=== PATIENT | male | born 1935 | race Caucasian/White ===

== ENCOUNTER 2017-05-01 11:37 | Inpatient (IN) | payer MEDICARE, BC ==
[~2017-05-01] VITALS: Ht 172.7 cm; Wt 91.5 kg
[~2017-05-01 11:37] MED LIST: ACET-2047 PO; ADV25050 INH; ASPI-664 PO; BISA-57 PO; CARV3.1260 PO; CLOB15OI15 TOP; DIAZ5TAB4 PO; FER325 PO; MAGN400T27 PO; MONT10TA24 PO; Nicotine (14 Mg/24 Hr) TRANSDERM; OMEG-135 PO; PARO40TA48 PO; RAMI2.5C36 PO; TIOT18CA INH; TIZA4TAB PO; VIT1TABL46 PO
[2017-05-01] MEDS ORDERED: METHYLPREDNISOLONE 125 MG INJ IV STA (12:05)
[2017-05-01] MEDS ORDERED: ALBUTEROL 0.083% (NEB) 2.5 MG/3 ML AMP INH STA (12:05)
[2017-05-01] MEDS ORDERED: LEVOFLOXACIN 750MG/D5W (PMX) 150 ML IVPB STA (12:05)
[2017-05-01] MEDS ORDERED: IPRATROPIUM (NEB) 0.5 MG/2.5 ML AMP INH STA (12:05)
[2017-05-01] MEDS ORDERED: ATOR20TA38 PO (12:30)
[2017-05-01] MEDS ORDERED: LUBI24CA7 PO (12:31)
[2017-05-01] MEDS ORDERED: ALBU18HF INHALATION (12:31)
[2017-05-01] MEDS ORDERED: TIOT18CA INHALATION (12:33)
[2017-05-01 12:49] LABS: ADD SCAN DIFF NO
[2017-05-01 12:53] LABS: BASOPHIL # 0.1 10^3/ul (0.0-0.1); BASOPHILS % 0.6 % (0.0-2.0); EOSINOPHILS # 0.6 10^3/ul (0.0-0.5); HEMATOCRIT 37.2 % (42.0-52.0); HEMOGLOBIN 12.2 g/dl (14.0-18.0); LYMPHOCYTES # 1.3 10^3/ul (0.8-2.9); MEAN CORPUSCULAR HEMOGLOBIN 30.1 pg (29.0-33.0); MEAN CORPUSCULAR HGB CONC 32.8 g/dl (32.0-37.0); MEAN CORPUSCULAR VOLUME 91.9 fl (82.0-101.0); MONOCYTE # 0.7 10^3/ul (0.3-0.9); MONOCYTES % 7.4 % (0.0-11.0); NEUTROPHIL # 6.9 10^3/ul (1.6-7.5); NEUTROPHILS % 71.8 % (39.0-77.0); PLATELET COUNT 143 10^3/UL (140-415); RED BLOOD COUNT 4.05 10^6/ul (4.70-6.10); RED CELL DISTRIBUTION WIDTH 15.5 % (11.5-14.5); WHITE BLOOD COUNT 9.6 10^3/ul (4.8-10.8)
[2017-05-01 12:54] LABS: MEAN PLATELET VOLUME 11.7 fl (7.4-10.4)
[2017-05-01 13:07] LABS: INR 0.86; PROTIME 11.7 Sec (12.2-14.2); PT RATIO 0.9
[2017-05-01 13:08] LABS: PARTIAL THROMBOPLASTIN TIME 27.8 Sec (25.0-35.0)
[2017-05-01 13:15] LABS: ANION GAP 9 (8-16); BLOOD UREA NITROGEN 20 mg/dl (7-20); CALCIUM 9.2 mg/dl (8.4-10.2); CARBON DIOXIDE 31 mmol/L (21-31); CHLORIDE 101 mmol/L (97-110); CREATININE 1.02 mg/dl (0.61-1.24); GLUCOSE 110 mg/dl (70-220); POTASSIUM 5.2 mmol/L (3.5-5.1); SODIUM 136 mmol/L (135-144)
[2017-05-01 13:32] LABS: TROPONIN-I < 0.012 ng/ml (0.00-0.12)
--- NOTE | 2017-05-01 13:57 | RADRPT ---
PROCEDURE: XR, Chest. CLINICAL INDICATION: Shortness of breath. TECHNIQUE: AP chest COMPARISON: Chest, 07/25/2016. FINDINGS: There is no acute infiltrate in the lungs. The lungs are overinflated. No pleural effusion. There is mild calcified atherosclerosis of the aortic arch. The heart is somewhat enlarged. IMPRESSION: 1. Overinflated lungs. 2. Mild cardiomegaly. Mild calcified atherosclerosis of the aortic arch. RPTAT: GG .Rubin Dunn MD, MD Date Time Electronically viewed and signed by .Rubin Dunn MD, MD on 05/01/2017 13:56 .Y/
[2017-05-01] MEDS ORDERED: ALBUTEROL 0.083% (NEB) 2.5 MG/3 ML AMP NEB STA (14:33)
[2017-05-01] MEDS ORDERED: ACETAMINOPHEN 325 MG TAB PO PRN ×2 (15:00→19:00)
[2017-05-01] MEDS ORDERED: ONDANSETRON 4 MG INJ IV PRN (15:00)
--- NOTE | 2017-05-01 15:06 | ERA ---
ER Documentation Chief Complaint Date/Time DATE: 05/01/17 TIME: 14:56 Chief Complaint SOB X1 DAY, NEEDED O2 ALL NIGHT HPI 81-year-old male with a history of COPD, CAD with 4 stents, and hypertension presenting to the ER with shortness of breath since yesterday. He has home oxygen available but is not on it all the time. He started using his home oxygen with improvement of his breathing. He endorses chronic cough with increased phlegm in the past 2 days. Phlegm is whitish milky. He denies any fevers, chills, chest pain, abdominal pain, or leg swelling. He continues to smoke daily. ROS All systems reviewed and are negative except as per history of present illness. Medications Home Meds Reported Medications Tiotropium [place]* (Spiriva*) 18 Mcg Cap.w.dev, 1 CAP INHALATION DAILY, #30 CAP 05/01/17 Albuterol Sulfate* (Ventolin HFA*) 18 Gm Hfa.aer.ad, 2 PUFF INHALATION Q6H Y for SHORTNESS OF BREATH, #1 INHALER 05/01/17 Lubiprostone* (Amitiza*) 24 Mcg Capsule, 24 MCG PO BID, #60 CAP 05/01/17 Atorvastatin Calcium* (Atorvastatin Calcium*) 20 Mg Tablet, 20 MG PO QHS, #30 TAB 05/01/17 Diazepam* (Diazepam*) 5 Mg Tablet, 5 MG PO BID, TAB 07/19/16 Carvedilol* (Carvedilol*) 3.125 Mg Tablet, 3.125 MG PO DAILY, #60 TAB 07/19/16 Magnesium Oxide* (Mag-Oxide*) 400 Mg Tablet, 400 MG PO BID, TAB 07/19/16 Montelukast Sodium* (Montelukast Sodium*) 10 Mg Tablet, 10 MG PO QHS, #30 TAB 07/19/16 Paroxetine Hcl* (Paxil*) 40 Mg Tablet, 40 MG PO DAILY, TAB 07/19/16 Ramipril (Ramipril) 2.5 Mg Capsule, 2.5 MG PO DAILY, CAP 07/19/16 Aspirin (Low Dose Aspirin) 81 Mg Tablet.dr, 81 MG PO DAILY, #30 TAB 07/19/16 Salmeterol Xinaf/Fluticasone* (Advair*) 250-50 Diskus Inhaler, 1 INH INH BID, INH 09/27/14 Ferrous Sulfate* (Ferrous Sulfate*) 325 Mg Tabec, 325 MG PO BID, TAB 09/27/14 Discontinued Reported Medications Clobetasol Propionate* (Clobetasol Propionate*) 15 Gm Oint, 1 APPLIC TOP BID, # 1 TUB 07/19/16 Acetaminophen* (Acetaminophen*) 650 Mg Tablet, 650 MG PO Q6H Y for PAIN AND OR ELEVATED TEMP, #30 TAB 07/19/16 [place]-3 Fatty Acids/Fish Oil (Fish Oil 1,000 mg Capsule) 1 Each Capsule, 1 EACH PO DAILY, CAP 07/19/16 Bisacodyl* (Dulcolax*) 5 Mg Tablet.dr, 5 MG PO DAILY, TAB 07/19/16 Vitamin B Complex* (Vitamin B Complex*) 1 Each Tablet, 1 TAB PO DAILY, TAB 07/19/16 Tizanidine Hcl* (Tizanidine Hcl*) 4 Mg Tablet, 4 MG PO BID Y for SPASTICITY, TAB 07/19/16 Tiotropium [place]* (Spiriva*) 18 Mcg Cap.w.dev, 18 MCG INH DAILY 12/15/11 Discontinued Scripts [Nicotine (14 Mg/24 Hr)] 1 PATCH PATCH No Conflict Check, 1 PATCH TRANSDERM DAILY Prov:BREEZY FRIAS MD 07/26/16 Allergies Allergies: Coded Allergies: No Known Allergy (Verified , 05/01/17) PMhx/Soc History of Surgery: Yes (see PT notes) Anesthesia Reaction: No Hx Neurological Disorder: No Hx Respiratory Disorders: Yes (COPD) Hx Cardiac Disorders: Yes (TX stents x 4, cardiac arrest ) Hx Psychiatric Problems: Yes (depression anxiety) Hx Miscellaneous Medical Probl: Yes (see PT notes, HTN) Hx Alcohol Use: No Hx Substance Use: No Hx Tobacco Use: Yes Smoking Status: Current every day smoker FmHx Family History: No diabetes Physical Exam Vitals Vital Signs Date Time Temp Pulse Resp B/P Pulse Ox O2 Delivery O2 Flow Rate FiO2 05/01/17 13:18 72 22 134/49 100 Mask 10.0 05/01/17 12:55 Nasal Cannula 3 05/01/17 12:45 79 20 96 21 05/01/17 12:45 2.0 05/01/17 12:01 94 Nasal Cannula 2.0 05/01/17 11:57 77 20 144/57 85 05/01/17 11:42 97.7 77 22 127/58 91 Physical Exam Const: Mild respiratory distress, nontoxic Head: Atraumatic Eyes: Normal Conjunctiva ENT: Normal External Ears, Nose and Mouth. Neck: Full range of motion..~ No meningismus. No JVD Resp: Diminished breath sounds bilaterally with significant expiratory wheezing throughout Cardio: Regular rate and rhythm, no murmurs Abd: Soft, non tender, non distended. Normal bowel sounds Skin: No petechiae or rashes Back: No midline or flank tenderness Ext: No cyanosis, or edema. No calf tenderness Neur: Awake and alert and oriented 3, cranial nerves grossly intact, strength and sensations intact. Psych: Normal Mood and Affect Result Diagram: 05/01/17 1225 05/01/17 1225 Results 24 hrs Laboratory Tests Test 05/01/17 12:25 White Blood Count 9.610^3/ul Red Blood Count 4.0510^6/ul Hemoglobin 12.2g/dl Hematocrit 37.2% Mean Corpuscular Volume 91.9fl Mean Corpuscular Hemoglobin 30.1pg Mean Corpuscular Hemoglobin Concent 32.8g/dl Red Cell Distribution Width 15.5% Platelet Count 54569^3/UL Mean Platelet Volume 11.7fl Neutrophils % 71.8% Lymphocytes % 14.0% Monocytes % 7.4% Eosinophils % 6.0% Basophils % 0.6% Nucleated Red Blood Cells % 0.0/100WBC Neutrophils # 6.910^3/ul Lymphocytes # 1.310^3/ul Monocytes # 0.710^3/ul Eosinophils # 0.610^3/ul Basophils # 0.110^3/ul Nucleated Red Blood Cells # 0.010^3/ul Prothrombin Time 11.7Sec Prothrombin Time Ratio 0.9 INR International Normalized Ratio 0.86 Activated Partial Thromboplast Time 27.8Sec Sodium Level 136mmol/L Potassium Level 5.2mmol/L Chloride Level 101mmol/L Carbon Dioxide Level 31mmol/L Anion Gap 9 Blood Urea Nitrogen 20mg/dl Creatinine 1.02mg/dl Glucose Level 110mg/dl Lactic Acid Level 1.2mmol/L Calcium Level 9.2mg/dl Troponin I < 0.012ng/ml Current Medications Medications (Trade) Dose Ordered Sig/Rolando Route PRN Reason Start Time Stop Time Status Last Admin Dose Admin Albuterol (Proventil 0.083% (Neb)) 7.5 mg ONCE STAT INH 05/01/17 12:05 05/01/17 12:08 DC 05/01/17 12:42 Ipratropium [place] (Atrovent 0.02% (Neb)) 0.5 mg ONCE STAT INH 05/01/17 12:05 05/01/17 12:08 DC 05/01/17 12:42 Methylprednisolone Sodium Succinate 125 mg 125 mg ONCE STAT IV 05/01/17 12:05 05/01/17 12:08 DC 05/01/17 12:50 Levofloxacin/ Dextrose (Levaquin 750 Mg/ D5W 150 ml (Pmx)) 150 ml @ 100 mls/hr ONCE STAT IVPB 05/01/17 12:05 05/01/17 13:34 DC 05/01/17 12:50 Albuterol (Proventil 0.083% (Neb)) 7.5 mg ONCE STAT NEB 05/01/17 14:33 05/01/17 14:35 DC Procedures/MDM EKG: Rate/Rhythm: Normal Sinus Rhythm QRS, ST, T-waves: No changes consistent w/ acute ischemia Impression: No evidence of ischemia or arrhythmia Chest x-ray shows no acute abnormality Labs show mild hyperkalemia, otherwise normal MDM Shortness of breath most consistent with COPD exacerbation. Vitals were notable for tachypnea and hypoxia on room air to 85%. Sepsis workup was initiated. Hypoxia improved with supplemental oxygen. Nebulizers, steroids and antibiotics administered without significant improvement or stabilization of symptoms. Considered URI, pneumonia, allergic reaction, PE, pericardial effusion, but less likely based on history and physical. EKG and CXR unremarkable. Patient will be admitted for respiratory monitoring and treatments. Further workup will be deferred to the inpatient team. Critical Care Time: 40 minutes Treatments/Evaluations: Close monitoring and treatment of unstable vital signs, cardiorespiratory, and neurologic status, while maintaining tight balance of fluid, respiratory, and cardiac interventions. This time includes discussing the case with the patient and the patients family. This time does not include all procedures stated elsewhere in this record. This time also includes reviewing old records, labs and radiological studies. This time includes examining and re-examining the patient. Additionally, this time also includes arranging care with admitting and consulting physicians. Accepting Care Team: Current data and ongoing care discussed. Time: Time of admission Primary Provider: Tabitha Consulting: none Outstanding Data: none Departure Diagnosis: Primary Impression: Acute respiratory failure with hypoxia and hypercapnia Additional Impression: COPD with exacerbation Condition: Serious KIMMY KIMBLE MD May 01, 2017 15:06
[2017-05-01 16:49] VITALS: Ht 172.7 cm; Wt 91.5 kg
[2017-05-01 17:14] VITALS: BP 102/58; PULSE 78; RESP 20
[2017-05-01 19:29] VITALS: BP 104/67; RESP 18
[2017-05-01] MEDS ORDERED: ALBUTEROL 18 GM INHALER INH PRN (20:30)
[2017-05-01] MEDS: MAGNESIUM OXIDE 400 MG TAB PO SCH (20:57)
[2017-05-01] MEDS: ATORVASTATIN 20 MG TAB PO SCH (20:57)
[2017-05-01] MEDS: FERROUS SULFATE (EC) 325 MG TAB PO SCH (20:57)
[2017-05-01] MEDS: MONTELUKAST 10 MG TAB PO SCH (20:58)
[2017-05-01] MEDS: LUBIPROSTONE 24 MCG CAP PO SCH (20:58)
[2017-05-01] MEDS: DIAZEPAM 5 MG TAB PO SCH (20:58)
[2017-05-01] MEDS: SALMETEROL/FLUTICASONE 250/50 INHA INH SCH (20:59)
[2017-05-01] MEDS ORDERED: METHYLPREDNISOLONE 40 MG INJ IV ONE (21:00)
[2017-05-02 06:07] LABS: ADD SCAN DIFF NO
[2017-05-02 06:13] LABS: BASOPHILS % 0.1 % (0.0-2.0); HEMATOCRIT 35.2 % (42.0-52.0); HEMOGLOBIN 11.4 g/dl (14.0-18.0); LYMPHOCYTES # 0.8 10^3/ul (0.8-2.9); LYMPHOCYTES % 7.2 % (15.0-51.0); MEAN CORPUSCULAR HEMOGLOBIN 29.5 pg (29.0-33.0); MEAN CORPUSCULAR HGB CONC 32.4 g/dl (32.0-37.0); MEAN PLATELET VOLUME 10.1 fl (7.4-10.4); MONOCYTE # 0.1 10^3/ul (0.3-0.9); MONOCYTES % 1.2 % (0.0-11.0); NEUTROPHIL # 10.4 10^3/ul (1.6-7.5); PLATELET COUNT 220 10^3/UL (140-415); RED BLOOD COUNT 3.87 10^6/ul (4.70-6.10); RED CELL DISTRIBUTION WIDTH 15.5 % (11.5-14.5); WHITE BLOOD COUNT 11.4 10^3/ul (4.8-10.8)
[2017-05-02 06:16] LABS: NEUTROPHILS % 91.1 % (39.0-77.0)
[2017-05-02 06:58] LABS: ALBUMIN/GLOBULIN RATIO 1.29; CALCIUM 9.3 mg/dl (8.4-10.2); CREATININE 1.07 mg/dl (0.61-1.24); MAGNESIUM 1.9 mg/dl (1.7-2.5); POTASSIUM 4.8 mmol/L (3.5-5.1); TOTAL PROTEIN 7.1 g/dl (6.1-8.1)
[2017-05-02 07:43] VITALS: BP 109/53; RESP 18
--- NOTE | 2017-05-02 08:19 | RADRPT ---
PROCEDURE: XR Chest 1 View. CLINICAL INDICATION: Shortness of breath TECHNIQUE: AP view of the chest was obtained. COMPARISON: Yesterday FINDINGS: The cardiomediastinal silhouette is within normal limits. Blunting left costophrenic angle is unchan ged. Atelectasis is noted at the lung bases. No consolidations are identified. No pneumothorax is seen. Mild interstitial prominence in both lungs is unchanged. The osseous structures are unchanged. IMPRESSION: Stable blunting of the left costophrenic angle that may reflect scarring or small pleural effusion. Atelectasis at the lung bases. Stable mild interstitial prominence in both lungs. Interstitial prominence could be chronic. RPTAT: AA .Kush Parra MD, Date Time Electronically viewed and signed by .Kush Parra MD, on 05/02/2017 08:19 .P/
[2017-05-02] MEDS: MAGNESIUM OXIDE 400 MG TAB PO SCH ×2 (08:26→20:42)
[2017-05-02] MEDS: LUBIPROSTONE 24 MCG CAP PO SCH ×2 (08:26→20:42)
[2017-05-02] MEDS: PAROXETINE 20 MG TAB PO SCH (08:27)
[2017-05-02] MEDS: FERROUS SULFATE (EC) 325 MG TAB PO SCH ×2 (08:28→20:42)
[2017-05-02] MEDS: ASPIRIN (EC) 81 MG TAB PO SCH (08:28)
[2017-05-02] MEDS: BENAZEPRIL 10 MG TAB PO SCH (08:32)
[2017-05-02] MEDS: TIOTROPIUM 18 MCG CAPSULE INHA DEV INH SCH (08:34)
[2017-05-02] MEDS: SALMETEROL/FLUTICASONE 250/50 INHA INH SCH ×2 (08:35→20:42)
[2017-05-02] MEDS: DIAZEPAM 5 MG TAB PO SCH ×2 (08:57→20:42)
[2017-05-02] MEDS: LEVOFLOXACIN 750MG/D5W (PMX) 150 ML IVPB SCH (13:33)
[2017-05-02 13:51] LABS: MODE NASAL CANNULA; MetHgb Venous 0.4 %; Sample Type Blood venous; Venous COHb 0.2 %; Venous Fraction OxyHgb 34.1 %; Venous Total Hemglobin 13.1 g/dl
--- NOTE | 2017-05-02 15:32 | PN ---
Date/Time of Note Date/Time of Note DATE: 05/02/17 TIME: 15:30 Assessment/Plan VTE Prophylaxis VTE Prophylaxis Intervention: other (asa) Lines/Catheters [facility]from [facility] Saline Lock Central line still needed: No Urinary Cath still in place: No Assessment/Plan Assessment/Plan 1. copd exacerbation/ pneumonitis 2. cad/ htn 3. djd ---cont atbx ---cont ivf ---cont RT ---cont all supportive cares Subjective 24 Hr Interval Summary Free Text/Dictation less sob Exam/Review of Systems Vital Signs Vitals Vital Signs Date Time Temp Pulse Resp B/P Pulse Ox O2 Delivery O2 Flow Rate FiO2 05/02/17 12:01 Nasal Cannula 2.0 05/02/17 07:43 98.0 80 18 109/53 92 05/01/17 12:45 21 Intake and Output 05/01/17 05/01/17 05/02/17 15:00 23:00 07:00 Intake Total 240 ml 800 ml Output Total 500 ml Balance 240 ml 300 ml Exam bronch wheez+ rr no edema Results Result Diagram: 05/02/17 0549 05/02/17 0549 Results 24 hrs Laboratory Tests Test 05/01/17 16:20 05/01/17 18:30 05/02/17 05:49 Lactic Acid Level 1.9 3.3 H White Blood Count 11.4 H Red Blood Count 3.87 L Hemoglobin 11.4 L Hematocrit 35.2 L Mean Corpuscular Volume 91.0 Mean Corpuscular Hemoglobin 29.5 Mean Corpuscular Hemoglobin Concent 32.4 Red Cell Distribution Width 15.5 H Platelet Count 220 # Mean Platelet Volume 10.1 Neutrophils % 91.1 H Lymphocytes % 7.2 L Monocytes % 1.2 Eosinophils % 0.0 Basophils % 0.1 Nucleated Red Blood Cells % 0.0 Neutrophils # 10.4 H Lymphocytes # 0.8 Monocytes # 0.1 L Eosinophils # 0.0 Basophils # 0.0 Nucleated Red Blood Cells # 0.0 Differential Comment AUTO w/SCAN Sodium Level 142 Potassium Level 4.8 Chloride Level 97 Carbon Dioxide Level 29 Anion Gap 21 #H Blood Urea Nitrogen 28 H Creatinine 1.07 Glucose Level 156 Calcium Level 9.3 Magnesium Level 1.9 Total Bilirubin 0.0 L Direct Bilirubin 0.00 Indirect Bilirubin 0.0 Aspartate Amino Transf (AST/SGOT) 18 Alanine Aminotransferase (ALT/SGPT) 24 Alkaline Phosphatase 80 Total Protein 7.1 Albumin 4.0 Globulin 3.10 Albumin/Globulin Ratio 1.29 Medications Medications Current Medications Albuterol (Ventolin Hfa) 2 puff Q6H PRN INH SHORTNESS OF BREATH; Start 05/01/17 at 20:30 Aspirin (Halfprin) 81 mg DAILY PO Last administered on 05/02/17 08:28; Admin Dose 81 MG; Start 05/02/17 at 09:00 Atorvastatin Calcium (Lipitor) 20 mg QHS PO Last administered on 05/01/17 20:57 ; Admin Dose 20 MG; Start 05/01/17 at 21:00 Carvedilol (Coreg) 3.125 mg DAILY PO Last administered on 05/02/17 08:32; Admin Dose 3.125 MG; Start 05/02/17 at 09:00 Diazepam (Valium) 5 mg BID PO Last administered on 05/02/17 08:57; Admin Dose 5 MG; Start 05/01/17 at 21:00 Ferrous Sulfate (Ferrous Sulfate (Ec)) 325 mg BID PO Last administered on 08:28; Admin Dose 325 MG; Start 05/01/17 at 21:00 Lubiprostone (Amitiza) 24 mcg BID PO Last administered on 05/02/17 08:26; Admin Dose 24 MCG; Start 05/01/17 at 21:00 Magnesium Oxide (Mag-Ox 400) 400 mg BID PO Last administered on 05/02/17 08:26 ; Admin Dose 400 MG; Start 05/01/17 at 21:00 Montelukast Sodium (Singulair) 10 mg QHS PO Last administered on 05/01/17 20:58 ; Admin Dose 10 MG; Start 05/01/17 at 21:00 Paroxetine HCl (Paxil) 40 mg DAILY PO Last administered on 05/02/17 08:27; Admin Dose 40 MG; Start 05/02/17 at 09:00 Salmeterol Xinafoate/ Fluticasone (Advair 250/50 Diskus) 1 inh BID INH Last administered on 05/02/17 08:35; Admin Dose 1 INH; Start 05/01/17 at 21:00 Benazepril HCl (Lotensin) 10 mg DAILY PO Last administered on 05/02/17 08:32; Admin Dose 10 MG; Start 05/02/17 at 09:00 Tiotropium [place] 1 inh 1 inh DAILY INH Last administered on 05/02/17 08:34; Admin Dose 1 INH; Start 05/02/17 at 09:00 Levofloxacin/ Dextrose (Levaquin 750 Mg/ D5W 150 ml (Pmx)) 150 ml @ 100 mls/hr Q24H IVPB Last administered on 05/02/17 13:33; Admin Dose 100 MLS/HR; Start 05/02/17 at 13:00 Acetaminophen (Tylenol Tab) 650 mg Q6H PRN PO PAIN AND OR ELEVATED TEMP; Start 05/01/17 at 19:00 ARNOLD TAM MD May 02, 2017 15:31
[2017-05-02 19:30] VITALS: BP 145/65; RESP 20
[2017-05-02] MEDS: ALBUTEROL/IPRATROPIUM (NEB) 3 ML AMP HHN PRN (20:22)
[2017-05-02] MEDS: ATORVASTATIN 20 MG TAB PO SCH (20:42)
[2017-05-02] MEDS: MONTELUKAST 10 MG TAB PO SCH (20:42)
[2017-05-03 06:09] LABS: ADD SCAN DIFF NO
[2017-05-03 06:17] LABS: BASOPHILS % 0.1 % (0.0-2.0); EOSINOPHILS # 0.1 10^3/ul (0.0-0.5); EOSINOPHILS % 0.3 % (0.0-7.0); HEMATOCRIT 36.2 % (42.0-52.0); HEMOGLOBIN 11.4 g/dl (14.0-18.0); LYMPHOCYTES % 13.9 % (15.0-51.0); MEAN CORPUSCULAR HEMOGLOBIN 28.9 pg (29.0-33.0); MEAN CORPUSCULAR HGB CONC 31.5 g/dl (32.0-37.0); MEAN CORPUSCULAR VOLUME 91.9 fl (82.0-101.0); MONOCYTE # 1.3 10^3/ul (0.3-0.9); MONOCYTES % 8.8 % (0.0-11.0); NEUTROPHILS % 76.6 % (39.0-77.0); PLATELET COUNT 217 10^3/UL (140-415); RED BLOOD COUNT 3.94 10^6/ul (4.70-6.10); RED CELL DISTRIBUTION WIDTH 15.9 % (11.5-14.5); WHITE BLOOD COUNT 14.4 10^3/ul (4.8-10.8)
[2017-05-03 06:52] LABS: CALCIUM 9.5 mg/dl (8.4-10.2); CREATININE 1.11 mg/dl (0.61-1.24); MAGNESIUM 1.9 mg/dl (1.7-2.5); POTASSIUM 4.9 mmol/L (3.5-5.1)
[2017-05-03 07:56] VITALS: BP 124/58; RESP 18
[2017-05-03] MEDS: LUBIPROSTONE 24 MCG CAP PO SCH ×2 (08:24→20:37)
[2017-05-03] MEDS: ASPIRIN (EC) 81 MG TAB PO SCH (08:24)
[2017-05-03] MEDS: PAROXETINE 20 MG TAB PO SCH (08:25)
[2017-05-03] MEDS: BENAZEPRIL 10 MG TAB PO SCH (08:26)
[2017-05-03] MEDS: FERROUS SULFATE (EC) 325 MG TAB PO SCH ×2 (08:26→20:37)
[2017-05-03] MEDS: MAGNESIUM OXIDE 400 MG TAB PO SCH ×2 (08:26→20:37)
[2017-05-03] MEDS: TIOTROPIUM 18 MCG CAPSULE INHA DEV INH SCH (08:27)
[2017-05-03] MEDS: SALMETEROL/FLUTICASONE 250/50 INHA INH SCH ×2 (08:27→20:37)
[2017-05-03] MEDS: DIAZEPAM 5 MG TAB PO SCH ×2 (08:29→20:37)
[2017-05-03] MEDS: LEVOFLOXACIN 750MG/D5W (PMX) 150 ML IVPB SCH (13:22)
[2017-05-03] MEDS ORDERED: SOD CHLORIDE 0.9% 500 ML IV ONE (15:00)
--- NOTE | 2017-05-03 15:04 | PN ---
Date/Time of Note Date/Time of Note DATE: 05/03/17 TIME: 15:01 Assessment/Plan VTE Prophylaxis VTE Prophylaxis Intervention: other (asa) Lines/Catheters [facility] Type [facility] Saline Lock Central line still needed: No Urinary Cath still in place: No Assessment/Plan Assessment/Plan 1. copd/ pneumonitis 2. htn/ 3. depression/ dementia 4. kae/ anemia ---full admit into hosp ---cont atbx ---cont all supportive care ---casework specialist to speak w/ re: snf transfer Subjective 24 Hr Interval Summary Free Text/Dictation less coughs Exam/Review of Systems Vital Signs Vitals Vital Signs Date Time Temp Pulse Resp B/P Pulse Ox O2 Delivery O2 Flow Rate FiO2 05/03/17 11:25 Nasal Cannula 2.0 05/03/17 07:56 98.2 63 18 124/58 93 05/01/17 12:45 21 Intake and Output 05/02/17 05/02/17 05/03/17 15:00 23:00 07:00 Intake Total 950 ml 800 ml Output Total 200 ml 600 ml Balance 750 ml 200 ml Exam rr dec bs, bronch wheez+ no edema Results Result Diagram: 05/03/17 0510 05/03/17 0518 Results 24 hrs Laboratory Tests Test 05/03/17 05:10 05/03/17 05:18 White Blood Count 14.4 #H Red Blood Count 3.94 L Hemoglobin 11.4 L Hematocrit 36.2 L Mean Corpuscular Volume 91.9 Mean Corpuscular Hemoglobin 28.9 L Mean Corpuscular Hemoglobin Concent 31.5 L Red Cell Distribution Width 15.9 H Platelet Count 217 Mean Platelet Volume 10.0 Neutrophils % 76.6 Lymphocytes % 13.9 L Monocytes % 8.8 Eosinophils % 0.3 Basophils % 0.1 Nucleated Red Blood Cells % 0.0 Neutrophils # 11.0 H Lymphocytes # 2.0 Monocytes # 1.3 H Eosinophils # 0.1 Basophils # 0.0 Nucleated Red Blood Cells # 0.0 Sodium Level 141 Potassium Level 4.9 Chloride Level 95 L Carbon Dioxide Level 36 H Anion Gap 15 Blood Urea Nitrogen 44 #H Creatinine 1.11 Glucose Level 96 # Calcium Level 9.5 Magnesium Level 1.9 Medications Medications Current Medications Albuterol (Ventolin Hfa) 2 puff Q6H PRN INH SHORTNESS OF BREATH; Start 05/01/17 at 20:30 Aspirin (Halfprin) 81 mg DAILY PO Last administered on 05/03/17 08:24; Admin Dose 81 MG; Start 05/02/17 at 09:00 Atorvastatin Calcium (Lipitor) 20 mg QHS PO Last administered on 05/02/17 20:42 ; Admin Dose 20 MG; Start 05/01/17 at 21:00 Carvedilol (Coreg) 3.125 mg DAILY PO Last administered on 05/03/17 08:27; Admin Dose 3.125 MG; Start 05/02/17 at 09:00 Diazepam (Valium) 5 mg BID PO Last administered on 05/03/17 08:29; Admin Dose 5 MG; Start 05/01/17 at 21:00 Ferrous Sulfate (Ferrous Sulfate (Ec)) 325 mg BID PO Last administered on 08:26; Admin Dose 325 MG; Start 05/01/17 at 21:00 Lubiprostone (Amitiza) 24 mcg BID PO Last administered on 05/03/17 08:24; Admin Dose 24 MCG; Start 05/01/17 at 21:00 Magnesium Oxide (Mag-Ox 400) 400 mg BID PO Last administered on 05/03/17 08:26 ; Admin Dose 400 MG; Start 05/01/17 at 21:00 Montelukast Sodium (Singulair) 10 mg QHS PO Last administered on 05/02/17 20:42 ; Admin Dose 10 MG; Start 05/01/17 at 21:00 Paroxetine HCl (Paxil) 40 mg DAILY PO Last administered on 05/03/17 08:25; Admin Dose 40 MG; Start 05/02/17 at 09:00 Salmeterol Xinafoate/ Fluticasone (Advair 250/50 Diskus) 1 inh BID INH Last administered on 05/03/17 08:27; Admin Dose 1 INH; Start 05/01/17 at 21:00 Benazepril HCl (Lotensin) 10 mg DAILY PO Last administered on 05/03/17 08:26; Admin Dose 10 MG; Start 05/02/17 at 09:00 Tiotropium [place] 1 inh 1 inh DAILY INH Last administered on 05/03/17 08:27; Admin Dose 1 INH; Start 05/02/17 at 09:00 Levofloxacin/ Dextrose (Levaquin 750 Mg/ D5W 150 ml (Pmx)) 150 ml @ 100 mls/hr Q24H IVPB Last administered on 05/03/17t 13:22; Admin Dose 100 MLS/HR; Start 05/02/17 at 13:00 Acetaminophen (Tylenol Tab) 650 mg Q6H PRN PO PAIN AND OR ELEVATED TEMP; Start 05/01/17 at 19:00 ARNOLD TAM MD May 03, 2017 15:04
[2017-05-03] MEDS: SOD CHLORIDE 0.9% 1,000 ML IV SCH (16:51)
[2017-05-03] MEDS: NICOTINE (21 MG/24 HR) PATCH TRANSDERM SCH (17:50)
[2017-05-03 19:54] VITALS: BP 115/55; RESP 18
[2017-05-03] MEDS: ATORVASTATIN 20 MG TAB PO SCH (20:37)
[2017-05-03] MEDS: MONTELUKAST 10 MG TAB PO SCH (20:37)
[2017-05-04 02:00] VITALS: BP 124/92; RESP 18
[2017-05-04] MEDS: SOD CHLORIDE 0.9% 1,000 ML IV SCH ×3 (04:20→17:40)
[2017-05-04 05:37] LABS: ADD SCAN DIFF NO
[2017-05-04 05:45] LABS: BASOPHILS % 0.3 % (0.0-2.0); EOSINOPHILS # 0.2 10^3/ul (0.0-0.5); EOSINOPHILS % 1.4 % (0.0-7.0); HEMATOCRIT 36.5 % (42.0-52.0); HEMOGLOBIN 11.6 g/dl (14.0-18.0); LYMPHOCYTES # 2.2 10^3/ul (0.8-2.9); LYMPHOCYTES % 20.5 % (15.0-51.0); MEAN CORPUSCULAR HEMOGLOBIN 29.1 pg (29.0-33.0); MEAN CORPUSCULAR HGB CONC 31.8 g/dl (32.0-37.0); MEAN CORPUSCULAR VOLUME 91.5 fl (82.0-101.0); MEAN PLATELET VOLUME 10.1 fl (7.4-10.4); MONOCYTE # 1.2 10^3/ul (0.3-0.9); MONOCYTES % 10.7 % (0.0-11.0); NEUTROPHIL # 7.2 10^3/ul (1.6-7.5); NEUTROPHILS % 66.8 % (39.0-77.0); PLATELET COUNT 205 10^3/UL (140-415); RED BLOOD COUNT 3.99 10^6/ul (4.70-6.10); RED CELL DISTRIBUTION WIDTH 15.9 % (11.5-14.5); WHITE BLOOD COUNT 10.7 10^3/ul (4.8-10.8)
[2017-05-04 06:14] LABS: CALCIUM 9.2 mg/dl (8.4-10.2); CREATININE 1.09 mg/dl (0.61-1.24); POTASSIUM 4.8 mmol/L (3.5-5.1)
[2017-05-04 08:20] VITALS: BP 131/60; RESP 20
[2017-05-04] MEDS: PAROXETINE 20 MG TAB PO SCH (08:52)
[2017-05-04] MEDS: LUBIPROSTONE 24 MCG CAP PO SCH ×2 (08:52→20:40)
[2017-05-04] MEDS: MAGNESIUM OXIDE 400 MG TAB PO SCH ×2 (08:52→20:40)
[2017-05-04] MEDS: FERROUS SULFATE (EC) 325 MG TAB PO SCH ×2 (08:52→20:40)
[2017-05-04] MEDS: DIAZEPAM 5 MG TAB PO SCH ×2 (08:52→20:40)
[2017-05-04] MEDS: ASPIRIN (EC) 81 MG TAB PO SCH (08:52)
[2017-05-04] MEDS: TIOTROPIUM 18 MCG CAPSULE INHA DEV INH SCH (08:53)
[2017-05-04] MEDS: NICOTINE (21 MG/24 HR) PATCH TRANSDERM SCH (08:53)
[2017-05-04] MEDS: SALMETEROL/FLUTICASONE 250/50 INHA INH SCH ×2 (08:54→20:40)
[2017-05-04 08:55] VITALS: BP 108/54; PULSE 70
[2017-05-04 10:15] VITALS: BP 121/57; PULSE 65
[2017-05-04] MEDS: BENAZEPRIL 10 MG TAB PO SCH (10:15)
[2017-05-04] MEDS: LEVOFLOXACIN 750MG/D5W (PMX) 150 ML IVPB SCH (12:15)
[2017-05-04 19:28] VITALS: BP 97/52; RESP 20
[2017-05-04] MEDS: ALBUTEROL/IPRATROPIUM (NEB) 3 ML AMP HHN PRN (20:04)
[2017-05-04] MEDS: ATORVASTATIN 20 MG TAB PO SCH (20:40)
[2017-05-04] MEDS: MONTELUKAST 10 MG TAB PO SCH (20:40)
[2017-05-05] MEDS: SOD CHLORIDE 0.9% 1,000 ML IV SCH ×3 (01:43→19:48)
[2017-05-05 01:48] VITALS: BP 125/60; RESP 20
[2017-05-05 08:06] VITALS: BP 113/58; RESP 22
[2017-05-05] MEDS: TIOTROPIUM 18 MCG CAPSULE INHA DEV INH SCH (09:18)
[2017-05-05] MEDS: SALMETEROL/FLUTICASONE 250/50 INHA INH SCH ×2 (09:18→21:42)
[2017-05-05] MEDS: ASPIRIN (EC) 81 MG TAB PO SCH (09:18)
[2017-05-05] MEDS: MAGNESIUM OXIDE 400 MG TAB PO SCH ×2 (09:19→21:42)
[2017-05-05] MEDS: BENAZEPRIL 10 MG TAB PO SCH (09:19)
[2017-05-05] MEDS: NICOTINE (21 MG/24 HR) PATCH TRANSDERM SCH (09:19)
[2017-05-05] MEDS: PAROXETINE 20 MG TAB PO SCH (09:20)
[2017-05-05] MEDS: LUBIPROSTONE 24 MCG CAP PO SCH ×2 (09:20→21:41)
[2017-05-05] MEDS: FERROUS SULFATE (EC) 325 MG TAB PO SCH ×2 (09:20→21:42)
[2017-05-05] MEDS: DIAZEPAM 5 MG TAB PO SCH ×2 (09:26→21:42)
[2017-05-05] MEDS: LEVOFLOXACIN 750MG/D5W (PMX) 150 ML IVPB SCH (12:13)
[2017-05-05 19:22] VITALS: BP 105/50; RESP 18
[2017-05-05] MEDS: ATORVASTATIN 20 MG TAB PO SCH (21:42)
[2017-05-05] MEDS: MONTELUKAST 10 MG TAB PO SCH (21:42)
[2017-05-06 02:00] VITALS: BP 121/60; RESP 18
[2017-05-06 06:23] LABS: ADD SCAN DIFF NO
[2017-05-06 06:30] LABS: BASOPHILS % 0.4 % (0.0-2.0); EOSINOPHILS # 0.2 10^3/ul (0.0-0.5); HEMATOCRIT 34.5 % (42.0-52.0); HEMOGLOBIN 11.3 g/dl (14.0-18.0); LYMPHOCYTES # 1.4 10^3/ul (0.8-2.9); LYMPHOCYTES % 16.9 % (15.0-51.0); MEAN CORPUSCULAR HEMOGLOBIN 29.7 pg (29.0-33.0); MEAN CORPUSCULAR HGB CONC 32.8 g/dl (32.0-37.0); MEAN CORPUSCULAR VOLUME 90.8 fl (82.0-101.0); MEAN PLATELET VOLUME 10.3 fl (7.4-10.4); MONOCYTES % 12.7 % (0.0-11.0); NEUTROPHIL # 5.4 10^3/ul (1.6-7.5); NEUTROPHILS % 66.8 % (39.0-77.0); PLATELET COUNT 180 10^3/UL (140-415); RED CELL DISTRIBUTION WIDTH 15.8 % (11.5-14.5); WHITE BLOOD COUNT 8.1 10^3/ul (4.8-10.8)
[2017-05-06 06:56] LABS: CALCIUM 8.4 mg/dl (8.4-10.2); CREATININE 1.01 mg/dl (0.61-1.24); POTASSIUM 4.2 mmol/L (3.5-5.1)
[2017-05-06 08:14] VITALS: BP 140/64; RESP 18
[2017-05-06] MEDS: SALMETEROL/FLUTICASONE 250/50 INHA INH SCH ×2 (10:39→20:48)
[2017-05-06] MEDS: MAGNESIUM OXIDE 400 MG TAB PO SCH ×2 (10:40→20:47)
[2017-05-06] MEDS: TIOTROPIUM 18 MCG CAPSULE INHA DEV INH SCH (10:40)
[2017-05-06] MEDS: LUBIPROSTONE 24 MCG CAP PO SCH ×2 (10:40→20:48)
[2017-05-06] MEDS: PAROXETINE 20 MG TAB PO SCH (10:40)
[2017-05-06] MEDS: DIAZEPAM 5 MG TAB PO SCH ×2 (10:41→20:51)
[2017-05-06] MEDS: SOD CHLORIDE 0.9% 1,000 ML IV SCH ×2 (10:41→23:00)
[2017-05-06] MEDS: FERROUS SULFATE (EC) 325 MG TAB PO SCH ×2 (10:41→20:47)
[2017-05-06] MEDS: BENAZEPRIL 10 MG TAB PO SCH (10:41)
[2017-05-06] MEDS: NICOTINE (21 MG/24 HR) PATCH TRANSDERM SCH (10:41)
[2017-05-06] MEDS: ASPIRIN (EC) 81 MG TAB PO SCH (10:41)
[2017-05-06 10:47] VITALS: BP 134/60; PULSE 76
[2017-05-06] MEDS: ALBUTEROL/IPRATROPIUM (NEB) 3 ML AMP HHN PRN (12:00)
[2017-05-06] MEDS: LEVOFLOXACIN 750MG/D5W (PMX) 150 ML IVPB SCH (13:53)
[2017-05-06 20:00] VITALS: BP 136/58; RESP 18
[2017-05-06] MEDS: MONTELUKAST 10 MG TAB PO SCH (20:47)
[2017-05-06] MEDS: ATORVASTATIN 20 MG TAB PO SCH (20:47)
[2017-05-07] MEDS: SOD CHLORIDE 0.9% 1,000 ML IV SCH ×2 (01:10→22:30)
[2017-05-07 02:00] VITALS: BP 132/62; RESP 20
[2017-05-07 06:05] LABS: ADD SCAN DIFF NO
[2017-05-07 06:45] LABS: BASOPHILS % 0.4 % (0.0-2.0); EOSINOPHILS # 0.2 10^3/ul (0.0-0.5); EOSINOPHILS % 2.2 % (0.0-7.0); HEMATOCRIT 35.6 % (42.0-52.0); HEMOGLOBIN 11.6 g/dl (14.0-18.0); LYMPHOCYTES # 1.6 10^3/ul (0.8-2.9); LYMPHOCYTES % 17.1 % (15.0-51.0); MEAN CORPUSCULAR HEMOGLOBIN 29.5 pg (29.0-33.0); MEAN CORPUSCULAR HGB CONC 32.6 g/dl (32.0-37.0); MEAN CORPUSCULAR VOLUME 90.6 fl (82.0-101.0); MEAN PLATELET VOLUME 10.4 fl (7.4-10.4); MONOCYTE # 1.2 10^3/ul (0.3-0.9); MONOCYTES % 12.3 % (0.0-11.0); NEUTROPHIL # 6.5 10^3/ul (1.6-7.5); NEUTROPHILS % 67.7 % (39.0-77.0); PLATELET COUNT 191 10^3/UL (140-415); RED BLOOD COUNT 3.93 10^6/ul (4.70-6.10); RED CELL DISTRIBUTION WIDTH 15.6 % (11.5-14.5); WHITE BLOOD COUNT 9.5 10^3/ul (4.8-10.8)
[2017-05-07 06:58] LABS: CALCIUM 9.1 mg/dl (8.4-10.2); CREATININE 0.9 mg/dl (0.61-1.24); POTASSIUM 4.4 mmol/L (3.5-5.1)
[2017-05-07 07:24] VITALS: BP 141/63; RESP 20
[2017-05-07] MEDS: LUBIPROSTONE 24 MCG CAP PO SCH ×2 (09:00→21:16)
[2017-05-07] MEDS: NICOTINE (21 MG/24 HR) PATCH TRANSDERM SCH (09:41)
[2017-05-07] MEDS: BENAZEPRIL 10 MG TAB PO SCH (09:42)
[2017-05-07] MEDS: PAROXETINE 20 MG TAB PO SCH (09:42)
[2017-05-07] MEDS: FERROUS SULFATE (EC) 325 MG TAB PO SCH ×3 (09:42→21:17)
[2017-05-07] MEDS: ASPIRIN (EC) 81 MG TAB PO SCH (09:42)
[2017-05-07] MEDS: MAGNESIUM OXIDE 400 MG TAB PO SCH ×2 (09:42→21:17)
[2017-05-07] MEDS: DIAZEPAM 5 MG TAB PO SCH ×2 (09:49→21:18)
[2017-05-07] MEDS: SALMETEROL/FLUTICASONE 250/50 INHA INH SCH ×2 (09:50→21:16)
[2017-05-07] MEDS: TIOTROPIUM 18 MCG CAPSULE INHA DEV INH SCH (09:50)
[2017-05-07] MEDS: LEVOFLOXACIN 750MG/D5W (PMX) 150 ML IVPB SCH (12:45)
[2017-05-07 20:38] VITALS: BP 130/59; RESP 18
[2017-05-07] MEDS: MONTELUKAST 10 MG TAB PO SCH (21:17)
[2017-05-07] MEDS: ATORVASTATIN 20 MG TAB PO SCH (21:17)
--- NOTE | 2017-05-07 23:04 | PDOCDIS ---
Discharge Instructions DIAGNOSIS Discharge Diagnosis COPD EXACERBATION, PNEUMONITIS, HTN, HIGH CHOL, DEMENTIA, DEPRESSION, BPH, WORSENING MOBILITY CONDITION Patient Condition: Fair HOME CARE INSTRUCTIONS: Diet Instructions: 2gm NaSpecial Diet: LOW CHOLESTEROL, LOW FAT DIET ACTIVITY: Activity Restrictions: No Restrictions Bathing Restrictions: Shower FOLLOW UP/APPOINTMENTS Follow-up Plan W/IN 1 WEEK, WITH DR Flower FRIAS,ARNOLD PEREZ MD May 07, 2017 23:04
--- NOTE | 2017-05-07 23:08 | PN ---
Date/Time of Note Date/Time of Note DATE: 05/04/17 TIME: 13:05 Assessment/Plan VTE Prophylaxis VTE Prophylaxis Intervention: ambulation Lines/Catheters IV Catheter Type (from Nrs): Peripheral IV Central line still needed: No Urinary Cath still in place: No Assessment/Plan Assessment/Plan 1. COPD EXACERBATION/ PNEUMONITIS 2. HTN/ CHF 3. DEPRESSION/ DEMENTIA 4. DEBILITY 5. DEHYDRATION/ SOCORRO ---CONT IV ATBX ---RESTART IVF ---CONT ALL SUPPORTIVE CARES ---MUST DECIDE WHETHER TO GO TO SNF REHAB OR HOME W/ HHC Subjective 24 Hr Interval Summary Free Text/Dictation LESS SOB, STILL WEAK ARNOLD TAM MD May 07, 2017 23:07
--- NOTE | 2017-05-07 23:09 | PN ---
Date/Time of Note Date/Time of Note DATE: 05/07/17 TIME: 23:08 Assessment/Plan VTE Prophylaxis VTE Prophylaxis Intervention: ambulation Lines/Catheters IV Catheter Type (from Nrs): Peripheral IV Central line still needed: No Urinary Cath still in place: No Assessment/Plan Assessment/Plan 1. COPD EXACERBATION/ PNEUMONITIS 2. HTN/ CHF 3. SOCORRO/ DEHYDRATION 4. DEPRESSION/ DEMENTIA 5. DEBILITY ---FINISH OFF IV ATBX ---D/C IVF ---PLAN TO TRANSFER PT TO [facility] TOMORROW, 05/08 10AM VIA AMBULANCE Subjective 24 Hr Interval Summary Free Text/Dictation WANT TO SMOKE, OR GIVE ME NICOTINE PATCH Exam/Review of Systems Vital Signs Vitals Vital Signs Date Time Temp Pulse Resp B/P Pulse Ox O2 Delivery O2 Flow Rate FiO2 05/07/17 20:38 98.5 74 18 130/59 92 05/07/17 08:00 Nasal Cannula 2.0 05/06/17 12:01 32 Intake and Output 05/06/17 05/06/17 05/07/17 15:00 23:00 07:00 Intake Total 1800 ml 1200 ml 1980 ml Output Total 850 ml 1300 ml 1150 ml Balance 950 ml -100 ml 830 ml Exam DISHEVELLED, WITH NICOTINE PATCH, STILL W/ DRY COUGHS, LESS USING ACC. MUSC TO BREATHE, DEC BS BIBASILAR, NO EDEMA Results Result Diagram: 05/07/17 0529 05/07/17 0529 Results 24 hrs Laboratory Tests Test 05/07/17 05:29 White Blood Count 9.5 Red Blood Count 3.93 L Hemoglobin 11.6 L Hematocrit 35.6 L Mean Corpuscular Volume 90.6 Mean Corpuscular Hemoglobin 29.5 Mean Corpuscular Hemoglobin Concent 32.6 Red Cell Distribution Width 15.6 H Platelet Count 191 Mean Platelet Volume 10.4 Neutrophils % 67.7 Lymphocytes % 17.1 Monocytes % 12.3 H Eosinophils % 2.2 Basophils % 0.4 Nucleated Red Blood Cells % 0.0 Neutrophils # 6.5 Lymphocytes # 1.6 Monocytes # 1.2 H Eosinophils # 0.2 Basophils # 0.0 Nucleated Red Blood Cells # 0.0 Sodium Level 140 Potassium Level 4.4 Chloride Level 98 Carbon Dioxide Level 31 Anion Gap 15 Blood Urea Nitrogen 25 H Creatinine 0.90 Glucose Level 99 Calcium Level 9.1 Medications Medications Current Medications Albuterol (Ventolin Hfa) 2 puff Q6H PRN INH SHORTNESS OF BREATH; Start 05/01/17 at 20:30 Aspirin (Halfprin) 81 mg DAILY PO Last administered on 05/07/17 09:42; Admin Dose 81 MG; Start 05/02/17 at 09:00 Atorvastatin Calcium (Lipitor) 20 mg QHS PO Last administered on 05/07/17 21: 17; Admin Dose 20 MG; Start 05/01/17 at 21:00 Carvedilol (Coreg) 3.125 mg DAILY PO Last administered on 05/07/17 09:42; Admin Dose 3.125 MG; Start 05/02/17 at 09:00 Diazepam (Valium) 5 mg BID PO Last administered on 05/07/17 21:18; Admin Dose 5 MG; Start 05/01/17 at 21:00 Ferrous Sulfate (Ferrous Sulfate (Ec)) 325 mg BID PO Last administered on 21:17; Admin Dose 325 MG; Start 05/01/17 at 21:00 Lubiprostone (Amitiza) 24 mcg BID PO Last administered on 05/07/17 21:16; Admin Dose 24 MCG; Start 05/01/17 at 21:00 Magnesium Oxide (Mag-Ox 400) 400 mg BID PO Last administered on 05/07/17 21:17 ; Admin Dose 400 MG; Start 05/01/17 at 21:00 Montelukast Sodium (Singulair) 10 mg QHS PO Last administered on 05/07/17 21: 17; Admin Dose 10 MG; Start 05/01/17 at 21:00 Paroxetine HCl (Paxil) 40 mg DAILY PO Last administered on 05/07/17 09:42; Admin Dose 40 MG; Start 05/02/17 at 09:00 Salmeterol Xinafoate/ Fluticasone (Advair 250/50 Diskus) 1 inh BID INH Last administered on 05/07/17 21:16; Admin Dose 1 INH; Start 05/01/17 at 21:00 Benazepril HCl (Lotensin) 10 mg DAILY PO Last administered on 05/07/17 09:42; Admin Dose 10 MG; Start 05/02/17 at 09:00 Tiotropium [place] (Spiriva) 1 inh DAILY INH Last administered on 05/07/17 09: 50; Admin Dose 1 INH; Start 05/02/17 at 09:00 Acetaminophen (Tylenol Tab) 650 mg Q6H PRN PO PAIN AND OR ELEVATED TEMP Last administered on 05/04/17 10:47; Admin Dose 650 MG; Start 05/01/17 at 19:00 Nicotine (Nicoderm 21 Mg/ 24hr) 1 patch DAILY TRANSDERM Last administered on 09:41; Admin Dose 1 PATCH; Start 05/03/17 at 16:30 Levofloxacin (Levaquin) 750 mg DAILY@06 PO ; Start 05/08/17 at 06:00 ARNOLD TAM MD May 07, 2017 23:09
--- NOTE | 2017-05-07 23:30 | DS ---
Date/Time of Note Date/Time of Note DATE: 05/07/17 TIME: 23:15 Discharge Summary Admission/Discharge Info Admit Date/Time May 03, 2017 at 15:10 Discharge Date/Time 05/08/2017 1000 Discharge Diagnosis COPD EXACERBATION, PNEUMONITIS, HTN, HIGH CHOL, DEMENTIA, DEPRESSION, BPH, WORSENING MOBILITY Patient Condition: Fair Consults ID, PULM Procedures CXR, BLOOD & URINE LABS Hx of Present Illness CAME TO [facility] ER C/O SOB WHILE AT HOME, WAS ADMITTED TO RECEIVE IV ATBX, SOLUMEDROL IV, IVF. Hospital Course RESPONDED WELL WITH ALL MEDS WITH IN 72 HRS. BREATHING BECAME MORE EASY, KIDNEY FUNCTION IMPROVED, ATE BETTER, WALKED TO BATHROOM & HALLWAY BETTER W/ ASSISTANCE. WHILE IN HOSP, DID NOT SMOKE CIGARETTES. SINCE HOME CARE PER ELDERLY IS BECOMING DIFFICULT, RECOMMENDATION WAS MADE FOR PT TO GO TO [facility] FOR FURTHER RESPIRATORY & MUSCULAR REHABS, PRIOR GOING HOME LATER. TODAY, VSS/ AFEBRILE. Home Meds Reported Medications Tiotropium [place]* (Spiriva*) 18 Mcg Cap.w.dev, 1 CAP INHALATION DAILY, #30 CAP 05/01/17 Albuterol Sulfate* (Ventolin HFA*) 18 Gm Hfa.aer.ad, 2 PUFF INHALATION Q6H Y for SHORTNESS OF BREATH, #1 INHALER 05/01/17 Lubiprostone* (Amitiza*) 24 Mcg Capsule, 24 MCG PO BID, #60 CAP 05/01/17 Atorvastatin Calcium* (Atorvastatin Calcium*) 20 Mg Tablet, 20 MG PO QHS, #30 TAB 05/01/17 Diazepam* (Diazepam*) 5 Mg Tablet, 5 MG PO BID, TAB 07/19/16 Carvedilol* (Carvedilol*) 3.125 Mg Tablet, 3.125 MG PO DAILY, #60 TAB 07/19/16 Magnesium Oxide* (Mag-Oxide*) 400 Mg Tablet, 400 MG PO BID, TAB 07/19/16 Montelukast Sodium* (Montelukast Sodium*) 10 Mg Tablet, 10 MG PO QHS, #30 TAB 07/19/16 Paroxetine Hcl* (Paxil*) 40 Mg Tablet, 40 MG PO DAILY, TAB 07/19/16 Ramipril (Ramipril) 2.5 Mg Capsule, 2.5 MG PO DAILY, CAP 07/19/16 Aspirin (Low Dose Aspirin) 81 Mg Tablet.dr, 81 MG PO DAILY, #30 TAB 07/19/16 Salmeterol Xinaf/Fluticasone* (Advair*) 250-50 Diskus Inhaler, 1 INH INH BID, INH 09/27/14 Ferrous Sulfate* (Ferrous Sulfate*) 325 Mg Tabec, 325 MG PO BID, TAB 09/27/14 Discontinued Reported Medications Clobetasol Propionate* (Clobetasol Propionate*) 15 Gm Oint, 1 APPLIC TOP BID, # 1 TUB 07/19/16 Acetaminophen* (Acetaminophen*) 650 Mg Tablet, 650 MG PO Q6H Y for PAIN AND OR ELEVATED TEMP, #30 TAB 07/19/16 [place]-3 Fatty Acids/Fish Oil (Fish Oil 1,000 mg Capsule) 1 Each Capsule, 1 EACH PO DAILY, CAP 07/19/16 Bisacodyl* (Dulcolax*) 5 Mg Tablet.dr, 5 MG PO DAILY, TAB 07/19/16 Vitamin B Complex* (Vitamin B Complex*) 1 Each Tablet, 1 TAB PO DAILY, TAB 07/19/16 Tizanidine Hcl* (Tizanidine Hcl*) 4 Mg Tablet, 4 MG PO BID Y for SPASTICITY, TAB 07/19/16 Tiotropium [place]* (Spiriva*) 18 Mcg Cap.w.dev, 18 MCG INH DAILY 12/15/11 Discontinued Scripts [Nicotine (14 Mg/24 Hr)] 1 PATCH PATCH No Conflict Check, 1 PATCH TRANSDERM DAILY Prov:BREEZY HARVEY MD 07/26/16 Follow-up Plan W/IN 1 WEEK WITH PMD Primary Care Provider Breezy Harvey MD Time spent on discharge: < 30 minutes Pending Labs Laboratory Tests Test 05/07/17 05:29 White Blood Count 9.510^3/ul (4.8-10.8) Red Blood Count 3.9310^6/ul (4.70-6.10) Hemoglobin 11.6g/dl (14.0-18.0) Hematocrit 35.6% (42.0-52.0) Mean Corpuscular Volume 90.6fl (82.0-101.0) Mean Corpuscular Hemoglobin 29.5pg (29.0-33.0) Mean Corpuscular Hemoglobin Concent 32.6g/dl (32.0-37.0) Red Cell Distribution Width 15.6% (11.5-14.5) Platelet Count 37497^3/UL (140-415) Mean Platelet Volume 10.4fl (7.4-10.4) Neutrophils % 67.7% (39.0-77.0) Lymphocytes % 17.1% (15.0-51.0) Monocytes % 12.3% (0.0-11.0) Eosinophils % 2.2% (0.0-7.0) Basophils % 0.4% (0.0-2.0) Nucleated Red Blood Cells % 0.0/100WBC (0.0-0.0) Neutrophils # 6.510^3/ul (1.6-7.5) Lymphocytes # 1.610^3/ul (0.8-2.9) Monocytes # 1.210^3/ul (0.3-0.9) Eosinophils # 0.210^3/ul (0.0-0.5) Basophils # 0.010^3/ul (0.0-0.1) Nucleated Red Blood Cells # 0.010^3/ul (0.0-0.0) Sodium Level 140mmol/L (135-144) Potassium Level 4.4mmol/L (3.5-5.1) Chloride Level 98mmol/L (97-110) Carbon Dioxide Level 31mmol/L (21-31) Anion Gap 15 (8-16) Blood Urea Nitrogen 25mg/dl (7-20) Creatinine 0.90mg/dl (0.61-1.24) Glucose Level 99mg/dl (70-220) Calcium Level 9.1mg/dl (8.4-10.2) ARNOLD TAM MD May 07, 2017 23:27
[2017-05-08 02:38] VITALS: BP 109/53; RESP 18
[2017-05-08] MEDS ORDERED: LEVOFLOXACIN 750 MG TABLET PO SCH (06:00)
[2017-05-08 08:06] VITALS: BP 149/66; RESP 18
[2017-05-08] MEDS: NICOTINE (21 MG/24 HR) PATCH TRANSDERM SCH (08:46)
[2017-05-08] MEDS: SALMETEROL/FLUTICASONE 250/50 INHA INH SCH (08:46)
[2017-05-08] MEDS: BENAZEPRIL 10 MG TAB PO SCH (08:47)
[2017-05-08] MEDS: PAROXETINE 20 MG TAB PO SCH (08:47)
[2017-05-08] MEDS: LUBIPROSTONE 24 MCG CAP PO SCH (08:47)
[2017-05-08] MEDS: DIAZEPAM 5 MG TAB PO SCH (08:47)
[2017-05-08] MEDS: FERROUS SULFATE (EC) 325 MG TAB PO SCH (08:47)
[2017-05-08] MEDS: ASPIRIN (EC) 81 MG TAB PO SCH (08:48)
[2017-05-08] MEDS: MAGNESIUM OXIDE 400 MG TAB PO SCH (08:48)
== END 2017-05-08 14:00 | DRG 190 ==
LOC: E/R 11:37 → MS2 14:55 → OBSVTOIN 05-03 15:10
PROVIDERS: ADMIT Internal Medicine; ATTEND Internal Medicine
PROC: 4A043R1 Measurement of Venous Saturation, Peripheral, Percutaneous Approach (ICD-10-PCS; principal; 2017-05-01)
PROC: 3E0F73Z Introduction of Anti-inflammatory into Respiratory Tract, Via Natural or Artificial Opening (ICD-10-PCS; 2017-05-01)
PROC: 3E0F7GC Introduction of Other Therapeutic Substance into Respiratory Tract, Via Natural or Artificial Opening (ICD-10-PCS; 2017-05-01)
DX: J44.0 Chronic obstructive pulmonary disease with (acute) lower respiratory infection (principal); J18.9 Pneumonia, unspecified organism; Z99.81 Dependence on supplemental oxygen; I11.0 Hypertensive heart disease with heart failure; F03.90 Unspecified dementia, unspecified severity, without behavioral disturbance, psychotic disturbance, mood disturbance, and anxiety; I50.9 Heart failure, unspecified; J44.1 Chronic obstructive pulmonary disease with (acute) exacerbation; N28.9 Disorder of kidney and ureter, unspecified; F17.200 Nicotine dependence, unspecified, uncomplicated; D64.9 Anemia, unspecified; E86.0 Dehydration; E78.00 Pure hypercholesterolemia, unspecified; F32.9 Major depressive disorder, single episode, unspecified; I25.10 Atherosclerotic heart disease of native coronary artery without angina pectoris; I25.2 Old myocardial infarction; M19.90 Unspecified osteoarthritis, unspecified site; N40.0 Benign prostatic hyperplasia without lower urinary tract symptoms; R53.81 Other malaise; Z95.5 Presence of coronary angioplasty implant and graft; Z74.09 Other reduced mobility; Z79.82 Long term (current) use of aspirin
CPT/HCPCS: 36415; 71010; 80048; 80053; 82803; 82962; 83605; 83735; 84484; 85025; 85610; 85730; 87040; 93005; 94640; 94664; 96374; 96375; 97162; G0378; J1956; J2920; J2930; J7030; J7040

== ENCOUNTER 2017-08-03 04:42 | Inpatient (IN) | payer MEDICARE, BC ==
[~2017-08-03] VITALS: Ht 172.7 cm; Wt 97.5 kg
[~2017-08-03 04:42] MED LIST changes: -ACET-2047 PO; +ALBU18HF INHALATION; +ATOR20TA38 PO; -BISA-57 PO; -CLOB15OI15 TOP; +LUBI24CA7 PO; -Nicotine (14 Mg/24 Hr) TRANSDERM; -OMEG-135 PO; -TIOT18CA INH; +TIOT18CA INHALATION; -TIZA4TAB PO; -VIT1TABL46 PO
[2017-08-03 04:56] VITALS: Ht 172.7 cm; Wt 97.5 kg
[2017-08-03 05:12] LABS: URINE BLOOD (Dip) POC Negative (NEGATIVE)
[2017-08-03] MEDS ORDERED: ALBUTEROL 0.083% (NEB) 2.5 MG/3 ML AMP INH STA (05:15)
[2017-08-03] MEDS ORDERED: IPRATROPIUM (NEB) 0.5 MG/2.5 ML AMP INH STA (05:15)
--- NOTE | 2017-08-03 05:24 | ERD ---
ER Documentation Chief Complaint Date/Time DATE: 08/03/17 TIME: 05:19 Chief Complaint mid abd pain x 1 month HPI Patient is an 81-year-old male who presents with gradual onset, constant, waxing and waning mid abdominal pain for 1 month associated with a periumbilical incisional hernia. He states that he has had a nonproductive cough and shortness of breath for the last 3-4 days and that he has increased pain at the hernia when he coughs. He denies vomiting. He reports having constipation with his last stool to a half days ago. He denies obstipation. He states that the pain around his hernia has been worse for the last 1-2 days. He saw his PMD 2 days ago and was prescribed an antibiotic. He denies having fever. The patient has history of COPD and continues to smoke. He denies chest pain. He denies history of CHF; However review of prior notes shows that the patient has history of CHF. ROS All systems reviewed and are negative except as per history of present illness. Medications Home Meds Reported Medications Sulfamethoxazole/Trimethoprim* (Bactrim Ds* Tablet) 1 Each Tablet, 1 TAB PO BID , TAB 08/03/17 Tiotropium [place]* (Spiriva*) 18 Mcg Cap.w.dev, 1 CAP INHALATION DAILY, #30 CAP 05/01/17 Albuterol Sulfate* (Ventolin HFA*) 18 Gm Hfa.aer.ad, 2 PUFF INHALATION Q6H Y for SHORTNESS OF BREATH, #1 INHALER 05/01/17 Lubiprostone* (Amitiza*) 24 Mcg Capsule, 24 MCG PO BID, #60 CAP 05/01/17 Atorvastatin Calcium* (Atorvastatin Calcium*) 20 Mg Tablet, 20 MG PO QHS, #30 TAB 05/01/17 Diazepam* (Diazepam*) 5 Mg Tablet, 5 MG PO BID, TAB 07/19/16 Carvedilol* (Carvedilol*) 3.125 Mg Tablet, 3.125 MG PO DAILY, #60 TAB 07/19/16 Magnesium Oxide* (Mag-Oxide*) 400 Mg Tablet, 400 MG PO BID, TAB 07/19/16 Montelukast Sodium* (Montelukast Sodium*) 10 Mg Tablet, 10 MG PO QHS, #30 TAB 07/19/16 Paroxetine Hcl* (Paxil*) 40 Mg Tablet, 40 MG PO DAILY, TAB 07/19/16 Ramipril (Ramipril) 2.5 Mg Capsule, 2.5 MG PO DAILY, CAP 07/19/16 Aspirin (Low Dose Aspirin) 81 Mg Tablet.dr, 81 MG PO DAILY, #30 TAB 07/19/16 Salmeterol Xinaf/Fluticasone* (Advair*) 250-50 Diskus Inhaler, 1 INH INH BID, INH 09/27/14 Ferrous Sulfate* (Ferrous Sulfate*) 325 Mg Tabec, 325 MG PO BID, TAB 09/27/14 Allergies Allergies: Coded Allergies: No Known Allergy (Unverified , 08/03/17) PMhx/Soc Past medical history: Coronary artery disease, cardiac arrest, hypertension, hyperlipidemia, carotid artery stenosis, COPD Past surgical history: Colon resection, hernia repair, small bowel obstruction, cardiac stent Social history: Occasional alcohol, daily tobacco History of Surgery: Yes (hernia repair,stent placement) Anesthesia Reaction: No Hx Neurological Disorder: No Hx Respiratory Disorders: Yes (copd) Hx Cardiac Disorders: Yes ([place] stents x 4, cardiac arrest ) Hx Psychiatric Problems: No Hx Miscellaneous Medical Probl: Yes (L THR, COPD, CAD stent placement x 4, HTN , depression/anxiety) Hx Alcohol Use: No Hx Substance Use: No Hx Tobacco Use: Yes FmHx Family History: No coronary disease, No diabetes Physical Exam Vitals Vital Signs Date Time Temp Pulse Resp B/P Pulse Ox O2 Delivery O2 Flow Rate FiO2 08/03/17 05:30 80 21 91 21 08/03/17 05:22 81 20 149/52 97 Room Air 08/03/17 04:56 98.2 82 20 128/60 97 Physical Exam Const: Alert, no acute distress Head: Atraumatic Eyes: Normal Conjunctiva, No pallor, no icterus ENT: Normal External Ears, Nose and Mouth. Mucous membranes moist Neck: Full range of motion..~ No meningismus. No JVD Resp: Clear to auscultation bilaterally, Diffuse wheezes, prolonged expiration, bibasilar rales Cardio: Regular rate and rhythm, no murmurs Abd: Soft, non tender, non distended. Obese. Periumbilical incisional hernia is soft and easily reducible. No overlying skin change. Skin: No petechiae or rashes Back: No midline or flank tenderness Ext: No cyanosis, 1+ pitting edema to upper shins bilaterally, symmetric Neur: Awake and alert, Cranial nerves II through XII intact bilaterally, strength and sensation full in 4 extremities. Psych: Normal Mood and Affect Result Diagram: 08/03/17 0535 08/03/17 0535 Results 24 hrs Laboratory Tests Test 08/03/17 05:20 08/03/17 05:35 Bedside Urine pH (LAB) 5.5 Bedside Urine Protein (LAB) 1+ Bedside Urine Glucose (UA) Negative Bedside Urine Ketones (LAB) Negative Bedside Urine Blood Negative Bedside Urine Nitrite (LAB) Negative Bedside Urine Leukocyte Esterase (L Negative White Blood Count 14.410^3/ul Red Blood Count 3.8310^6/ul Hemoglobin 11.4g/dl Hematocrit 34.7% Mean Corpuscular Volume 90.6fl Mean Corpuscular Hemoglobin 29.8pg Mean Corpuscular Hemoglobin Concent 32.9g/dl Red Cell Distribution Width 15.9% Platelet Count 35608^3/UL Mean Platelet Volume 10.3fl Neutrophils % 76.8% Lymphocytes % 11.5% Monocytes % 11.0% Eosinophils % 0.1% Basophils % 0.1% Nucleated Red Blood Cells % 0.0/100WBC Neutrophils # 11.110^3/ul Lymphocytes # 1.710^3/ul Monocytes # 1.610^3/ul Eosinophils # 0.010^3/ul Basophils # 0.010^3/ul Nucleated Red Blood Cells # 0.010^3/ul Prothrombin Time 12.0Sec Prothrombin Time Ratio 0.9 INR International Normalized Ratio 0.89 Activated Partial Thromboplast Time 24.5Sec Sodium Level 140mmol/L Potassium Level 4.5mmol/L Chloride Level 104mmol/L Carbon Dioxide Level 29mmol/L Anion Gap 12 Blood Urea Nitrogen 39mg/dl Creatinine 1.52mg/dl Glucose Level 107mg/dl Calcium Level 9.6mg/dl Total Bilirubin 0.0mg/dl Direct Bilirubin 0.00mg/dl Indirect Bilirubin 0.0mg/dl Aspartate Amino Transf (AST/SGOT) 21IU/L Alanine Aminotransferase (ALT/SGPT) 31IU/L Alkaline Phosphatase 120IU/L Troponin I 0.026ng/ml B-Type Natriuretic Peptide 763PG/ML Total Protein 7.8g/dl Albumin 4.0g/dl Globulin 3.80g/dl Albumin/Globulin Ratio 1.05 Current Medications Medications (Trade) Dose Ordered Sig/Rolando Route PRN Reason Start Time Stop Time Status Last Admin Dose Admin Albuterol (Proventil 0.083% (Neb)) 5 mg ONCE STAT INH 08/03/17 05:15 08/03/17 05:17 DC 08/03/17 05:31 Ipratropium [place] (Atrovent 0.02% (Neb)) 0.5 mg ONCE STAT INH 08/03/17 05:15 08/03/17 05:17 DC 08/03/17 05:31 Furosemide (Lasix) 20 mg ONCE ONCE IV 08/03/17 07:00 08/03/17 07:01 Methylprednisolone Sodium Succinate (Solu-Medrol) 125 mg ONCE ONCE IV 08/03/17 07:00 08/03/17 07:01 Procedures/MDM EKG read by me: Time 552, rate 83 Rhythm: Normal sinus Gilberts: Normal Intervals: Borderline QRS interval ST-T waves: No ischemic changes, T-wave flattening Ectopy: Occasional PVCs Q-waves: No Q waves, poor R-wave progression Impression: No signs of ischemia, occasional PVCs MDM: Patient is an 81-year-old male with history of CHF and COPD who presents to the ER with cough and shortness of breath. He is found to have wheezing, prolonged expiration, and bibasilar rales. His BNP is over 700, but prior BNPs have been 3986-3539. The patient does have a slight elevation in his creatinine from baseline. I believe that he requires he was given a nebulizer treatment and had mild improvement, but still has significant wheezing and prolonged expiration. His resting O2 sat on room air is 91-92%. I will give him a small dose of Lasix, a dose of Solu-Medrol, and another nebulizer treatment. I will check an ABG. Given his advanced age and multiple comorbidities, I will admit him for further treatment as an inpatient as well as judicious diuresis in the setting of mild renal impairment. The patient does have an abdominal wall hernia without signs of incarceration or obstruction. He does appear to have mild constipation on x-ray. Radiologist interpretation of x-rays is pending. Departure Diagnosis: Primary Impression: COPD exacerbation Additional Impressions: CHF exacerbation Congestive heart failure type: unspecified congestive heart failure type Qualified Code: I50.9 - Acute on chronic congestive heart failure, unspecified congestive heart failure type Acute renal impairment Ventral hernia Obstruction and gangrene presence: without obstruction or gangrene Qualified Code: K43.9 - Ventral hernia without obstruction or gangrene Constipation Constipation type: unspecified constipation type Qualified Code: K59.00 - Constipation, unspecified constipation type Condition: ALTAGRACIA Garcia MD Aug 03, 2017 05:24
[2017-08-03 05:59] LABS: ABNORMAL IP MESSAGE 1; BASOPHILS % 0.1 % (0.0-2.0); EOSINOPHILS % 0.1 % (0.0-7.0); HEMATOCRIT 34.7 % (42.0-52.0); HEMOGLOBIN 11.4 g/dl (14.0-18.0); LYMPHOCYTES # 1.7 10^3/ul (0.8-2.9); LYMPHOCYTES % 11.5 % (15.0-51.0); MEAN CORPUSCULAR HEMOGLOBIN 29.8 pg (29.0-33.0); MEAN CORPUSCULAR HGB CONC 32.9 g/dl (32.0-37.0); MEAN CORPUSCULAR VOLUME 90.6 fl (82.0-101.0); MEAN PLATELET VOLUME 10.3 fl (7.4-10.4); MONOCYTE # 1.6 10^3/ul (0.3-0.9); NEUTROPHIL # 11.1 10^3/ul (1.6-7.5); NEUTROPHILS % 76.8 % (39.0-77.0); PLATELET COUNT 232 10^3/UL (140-415); POSITIVE DIFF @See below; RED BLOOD COUNT 3.83 10^6/ul (4.70-6.10); RED CELL DISTRIBUTION WIDTH 15.9 % (11.5-14.5); WHITE BLOOD COUNT 14.4 10^3/ul (4.8-10.8)
[2017-08-03] MEDS ORDERED: SULF1TAB31 PO (06:19)
[2017-08-03 06:23] LABS: INR 0.89; PT RATIO 0.9
[2017-08-03 06:24] LABS: PARTIAL THROMBOPLASTIN TIME 24.5 Sec (25.0-35.0)
[2017-08-03 06:33] LABS: ALBUMIN/GLOBULIN RATIO 1.05; CALCIUM 9.6 mg/dl (8.4-10.2); CREATININE 1.52 mg/dl (0.61-1.24); POTASSIUM 4.5 mmol/L (3.5-5.1); TOTAL PROTEIN 7.8 g/dl (6.1-8.1)
[2017-08-03 06:45] LABS: TROPONIN-I 0.026 ng/ml (0.00-0.12)
[2017-08-03] MEDS ORDERED: FUROSEMIDE 20 MG INJ IV ONE (07:00)
[2017-08-03] MEDS ORDERED: METHYLPREDNISOLONE 125 MG INJ IV ONE (07:00)
--- NOTE | 2017-08-03 07:01 | RADRPT ---
PROCEDURE: XR Abdomen. CLINICAL INDICATION: Constipation TECHNIQUE: Upright and supine abdominal x-rays were obtained. COMPARISON: None. FINDINGS: The study is somewhat limited by breathing motion. Moderate right-sided stool is seen. No gross manisha l obstruction or free air. Left hip hardware is seen. Degenerative change of the thoracic and lumbar spine. Vascular calcification. IMPRESSION: Moderate right-sided stool. RPTAT: HLBE Brenda Cain Physician Date Time Electronically viewed and signed by Brenda Cain Physician on 08/03/2017 07:01 LE/
[2017-08-03] MEDS ORDERED: ALBUTEROL 0.083% (NEB) 2.5 MG/3 ML AMP HHN STA (07:02)
--- NOTE | 2017-08-03 07:07 | RADRPT ---
PROCEDURE: XR Chest. CLINICAL INDICATION: Abdominal pain. Constipation. TECHNIQUE: Portable single view of the chest COMPARISON: 07/25/2016 FINDINGS: Again seen is mild cardiomegaly and bibasilar subsegmental atelectasis. No definite acute infiltrate , pleural effusion, or overt congestive heart failure. Aortic calcification. Right central line has been removed. IMPRESSION: Removal of right central line. Otherwise stable exam. RPTAT: HLBE Brenda Cain Physician Date Time Electronically viewed and signed by Brenda Cain Physician on 08/03/2017 07:07 LE/
[2017-08-03] MEDS ORDERED: ACETAMINOPHEN 325 MG TAB PO PRN (08:00)
[2017-08-03] MEDS ORDERED: ONDANSETRON 4 MG INJ IV PRN (08:00)
[2017-08-03] MEDS ORDERED: ALBUTEROL/IPRATROPIUM (NEB) 3 ML AMP HHN STA (12:46)
[2017-08-03] MEDS ORDERED: LEVOFLOXACIN 500MG/D5W (PMX) 100 ML IVPB ONE (13:00)
[2017-08-03 13:06] LABS: AADO2 Arterial 76.8 mmHg (7.0-24.0); Arterial Base Excess 2.1 mmol/L (-3.0-3); Arterial COHb 0.3 % (0.0-3.0); Arterial Fraction of Oxyhgb 89.9 % (93.0-99.0); Arterial HCO3 27.7 mmol/L (22.0-26.0); Arterial MetHb 0.1 % (0.0-1.5); Arterial Total Hemglobin 12.9 g/dl (12.0-18.0); MODE NASAL CANNULA
[2017-08-03 15:30] VITALS: TEMP 98.3
[2017-08-03] MEDS ORDERED: PRED20TA PO (18:00)
[2017-08-03] MEDS ORDERED: DIAZ5TAB4 PO (19:06)
[2017-08-03 20:25] VITALS: PULSE 88
[2017-08-03] MEDS: MAGNESIUM CITRATE 300 ML BTL PO ONE (20:30)
--- NOTE | 2017-08-03 20:50 | HP ---
Date/Time of Note Date/Time of Note DATE: 08/03/17 TIME: 20:31 Assessment/Plan VTE Prophylaxis VTE Prophylaxis Intervention: ambulation Lines/Catheters IV Catheter Type (from [facility]): Saline Lock Assessment/Plan Problems: (1) COPD exacerbation Status: Acute Comment: Start IV solumedrol, levaquin for possible bronchitis, and duoneb HHN (2) CHF exacerbation Status: Acute Comment: Check serial troponins , recheck 2D Echo. Follow cxr and pro-BNP after hydration. Qualifiers: Congestive heart failure type: unspecified congestive heart failure type Qualified Code: I50.9 - Acute on chronic congestive heart failure, unspecified congestive heart failure type (3) Acute renal impairment Status: Acute Comment: Start gentle hydration. (4) Ventral hernia Status: Acute Comment: recurring after recent hernia repair and lysis of adhesion and now having abdominal pain. Will check abd and pelvic CT scan although current exam does not support SBO or acute abdomen. Qualifiers: Obstruction and gangrene presence: without obstruction or gangrene Qualified Code: K43.9 - Ventral hernia without obstruction or gangrene (5) Constipation Status: Chronic Comment: Maybe the cause of patient's abdominal pain. Use magnesium citrate today and add Colace to amitiza for chronic use. Qualifiers: Constipation type: unspecified constipation type Qualified Code: K59.00 - Constipation, unspecified constipation type HPI/ROS Admit Date/Time Admit Date/Time Aug 03, 2017 at 07:58 Hx of Present Illness Patient came to the Emergency Room for abdominal pain but was noted to be in respiratory distress with wheezing and hypoxia and is admitted for copd exacerbation, possible chf. ROS Constitutional: other, poor po, No chills, No diaphoresis, No disoriented, No fatigue, No febrile, No nausea , No weight change Eyes: no complaints, visual change, No discharge, No pain, No redness ENT: bleeding, discharge, dysphagia, no complaints, No congestion, No pain, No sore throat Respiratory: cough, shortness of breath, wheezing Cardiovascular: No chest pain, No edema, No lightheadedness, No orthopenea, No palpitations, No paroxysmal nocturnal dyspnea Gastrointestinal: constipation, pain Genitourinary: No bleeding, No dysuria, No hematuria, No no complaints Musculoskeletal: back pain Skin: no complaints Neurologic: no complaints Psychological: nl mood/affect, no complaints PMH/Family/Social Past Medical History COPD Anemia Alcoholic gastritis Colon cancer Small bowel obstruction from adhesions and ventral hernia Medical History: congestive heart failure, coronary artery disease, GI bleed, high cholesterol, hypertension Past Surgical History s/p lysis of adhesions, s/p ventral hernia repair. Past Surgical Hx: angioplasty, bowel resection Family History Significant Family History: no pertinent family hx Social History episodic binge drinking Smoking Status: Current every day smoker Drug Use: none Exam/Review of Systems Vital Signs Vitals Vital Signs Date Time Temp Pulse Resp B/P Pulse Ox O2 Delivery O2 Flow Rate FiO2 08/03/17 20:25 88 08/03/17 17:00 98.3 20 97/47 97 Room Air 08/03/17 10:42 2.0 08/03/17 10:27 21 Exam Constitutional: alert, oriented Psych: nl mood/affect Head: atraumatic, normocephalic Eyes: nl conjunctiva, nl sclera ENMT: mucosa pink and moist, nl nasal mucosa & septum Neck: non-tender, supple Respiratory: crackles/rales, diminished breath sounds, wheezing Cardiovascular: nl pulses, regular rate and rhythm Gastrointestinal: bowel sounds, non-tender, soft, surgical scars, No distended, No hepatomegaly, No rebound or guarding Genitourinary - Male: nl penis, nl scrotum Musculoskeletal: nl extremities to inspection, nl gait and stance Neurological: [employer] II-XII intact, nl mental status, nl speech Skin: nl turgor Lymph: nl lymph nodes Labs Result Diagram: 08/03/17 0535 08/03/17 0535 BREEZY FRIAS MD Aug 03, 2017 20:41
[2017-08-03] MEDS ORDERED: BARIUM SULF 2% 450 ML BTL (BERRY SMOOTHIE) PO ONE ×2 (21:00→22:00)
[2017-08-03 21:11] VITALS: BP 124/59; RESP 18
[2017-08-03] MEDS: DIAZEPAM 5 MG TAB PO SCH (21:39)
[2017-08-03] MEDS: ATORVASTATIN 20 MG TAB PO SCH (21:39)
[2017-08-03] MEDS: DOCUSATE SODIUM 100 MG CAP PO SCH (21:40)
[2017-08-03] MEDS: MONTELUKAST 10 MG TAB PO SCH (21:42)
[2017-08-03] MEDS: MAGNESIUM OXIDE 400 MG TAB PO SCH (21:42)
[2017-08-03] MEDS: D5W-0.45 NACL + KCL 20 MEQ 1,000 ML IV SCH (21:55)
[2017-08-03] MEDS: ALBUTEROL/IPRATROPIUM (NEB) 3 ML AMP HHN SCH (22:00)
[2017-08-03] MEDS: LUBIPROSTONE 24 MCG CAP PO SCH (22:39)
[2017-08-04] VITALS (12 sets, daily range): BP systolic 98–132; BP diastolic 57–66; PULSE 68–79; RESP 18–20
[2017-08-04] MEDS: MAGNESIUM CITRATE 300 ML BTL PO ONE (05:51)
[2017-08-04 07:11] LABS: CALCIUM 9.4 mg/dl (8.4-10.2); CREATININE 1.28 mg/dl (0.61-1.24); POTASSIUM 4.6 mmol/L (3.5-5.1)
[2017-08-04] MEDS: ALBUTEROL/IPRATROPIUM (NEB) 3 ML AMP HHN SCH ×3 (08:02→20:01)
[2017-08-04] MEDS: DIAZEPAM 5 MG TAB PO SCH ×2 (08:43→22:00)
[2017-08-04] MEDS: LUBIPROSTONE 24 MCG CAP PO SCH ×2 (08:43→22:00)
[2017-08-04] MEDS: MAGNESIUM OXIDE 400 MG TAB PO SCH ×2 (08:44→21:59)
[2017-08-04] MEDS: METHYLPREDNISOLONE 125 MG INJ IV SCH (08:44)
[2017-08-04] MEDS: PAROXETINE 20 MG TAB PO SCH (08:44)
[2017-08-04] MEDS: ASPIRIN (EC) 81 MG TAB PO SCH (08:44)
[2017-08-04] MEDS: D5W-0.45 NACL + KCL 20 MEQ 1,000 ML IV SCH (12:25)
--- NOTE | 2017-08-04 13:01 | PN ---
Date/Time of Note Date/Time of Note DATE: 08/04/17 TIME: 12:50 Assessment/Plan VTE Prophylaxis VTE Prophylaxis Intervention: ambulation Lines/Catheters IV Catheter Type (from Nrsg): Peripheral IV Assessment/Plan Problems: (1) COPD exacerbation Status: Acute Comment: Continue steroid, antibiotics and duoneb nebulizer, add mucomyst and mucinex for expectoration, (2) CHF exacerbation Status: Acute Comment: Pro-BNP increasing with hydration , will galo cxr and 2d-echo and consult cardiology. Hold lasix for now due to increased bun/creatinine. Qualifiers: Congestive heart failure type: unspecified congestive heart failure type Qualified Code: I50.9 - Acute on chronic congestive heart failure, unspecified congestive heart failure type (3) Acute renal impairment Status: Acute Comment: improving with gentle hydration. Decrease IVF rate today. (4) Constipation Status: Chronic Comment: improved , will resume miralax and change amitiza to linzess, Qualifiers: Constipation type: unspecified constipation type Qualified Code: K59.00 - Constipation, unspecified constipation type Subjective 24 Hr Interval Summary Free Text/Dictation No more abd pain this am . Had multiple BM's after magnesium citrate. Still has mild shortness of breath but better. Exam/Review of Systems Vital Signs Vitals Vital Signs Date Time Temp Pulse Resp B/P Pulse Ox O2 Delivery O2 Flow Rate FiO2 08/04/17 12:00 71 08/04/17 11:48 98.1 18 126/57 92 08/04/17 08:06 2.0 08/04/17 08:03 21 08/03/17 17:00 Room Air Intake and Output 08/03/17 08/03/17 08/04/17 15:00 23:00 07:00 Intake Total 1460 ml Output Total 975 ml Balance 485 ml Exam Constitutional: alert, oriented Psych: nl mood/affect Head: atraumatic, normocephalic Eyes: nl conjunctiva, nl sclera ENMT: mucosa pink and moist, nl external ears & nose Neck: non-tender, supple Respiratory: crackles/rales, diminished breath sounds, wheezing Cardiovascular: bruits, regular rate and rhythm Gastrointestinal: non-tender, soft Musculoskeletal: nl extremities to inspection, nl gait and stance Results Result Diagram: 08/03/17 0535 08/04/17 0666 Results 24 hrs Laboratory Tests Test 08/04/17 06:33 Sodium Level 141 Potassium Level 4.6 Chloride Level 102 Carbon Dioxide Level 31 Anion Gap 13 Blood Urea Nitrogen 46 H Creatinine 1.28 H Glucose Level 108 Calcium Level 9.4 B-Type Natriuretic Peptide 1340 H Medications Medications Current Medications Aspirin (Halfprin) 81 mg DAILY PO Last administered on 08/04/17 08:44; Admin Dose 81 MG; Start 08/04/17 at 09:00 Atorvastatin Calcium (Lipitor) 20 mg QHS PO Last administered on 08/03/17 21: 39; Admin Dose 20 MG; Start 08/03/17 at 21:00 Diazepam (Valium) 5 mg BID PO Last administered on 08/04/17 08:43; Admin Dose 5 MG; Start 08/03/17 at 21:00 Lubiprostone (Amitiza) 24 mcg BID PO Last administered on 08/04/17 08:43; Admin Dose 24 MCG; Start 08/03/17 at 21:00 Magnesium Oxide (Mag-Ox 400) 400 mg BID PO Last administered on 08/04/17 08:44 ; Admin Dose 400 MG; Start 08/03/17 at 21:00 Montelukast Sodium (Singulair) 10 mg QHS PO Last administered on 08/03/17 21: 42; Admin Dose 10 MG; Start 08/03/17 at 21:00 Paroxetine HCl 40 mg 40 mg DAILY PO Last administered on 08/04/17 08:44; Admin Dose 40 MG; Start 08/04/17 at 09:00 Levofloxacin/ Dextrose (Levaquin 500mg/ D5W 100 ml (Pmx)) 100 ml @ 100 mls/hr Q48H IVPB ; Start 08/05/17 at 15:00 Methylprednisolone Sodium Succinate (Solu-Medrol) 80 mg DAILY IV Last administered on 08/04/17 08:44; Admin Dose 80 MG; Start 08/04/17 at 09:00 Docusate Sodium (Colace) 200 mg HS PO Last administered on 08/03/17 21:40; Admin Dose 200 MG; Start 08/03/17 at 21:00 Albuterol/ Ipratropium 3 ml 3 ml Q8 HHN Last administered on 08/04/17 08:02; Admin Dose 3 ML; Start 08/03/17 at 22:00 Potassium Chloride/Dextrose/ Sod Cl (D5-1/2ns + KCl 20 Meq) 1,000 ml @ 70 mls/ hr [id number] IV Last administered on 08/04/17t 12:25; Admin Dose 70 MLS/HR; Start 08/03/17 at 21:30 BREEZY FRIAS MD Aug 04, 2017 13:00
[2017-08-04] MEDS: ACETYLCYSTEINE 20% 4 ML VIAL NEB SCH ×2 (13:25→20:01)
--- NOTE | 2017-08-04 14:30 | RADRPT ---
PROCEDURE: CT abdomen and pelvis without contrast. CLINICAL INDICATION: Small bowel obstruction. TECHNIQUE: CT scan of the abdomen and pelvis without contrast was performed and is reconstructed a t 5 mm contiguous axial intervals from the dome of the diaphragm to the inferior pubic rami.. The p atient was scanned with oral intravenous contrast. Sagittal and coronal reformatted images were obt ained from the axial source images. The calculated radiation dose measures 1207 mGy centimeters. The CTDI measures 20 mGy. Individualized dose optimization technique was used for the performance of this exam. This included 1. Automated exposure control. 2. Adjustment of the mA and / or kV according to the patient's size. 3. Use of iterative reconstructed technique. COMPARISON: CT abdomen pelvis July 19, 2016 FINDINGS: The lung bases are clear of any infiltrate . There is pleural-based atelectasis on the medial aspec t of the left lung base. This is unchanged when compared with the prior study. A 3 mm noncalcified w ell-demarcated pleural-based micro nodule is seen deep in the right costophrenic recess.. There are coronary artery calcifications. The liver is of normal size, contour and attenuation with no mass or ductal dilatation. No gallston es are visualized. No splenic, adrenal or pancreatic abnormalities present. Kidneys are of normal size and contour. No hydronephrosis, calculus or solid masses seen. 1 cm cor tical cyst is present in the lower pole of the right kidney. Ureters are of normal course and calib er with no stone. No bladder mass or stone is present. Prostate and seminal vesicles appear normal. There is no aneurysm. There are vascular calcifications. No adenopathy is present. No bowel mass or obstruction is present. The appendix is normal. No phlegmon, ascites or pneumop eritoneum is visualized. There is a midline ventral wall upper pelvic hernia containing nonobstructe d small bowel. Noted is a left hip prosthesis. Senescent degenerative changes are seen in the spine with mild rotar y levoscoliosis. Chronic superior endplate compression fracture is seen in L2. IMPRESSION: No evidence of urolithiasis, obstructive uropathy, diverticulitis or appendicitis. No evidence of bowel obstruction. Ventral wall pelvic hernia containing nonobstructed small bowel. Right basilar atelectasis with tiny noncalcified granuloma. Right renal cyst. Vascular calcifications. Status post left hip replacement. Chronic superior endplate compression fracture L2. Senescent degen erative changes spine. .Rubin Tamez MD, Date Time Electronically viewed and signed by .Rubin Tamez MD, on 08/04/2017 14:30 .A/
--- NOTE | 2017-08-04 15:03 | CONS ---
Date/Time of Note Date/Time of Note DATE: 08/04/17 TIME: 15:01 Assessment/Plan Assessment/Plan Additional Assessment/Plan Impression # Abdominal pain, hx/o SBO in the past # COPD with mild exacerbation with mild wheezing on exam # CHF hx with mildly decreased EF. Pt is non-compliant with his meds. # HTN # Obesity >> change BB to metoprolol given wheezing >> eventual ARB/ACEi >> statin >> ASA >> echo >> avoid fluid overload Consultation Date/Type/Reason Admit Date/Time Aug 03, 2017 at 07:58 Type of Consultation: Cardiology Hx of Present Illness This is a pleasant 81 yo man who presents with abdominal pain hx and was found to be in COPD exacerbation and possible CHF exacerbation. He does have a hx/o mildly decreased EF on studies performed last year however he is not aware of the details of his heart disease. He states that he is not compliant with his heart meds at home. he denies any CP or palpitations. He does have some wheezing. He has not had any palpitations or dizziness. Eyes: no complaints, visual change, No discharge, No pain, No redness ENT: bleeding, discharge, dysphagia, no complaints, No congestion, No pain, No sore throat Respiratory: cough, shortness of breath, wheezing Cardiovascular: No chest pain, No edema, No lightheadedness, No orthopenea, No palpitations, No paroxysmal nocturnal dyspnea Gastrointestinal: constipation, pain Genitourinary: No bleeding, No dysuria, No hematuria, No no complaints Musculoskeletal: back pain Skin: no complaints Neurologic: no complaints Psychological: nl mood/affect Past Medical History Medical History: congestive heart failure, coronary artery disease, GI bleed, high cholesterol, hypertension Past Surgical History Past Surgical Hx: angioplasty, bowel resection Social History Smoking Status: Current every day smoker Drug Use: none Exam/Review of Systems Vital Signs Vitals Vital Signs Date Time Temp Pulse Resp B/P Pulse Ox O2 Delivery O2 Flow Rate FiO2 08/04/17 13:26 77 20 89 21 08/04/17 11:48 98.1 126/57 08/04/17 08:06 2.0 08/03/17 17:00 Room Air Intake and Output 08/03/17 08/03/17 08/04/17 15:00 23:00 07:00 Intake Total 1460 ml Output Total 975 ml Balance 485 ml Exam Constitutional: alert, obese, oriented Psych: no complaints Head: normocephalic Eyes: EOMI, nl conjunctiva ENMT: nl external ears & nose, nl lips & teeth Neck: jvd (8) Respiratory: clear to auscultation, wheezing Cardiovascular: nl pulses, regular rate and rhythm, No S3 Gastrointestinal: soft, tender Musculoskeletal: nl extremities to inspection Extremities: normal pulses Neurological: DEFECT CUTTER II-XII intact Results Result Diagram: 08/03/17 0535 08/04/17 0633 Results 24 hrs Laboratory Tests Test 08/04/17 06:33 Sodium Level 141 Potassium Level 4.6 Chloride Level 102 Carbon Dioxide Level 31 Anion Gap 13 Blood Urea Nitrogen 46 H Creatinine 1.28 H Glucose Level 108 Calcium Level 9.4 B-Type Natriuretic Peptide 1340 H Medications Medications Current Medications Aspirin (Halfprin) 81 mg DAILY PO Last administered on 08/04/17 08:44; Admin Dose 81 MG; Start 08/04/17 at 09:00 Atorvastatin Calcium (Lipitor) 20 mg QHS PO Last administered on 08/03/17 21: 39; Admin Dose 20 MG; Start 08/03/17 at 21:00 Diazepam (Valium) 5 mg BID PO Last administered on 08/04/17 08:43; Admin Dose 5 MG; Start 08/03/17 at 21:00 Lubiprostone (Amitiza) 24 mcg BID PO Last administered on 08/04/17 08:43; Admin Dose 24 MCG; Start 08/03/17 at 21:00 Magnesium Oxide (Mag-Ox 400) 400 mg BID PO Last administered on 08/04/17 08:44 ; Admin Dose 400 MG; Start 08/03/17 at 21:00 Montelukast Sodium (Singulair) 10 mg QHS PO Last administered on 08/03/17 21: 42; Admin Dose 10 MG; Start 08/03/17 at 21:00 Paroxetine HCl 40 mg 40 mg DAILY PO Last administered on 08/04/17 08:44; Admin Dose 40 MG; Start 08/04/17 at 09:00 Levofloxacin/ Dextrose (Levaquin 500mg/ D5W 100 ml (Pmx)) 100 ml @ 100 mls/hr Q48H IVPB ; Start 08/05/17 at 15:00 Methylprednisolone Sodium Succinate (Solu-Medrol) 80 mg DAILY IV Last administered on 08/04/17 08:44; Admin Dose 80 MG; Start 08/04/17 at 09:00 Docusate Sodium 200 mg 200 mg HS PO Last administered on 08/03/17 21:40; Admin Dose 200 MG; Start 08/03/17 at 21:00 Potassium Chloride/Dextrose/ Sod Cl (D5-1/2ns + KCl 20 Meq) 1,000 ml @ 50 mls/ hr Q20H IV Last administered on 08/04/17 12:25; Admin Dose 70 MLS/HR; Start 08/03/17 at 21:30 Polyethylene Glycol (Miralax) 17 gm BID PO ; Start 08/04/17 at 21:00 Guaifenesin (Mucinex) 600 mg BID PO ; Start 08/04/17 at 21:00 KARINA SAUER MD Aug 04, 2017 15:03
[2017-08-04] MEDS: MONTELUKAST 10 MG TAB PO SCH (22:00)
[2017-08-04] MEDS: ATORVASTATIN 20 MG TAB PO SCH (22:00)
[2017-08-04] MEDS: GUAIFENESIN LA 600 MG TABSR PO SCH (22:00)
[2017-08-04] MEDS: POLYETHYLENE GLYCOL 17 GM PACKET PO SCH (22:00)
[2017-08-04] MEDS: DOCUSATE SODIUM 100 MG CAP PO SCH (22:00)
[2017-08-04] MEDS: METOPROLOL 25 MG TAB PO SCH (22:03)
[2017-08-05] VITALS (13 sets, daily range): BP systolic 96–128; BP diastolic 48–67; PULSE 56–65; RESP 16–20
[2017-08-05] MEDS: ACETYLCYSTEINE 20% 4 ML VIAL NEB SCH ×4 (01:37→20:40)
[2017-08-05] MEDS: ALBUTEROL/IPRATROPIUM (NEB) 3 ML AMP HHN SCH ×4 (01:37→20:29)
[2017-08-05] MEDS: D5W-0.45 NACL + KCL 20 MEQ 1,000 ML IV SCH (02:17)
[2017-08-05 06:35] LABS: ABNORMAL IP MESSAGE 1; BASOPHILS % 0.1 % (0.0-2.0); HEMATOCRIT 36.5 % (42.0-52.0); HEMOGLOBIN 11.7 g/dl (14.0-18.0); LYMPHOCYTES # 1.8 10^3/ul (0.8-2.9); LYMPHOCYTES % 12.4 % (15.0-51.0); MEAN CORPUSCULAR HEMOGLOBIN 29.5 pg (29.0-33.0); MEAN CORPUSCULAR HGB CONC 32.1 g/dl (32.0-37.0); MEAN CORPUSCULAR VOLUME 92.2 fl (82.0-101.0); MEAN PLATELET VOLUME 10.5 fl (7.4-10.4); MONOCYTE # 1.9 10^3/ul (0.3-0.9); MONOCYTES % 13.2 % (0.0-11.0); NEUTROPHIL # 10.7 10^3/ul (1.6-7.5); NEUTROPHILS % 73.8 % (39.0-77.0); PLATELET COUNT 219 10^3/UL (140-415); POSITIVE DIFF @See below; RED BLOOD COUNT 3.96 10^6/ul (4.70-6.10); RED CELL DISTRIBUTION WIDTH 15.5 % (11.5-14.5); WHITE BLOOD COUNT 14.6 10^3/ul (4.8-10.8)
[2017-08-05 07:44] LABS: CALCIUM 8.9 mg/dl (8.4-10.2); CREATININE 1.11 mg/dl (0.61-1.24); POTASSIUM 4.6 mmol/L (3.5-5.1)
[2017-08-05] MEDS: POLYETHYLENE GLYCOL 17 GM PACKET PO SCH (09:00)
[2017-08-05] MEDS: PAROXETINE 20 MG TAB PO SCH (09:43)
[2017-08-05] MEDS: METHYLPREDNISOLONE 125 MG INJ IV SCH (09:43)
[2017-08-05] MEDS: GUAIFENESIN LA 600 MG TABSR PO SCH ×2 (09:43→20:52)
[2017-08-05] MEDS: LUBIPROSTONE 24 MCG CAP PO SCH (09:43)
[2017-08-05] MEDS: MAGNESIUM OXIDE 400 MG TAB PO SCH ×2 (09:43→20:52)
[2017-08-05] MEDS: ASPIRIN (EC) 81 MG TAB PO SCH (09:43)
[2017-08-05] MEDS: METOPROLOL 25 MG TAB PO SCH ×2 (09:47→20:53)
[2017-08-05] MEDS: DIAZEPAM 5 MG TAB PO SCH ×2 (09:47→20:53)
--- NOTE | 2017-08-05 14:24 | CONS ---
Date/Time of Note Date/Time of Note DATE: 08/05/17 TIME: 14:21 Assessment/Plan Assessment/Plan Additional Assessment/Plan Impression # Abdominal pain, hx/o SBO in the past # COPD with mild exacerbation with mild wheezing on exam # CHF hx with mildly decreased EF. Pt is non-compliant with his meds. # HTN # Obesity >> changed BB to metoprolol given wheezing >> eventual ARB/ACEi >> gentle lasix today given normalized Cr >> statin >> ASA >> echo pending Consultation Date/Type/Reason Admit Date/Time Aug 03, 2017 at 07:58 Initial Consult Date Type of Consultation: Cardiology 24 HR Interval Summary Free Text/Dictation Pt had diarrhea overnight. No issues now. No CP or SOB. Exam/Review of Systems Vital Signs Vitals Vital Signs Date Time Temp Pulse Resp B/P Pulse Ox O2 Delivery O2 Flow Rate FiO2 08/05/17 12:05 60 08/05/17 12:03 98.1 19 106/53 95 08/05/17 08:18 Nasal Cannula 2.0 08/04/17 20:01 21 Intake and Output 08/04/17 08/04/17 08/05/17 15:00 23:00 07:00 Intake Total 1040 ml 1070 ml Output Total 700 ml 800 ml Balance 340 ml 270 ml Exam Constitutional: alert, oriented, well developed Head: normocephalic Eyes: nl conjunctiva ENMT: nl external ears & nose, nl lips & teeth Neck: supple Respiratory: clear to auscultation, normal air movement Cardiovascular: regular rate and rhythm, No S3, No edema Gastrointestinal: soft Musculoskeletal: nl extremities to inspection Neurological: COMPUTER CLERK II-XII intact Results Result Diagram: 08/05/17 0509 08/05/17 0609 Results 24 hrs Laboratory Tests Test 08/05/17 05:09 08/05/17 06:09 White Blood Count 14.6 H Red Blood Count 3.96 L Hemoglobin 11.7 L Hematocrit 36.5 L Mean Corpuscular Volume 92.2 Mean Corpuscular Hemoglobin 29.5 Mean Corpuscular Hemoglobin Concent 32.1 Red Cell Distribution Width 15.5 H Platelet Count 219 Mean Platelet Volume 10.5 H Neutrophils % 73.8 Lymphocytes % 12.4 L Monocytes % 13.2 H Eosinophils % 0.0 Basophils % 0.1 Nucleated Red Blood Cells % 0.0 Neutrophils # 10.7 H Lymphocytes # 1.8 Monocytes # 1.9 H Eosinophils # 0.0 Basophils # 0.0 Nucleated Red Blood Cells # 0.0 Sodium Level 137 Potassium Level 4.6 Chloride Level 102 Carbon Dioxide Level 29 Anion Gap 11 Blood Urea Nitrogen 41 H Creatinine 1.11 Glucose Level 101 Calcium Level 8.9 B-Type Natriuretic Peptide 1170 H Medications Medications Current Medications Aspirin (Halfprin) 81 mg DAILY PO Last administered on 08/05/17 09:43; Admin Dose 81 MG; Start 08/04/17 at 09:00 Atorvastatin Calcium (Lipitor) 20 mg QHS PO Last administered on 08/04/17 22: 00; Admin Dose 20 MG; Start 08/03/17 at 21:00 Diazepam (Valium) 5 mg BID PO Last administered on 08/05/17 09:47; Admin Dose 5 MG; Start 08/03/17 at 21:00 Lubiprostone (Amitiza) 24 mcg BID PO Last administered on 08/05/17 09:43; Admin Dose 24 MCG; Start 08/03/17 at 21:00 Magnesium Oxide (Mag-Ox 400) 400 mg BID PO Last administered on 08/05/17 09:43 ; Admin Dose 400 MG; Start 08/03/17 at 21:00 Montelukast Sodium (Singulair) 10 mg QHS PO Last administered on 08/04/17 22: 00; Admin Dose 10 MG; Start 08/03/17 at 21:00 Paroxetine HCl 40 mg 40 mg DAILY PO Last administered on 08/05/17 09:43; Admin Dose 40 MG; Start 08/04/17 at 09:00 Levofloxacin/ Dextrose (Levaquin 500mg/ D5W 100 ml (Pmx)) 100 ml @ 100 mls/hr Q48H IVPB ; Start 08/05/17 at 15:00 Methylprednisolone Sodium Succinate (Solu-Medrol) 80 mg DAILY IV Last administered on 08/05/17 09:43; Admin Dose 80 MG; Start 08/04/17 at 09:00 Docusate Sodium 200 mg 200 mg HS PO Last administered on 08/04/17 22:00; Admin Dose 200 MG; Start 08/03/17 at 21:00 Potassium Chloride/Dextrose/ Sod Cl (D5-1/2ns + KCl 20 Meq) 1,000 ml @ 50 mls/ hr Q20H IV Last administered on 08/05/17 02:17; Admin Dose 50 MLS/HR; Start 08/03/17 at 21:30 Polyethylene Glycol (Miralax) 17 gm BID PO Last administered on 08/04/17 22:00 ; Admin Dose 17 GM; Start 08/04/17 at 21:00 Guaifenesin (Mucinex) 600 mg BID PO Last administered on 08/05/17 09:43; Admin Dose 600 MG; Start 08/04/17 at 21:00 Metoprolol Tartrate (Lopressor) 25 mg BID PO Last administered on 08/05/17 09: 47; Admin Dose 25 MG; Start 08/04/17 at 21:00 KARINA SAUER MD Aug 05, 2017 14:24
[2017-08-05] MEDS ORDERED: LEVOFLOXACIN 500MG/D5W (PMX) 100 ML IVPB SCH (15:00)
[2017-08-05] MEDS: LISINOPRIL 5 MG TAB PO SCH (17:30)
--- NOTE | 2017-08-05 18:36 | PN ---
Date/Time of Note Date/Time of Note DATE: 08/05/17 TIME: 18:27 Assessment/Plan VTE Prophylaxis VTE Prophylaxis Intervention: ambulation Lines/Catheters IV Catheter Type (from Nrs): Peripheral IV Assessment/Plan Problems: (1) COPD exacerbation Status: Acute Comment: improving on treatment . Will change antibiotics and steroids to po for possible discharge tomorrow or Sunday. (2) Constipation Status: Chronic Comment: Now with diarrhea on amitiza, colace and miralax. Will hold all meds and restart when patient has constipation again. Unclear what meds patient has been taking at home, needs clarification with . Qualifiers: Constipation type: unspecified constipation type Qualified Code: K59.00 - Constipation, unspecified constipation type (3) Acute renal impairment Status: Acute Comment: creatinine back to baseline, BUN still elevated possibly due to diarrhea. Continue gentle IVF and galo bun/cr in am. (4) Tinea pedis Status: Chronic Comment: Start clotrimazole cream bid Subjective 24 Hr Interval Summary Free Text/Dictation Patient still having a lot of BM's today. Breathing better. Complains of itchy feet. Exam/Review of Systems Vital Signs Vitals Vital Signs Date Time Temp Pulse Resp B/P Pulse Ox O2 Delivery O2 Flow Rate FiO2 08/05/17 16:05 61 08/05/17 16:03 98.4 18 96/48 93 08/05/17 14:23 21 08/05/17 08:18 Nasal Cannula 2.0 Intake and Output 08/04/17 08/04/17 08/05/17 15:00 23:00 07:00 Intake Total 1040 ml 1070 ml Output Total 700 ml 800 ml Balance 340 ml 270 ml Exam Constitutional: alert, oriented Head: atraumatic, normocephalic Eyes: nl conjunctiva, nl sclera ENMT: mucosa pink and moist, nl external ears & nose Respiratory: clear to auscultation, normal air movement Cardiovascular: regular rate and rhythm Gastrointestinal: non-tender, soft Musculoskeletal: nl extremities to inspection Skin: other (peeling skin of both feet palmar surface) Results Result Diagram: 08/05/17 0509 08/05/17 0609 Results 24 hrs Laboratory Tests Test 08/05/17 05:09 08/05/17 06:09 White Blood Count 14.6 H Red Blood Count 3.96 L Hemoglobin 11.7 L Hematocrit 36.5 L Mean Corpuscular Volume 92.2 Mean Corpuscular Hemoglobin 29.5 Mean Corpuscular Hemoglobin Concent 32.1 Red Cell Distribution Width 15.5 H Platelet Count 219 Mean Platelet Volume 10.5 H Neutrophils % 73.8 Lymphocytes % 12.4 L Monocytes % 13.2 H Eosinophils % 0.0 Basophils % 0.1 Nucleated Red Blood Cells % 0.0 Neutrophils # 10.7 H Lymphocytes # 1.8 Monocytes # 1.9 H Eosinophils # 0.0 Basophils # 0.0 Nucleated Red Blood Cells # 0.0 Sodium Level 137 Potassium Level 4.6 Chloride Level 102 Carbon Dioxide Level 29 Anion Gap 11 Blood Urea Nitrogen 41 H Creatinine 1.11 Glucose Level 101 Calcium Level 8.9 B-Type Natriuretic Peptide 1170 H Medications Medications Current Medications Aspirin (Halfprin) 81 mg DAILY PO Last administered on 08/05/17 09:43; Admin Dose 81 MG; Start 08/04/17 at 09:00 Atorvastatin Calcium (Lipitor) 20 mg QHS PO Last administered on 08/04/17 22: 00; Admin Dose 20 MG; Start 08/03/17 at 21:00 Diazepam (Valium) 5 mg BID PO Last administered on 08/05/17 09:47; Admin Dose 5 MG; Start 08/03/17 at 21:00 Lubiprostone (Amitiza) 24 mcg BID PO Last administered on 08/05/17 09:43; Admin Dose 24 MCG; Start 08/03/17 at 21:00 Magnesium Oxide (Mag-Ox 400) 400 mg BID PO Last administered on 08/05/17 09:43 ; Admin Dose 400 MG; Start 08/03/17 at 21:00 Montelukast Sodium (Singulair) 10 mg QHS PO Last administered on 08/04/17 22: 00; Admin Dose 10 MG; Start 08/03/17 at 21:00 Paroxetine HCl 40 mg 40 mg DAILY PO Last administered on 08/05/17 09:43; Admin Dose 40 MG; Start 08/04/17 at 09:00 Levofloxacin/ Dextrose (Levaquin 500mg/ D5W 100 ml (Pmx)) 100 ml @ 100 mls/hr Q48H IVPB Last administered on 08/05/17 16:00; Admin Dose 100 MLS/HR; Start 08/05/17 at 15:00 Methylprednisolone Sodium Succinate (Solu-Medrol) 80 mg DAILY IV Last administered on 08/05/17 09:43; Admin Dose 80 MG; Start 08/04/17 at 09:00 Docusate Sodium (Colace) 200 mg HS PO Last administered on 08/04/17 22:00; Admin Dose 200 MG; Start 08/03/17 at 21:00 Polyethylene Glycol (Miralax) 17 gm BID PO Last administered on 08/04/17 22:00 ; Admin Dose 17 GM; Start 08/04/17 at 21:00 Guaifenesin (Mucinex) 600 mg BID PO Last administered on 08/05/17 09:43; Admin Dose 600 MG; Start 08/04/17 at 21:00 Metoprolol Tartrate (Lopressor) 25 mg BID PO Last administered on 08/05/17 09: 47; Admin Dose 25 MG; Start 08/04/17 at 21:00 Lisinopril (Zestril) 5 mg DAILY PO ; Start 08/05/17 at 14:30 BREEZY FRIAS MD Aug 05, 2017 18:36
[2017-08-05] MEDS: ATORVASTATIN 20 MG TAB PO SCH (20:52)
[2017-08-05] MEDS: MONTELUKAST 10 MG TAB PO SCH (20:52)
[2017-08-05] MEDS: CLOTRIMAZOLE 1% 30 GM CR TOP SCH (20:54)
[2017-08-06] VITALS (11 sets, daily range): BP systolic 95–127; BP diastolic 52–56; PULSE 55–66; RESP 18–22
[2017-08-06] MEDS: ALBUTEROL/IPRATROPIUM (NEB) 3 ML AMP HHN SCH ×5 (01:32→20:06)
[2017-08-06] MEDS: ACETYLCYSTEINE 20% 4 ML VIAL NEB SCH ×5 (01:40→20:06)
[2017-08-06] MEDS: LEVOFLOXACIN 500 MG TAB PO SCH (06:12)
[2017-08-06 07:23] LABS: CALCIUM 8.8 mg/dl (8.4-10.2); CREATININE 1.21 mg/dl (0.61-1.24); POTASSIUM 4.5 mmol/L (3.5-5.1)
[2017-08-06] MEDS: DIAZEPAM 5 MG TAB PO SCH ×2 (08:24→20:45)
[2017-08-06] MEDS: GUAIFENESIN LA 600 MG TABSR PO SCH ×2 (08:25→20:45)
[2017-08-06] MEDS: MAGNESIUM OXIDE 400 MG TAB PO SCH ×2 (08:25→20:45)
[2017-08-06] MEDS: PAROXETINE 20 MG TAB PO SCH (08:25)
[2017-08-06] MEDS: ASPIRIN (EC) 81 MG TAB PO SCH (08:25)
[2017-08-06] MEDS: LISINOPRIL 5 MG TAB PO SCH (08:26)
[2017-08-06] MEDS: predniSONE 20 MG TAB PO SCH (08:26)
[2017-08-06] MEDS: CLOTRIMAZOLE 1% 30 GM CR TOP SCH ×2 (08:30→20:46)
[2017-08-06] MEDS: METOPROLOL 25 MG TAB PO SCH ×2 (08:30→20:45)
--- NOTE | 2017-08-06 09:13 | PN ---
Date/Time of Note Date/Time of Note DATE: 08/06/17 TIME: 09:08 SUBJECTIVE: Patient feeling well denies any complaints of chest pains dyspnea or palpitations or further abdominal pain or any PND orthopnea. States that he continues to smoke a pipe at home and he does take his medications although is been a history of noncompliance according to the chart. Chart, medications and laboratory studies reviewed. ROS: Patient denied any fevers, chills, weight loss, nausea, vomiting, diarrhea, constipation, cough, hemoptysis, dysuria, hematuria, nocturia, any neurologic symptoms, headache, any chest pains, dyspnea, PND, orthopnea, leg edema, or palpitations. All other review of systems were normal. OBJECTIVE: Vital signs please see chart. HEENT; no JVD, no HJR, carotids 2 over 4+ without bruits. Chest: Clear to auscultation and percussion, no rales, wheezes or rhonchi, prolonged expiratory phase.. Cardiac: S4, S1, S2 with normal physiologic splitting, 1/6 systolic ejection murmur, no rub click or diastolic murmur noted. Abdominal: Bowel sounds positive, soft nontender, no abdominal bruit noted, no hepatosplenomegaly. Extremities: No cyanosis, clubbing, or edema. Negative Homans sign or palpable cords. Pulses: 2/4 pulses diffusely no bruits noted. ASSESSMENT: 1. COPD continues to smoke. 2. Coronary artery disease distant stents history unknown. 3. Renal insufficiency. 4. Abdominal pain etiology undetermined possibly due to alcoholism. 5. Hypertension. 6. Hyperlipidemia. 7. Possible mild diastolic heart failure. 8. Mild dementia according to prior records. 9. Degenerative joint disease prior hip replacement. Patient currently stable minimal troponin elevation will follow pattern, awaiting echo report, will start Lasix orally 40 mg a day with elevated BNP and follow EKG as well. Possible discharge in next 1-2 days will need follow-up with Dr. Farmer for further evaluation and possible stress testing. PLAN: 1. Start Lasix 40 mg orally. 2. Follow troponins EKG awaiting echo report. 3. Continue statin, aspirin, beta 1 selective metoprolol, and lisinopril. WASHINGTON AGUILAR MD Aug 06, 2017 09:13
[2017-08-06] MEDS: FUROSEMIDE 40 MG TAB PO SCH (10:46)
--- NOTE | 2017-08-06 14:19 | RADRPT ---
PROCEDURE: XR Chest. CLINICAL INDICATION: Shortness of breath. TECHNIQUE: Single frontal view. COMPARISON: 08/03/2017. FINDINGS: There is mild atelectasis at the lung bases. The lungs are otherwise clear. The heart is enlarged. There is no pleural effusion. There is no pneumothorax. IMPRESSION: 1. Mild atelectasis at the lung bases. 2. Cardiomegaly. 3. Otherwise unremarkable chest x-ray. RPTAT: QQ .Benjamin Elliott MD, Date Time Electronically viewed and signed by .Benjamin Elliott MD, on 08/06/2017 14:18 .R/
--- NOTE | 2017-08-06 18:27 | PN ---
Date/Time of Note Date/Time of Note DATE: 08/06/17 TIME: 18:20 Assessment/Plan VTE Prophylaxis VTE Prophylaxis Intervention: ambulation Lines/Catheters IV Catheter Type (from Nrs): Saline Lock Assessment/Plan Problems: (1) COPD exacerbation Status: Acute Comment: improving, still with mild hypoxia and respiratory rhonchi. Continue current meds and discharge to home if stable tomorrow. (2) Constipation Status: Chronic Comment: Resume amitiza now that his diarrhea has resolved. Qualifiers: Constipation type: unspecified constipation type Qualified Code: K59.00 - Constipation, unspecified constipation type (3) CHF exacerbation Status: Acute Comment: resuming lasix, metoprolol, lisinopril. Watch bp which is now in the 90's. Qualifiers: Congestive heart failure type: unspecified congestive heart failure type Qualified Code: I50.9 - Acute on chronic congestive heart failure, unspecified congestive heart failure type (4) Acute renal impairment Status: Acute Comment: Improved with hydration . Will stop IVF and resume his usual medications. Recheck BUN/Cr on lasix and lisinopril. Subjective 24 Hr Interval Summary Constitutional: no complaints Exam/Review of Systems Vital Signs Vitals Vital Signs Date Time Temp Pulse Resp B/P Pulse Ox O2 Delivery O2 Flow Rate FiO2 08/06/17 16:12 62 08/06/17 15:26 98.3 18 95/55 92 08/06/17 07:57 Nasal Cannula 2.0 08/06/17 01:42 28 Intake and Output 08/05/17 08/05/17 08/06/17 15:00 23:00 07:00 Intake Total 1000 ml 445 ml Balance 1000 ml 445 ml Exam Constitutional: alert, oriented Psych: no complaints ENMT: mucosa pink and moist, nl external ears & nose Respiratory: crackles/rales, diminished breath sounds Cardiovascular: regular rate and rhythm Gastrointestinal: bowel sounds, non-tender, soft Results Result Diagram: 08/05/17 0509 08/06/17 0557 Results 24 hrs Laboratory Tests Test 08/06/17 05:57 Sodium Level 137 Potassium Level 4.5 Chloride Level 105 Carbon Dioxide Level 28 Anion Gap 9 Blood Urea Nitrogen 45 H Creatinine 1.21 Glucose Level 92 Calcium Level 8.8 B-Type Natriuretic Peptide 1470 H Medications Medications Current Medications Aspirin (Halfprin) 81 mg DAILY PO Last administered on 08/06/17 08:25; Admin Dose 81 MG; Start 08/04/17 at 09:00 Atorvastatin Calcium (Lipitor) 20 mg QHS PO Last administered on 08/05/17 20: 52; Admin Dose 20 MG; Start 08/03/17 at 21:00 Diazepam (Valium) 5 mg BID PO Last administered on 08/06/17 08:24; Admin Dose 5 MG; Start 08/03/17 at 21:00 Magnesium Oxide (Mag-Ox 400) 400 mg BID PO Last administered on 08/06/17 08:25 ; Admin Dose 400 MG; Start 08/03/17 at 21:00 Montelukast Sodium (Singulair) 10 mg QHS PO Last administered on 08/05/17 20: 52; Admin Dose 10 MG; Start 08/03/17 at 21:00 Paroxetine HCl (Paxil) 40 mg DAILY PO Last administered on 08/06/17 08:25; Admin Dose 40 MG; Start 08/04/17 at 09:00 Guaifenesin (Mucinex) 600 mg BID PO Last administered on 08/06/17 08:25; Admin Dose 600 MG; Start 08/04/17 at 21:00 Metoprolol Tartrate (Lopressor) 25 mg BID PO Last administered on 08/05/17 20: 53; Admin Dose 25 MG; Start 08/04/17 at 21:00 Lisinopril (Zestril) 5 mg DAILY PO Last administered on 08/06/17 08:26; Admin Dose 5 MG; Start 08/05/17 at 14:30 Clotrimazole (Lotrimin Cr) 1 applic BID TOP Last administered on 08/06/17 08: 30; Admin Dose 1 APPLIC; Start 08/05/17 at 21:00; Stop 08/19/17 at 20:59 Levofloxacin (Levaquin) 500 mg DAILY@06 PO Last administered on 08/06/17 06:12 ; Admin Dose 500 MG; Start 08/06/17 at 06:00 Prednisone (Prednisone) 40 mg DAILY PO Last administered on 08/06/17 08:26; Admin Dose 40 MG; Start 08/06/17 at 09:00 Furosemide (Lasix) 40 mg DAILY PO Last administered on 10/9/17at 10:46; Admin Dose 40 MG; Start 08/06/17 at 09:30 BREEZY FRIAS MD Aug 06, 2017 18:27
[2017-08-06] MEDS: LUBIPROSTONE 24 MCG CAP PO SCH (20:44)
[2017-08-06] MEDS: MONTELUKAST 10 MG TAB PO SCH (20:45)
[2017-08-06] MEDS: ATORVASTATIN 20 MG TAB PO SCH (20:45)
[2017-08-07] VITALS (11 sets, daily range): BP systolic 89–121; BP diastolic 50–59; PULSE 60–75; RESP 16–20
[2017-08-07] MEDS: ALBUTEROL/IPRATROPIUM (NEB) 3 ML AMP HHN SCH ×4 (01:55→19:57)
[2017-08-07] MEDS: ACETYLCYSTEINE 20% 4 ML VIAL NEB SCH ×4 (01:56→19:58)
[2017-08-07] MEDS: LEVOFLOXACIN 500 MG TAB PO SCH (05:34)
[2017-08-07 07:16] LABS: ABNORMAL IP MESSAGE 1; BASOPHILS % 0.2 % (0.0-2.0); EOSINOPHILS % 0.2 % (0.0-7.0); HEMATOCRIT 32.7 % (42.0-52.0); HEMOGLOBIN 10.7 g/dl (14.0-18.0); LYMPHOCYTES # 2.2 10^3/ul (0.8-2.9); LYMPHOCYTES % 15.8 % (15.0-51.0); MEAN CORPUSCULAR HEMOGLOBIN 30.2 pg (29.0-33.0); MEAN CORPUSCULAR HGB CONC 32.7 g/dl (32.0-37.0); MEAN CORPUSCULAR VOLUME 92.4 fl (82.0-101.0); MEAN PLATELET VOLUME 10.2 fl (7.4-10.4); MONOCYTE # 1.8 10^3/ul (0.3-0.9); MONOCYTES % 12.9 % (0.0-11.0); NEUTROPHIL # 9.7 10^3/ul (1.6-7.5); NEUTROPHILS % 69.7 % (39.0-77.0); PLATELET COUNT 218 10^3/UL (140-415); POSITIVE DIFF @See below; RED BLOOD COUNT 3.54 10^6/ul (4.70-6.10); RED CELL DISTRIBUTION WIDTH 15.4 % (11.5-14.5); WHITE BLOOD COUNT 13.9 10^3/ul (4.8-10.8)
[2017-08-07 07:41] LABS: AMYLASE 70 U/L (11-123)
[2017-08-07 07:43] LABS: CALCIUM 8.2 mg/dl (8.4-10.2); CHOL/HDL RATIO 3.3 RATIO; CREATININE 1.2 mg/dl (0.61-1.24); PHOSPHORUS 3.5 mg/dl (2.5-4.9); POTASSIUM 4.1 mmol/L (3.5-5.1)
[2017-08-07 07:51] LABS: TROPONIN-I 0.029 ng/ml (0.00-0.12)
[2017-08-07 08:10] LABS: THYROID STIMULATING HORMONE 0.955 MIU/L (0.465-4.680)
--- NOTE | 2017-08-07 08:41 | RADRPT ---
Echocardiogram Report Patient Name: FARHAT WATERMAN Gender: Male Date: 1935 Study Date: 05-Aug-2017 Skein Tier: Anton Gee [facility] Location: 504-[address] Ref. Physician: BREEZY FRIAS Quality: Adequate Procedures: Transthoracic echocardiogram with complete 2D, M-Mode, and doppler examination. Indications: COPD, CHF. 2D/M Mode Doppler Measurement Value Normal Ranges Measurement Value Normal Ranges LVIDd 2D 5.6 3.5 - 5.6 cm AV Peak Manolo 1.3 m/sec LVIDs 2D 4.4 2.1 - 4.1 cm AV Peak PG 7.0 mmHg FS 2D 21.0 % LVOT Peak Manolo 0.6 m/sec LVPWd 2D 1.3 0.6 - 1.1 cm LVOT Peak PG 2.0 mmHg IVSd 2D 1.4 0.6 - 1.1 cm MV E Peak Manolo 1.0 m/sec IVS/LVPW 2D 1.0 MV A Peak Manolo 0.9 m/sec AoR Diam 2D 3.2 2.0 - 3.7 cm MV E/A 1.2 LA/Ao 2D 1 0 - 1 MV Decel Time 102 msec EDV 2D 177.0 cm3 MV E/A 1.2 ESV 2D 86.9 cm3 MR Peak PG 113.0 mmHg LA Dimen 2D 3.7 2.3 - 4.0 cm MR Peak Manolo 5.3 m/sec TR Peak Manolo 2.9 m/sec TR Peak PG 34.0 mmHg RVSP 37.0 mmHg Findings Left Ventricle: Lower limits of normal systolic function. Normal left ventricular cavity size. Mild concentric left ventricular hypertrophy. Ejection fraction is visually estimated at 50 %. Abnormal Diastolic Function. These segments of the LV are hypokinetic inferolateral mid segment. Right Ventricle: Normal right ventricular size. Normal right ventricular systolic function. Left Atrium: The left atrium is normal in size. Right Atrium: The right atrium is normal in size. Mitral Valve: Mild mitral leaflet calcification. Mild mitral annular calcification. Mild mitral valve regurgitation. Aortic Valve: Normal appearance of the aortic valve. No significant aortic stenosis or insufficiency. Tricuspid Valve: Normal appearance of the tricuspid valve. Estimated peak PA systolic pressure 37 mmHg. There is mild tricuspid regurgitation. Pulmonic Valve: Pulmonic valve not well visualized. There is trace pulmonic regurgitation. Pericardium: Normal pericardium with no significant pericardial effusion. Aorta: Normal aortic root. IVC: Normal size and normal respiratory collapse consistent with normal right atrial pressure. Conclusions 1.Normal LV size with low normal EF of about 50% with mild inferolateral hypokinesis. 2.Mild pulmonary HTN. 3.Mild Mitral and tricuspid regurgitation. Electronically Signed By: Nik Farmer 05-Aug-2017 14:51:42 -0700 Patient Name: FARHAT WATERMAN Study Date: 05-Aug-[id number]
[2017-08-07] MEDS: FUROSEMIDE 40 MG TAB PO SCH (09:00)
[2017-08-07] MEDS: DIAZEPAM 5 MG TAB PO SCH (09:00)
[2017-08-07] MEDS: METOPROLOL 25 MG TAB PO SCH (09:00)
[2017-08-07] MEDS: LISINOPRIL 5 MG TAB PO SCH (09:00)
[2017-08-07] MEDS: predniSONE 20 MG TAB PO SCH (09:09)
[2017-08-07] MEDS: LUBIPROSTONE 24 MCG CAP PO SCH (09:09)
[2017-08-07] MEDS: ASPIRIN (EC) 81 MG TAB PO SCH (09:09)
[2017-08-07] MEDS: GUAIFENESIN LA 600 MG TABSR PO SCH (09:10)
[2017-08-07] MEDS: MAGNESIUM OXIDE 400 MG TAB PO SCH (09:10)
[2017-08-07] MEDS: PAROXETINE 20 MG TAB PO SCH (09:10)
[2017-08-07] MEDS: CLOTRIMAZOLE 1% 30 GM CR TOP SCH (09:14)
--- NOTE | 2017-08-07 16:24 | CONS ---
Date/Time of Note Date/Time of Note DATE: 08/07/17 TIME: 16:18 Assessment/Plan Assessment/Plan Chief Complaint/Hosp Course ASSESSMENT: 1. COPD continues to smoke. 2. Coronary artery disease distant stents history unknown. 3. Renal insufficiency. 4. Abdominal pain etiology undetermined possibly due to alcoholism. 5. Hypertension. 6. Hyperlipidemia. 7. Possible mild diastolic heart failure. 8. Mild dementia according to prior records. 9. Degenerative joint disease prior hip replacement. Patient currently flat minimal trop abnl, not c/w with ACS. echo without wma. does have elevated bnp, on lasix now. Possible discharge in next 1-2 days will need follow-up with Dr. Farmer for further evaluation and possible stress testing. PLAN: 1. cont Lasix 40 mg orally. 2. Continue statin, aspirin, beta 1 selective metoprolol, and lisinopril. Problems: Consultation Date/Type/Reason Admit Date/Time Aug 03, 2017 at 07:58 Initial Consult Date Type of Consultation: Cardiology Referring Provider: BREEZY FRIAS MD 24 HR Interval Summary Free Text/Dictation no acute events. pt states abd pain improved, states sob at baseline. Detailed Summary Respiratory: shortness of breath Cardiovascular: no complaints Gastrointestinal: no complaints Genitourinary: no complaints Exam/Review of Systems Vital Signs Vitals Vital Signs Date Time Temp Pulse Resp B/P Pulse Ox O2 Delivery O2 Flow Rate FiO2 08/07/17 16:00 68 08/07/17 14:21 20 96 Nasal Cannula 2.0 08/07/17 12:15 98.1 121/57 08/06/17 01:42 28 Intake and Output 08/06/17 08/06/17 08/07/17 15:00 23:00 07:00 Intake Total 1000 ml 300 ml Output Total 850 ml Balance 150 ml 300 ml Exam HEENT; no JVD, no HJR, carotids 2 over 4+ without bruits. Chest: Clear to auscultation and percussion, no rales, wheezes or rhonchi, prolonged expiratory phase.. Cardiac: S4, S1, S2 with normal physiologic splitting, 1/6 systolic ejection murmur, no rub click or diastolic murmur noted. Abdominal: Bowel sounds positive, soft nontender, no abdominal bruit noted, no hepatosplenomegaly. Extremities: No cyanosis, clubbing, or edema. Negative Homans sign or palpable cords. Pulses: 2/4 pulses diffusely no bruits noted. Results Result Diagram: 08/07/1762408/07/17623 Results 24 hrs Laboratory Tests Test 08/07/17 06:24 08/07/17 06:25 Sodium Level 137 Potassium Level 4.1 Chloride Level 103 Carbon Dioxide Level 30 Anion Gap 8 Blood Urea Nitrogen 43 H Creatinine 1.20 Glucose Level 92 Calcium Level 8.2 L Phosphorus Level 3.5 Troponin I 0.029 B-Type Natriuretic Peptide 1690 H Triglycerides Level 292 H Cholesterol Level 123 LDL Cholesterol, Calculated 28 HDL Cholesterol 37 Cholesterol/HDL Ratio 3.3 Amylase Level 70 Lipase 85 Thyroid Stimulating Hormone (TSH) 0.955 White Blood Count 13.9 H Red Blood Count 3.54 L Hemoglobin 10.7 L Hematocrit 32.7 L Mean Corpuscular Volume 92.4 Mean Corpuscular Hemoglobin 30.2 Mean Corpuscular Hemoglobin Concent 32.7 Red Cell Distribution Width 15.4 H Platelet Count 218 Mean Platelet Volume 10.2 Neutrophils % 69.7 Lymphocytes % 15.8 Monocytes % 12.9 H Eosinophils % 0.2 Basophils % 0.2 Nucleated Red Blood Cells % 0.0 Neutrophils # 9.7 H Lymphocytes # 2.2 Monocytes # 1.8 H Eosinophils # 0.0 Basophils # 0.0 Nucleated Red Blood Cells # 0.0 Medications Medications Current Medications Aspirin (Halfprin) 81 mg DAILY PO Last administered on 08/07/17 09:09; Admin Dose 81 MG; Start 08/04/17 at 09:00 Atorvastatin Calcium (Lipitor) 20 mg QHS PO Last administered on 08/06/17 20: 45; Admin Dose 20 MG; Start 08/03/17 at 21:00 Diazepam (Valium) 5 mg BID PO Last administered on 08/06/17 20:45; Admin Dose 5 MG; Start 08/03/17 at 21:00 Magnesium Oxide (Mag-Ox 400) 400 mg BID PO Last administered on 08/07/17 09: 10; Admin Dose 400 MG; Start 08/03/17 at 21:00 Montelukast Sodium (Singulair) 10 mg QHS PO Last administered on 08/06/17 20: 45; Admin Dose 10 MG; Start 08/03/17 at 21:00 Paroxetine HCl (Paxil) 40 mg DAILY PO Last administered on 08/07/17 09:10; Admin Dose 40 MG; Start 08/04/17 at 09:00 Guaifenesin (Mucinex) 600 mg BID PO Last administered on 08/07/17 09:10; Admin Dose 600 MG; Start 08/04/17 at 21:00 Metoprolol Tartrate (Lopressor) 25 mg BID PO Last administered on 08/06/17 20: 45; Admin Dose 25 MG; Start 08/04/17 at 21:00 Lisinopril (Zestril) 5 mg DAILY PO Last administered on 08/06/17 08:26; Admin Dose 5 MG; Start 08/05/17 at 14:30 Clotrimazole (Lotrimin Cr) 1 applic BID TOP Last administered on 08/07/17 09: 14; Admin Dose 1 APPLIC; Start 08/05/17 at 21:00; Stop 08/19/17 at 20:59 Levofloxacin (Levaquin) 500 mg DAILY@06 PO Last administered on 08/07/17 05: 34; Admin Dose 500 MG; Start 08/06/17 at 06:00 Prednisone (Prednisone) 40 mg DAILY PO Last administered on 08/07/17 09:09; Admin Dose 40 MG; Start 08/06/17 at 09:00 Furosemide (Lasix) 40 mg DAILY PO Last administered on 08/06/17 10:46; Admin Dose 40 MG; Start 08/06/17 at 09:30 Lubiprostone (Amitiza) 24 mcg BID PO Last administered on 08/07/17 09:09; Admin Dose 24 MCG; Start 08/06/17 at 21:00 Procedures Procedures cxr report reviewed in emr BAKARI YOUNG Aug 07, 2017 16:24
[2017-08-07] MEDS ORDERED: FURO40TA4 PO (18:44)
[2017-08-07] MEDS ORDERED: METO-448 PO (18:44)
[2017-08-07] MEDS ORDERED: CLO15CR1 TOP (18:44)
--- NOTE | 2017-08-07 19:00 | DS ---
Date/Time of Note Date/Time of Note DATE: 08/07/17 TIME: 18:49 Discharge Summary Admission/Discharge Info Admit Date/Time Aug 03, 2017 at 07:58 Discharge Date/Time August 07, 2017 at 18:49 Discharge Diagnosis 1. Abdominal pain 2. Constipation 3. COPD exacerbation 4. Acute bronchitis 5. CHF exacerbation 6. Ventral hernia 7. Tinea pedis 8. Hypertension 9. Hyperlipidemia 10. Dehydration Patient Condition: Fair Consults Cardiology consultation Procedures Abdominal and pelvic CT scan 2D echocardiogram Hx of Present Illness Patient came to the Emergency Room for abdominal pain but was noted to be in respiratory distress with wheezing and hypoxia and is admitted for copd exacerbation, possible chf. Hospital Course Abdominal and pelvic CT was obtained for abdominal pain and was negative for acute changes but the KUB was notable for large amount of stool. Patient was given magnesium citrate for probable constipation and his abdominal pain resolved after he had multiple bowel movements the next 2 days. Patient's COPD and hypoxia also improved with the DuoNeb respiratory treatment in combination with Mucomyst and Mucinex p.o. he also received several days of IV Solu-Medrol which was then changed to prednisone 40 mg p.o. before discharged to home. Patient received Levaquin for possible acute bronchitis while he was in the hospital but since this is not covered by his insurance he will resume Bactrim once he is discharged home. Patient was also seen by furniture rental consultant for possible CHF exacerbation, his proBNP were elevated although his troponins were normal, he was started back on Lasix with improvement of the chest congestion and wheezing. His 2D echo was stable compared to previous exams. He is discharged home on a new prescription of Lasix 40 mg p.o. daily. Patient's carvedilol was also changed to metoprolol for less beta-2 blockage. His blood pressure stabilized between 90-120 systolic when he was placed on metoprolol 25 mg twice daily, Lasix 40 mg p.o. daily, and lisinopril 5 mg p.o. daily. Patient also complains of feet itching for which he was started on Chlortrimazole while he was in the hospital. Home Meds Active Scripts Clotrimazole (Clotrim) 15 Gm Cr, 1 APPLIC TOP BID for 14 Days, #30 GM Prov:BREEZY HARVEY MD 08/07/17 Furosemide* (Furosemide*) 40 Mg Tablet, 40 MG PO DAILY for 30 Days, #30 TAB Prov:BREEZY HARVEY MD 08/07/17 Metoprolol Tartrate* (Lopressor*) 25 Mg Tab, 25 MG PO BID for 30 Days, #60 TAB Prov:BREEZY HARVEY MD 08/07/17 Reported Medications Diazepam* (Diazepam*) 5 Mg Tablet, 5 MG PO BID, TAB 08/03/17 Prednisone* (Prednisone*) 20 Mg Tab, 20 MG PO DAILY, TAB 08/03/17 Sulfamethoxazole/Trimethoprim* (Bactrim Ds* Tablet) 1 Each Tablet, 1 TAB PO BID , TAB 08/03/17 Tiotropium [place]* (Spiriva*) 18 Mcg Cap.w.dev, 1 CAP INHALATION DAILY, #30 CAP 05/01/17 Albuterol Sulfate* (Ventolin HFA*) 18 Gm Hfa.aer.ad, 2 PUFF INHALATION Q6H Y for SHORTNESS OF BREATH, #1 INHALER 05/01/17 Lubiprostone* (Amitiza*) 24 Mcg Capsule, 24 MCG PO BID, #60 CAP 05/01/17 Atorvastatin Calcium* (Atorvastatin Calcium*) 20 Mg Tablet, 20 MG PO QHS, #30 TAB 05/01/17 Diazepam* (Diazepam*) 5 Mg Tablet, 5 MG PO BID, TAB 07/19/16 Carvedilol* (Carvedilol*) 3.125 Mg Tablet, 3.125 MG PO DAILY, #60 TAB 07/19/16 Magnesium Oxide* (Mag-Oxide*) 400 Mg Tablet, 400 MG PO BID, TAB 07/19/16 Montelukast Sodium* (Montelukast Sodium*) 10 Mg Tablet, 10 MG PO QHS, #30 TAB 07/19/16 Paroxetine Hcl* (Paxil*) 40 Mg Tablet, 40 MG PO DAILY, TAB 07/19/16 Ramipril (Ramipril) 2.5 Mg Capsule, 2.5 MG PO DAILY, CAP 07/19/16 Aspirin (Low Dose Aspirin) 81 Mg Tablet.dr, 81 MG PO DAILY, #30 TAB 07/19/16 Salmeterol Xinaf/Fluticasone* (Advair*) 250-50 Diskus Inhaler, 1 INH INH BID, INH 09/27/14 Ferrous Sulfate* (Ferrous Sulfate*) 325 Mg Tabec, 325 MG PO BID, TAB 09/27/14 Follow-up Plan Follow-up with Dr. Breezy Harvey within 1-2 weeks Primary Care Provider Breezy Harvey MD Pending Labs Laboratory Tests Test 08/07/17 06:24 08/07/17 06:25 Sodium Level 137mmol/L (135-144) Potassium Level 4.1mmol/L (3.5-5.1) Chloride Level 103mmol/L (97-110) Carbon Dioxide Level 30mmol/L (21-31) Anion Gap 8 (8-16) Blood Urea Nitrogen 43mg/dl (7-20) Creatinine 1.20mg/dl (0.61-1.24) Glucose Level 92mg/dl (70-220) Calcium Level 8.2mg/dl (8.4-10.2) Phosphorus Level 3.5mg/dl (2.5-4.9) Troponin I 0.029ng/ml (0.00-0.12) B-Type Natriuretic Peptide 1690PG/ML (0-450) Triglycerides Level 292mg/dl (0-149) Cholesterol Level 123mg/dl (100-200) LDL Cholesterol, Calculated 28mg/dl HDL Cholesterol 37mg/dl (31-75) Cholesterol/HDL Ratio 3.3RATIO Amylase Level 70U/L (11-123) Lipase 85U/L (23-300) Thyroid Stimulating Hormone (TSH) 0.955MIU/L (0.465-4.680) White Blood Count 13.910^3/ul (4.8-10.8) Red Blood Count 3.5410^6/ul (4.70-6.10) Hemoglobin 10.7g/dl (14.0-18.0) Hematocrit 32.7% (42.0-52.0) Mean Corpuscular Volume 92.4fl (82.0-101.0) Mean Corpuscular Hemoglobin 30.2pg (29.0-33.0) Mean Corpuscular Hemoglobin Concent 32.7g/dl (32.0-37.0) Red Cell Distribution Width 15.4% (11.5-14.5) Platelet Count 51583^3/UL (140-415) Mean Platelet Volume 10.2fl (7.4-10.4) Neutrophils % 69.7% (39.0-77.0) Lymphocytes % 15.8% (15.0-51.0) Monocytes % 12.9% (0.0-11.0) Eosinophils % 0.2% (0.0-7.0) Basophils % 0.2% (0.0-2.0) Nucleated Red Blood Cells % 0.0/100WBC (0.0-0.0) Neutrophils # 9.710^3/ul (1.6-7.5) Lymphocytes # 2.210^3/ul (0.8-2.9) Monocytes # 1.810^3/ul (0.3-0.9) Eosinophils # 0.010^3/ul (0.0-0.5) Basophils # 0.010^3/ul (0.0-0.1) Nucleated Red Blood Cells # 0.010^3/ul (0.0-0.0) BREEZY HARVEY MD Aug 07, 2017 18:59
--- NOTE | 2017-08-10 15:56 | RADRPT ---
Vent Rate: 63 bpm RR Interval: 0 msec MI Interval: 174 msec QRS Duration: 106 msec QT Interval: 422 msec QTC Interval: 431 msec P-R-T [place]: 47 - 57 - 43 degrees Normal sinus rhythm Normal ECG Electronically Signed By: Arcadio Small [id number]
== END 2017-08-07 20:52 | disposition home or self-care (01) | DRG 190 ==
LOC: E/R 04:42 → TEL 07:58
PROVIDERS: ADMIT Internal Medicine; ATTEND Internal Medicine
DX: J44.1 Chronic obstructive pulmonary disease with (acute) exacerbation (principal); I50.33 Acute on chronic diastolic (congestive) heart failure; N17.9 Acute kidney failure, unspecified; F10.20 Alcohol dependence, uncomplicated; I10 Essential (primary) hypertension; B35.3 Tinea pedis; F03.90 Unspecified dementia, unspecified severity, without behavioral disturbance, psychotic disturbance, mood disturbance, and anxiety; E86.0 Dehydration; K43.9 Ventral hernia without obstruction or gangrene; Z72.0 Tobacco use; K59.00 Constipation, unspecified; F17.210 Nicotine dependence, cigarettes, uncomplicated; Z91.19 Patient's noncompliance with other medical treatment and regimen; E66.9 Obesity, unspecified; Z68.32 Body mass index [BMI] 32.0-32.9, adult; I25.10 Atherosclerotic heart disease of native coronary artery without angina pectoris; Z95.1 Presence of aortocoronary bypass graft; E78.5 Hyperlipidemia, unspecified; Z96.649 Presence of unspecified artificial hip joint; J20.9 Acute bronchitis, unspecified; R09.02 Hypoxemia
CPT/HCPCS: 36415; 36600; 71010; 74010; 74176; 80048; 80053; 80061; 81003; 82150; 82803; 83690; 83880; 84100; 84443; 84484; 85025; 85610; 85730; 93005; 93306; 94640; 94664; 96374; 96375; J1940; J1956; J2930; J3480; J7512

== ENCOUNTER 2017-09-17 15:50 | Inpatient (IN) | payer MEDICARE, BC ==
[~2017-09-17] VITALS: Ht 172.7 cm; Wt 94.0 kg
[~2017-09-17 15:50] MED LIST changes: -CARV3.1260 PO; +CLO15CR1 TOP; -FER325 PO; +FURO40TA4 PO; +METO-448 PO; +PRED20TA PO; +SULF1TAB31 PO
[2017-09-17] MEDS ORDERED: ASPIRIN 325 MG TAB PO STA (18:28)
--- NOTE | 2017-09-17 18:48 | ERD ---
ER Documentation Chief Complaint Chief Complaint cough sob x2 days on 2L oxygen NC HPI This 82-year-old male presents with cough and shortness of breath getting worse for 2 days. Denies chest pain. He is on 2 L of oxygen normally at home but is feeling more more short of breath he has a history of COPD. Denies fevers and chills. ROS All systems reviewed and are negative except as per history of present illness. Medications Home Meds Active Scripts Clotrimazole (Clotrim) 15 Gm Cr, 1 APPLIC TOP BID for 14 Days, #30 GM Prov:BREEZY FRIAS MD 08/07/17 Furosemide* (Furosemide*) 40 Mg Tablet, 40 MG PO DAILY for 30 Days, #30 TAB Prov:BREEZY FRIAS MD 08/07/17 Metoprolol Tartrate* (Lopressor*) 25 Mg Tab, 25 MG PO BID for 30 Days, #60 TAB Prov:BREEZY FRIAS MD 08/07/17 Reported Medications Prednisone* (Prednisone*) 20 Mg Tab, 20 MG PO DAILY, TAB 08/03/17 Tiotropium [place]* (Spiriva*) 18 Mcg Cap.w.dev, 1 CAP INHALATION DAILY, #30 CAP 05/01/17 Albuterol Sulfate* (Ventolin HFA*) 18 Gm Hfa.aer.ad, 2 PUFF INHALATION Q6H Y for SHORTNESS OF BREATH, #1 INHALER 05/01/17 Lubiprostone* (Amitiza*) 24 Mcg Capsule, 24 MCG PO BID, #60 CAP 05/01/17 Atorvastatin Calcium* (Atorvastatin Calcium*) 20 Mg Tablet, 20 MG PO QHS, #30 TAB 05/01/17 Diazepam* (Diazepam*) 5 Mg Tablet, 5 MG PO BID, TAB 07/19/16 Magnesium Oxide* (Mag-Oxide*) 400 Mg Tablet, 400 MG PO BID, TAB 07/19/16 Montelukast Sodium* (Montelukast Sodium*) 10 Mg Tablet, 10 MG PO QHS, #30 TAB 07/19/16 Paroxetine Hcl* (Paxil*) 40 Mg Tablet, 40 MG PO DAILY, TAB 07/19/16 Ramipril (Ramipril) 2.5 Mg Capsule, 2.5 MG PO DAILY, CAP 07/19/16 Aspirin (Low Dose Aspirin) 81 Mg Tablet.dr, 81 MG PO DAILY, #30 TAB 07/19/16 Salmeterol Xinaf/Fluticasone* (Advair*) 250-50 Diskus Inhaler, 1 INH INH BID, INH 09/27/14 Discontinued Reported Medications Sulfamethoxazole/Trimethoprim* (Bactrim Ds* Tablet) 1 Each Tablet, 1 TAB PO BID , TAB 08/03/17 Allergies Allergies: Coded Allergies: No Known Allergy (Unverified , 08/03/17) PMhx/Soc History of Surgery: Yes (hernia repair,stent placement) Anesthesia Reaction: No Hx Neurological Disorder: No Hx Respiratory Disorders: Yes (copd) Hx Cardiac Disorders: Yes (AR, STENTS X4, CARDIAC ARREST, HTN) Hx Psychiatric Problems: Yes (depression, anxiety) Hx Miscellaneous Medical Probl: No Hx Alcohol Use: No Hx Substance Use: No Hx Tobacco Use: Yes Physical Exam Vitals Vital Signs Date Time Temp Pulse Resp B/P Pulse Ox O2 Delivery O2 Flow Rate FiO2 09/17/17 19:56 79 20 150/69 100 Mask 8.0 09/17/17 19:36 86 28 96 Nasal Cannula 2.0 09/17/17 19:08 Nasal Cannula 2.0 09/17/17 19:08 98.8 70 22 143/66 95 Nasal Cannula 2.0 09/17/17 19:08 Nasal Cannula 2 09/17/17 15:52 98.1 83 18 154/67 95 Physical Exam Const: [] Moderate distress, increased work of breathing, obese Head: Atraumatic Eyes: Normal Conjunctiva ENT: Normal External Ears, Nose and Mouth. Neck: Full range of motion..~ No meningismus. Resp: Significant bilateral inspiratory and expiratory wheezes with decreased breath sounds throughout both lungs. Cardio: Regular rate and rhythm, no murmurs Abd: Soft, non tender, non distended. Normal bowel sounds Skin: No petechiae or rashes Ext: No cyanosis, or edema Neur: Awake and alert and oriented 3, no focal deficits Psych: Normal Mood and Affect Result Diagram: 09/17/17184909/17/171849 Results 24 hrs Laboratory Tests Test 09/17/17 18:50 White Blood Count 11.810^3/ul Red Blood Count 4.4110^6/ul Hemoglobin 13.1g/dl Hematocrit 40.5% Mean Corpuscular Volume 91.8fl Mean Corpuscular Hemoglobin 29.7pg Mean Corpuscular Hemoglobin Concent 32.3g/dl Red Cell Distribution Width 15.0% Platelet Count 66612^3/UL Mean Platelet Volume 10.3fl Neutrophils % 72.6% Lymphocytes % 14.4% Monocytes % 10.1% Eosinophils % 1.9% Basophils % 0.6% Nucleated Red Blood Cells % 0.0/100WBC Neutrophils # 8.610^3/ul Lymphocytes # 1.710^3/ul Monocytes # 1.210^3/ul Eosinophils # 0.210^3/ul Basophils # 0.110^3/ul Nucleated Red Blood Cells # 0.010^3/ul Urine Color STRAW Urine Clarity CLEAR Urine pH 5.0 Urine Specific [place] 1.011 Urine Ketones NEGATIVEmg/dL Urine Nitrite NEGATIVEmg/dL Urine Bilirubin NEGATIVEmg/dL Urine Urobilinogen NEGATIVEmg/dL Urine Leukocyte Esterase NEGATIVELeu/ul Urine Microscopic RBC 0/HPF Urine Microscopic WBC 0/HPF Urine Hemoglobin 1+mg/dL Urine Glucose NEGATIVEmg/dL Urine Total Protein 1+mg/dl Sodium Level 140mmol/L Potassium Level 4.7mmol/L Chloride Level 100mmol/L Carbon Dioxide Level 28mmol/L Anion Gap 17 Blood Urea Nitrogen 30mg/dl Creatinine 1.04mg/dl Glucose Level 108mg/dl Calcium Level 8.9mg/dl Troponin I 0.021ng/ml B-Type Natriuretic Peptide 784PG/ML Current Medications Medications (Trade) Dose Ordered Sig/Rolando Route PRN Reason Start Time Stop Time Status Last Admin Dose Admin Aspirin (Aspirin) 325 mg ONCE STAT PO 09/17/17 18:28 09/17/17 18:30 DC 09/17/17 19:00 Albuterol (Proventil 0.083% (Neb)) 10 mg ONCE STAT HHN 09/17/17 19:14 09/17/17 19:16 DC 09/17/17 19:25 Ipratropium [place] (Atrovent 0.02% (Neb)) 1 mg ONCE ONCE HHN 09/17/17 19:30 09/17/17 19:36 DC 09/17/17 19:25 Methylprednisolone Sodium Succinate (Solu-Medrol) 125 mg ONCE ONCE IV 09/17/17 20:00 09/17/17 20:01 DC 09/17/17 19:57 Albuterol (Proventil 0.083% (Neb)) 5 mg ONCE STAT HHN 09/17/17 22:01 09/17/17 22:02 DC Procedures/MDM Dyspnea secondary primarily to COPD exacerbation. Also has confabulation from CHF as evidenced by lower extremity edema and elevated BNP. Chest x-ray shows no signs of infection or pulmonary edema. Patient was given albuterol Atrovent nebulizer followed by another albuterol treatment in the emergency room as well as Solu-Medrol 20 mg of Lasix. Was also given aspirin 325 mg. Is going to be admitted to telemetry under Dr. Carter EKG interpretation: Normal sinus rhythm rate of 82, normal axis, inverted T- wave in lead III only, no ST or T-wave changes concerning for acute ischemia, normal intervals. job coaching interpretation: Normal sinus rhythm without arrhythmia Chest x-ray interpretation: I see no acute process. I see no pulmonary edema, no infiltrates, no pneumothorax, no fractures Departure Diagnosis: Primary Impression: COPD exacerbation Additional Impressions: CHF exacerbation Respiratory distress Leukocytosis, unspecified Condition: Serious PAMELA HURTADO DO Sep 17, 2017 18:48
[2017-09-17 19:10] LABS: BASOPHIL # 0.1 10^3/ul (0.0-0.1); BASOPHILS % 0.6 % (0.0-2.0); EOSINOPHILS # 0.2 10^3/ul (0.0-0.5); EOSINOPHILS % 1.9 % (0.0-7.0); HEMATOCRIT 40.5 % (42.0-52.0); HEMOGLOBIN 13.1 g/dl (14.0-18.0); LYMPHOCYTES # 1.7 10^3/ul (0.8-2.9); LYMPHOCYTES % 14.4 % (15.0-51.0); MEAN CORPUSCULAR HEMOGLOBIN 29.7 pg (29.0-33.0); MEAN CORPUSCULAR HGB CONC 32.3 g/dl (32.0-37.0); MEAN CORPUSCULAR VOLUME 91.8 fl (82.0-101.0); MEAN PLATELET VOLUME 10.3 fl (7.4-10.4); MONOCYTE # 1.2 10^3/ul (0.3-0.9); MONOCYTES % 10.1 % (0.0-11.0); NEUTROPHIL # 8.6 10^3/ul (1.6-7.5); NEUTROPHILS % 72.6 % (39.0-77.0); PLATELET COUNT 210 10^3/UL (140-415); RED BLOOD COUNT 4.41 10^6/ul (4.70-6.10); WHITE BLOOD COUNT 11.8 10^3/ul (4.8-10.8)
[2017-09-17] MEDS ORDERED: ALBUTEROL 0.083% (NEB) 2.5 MG/3 ML AMP HHN STA ×2 (19:14→22:01)
--- NOTE | 2017-09-17 19:21 | RADRPT ---
PROCEDURE: XR Chest. CLINICAL INDICATION: Chest pain . TECHNIQUE: Single frontal chest x-ray. COMPARISON: 08/06/2017 FINDINGS: The lungs are clear of acute infiltrates, edema, effusions, or masses.. The cardiomediastinal silho uette is unremarkable. The osseous structures are intact. IMPRESSION: No acute cardiopulmonary disease. RPTAT: RR .Venkatesh Morataya MD, MD Date Time Electronically viewed and signed by .Venkatesh Morataya MD, on 09/17/2017 19:21 .L/
[2017-09-17] MEDS ORDERED: IPRATROPIUM (NEB) 0.5 MG/2.5 ML AMP HHN ONE (19:30)
[2017-09-17 19:33] LABS: CALCIUM 8.9 mg/dl (8.4-10.2); CREATININE 1.04 mg/dl (0.61-1.24); POTASSIUM 4.7 mmol/L (3.5-5.1)
[2017-09-17 19:35] LABS: ADD UMIC YES; UR ASCORBIC ACID NEGATIVE (NEGATIVE); UR BILIRUBIN (Dip) NEGATIVE (NEGATIVE); UR BLOOD (Dip) 1+ mg/dL (NEGATIVE); UR CLARITY CLEAR (CLEAR); UR COLOR STRAW (YELLOW); UR GLUCOSE (Dip) NEGATIVE (NEGATIVE); UR KETONES (Dip) NEGATIVE (NEGATIVE); UR LEUKOCYTE ESTERASE (Dip) NEGATIVE Leu/ul (NEGATIVE); UR NITRITE (Dip) NEGATIVE (NEGATIVE); UR RBC 0 /HPF (0-5); UR SPECIFIC GRAVITY (Dip) 1.011 (1.003-1.030); UR TOTAL PROTEIN (Dip) 1+ mg/dl (NEGATIVE); UR UROBILINOGEN (Dip) NEGATIVE (NEGATIVE)
[2017-09-17 19:45] LABS: TROPONIN-I 0.021 ng/ml (0.00-0.12)
[2017-09-17] MEDS ORDERED: METHYLPREDNISOLONE 125 MG INJ IV ONE (20:00)
[2017-09-17] MEDS ORDERED: ACETAMINOPHEN 325 MG TAB PO PRN ×2 (22:30)
[2017-09-17] MEDS ORDERED: NACL 0.9% 3 ML SYG IV SCH (22:30)
[2017-09-17] MEDS ORDERED: FUROSEMIDE 20 MG INJ IV ONE (22:30)
[2017-09-17] MEDS ORDERED: ONDANSETRON 4 MG INJ IV PRN ×2 (22:30)
[2017-09-18] VITALS (15 sets, daily range): BP systolic 96–145; BP diastolic 51–64; PULSE 63–81; RESP 17–20; TEMP 98.3; Ht 172.7 cm; Wt 94.0 kg
[2017-09-18 01:58] LABS: TROPONIN-I 0.026 ng/ml (0.00-0.12)
[2017-09-18] MEDS: LEVALBUTEROL (NEB) 0.63 MG/3 ML AMP HHN SCH ×5 (02:17→19:46)
[2017-09-18 02:31] LABS: CK-MB 1.91 ng/ml (0.0-2.4)
[2017-09-18] MEDS: MAGNESIUM OXIDE 400 MG TAB PO SCH ×2 (09:00→21:11)
[2017-09-18] MEDS ORDERED: TIOTROPIUM 18 MCG CAPSULE INHA DEV INH SCH (09:00)
[2017-09-18] MEDS: SALMETEROL/FLUTICASONE 250/50 INHA INH SCH ×2 (09:00→21:09)
[2017-09-18] MEDS: LUBIPROSTONE 24 MCG CAP PO SCH ×2 (09:00→23:08)
[2017-09-18] MEDS: CLOTRIMAZOLE 1% 30 GM CR TOP SCH ×2 (09:00→21:11)
[2017-09-18] MEDS: PAROXETINE 20 MG TAB PO SCH (09:00)
[2017-09-18] MEDS: METHYLPREDNISOLONE 125 MG INJ IV SCH (09:12)
[2017-09-18] MEDS: ASPIRIN (EC) 81 MG TAB PO SCH (09:12)
[2017-09-18] MEDS: METOPROLOL 25 MG TAB PO SCH ×2 (09:13→21:17)
[2017-09-18] MEDS: FUROSEMIDE 40 MG TAB PO SCH (09:13)
[2017-09-18] MEDS: ENOXAPARIN 40 MG/0.4 ML SYG SC SCH (09:21)
[2017-09-18 09:25] LABS: BASOPHILS % 0.1 % (0.0-2.0); HEMATOCRIT 37.6 % (42.0-52.0); HEMOGLOBIN 12.2 g/dl (14.0-18.0); LYMPHOCYTES # 0.6 10^3/ul (0.8-2.9); LYMPHOCYTES % 6.8 % (15.0-51.0); MEAN CORPUSCULAR HEMOGLOBIN 29.5 pg (29.0-33.0); MEAN CORPUSCULAR HGB CONC 32.4 g/dl (32.0-37.0); MEAN CORPUSCULAR VOLUME 90.8 fl (82.0-101.0); MEAN PLATELET VOLUME 10.3 fl (7.4-10.4); MONOCYTE # 0.1 10^3/ul (0.3-0.9); MONOCYTES % 0.7 % (0.0-11.0); NEUTROPHIL # 8.7 10^3/ul (1.6-7.5); PLATELET COUNT 201 10^3/UL (140-415); RED BLOOD COUNT 4.14 10^6/ul (4.70-6.10); RED CELL DISTRIBUTION WIDTH 14.6 % (11.5-14.5); WHITE BLOOD COUNT 9.4 10^3/ul (4.8-10.8)
[2017-09-18 09:37] LABS: ALBUMIN 3.5 g/dl (3.3-4.9); ALBUMIN/GLOBULIN RATIO 1.09; BILIRUBIN,INDIRECT 0.2 mg/dl (0-1.1); BILIRUBIN,TOTAL 0.2 mg/dl (0.2-1.3); CALCIUM 9.7 mg/dl (8.4-10.2); CREATININE 1.1 mg/dl (0.61-1.24); POTASSIUM 4.9 mmol/L (3.5-5.1); TOTAL PROTEIN 6.7 g/dl (6.1-8.1)
[2017-09-18 09:43] LABS: CREATINE KINASE 27 IU/L (23-200)
[2017-09-18 09:48] LABS: CK-MB 1.87 ng/ml (0.0-2.4); TROPONIN-I < 0.012 ng/ml (0.00-0.12)
--- NOTE | 2017-09-18 16:59 | HP ---
Date/Time of Note Date/Time of Note DATE: 09/18/17 TIME: 16:56 Assessment/Plan VTE Prophylaxis VTE Prophylaxis Intervention: LMWH Lines/Catheters [facility] Saline Lock Urinary Cath still in place: No Assessment/Plan Problems: (1) COPD exacerbation Status: Acute Comment: No evidence of infection. Treat with solumedrol and nebulizers for now. Change albuterol to duoneb. (2) CHF exacerbation Status: Acute Comment: Mildly elevated troponins may be due to CHF . Will diurese gently with IV Lasix. Check 2d-Echo and consult cardiology. (3) Edema Status: Acute Comment: May be related to CHF but since patient has history of arm dvt , we' ll check venous dopplers . (4) Anxiety Status: Chronic Comment: Continue diazepam and paxil since he is stable on these medication. (5) Carotid stenosis Status: Chronic Comment: stable left carotid occlusion but recent increase in rignt carotid stenosis. Was supposed to get outpatient work up but patient has not been able to get to vascular surgery. HPI/ROS Admit Date/Time Admit Date/Time Sep 17, 2017 at 22:20 Hx of Present Illness Patient presents with progressive shortness of breath over several days. In ER , patient was noted to be hypoxic with mildly elevated troponins and BNP. Patient is admitted for COPD and CHF exacerbation, rule out WA. ROS Constitutional: no complaints Eyes: no complaints ENT: no complaints Respiratory: shortness of breath, wheezing Cardiovascular: edema, orthopenea Gastrointestinal: no complaints Genitourinary: no complaints Musculoskeletal: no complaints Neurologic: no complaints PMH/Family/Social Past Medical History Medical History: cancer (of prostate and colon.), congestive heart failure, deep vein thrombosis, GI bleed, hypertension, pancreatitis, other (COPD, Left carotid artery stenosis, right carotid occlusion, lumbar DDD, anxiety disorder.) Past Surgical History Past Surgical Hx: angioplasty, bowel resection, other (Hip ORIF 2013, ventral hernia repair 2015) Family History Significant Family History: no pertinent family hx Social History Alcohol Use: other (Episodic binging) Smoking Status: Current every day smoker Drug Use: none Exam/Review of Systems Vital Signs Vitals Vital Signs Date Time Temp Pulse Resp B/P Pulse Ox O2 Delivery O2 Flow Rate FiO2 09/18/17 16:33 81 09/18/17 16:20 98.3 19 107/53 94 11/21/17 13:51 Nasal Cannula 2.0 Intake and Output 09/17/17 09/17/17 09/18/17 15:00 23:00 07:00 Output Total 425 ml Balance -425 ml Exam Constitutional: alert, oriented Head: atraumatic, normocephalic Eyes: nl conjunctiva, nl sclera ENMT: mucosa pink and moist, nl external ears & nose Respiratory: clear to auscultation, normal air movement Cardiovascular: nl pulses, regular rate and rhythm Gastrointestinal: non-tender, soft Extremities: edema Labs Result Diagram: 09/18/1783709/18/17837 Medications Medications Current Medications Ondansetron HCl (Zofran Inj) 4 mg Q6H PRN IV NAUSEA AND/OR VOMITING; Start at 22:30 Methylprednisolone Sodium Succinate (Solu-Medrol) 60 mg DAILY IV Last administered on 09/18/17 09:12; Admin Dose 60 MG; Start 09/18/17 at 09:00 Acetaminophen (Tylenol Tab) 650 mg Q6H PRN PO PAIN LEVEL 1-3 OR FEVER; Start 09/17/17 at 22:30 Enoxaparin Sodium (Lovenox) 40 mg DAILY SC Last administered on 09/18/17 09: 21; Admin Dose 40 MG; Start 09/18/17 at 09:00 Clonidine (Catapres) 0.1 mg TID PRN PO sbp>170; Start 09/17/17 at 22:30 Aspirin (Halfprin) 81 mg DAILY PO Last administered on 09/18/17 09:12; Admin Dose 81 MG; Start 09/18/17 at 09:00 Atorvastatin Calcium (Lipitor) 20 mg QHS PO ; Start 09/18/17 at 21:00 Clotrimazole (Lotrimin Cr) 1 applic BID TOP ; Start 09/18/17 at 09:00 Furosemide (Lasix) 40 mg DAILY PO Last administered on 09/18/17 09:13; Admin Dose 40 MG; Start 09/18/17 at 09:00 Lubiprostone (Amitiza) 24 mcg BID PO ; Start 09/18/17 at 09:00 Magnesium Oxide (Mag-Ox 400) 400 mg BID PO ; Start 09/18/17 at 09:00 Metoprolol Tartrate (Lopressor) 25 mg BID PO Last administered on 09/18/17t 09 :13; Admin Dose 25 MG; Start 09/18/17 at 09:00 Montelukast Sodium (Singulair) 10 mg QHS PO ; Start 09/18/17 at 21:00 Paroxetine HCl (Paxil) 40 mg DAILY PO ; Start 09/18/17 at 09:00 Salmeterol Xinafoate/ Fluticasone (Advair 250/50 Diskus) 1 inh BID INH ; Start 09/18/17 at 09:00 Tiotropium [place] (Spiriva) 18 inh DAILY INH ; Start 09/18/17 at 09:00 BREEZY FRIAS MD Sep 18, 2017 16:59
[2017-09-18] MEDS ORDERED: DIAZEPAM 5 MG TAB PO PRN (21:00)
[2017-09-18] MEDS: ATORVASTATIN 20 MG TAB PO SCH (21:11)
[2017-09-18] MEDS: MONTELUKAST 10 MG TAB PO SCH (21:12)
[2017-09-18] MEDS ORDERED: FUROSEMIDE 40 MG INJ IV ONE (21:30)
--- NOTE | 2017-09-18 22:45 | RADRPT ---
PROCEDURE: US Lower extremity Venous. CLINICAL INDICATION: Bilateral lower extremity edema TECHNIQUE: Multiple sonographic images of the bilateral lower extremity deep venous system was obt ained utilizing grayscale, color-flow, compressive sonography and doppler imaging with augmentation. The images were reviewed on a PACS workstation. COMPARISON: None. FINDINGS: There is normal compressibility and flow within the bilateral common femoral, femoral , posterior ti bial and popliteal veins. RPTAT: AA IMPRESSION: No sonographic evidence for deep venous thrombosis. .Ottoniel Morse MD, MD Date Time Electronically viewed and signed by .Ottoniel Morse MD, MD on 09/18/2017 22:45 .S/
[2017-09-19] VITALS (11 sets, daily range): BP systolic 100–150; BP diastolic 50–67; PULSE 60–75; RESP 16–20
[2017-09-19] MEDS ORDERED: SOD CHLORIDE 0.9% 100 ML ONE (02:51)
[2017-09-19] MEDS ORDERED: IOHEXOL 300MG/ML 150 ML BTL ONE (02:51)
--- NOTE | 2017-09-19 03:32 | RADRPT ---
PROCEDURE: CTA Chest. CLINICAL INDICATION: Persistent hypoxia and dyspnea. TECHNIQUE: CT angiography of the chest, with axial, sagittal and coronal reformatted images. Auto mated dose exposure controls employed. The total exam CTDI equals 47.31 mGy and the total exam DLP e quals 836.24 mGy-cm. 100 cc Isovue 300 nonionic IV contrast were employed. COMPARISON: No prior studies are available for comparison. FINDINGS: Study is limited secondary to prominent systemic arterial phase and pulmonary venous phase. Otherwi se, no large central or proximal peripheral pulmonary emboli. Bilateral dependent atelectasis, right greater than left, with likely bronchial mucus plugging of th e posterior left costophrenic angles. Atelectasis at the medial aspect of the right lung base demons trates lobular features. Recommend follow-up to resolution to exclude an occult neoplasm. This measu res up to about 45 x 21 x 20 mm. No hilar or mediastinal adenopathy. The pleura and osseous structures unremarkable. The heart size is mildly enlarged. Reflux of contrast material into the superior aspect of the infer ior vena cava and hepatic veins is compatible with a degree of right heart failure. There is no evid ent pericardial effusion. Atherosclerotic calcifications in the thoracic aorta and coronary arteries. Likely calcific tendinosis in the lateral right supraspinatus over the right humeral head. Limited visualization of abdominal viscera is unremarkable. IMPRESSION: 1. Likely bronchial mucus plugging of the bilateral posterior costophrenic angles with associated at electasis. 2. Atelectasis at the medial right lung base demonstrates a lobular features, and recommend follow-u p to resolution to exclude underlying occult neoplasm. 3. Mild cardiomegaly with CT evidence of right heart failure. 4. No evident pericardial effusion. 5. No evident pulmonary emboli. RPTAT: UU Physician Ifrah Date Time Electronically viewed and signed by Physician Ifrah on 09/19/2017 03:31 RS/
[2017-09-19] MEDS: ALBUTEROL/IPRATROPIUM (NEB) 3 ML AMP HHN SCH ×3 (08:21→20:07)
[2017-09-19] MEDS: PAROXETINE 20 MG TAB PO SCH (08:49)
[2017-09-19] MEDS: ASPIRIN (EC) 81 MG TAB PO SCH (08:49)
[2017-09-19] MEDS: SALMETEROL/FLUTICASONE 250/50 INHA INH SCH ×2 (08:49→20:30)
[2017-09-19] MEDS: METHYLPREDNISOLONE 125 MG INJ IV SCH (08:49)
[2017-09-19] MEDS: LUBIPROSTONE 24 MCG CAP PO SCH ×2 (08:49→20:37)
[2017-09-19] MEDS: MAGNESIUM OXIDE 400 MG TAB PO SCH ×2 (08:49→20:32)
[2017-09-19] MEDS: FUROSEMIDE 40 MG TAB PO SCH (08:52)
[2017-09-19] MEDS: METOPROLOL 25 MG TAB PO SCH ×2 (08:52→20:34)
[2017-09-19] MEDS: ENOXAPARIN 40 MG/0.4 ML SYG SC SCH (08:58)
[2017-09-19 09:41] LABS: ABNORMAL IP MESSAGE 1; BASOPHILS % 0.1 % (0.0-2.0); EOSINOPHILS % 0.1 % (0.0-7.0); HEMATOCRIT 39.7 % (42.0-52.0); LYMPHOCYTES # 1.8 10^3/ul (0.8-2.9); LYMPHOCYTES % 10.8 % (15.0-51.0); MEAN CORPUSCULAR HEMOGLOBIN 29.5 pg (29.0-33.0); MEAN CORPUSCULAR HGB CONC 32.7 g/dl (32.0-37.0); MEAN CORPUSCULAR VOLUME 90.2 fl (82.0-101.0); MEAN PLATELET VOLUME 10.2 fl (7.4-10.4); MONOCYTE # 1.6 10^3/ul (0.3-0.9); MONOCYTES % 9.3 % (0.0-11.0); NEUTROPHIL # 13.4 10^3/ul (1.6-7.5); NEUTROPHILS % 79.2 % (39.0-77.0); PLATELET COUNT 233 10^3/UL (140-415); POSITIVE DIFF @See below; RED CELL DISTRIBUTION WIDTH 14.7 % (11.5-14.5); WHITE BLOOD COUNT 16.9 10^3/ul (4.8-10.8)
[2017-09-19] MEDS: CLOTRIMAZOLE 1% 30 GM CR TOP SCH ×2 (09:46→20:32)
[2017-09-19] MEDS: TIOTROPIUM 18 MCG CAPSULE INHA DEV INH SCH (09:47)
[2017-09-19 10:05] LABS: CALCIUM 9.7 mg/dl (8.4-10.2); CREATININE 1.27 mg/dl (0.61-1.24); POTASSIUM 4.2 mmol/L (3.5-5.1)
--- NOTE | 2017-09-19 14:33 | CONS ---
Date/Time of Note Date/Time of Note DATE: 09/19/17 TIME: 14:29 Assessment/Plan Assessment/Plan Chief Complaint/Hosp Course Impression: Acute on chonic COPD exacerbation- sig wheeze on exam and plugging noted on ct scan - cont mgmt per primary/pulm with neg treatments - avoid nonselective bb Chronic diastolic HF- elevated bnp, but likely chronic issue. do not suspect to be causing acute sob, no pulm edema on cxr/ct - cont diuretic as needed - bp control Low level trop- repeat wnl, no sig elevation. no wma on echo and no chest pain/ ekg changes - cont cad rf modification CAD hx- remote stent 2007, 2009. no current pain - asa/statin Problems: Consultation Date/Type/Reason Admit Date/Time Sep 17, 2017 at 22:20 Initial Consult Date 09/19/2017 Type of Consultation: Cardiology Reason for Consultation Elevated Troponin Referring Provider: BREEZY FRIAS MD 24 HR Interval Summary Free Text/Dictation HPI: pt is an 82 yo. man with h/o of COPD and CAD. reports progressive dyspnea since last sunday. states was working in the yard, breaking down some wood and after noticed increase sob. states sob continued with activity and at rest. states had to use his home o2 and felt slightly better. but overall did not get better and presented to [facility]. denies any chest pain, palpitations, dizziness, palpitations. no pnd, orthopnea, edema. pt denies fevers, chills sweats. ROS: All other systems negative Past Medical History Medical History: congestive heart failure, coronary artery disease, GI bleed, high cholesterol, hypertension COPD Past Surgical History Past Surgical Hx: angioplasty, bowel resection Social History Smoking Status: Current every day smoker Drug Use: none Exam/Review of Systems Vital Signs Vitals Vital Signs Date Time Temp Pulse Resp B/P Pulse Ox O2 Delivery O2 Flow Rate FiO2 09/19/17 14:00 92 18 93 Nasal Cannula 3.0 09/19/17 12:04 98.5 150/67 Intake and Output 09/18/17 09/18/17 09/19/17 14:59 22:59 06:59 Intake Total 1200 ml 350 ml Output Total 1625 ml 600 ml Balance -425 ml -250 ml Exam Constitutional: alert, obese, oriented Psych: no complaints Head: normocephalic Eyes: EOMI, nl conjunctiva ENMT: nl external ears & nose, nl lips & teeth Neck: jvd (8) Respiratory: clear to auscultation, wheezing Cardiovascular: nl pulses, regular rate and rhythm, No S3 Gastrointestinal: soft, tender Musculoskeletal: nl extremities to inspection Extremities: normal pulses Neurological: [employer] II-XII intact Results Result Diagram: 09/19/17 0854 09/19/17 0854 Results 24 hrs Laboratory Tests Test 09/19/17 08:54 White Blood Count 16.9 #H Red Blood Count 4.40 L Hemoglobin 13.0 L Hematocrit 39.7 L Mean Corpuscular Volume 90.2 Mean Corpuscular Hemoglobin 29.5 Mean Corpuscular Hemoglobin Concent 32.7 Red Cell Distribution Width 14.7 H Platelet Count 233 Mean Platelet Volume 10.2 Neutrophils % 79.2 H Lymphocytes % 10.8 L Monocytes % 9.3 Eosinophils % 0.1 Basophils % 0.1 Nucleated Red Blood Cells % 0.0 Neutrophils # 13.4 H Lymphocytes # 1.8 Monocytes # 1.6 H Eosinophils # 0.0 Basophils # 0.0 Nucleated Red Blood Cells # 0.0 Sodium Level 141 Potassium Level 4.2 Chloride Level 97 Carbon Dioxide Level 34 H Anion Gap 14 Blood Urea Nitrogen 47 #H Creatinine 1.27 H Glucose Level 103 Calcium Level 9.7 B-Type Natriuretic Peptide 1200 H Medications Medications Current Medications Ondansetron HCl (Zofran Inj) 4 mg Q6H PRN IV NAUSEA AND/OR VOMITING; Start at 22:30 Methylprednisolone Sodium Succinate (Solu-Medrol) 60 mg DAILY IV Last administered on 09/19/17 08:49; Admin Dose 60 MG; Start 09/18/17 at 09:00 Acetaminophen (Tylenol Tab) 650 mg Q6H PRN PO PAIN LEVEL 1-3 OR FEVER; Start 09/17/17 at 22:30 Enoxaparin Sodium (Lovenox) 40 mg DAILY SC Last administered on 09/19/17 08: 58; Admin Dose 40 MG; Start 09/18/17 at 09:00 Clonidine (Catapres) 0.1 mg TID PRN PO sbp>170; Start 09/17/17 at 22:30 Aspirin (Halfprin) 81 mg DAILY PO Last administered on 09/19/17 08:49; Admin Dose 81 MG; Start 09/18/17 at 09:00 Atorvastatin Calcium (Lipitor) 20 mg QHS PO Last administered on 09/18/17 21: 11; Admin Dose 20 MG; Start 09/18/17 at 21:00 Clotrimazole (Lotrimin Cr) 1 applic BID TOP Last administered on 09/19/17 09: 46; Admin Dose 1 APPLIC; Start 09/18/17 at 09:00 Furosemide (Lasix) 40 mg DAILY PO Last administered on 09/19/17 08:52; Admin Dose 40 MG; Start 09/18/17 at 09:00 Lubiprostone (Amitiza) 24 mcg BID PO Last administered on 09/19/17 08:49; Admin Dose 24 MCG; Start 09/18/17 at 09:00 Magnesium Oxide (Mag-Ox 400) 400 mg BID PO Last administered on 09/19/17 08: 49; Admin Dose 400 MG; Start 09/18/17 at 09:00 Metoprolol Tartrate (Lopressor) 25 mg BID PO Last administered on 09/19/17 08 :52; Admin Dose 25 MG; Start 09/18/17 at 09:00 Montelukast Sodium (Singulair) 10 mg QHS PO Last administered on 09/18/17 21: 12; Admin Dose 10 MG; Start 09/18/17 at 21:00 Paroxetine HCl (Paxil) 40 mg DAILY PO Last administered on 09/19/17 08:49; Admin Dose 40 MG; Start 09/18/17 at 09:00 Salmeterol Xinafoate/ Fluticasone (Advair 250/50 Diskus) 1 inh BID INH Last administered on 09/19/17 08:49; Admin Dose 1 INH; Start 09/18/17 at 09:00 Diazepam (Valium) 5 mg BID PRN PO ANXIETY Last administered on 09/18/17 21:11 ; Admin Dose 5 MG; Start 09/18/17 at 21:00 Tiotropium [place] (Spiriva) 1 inh DAILY INH Last administered on 09/19/17 09 :47; Admin Dose 1 INH; Start 09/19/17 at 09:30 Procedures Procedures CXR report reviewed in EMR EKG reviewed: NSR, nonspecific inf q waves. no change from previous on review BAKARI YOUGN Sep 19, 2017 14:33
--- NOTE | 2017-09-19 14:44 | RADRPT ---
Echocardiogram Report Patient Name: FARHAT WATERMAN Gender: Male Date: 1935 Study Date: 19-Sep-2017 Packing Floor Worker: Em Karimi RUST Location: [id number] Ref. Physician: BREEZY FRIAS Quality: Technically Difficult Study Procedures: Transthoracic echocardiogram with complete 2D, M-Mode, and doppler examination. Indications: Congestive Heart Failure. 2D/M Mode Doppler Measurement Value Normal Ranges Measurement Value Normal Ranges LVIDd 2D 5.3 3.5 - 5.6 cm AV Peak Man[place] 1.3 m/sec LVIDs 2D 3.5 2.1 - 4.1 cm AV Peak PG 6.5 mmHg LVPWd 2D 1.2 0.6 - 1.1 cm LVOT Peak [place] 0.7 m/sec IVSd 2D 1.2 0.6 - 1.1 cm LVOT Peak PG 1.9 mmHg AoR Diam 2D 3.1 2.0 - 3.7 cm MV E Peak Man[place] 0.7 m/sec EDV 2D 137.6 cm3 MV A Peak [place] 1.0 m/sec ESV 2D 43.0 cm3 MV E/A 0.7 LA Dimen 2D 3.2 2.3 - 4.0 cm MV Decel Time 220 msec MV Decel [place] 3 MV E/A 0.7 TR Peak Manolo 2.6 m/sec TR Peak PG 27.5 mmHg RVSP 31.0 mmHg Findings Left Ventricle: Normal left ventricular systolic function. Normal left ventricular cavity size. Mild concentric left ventricular hypertrophy. Ejection fraction is visually estimated at 5055 %. Tissue Doppler/Mitral Doppler indices are consistent with impaired relaxation (Stage I diastolic dysfunction). These segments of the LV are akinetic inferior base segment. Right Ventricle: Normal right ventricular size. Normal right ventricular systolic function. Left Atrium: The left atrium is normal in size. Right Atrium: The right atrium is normal in size. Mitral Valve: Mitral valve leaflets appear mildly thickened. Mild mitral annular calcification. Trace mitral regurgitation. Aortic Valve: No significant aortic stenosis or insufficiency. Aortic cusps appear mildly calcified. Trileaflet aortic valve. Tricuspid Valve: Normal appearance of the tricuspid valve. Right ventricular systolic pressure is consistent with mild pulmonary hypertension. Estimated peak PA systolic pressure 31 mmHg. There is mild tricuspid regurgitation. Pulmonic Valve: Pulmonic valve not well visualized. Pericardium: Normal pericardium with no significant pericardial effusion. Aorta: Normal aortic root. IVC: Normal size and normal respiratory collapse consistent with normal right atrial pressure. Conclusions Normal left ventricular systolic function. Normal left ventricular cavity size. Mild concentric left ventricular hypertrophy. Ejection fraction is visually estimated at 50-55 %. Tissue Doppler/Mitral Doppler indices are consistent with impaired relaxation (Stage I diastolic dysfunction). These segments of the LV are akinetic inferior base segment. Normal right ventricular size. Normal right ventricular systolic function. The left atrium is normal in size. No significant aortic stenosis or insufficiency. Aortic cusps appear mildly calcified. Trileaflet aortic valve. Normal appearance of the tricuspid valve. Right ventricular systolic pressure is consistent with mild pulmonary hypertension. Estimated peak PA systolic pressure 31 mmHg. There is mild tricuspid regurgitation. Normal pericardium with no significant pericardial effusion. Normal aortic root. Normal size and normal respiratory collapse consistent with normal right atrial pressure. No Vegetation, masses, or thrombi seen. Electronically Signed By: Jorge Cormier 19-Sep-2017 14:43:27 -0800 Patient Name: FARHAT WATERMAN Study Date: 19-Sep-2017 [id number]
--- NOTE | 2017-09-19 15:43 | RADRPT ---
PROCEDURE: US Carotids. CLINICAL INDICATION: bruit TECHNIQUE: Multiple sonographic of the carotid bifurcation region and vertebral arteries were obta ined utilizing abbasi scale, duplex and color-flow imaging. The images were reviewed on a PACS worksta tion. COMPARISON: 07/20/2016 FINDINGS: Evaluation of the right carotid bifurcation region reveals severe calcific atherosclerotic disease. Evaluation of the left carotid bifurcation region reveals moderate calcific atherosclerotic disease. There is antegrade flow within the vertebral arteries bilaterally. RIGHT CAROTID MEASUREMENTS: Right CCA, ICA and ECA are occluded. LEFT CAROTID MEASUREMENTS: Common Carotid Azeoyw74.1 (cm/sec) Internal Carotid Artery - wvprxbab93.9 (cm/sec) Internal Carotid Artery - skw411.1 (cm/sec) Internal Carotid Artery - kroxii251.5 (cm/sec) Internal Carotid/Common Carotid3.2 RPTAT: KK IMPRESSION: Occluded right common, external and internal carotid arteries. 50-69% stenosis at the left mid and distal internal carotid artery Validated velocity measurements with angiographic measurements, velocity criteria are extrapolated f rom diameter data as defined by the Society of Radiologists in Ultrasound Consensus Conference Radio logy 2003; 229;340-346. This study does indirectly reference the measurement of the distal ICA diam eter as the denominator for stenosis measurement. Normal antegrade flow in the vertebral arteries bilaterally. Physician Elías Date Time Electronically viewed and signed by Physician Elías on 09/19/2017 15:42 NH/
--- NOTE | 2017-09-19 16:54 | PN ---
Date/Time of Note Date/Time of Note DATE: 09/19/17 TIME: 16:49 Assessment/Plan VTE Prophylaxis VTE Prophylaxis Intervention: LMWH Lines/Catheters [facility] Saline Lock Urinary Cath still in place: No Assessment/Plan Problems: (1) COPD exacerbation Status: Acute Comment: Add mucomyst for mucus plugging . Also resume mucinex bid. (2) CHF exacerbation Status: Chronic Comment: Agree with cardiology assessment. Will change lasix back to oral form. (3) Anxiety Status: Chronic Comment: Temporarily increase diazepam back to 10mg for increased anxiety. (4) Carotid stenosis Status: Chronic Comment: Carotid dopplers showed unchanged stenosis from last year. Previous vascular surgery consult with Dr. Carballo noted that while dopplers showed high velocity on the left carotid, the neck CTA showed lesion of only 40%. I will allow renal recovery time from the recent chest CTA before repeating the carotid CTA this year. Subjective 24 Hr Interval Summary Free Text/Dictation Patient's son reports that he has been more anxious lately and especially when he had episode of difficulty breathing yesterday. Patient used to be on 10mg of diazepam bid for his anxiety and we had slowly cut back on it to 5mg qhs over the past year. Exam/Review of Systems Vital Signs Vitals Vital Signs Date Time Temp Pulse Resp B/P Pulse Ox O2 Delivery O2 Flow Rate FiO2 09/19/17 16:18 75 09/19/17 16:09 98.1 16 125/60 93 09/19/17 14:00 Nasal Cannula 3.0 Intake and Output 09/18/17 09/18/17 09/19/17 15:00 23:00 07:00 Intake Total 1200 ml 350 ml Output Total 1625 ml 600 ml Balance -425 ml -250 ml Exam Constitutional: alert, oriented Head: atraumatic, normocephalic Eyes: nl conjunctiva, nl sclera ENMT: mucosa pink and moist, nl external ears & nose Neck: supple Respiratory: clear to auscultation Cardiovascular: edema, regular rate and rhythm Gastrointestinal: non-tender, soft Musculoskeletal: nl extremities to inspection Results Result Diagram: 09/19/17 0854 09/19/17 0854 Results 24 hrs Laboratory Tests Test 09/19/17 08:54 White Blood Count 16.9 #H Red Blood Count 4.40 L Hemoglobin 13.0 L Hematocrit 39.7 L Mean Corpuscular Volume 90.2 Mean Corpuscular Hemoglobin 29.5 Mean Corpuscular Hemoglobin Concent 32.7 Red Cell Distribution Width 14.7 H Platelet Count 233 Mean Platelet Volume 10.2 Neutrophils % 79.2 H Lymphocytes % 10.8 L Monocytes % 9.3 Eosinophils % 0.1 Basophils % 0.1 Nucleated Red Blood Cells % 0.0 Neutrophils # 13.4 H Lymphocytes # 1.8 Monocytes # 1.6 H Eosinophils # 0.0 Basophils # 0.0 Nucleated Red Blood Cells # 0.0 Sodium Level 141 Potassium Level 4.2 Chloride Level 97 Carbon Dioxide Level 34 H Anion Gap 14 Blood Urea Nitrogen 47 #H Creatinine 1.27 H Glucose Level 103 Calcium Level 9.7 B-Type Natriuretic Peptide 1200 H Medications Medications Current Medications Ondansetron HCl (Zofran Inj) 4 mg Q6H PRN IV NAUSEA AND/OR VOMITING; Start at 22:30 Methylprednisolone Sodium Succinate (Solu-Medrol) 60 mg DAILY IV Last administered on 09/19/17 08:49; Admin Dose 60 MG; Start 09/18/17 at 09:00 Acetaminophen (Tylenol Tab) 650 mg Q6H PRN PO PAIN LEVEL 1-3 OR FEVER; Start 09/17/17 at 22:30 Enoxaparin Sodium (Lovenox) 40 mg DAILY SC Last administered on 09/19/17 08: 58; Admin Dose 40 MG; Start 09/18/17 at 09:00 Clonidine (Catapres) 0.1 mg TID PRN PO sbp>170; Start 09/17/17 at 22:30 Aspirin (Halfprin) 81 mg DAILY PO Last administered on 09/19/17 08:49; Admin Dose 81 MG; Start 09/18/17 at 09:00 Atorvastatin Calcium (Lipitor) 20 mg QHS PO Last administered on 09/18/17 21: 11; Admin Dose 20 MG; Start 09/18/17 at 21:00 Clotrimazole (Lotrimin Cr) 1 applic BID TOP Last administered on 09/19/17 09: 46; Admin Dose 1 APPLIC; Start 09/18/17 at 09:00 Furosemide (Lasix) 40 mg DAILY PO Last administered on 09/19/17 08:52; Admin Dose 40 MG; Start 09/18/17 at 09:00 Lubiprostone (Amitiza) 24 mcg BID PO Last administered on 09/19/17 08:49; Admin Dose 24 MCG; Start 09/18/17 at 09:00 Magnesium Oxide (Mag-Ox 400) 400 mg BID PO Last administered on 09/19/17 08: 49; Admin Dose 400 MG; Start 09/18/17 at 09:00 Metoprolol Tartrate (Lopressor) 25 mg BID PO Last administered on 09/19/17 08 :52; Admin Dose 25 MG; Start 09/18/17 at 09:00 Montelukast Sodium (Singulair) 10 mg QHS PO Last administered on 09/18/17 21: 12; Admin Dose 10 MG; Start 09/18/17 at 21:00 Paroxetine HCl (Paxil) 40 mg DAILY PO Last administered on 09/19/17 08:49; Admin Dose 40 MG; Start 09/18/17 at 09:00 Salmeterol Xinafoate/ Fluticasone (Advair 250/50 Diskus) 1 inh BID INH Last administered on 09/19/17 08:49; Admin Dose 1 INH; Start 09/18/17 at 09:00 Diazepam (Valium) 5 mg BID PRN PO ANXIETY Last administered on 09/18/17 21:11 ; Admin Dose 5 MG; Start 09/18/17 at 21:00 Tiotropium [place] (Spiriva) 1 inh DAILY INH Last administered on 09/19/17 09 :47; Admin Dose 1 INH; Start 09/19/17 at 09:30 BREEZY FRIAS MD Sep 19, 2017 16:54
--- NOTE | 2017-09-19 18:55 | CONS ---
DATE OF ADMISSION: 09/17/2017 DATE OF CONSULTATION: 09/19/2017 REASON FOR CONSULTATION: Shortness of breath. Thank you, Dr. Harvey, for this consultation. HISTORY OF PRESENT ILLNESS: This is an 82-year-old gentleman with extensive tobacco history, contin ues to smoke 1 pack per day, who presents with several-day history of increasing cough, congestion, shortness of breath, chest tightness, but no nausea, no vomiting, no fever, no chills, no hemoptysis , hematemesis. The patient states he has had home oxygen for the last 5 years but does not use it. He does not use his inhalers on a regular basis either. He states he is not interested in quitting smoking at present. PAST MEDICAL HISTORY: 1. Coronary artery disease with stent placement. 2. COPD. 3. Continued tobacco use. MEDICATIONS: Per chart. ALLERGIES: NONE. SOCIAL HISTORY: Positive tobacco history, prior alcohol history. PHYSICAL EXAMINATION: GENERAL: Elderly-appearing gentleman, awake, alert, oriented, comfortable at rest, talking in full and complete sentences. VITAL SIGNS: Currently afebrile. Pulse is 70, blood pressure 125/60, O2 saturation 96% on 3 L nasa l cannula. NECK: Supple. No JVD or lymphadenopathy. CARDIAC: S1, S2, no added sounds or murmurs. CHEST: Diminished air entry bilaterally. ABDOMEN: Soft, nontender. No guarding, no rebound. EXTREMITIES: No cyanosis, clubbing, edema. NEUROLOGIC: Generalized weakness. LABORATORY DATA: White count 16.9, hemoglobin 13.0, platelets 233. BUN 47, creatinine 1.27. DIAGNOSTIC DATA: Chest x-ray was performed and demonstrated no acute cardiopulmonary disease. CT pulmonary angiogram demonstrated mild patchy infiltrates and atelectasis with mucus plugging. Lower extremity Dopplers were negative for deep vein thrombosis. IMPRESSION AND PLAN: 1. Chronic obstructive pulmonary disease with acute exacerbation. 2. Likely acute coronary event. 3. Ongoing tobacco use. The patient will require: 1. Bronchodilators. 2. Supplemental O2. 3. Steroid taper. 4. Outpatient pulmonary function testing. 5. Revision of medications. Dictated By: LINDA BURT MD SV/LYRIC Conf#: [id number] DID#: [id number] CC: BREEZY HARVYE MD;*End*
[2017-09-19] MEDS: ACETYLCYSTEINE 20% 4 ML VIAL NEB SCH (20:13)
[2017-09-19] MEDS: ATORVASTATIN 20 MG TAB PO SCH (20:32)
[2017-09-19] MEDS: MONTELUKAST 10 MG TAB PO SCH (20:32)
[2017-09-19] MEDS: GUAIFENESIN LA 600 MG TABSR PO SCH (20:32)
[2017-09-19] MEDS ORDERED: DIAZEPAM 5 MG TAB PO PRN (22:00)
[2017-09-20] VITALS (11 sets, daily range): BP systolic 106–142; BP diastolic 55–68; PULSE 56–73; RESP 16–19
[2017-09-20] MEDS: ACETYLCYSTEINE 20% 4 ML VIAL NEB SCH ×4 (02:00→19:37)
[2017-09-20] MEDS: ALBUTEROL/IPRATROPIUM (NEB) 3 ML AMP HHN SCH ×3 (08:23→19:37)
[2017-09-20 08:51] LABS: CALCIUM 9.5 mg/dl (8.4-10.2); CREATININE 1.15 mg/dl (0.61-1.24); POTASSIUM 4.2 mmol/L (3.5-5.1)
[2017-09-20] MEDS: LUBIPROSTONE 24 MCG CAP PO SCH ×2 (09:00→20:20)
[2017-09-20] MEDS: PAROXETINE 20 MG TAB PO SCH (09:27)
[2017-09-20] MEDS: METOPROLOL 25 MG TAB PO SCH ×2 (09:28→20:22)
[2017-09-20] MEDS: MAGNESIUM OXIDE 400 MG TAB PO SCH ×2 (09:28→20:21)
[2017-09-20] MEDS: FUROSEMIDE 40 MG TAB PO SCH (09:28)
[2017-09-20] MEDS: GUAIFENESIN LA 600 MG TABSR PO SCH ×2 (09:28→20:20)
[2017-09-20] MEDS: ASPIRIN (EC) 81 MG TAB PO SCH (09:28)
[2017-09-20] MEDS: TIOTROPIUM 18 MCG CAPSULE INHA DEV INH SCH (09:29)
[2017-09-20] MEDS: CLOTRIMAZOLE 1% 30 GM CR TOP SCH ×2 (09:29→20:22)
[2017-09-20] MEDS: METHYLPREDNISOLONE 125 MG INJ IV SCH (09:29)
[2017-09-20] MEDS: SALMETEROL/FLUTICASONE 250/50 INHA INH SCH ×2 (09:29→20:20)
[2017-09-20] MEDS: ENOXAPARIN 40 MG/0.4 ML SYG SC SCH (09:30)
--- NOTE | 2017-09-20 10:23 | CONS ---
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 do not suspect to be causing acute sob, no pulm edema on cxr/ct -Withhold diuretic given upturning BUN. - bp control Low level trop- repeat wnl, no sig elevation. Inferobasal wall motion echo likely old from previous CAD. No indication of acute disease. no chest pain/ ekg changes - cont cad rf modification CAD hx- remote stent 2007, 2009. no current pain - asa/statin PVD: Patient with occluded left carotid, 5069% right ICA stenosis. However astigmatic denies any dizziness right now or recent stroke. Continue aspirin statin and re-eval as outpatient. Problems: Consultation Date/Type/Reason Admit Date/Time Sep 17, 2017 at 22:20 Initial Consult Date 09/19/2017 Type of Consultation: Cardio Reason for Consultation Dyspnea Referring Provider: BREEZY FRIAS MD 24 HR Interval Summary Free Text/Dictation Patient seen this morning. Eating breakfast. No complaints. States he has not been walking. Denies any chest pain or shortness of breath at rest. Continues on O2. There with cough. No significant phlegm. No hemoptysis. Telemetry reviewed: Normal sinus rhythm no events. Detailed Summary Eyes: no complaints ENT: no complaints Respiratory: cough Cardiovascular: no complaints Gastrointestinal: no complaints Exam/Review of Systems Vital Signs Vitals Vital Signs Date Time Temp Pulse Resp B/P Pulse Ox O2 Delivery O2 Flow Rate FiO2 09/20/17 08:34 89 22 99 Nasal Cannula 3.0 09/20/17 08:06 98.5 142/59 Intake and Output 09/19/17 09/19/17 09/20/17 14:59 22:59 06:59 Intake Total 1000 ml 600 ml Output Total 1200 ml 650 ml Balance -200 ml -50 ml Exam Constitutional: alert, oriented Psych: nl mood/affect, no complaints Head: normocephalic Eyes: nl conjunctiva, nl sclera ENMT: nl external ears & nose, nl nasal mucosa & septum Neck: non-tender, supple, No jvd Respiratory: crackles/rales, wheezing Cardiovascular: nl pulses, regular rate and rhythm, systolic murmur Gastrointestinal: nl liver, spleen, non-tender, soft Musculoskeletal: nl extremities to inspection Extremities: normal pulses Neurological: FINISHER PLATE II-XII intact, nl mental status, nl speech, nl strength Results Result Diagram: 09/19/17 0854 09/20/17 0751 Results 24 hrs Laboratory Tests Test 09/20/17 07:51 Sodium Level 141 Potassium Level 4.2 Chloride Level 99 Carbon Dioxide Level 35 H Anion Gap 11 Blood Urea Nitrogen 54 H Creatinine 1.15 Glucose Level 114 Calcium Level 9.5 Medications Medications Current Medications Ondansetron HCl (Zofran Inj) 4 mg Q6H PRN IV NAUSEA AND/OR VOMITING; Start at 22:30 Methylprednisolone Sodium Succinate (Solu-Medrol) 60 mg DAILY IV Last administered on 09/20/17 09:29; Admin Dose 60 MG; Start 09/18/17 at 09:00 Acetaminophen (Tylenol Tab) 650 mg Q6H PRN PO PAIN LEVEL 1-3 OR FEVER; Start 09/17/17 at 22:30 Enoxaparin Sodium (Lovenox) 40 mg DAILY SC Last administered on 09/20/17 09: 30; Admin Dose 40 MG; Start 09/18/17 at 09:00 Clonidine (Catapres) 0.1 mg TID PRN PO sbp>170; Start 09/17/17 at 22:30 Aspirin (Halfprin) 81 mg DAILY PO Last administered on 09/20/17 09:28; Admin Dose 81 MG; Start 09/18/17 at 09:00 Atorvastatin Calcium (Lipitor) 20 mg QHS PO Last administered on 09/19/17 20: 32; Admin Dose 20 MG; Start 09/18/17 at 21:00 Clotrimazole (Lotrimin Cr) 1 applic BID TOP Last administered on 09/20/17 09: 29; Admin Dose 1 APPLIC; Start 09/18/17 at 09:00 Furosemide (Lasix) 40 mg DAILY PO Last administered on 09/20/17 09:28; Admin Dose 40 MG; Start 09/18/17 at 09:00 Lubiprostone (Amitiza) 24 mcg BID PO Last administered on 09/19/17 08:49; Admin Dose 24 MCG; Start 09/18/17 at 09:00 Magnesium Oxide (Mag-Ox 400) 400 mg BID PO Last administered on 09/20/17 09: 28; Admin Dose 400 MG; Start 09/18/17 at 09:00 Metoprolol Tartrate (Lopressor) 25 mg BID PO Last administered on 09/20/17 09 :28; Admin Dose 25 MG; Start 09/18/17 at 09:00 Montelukast Sodium (Singulair) 10 mg QHS PO Last administered on 09/19/17 20: 32; Admin Dose 10 MG; Start 09/18/17 at 21:00 Paroxetine HCl (Paxil) 40 mg DAILY PO Last administered on 09/20/17 09:27; Admin Dose 40 MG; Start 09/18/17 at 09:00 Salmeterol Xinafoate/ Fluticasone (Advair 250/50 Diskus) 1 inh BID INH Last administered on 09/20/17 09:29; Admin Dose 1 INH; Start 09/18/17 at 09:00 Tiotropium [place] (Spiriva) 1 inh DAILY INH Last administered on 09/20/17 09 :29; Admin Dose 1 INH; Start 09/19/17 at 09:30 Guaifenesin (Mucinex) 600 mg BID PO Last administered on 09/20/17 09:28; Admin Dose 600 MG; Start 09/19/17 at 21:00 Diazepam (Valium) 10 mg BID PRN PO ANXIETY; Start 09/19/17 at 22:[address] report reviewed 1. Likely bronchial mucus plugging of the bilateral posterior costophrenic angles with associated atelectasis. 2. Atelectasis at the medial right lung base demonstrates a lobular features, and recommend follow-up to resolution to exclude underlying occult neoplasm. 3. Mild cardiomegaly with CT evidence of right heart failure. 4. No evident pericardial effusion. 5. No evident pulmonary emboli. Carotid ultrasound report reviewed in [facility] Sep 20, 2017 10:23
--- NOTE | 2017-09-20 13:20 | CONS ---
Date/Time of Note Date/Time of Note DATE: 09/20/17 TIME: 13:19 Consult Date/Type/Reason Admit Date/Time Sep 17, 2017 at 22:20 Initial Consult Date Type of Consultation: Pulm Ordering Provider: BREEZY FRIAS MD Subjective Comfortable, breathing better. Objective Vital Signs Date Time Temp Pulse Resp B/P Pulse Ox O2 Delivery O2 Flow Rate FiO2 09/20/17 12:13 56 09/20/17 11:58 98.2 17 124/59 93 09/20/17 08:34 Nasal Cannula 3.0 Intake and Output 09/19/17 09/19/17 09/20/17 15:00 23:00 07:00 Intake Total 1000 ml 600 ml Output Total 1200 ml 650 ml Balance -200 ml -50 ml Exam PHYSICAL EXAMINATION: GENERAL: Elderly-appearing gentleman, awake, alert, oriented, comfortable at rest, talking in full and complete sentences. VITAL SIGNS: As above. NECK: Supple. No JVD or lymphadenopathy. CARDIAC: S1, S2, no added sounds or murmurs. CHEST: Diminished air entry bilaterally. ABDOMEN: Soft, nontender. No guarding, no rebound. EXTREMITIES: No cyanosis, clubbing, edema. NEUROLOGIC: Generalized weakness. Results/Medications Result Diagram: 09/19/17 0854 09/20/17 0751 Results 24 hrs Laboratory Tests Test 09/20/17 07:51 Sodium Level 141 Potassium Level 4.2 Chloride Level 99 Carbon Dioxide Level 35 H Anion Gap 11 Blood Urea Nitrogen 54 H Creatinine 1.15 Glucose Level 114 Calcium Level 9.5 Medications Current Medications Ondansetron HCl (Zofran Inj) 4 mg Q6H PRN IV NAUSEA AND/OR VOMITING; Start at 22:30 Methylprednisolone Sodium Succinate (Solu-Medrol) 60 mg DAILY IV Last administered on 09/20/17 09:29; Admin Dose 60 MG; Start 09/18/17 at 09:00 Acetaminophen (Tylenol Tab) 650 mg Q6H PRN PO PAIN LEVEL 1-3 OR FEVER; Start 09/17/17 at 22:30 Enoxaparin Sodium (Lovenox) 40 mg DAILY SC Last administered on 09/20/17 09: 30; Admin Dose 40 MG; Start 09/18/17 at 09:00 Clonidine (Catapres) 0.1 mg TID PRN PO sbp>170; Start 09/17/17 at 22:30 Aspirin (Halfprin) 81 mg DAILY PO Last administered on 09/20/17 09:28; Admin Dose 81 MG; Start 09/18/17 at 09:00 Atorvastatin Calcium (Lipitor) 20 mg QHS PO Last administered on 09/19/17 20: 32; Admin Dose 20 MG; Start 09/18/17 at 21:00 Clotrimazole (Lotrimin Cr) 1 applic BID TOP Last administered on 09/20/17 09: 29; Admin Dose 1 APPLIC; Start 09/18/17 at 09:00 Lubiprostone (Amitiza) 24 mcg BID PO Last administered on 09/19/17 08:49; Admin Dose 24 MCG; Start 09/18/17 at 09:00 Magnesium Oxide (Mag-Ox 400) 400 mg BID PO Last administered on 09/20/17 09: 28; Admin Dose 400 MG; Start 09/18/17 at 09:00 Metoprolol Tartrate (Lopressor) 25 mg BID PO Last administered on 09/20/17 09 :28; Admin Dose 25 MG; Start 09/18/17 at 09:00 Montelukast Sodium (Singulair) 10 mg QHS PO Last administered on 09/19/17 20: 32; Admin Dose 10 MG; Start 09/18/17 at 21:00 Paroxetine HCl (Paxil) 40 mg DAILY PO Last administered on 09/20/17 09:27; Admin Dose 40 MG; Start 09/18/17 at 09:00 Salmeterol Xinafoate/ Fluticasone (Advair 250/50 Diskus) 1 inh BID INH Last administered on 09/20/17 09:29; Admin Dose 1 INH; Start 09/18/17 at 09:00 Tiotropium [place] (Spiriva) 1 inh DAILY INH Last administered on 09/20/17 09 :29; Admin Dose 1 INH; Start 09/19/17 at 09:30 Guaifenesin (Mucinex) 600 mg BID PO Last administered on 09/20/17 09:28; Admin Dose 600 MG; Start 09/19/17 at 21:00 Diazepam (Valium) 10 mg BID PRN PO ANXIETY; Start 09/19/17 at 22:00 Assessment/Plan Chief Complaint/Hosp Course IMPRESSION AND PLAN: 1. Chronic obstructive pulmonary disease with acute exacerbation. 2. Doubt acute coronary event. 3. Ongoing tobacco use. The patient will require: 1. Bronchodilators. 2. Supplemental O2. 3. Steroid taper. 4. Outpatient pulmonary function testing. 5. Out patient PSG r/o CIRO. Problems: LINDA BURT MD, [facility] Sep 20, 2017 13:20
--- NOTE | 2017-09-20 13:23 | PN ---
Date/Time of Note Date/Time of Note DATE: 09/20/17 TIME: 13:16 Assessment/Plan VTE Prophylaxis VTE Prophylaxis Intervention: LMWH Lines/Catheters IV [facility]from [facility] Saline Lock Urinary Cath still in place: No Assessment/Plan Problems: (1) COPD exacerbation Status: Acute Comment: improving gradually. Will start steroid taper. Continue duoneb with mucomyst nebulizer treatments as well as Mucinex for mucus plug seen on chest CT. Patient instructed again to cut down on smoking. (2) CHF exacerbation Status: Chronic Comment: Resume low dose oral lasix. Continue betablocker and aspirin. (3) Anxiety Status: Chronic Comment: improved on higher diazepam dose and paroxetine. (4) Carotid stenosis Status: Chronic Comment: high grade lesion on left carotid but stable compared to previous carotids doppler. Subjective 24 Hr Interval Summary Free Text/Dictation Patient feels better. No complaints. Exam/Review of Systems Vital Signs Vitals Vital Signs Date Time Temp Pulse Resp B/P Pulse Ox O2 Delivery O2 Flow Rate FiO2 09/20/17 12:13 56 09/20/17 11:58 98.2 17 124/59 93 09/20/17 08:34 Nasal Cannula 3.0 Intake and Output 09/19/17 09/19/17 09/20/17 15:00 23:00 07:00 Intake Total 1000 ml 600 ml Output Total 1200 ml 650 ml Balance -200 ml -50 ml Exam Constitutional: alert, oriented Head: atraumatic, normocephalic ENMT: mucosa pink and moist, nl external ears & nose Respiratory: other (rare wheezing, bilateral rhonchi) Cardiovascular: regular rate and rhythm Gastrointestinal: non-tender, soft Extremities: normal pulses Results Result Diagram: 09/19/17 0854 09/20/17 0751 Results 24 hrs Laboratory Tests Test 09/20/17 07:51 Sodium Level 141 Potassium Level 4.2 Chloride Level 99 Carbon Dioxide Level 35 H Anion Gap 11 Blood Urea Nitrogen 54 H Creatinine 1.15 Glucose Level 114 Calcium Level 9.5 Medications Medications Current Medications Ondansetron HCl (Zofran Inj) 4 mg Q6H PRN IV NAUSEA AND/OR VOMITING; Start at 22:30 Methylprednisolone Sodium Succinate (Solu-Medrol) 60 mg DAILY IV Last administered on 09/20/17t 09:29; Admin Dose 60 MG; Start 09/18/17 at 09:00 Acetaminophen (Tylenol Tab) 650 mg Q6H PRN PO PAIN LEVEL 1-3 OR FEVER; Start 09/17/17 at 22:30 Enoxaparin Sodium (Lovenox) 40 mg DAILY SC Last administered on 09/20/17 09: 30; Admin Dose 40 MG; Start 09/18/17 at 09:00 Clonidine (Catapres) 0.1 mg TID PRN PO sbp>170; Start 09/17/17 at 22:30 Aspirin (Halfprin) 81 mg DAILY PO Last administered on 09/20/17 09:28; Admin Dose 81 MG; Start 09/18/17 at 09:00 Atorvastatin Calcium (Lipitor) 20 mg QHS PO Last administered on 09/19/17 20: 32; Admin Dose 20 MG; Start 09/18/17 at 21:00 Clotrimazole (Lotrimin Cr) 1 applic BID TOP Last administered on 09/20/17 09: 29; Admin Dose 1 APPLIC; Start 09/18/17 at 09:00 Lubiprostone (Amitiza) 24 mcg BID PO Last administered on 09/19/17 08:49; Admin Dose 24 MCG; Start 09/18/17 at 09:00 Magnesium Oxide (Mag-Ox 400) 400 mg BID PO Last administered on 09/20/17 09: 28; Admin Dose 400 MG; Start 09/18/17 at 09:00 Metoprolol Tartrate (Lopressor) 25 mg BID PO Last administered on 09/20/17 09 :28; Admin Dose 25 MG; Start 09/18/17 at 09:00 Montelukast Sodium (Singulair) 10 mg QHS PO Last administered on 09/19/17 20: 32; Admin Dose 10 MG; Start 09/18/17 at 21:00 Paroxetine HCl (Paxil) 40 mg DAILY PO Last administered on 09/20/17 09:27; Admin Dose 40 MG; Start 09/18/17 at 09:00 Salmeterol Xinafoate/ Fluticasone (Advair 250/50 Diskus) 1 inh BID INH Last administered on 09/20/17 09:29; Admin Dose 1 INH; Start 09/18/17 at 09:00 Tiotropium [place] (Spiriva) 1 inh DAILY INH Last administered on 09/20/17 09 :29; Admin Dose 1 INH; Start 09/19/17 at 09:30 Guaifenesin (Mucinex) 600 mg BID PO Last administered on 09/20/17 09:28; Admin Dose 600 MG; Start 09/19/17 at 21:00 Diazepam (Valium) 10 mg BID PRN PO ANXIETY; Start 09/19/17 at 22:00 BREEZY FRIAS MD Sep 20, 2017 13:23
[2017-09-20] MEDS: METHYLPREDNISOLONE 40 MG INJ IV SCH (20:20)
[2017-09-20] MEDS: MONTELUKAST 10 MG TAB PO SCH (20:21)
[2017-09-20] MEDS: ATORVASTATIN 20 MG TAB PO SCH (20:21)
[2017-09-21] VITALS (12 sets, daily range): BP systolic 100–130; BP diastolic 53–65; PULSE 55–67; RESP 16–19
[2017-09-21] MEDS: ACETYLCYSTEINE 20% 4 ML VIAL NEB SCH ×4 (01:47→21:10)
[2017-09-21] MEDS: ALBUTEROL/IPRATROPIUM (NEB) 3 ML AMP HHN SCH ×4 (01:47→21:00)
[2017-09-21] MEDS ORDERED: FUROSEMIDE 40 MG INJ IV ONE (02:18)
[2017-09-21 07:45] LABS: CALCIUM 9.4 mg/dl (8.4-10.2); CREATININE 1.23 mg/dl (0.61-1.24); POTASSIUM 4.2 mmol/L (3.5-5.1)
--- NOTE | 2017-09-21 08:52 | PN ---
Date/Time of Note Date/Time of Note DATE: 09/21/17 TIME: 08:51 Assessment/Plan VTE Prophylaxis VTE Prophylaxis Intervention: LMWH Lines/Catheters IV [facility] Type (from [facility]): Saline Lock Urinary Cath still in place: No Assessment/Plan Assessment/Plan (1) COPD exacerbation Status: Acute Comment: improving gradually. Continue Solu-Medrol twice daily per pulmonary recommendation. Continue duoneb with mucomyst nebulizer treatments as well as Mucinex for mucus plug seen on chest CT. Patient instructed again to cut down on smoking. (2) CHF exacerbation Status: using acute on chronic Comment: Resume oral lasix . Continue betablocker and aspirin. (3) Anxiety Status: Chronic Comment: improved on higher diazepam dose and paroxetine. (4) Carotid stenosis Status: Chronic Comment: high grade lesion on left carotid but stable compared to previous carotids doppler. Subjective 24 Hr Interval Summary Free Text/Dictation patient had an episode of shortness of breath and wheezing last night at 2 AM requiring IV Lasix. Feeling better this morning. Exam/Review of Systems Vital Signs Vitals Vital Signs Date Time Temp Pulse Resp B/P Pulse Ox O2 Delivery O2 Flow Rate FiO2 09/21/17 08:41 55 09/21/17 08:39 18 95 Nasal Cannula 3.0 09/21/17 07:53 98.0 115/65 Intake and Output 09/20/17 09/20/17 09/21/17 15:00 23:00 07:00 Intake Total 1000 ml 600 ml Output Total 800 ml 850 ml Balance 200 ml -250 ml Exam Constitutional: alert, oriented Head: atraumatic, normocephalic Eyes: nl conjunctiva, nl sclera ENMT: mucosa pink and moist, nl external ears & nose Respiratory: other (Diffuse rhonchi, rare expiratory wheezing) Cardiovascular: regular rate and rhythm Gastrointestinal: non-tender, soft Musculoskeletal: nl extremities to inspection Results Result Diagram: 09/19/17 0854 09/21/17 0657 Results 24 hrs Laboratory Tests Test 09/21/17 06:57 Sodium Level 140 Potassium Level 4.2 Chloride Level 96 L Carbon Dioxide Level 38 H Anion Gap 10 Blood Urea Nitrogen 58 H Creatinine 1.23 Glucose Level 130 Calcium Level 9.4 Medications Medications Current Medications Ondansetron HCl (Zofran Inj) 4 mg Q6H PRN IV NAUSEA AND/OR VOMITING; Start at 22:30 Acetaminophen (Tylenol Tab) 650 mg Q6H PRN PO PAIN LEVEL 1-3 OR FEVER; Start 09/17/17 at 22:30 Enoxaparin Sodium (Lovenox) 40 mg DAILY SC Last administered on 09/20/17 09: 30; Admin Dose 40 MG; Start 09/18/17 at 09:00 Clonidine (Catapres) 0.1 mg TID PRN PO sbp>170; Start 09/17/17 at 22:30 Aspirin (Halfprin) 81 mg DAILY PO Last administered on 09/20/17 09:28; Admin Dose 81 MG; Start 09/18/17 at 09:00 Atorvastatin Calcium (Lipitor) 20 mg QHS PO Last administered on 09/20/17 20: 21; Admin Dose 20 MG; Start 09/18/17 at 21:00 Clotrimazole (Lotrimin Cr) 1 applic BID TOP Last administered on 09/20/17 09: 29; Admin Dose 1 APPLIC; Start 09/18/17 at 09:00 Lubiprostone (Amitiza) 24 mcg BID PO Last administered on 09/19/17 08:49; Admin Dose 24 MCG; Start 09/18/17 at 09:00 Magnesium Oxide (Mag-Ox 400) 400 mg BID PO Last administered on 09/20/17 20: 21; Admin Dose 400 MG; Start 09/18/17 at 09:00 Metoprolol Tartrate (Lopressor) 25 mg BID PO Last administered on 09/20/17 20 :22; Admin Dose 25 MG; Start 09/18/17 at 09:00 Montelukast Sodium (Singulair) 10 mg QHS PO Last administered on 09/20/17 20: 21; Admin Dose 10 MG; Start 09/18/17 at 21:00 Paroxetine HCl (Paxil) 40 mg DAILY PO Last administered on 09/20/17 09:27; Admin Dose 40 MG; Start 09/18/17 at 09:00 Salmeterol Xinafoate/ Fluticasone (Advair 250/50 Diskus) 1 inh BID INH Last administered on 09/20/17 20:20; Admin Dose 1 INH; Start 09/18/17 at 09:00 Tiotropium [place] (Spiriva) 1 inh DAILY INH Last administered on 09/20/17 09 :29; Admin Dose 1 INH; Start 09/19/17 at 09:30 Guaifenesin (Mucinex) 600 mg BID PO Last administered on 09/20/17 20:20; Admin Dose 600 MG; Start 09/19/17 at 21:00 Diazepam (Valium) 10 mg BID PRN PO ANXIETY; Start 09/19/17 at 22:00 Methylprednisolone Sodium Succinate (Solu-Medrol) 40 mg BID IV Last administered on 09/20/17 20:20; Admin Dose 40 MG; Start 09/20/17 at 21:00 Furosemide (Lasix) 40 mg DAILY PO ; Start 09/21/17 at 09:00 BREEZY FRIAS MD Sep 21, 2017 08:52
[2017-09-21] MEDS ORDERED: predniSONE 20 MG TAB PO SCH (09:00)
[2017-09-21] MEDS ORDERED: FUROSEMIDE 40 MG TAB PO SCH (09:00)
[2017-09-21] MEDS: CLOTRIMAZOLE 1% 30 GM CR TOP SCH ×2 (09:15→22:09)
[2017-09-21] MEDS: TIOTROPIUM 18 MCG CAPSULE INHA DEV INH SCH (09:15)
[2017-09-21] MEDS: SALMETEROL/FLUTICASONE 250/50 INHA INH SCH ×2 (09:15→21:48)
[2017-09-21] MEDS: PAROXETINE 20 MG TAB PO SCH (09:17)
[2017-09-21] MEDS: GUAIFENESIN LA 600 MG TABSR PO SCH ×2 (09:18→21:50)
[2017-09-21] MEDS: METHYLPREDNISOLONE 40 MG INJ IV SCH ×2 (09:18→21:49)
[2017-09-21] MEDS: MAGNESIUM OXIDE 400 MG TAB PO SCH ×2 (09:18→22:09)
[2017-09-21] MEDS: METOPROLOL 25 MG TAB PO SCH ×2 (09:18→21:00)
[2017-09-21] MEDS: ASPIRIN (EC) 81 MG TAB PO SCH (09:18)
[2017-09-21] MEDS: ENOXAPARIN 40 MG/0.4 ML SYG SC SCH (09:20)
[2017-09-21] MEDS: LUBIPROSTONE 24 MCG CAP PO SCH ×2 (09:28→21:00)
--- NOTE | 2017-09-21 11:19 | CONS ---
Date/Time of Note Date/Time of Note DATE: 09/21/17 TIME: 11:15 Consult Date/Type/Reason Admit Date/Time Sep 17, 2017 at 22:20 Type of Consultation: Pulm Ordering Provider: BREEZY FRIAS MD Subjective Increased congestion this morning. Objective Vital Signs Date Time Temp Pulse Resp B/P Pulse Ox O2 Delivery O2 Flow Rate FiO2 09/21/17 08:41 55 09/21/17 08:39 18 95 Nasal Cannula 3.0 09/21/17 07:53 98.0 115/65 Intake and Output 09/20/17 09/20/17 09/21/17 14:59 22:59 06:59 Intake Total 1000 ml 600 ml Output Total 800 ml 850 ml Balance 200 ml -250 ml Exam PHYSICAL EXAMINATION: GENERAL: Elderly-appearing gentleman, awake, alert, oriented, comfortable at rest, talking in full and complete sentences. VITAL SIGNS: As above. NECK: Supple. No JVD or lymphadenopathy. CARDIAC: S1, S2, no added sounds or murmurs. CHEST: Diminished air entry bilaterally. ABDOMEN: Soft, nontender. No guarding, no rebound. EXTREMITIES: No cyanosis, clubbing, edema. NEUROLOGIC: Generalized weakness. Results/Medications Result Diagram: 09/19/17 0854 09/21/17 0657 Results 24 hrs Laboratory Tests Test 09/21/17 06:57 Sodium Level 140 Potassium Level 4.2 Chloride Level 96 L Carbon Dioxide Level 38 H Anion Gap 10 Blood Urea Nitrogen 58 H Creatinine 1.23 Glucose Level 130 Calcium Level 9.4 Medications Current Medications Ondansetron HCl (Zofran Inj) 4 mg Q6H PRN IV NAUSEA AND/OR VOMITING; Start at 22:30 Acetaminophen (Tylenol Tab) 650 mg Q6H PRN PO PAIN LEVEL 1-3 OR FEVER; Start 09/17/17 at 22:30 Enoxaparin Sodium (Lovenox) 40 mg DAILY SC Last administered on 09/21/17 09: 20; Admin Dose 40 MG; Start 09/18/17 at 09:00 Clonidine (Catapres) 0.1 mg TID PRN PO sbp>170; Start 09/17/17 at 22:30 Aspirin (Halfprin) 81 mg DAILY PO Last administered on 09/21/17 09:18; Admin Dose 81 MG; Start 09/18/17 at 09:00 Atorvastatin Calcium (Lipitor) 20 mg QHS PO Last administered on 09/20/17 20: 21; Admin Dose 20 MG; Start 09/18/17 at 21:00 Clotrimazole (Lotrimin Cr) 1 applic BID TOP Last administered on 09/21/17 09: 15; Admin Dose 1 APPLIC; Start 09/18/17 at 09:00 Lubiprostone (Amitiza) 24 mcg BID PO Last administered on 09/21/17 09:28; Admin Dose 24 MCG; Start 09/18/17 at 09:00 Magnesium Oxide (Mag-Ox 400) 400 mg BID PO Last administered on 09/21/17 09: 18; Admin Dose 400 MG; Start 09/18/17 at 09:00 Metoprolol Tartrate (Lopressor) 25 mg BID PO Last administered on 09/21/17 09 :18; Admin Dose 25 MG; Start 09/18/17 at 09:00 Montelukast Sodium (Singulair) 10 mg QHS PO Last administered on 09/20/17 20: 21; Admin Dose 10 MG; Start 09/18/17 at 21:00 Paroxetine HCl (Paxil) 40 mg DAILY PO Last administered on 09/21/17 09:17; Admin Dose 40 MG; Start 09/18/17 at 09:00 Salmeterol Xinafoate/ Fluticasone (Advair 250/50 Diskus) 1 inh BID INH Last administered on 09/21/17 09:15; Admin Dose 1 INH; Start 09/18/17 at 09:00 Tiotropium [place] (Spiriva) 1 inh DAILY INH Last administered on 09/21/17 09 :15; Admin Dose 1 INH; Start 09/19/17 at 09:30 Guaifenesin (Mucinex) 600 mg BID PO Last administered on 09/21/17 09:18; Admin Dose 600 MG; Start 09/19/17 at 21:00 Diazepam (Valium) 10 mg BID PRN PO ANXIETY; Start 09/19/17 at 22:00 Methylprednisolone Sodium Succinate (Solu-Medrol) 40 mg BID IV Last administered on 09/21/17 09:18; Admin Dose 40 MG; Start 09/20/17 at 21:00 Furosemide (Lasix) 40 mg DAILY IV ; Start 09/22/17 at 09:00 Assessment/Plan Chief Complaint/Hosp Course IMPRESSION AND PLAN: 1. Chronic obstructive pulmonary disease with acute exacerbation. 2. Doubt acute coronary event. 3. Ongoing tobacco use. The patient will require: 1. Bronchodilators. 2. Supplemental O2. 3. Continue twice daily steroids. 4. Outpatient pulmonary function testing. 5. Out patient PSG r/o CIRO. 6. Change to IV Lasix. ABG and chest x-ray in a.m. Problems: LINDA BURT MD, [facility] Sep 21, 2017 11:19
[2017-09-21] MEDS: ATORVASTATIN 20 MG TAB PO SCH (21:49)
[2017-09-21] MEDS: MONTELUKAST 10 MG TAB PO SCH (22:54)
[2017-09-22] VITALS (13 sets, daily range): BP systolic 100–134; BP diastolic 52–63; PULSE 58–90; RESP 18–20
[2017-09-22] MEDS: ACETYLCYSTEINE 20% 4 ML VIAL NEB SCH ×2 (02:04→08:36)
[2017-09-22] MEDS: ALBUTEROL/IPRATROPIUM (NEB) 3 ML AMP HHN SCH ×3 (08:34→19:31)
[2017-09-22] MEDS: SALMETEROL/FLUTICASONE 250/50 INHA INH SCH ×2 (08:43→20:12)
[2017-09-22] MEDS: TIOTROPIUM 18 MCG CAPSULE INHA DEV INH SCH (08:43)
[2017-09-22 08:44] LABS: AADO2 Arterial 88.5 mmHg (7.0-24.0); Allen Test ACCEPTAB; Arterial Base Excess 6.2 mmol/L (-3.0-3); Arterial COHb 0.3 % (0.0-3.0); Arterial Fraction of Oxyhgb 92.1 % (93.0-99.0); Arterial HCO3 31.7 mmol/L (22.0-26.0); Arterial MetHb 0.1 % (0.0-1.5); Arterial Total Hemglobin 14.2 g/dl (12.0-18.0); MODE NASAL CANNULA
[2017-09-22] MEDS: METHYLPREDNISOLONE 40 MG INJ IV SCH (08:45)
[2017-09-22] MEDS: FUROSEMIDE 40 MG INJ IV SCH (08:45)
[2017-09-22] MEDS: LUBIPROSTONE 24 MCG CAP PO SCH ×2 (08:46→20:13)
[2017-09-22] MEDS: ASPIRIN (EC) 81 MG TAB PO SCH (08:46)
[2017-09-22] MEDS: ENOXAPARIN 40 MG/0.4 ML SYG SC SCH (08:47)
[2017-09-22] MEDS: PAROXETINE 20 MG TAB PO SCH (08:48)
[2017-09-22] MEDS: MAGNESIUM OXIDE 400 MG TAB PO SCH ×2 (08:48→20:15)
[2017-09-22] MEDS: GUAIFENESIN LA 600 MG TABSR PO SCH ×2 (08:48→20:13)
[2017-09-22] MEDS: METOPROLOL 25 MG TAB PO SCH ×2 (08:49→21:00)
[2017-09-22 09:00] LABS: CALCIUM 9.2 mg/dl (8.4-10.2); CREATININE 1.2 mg/dl (0.61-1.24); MAGNESIUM 2.2 mg/dl (1.7-2.5); PHOSPHORUS 5.1 mg/dl (2.5-4.9); POTASSIUM 4.4 mmol/L (3.5-5.1)
[2017-09-22] MEDS: CLOTRIMAZOLE 1% 30 GM CR TOP SCH ×2 (09:00→20:13)
--- NOTE | 2017-09-22 09:40 | RADRPT ---
PROCEDURE: XR Chest. CLINICAL INDICATION: Shortness of breath. TECHNIQUE: Single frontal view. COMPARISON: 09/17/2017. FINDINGS: There is mild atelectasis at the lung bases. The lungs are otherwise clear. The heart is enlarged. There is calcification in the aorta consistent with atherosclerosis. There is no pleural effusion. There is no pneumothorax. IMPRESSION: 1. Mild atelectasis at the lung bases. 2. Cardiomegaly and atherosclerosis. 3. Otherwise unremarkable chest radiograph. RPTAT: QQ .Benjamin Elliott MD, MD Date Time Electronically viewed and signed by .Benjamin Elliott MD, MD on 09/22/2017 09:40 .R/
[2017-09-22 10:02] LABS: BASOPHILS % 0.1 % (0.0-2.0); HEMATOCRIT 39.8 % (42.0-52.0); HEMOGLOBIN 13.5 g/dl (14.0-18.0); LYMPHOCYTES # 1.1 10^3/ul (0.8-2.9); MEAN CORPUSCULAR HEMOGLOBIN 29.9 pg (29.0-33.0); MEAN CORPUSCULAR HGB CONC 33.9 g/dl (32.0-37.0); MEAN CORPUSCULAR VOLUME 88.1 fl (82.0-101.0); MEAN PLATELET VOLUME 10.6 fl (7.4-10.4); MONOCYTE # 0.7 10^3/ul (0.3-0.9); NEUTROPHIL # 16.5 10^3/ul (1.6-7.5); PLATELET COUNT 218 10^3/UL (140-415); RED BLOOD COUNT 4.52 10^6/ul (4.70-6.10); RED CELL DISTRIBUTION WIDTH 14.9 % (11.5-14.5); WHITE BLOOD COUNT 18.5 10^3/ul (4.8-10.8)
--- NOTE | 2017-09-22 11:34 | CONS ---
Date/Time of Note Date/Time of Note DATE: 09/22/17 TIME: 11:33 Consult Date/Type/Reason Admit Date/Time Sep 17, 2017 at 22:20 Type of Consultation: Pulm Ordering Provider: BREEZY FRIAS MD Subjective Comfortable today. Objective Vital Signs Date Time Temp Pulse Resp B/P Pulse Ox O2 Delivery O2 Flow Rate FiO2 09/22/17 09:43 Nasal Cannula 3.0 09/22/17 08:39 72 20 98 09/22/17 07:47 98.1 119/57 Intake and Output 09/21/17 09/21/17 09/22/17 15:00 23:00 07:00 Intake Total 650 ml 200 ml Output Total 600 ml 300 ml Balance 50 ml -100 ml Exam PHYSICAL EXAMINATION: GENERAL: Elderly-appearing gentleman, awake, alert, oriented, comfortable at rest, talking in full and complete sentences. VITAL SIGNS: As above. NECK: Supple. No JVD or lymphadenopathy. CARDIAC: S1, S2, no added sounds or murmurs. CHEST: Diminished air entry bilaterally. ABDOMEN: Soft, nontender. No guarding, no rebound. EXTREMITIES: No cyanosis, clubbing, edema. NEUROLOGIC: Generalized weakness. Results/Medications Result Diagram: 09/22/17 0759 09/22/17 0759 Results 24 hrs Laboratory Tests Test 09/22/17 07:00 09/22/17 07:59 Blood Gas Specimen Source Blood arterial Arterial Blood Date Drawn 09/22/2017 8:38:05 AM Arterial Blood pH (Temp corrected) 7.431 Arterial Blood pCO2 (Temp correct) 48.7 H Arterial Blood pO2 (Temp corrected) 68.2 L Arterial Blood HCO3 31.7 H Arterial Blood Base Excess 6.2 H Arterial Blood Oxygen Saturation 92.5 L Van Test ACCEPTAB Arterial Blood Gas Puncture Site Right Radial Arterial Blood Carboxyhemoglobin 0.3 Arterial Blood Methemoglobin 0.1 Blood Gas A-a O2 Differential 88.5 H Oxyhemoglobin Percent 92.1 L Total Hemoglobin 14.2 Blood Gas Temperature 37.0 Blood Gas Modality NASAL CANNULA FiO2 30.0 Blood Gas Notified Whom MDA Blood Gas Notified Time 09/22/2017 8:44:44 AM White Blood Count 18.5 H Red Blood Count 4.52 L Hemoglobin 13.5 L Hematocrit 39.8 L Mean Corpuscular Volume 88.1 Mean Corpuscular Hemoglobin 29.9 Mean Corpuscular Hemoglobin Concent 33.9 Red Cell Distribution Width 14.9 H Platelet Count 218 Mean Platelet Volume 10.6 H Neutrophils % 89.0 H Lymphocytes % 6.0 L Monocytes % 4.0 Eosinophils % 0.0 Basophils % 0.1 Nucleated Red Blood Cells % 0.0 Neutrophils # 16.5 H Lymphocytes # 1.1 Monocytes # 0.7 Eosinophils # 0.0 Basophils # 0.0 Nucleated Red Blood Cells # 0.0 Sodium Level 138 Potassium Level 4.4 Chloride Level 95 L Carbon Dioxide Level 33 H Anion Gap 14 Blood Urea Nitrogen 64 H Creatinine 1.20 Glucose Level 131 Calcium Level 9.2 Phosphorus Level 5.1 H Magnesium Level 2.2 Medications Current Medications Ondansetron HCl (Zofran Inj) 4 mg Q6H PRN IV NAUSEA AND/OR VOMITING; Start at 22:30 Acetaminophen (Tylenol Tab) 650 mg Q6H PRN PO PAIN LEVEL 1-3 OR FEVER; Start 09/17/17 at 22:30 Enoxaparin Sodium (Lovenox) 40 mg DAILY SC Last administered on 09/22/17 08: 47; Admin Dose 40 MG; Start 09/18/17 at 09:00 Clonidine (Catapres) 0.1 mg TID PRN PO sbp>170; Start 09/17/17 at 22:30 Aspirin (Halfprin) 81 mg DAILY PO Last administered on 09/22/17 08:46; Admin Dose 81 MG; Start 09/18/17 at 09:00 Atorvastatin Calcium (Lipitor) 20 mg QHS PO Last administered on 09/21/17 21: 49; Admin Dose 20 MG; Start 09/18/17 at 21:00 Clotrimazole (Lotrimin Cr) 1 applic BID TOP Last administered on 09/22/17 09: 00; Admin Dose 1 APPLIC; Start 09/18/17 at 09:00 Lubiprostone (Amitiza) 24 mcg BID PO Last administered on 09/22/17 08:46; Admin Dose 24 MCG; Start 09/18/17 at 09:00 Magnesium Oxide (Mag-Ox 400) 400 mg BID PO Last administered on 09/22/17 08: 48; Admin Dose 400 MG; Start 09/18/17 at 09:00 Metoprolol Tartrate (Lopressor) 25 mg BID PO Last administered on 09/22/17 08 :49; Admin Dose 25 MG; Start 09/18/17 at 09:00 Montelukast Sodium (Singulair) 10 mg QHS PO Last administered on 09/21/17 22: 54; Admin Dose 10 MG; Start 09/18/17 at 21:00 Paroxetine HCl (Paxil) 40 mg DAILY PO Last administered on 09/22/17 08:48; Admin Dose 40 MG; Start 09/18/17 at 09:00 Salmeterol Xinafoate/ Fluticasone (Advair 250/50 Diskus) 1 inh BID INH Last administered on 09/22/17 08:43; Admin Dose 1 INH; Start 09/18/17 at 09:00 Tiotropium [place] (Spiriva) 1 inh DAILY INH Last administered on 09/22/17 08 :43; Admin Dose 1 INH; Start 09/19/17 at 09:30 Guaifenesin (Mucinex) 600 mg BID PO Last administered on 09/22/17 08:48; Admin Dose 600 MG; Start 09/19/17 at 21:00 Diazepam (Valium) 10 mg BID PRN PO ANXIETY; Start 09/19/17 at 22:00 Methylprednisolone Sodium Succinate (Solu-Medrol) 40 mg BID IV Last administered on 09/22/17 08:45; Admin Dose 40 MG; Start 09/20/17 at 21:00 Furosemide (Lasix) 40 mg DAILY IV Last administered on 09/22/17 08:45; Admin Dose 40 MG; Start 09/22/17 at 09:00 Assessment/Plan Chief Complaint/Hosp Course IMPRESSION AND PLAN: 1. Chronic obstructive pulmonary disease with acute exacerbation. 2. Doubt acute coronary event. 3. Ongoing tobacco use. 4. Persistent leukocytosis possibly exacerbated by steroids The patient will require: 1. Bronchodilators. 2. Supplemental O2. 3. Decrease steroids 4. Outpatient pulmonary function testing. 5. Out patient PSG r/o CIRO. 6. Change to IV Lasix. Chest x-ray unremarkable ABG stable. Consider DC planning once leukocytosis improves. Problems: [facility] Sep 22, 2017 11:34
--- NOTE | 2017-09-22 13:29 | PN ---
Date/Time of Note Date/Time of Note DATE: 09/22/17 TIME: 13:26 Assessment/Plan VTE Prophylaxis VTE Prophylaxis Intervention: LMWH Lines/Catheters IV Catheter Type (from Nrs): Saline Lock Urinary Cath still in place: No Assessment/Plan Problems: (1) COPD exacerbation Status: Acute Comment: improving on IV solumedrol . Continue steroid taper per Pulmonary. Start ambulation. (2) CHF exacerbation Status: Chronic Comment: Stable on IV lasix, will change to po lasix when patient ready for discharge from pulmonary standpoint. (3) Anxiety Status: Chronic Comment: stable on paroxetine and diazepam (4) Leukocytosis, unspecified Status: Acute Comment: probably due to steroid. Subjective 24 Hr Interval Summary Free Text/Dictation Awake and alert , feels like he's breathing better. Exam/Review of Systems Vital Signs Vitals Vital Signs Date Time Temp Pulse Resp B/P Pulse Ox O2 Delivery O2 Flow Rate FiO2 09/22/17 12:00 62 09/22/17 11:35 98.3 18 134/63 90 09/22/17 09:43 Nasal Cannula 3.0 Intake and Output 09/21/17 09/21/17 09/22/17 15:00 23:00 07:00 Intake Total 650 ml 200 ml Output Total 600 ml 300 ml Balance 50 ml -100 ml Exam Constitutional: alert, oriented Psych: nl mood/affect, no complaints Head: atraumatic, normocephalic ENMT: mucosa pink and moist, nl external ears & nose Respiratory: crackles/rales, wheezing Cardiovascular: regular rate and rhythm Gastrointestinal: non-tender, soft Musculoskeletal: nl extremities to inspection Results Result Diagram: 09/22/17 0759 09/22/17 0759 Results 24 hrs Laboratory Tests Test 09/22/17 07:00 09/22/17 07:59 Blood Gas Specimen Source Blood arterial Arterial Blood Date Drawn 09/22/2017 8:38:05 AM Arterial Blood pH (Temp corrected) 7.431 Arterial Blood pCO2 (Temp correct) 48.7 H Arterial Blood pO2 (Temp corrected) 68.2 L Arterial Blood HCO3 31.7 H Arterial Blood Base Excess 6.2 H Arterial Blood Oxygen Saturation 92.5 L Van Test ACCEPTAB Arterial Blood Gas Puncture Site Right Radial Arterial Blood Carboxyhemoglobin 0.3 Arterial Blood Methemoglobin 0.1 Blood Gas A-a O2 Differential 88.5 H Oxyhemoglobin Percent 92.1 L Total Hemoglobin 14.2 Blood Gas Temperature 37.0 Blood Gas Modality NASAL CANNULA FiO2 30.0 Blood Gas Notified Whom [facility] Blood Gas Notified Time 09/22/2017 8:44:44 AM White Blood Count 18.5 H Red Blood Count 4.52 L Hemoglobin 13.5 L Hematocrit 39.8 L Mean Corpuscular Volume 88.1 Mean Corpuscular Hemoglobin 29.9 Mean Corpuscular Hemoglobin Concent 33.9 Red Cell Distribution Width 14.9 H Platelet Count 218 Mean Platelet Volume 10.6 H Neutrophils % 89.0 H Lymphocytes % 6.0 L Monocytes % 4.0 Eosinophils % 0.0 Basophils % 0.1 Nucleated Red Blood Cells % 0.0 Neutrophils # 16.5 H Lymphocytes # 1.1 Monocytes # 0.7 Eosinophils # 0.0 Basophils # 0.0 Nucleated Red Blood Cells # 0.0 Sodium Level 138 Potassium Level 4.4 Chloride Level 95 L Carbon Dioxide Level 33 H Anion Gap 14 Blood Urea Nitrogen 64 H Creatinine 1.20 Glucose Level 131 Calcium Level 9.2 Phosphorus Level 5.1 H Magnesium Level 2.2 Medications Medications Current Medications Ondansetron HCl (Zofran Inj) 4 mg Q6H PRN IV NAUSEA AND/OR VOMITING; Start at 22:30 Acetaminophen (Tylenol Tab) 650 mg Q6H PRN PO PAIN LEVEL 1-3 OR FEVER; Start 09/17/17 at 22:30 Enoxaparin Sodium (Lovenox) 40 mg DAILY SC Last administered on 09/22/17 08: 47; Admin Dose 40 MG; Start 09/18/17 at 09:00 Clonidine (Catapres) 0.1 mg TID PRN PO sbp>170; Start 09/17/17 at 22:30 Aspirin (Halfprin) 81 mg DAILY PO Last administered on 09/22/17 08:46; Admin Dose 81 MG; Start 09/18/17 at 09:00 Atorvastatin Calcium (Lipitor) 20 mg QHS PO Last administered on 09/21/17 21: 49; Admin Dose 20 MG; Start 09/18/17 at 21:00 Clotrimazole (Lotrimin Cr) 1 applic BID TOP Last administered on 09/22/17 09: 00; Admin Dose 1 APPLIC; Start 09/18/17 at 09:00 Lubiprostone (Amitiza) 24 mcg BID PO Last administered on 09/22/17 08:46; Admin Dose 24 MCG; Start 09/18/17 at 09:00 Magnesium Oxide (Mag-Ox 400) 400 mg BID PO Last administered on 09/22/17 08: 48; Admin Dose 400 MG; Start 09/18/17 at 09:00 Metoprolol Tartrate (Lopressor) 25 mg BID PO Last administered on 09/22/17 08 :49; Admin Dose 25 MG; Start 09/18/17 at 09:00 Montelukast Sodium (Singulair) 10 mg QHS PO Last administered on 09/21/17 22: 54; Admin Dose 10 MG; Start 09/18/17 at 21:00 Paroxetine HCl (Paxil) 40 mg DAILY PO Last administered on 09/22/17 08:48; Admin Dose 40 MG; Start 09/18/17 at 09:00 Salmeterol Xinafoate/ Fluticasone (Advair 250/50 Diskus) 1 inh BID INH Last administered on 09/22/17 08:43; Admin Dose 1 INH; Start 09/18/17 at 09:00 Tiotropium [place] (Spiriva) 1 inh DAILY INH Last administered on 09/22/17 08 :43; Admin Dose 1 INH; Start 09/19/17 at 09:30 Guaifenesin (Mucinex) 600 mg BID PO Last administered on 09/22/17 08:48; Admin Dose 600 MG; Start 09/19/17 at 21:00 Diazepam (Valium) 10 mg BID PRN PO ANXIETY; Start 09/19/17 at 22:00 Furosemide (Lasix) 40 mg DAILY IV Last administered on 09/22/17 08:45; Admin Dose 40 MG; Start 09/22/17 at 09:00 Methylprednisolone Sodium Succinate (Solu-Medrol) 40 mg DAILY IV ; Start at 09:00 BREEZY FRIAS MD Sep 22, 2017 13:29
[2017-09-22] MEDS: ATORVASTATIN 20 MG TAB PO SCH (20:13)
[2017-09-22] MEDS: MONTELUKAST 10 MG TAB PO SCH (20:14)
[2017-09-23] VITALS (11 sets, daily range): BP systolic 99–118; BP diastolic 54–72; PULSE 59–69; RESP 16–19
[2017-09-23 06:25] LABS: ABNORMAL IP MESSAGE 1; BASOPHILS % 0.1 % (0.0-2.0); EOSINOPHILS % 0.1 % (0.0-7.0); HEMATOCRIT 38.6 % (42.0-52.0); HEMOGLOBIN 12.8 g/dl (14.0-18.0); LYMPHOCYTES # 2.2 10^3/ul (0.8-2.9); MEAN CORPUSCULAR HEMOGLOBIN 29.6 pg (29.0-33.0); MEAN CORPUSCULAR HGB CONC 33.2 g/dl (32.0-37.0); MEAN CORPUSCULAR VOLUME 89.4 fl (82.0-101.0); MEAN PLATELET VOLUME 10.4 fl (7.4-10.4); MONOCYTE # 2.2 10^3/ul (0.3-0.9); MONOCYTES % 12.1 % (0.0-11.0); NEUTROPHIL # 13.6 10^3/ul (1.6-7.5); NEUTROPHILS % 74.5 % (39.0-77.0); PLATELET COUNT 202 10^3/UL (140-415); POSITIVE DIFF @See below; RED BLOOD COUNT 4.32 10^6/ul (4.70-6.10); RED CELL DISTRIBUTION WIDTH 15.1 % (11.5-14.5); WHITE BLOOD COUNT 18.3 10^3/ul (4.8-10.8)
[2017-09-23 06:52] LABS: CALCIUM 8.9 mg/dl (8.4-10.2); CREATININE 1.16 mg/dl (0.61-1.24); POTASSIUM 3.8 mmol/L (3.5-5.1)
[2017-09-23] MEDS: ALBUTEROL/IPRATROPIUM (NEB) 3 ML AMP HHN SCH ×3 (08:00→19:34)
[2017-09-23] MEDS: SALMETEROL/FLUTICASONE 250/50 INHA INH SCH ×2 (09:06→20:56)
[2017-09-23] MEDS: TIOTROPIUM 18 MCG CAPSULE INHA DEV INH SCH (09:07)
[2017-09-23] MEDS: FUROSEMIDE 40 MG INJ IV SCH (09:07)
[2017-09-23] MEDS: METHYLPREDNISOLONE 40 MG INJ IV SCH (09:10)
[2017-09-23] MEDS: MAGNESIUM OXIDE 400 MG TAB PO SCH ×2 (09:10→20:57)
[2017-09-23] MEDS: GUAIFENESIN LA 600 MG TABSR PO SCH ×2 (09:10→20:57)
[2017-09-23] MEDS: LUBIPROSTONE 24 MCG CAP PO SCH ×2 (09:10→20:57)
[2017-09-23] MEDS: METOPROLOL 25 MG TAB PO SCH ×2 (09:10→21:00)
[2017-09-23] MEDS: ASPIRIN (EC) 81 MG TAB PO SCH (09:10)
[2017-09-23] MEDS: PAROXETINE 20 MG TAB PO SCH (09:11)
[2017-09-23] MEDS: ENOXAPARIN 40 MG/0.4 ML SYG SC SCH (09:11)
[2017-09-23] MEDS: CLOTRIMAZOLE 1% 30 GM CR TOP SCH ×2 (09:11→20:57)
--- NOTE | 2017-09-23 10:48 | DS ---
Date/Time of Note Date/Time of Note DATE: 09/23/17 TIME: 10:48 Discharge Summary Admission/Discharge Info Admit Date/Time Sep 17, 2017 at 22:20 Discharge Date/Time Hx of Present Illness Patient presents with progressive shortness of breath over several days. In ER , patient was noted to be hypoxic with mildly elevated troponins and BNP. Patient is admitted for COPD and CHF exacerbation, rule out [place]. Home Meds Active Scripts Clotrimazole (Clotrim) 15 Gm Cr, 1 APPLIC TOP BID for 14 Days, #30 GM Prov:BREEZY HARVEY MD 08/07/17 Furosemide* (Furosemide*) 40 Mg Tablet, 40 MG PO DAILY for 30 Days, #30 TAB Prov:BREEZY HARVEY MD 08/07/17 Metoprolol Tartrate* (Lopressor*) 25 Mg Tab, 25 MG PO BID for 30 Days, #60 TAB Prov:BREEZY HARVEY MD 08/07/17 Reported Medications Prednisone* (Prednisone*) 20 Mg Tab, 20 MG PO DAILY, TAB 08/03/17 Tiotropium [place]* (Spiriva*) 18 Mcg Cap.w.dev, 1 CAP INHALATION DAILY, #30 CAP 05/01/17 Albuterol Sulfate* (Ventolin HFA*) 18 Gm Hfa.aer.ad, 2 PUFF INHALATION Q6H Y for SHORTNESS OF BREATH, #1 INHALER 05/01/17 Lubiprostone* (Amitiza*) 24 Mcg Capsule, 24 MCG PO BID, #60 CAP 05/01/17 Atorvastatin Calcium* (Atorvastatin Calcium*) 20 Mg Tablet, 20 MG PO QHS, #30 TAB 05/01/17 Diazepam* (Diazepam*) 5 Mg Tablet, 5 MG PO BID, TAB 07/19/16 Magnesium Oxide* (Mag-Oxide*) 400 Mg Tablet, 400 MG PO BID, TAB 07/19/16 Montelukast Sodium* (Montelukast Sodium*) 10 Mg Tablet, 10 MG PO QHS, #30 TAB 07/19/16 Paroxetine Hcl* (Paxil*) 40 Mg Tablet, 40 MG PO DAILY, TAB 07/19/16 Ramipril (Ramipril) 2.5 Mg Capsule, 2.5 MG PO DAILY, CAP 07/19/16 Aspirin (Low Dose Aspirin) 81 Mg Tablet.dr, 81 MG PO DAILY, #30 TAB 07/19/16 Salmeterol Xinaf/Fluticasone* (Advair*) 250-50 Diskus Inhaler, 1 INH INH BID, INH 09/27/14 Discontinued Reported Medications Sulfamethoxazole/Trimethoprim* (Bactrim Ds* Tablet) 1 Each Tablet, 1 TAB PO BID , TAB 08/03/17 Primary Care Provider Breezy Harvey MD Pending Labs Laboratory Tests Test 09/23/17 06:03 White Blood Count 18.310^3/ul (4.8-10.8) Red Blood Count 4.3210^6/ul (4.70-6.10) Hemoglobin 12.8g/dl (14.0-18.0) Hematocrit 38.6% (42.0-52.0) Mean Corpuscular Volume 89.4fl (82.0-101.0) Mean Corpuscular Hemoglobin 29.6pg (29.0-33.0) Mean Corpuscular Hemoglobin Concent 33.2g/dl (32.0-37.0) Red Cell Distribution Width 15.1% (11.5-14.5) Platelet Count 83799^3/UL (140-415) Mean Platelet Volume 10.4fl (7.4-10.4) Neutrophils % 74.5% (39.0-77.0) Lymphocytes % 12.0% (15.0-51.0) Monocytes % 12.1% (0.0-11.0) Eosinophils % 0.1% (0.0-7.0) Basophils % 0.1% (0.0-2.0) Nucleated Red Blood Cells % 0.0/100WBC (0.0-0.0) Neutrophils # 13.610^3/ul (1.6-7.5) Lymphocytes # 2.210^3/ul (0.8-2.9) Monocytes # 2.210^3/ul (0.3-0.9) Eosinophils # 0.010^3/ul (0.0-0.5) Basophils # 0.010^3/ul (0.0-0.1) Nucleated Red Blood Cells # 0.010^3/ul (0.0-0.0) Sodium Level 138mmol/L (135-144) Potassium Level 3.8mmol/L (3.5-5.1) Chloride Level 97mmol/L (97-110) Carbon Dioxide Level 34mmol/L (21-31) Anion Gap 11 (8-16) Blood Urea Nitrogen 65mg/dl (7-20) Creatinine 1.16mg/dl (0.61-1.24) Glucose Level 101mg/dl (70-220) Calcium Level 8.9mg/dl (8.4-10.2) BREEZY HARVEY MD Sep 23, 2017 10:48
--- NOTE | 2017-09-23 11:48 | CONS ---
Date/Time of Note Date/Time of Note DATE: 09/23/17 TIME: 11:48 Consult Date/Type/Reason Admit Date/Time Sep 17, 2017 at 22:20 Type of Consultation: Pulm Ordering Provider: BREEZY FRIAS MD Subjective Patient remains comfortable. Less shortness of breath. Objective Vital Signs Date Time Temp Pulse Resp B/P Pulse Ox O2 Delivery O2 Flow Rate FiO2 09/23/17 08:05 98.4 79 19 118/72 96 09/23/17 08:00 Nasal Cannula 3.0 Intake and Output 09/22/17 09/22/17 09/23/17 14:59 22:59 06:59 Intake Total 800 ml Output Total 1000 ml Balance -200 ml Exam PHYSICAL EXAMINATION: GENERAL: Elderly-appearing gentleman, awake, alert, oriented, comfortable at rest, talking in full and complete sentences. VITAL SIGNS: As above. NECK: Supple. No JVD or lymphadenopathy. CARDIAC: S1, S2, no added sounds or murmurs. CHEST: Diminished air entry bilaterally. ABDOMEN: Soft, nontender. No guarding, no rebound. EXTREMITIES: No cyanosis, clubbing, edema. NEUROLOGIC: Generalized weakness. Results/Medications Result Diagram: 09/23/17 0603 09/23/17 0603 Results 24 hrs Laboratory Tests Test 09/23/17 06:03 White Blood Count 18.3 H Red Blood Count 4.32 L Hemoglobin 12.8 L Hematocrit 38.6 L Mean Corpuscular Volume 89.4 Mean Corpuscular Hemoglobin 29.6 Mean Corpuscular Hemoglobin Concent 33.2 Red Cell Distribution Width 15.1 H Platelet Count 202 Mean Platelet Volume 10.4 Neutrophils % 74.5 Lymphocytes % 12.0 L Monocytes % 12.1 H Eosinophils % 0.1 Basophils % 0.1 Nucleated Red Blood Cells % 0.0 Neutrophils # 13.6 H Lymphocytes # 2.2 Monocytes # 2.2 H Eosinophils # 0.0 Basophils # 0.0 Nucleated Red Blood Cells # 0.0 Sodium Level 138 Potassium Level 3.8 Chloride Level 97 Carbon Dioxide Level 34 H Anion Gap 11 Blood Urea Nitrogen 65 H Creatinine 1.16 Glucose Level 101 Calcium Level 8.9 Medications Current Medications Ondansetron HCl (Zofran Inj) 4 mg Q6H PRN IV NAUSEA AND/OR VOMITING; Start at 22:30 Acetaminophen (Tylenol Tab) 650 mg Q6H PRN PO PAIN LEVEL 1-3 OR FEVER; Start 09/17/17 at 22:30 Enoxaparin Sodium (Lovenox) 40 mg DAILY SC Last administered on 09/23/17 09: 11; Admin Dose 40 MG; Start 09/18/17 at 09:00 Clonidine (Catapres) 0.1 mg TID PRN PO sbp>170; Start 09/17/17 at 22:30 Aspirin (Halfprin) 81 mg DAILY PO Last administered on 09/23/17 09:10; Admin Dose 81 MG; Start 09/18/17 at 09:00 Atorvastatin Calcium (Lipitor) 20 mg QHS PO Last administered on 09/22/17 20: 13; Admin Dose 20 MG; Start 09/18/17 at 21:00 Clotrimazole (Lotrimin Cr) 1 applic BID TOP Last administered on 09/23/17 09: 11; Admin Dose 1 APPLIC; Start 09/18/17 at 09:00 Lubiprostone (Amitiza) 24 mcg BID PO Last administered on 09/23/17 09:10; Admin Dose 24 MCG; Start 09/18/17 at 09:00 Magnesium Oxide (Mag-Ox 400) 400 mg BID PO Last administered on 09/23/17 09: 10; Admin Dose 400 MG; Start 09/18/17 at 09:00 Metoprolol Tartrate (Lopressor) 25 mg BID PO Last administered on 09/23/17 09 :10; Admin Dose 25 MG; Start 09/18/17 at 09:00 Montelukast Sodium (Singulair) 10 mg QHS PO Last administered on 09/22/17 20: 14; Admin Dose 10 MG; Start 09/18/17 at 21:00 Paroxetine HCl (Paxil) 40 mg DAILY PO Last administered on 09/23/17 09:11; Admin Dose 40 MG; Start 09/18/17 at 09:00 Salmeterol Xinafoate/ Fluticasone (Advair 250/50 Diskus) 1 inh BID INH Last administered on 09/23/17 09:06; Admin Dose 1 INH; Start 09/18/17 at 09:00 Tiotropium [place] (Spiriva) 1 inh DAILY INH Last administered on 11/26/17at 09 :07; Admin Dose 1 INH; Start 09/19/17 at 09:30 Guaifenesin (Mucinex) 600 mg BID PO Last administered on 09/23/17 09:10; Admin Dose 600 MG; Start 09/19/17 at 21:00 Diazepam (Valium) 10 mg BID PRN PO ANXIETY Last administered on 09/22/17 20: 31; Admin Dose 10 MG; Start 09/19/17 at 22:00 Furosemide (Lasix) 40 mg DAILY IV Last administered on 09/23/17 09:07; Admin Dose 40 MG; Start 09/22/17 at 09:00 Methylprednisolone Sodium Succinate (Solu-Medrol) 40 mg DAILY IV Last administered on 09/23/17 09:10; Admin Dose 40 MG; Start 09/23/17 at 09:00 Assessment/Plan Chief Complaint/Hosp Course IMPRESSION AND PLAN: 1. Chronic obstructive pulmonary disease with acute exacerbation. 2. Doubt acute coronary event. 3. Ongoing tobacco use. 4. Persistent leukocytosis possibly exacerbated by steroids The patient will require: 1. Bronchodilators. 2. Supplemental O2. 3. Decrease steroids 4. Outpatient pulmonary function testing. 5. Out patient PSG r/o CIRO. 6. Change to IV Lasix. Agree with discharge planning. Complete steroids and antibiotics. Problems: LINDA BURT MD, [facility] Sep 23, 2017 11:48
--- NOTE | 2017-09-23 15:43 | PN ---
Date/Time of Note Date/Time of Note DATE: 09/23/17 TIME: 15:30 Assessment/Plan VTE Prophylaxis VTE Prophylaxis Intervention: LMWH Lines/Catheters [facility]from [facility] Saline Lock Urinary Cath still in place: No Assessment/Plan Problems: (1) COPD exacerbation Status: Acute Comment: improving . Titrating down on steroid per pulmonary team. (2) CHF exacerbation Status: Chronic Comment: Change Lasix to po tomorrow. (3) Weakness Status: Acute Comment: Will evaluate for placement at [facility] or [facility]. (4) Anxiety Status: Chronic Comment: Feels more tired and sleepy on higher dose of diazepam . Reduce back to 5mg today. Subjective 24 Hr Interval Summary Free Text/Dictation Patient more tired and sleepy today. Can ambulate short distances but gets sob quickly. Exam/Review of Systems Vital Signs Vitals Vital Signs Date Time Temp Pulse Resp B/P Pulse Ox O2 Delivery O2 Flow Rate FiO2 09/23/17 12:00 69 09/23/17 11:59 98.1 19 116/60 90 09/23/17 08:00 Nasal Cannula 3.0 Intake and Output 09/22/17 09/22/17 09/23/17 14:59 22:59 06:59 Intake Total 800 ml Output Total 1000 ml Balance -200 ml Exam Patient asleep, arousable but appears drowsy. Constitutional: alert, oriented Respiratory: crackles/rales, wheezing Cardiovascular: regular rate and rhythm Gastrointestinal: non-tender, soft Musculoskeletal: nl extremities to inspection Results Result Diagram: 09/23/17 0603 09/23/17 0603 Results 24 hrs Laboratory Tests Test 09/23/17 06:03 White Blood Count 18.3 H Red Blood Count 4.32 L Hemoglobin 12.8 L Hematocrit 38.6 L Mean Corpuscular Volume 89.4 Mean Corpuscular Hemoglobin 29.6 Mean Corpuscular Hemoglobin Concent 33.2 Red Cell Distribution Width 15.1 H Platelet Count 202 Mean Platelet Volume 10.4 Neutrophils % 74.5 Lymphocytes % 12.0 L Monocytes % 12.1 H Eosinophils % 0.1 Basophils % 0.1 Nucleated Red Blood Cells % 0.0 Neutrophils # 13.6 H Lymphocytes # 2.2 Monocytes # 2.2 H Eosinophils # 0.0 Basophils # 0.0 Nucleated Red Blood Cells # 0.0 Sodium Level 138 Potassium Level 3.8 Chloride Level 97 Carbon Dioxide Level 34 H Anion Gap 11 Blood Urea Nitrogen 65 H Creatinine 1.16 Glucose Level 101 Calcium Level 8.9 Medications Medications Current Medications Ondansetron HCl (Zofran Inj) 4 mg Q6H PRN IV NAUSEA AND/OR VOMITING; Start at 22:30 Acetaminophen (Tylenol Tab) 650 mg Q6H PRN PO PAIN LEVEL 1-3 OR FEVER; Start 09/17/17 at 22:30 Enoxaparin Sodium (Lovenox) 40 mg DAILY SC Last administered on 09/23/17 09: 11; Admin Dose 40 MG; Start 09/18/17 at 09:00 Clonidine (Catapres) 0.1 mg TID PRN PO sbp>170; Start 09/17/17 at 22:30 Aspirin (Halfprin) 81 mg DAILY PO Last administered on 09/23/17 09:10; Admin Dose 81 MG; Start 09/18/17 at 09:00 Atorvastatin Calcium (Lipitor) 20 mg QHS PO Last administered on 09/22/17 20: 13; Admin Dose 20 MG; Start 09/18/17 at 21:00 Clotrimazole (Lotrimin Cr) 1 applic BID TOP Last administered on 09/23/17 09: 11; Admin Dose 1 APPLIC; Start 09/18/17 at 09:00 Lubiprostone (Amitiza) 24 mcg BID PO Last administered on 09/23/17 09:10; Admin Dose 24 MCG; Start 09/18/17 at 09:00 Magnesium Oxide (Mag-Ox 400) 400 mg BID PO Last administered on 09/23/17 09: 10; Admin Dose 400 MG; Start 09/18/17 at 09:00 Metoprolol Tartrate (Lopressor) 25 mg BID PO Last administered on 09/23/17 09 :10; Admin Dose 25 MG; Start 09/18/17 at 09:00 Montelukast Sodium (Singulair) 10 mg QHS PO Last administered on 09/22/17 20: 14; Admin Dose 10 MG; Start 09/18/17 at 21:00 Paroxetine HCl (Paxil) 40 mg DAILY PO Last administered on 09/23/17 09:11; Admin Dose 40 MG; Start 09/18/17 at 09:00 Salmeterol Xinafoate/ Fluticasone (Advair 250/50 Diskus) 1 inh BID INH Last administered on 09/23/17 09:06; Admin Dose 1 INH; Start 09/18/17 at 09:00 Tiotropium [place] (Spiriva) 1 inh DAILY INH Last administered on 09/23/17 09 :07; Admin Dose 1 INH; Start 09/19/17 at 09:30 Guaifenesin (Mucinex) 600 mg BID PO Last administered on 09/23/17 09:10; Admin Dose 600 MG; Start 09/19/17 at 21:00 Diazepam (Valium) 10 mg BID PRN PO ANXIETY Last administered on 09/22/17 20: 31; Admin Dose 10 MG; Start 09/19/17 at 22:00 Furosemide (Lasix) 40 mg DAILY IV Last administered on 09/23/17 09:07; Admin Dose 40 MG; Start 09/22/17 at 09:00 Methylprednisolone Sodium Succinate (Solu-Medrol) 40 mg DAILY IV Last administered on 09/23/17 09:10; Admin Dose 40 MG; Start 09/23/17 at 09:00 BREEZY FRIAS MD Sep 23, 2017 15:42
[2017-09-23] MEDS: MONTELUKAST 10 MG TAB PO SCH (20:57)
[2017-09-23] MEDS: ATORVASTATIN 20 MG TAB PO SCH (20:57)
[2017-09-24] VITALS (10 sets, daily range): BP systolic 106–138; BP diastolic 54–59; PULSE 59–67; RESP 18–60
[2017-09-24] MEDS: DIAZEPAM 5 MG TAB PO PRN ×2 (00:33→17:37)
[2017-09-24] MEDS: ALBUTEROL/IPRATROPIUM (NEB) 3 ML AMP HHN SCH ×2 (08:11→14:30)
[2017-09-24] MEDS ORDERED: FUROSEMIDE 40 MG TAB PO SCH (09:00)
[2017-09-24] MEDS: TIOTROPIUM 18 MCG CAPSULE INHA DEV INH SCH (09:00)
[2017-09-24] MEDS: ASPIRIN (EC) 81 MG TAB PO SCH (09:03)
[2017-09-24] MEDS: SALMETEROL/FLUTICASONE 250/50 INHA INH SCH (09:03)
[2017-09-24] MEDS: LUBIPROSTONE 24 MCG CAP PO SCH (09:03)
[2017-09-24] MEDS: METHYLPREDNISOLONE 40 MG INJ IV SCH (09:03)
[2017-09-24] MEDS: GUAIFENESIN LA 600 MG TABSR PO SCH (09:04)
[2017-09-24] MEDS: METOPROLOL 25 MG TAB PO SCH (09:04)
[2017-09-24] MEDS: MAGNESIUM OXIDE 400 MG TAB PO SCH (09:04)
[2017-09-24] MEDS: PAROXETINE 20 MG TAB PO SCH (09:04)
[2017-09-24] MEDS: CLOTRIMAZOLE 1% 30 GM CR TOP SCH (09:05)
[2017-09-24] MEDS: ENOXAPARIN 40 MG/0.4 ML SYG SC SCH (09:05)
--- NOTE | 2017-09-24 10:40 | CONS ---
Date/Time of Note Date/Time of Note DATE: 09/24/17 TIME: 10:38 Assessment/Plan Assessment/Plan Additional Assessment/Plan Assessment and recommendations; 1. Patient admitted with COPD exacerbation with significant interval improvement. 2. History of hypertension. Discontinue Solu-Medrol. Start prednisone 30 mg a day. Further tapering down off prednisone dosing based upon clinical response. Consider discharge. Consultation Date/Type/Reason Admit Date/Time Sep 17, 2017 at 22:20 Initial Consult Date Type of Consultation: Pulm Referring Provider: BREEZY FRIAS MD 24 HR Interval Summary Free Text/Dictation Patient's condition is significantly improved. Denies any wheezing, coughing, sputum production. Denies any chest pain. General exam; elderly male, awake and alert. Currently in no distress. Exam/Review of Systems Vital Signs Vitals Vital Signs Date Time Temp Pulse Resp B/P Pulse Ox O2 Delivery O2 Flow Rate FiO2 09/24/17 08:20 64 09/24/17 08:12 22 96 Nasal Cannula 3.0 09/24/17 08:09 98.3 123/58 Intake and Output 09/23/17 09/23/17 09/24/17 14:59 22:59 06:59 Intake Total 1440 ml 700 ml Output Total 800 ml 500 ml Balance 640 ml 200 ml Exam HEENT exam; supple neck, no JVD. No lymphadenopathy. Midline trachea. No thyromegaly. Patient is edentulous. Has bilateral intraocular lens implants. Chest exam; diminished but clear breath sounds. No added sounds. S1-S2 audible , no murmurs. Regular rhythm. Abdomen exam; soft, protuberant. Nontender. No organomegaly. Bowel sounds audible. Extremity exam; no peripheral edema. ELECTRIC METER TESTER exam; no focal motor deficit. Results Result Diagram: 09/23/1760209/23/1703 Medications Medications Current Medications Ondansetron HCl (Zofran Inj) 4 mg Q6H PRN IV NAUSEA AND/OR VOMITING; Start at 22:30 Acetaminophen (Tylenol Tab) 650 mg Q6H PRN PO PAIN LEVEL 1-3 OR FEVER; Start 09/17/17 at 22:30 Enoxaparin Sodium (Lovenox) 40 mg DAILY SC Last administered on 09/24/17t 09: 05; Admin Dose 40 MG; Start 09/18/17 at 09:00 Clonidine (Catapres) 0.1 mg TID PRN PO sbp>170; Start 09/17/17 at 22:30 Aspirin (Halfprin) 81 mg DAILY PO Last administered on 09/24/17 09:03; Admin Dose 81 MG; Start 09/18/17 at 09:00 Atorvastatin Calcium (Lipitor) 20 mg QHS PO Last administered on 09/23/17 20: 57; Admin Dose 20 MG; Start 09/18/17 at 21:00 Clotrimazole (Lotrimin Cr) 1 applic BID TOP Last administered on 09/24/17 09: 05; Admin Dose 1 APPLIC; Start 09/18/17 at 09:00 Lubiprostone (Amitiza) 24 mcg BID PO Last administered on 09/24/17 09:03; Admin Dose 24 MCG; Start 09/18/17 at 09:00 Magnesium Oxide (Mag-Ox 400) 400 mg BID PO Last administered on 09/24/17 09: 04; Admin Dose 400 MG; Start 09/18/17 at 09:00 Metoprolol Tartrate (Lopressor) 25 mg BID PO Last administered on 09/24/17 09 :04; Admin Dose 25 MG; Start 09/18/17 at 09:00 Montelukast Sodium (Singulair) 10 mg QHS PO Last administered on 09/23/17 20: 57; Admin Dose 10 MG; Start 09/18/17 at 21:00 Paroxetine HCl (Paxil) 40 mg DAILY PO Last administered on 09/24/17 09:04; Admin Dose 40 MG; Start 09/18/17 at 09:00 Salmeterol Xinafoate/ Fluticasone (Advair 250/50 Diskus) 1 inh BID INH Last administered on 09/24/17 09:03; Admin Dose 1 INH; Start 09/18/17 at 09:00 Tiotropium [place] (Spiriva) 1 inh DAILY INH Last administered on 09/23/17 09 :07; Admin Dose 1 INH; Start 09/19/17 at 09:30 Guaifenesin (Mucinex) 600 mg BID PO Last administered on 09/24/17 09:04; Admin Dose 600 MG; Start 09/19/17 at 21:00 Methylprednisolone Sodium Succinate (Solu-Medrol) 40 mg DAILY IV Last administered on 09/24/17 09:03; Admin Dose 40 MG; Start 09/23/17 at 09:00 Diazepam (Valium) 5 mg BID PRN PO ANXIETY Last administered on 09/24/17 00:33 ; Admin Dose 5 MG; Start 09/23/17 at 15:30 Furosemide (Lasix) 40 mg DAILY PO Last administered on 09/24/17 09:04; Admin Dose 40 MG; Start 09/24/17 at 09:00 [place] Sep 24, 2017 10:40
--- NOTE | 2017-09-24 15:40 | DS ---
Date/Time of Note Date/Time of Note DATE: 09/24/17 TIME: 15:14 Discharge Summary Admission/Discharge Info Admit Date/Time Sep 17, 2017 at 22:20 Discharge Date/Time Sep 24, 2017 Discharge Diagnosis COPD exacerbation CHF exacerbation Anxiety Weakness Hypertension Hypercholesterolemia Patient Condition: Fair Consults Cardiology Dr. Cormier. Pulmonary Dr. Bowen/ Christina Procedures Chest CT angiogram - negative for PE Carotid dopplers- 50-69% stenosis left ICA similar to dopplers done 07/20/2016 Bilateral lower extremities dopplers- negative for DVT Hx of Present Illness Patient presents with progressive shortness of breath over several days. In ER , patient was noted to be hypoxic with mildly elevated troponins and BNP. Patient is admitted for COPD and CHF exacerbation, rule out [place]. Hospital Course Patient was seen by Cardiology and Pulmonary in the hospital. Placed on IV solumedrol and furosemide as well as Duoneb nebulizer treatments with gradual improvements but continues to have weakness and shortness of breath on exertion. Medications were changed to po prednisone and po lasix and patient is discharged to [facility] for rehabilitation and continued treatment. Home Meds Active Scripts Clotrimazole (Clotrim) 15 Gm Cr, 1 APPLIC TOP BID for 14 Days, #30 GM Prov:BREEZY HARVEY MD 08/07/17 Furosemide* (Furosemide*) 40 Mg Tablet, 40 MG PO DAILY for 30 Days, #30 TAB Prov:BREEZY HARVEY MD 08/07/17 Metoprolol Tartrate* (Lopressor*) 25 Mg Tab, 25 MG PO BID for 30 Days, #60 TAB Prov:BREEZY HARVEY MD 08/07/17 Reported Medications Prednisone* (Prednisone*) 20 Mg Tab, 20 MG PO DAILY, TAB 08/03/17 Tiotropium [place]* (Spiriva*) 18 Mcg Cap.w.dev, 1 CAP INHALATION DAILY, #30 CAP 05/01/17 Albuterol Sulfate* (Ventolin HFA*) 18 Gm Hfa.aer.ad, 2 PUFF INHALATION Q6H Y for SHORTNESS OF BREATH, #1 INHALER 05/01/17 Lubiprostone* (Amitiza*) 24 Mcg Capsule, 24 MCG PO BID, #60 CAP 05/01/17 Atorvastatin Calcium* (Atorvastatin Calcium*) 20 Mg Tablet, 20 MG PO QHS, #30 TAB 05/01/17 Diazepam* (Diazepam*) 5 Mg Tablet, 5 MG PO BID, TAB 07/19/16 Magnesium Oxide* (Mag-Oxide*) 400 Mg Tablet, 400 MG PO BID, TAB 07/19/16 Montelukast Sodium* (Montelukast Sodium*) 10 Mg Tablet, 10 MG PO QHS, #30 TAB 07/19/16 Paroxetine Hcl* (Paxil*) 40 Mg Tablet, 40 MG PO DAILY, TAB 07/19/16 Ramipril (Ramipril) 2.5 Mg Capsule, 2.5 MG PO DAILY, CAP 07/19/16 Aspirin (Low Dose Aspirin) 81 Mg Tablet.dr, 81 MG PO DAILY, #30 TAB 07/19/16 Salmeterol Xinaf/Fluticasone* (Advair*) 250-50 Diskus Inhaler, 1 INH INH BID, INH 09/27/14 Discontinued Reported Medications Sulfamethoxazole/Trimethoprim* (Bactrim Ds* Tablet) 1 Each Tablet, 1 TAB PO BID , TAB 08/03/17 Follow-up Plan Patient will be seen at [facility] by Dr. aHrvey Primary Care Provider Breezy Harvey MD Time spent on discharge: > 30 minutes BREEZY HARVEY MD Sep 24, 2017 15:25
[2017-09-25] MEDS ORDERED: predniSONE 10 MG TAB PO SCH (09:00)
== END 2017-09-24 18:34 | DRG 191 ==
LOC: E/R 15:50 → MS4 22:20
PROVIDERS: ADMIT Internal Medicine; ATTEND Internal Medicine
DX: J44.1 Chronic obstructive pulmonary disease with (acute) exacerbation (principal); I50.32 Chronic diastolic (congestive) heart failure; I11.0 Hypertensive heart disease with heart failure; I65.23 Occlusion and stenosis of bilateral carotid arteries; F41.9 Anxiety disorder, unspecified; E78.00 Pure hypercholesterolemia, unspecified; Z79.82 Long term (current) use of aspirin; Z79.52 Long term (current) use of systemic steroids; Z95.5 Presence of coronary angioplasty implant and graft; Z72.0 Tobacco use; D72.829 Elevated white blood cell count, unspecified
CPT/HCPCS: 36415; 36600; 71010; 71275; 80048; 80053; 81001; 82550; 82553; 82803; 83735; 83880; 84100; 84484; 85025; 87400; 93005; 93306; 93880; 93970; 94640; 94644; 94664; 96374; 96375; J1940; J1650; J2920; J2930; Q9967

== ENCOUNTER 2017-11-01 17:02 | Inpatient (IN) | END 2017-11-07 19:30 | disposition home health service (06) | DRG 308 ==

== ENCOUNTER 2017-12-05 10:47 | Inpatient (IN) | END 2017-12-06 21:00 | disposition home or self-care (01) | DRG 190 ==

== ENCOUNTER 2017-12-09 23:07 | Inpatient (IN) | END 2017-12-21 14:48 | disposition home health service (06) | DRG 190 ==

== ENCOUNTER → 2018-01-04 | Outpatient (CLI) | END | disposition home or self-care (01) ==

== ENCOUNTER 2018-04-27 14:28 | Inpatient (IN) | END 2018-05-10 16:20 | DRG 291 ==

== ENCOUNTER 2018-06-03 14:47 | Inpatient (IN) | END 2018-07-15 22:50 | DRG 329 ==

== ENCOUNTER → 2018-07-26 | Outpatient (CLI) | END | disposition home or self-care (01) ==

== ENCOUNTER 2018-08-31 01:07 | Inpatient (IN) | END 2018-10-03 17:50 | DRG 871 ==

== ENCOUNTER 2018-11-18 19:38 | Inpatient (IN) | payer MEDICARE, BC ==
[~2018-11-18] VITALS: Ht 172.7 cm; Wt 79.5 kg
[~2018-11-18 19:38] MED LIST changes: +ACET325T45 PO; -ADV25050 INH; -ALBU18HF INHALATION; +AMIN30LI PO; +AMOX250C PO; +ARIP5TAB14 PO; +ASC500 PO; -ASPI-664 PO; -CLO15CR1 TOP; +DILT120C77 PO; +DOCU-144 PO; +DOXY100T21 PO; +ESCI10TA48 PO; +FLUT1BLS INH; +FOLI-49 PO; -FURO40TA4 PO; +GINK120C PO; +GUAI5SYR2 PO; +GUAI600T23 PO; +IPRA3AMP29 INHALATION; -LUBI24CA7 PO; +MAGN400O19 PO; -MAGN400T27 PO; +MAGN400T28 PO; +MIRT15TA PO; -MONT10TA24 PO; +MUCO4 NEB; +MULT-105 PO; +PANT40TA4 PO; -PARO40TA48 PO; +PRED10TA PO; -PRED20TA PO; -RAMI2.5C36 PO; +SAN30GM TOP; -SULF1TAB31 PO; -TIOT18CA INHALATION
[2018-11-18] MEDS ORDERED: CEFEPIME 1GM/50 ML (PMX) 50 ML IVPB STA (23:22)
[2018-11-18] MEDS ORDERED: VANCOMYCIN 1 GM (PMX) 250 ML IVPB STA (23:22)
--- NOTE | 2018-11-18 23:49 | ERD ---
ER Documentation Chief Complaint Chief Complaint family states patient more confuse since yesterday, cold extremities HPI This is an 83-year-old male was family says more confused since yesterday. Patient has history of emphysema and they state that since yesterday has been more altered than normal and more lethargic and confused. No trauma. No fevers no chills. Family does note cold extremities. Speaking with primary care anant garcia, patient has history of recurrent pneumonias that do not be diagnosable via chest x-ray. ROS All systems reviewed and are negative except as per history of present illness. Medications Home Meds Active Scripts Amoxicillin* (Amoxicillin*) 250 Mg Cap, 250 MG PO BID for 6 Days, #30 CAP Prov:BREEZY HARVEY MD 10/02/18 Doxycycline Monohydrate* (Doxycycline Monohydrate*) 100 Mg Tablet, 100 MG PO BID for 6 Days, TAB Prov:BREEZY HARVEY MD 10/02/18 Pantoprazole* (Pantoprazole*) 40 Mg Tablet.dr, 40 MG PO AC BREAKFAST for 30 Days, TAB Prov:BREEZY HARVEY MD 10/02/18 Prednisone* (Prednisone*) 10 Mg Tab, 10 MG PO DAILY for 30 Days, TAB Prov:BREEZY HARVEY MD 10/02/18 Collagenase* (Santyl*) 30 Gm Oint..gm., 1 APPLIC TOP DAILY for 30 Days Prov:BREEZY HARVEY MD 10/02/18 Guaifenesin (Guaifenesin) 600 Mg Tablet.sa, 600 MG PO BID for 30 Days Prov:BREEZY HARVEY MD 10/02/18 Fluticasone/Vilanterol (Breo Ellipta 200-25 Mcg INH) 1 Each Blst.w.dev, 1 INH INH DAILY for 30 Days Prov:BREEZY HARVEY MD 10/02/18 Acetylcysteine* (Mucomyst*) 4 Ml Soln, 3 ML NEB Q6H RESP THERAPY for 30 Days Prov:BREEZY HARVEY MD 10/02/18 Aripiprazole* (Abilify*) 5 Mg Tab, 5 MG PO DAILY for 30 Days, TAB Prov:BREEZY HARVEY MD 10/02/18 Metoprolol Tartrate* (Lopressor*) 25 Mg Tab, 50 MG PO BID for 30 Days, TAB Prov:BREEZY HARVEY MD 10/02/18 Diltiazem Hcl* (Cardizem CD*) 120 Mg Cap.sr.24h, 120 MG PO BID for 30 Days Prov:BREEZY HARVEY MD 10/02/18 Escitalopram Oxalate* (Escitalopram Oxalate*) 10 Mg Tablet, 10 MG PO DAILY for 30 Days, #30 TAB Prov:BREEZY HARVEY MD 07/12/18 Reported Medications Mirtazapine* (Remeron*) 15 Mg Tablet, 15 MG PO HS, TAB 08/31/18 Diazepam* (Diazepam*) 5 Mg Tablet, 5 MG PO Q9PM, TAB 08/31/18 Magnesium Hydroxide* (Milk Of Magnesia*) 400 Mg/5 Ml Oral.susp, 30 ML PO Q24H PRN for NEEDED, ML 08/31/18 Ascorbic Acid (Vitamin C) 500 Mg Tab, 500 MG PO Q 9AM, TAB 08/31/18 Multivitamin with Minerals (Multivitamins with Minerals) 1 Each Tablet, 1 EACH PO DAILY, TAB 08/31/18 Amino Acids/Protein Hydrolys (PRO-STAT LIQUID) 30 Ml Liquid.pkt, 30 ML PO BID SUGAR FREE 08/31/18 Ginkgo Biloba Extract (GINKGO BILOBA) 120 Mg Capsule, 120 MG PO BID, CAP 08/31/18 Docusate Sodium* (Colace*) 100 Mg Capsule, 200 MG PO QHS, #30 CAP 08/31/18 Acetaminophen* (Acetaminophen*) 325 Mg Tablet, 650 MG PO Q4H PRN for PAIN LEVEL 1-5, #30 TAB 08/31/18 Magnesium Oxide* (Magnesium Oxide*) 400 Mg Tablet, 400 MG PO DAILY, TAB 08/31/18 Guaifenesin-Dextromethorphan* (Robitussin* DM) 100MG/10MG/5ML Syrup, 10 ML PO Q6H PRN for COUGH, ML 08/31/18 Folic Acid* (Folic Acid*) 1 Mg Tablet, 1 MG PO DAILY, TAB 08/31/18 Ipratropium-Albuterol (Ipratropium-Albuterol) 0.5-3 Mg/3 Ml Ampul.neb, 3 ML INHALATION Q6, #30 VIAL 08/31/18 Atorvastatin Calcium* (Atorvastatin Calcium*) 20 Mg Tablet, 20 MG PO QHS, #30 TAB 06/03/18 Allergies Allergies: Coded Allergies: No Known Allergy (Unverified , 11/18/18) PMhx/Soc History of Surgery: Yes (COLOSTOMY) Hx Neurological Disorder: No Hx Respiratory Disorders: No Hx Cardiac Disorders: Yes Hx Psychiatric Problems: No Hx Miscellaneous Medical Probl: No Hx Alcohol Use: No Hx Substance Use: No Hx Tobacco Use: No Smoking Status: Unknown if ever smoked Physical Exam Vitals Vital Signs Date Temp Pulse Resp B/P (MAP) Pulse Ox O2 O2 Flow FiO2 Time Delivery Rate 11/18/18 97.0 85 19 120/60 100 Nasal 23:27 (80) Cannula 11/18/18 Nasal 2 22:32 Cannula 11/18/18 97.0 81 20 150/74 100 Nasal 22:31 (99) Cannula 11/18/18 97.0 85 14 134/91 98 Nasal 21:31 (105) Cannula 11/18/18 97.0 85 18 97/52 (67) 93 Room Air 21:01 11/18/18 97.0 70 18 97/52 (67) 93 19:49 Physical Exam Const: No acute distress Head: Atraumatic Eyes: Normal Conjunctiva ENT: Normal External Ears, Nose and Mouth. Neck: Full range of motion. No meningismus. Resp: Clear to auscultation bilaterally Cardio: Regular rate and rhythm, no murmurs Abd: Soft, non tender, non distended. Normal bowel sounds Skin: No petechiae or rashes Back: No midline or flank tenderness Ext: No cyanosis, or edema Neur: Awake and alert Psych: Normal Mood and Affect Result Diagram: 11/18/18212411/18/182124 Results 24 hrs Laboratory Tests Test 11/18/18 21:19 11/18/18 21:25 11/18/18 22:01 Bedside Glucose 114 mg/dL White Blood Count 11.2 10^3/ul Red Blood Count 3.89 10^6/ul Hemoglobin 11.4 g/dl Hematocrit 36.5 % Mean Corpuscular Volume 93.8 fl Mean Corpuscular Hemoglobin 29.3 pg Mean Corpuscular 31.2 g/dl Hemoglobin Concent Red Cell Distribution Width 15.9 % Platelet Count 225 10^3/UL Mean Platelet Volume 9.8 fl Immature Granulocytes % 0.700 % Neutrophils % 76.8 % Lymphocytes % 9.7 % Monocytes % 11.4 % Eosinophils % 1.0 % Basophils % 0.4 % Nucleated Red Blood Cells % 0.0 /100WBC Immature Granulocytes # 0.080 10^3/ul Neutrophils # 8.6 10^3/ul Lymphocytes # 1.1 10^3/ul Monocytes # 1.3 10^3/ul Eosinophils # 0.1 10^3/ul Basophils # 0.0 10^3/ul Nucleated Red Blood Cells # 0.0 10^3/ul Prothrombin Time 12.6 Sec Prothrombin Time Ratio 1.0 INR International Normalized Ratio 0.93 Activated Partial Thromboplast 29.0 Sec Time Sodium Level 139 mmol/L Potassium Level 4.7 mmol/L Chloride Level 104 mmol/L Carbon Dioxide Level 23 mmol/L Anion Gap 12 Blood Urea Nitrogen 39 mg/dl Creatinine 1.77 mg/dl Est Glomerular Filtrat Rate mL/min mL/min Glucose Level 115 mg/dl Calcium Level 11.1 mg/dl Total Bilirubin 0.1 mg/dl Direct Bilirubin 0.00 mg/dl Indirect Bilirubin 0.1 mg/dl Aspartate Amino Transf (AST/SGOT) 19 IU/L Alanine 17 IU/L Aminotransferase (ALT/SGPT) Alkaline Phosphatase 96 IU/L Ammonia < 9 umol/l Troponin I Pending Total Protein 7.7 g/dl Albumin 4.1 g/dl Globulin 3.60 g/dl Albumin/Globulin Ratio 1.13 POC Venous Lactate 1.4 mmol/L Current Medications Medications Dose Sig/Rolando Start Time Status Last (Trade) Ordered Route PRN Stop Time Admin Dose Reason Admin Cefepime HCl 50 ml @ ONCE STAT 11/18/18 100 mls/hr IVPB 23:22 11/18/18 23:51 Vancomycin 250 ml @ ONCE STAT 11/18/18 HCl 125 mls/hr IVPB 23:22 11/19/18 01:21 Procedures/MDM Is only EKG: Rate/Rhythm: [Normal Sinus Rhythm] QRS, ST, T-waves: [No changes consistent w/ acute ischemia] Impression: [No evidence of ischemia or arrhythmia] Chest X-ray 1V Interpreted by me: Soft Tissue: No acute abnormalities Bones: No acute abnormalities Mediastinum/Cardiac Silhouette/Lungs: [No acute abnormalities] Medical decision making: This 83-year-old male comes in with altered mental status. Per Dr. Harvey, patient start on prophylactic antibiotics post cultures. No evidence of sepsis at this time. Fluid bolus felt given normal blood pressure and a negative lactic acid. Patient does not meet sepsis criteria. Patient will be admitted to Dr. Harvey for further evaluation and management of alteration in mental status Departure Diagnosis: Primary Impression: Altered level of consciousness Additional Impression: Altered mental status Altered mental status type: unspecified Qualified Codes: R41.82 - Altered mental status, unspecified Ruled Out: Pneumonia Condition: Serious ALEJANDRINA BURNS Nov 18, 2018 23:49
[2018-11-18] MEDS ORDERED: METO-429 PO (23:55)
[2018-11-19] VITALS (7 sets, daily range): BP systolic 85–132; BP diastolic 35–88; PULSE 64–81; RESP 16–20; Ht 172.7 cm; Wt 79.5 kg
[2018-11-19] MEDS ORDERED: GUAIFENESIN/DM 5ML CUP PO PRN (02:00)
--- NOTE | 2018-11-19 08:25 | NUR ---
ADMISSION ADMITTED AN 83-YEAR-OLD MALE FROM [facility] WITH CHIEF COMPLAINT OF ALTERED LEVEL OF CONSCIOUSNESS/ INCREASING CONFUSION. ADMITTING DX: UTI/ R/O PNEUMONIA. ORIENTED TO PERSON, COOPERATIVE BUT OTHERWISE FORGETFUL AND PLEASANTLY CONFUSED. BEDSIDE SWALLOW DONE: ABLE TO TOLERATE PO'S BUT HAS NO TEETH SO DR. FRIAS CALLED TO CHANGE DIET CONSISTENCY TO PUREED. SKIN GASTON; PT HAS DTI IN SACRUM/ BOTH HEELS REDDENED BUT BLANCHABLE; HAS BRUISES AT BOTH HANDS (SKIN NOT OPEN) AND HAS A RIGHT LATERAL LEG ABRASION (SKIN NOT OPEN). TO BE SEEN BY SENIOR ANALYST FOR FURTHER SKIN EVALUATION.PT ALSO HAS A RIGHT ABDOMINAL COLOSTOMY WITH NO OUTPUT/ COLOSTOMY BAG INTACT. LEFT COLOSTOMY INTACT WITH SOFT BROWN STOOL. SKIN PHOTOS TAKEN, COLOSTOMY CARE RENDERED. LEFT FOREARM G-22 IV ACCESS INTACT AND PATENT. DR. FRIAS NOTIFIED OF PT'S ADMISSION TO [facility]/ ADMISSION ORDERS NOTED AND CARRIED OUT. Addendum: 11/19/18 at 1622 by BENEDICT BARTH RN CORRECTION: RIGHT COLOSTOMY WITH OUTPUT/ LEFT OSTOMY WITH NO OUTPUT.
[2018-11-19] MEDS ORDERED: COLLAGENASE 30 GM TUBE TOP SCH (09:00)
[2018-11-19] MEDS ORDERED: predniSONE 10 MG TAB PO SCH (09:00)
[2018-11-19] MEDS ORDERED: COLLAGENASE 5 GM (UD JAR) TOP SCH (12:00)
[2018-11-19] MEDS: ARIPIPRAZOLE 5 MG TAB PO SCH (12:41)
[2018-11-19] MEDS: ASCORBIC ACID 500 MG TAB PO SCH ×2 (12:42→21:04)
[2018-11-19] MEDS: FOLIC ACID 1 MG TAB PO SCH (12:42)
[2018-11-19] MEDS: FLUTICASONE/VILANTEROL 200-25 INH DEVICE INH SCH (12:43)
[2018-11-19] MEDS: DILTIAZEM (CD) 120 MG CAP PO SCH ×2 (12:43→21:00)
[2018-11-19] MEDS: METOPROLOL 50 MG TAB PO SCH ×2 (12:43→21:04)
--- NOTE | 2018-11-19 15:11 | NUR ---
WOUND CARE CONSULT: Wound care consult was attempted; however at the time of rounding patient including ICU bed not in room; possibly out for procedure or imaging. Wound Care Nurse will re-evaluate at a later time. Thank you Kesha Marcos, MSN, RN, CCRN, [facility]
[2018-11-19] MEDS: ALBUTEROL/IPRATROPIUM (NEB) 3 ML AMP INH SCH ×2 (15:13→19:50)
[2018-11-19] MEDS: ACETYLCYSTEINE 20% 4 ML VIAL NEB SCH ×2 (15:13→19:50)
--- NOTE | 2018-11-19 15:36 | NUR ---
CT CHEST CAT SCAN OF CHEST COMPLETED AT THIS TIME/ AWAITING RESULTS. PT IS DROWSY BUT EASILY AROUSABLE. POSITIONS OF COMFORT MAINTAINED. STABLE VITAL SIGNS/ OXYGEN PER NASAL CANNULA ON AT 5L/MIN.
--- NOTE | 2018-11-19 16:14 | NUR ---
TEACHINGS CORE MEASURE TEACHINGS FOR PNEUMONIA PROVIDED TO PT'S : KEMAR. INSTRUCTIONS WELL VERBALIZED.
[2018-11-19] MEDS: BALSAM PERU/CASTOR OIL 60 GM TUBE TOP SCH (16:54)
[2018-11-19] MEDS: PANTOPRAZOLE (EC) 40 MG TAB PO SCH (16:55)
--- NOTE | 2018-11-19 16:55 | NUR ---
SS NOTE: CONSULT PT'S , KEMAR REQUESTED TO SPEAK WITH SW. SW MET WITH AND PT'S SON, W[place] WATERMAN. FAMILY REPORTED THAT THEY HAVE BEEN TAKING CARE OF PT AT HOME BUT THEY ARE CONSIDERING POSSIBLE SNF PLACEMENT WHEN PT IS READY FOR D/C. STATED THAT SHE HAS CALLED A FEW FACILITIES AND HAS BEEN GIVEN DIFFERENT PRICES. FAMILY INQUIRED ABOUT THE PAYMENTS AND COVERAGE FOR PT AT THE SNF. SW EXPLAINED THAT CM WOULD BE BETTER TO EXPLAIN ABOUT THE COVERAGE BECAUSE IT DEPENDS ON PT'S INSURANCE. FAMILY REQUESTED TO MEET WITH CM TO [place] AT 1630. SW CALLED AND SPOKE WITH CMCHANDLER AND REQUESTED FOR HER TO F/U AND MEET WITH PT'S FAMILY TOMORROW TO ANSWER THEIR QUESTIONS AND DISCUSS ABOUT D/C OPTIONS. SW WILL REMAIN AVAILABLE.
--- NOTE | 2018-11-19 17:15 | HP ---
Date/Time of Note Date/Time of Note DATE: 11/19/18 TIME: 17:13 Assessment/Plan VTE Prophylaxis SCD applied (from [facility]): Yes Pharmacological prophylaxis: NA/contraindicated Pharm contraindication: thrombocytopenia Lines/Catheters IV C[facility]ter Type (from [facility]): Peripheral IV Urinary Cath still in place: No Assessment/Plan Problems: (1) Altered mental status Status: Acute Comment: this patient's altered mental status may be due to urinary tract infection or aspiration pneumonitis. Start atient on IV Ancef and clindamycin and continue to monitor neurologically. Qualifiers: Altered mental status type: unspecified Qualified Codes: R41.82 - Altered mental status, unspecified (2) UTI (urinary tract infection) Status: Acute Comment: await urine culture result. (3) Pneumonia Status: Acute Qualifiers: Pneumonia type: aspiration pneumonia Aspiration pneumonia type: due to gastric secretions Laterality: bilateral Lung location: lower lobe of lung Qualified Codes: J69.0 - Pneumonitis due to inhalation of food and vomit (4) COPD exacerbation Status: Acute Comment: add solumedrol for short course. resume oscillator therapy with respiratory therapy and resume Mucinex 600 mg PO BID since patient has a known history of mucus plugging and aspiration pneumonia. Continue Duoneb nebulizer treatments as well as Mucomyst and spiriva. (5) Sacral decubitus ulcer Status: Chronic Comment: treatment per wound care team. Qualifiers: Pressure injury stage: stage 1 Qualified Codes: L89.151 - Pressure ulcer of sacral region, stage 1 (6) Anxiety and depression Status: Chronic Comment: continue Remeron for chronic depression but hold diazepam for now due to altered mental status. Result Diagram: 11/19/1851811/19/18518 Results 24hrs Laboratory Tests Test 11/18/18 21:19 11/18/18 21:25 11/18/18 22:01 11/18/18 23:20 Bedside Glucose 114 White Blood Count 11.2 #H Red Blood Count 3.89 #L Hemoglobin 11.4 #L Hematocrit 36.5 #L Mean Corpuscular 93.8 Volume Mean Corpuscular 29.3 Hemoglobin Mean Corpuscular 31.2 L Hemoglobin Concent Red Cell 15.9 H Distribution Width Platelet Count 225 # Mean Platelet Volume 9.8 Immature 0.700 H Granulocytes % Neutrophils % 76.8 Lymphocytes % 9.7 L Monocytes % 11.4 H Eosinophils % 1.0 Basophils % 0.4 Nucleated Red Blood 0.0 Cells % Immature 0.080 H Granulocytes # Neutrophils # 8.6 H Lymphocytes # 1.1 Monocytes # 1.3 H Eosinophils # 0.1 Basophils # 0.0 Nucleated Red Blood 0.0 Cells # Prothrombin Time 12.6 Prothrombin Time 1.0 Ratio INR International 0.93 Normalized Ratio Activated 29.0 Partial Thromboplast Time Sodium Level 139 Potassium Level 4.7 Chloride Level 104 Carbon Dioxide Level 23 Anion Gap 12 Blood Urea Nitrogen 39 H Creatinine 1.77 H Est Glomerular Filtrat Rate mL/min Glucose Level 115 Calcium Level 11.1 H Total Bilirubin 0.1 L Direct Bilirubin 0.00 Indirect Bilirubin 0.1 Aspartate Amino 19 Transf (AST/SGOT) Alanine 17 Aminotransferase (AL T/SGPT) Alkaline Phosphatase 96 Ammonia < 9 L Troponin I 0.164 *H Total Protein 7.7 Albumin 4.1 Globulin 3.60 H Albumin/Globulin 1.13 Ratio POC Venous Lactate 1.4 Urine Color YELLOW Urine Clarity CLOUDY A Urine pH 5.0 Urine Specific 1.019 [place] Urine Ketones NEGATIVE Urine Nitrite NEGATIVE Urine Bilirubin NEGATIVE Urine Urobilinogen NEGATIVE Urine Leukocyte 2+ H Esterase Urine Microscopic 7 H RBC Urine Microscopic 86 H WBC Urine Squamous FEW Epithelial Cells Urine Bacteria FEW A Urine Mucus FEW A Urine Yeast FEW A (Budding) Urine Hemoglobin NEGATIVE Urine Glucose NEGATIVE Urine Total Protein 1+ H Test 11/18/18 23:52 11/19/18 02:14 11/19/18 05:19 POC Venous Lactate 0.3 L Lactic Acid Level 0.8 0.8 White Blood Count 10.1 Red Blood Count 3.48 L Hemoglobin 10.2 L Hematocrit 33.0 L Mean Corpuscular 94.8 Volume Mean Corpuscular 29.3 Hemoglobin Mean Corpuscular 30.9 L Hemoglobin Concent Red Cell 16.0 H Distribution Width Platelet Count 221 Mean Platelet Volume 10.5 H Immature 0.500 H Granulocytes % Neutrophils % 75.2 Lymphocytes % 10.7 L Monocytes % 11.7 H Eosinophils % 1.4 Basophils % 0.5 Nucleated Red Blood 0.0 Cells % Immature 0.050 H Granulocytes # Neutrophils # 7.6 H Lymphocytes # 1.1 Monocytes # 1.2 H Eosinophils # 0.1 Basophils # 0.1 Nucleated Red Blood 0.0 Cells # Erythrocyte 105 H Sedimentation Rate Sodium Level 139 Potassium Level 4.8 Chloride Level 107 Carbon Dioxide Level 22 Anion Gap 10 Blood Urea Nitrogen 39 H Creatinine 1.68 H Est Glomerular Filtrat Rate mL/min Glucose Level 98 Calcium Level 10.5 H Total Bilirubin 0.1 L Direct Bilirubin 0.00 Indirect Bilirubin 0.1 Aspartate Amino 17 Transf (AST/SGOT) Alanine 19 Aminotransferase (AL T/SGPT) Alkaline Phosphatase 69 Total Protein 6.7 # Albumin 3.3 Globulin 3.40 H Albumin/Globulin 0.97 Ratio HPI/ROS Admit Date/Time Admit Date/Time Nov 18, 2018 at 23:24 Hx of Present Illness 83-year-old male with history of COPD and recurrent aspiration pneumonia from reflux esophagitis just came home from a half-way facility two weeks ago when he began having altered mental status. Patients brought him into the emergency room where he was noted to have a dirty urine and low oxygen saturation so patient was admitted for possible urinary tract infection and possible aspiration pneumonitis. PMH/Family/Social Past Medical History Medical History: cancer, coronary artery disease, hypertension, peptic ulcer disease, renal disease, other (COPD, anxiety, depression.) Medications Current Medications Acetaminophen (Tylenol Tab) 650 mg Q4H PRN PO PAIN LEVEL 1-5; Start 11/19/18 at 02:00 Acetylcysteine (Mucomyst) 3 ml Q6H RESP THERAPY NEB Last administered on 11/19/18at 15:13; Admin Dose 3 ML; Start 11/19/18 at 02:00 Aripiprazole (Abilify) 5 mg DAILY PO Last administered on 11/19/18at 12:41; Admin Dose 5 MG; Start 11/19/18 at 09:00 Ascorbic Acid (Vitamin C) 500 mg BID PO Last administered on 11/19/18at 12:42; Admin Dose 500 MG; Start 11/19/18 at 09:00 Atorvastatin Calcium (Lipitor) 20 mg QHS PO ; Start 11/19/18 at 21:00 Diltiazem HCl (Cardizem Cd) 120 mg BID PO Last administered on 11/19/18at 12:43; Admin Dose 120 MG; Start 11/19/18 at 09:00 Docusate Sodium (Colace) 200 mg QHS PO ; Start 11/19/18 at 21:00 Fluticasone/ Vilanterol (Breo Ellipta 200-25 Mcg Inh) 1 inh DAILY INH Last administered on 11/19/18at 12:43; Admin Dose 1 INH; Start 11/19/18 at 09:00 Folic Acid (Folic Acid) 1 mg DAILY PO Last administered on 11/19/18at 12:42; Admin Dose 1 MG; Start 11/19/18 at 09:00 Guaifenesin/ Dextromethorphan (Robitussin Dm Liquid Cup) 10 ml Q6H PRN PO COUGH; Start 11/19/18 at 02:00 Albuterol/ Ipratropium (Duoneb) 3 ml Q6H RESP THERAPY INH Last administered on 11/19/18at 15:13; Admin Dose 3 ML; Start 11/19/18 at 06:00 Metoprolol Tartrate (Lopressor) 50 mg BID PO Last administered on 11/19/18at 12:43; Admin Dose 50 MG; Start 11/19/18 at 09:00 Mirtazapine (Remeron) 15 mg HS PO ; Start 11/19/18 at 21:00 Pantoprazole (Protonix Tab) 40 mg AC BREAKFAST PO Last administered on 11/19/18at 16:55; Admin Dose 40 MG; Start 11/19/18 at 07:00 Prednisone (Prednisone) 10 mg DAILY PO Last administered on 11/19/18at 16:53; Admin Dose 10 MG; Start 11/19/18 at 09:00 Influenza Virus Vaccine Quadrival (Fluzone) 0.5 ml ONCE ONCE IM* ; Start 11/20/18 at 13:00; Stop 11/20/18 at 13:01 Guaifenesin (Mucinex) 600 mg BID PO ; Start 11/19/18 at 21:00; Status UNV Coded Allergies: No Known Allergy (Unverified , 11/18/18) Past Surgical History Past Surgical Hx: angioplasty, bowel resection, other Family History Significant Family History: no pertinent family hx Social History Alcohol Use: other Smoking Status: Heavy tobacco smoker Drug Use: none Exam/Review of Systems Vital Signs Vitals Vital Signs Date Temp Pulse Resp B/P (MAP) Pulse Ox O2 O2 Flow FiO2 Time Delivery Rate 11/19/18 Nasal 2.0 16:19 Cannula 11/19/18 97.4 65 17 109/35 97 16:00 (59) Exam Constitutional: alert Psych: confusion Head: normocephalic Eyes: nl conjunctiva ENMT: nl external ears & nose Respiratory: crackles/rales Cardiovascular: regular rate and rhythm Gastrointestinal: other Musculoskeletal: other Neurological: confused, other FRIAS,BREEZY Lupe SULLIVAN Nov 19, 2018 17:15
--- NOTE | 2018-11-19 18:29 | NUR ---
FOR TRANSFER TO [facility] PT FOR TRANSFER TO [facility]/ HAND OFF REPORT GIVEN TO RECEIVING RN: BOBBY.AWAITING TRANSPORT.
[2018-11-19] MEDS: GUAIFENESIN LA 600 MG TABSR PO SCH (21:00)
[2018-11-19] MEDS: ATORVASTATIN 20 MG TAB PO SCH (21:03)
[2018-11-19] MEDS: DOCUSATE SODIUM 100 MG CAP PO SCH (21:03)
[2018-11-19] MEDS: MIRTAZAPINE 15 MG TAB PO SCH (21:04)
--- NOTE | 2018-11-19 22:06 | NUR ---
Received patient at: 1858 Accompanied by: ICU nurse Vitals: stable. Titrated NC from 6LPM to 2LPM, saturating 97%. No SOB or dyspnea Pain: denies Pain intervention: n/a
[2018-11-20] VITALS (17 sets, daily range): BP systolic 90–137; BP diastolic 43–65; PULSE 58–75; RESP 17–24
--- NOTE | 2018-11-20 00:26 | NUR ---
Progress note: Patient noted to be intermittenly combative, IV pulled out Dr. Carter notified. BP fluctuating betwen 80s/50s-110s/80s, SpO2 100%, NC 2LPM. Sedatives deferred due to low BP; considering b/l soft restraints. Will continue to monitor.
--- NOTE | 2018-11-20 01:02 | NUR ---
RESTRAINTS PLACED Order received at: 0015 MD: Raul Type: Bilateral soft restraints Family notified: Attempted call at 0103, no answer. Will attempt call again later in morning.
[2018-11-20] MEDS: CLINDAMYCIN 600 MG/D5W (PMX) 50 ML IVPB SCH ×5 (01:11→23:27)
[2018-11-20] MEDS: ALBUTEROL/IPRATROPIUM (NEB) 3 ML AMP INH SCH ×4 (01:28→20:39)
[2018-11-20] MEDS: ACETYLCYSTEINE 20% 4 ML VIAL NEB SCH ×4 (01:28→20:39)
[2018-11-20] MEDS: CEFAZOLIN 1 GM/50 ML (PMX) 50 ML IVPB SCH ×4 (02:16→20:07)
[2018-11-20] MEDS: PANTOPRAZOLE (EC) 40 MG TAB PO SCH (06:14)
--- NOTE | 2018-11-20 06:33 | NUR ---
EOSS N: Intermittently confused/combative, lethargic; at times A&Ox4, pleasant, calm. Pt pulled out IV at around 2300. After consideration due to low BP at the time, soft limb restraints were placed. See note for details. R: NC 2 LPM, SPO2 100%. No SOB or dyspnea noted. Coarse lung sounds. CV: NSR GI: R. lower colostomy, 250 ml output, brown, liquid. L. lower s/p ileostomy, non-functional. : Incontinent Skin: Wound care completed. WOCN ordered. Dietary consult ordered. POC: IV antibiotics (Clindamycin, Ancef regimen), IV steroids, RT mgmt (oscillator, HHN). Pt may need midline; has hx of being hard stick (s/p midlines, PICC line). Called ER around 0200, too busy to do midline during this shift. Will endorse to AM.
--- NOTE | 2018-11-20 07:01 | PQ ---
Date/Time of Note Date/Time of Note DATE: 11/20/18 TIME: 06:[address] Harvey, A review of the medical record found a need for documentation clarification. patient admitted with UTI and aspiration pneumonia. patient admitted with altered mental status documented as "this patient's altered mental status may be due to urinary tract infection or aspiration pneumonitis.". please further specify the diagnosis of altered mental status. Thank you Please clarify a diagnosis being treated. To facilitate accurate and complete coding, please mauro ( x ) the suspected diagnosis that apply: ( ) Metabolic Encephalopathy ( x ) Toxic Encephalopathy ( ) Other Please provide your response by clicking edit document,make your choice (x ) , click ok/save and finally click sign. You may alsodocument your responseinyour progress notes. Thank you for your time. Yayo DAVISBS,CCS,CCDS Clinical Activity Therapy Specialist Health Information Management, [facility] Room [id number] [place] [address] YAYO OTTO Nov 20, 2018 07:01 BREEZY HARVEY MD Nov 21, 2018 00:43
[2018-11-20] MEDS ORDERED: COLLAGENASE 5 GM (UD JAR) TOP SCH (09:00)
[2018-11-20] MEDS: ARIPIPRAZOLE 5 MG TAB PO SCH (09:09)
[2018-11-20] MEDS: FOLIC ACID 1 MG TAB PO SCH (09:10)
[2018-11-20] MEDS: DILTIAZEM (CD) 120 MG CAP PO SCH ×2 (09:10→20:09)
[2018-11-20] MEDS: METOPROLOL 50 MG TAB PO SCH ×2 (09:11→20:08)
[2018-11-20] MEDS: GUAIFENESIN LA 600 MG TABSR PO SCH ×2 (09:11→20:09)
[2018-11-20] MEDS: ASCORBIC ACID 500 MG TAB PO SCH ×2 (09:11→20:08)
[2018-11-20] MEDS: METHYLPREDNISOLONE 40 MG INJ IV SCH ×2 (09:12→20:07)
[2018-11-20] MEDS: BALSAM PERU/CASTOR OIL 60 GM TUBE TOP SCH (09:12)
[2018-11-20] MEDS: FLUTICASONE/VILANTEROL 200-25 INH DEVICE INH SCH (09:12)
--- NOTE | 2018-11-20 14:31 | NUR ---
Nutrition Consult Consult regarding adequate caloric intake was ordered. Per RN pt is eating 100%. Please provide a feeder with each meal. Will send Novasource BID. Will continue to monitor PO intake. Thank you!
--- NOTE | 2018-11-20 16:03 | NUR ---
Case Mngt: Spoke with patient's son Venkatesh/[phone] and confirmed that his father was at [facility]. Per patient's son, he prefers him to go back home and not stay at SNF. He also would like to reschedule family conference with SW. Called SW at [phone] and informed her.
--- NOTE | 2018-11-20 17:55 | PN ---
Date/Time of Note Date/Time of Note DATE: 11/20/18 TIME: 17:53 Assessment/Plan VTE Prophylaxis Risk score [place] [facility] [place] risk: 7 SCD applied (from [facility] [place]): Yes Pharmacological prophylaxis: NA/contraindicated Pharm contraindication: thrombocytopenia, anticoag not tolerated Lines/Catheters IV C[facility] Type [facility]from [facility]): Peripheral IV Urinary Cath still in place: No Assessment/Plan Assessment/Plan (1) Altered mental status Status: Acute Comment: this patient's altered mental status may be due to urinary tract infection or aspiration pneumonitis. Now with dehydration. Start patient on IV fluids as well as Ancef and clindamycin and continue to monitor neurologically. (2) UTI (urinary tract infection) Status: Acute Comment: await urine culture result. (3) Pneumonia Status: Acute Comment: Chest CT confirms aspiration pneumonia, most likely due to gastric secretions from gerd. Previous swallow studies have been normal. Continue IV antibiotics and keep patients head of bed at greater than 30 at all time. (4) COPD exacerbation Status: Acute Comment: added solumedrol for short course. Resume oscillator therapy with res piratory therapy and resume Mucinex 600 mg PO BID since patient has a known history of mucus plugging and aspiration pneumonia. Continue Duoneb nebulizer treatments as well as Mucomyst and spiriva. (5) Sacral decubitus ulcer Status: Chronic Comment: treatment per wound care team. Qualifiers: Pressure injury stage: stage 1 Qualified Codes: L89.151 - Pressure ulcer of sacral region, stage 1 (6) Anxiety and depression Status: Chronic Comment: continue Remeron for chronic depression but hold diazepam for now due to altered mental status. Result Diagram: 11/20/18 0458 11/20/18 0458 Results 24hrs Laboratory Tests Test 11/20/18 04:58 White Blood Count 11.4 H Red Blood Count 3.30 L Hemoglobin 9.7 L Hematocrit 32.1 L Mean Corpuscular Volume 97.3 Mean Corpuscular Hemoglobin 29.4 Mean Corpuscular Hemoglobin Concent 30.2 L Red Cell Distribution Width 16.0 H Platelet Count 242 Mean Platelet Volume 10.6 H Immature Granulocytes % 0.400 Neutrophils % 86.1 H Lymphocytes % 7.5 L Monocytes % 5.7 Eosinophils % 0.1 Basophils % 0.2 Nucleated Red Blood Cells % 0.0 Immature Granulocytes # 0.040 H Neutrophils # 9.8 H Lymphocytes # 0.9 Monocytes # 0.7 Eosinophils # 0.0 Basophils # 0.0 Nucleated Red Blood Cells # 0.0 Sodium Level 146 H Potassium Level 5.2 H Chloride Level 108 Carbon Dioxide Level 21 Anion Gap 17 #H Blood Urea Nitrogen 42 H Creatinine 1.84 H Est Glomerular Filtrat Rate mL/min Glucose Level 102 Calcium Level 10.5 H Subjective 24 Hr Interval Summary Free Text/Dictation patient is awake and alert, oriented to person but not place or time. Exam/Review of Systems Vital Signs Vitals Vital Signs Date Temp Pulse Resp B/P (MAP) Pulse Ox O2 O2 Flow FiO2 Time Delivery Rate 11/20/18 63 16:06 11/20/18 98.0 20 91/50 (64) 96 Nasal 15:50 Cannula 11/20/18 1.0 24 13:20 Intake and Output 11/19/18 11/19/18 11/20/18 1515:00 23:00 07:00 IntakeIntake Total 120 ml 240 ml 250 ml OutputOutput Total 250 ml BalanceBalance 120 ml 240 ml 0 ml Exam Constitutional: alert Psych: no complaints, confusion Head: normocephalic, atraumatic ENMT: nl external ears & nose, mucosa pink and moist Respiratory: crackles/rales, diminished breath sounds Cardiovascular: regular rate and rhythm Gastrointestinal: soft, other Musculoskeletal: nl extremities to inspection Medications Medications Current Medications Acetaminophen (Tylenol Tab) 650 mg Q4H PRN PO PAIN LEVEL 1-5; Start 11/19/18 at 02:00 Acetylcysteine (Mucomyst) 3 ml Q6H RESP THERAPY NEB Last administered on 11/20/18at 13:19; Admin Dose 3 ML; Start 11/19/18 at 02:00 Aripiprazole (Abilify) 5 mg DAILY PO Last administered on 11/20/18at 09:09; Admin Dose 5 MG; Start 11/19/18 at 09:00 Ascorbic Acid (Vitamin C) 500 mg BID PO Last administered on 11/20/18at 09:11; Admin Dose 500 MG; Start 11/19/18 at 09:00 Atorvastatin Calcium (Lipitor) 20 mg QHS PO Last administered on 11/19/18at 21:03; Admin Dose 20 MG; Start 11/19/18 at 21:00 Diltiazem HCl (Cardizem Cd) 120 mg BID PO Last administered on 11/20/18 09:10; Admin Dose 120 MG; Start 11/19/18 at 09:00 Docusate Sodium (Colace) 200 mg QHS PO Last administered on 11/19/18 21:03; Admin Dose 200 MG; Start 11/19/18 at 21:00 Fluticasone/ Vilanterol (Breo Ellipta 200-25 Mcg Inh) 1 inh DAILY INH Last administered on 11/20/18 09:12; Admin Dose 1 INH; Start 11/19/18 at 09:00 Folic Acid (Folic Acid) 1 mg DAILY PO Last administered on 11/20/18 09:10; Admin Dose 1 MG; Start 11/19/18 at 09:00 Guaifenesin/ Dextromethorphan (Robitussin Dm Liquid Cup) 10 ml Q6H PRN PO COUGH; Start 11/19/18 at 02:00 Albuterol/ Ipratropium (Duoneb) 3 ml Q6H RESP THERAPY INH Last administered on 11/20/18 13:19; Admin Dose 3 ML; Start 11/19/18 at 06:00 Metoprolol Tartrate (Lopressor) 50 mg BID PO Last administered on 11/20/18 09:11; Admin Dose 50 MG; Start 11/19/18 at 09:00 Mirtazapine (Remeron) 15 mg HS PO Last administered on 11/19/18 21:04; Admin Dose 15 MG; Start 11/19/18 at 21:00 Pantoprazole (Protonix Tab) 40 mg AC BREAKFAST PO Last administered on 11/20/18 06:14; Admin Dose 40 MG; Start 11/19/18 at 07:00 Prednisone (Prednisone) 10 mg DAILY PO Last administered on 11/19/18 16:53; Admin Dose 10 MG; Start 11/19/18 at 09:00; Status Hold Guaifenesin (Mucinex) 600 mg BID PO Last administered on 11/20/18 09:11; Admin Dose 600 MG; Start 11/19/18 at 21:00 Cefazolin Sodium 50 ml @ 100 mls/hr Q8 IVPB Last administered on 11/20/18 14:16; Admin Dose 100 MLS/HR; Start 11/20/18 at 00:00 Clindamycin HCl/ Dextrose 50 ml @ 50 mls/hr Q6 IVPB Last administered on 11/20/18at 12:14; Admin Dose 50 MLS/HR; Start 11/20/18 at 00:00 Methylprednisolone Sodium Succinate (Solu-Medrol) 40 mg Q12 IV Last administered on 11/20/18at 09:12; Admin Dose 40 MG; Start 11/20/18 at 09:00 BREEZY FRIAS MD Nov 20, 2018 17:55
--- NOTE | 2018-11-20 19:46 | NUR ---
RN NOTE NO CUTE CHANGES NOTED DURING THIS SHIFT . PT HAS POOR APPETITE , PT REPOSITIONED Q2 HOURS .
[2018-11-20] MEDS: DOCUSATE SODIUM 100 MG CAP PO SCH (20:08)
[2018-11-20] MEDS: ATORVASTATIN 20 MG TAB PO SCH (20:08)
[2018-11-20] MEDS: ACETAMINOPHEN 325 MG TAB PO PRN (20:08)
[2018-11-20] MEDS: MIRTAZAPINE 15 MG TAB PO SCH (20:09)
--- NOTE | 2018-11-20 21:16 | NUR ---
Called and left a message to Dr Harvey's reservoir engineering consultant, Dr Sow, re: d/c order for restraint since pt doesn't need it. As per morning nurse, she doesn't think pt needs it too. Waiting for a call back.
--- NOTE | 2018-11-20 21:37 | NUR ---
Dr Sow called back and order to d/c the soft restraint.
--- NOTE | 2018-11-20 21:41 | NUR ---
Pt made aware that his soft restraint be discontinued. Also called and left a message to Aminah, , on her phone that soft restraint will be d/cd. Notified charge nurse as well and FORENSIC IDENTIFICATION SPECIALIST.
[2018-11-21] VITALS (12 sets, daily range): BP systolic 95–132; BP diastolic 49–82; PULSE 63–74; RESP 18–20
[2018-11-21] MEDS: SOD CHLORIDE 0.45% 1,000 ML IV SCH ×4 (01:40→23:49)
--- NOTE | 2018-11-21 02:23 | NUR ---
On airloss mattress now. Pt doesnt attempt to pull his tubes/lines. No need to have soft restraint.
[2018-11-21] MEDS: ACETYLCYSTEINE 20% 4 ML VIAL NEB SCH ×4 (02:27→19:30)
[2018-11-21] MEDS: ALBUTEROL/IPRATROPIUM (NEB) 3 ML AMP INH SCH ×4 (02:27→19:30)
[2018-11-21] MEDS: CEFAZOLIN 1 GM/50 ML (PMX) 50 ML IVPB SCH ×3 (06:06→21:34)
[2018-11-21] MEDS: PANTOPRAZOLE (EC) 40 MG TAB PO SCH (06:06)
--- NOTE | 2018-11-21 06:21 | NUR ---
Pt is awake, alert x 2-3. with confusion at times but follows command. Colostomy patent. NO output on ileostomy. On going IVF and IV ABX. Needs total care. Bed alarm on, call light within reach.
[2018-11-21] MEDS: CLINDAMYCIN 600 MG/D5W (PMX) 50 ML IVPB SCH ×4 (06:41→23:46)
[2018-11-21] MEDS: FOLIC ACID 1 MG TAB PO SCH (08:07)
[2018-11-21] MEDS: ARIPIPRAZOLE 5 MG TAB PO SCH (08:07)
[2018-11-21] MEDS: METHYLPREDNISOLONE 40 MG INJ IV SCH (08:07)
[2018-11-21] MEDS: GUAIFENESIN LA 600 MG TABSR PO SCH ×2 (08:07→21:35)
[2018-11-21] MEDS: ASCORBIC ACID 500 MG TAB PO SCH ×2 (08:07→21:35)
[2018-11-21] MEDS: METOPROLOL 50 MG TAB PO SCH ×2 (08:07→21:35)
[2018-11-21] MEDS: BALSAM PERU/CASTOR OIL 60 GM TUBE TOP SCH (08:08)
[2018-11-21] MEDS: FLUTICASONE/VILANTEROL 200-25 INH DEVICE INH SCH (08:08)
[2018-11-21] MEDS: DILTIAZEM (CD) 120 MG CAP PO SCH (09:51)
--- NOTE | 2018-11-21 17:01 | PN ---
Date/Time of Note Date/Time of Note DATE: 11/21/18 TIME: 16:59 Assessment/Plan VTE Prophylaxis Risk score [place]from [facility] [place] risk: 7 SCD applied (from [facility] [place] Yes Pharmacological prophylaxis: NA/contraindicated Pharm contraindication: thrombocytopenia, anticoag not tolerated Lines/Catheters IV Catheter Type (from [facility]): Peripheral IV Urinary Cath still in place: No Assessment/Plan Problems: (1) Altered mental status Status: Acute Comment: improving . recheck cbc in am Qualifiers: Altered mental status type: unspecified Qualified Codes: R41.82 - Altered mental status, unspecified (2) UTI (urinary tract infection) Status: Acute Comment: await urine culture (3) Pneumonia Status: Acute Comment: clinically improved on antibiotics . recheck cxr in am. Qualifiers: Pneumonia type: aspiration pneumonia Aspiration pneumonia type: due to gastric secretions Laterality: bilateral Lung location: lower lobe of lung Qualified Codes: J69.0 - Pneumonitis due to inhalation of food and vomit (4) COPD exacerbation Status: Acute Comment: improving with RT treatments. Taper down on IV steroids. (5) Anxiety and depression Status: Chronic (6) Dehydration Status: Acute Comment: Increased bun/creatinine and potassium on admission. Receiving Normmal saline, recheck bmp in am on IV fluids (7) Paroxysmal A-fib Status: Chronic Comment: stable rhythm for now but watch for recurrence of rapid afib with pneumonia. Result Diagram: 11/20/188 11/20/188 Subjective 24 Hr Interval Summary Free Text/Dictation Patient awake, knows where he is and who I am. Exam/Review of Systems Exam Vitals Vital Signs Date Temp Pulse Resp B/P (MAP) Pulse Ox O2 O2 Flow FiO2 Time Delivery Rate 11/21/18 68 16:05 11/21/18 97.5 20 95/51 (66) 100 Room Air 16:02 11/21/18 21 15:59 11/21/18 2.0 07:34 Intake and Output 11/20/18 11/20/18 11/21/18 1515:00 23:00 07:00 IntakeIntake Total 350 ml 950 ml OutputOutput Total 550 ml 600 ml BalanceBalance -200 ml 350 ml Constitutional: alert Psych: no complaints Head: normocephalic, atraumatic Eyes: nl conjunctiva ENMT: nl external ears & nose Respiratory: clear to auscultation, normal air movement Cardiovascular: regular rate and rhythm, nl pulses BREEZY FRIAS MD Nov 21, 2018 17:01
--- NOTE | 2018-11-21 18:42 | NUR ---
RN NOTE PT WAS CALM AND COOPERATIVE TODAY , FAMILY AT BED SIDE , PT REPOSITIONED Q2 HOURS . COLOSTOMY BAG CHANGED . PT EVAL AND CHEST X RAY RESULT PENDING .
--- NOTE | 2018-11-21 19:10 | NUR ---
Pt is awake, alert x2, pleasantly confused but not pulling his lines or tubes anymore. Denies pain at this time. On 2L of O2 via nasal cannula. On going IVF. Total care. Has an order for PT eval. Bed alarm on ,call light within reach.
[2018-11-21] MEDS: ATORVASTATIN 20 MG TAB PO SCH (21:35)
[2018-11-21] MEDS: ACETAMINOPHEN 325 MG TAB PO PRN (21:35)
[2018-11-21] MEDS: MIRTAZAPINE 15 MG TAB PO SCH (21:35)
[2018-11-21] MEDS: DOCUSATE SODIUM 100 MG CAP PO SCH (21:35)
[2018-11-22] VITALS (13 sets, daily range): BP systolic 112–134; BP diastolic 52–62; PULSE 64–80; RESP 17–20
[2018-11-22] MEDS: ALBUTEROL/IPRATROPIUM (NEB) 3 ML AMP INH SCH ×4 (01:19→19:47)
[2018-11-22] MEDS: ACETYLCYSTEINE 20% 4 ML VIAL NEB SCH ×4 (01:19→19:47)
--- NOTE | 2018-11-22 02:50 | NUR ---
Pt sleeping intermittently. On going ABX IV.
[2018-11-22] MEDS: CLINDAMYCIN 600 MG/D5W (PMX) 50 ML IVPB SCH ×3 (04:48→17:14)
[2018-11-22] MEDS: PANTOPRAZOLE (EC) 40 MG TAB PO SCH (05:22)
[2018-11-22] MEDS: CEFAZOLIN 1 GM/50 ML (PMX) 50 ML IVPB SCH ×3 (05:22→21:12)
--- NOTE | 2018-11-22 05:43 | NUR ---
Pt awake. IVF d/cd by . Pt drinks better. Able to eat more as well. Denies pain. Still needs O2 via nasal cannula. Noted no coughing at this time. Reposition for comfort q 2 hours and prn.
[2018-11-22] MEDS: METOPROLOL 50 MG TAB PO SCH ×2 (08:32→21:12)
[2018-11-22] MEDS: METHYLPREDNISOLONE 40 MG INJ IV SCH (08:32)
[2018-11-22] MEDS: GUAIFENESIN LA 600 MG TABSR PO SCH ×2 (08:32→21:12)
[2018-11-22] MEDS: ASCORBIC ACID 500 MG TAB PO SCH ×2 (08:32→21:12)
[2018-11-22] MEDS: BALSAM PERU/CASTOR OIL 60 GM TUBE TOP SCH (08:32)
[2018-11-22] MEDS: FLUTICASONE/VILANTEROL 200-25 INH DEVICE INH SCH (08:32)
[2018-11-22] MEDS: FOLIC ACID 1 MG TAB PO SCH (08:33)
[2018-11-22] MEDS: ARIPIPRAZOLE 5 MG TAB PO SCH (08:38)
--- NOTE | 2018-11-22 10:57 | NUR ---
Wound Care Consult: 83-year-old male with history of COPD and recurrent aspiration pneumonia from reflux esophagitis just came home from a nursing home facility two weeks ago when he began having altered mental status. Patients brought him into the emergency room where he was noted to have a dirty urine and low oxygen saturation so patient was admitted for possible urinary tract infection and possible aspiration pneumonitis. Wound care team consulted for wounds present on admission Sacrococcyx with noted blanchable, slow blood return with noted pigmented vs (possible deep tissue injury, 0.3cm x 0.3cm ). Treatment recommendation include, cleanse area with mild soap and water, pat dry, apply Venelex ointment and cover with foam border dressing BID and as needed. Bilateral heels with noted blanchable redness, intact skin. Treatment recommendation include, cleanse area with mild soap and water, pat dry, apply Venelex ointment and cover with foam border dressing BID and as needed. Low air loss mattress use Reposition every 2 hours per department protocol Elevate heels with pillows to off-load WOCN discussed with Alfie Alvares clinical nutrition manager and treatment recommendation Joaquin Camargo RN MSN WOCN CM
[2018-11-22] MEDS: DILTIAZEM (CD) 120 MG CAP PO SCH (11:10)
--- NOTE | 2018-11-22 13:43 | PN ---
Date/Time of Note Date/Time of Note DATE: 11/22/18 TIME: 13:27 Assessment/Plan VTE Prophylaxis Risk score (from [facility] [place])>0 risk: 7 SCD applied (from [facility] [place]): Yes Pharmacological prophylaxis: NA/contraindicated Pharm contraindication: thrombocytopenia, anticoag not tolerated Lines/Catheters IV Catheter Type (from [facility]): Peripheral IV Urinary Cath still in place: No Assessment/Plan Assessment/Plan (1) Altered mental status Status: Acute Comment: improving . Continue antibiotic treatment. (2) Hyperkalemia Status: Acute Comment: persistent and rising potassium despite improving renal function with IV normal saline. May be due to hemolysis , especially with declining Hb/hct. Will check haptoglobin and give one dose of kayexalate. (3) Pneumonia Status: Acute Comment: clinically improved on antibiotics but recheck cxr shows infrahilar infiltrate. (4) COPD exacerbation Status: Acute Comment: improving with RT treatments. Taper down on IV steroids to po prednisone tomorrow. (5) Anxiety and depression Status: Chronic Comment: Continue current meds. (6) Dehydration Status: Acute Comment: recheck bmp shows improved bun/cr but persistent hyperkalemia. See above. (7) Paroxysmal A-fib Status: Chronic Comment: stable rhythm for now but watch for recurrence of rapid afib with pneumonia. Result Diagram: 11/22/18 0513 11/22/18 0513 Results 24hrs Laboratory Tests Test 11/22/18 05:13 White Blood Count 14.0 #H Red Blood Count 2.99 L Hemoglobin 8.8 L Hematocrit 29.1 L Mean Corpuscular Volume 97.3 Mean Corpuscular Hemoglobin 29.4 Mean Corpuscular Hemoglobin Concent 30.2 L Red Cell Distribution Width 15.7 H Platelet Count 196 Mean Platelet Volume 10.6 H Immature Granulocytes % 0.500 H Neutrophils % 86.7 H Lymphocytes % 5.6 L Monocytes % 7.1 Eosinophils % 0.0 Basophils % 0.1 Nucleated Red Blood Cells % 0.0 Immature Granulocytes # 0.070 H Neutrophils # 12.1 H Lymphocytes # 0.8 Monocytes # 1.0 H Eosinophils # 0.0 Basophils # 0.0 Nucleated Red Blood Cells # 0.0 Sodium Level 137 Potassium Level 5.5 H Chloride Level 104 Carbon Dioxide Level 18 L Anion Gap 15 H Blood Urea Nitrogen 53 H Creatinine 1.41 H Est Glomerular Filtrat Rate mL/min Glucose Level 86 Calcium Level 9.5 Subjective 24 Hr Interval Summary Free Text/Dictation Patient awake and oriented to person and place but confused re. events. Constitutional: no complaints Exam/Review of Systems Exam Vitals Vital Signs Date Temp Pulse Resp B/P (MAP) Pulse Ox O2 O2 Flow FiO2 Time Delivery Rate 11/22/18 75 20 93 21 13:23 11/22/18 98.5 122/57 Room Air 11:13 (78) 11/22/18 2.0 03:11 Intake and Output 11/21/18 11/21/18 11/22/18 1515:00 23:00 07:00 IntakeIntake Total 500 ml 1425 ml OutputOutput Total 600 ml 900 ml BalanceBalance -100 ml 525 ml Head: normocephalic, atraumatic ENMT: nl external ears & nose Respiratory: clear to auscultation, normal air movement Cardiovascular: regular rate and rhythm, nl pulses Gastrointestinal: soft, other (bilateral ostomies.) Results Results 24hrs Laboratory Tests Test 11/22/18 05:13 White Blood Count 14.0 #H Red Blood Count 2.99 L Hemoglobin 8.8 L Hematocrit 29.1 L Mean Corpuscular Volume 97.3 Mean Corpuscular Hemoglobin 29.4 Mean Corpuscular Hemoglobin Concent 30.2 L Red Cell Distribution Width 15.7 H Platelet Count 196 Mean Platelet Volume 10.6 H Immature Granulocytes % 0.500 H Neutrophils % 86.7 H Lymphocytes % 5.6 L Monocytes % 7.1 Eosinophils % 0.0 Basophils % 0.1 Nucleated Red Blood Cells % 0.0 Immature Granulocytes # 0.070 H Neutrophils # 12.1 H Lymphocytes # 0.8 Monocytes # 1.0 H Eosinophils # 0.0 Basophils # 0.0 Nucleated Red Blood Cells # 0.0 Sodium Level 137 Potassium Level 5.5 H Chloride Level 104 Carbon Dioxide Level 18 L Anion Gap 15 H Blood Urea Nitrogen 53 H Creatinine 1.41 H Est Glomerular Filtrat Rate mL/min Glucose Level 86 Calcium Level 9.5 BREEZY FRIAS MD Nov 22, 2018 13:37
--- NOTE | 2018-11-22 14:27 | NUR ---
PT EVALUATION , RN CLEARED ,PATIENT AGREEABLE , PATIENT IS ALERT AND AWAKE, HE IS A POOR HISTORIAN , ORIENTED TO NAME AND LAST NAME , DISORIENTED TO DAY , MONTH AND YEAR , ABLE TO FOLLOW ONE STEP COMMAND , BUT UNABLE TO GIVE ACCURATE INFORMATION REGARDING PLOF . PATIENT IS A 83 Y/O MALE WITH PMH : CAD, CANCERS/P BOWEL RESECTION , HTN , RENAL DISEASE ANXIETY ABD DEPRESSION , SACRAL DECUBITUS , HEAVY SMOKER AND COPD , ADMITTED TO [facility] DUE TO AMS, UTI, PNA AND COPD EXACERBATION . PATIENT FOUND IN BED ,INSTRUCTED THE PATIENT IN SAFETY FALL PRECAUTION , ABLE TO PERFORM AA/ROM BLE'S INCLUDING:AP, KNEE FLEX, EXT , ADD, ABD , SAQ AND SLR , PATIENT WITH MOD A SAT UP AT EOB ~ 20' WITH MAX A STOOD UP W/FWW , DUE TO SEVERE GENERALIZED WEAKNESS AND POOR FUNCTIONAL ENDURANCE UNABLE TO TAKE STEP RETURNED BACK TO BED WITH MOD , VS STABLE TOLERATED TREATMENT WELL , PATIENT IS CLEARED TO GET OOB [place] [facility] . A: PATIENT JUST CAME HOME FROM A SNF 2-3 WEEKS AGO, PATIENT UNABLE TO PROVIDE ACCURATE INFORMATION REGARDING PLOF , DC PLANNING PER MD RECOMMENDATION , RETURN HOME WITH 24 HRS ASSIST AND SUPERVISION ANF PT FOLLOW UP , NS SNF /REHAB PLACEMENT . P: PT DAILY X5 ( BED MOBILITY TR, THERA EXE'S TRANSFER TR , SITING , STANDING BALANCE EXE'S , PRE-GAIT TR W/FWW ADVANCE TO GAIT TR W/FWW WHEN ABLE , PATIENT EDUCATION AND FAMILY TRAINING .
[2018-11-22] MEDS ORDERED: NA POLYST SULFON 15 GM/60 ML BTL PO ONE (14:30)
--- NOTE | 2018-11-22 18:28 | NUR ---
EOSS PT IS STABLE, NO S/S OF DISTRESS, NO C/O PAIN. IV ATB GIVEN, REPOSITIONED EVERY 2 HOURS, WOUND CARE DONE. BED ALARM ON, CALL LIGHT WITHIN REACH, HOURLY ROUNDING DONE.
--- NOTE | 2018-11-22 19:40 | NUR ---
RN NOTE SPOKE TO DR. FRIAS REGARDING PT'S D.DIMER RESULT [phone]. NO NEW ORDER GIVEN.
[2018-11-22] MEDS: ATORVASTATIN 20 MG TAB PO SCH (21:11)
[2018-11-22] MEDS: DOCUSATE SODIUM 100 MG CAP PO SCH (21:11)
[2018-11-22] MEDS: MIRTAZAPINE 15 MG TAB PO SCH (21:12)
--- NOTE | 2018-11-22 22:58 | NUR ---
PATIENT NOTED TO BE PULLING OUT THERAPEUTIC DEVICES LIKE HIS OXYGEN AND IV ACCESS AND CLIMBING OUT OF BED. DR BREEZY FRIAS CALLED AND NOTIFIED, NEW ORDERS TO APPLY SOFT LIMB RESTRAINTS GIVEN, NOTED AND CARRIED OUT. RESTRAINT PROTOCOL INITIATED.
[2018-11-23] VITALS (19 sets, daily range): BP systolic 103–121; BP diastolic 52–68; PULSE 67–88; RESP 17–22
[2018-11-23] MEDS: CLINDAMYCIN 600 MG/D5W (PMX) 50 ML IVPB SCH ×6 (00:06→21:52)
[2018-11-23] MEDS: ALBUTEROL/IPRATROPIUM (NEB) 3 ML AMP INH SCH ×4 (01:42→19:21)
[2018-11-23] MEDS: ACETYLCYSTEINE 20% 4 ML VIAL NEB SCH ×4 (01:52→19:21)
[2018-11-23] MEDS: CEFAZOLIN 1 GM/50 ML (PMX) 50 ML IVPB SCH ×3 (05:25→22:00)
--- NOTE | 2018-11-23 06:06 | NUR ---
END OF THE SHIFT SUMMARY: PATIENT CONFUSED. 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 VS MONITORED AND STABLE. ON O2 2LPM/NC WITH O2 SAT AT 95-96%. NOTED TO BE PULLING THERAPEUTIC DEVICES AND CLIMBING OUT OF BED. DR. FRIAS NOTIFIED AT 2258 AND SOFT LIMB-UPPER RESTRAINTS ORDER GIVEN. APPLIED BILATERAL SOFT LIMB RESTRAINTS, CHECKED AND RELEASED EVERY 2 HOURS AND VS MONITORED ALSO EVERY 2 HOURS. FALL PRECAUTIONS MAINTAINED, BED IN LOW POSITION, CALL [place] WITHIN REACH, BED ALARM ON, HOURLY ROUNDS MAINTAINED. WOUND CARE RENDERED, VENELEX APPLIED TO SACRAL AREA AND BILATERAL HEELS COVERED WITH FOAM DRESSING. INCONTINENCE CARE RENDERED, KEPT CLEAN AND DRY. REPOSITIONED EVERY 2 HOURS. COLOSTOMY AND ILEOSTOMY CARE RENDERED.PATIENT ATTEMPTING TO REMOVE SOFT LIMB RESTRAINTS AT TIMES. EXPLAINED TO PT WHY IT NEED TO BE APPLIED, UNABLE TO COMPREHEND. WILL ENDORSED TO AM NURSE.
--- NOTE | 2018-11-23 06:21 | NUR ---
PATIENT FOR CT CHEST AND ULTRASOUND DUPLEX BOTH LOWER EXTREMITIES TODAY, ORDERED BY DR FRIAS.
[2018-11-23] MEDS: PANTOPRAZOLE (EC) 40 MG TAB PO SCH (06:27)
[2018-11-23] MEDS: FOLIC ACID 1 MG TAB PO SCH (08:18)
[2018-11-23] MEDS: DILTIAZEM (CD) 120 MG CAP PO SCH (08:18)
[2018-11-23] MEDS: predniSONE 10 MG TAB PO SCH (08:18)
[2018-11-23] MEDS: ASCORBIC ACID 500 MG TAB PO SCH ×2 (08:18→21:50)
[2018-11-23] MEDS: ARIPIPRAZOLE 5 MG TAB PO SCH (08:18)
[2018-11-23] MEDS: GUAIFENESIN LA 600 MG TABSR PO SCH ×2 (08:19→21:50)
[2018-11-23] MEDS: METOPROLOL 50 MG TAB PO SCH ×2 (08:19→21:51)
[2018-11-23] MEDS: FLUTICASONE/VILANTEROL 200-25 INH DEVICE INH SCH (08:20)
[2018-11-23] MEDS: BALSAM PERU/CASTOR OIL 60 GM TUBE TOP SCH (08:20)
--- NOTE | 2018-11-23 09:45 | NUR ---
Nurses Note: Pt. had no IV access. Paged ICU for Midline placement. Awaiting for call back. Addendum: 11/23/18 at 1746 by UMBERTO BOTELLO RN Update: Nurse Eldridge arrived from ICU to place a Peripheral Line [address] scan with Contrast. Nurse Eldridge unable to place an IV. NO nurses are available today for Midline Placement. Will continue to monitor.
--- NOTE | 2018-11-23 11:00 | NUR ---
PT NOTE Communicated w/attending ASHLEY Arrieta, per ASHLEY Arrieta, hold PT for today due to RN stating, "Pt just had an ultrasound performed and clots were found in his legs. Hold PT for today because I don't want him to be moved and have a clot dislodge. Hold PT until the Doctor decides what to do." Therefore PT services aren't able to be provided at this time. Will f/u on next PT session or until medically appropriate.
--- NOTE | 2018-11-23 15:28 | NUR ---
Nurses Note: Paged Dr. Harvey regarding results of Bilateral Venous Studies. Waiting for call back with orders.
--- NOTE | 2018-11-23 16:34 | PN ---
Date/Time of Note Date/Time of Note DATE: 11/23/18 TIME: 16:21 Assessment/Plan VTE Prophylaxis Risk score (from [facility] [place] [place]0 risk: 7 SCD applied (from [facility] [place] [place]): Yes Pharmacological prophylaxis: apixaban Lines/Catheters IV Catheter Type (from [facility]): Peripheral IV Urinary Cath still in place: No Assessment/Plan Problems: (1) Dvt femoral (deep venous thrombosis) Status: Acute Comment: Discussed with Retail Shift Supervisor , will start patient on Eliquis 10mg po bid. Qualifiers: Chronicity: acute Laterality: left Qualified Codes: I82.412 - Acute embolism and thrombosis of left femoral vein (2) Pneumonia Status: Acute Comment: Clinically improved on IV Ancef and Clinda for probable aspiration pneumonitis. Will change to po Augmentin for anticipate discharge to home soon. Qualifiers: Pneumonia type: aspiration pneumonia Aspiration pneumonia type: due to gastric secretions Laterality: bilateral Lung location: lower lobe of lung Qualified Codes: J69.0 - Pneumonitis due to inhalation of food and vomit (3) COPD exacerbation Status: Acute Comment: Improved oxygenation . Continue respiratory treatments and mucolytics. Continue steroid taper. (4) CHF (congestive heart failure) Status: Chronic (5) GERD with esophagitis Status: Chronic Comment: Continue pantoprazole and elevation of head of bed to prevent aspiration pneumonia and Campbell's dz. (6) Anemia Status: Chronic Comment: Worsening H/H may be due to thrombosis and dilutional . Doubt hemolysis with normal haptoglobin. Continue to monitor. (7) Dehydration Status: Acute Comment: Improved with IV fluids and resumption of diet. (8) Anxiety and depression Status: Chronic Comment: Depression stable on mirtazapine but patient has been more agitated in the evenings requiring restraints. Will follow and consider using IV ativan if needed. Result Diagram: 11/23/18 0509 11/23/18 0509 Results 24hrs Laboratory Tests Test 11/23/18 05:09 White Blood Count 10.2 # Red Blood Count 3.00 L Hemoglobin 8.8 L Hematocrit 29.1 L Mean Corpuscular Volume 97.0 Mean Corpuscular Hemoglobin 29.3 Mean Corpuscular Hemoglobin Concent 30.2 L Red Cell Distribution Width 16.0 H Platelet Count 167 Mean Platelet Volume 11.0 H Immature Granulocytes % 0.900 H Neutrophils % 76.6 Lymphocytes % 10.6 L Monocytes % 11.9 H Eosinophils % 0.0 Basophils % 0.0 Nucleated Red Blood Cells % 0.0 Immature Granulocytes # 0.090 H Neutrophils # 7.8 H Lymphocytes # 1.1 Monocytes # 1.2 H Eosinophils # 0.0 Basophils # 0.0 Nucleated Red Blood Cells # 0.0 Sodium Level 144 Potassium Level 4.2 Chloride Level 110 Carbon Dioxide Level 19 L Anion Gap 15 H Blood Urea Nitrogen 53 H Creatinine 1.21 Est Glomerular Filtrat Rate mL/min Glucose Level 86 Calcium Level 9.7 Subjective 24 Hr Interval Summary Constitutional: disoriented Exam/Review of Systems Exam Vitals Vital Signs Date Temp Pulse Resp B/P (MAP) Pulse Ox O2 O2 Flow FiO2 Time Delivery Rate 11/23/18 98.1 81 20 103/68 94 Nasal 16:11 (80) Cannula 11/23/18 2.0 13:37 11/22/18 19:47 Intake and Output 11/22/18 11/22/18 11/23/18 1515:00 23:00 07:00 IntakeIntake Total 100 ml 770 ml 650 ml OutputOutput Total 700 ml 700 ml BalanceBalance 100 ml 70 ml -50 ml Psych: confusion Head: normocephalic, atraumatic Respiratory: clear to auscultation Cardiovascular: regular rate and rhythm Results Results 24hrs Laboratory Tests Test 11/23/18 05:09 White Blood Count 10.2 # Red Blood Count 3.00 L Hemoglobin 8.8 L Hematocrit 29.1 L Mean Corpuscular Volume 97.0 Mean Corpuscular Hemoglobin 29.3 Mean Corpuscular Hemoglobin Concent 30.2 L Red Cell Distribution Width 16.0 H Platelet Count 167 Mean Platelet Volume 11.0 H Immature Granulocytes % 0.900 H Neutrophils % 76.6 Lymphocytes % 10.6 L Monocytes % 11.9 H Eosinophils % 0.0 Basophils % 0.0 Nucleated Red Blood Cells % 0.0 Immature Granulocytes # 0.090 H Neutrophils # 7.8 H Lymphocytes # 1.1 Monocytes # 1.2 H Eosinophils # 0.0 Basophils # 0.0 Nucleated Red Blood Cells # 0.0 Sodium Level 144 Potassium Level 4.2 Chloride Level 110 Carbon Dioxide Level 19 L Anion Gap 15 H Blood Urea Nitrogen 53 H Creatinine 1.21 Est Glomerular Filtrat Rate mL/min Glucose Level 86 Calcium Level 9.7 Medications Medication Current Medications Acetaminophen (Tylenol Tab) 650 mg Q4H PRN PO PAIN LEVEL 1-5 Last administered on 11/21/18 21:35; Admin Dose 650 MG; Start 11/19/18 at 02:00 Acetylcysteine (Mucomyst) 3 ml Q6H RESP THERAPY NEB Last administered on 11/23/18 13:34; Admin Dose 3 ML; Start 11/19/18 at 02:00 Aripiprazole (Abilify) 5 mg DAILY PO Last administered on 11/23/18 08:18; Admin Dose 5 MG; Start 11/19/18 at 09:00 Ascorbic Acid (Vitamin C) 500 mg BID PO Last administered on 11/23/18 08:18; Admin Dose 500 MG; Start 11/19/18 at 09:00 Atorvastatin Calcium (Lipitor) 20 mg QHS PO Last administered on 11/22/18 21:11; Admin Dose 20 MG; Start 11/19/18 at 21:00 Docusate Sodium (Colace) 200 mg QHS PO Last administered on 11/22/18 21:11; Admin Dose 200 MG; Start 11/19/18 at 21:00 Fluticasone/ Vilanterol (Breo Ellipta 200-25 Mcg Inh) 1 inh DAILY INH Last administered on 11/23/18 08:20; Admin Dose 1 INH; Start 11/19/18 at 09:00 Folic Acid (Folic Acid) 1 mg DAILY PO Last administered on 11/23/18 08:18; Admin Dose 1 MG; Start 11/19/18 at 09:00 Guaifenesin/ Dextromethorphan (Robitussin Dm Liquid Cup) 10 ml Q6H PRN PO COUGH Last administered on 11/22/18 22:48; Admin Dose 10 ML; Start 11/19/18 at 02:00 Albuterol/ Ipratropium (Duoneb) 3 ml Q6H RESP THERAPY INH Last administered on 11/23/18 13:32; Admin Dose 3 ML; Start 11/19/18 at 06:00 Metoprolol Tartrate (Lopressor) 50 mg BID PO Last administered on 11/23/18 08:19; Admin Dose 50 MG; Start 11/19/18 at 09:00 Mirtazapine (Remeron) 15 mg HS PO Last administered on 11/22/18 21:12; Admin Dose 15 MG; Start 11/19/18 at 21:00 Pantoprazole (Protonix Tab) 40 mg AC BREAKFAST PO Last administered on 11/23/18 06:27; Admin Dose 40 MG; Start 11/19/18 at 07:00 Guaifenesin (Mucinex) 600 mg BID PO Last administered on 11/23/18 08:19; Admin Dose 600 MG; Start 11/19/18 at 21:00 Cefazolin Sodium 50 ml @ 100 mls/hr Q8 IVPB Last administered on 11/23/18 05:25; Admin Dose 100 MLS/HR; Start 11/20/18 at 00:00 Clindamycin HCl/ Dextrose 50 ml @ 50 mls/hr Q6 IVPB Last administered on 11/23/18 05:30; Admin Dose 50 MLS/HR; Start 11/20/18 at 00:00 Diltiazem HCl (Cardizem Cd) 120 mg AM PO Last administered on 11/23/18 08:18; Admin Dose 120 MG; Start 11/21/18 at 09:00 Prednisone (Prednisone) 30 mg DAILY PO Last administered on 11/23/18 08:18; Admin Dose 30 MG; Start 11/23/18 at 09:00 BREEZY FRIAS MD Nov 23, 2018 16:31
--- NOTE | 2018-11-23 18:19 | NUR ---
EOSS: No acute events today during shift. Ultrasound of Bilateral Lower Extremity noted to have acute occlusive thrombus on left femoral and common vein. SCD's were removed. Dr. Lara was notified. Eliquis was ordered. Pt. CT scan with Contrast still pending due to not having an IV access. Pending Midline placement. Pt. remained on restraints due to episodes of confusion. Hourly rounding complete. All needs meet. Bed in lowest position. Bed alarm on. Will continue to monitor and report care to retail shift leader. No family at bedside today. Updated pt's over the phone.
--- NOTE | 2018-11-23 20:18 | NUR ---
PER RN, CT SCAN TO BE DONE AFTER PT. HAS MIDLINE INSERTED. EXAM ROLLED OVER FOR TOMORROW
[2018-11-23] MEDS: DOCUSATE SODIUM 100 MG CAP PO SCH (21:50)
[2018-11-23] MEDS: MIRTAZAPINE 15 MG TAB PO SCH (21:50)
[2018-11-23] MEDS: APIXABAN 5 MG TABLET PO SCH (21:50)
[2018-11-23] MEDS: ATORVASTATIN 20 MG TAB PO SCH (21:50)
[2018-11-24] VITALS (15 sets, daily range): BP systolic 103–160; BP diastolic 52–75; PULSE 67–79; RESP 18–20
[2018-11-24] MEDS: ACETYLCYSTEINE 20% 4 ML VIAL NEB SCH ×4 (01:41→19:31)
[2018-11-24] MEDS: ALBUTEROL/IPRATROPIUM (NEB) 3 ML AMP INH SCH ×4 (01:41→19:31)
[2018-11-24] MEDS: CEFAZOLIN 1 GM/50 ML (PMX) 50 ML IVPB SCH ×2 (05:24→15:14)
--- NOTE | 2018-11-24 06:05 | NUR ---
EOSS Pt. AAO x2. No s/s of respiratory distress or pain. Pt was taken to ER for midline placement, but ER , RN got busy and was not able to place one. Pt. got a peripheral Iv 22 on JENNIFER. Offered food, fluids, and toileting; assessed level of consciousness; assessed s/s of pain; and provided monitoring and reassessment for the need of soft limb restrained.Monitor if patient has adequate circulation, and checked skin color, temperature, and integrity. Dr Harvey renew soft restraint at 2008. Pt continues trying to remove heart monitor and oxygen and IV. No acute changes
[2018-11-24] MEDS: CLINDAMYCIN 600 MG/D5W (PMX) 50 ML IVPB SCH ×3 (06:18→13:11)
[2018-11-24] MEDS: PANTOPRAZOLE (EC) 40 MG TAB PO SCH (06:52)
[2018-11-24] MEDS: ARIPIPRAZOLE 5 MG TAB PO SCH (08:17)
[2018-11-24] MEDS: FLUTICASONE/VILANTEROL 200-25 INH DEVICE INH SCH (08:17)
[2018-11-24] MEDS: APIXABAN 5 MG TABLET PO SCH ×2 (08:18→20:30)
[2018-11-24] MEDS: DILTIAZEM (CD) 120 MG CAP PO SCH (08:18)
[2018-11-24] MEDS: predniSONE 10 MG TAB PO SCH (08:19)
[2018-11-24] MEDS: METOPROLOL 50 MG TAB PO SCH ×2 (08:19→20:31)
[2018-11-24] MEDS: FOLIC ACID 1 MG TAB PO SCH (08:19)
[2018-11-24] MEDS: GUAIFENESIN LA 600 MG TABSR PO SCH ×2 (08:19→20:31)
[2018-11-24] MEDS: ASCORBIC ACID 500 MG TAB PO SCH ×2 (08:19→20:31)
[2018-11-24] MEDS: BALSAM PERU/CASTOR OIL 60 GM TUBE TOP SCH (08:20)
--- NOTE | 2018-11-24 10:14 | NUR ---
Nurses Note: Spoke with Dr. Harvey regarding pt's scheduled CTA Chest Angiogram. Order is cancelled per MD. Will notify radiology.
--- NOTE | 2018-11-24 15:29 | PN ---
Date/Time of Note Date/Time of Note DATE: 11/24/18 TIME: 15:24 Assessment/Plan VTE Prophylaxis Risk score (from [facility])>0 risk: 7 SCD applied (from [facility]): No SCD contraindicated: other Pharmacological prophylaxis: apixaban Lines/Catheters IV Catheter Type (from [facility]): Peripheral IV Urinary Cath still in place: No Assessment/Plan Assessment/Plan Patient is an 83 year old man with left lower extremity DVT >DVT likely secondary to immobility I have deferred hypercoaguable work-up for now Patient is tolerating apixaban >Normocytic anemia Iron panel suggests anemia of chronic renal disease, and mild iron deficiency Consider iron supplementation. >COPD Continue supportive care. Result Diagram: 11/23/18 0509 11/23/18 0509 Results 24hrs Laboratory Tests Test 11/24/18 05:42 Iron Level 44 Total Iron Binding Capacity 258 Percent Iron Saturation 17 L Ferritin 237.0 Subjective 24 Hr Interval Summary Free Text/Dictation Patient awake, but not cooperative Denies any chest pain or shortness of breath Exam/Review of Systems Exam Vitals Vital Signs Date Temp Pulse Resp B/P (MAP) Pulse Ox O2 O2 Flow FiO2 Time Delivery Rate 11/24/18 97 2.0 14:45 11/24/18 73 20 Nasal 14:40 Cannula 11/24/18 98.0 118/62 12:20 (80) 11/22/18 21 19:47 Intake and Output 11/23/18 11/23/18 11/24/18 1515:00 23:00 07:00 IntakeIntake Total 530 ml 350 ml OutputOutput Total 350 ml 750 ml BalanceBalance 180 ml -400 ml Constitutional: alert, oriented Head: normocephalic Eyes: nl conjunctiva, EOMI Neck: supple, non-tender Respiratory: clear to auscultation, normal air movement Cardiovascular: regular rate and rhythm, nl pulses Gastrointestinal: soft Extremities: normal pulses Results Results 24hrs Laboratory Tests Test 11/24/18 05:42 Iron Level 44 Total Iron Binding Capacity 258 Percent Iron Saturation 17 L Ferritin 237.0 Medications Medication Current Medications Acetaminophen (Tylenol Tab) 650 mg Q4H PRN PO PAIN LEVEL 1-5 Last administered on 11/21/18at 21:35; Admin Dose 650 MG; Start 11/19/18 at 02:00 Acetylcysteine (Mucomyst) 3 ml Q6H RESP THERAPY NEB Last administered on 11/24/18 14:26; Admin Dose 3 ML; Start 11/19/18 at 02:00 Aripiprazole (Abilify) 5 mg DAILY PO Last administered on 11/24/18 08:17; Admin Dose 5 MG; Start 11/19/18 at 09:00 Ascorbic Acid (Vitamin C) 500 mg BID PO Last administered on 11/24/18 08:19; Admin Dose 500 MG; Start 11/19/18 at 09:00 Atorvastatin Calcium (Lipitor) 20 mg QHS PO Last administered on 11/23/18 21:50; Admin Dose 20 MG; Start 11/19/18 at 21:00 Docusate Sodium (Colace) 200 mg QHS PO Last administered on 11/23/18 21:50; Admin Dose 200 MG; Start 11/19/18 at 21:00 Fluticasone/ Vilanterol (Breo Ellipta 200-25 Mcg Inh) 1 inh DAILY INH Last administered on 11/24/18 08:17; Admin Dose 1 INH; Start 11/19/18 at 09:00 Folic Acid (Folic Acid) 1 mg DAILY PO Last administered on 11/24/18 08:19; Admin Dose 1 MG; Start 11/19/18 at 09:00 Guaifenesin/ Dextromethorphan (Robitussin Dm Liquid Cup) 10 ml Q6H PRN PO COUGH Last administered on 11/22/18 22:48; Admin Dose 10 ML; Start 11/19/18 at 02:00 Albuterol/ Ipratropium (Duoneb) 3 ml Q6H RESP THERAPY INH Last administered on 11/24/18 14:25; Admin Dose 3 ML; Start 11/19/18 at 06:00 Metoprolol Tartrate (Lopressor) 50 mg BID PO Last administered on 11/24/18 08:19; Admin Dose 50 MG; Start 11/19/18 at 09:00 Mirtazapine (Remeron) 15 mg HS PO Last administered on 11/23/18 21:50; Admin Dose 15 MG; Start 11/19/18 at 21:00 Pantoprazole (Protonix Tab) 40 mg AC BREAKFAST PO Last administered on 11/24/18 06:52; Admin Dose 40 MG; Start 11/19/18 at 07:00 Guaifenesin (Mucinex) 600 mg BID PO Last administered on 11/24/18 08:19; Admin Dose 600 MG; Start 11/19/18 at 21:00 Cefazolin Sodium 50 ml @ 100 mls/hr Q8 IVPB Last administered on 11/24/18at 15:14; Admin Dose 100 MLS/HR; Start 11/20/18 at 00:00 Clindamycin HCl/ Dextrose 50 ml @ 50 mls/hr Q6 IVPB Last administered on 11/24/18at 13:11; Admin Dose 50 MLS/HR; Start 11/20/18 at 00:00 Diltiazem HCl (Cardizem Cd) 120 mg AM PO Last administered on 11/24/18at 08:18; Admin Dose 120 MG; Start 11/21/18 at 09:00 Prednisone (Prednisone) 30 mg DAILY PO Last administered on 11/24/18 08:19; Admin Dose 30 MG; Start 11/23/18 at 09:00 Apixaban (Eliquis) 10 mg BID PO Last administered on 11/24/18 08:18; Admin Dose 10 MG; Start 11/23/18 at 21:00 MAKENNA GUERRA MD Nov 24, 2018 15:29
--- NOTE | 2018-11-24 17:25 | PN ---
Date/Time of Note Date/Time of Note DATE: 11/24/18 TIME: 17:23 Assessment/Plan VTE Prophylaxis Risk score (from Ns)>0 risk: 7 SCD applied (from [facility] [place]): Yes Pharmacological prophylaxis: apixaban Lines/Catheters IV Catheter Type (from Rust): Peripheral IV Urinary Cath still in place: No Assessment/Plan Assessment/Plan (1) Dvt femoral (deep venous thrombosis) Status: Acute Comment: Discussed with Manager Of Regulatory Affairs , start patient on Eliquis 10mg po bid. Anjali CBC in am to monitor fo anemia and thrombocytopenia. (2) Pneumonia Status: Acute Comment: Clinically improved on IV Ancef and Clinda for probable aspiration pneumonitis. Will change to po Augmentin for anticipate discharge to home soon. (3) COPD exacerbation Status: Acute Comment: Improved oxygenation . Continue respiratory treatments and mucol ytics. Continue steroid taper. (4) CHF (congestive heart failure) Status: Chronic (5) GERD with esophagitis Status: Chronic Comment: Continue pantoprazole and elevation of head of bed to prevent as piration pneumonia and Campbell's dz. (6) Anemia Status: Chronic Comment: Worsening H/H may be due to thrombosis and dilutional . Add Iron supplement per Hematology recommendation. (7) Dehydration Status: Acute Comment: Improved with IV fluids and resumption of diet. (8) Anxiety and depression Status: Chronic Comment: Depression stable on mirtazapine but patient has been more agitated in the evenings requiring restraints. Consider resuming valium. Result Diagram: 11/23/18 0509 11/23/18 0509 Results 24hrs Laboratory Tests Test 11/24/18 05:42 Iron Level 44 Total Iron Binding Capacity 258 Percent Iron Saturation 17 L Ferritin 237.0 Subjective 24 Hr Interval Summary Constitutional: disoriented Exam/Review of Systems Exam Vitals Vital Signs Date Temp Pulse Resp B/P (MAP) Pulse Ox O2 O2 Flow FiO2 Time Delivery Rate 11/24/18 79 16:01 11/24/18 98.0 18 109/52 98 15:27 (71) 11/24/18 2.0 14:45 11/24/18 Nasal 14:40 Cannula 11/22/18 21 19:47 Intake and Output 11/23/18 11/23/18 11/24/18 1515:00 23:00 07:00 IntakeIntake Total 530 ml 350 ml OutputOutput Total 350 ml 750 ml BalanceBalance 180 ml -400 ml Psych: confusion Head: normocephalic, atraumatic Eyes: EOMI ENMT: nl external ears & nose Respiratory: clear to auscultation, normal air movement Cardiovascular: regular rate and rhythm Gastrointestinal: soft, other Musculoskeletal: nl extremities to inspection Results Results 24hrs Laboratory Tests Test 11/24/18 05:42 Iron Level 44 Total Iron Binding Capacity 258 Percent Iron Saturation 17 L Ferritin 237.0 Medications Medication Current Medications Acetaminophen (Tylenol Tab) 650 mg Q4H PRN PO PAIN LEVEL 1-5 Last administered on 11/21/18 21:35; Admin Dose 650 MG; Start 11/19/18 at 02:00 Acetylcysteine (Mucomyst) 3 ml Q6H RESP THERAPY NEB Last administered on 11/24/18 14:26; Admin Dose 3 ML; Start 11/19/18 at 02:00 Aripiprazole (Abilify) 5 mg DAILY PO Last administered on 11/24/18 08:17; Admin Dose 5 MG; Start 11/19/18 at 09:00 Ascorbic Acid (Vitamin C) 500 mg BID PO Last administered on 11/24/18 08:19; Admin Dose 500 MG; Start 11/19/18 at 09:00 Atorvastatin Calcium (Lipitor) 20 mg QHS PO Last administered on 11/23/18 21:50; Admin Dose 20 MG; Start 11/19/18 at 21:00 Docusate Sodium (Colace) 200 mg QHS PO Last administered on 11/23/18 21:50; Admin Dose 200 MG; Start 11/19/18 at 21:00 Fluticasone/ Vilanterol (Breo Ellipta 200-25 Mcg Inh) 1 inh DAILY INH Last administered on 11/24/18 08:17; Admin Dose 1 INH; Start 11/19/18 at 09:00 Folic Acid (Folic Acid) 1 mg DAILY PO Last administered on 11/24/18 08:19; Admin Dose 1 MG; Start 11/19/18 at 09:00 Guaifenesin/ Dextromethorphan (Robitussin Dm Liquid Cup) 10 ml Q6H PRN PO COUGH Last administered on 11/22/18 22:48; Admin Dose 10 ML; Start 11/19/18 at 02:00 Albuterol/ Ipratropium (Duoneb) 3 ml Q6H RESP THERAPY INH Last administered on 11/24/18 14:25; Admin Dose 3 ML; Start 11/19/18 at 06:00 Metoprolol Tartrate (Lopressor) 50 mg BID PO Last administered on 11/24/18 08:19; Admin Dose 50 MG; Start 11/19/18 at 09:00 Mirtazapine (Remeron) 15 mg HS PO Last administered on 11/23/18 21:50; Admin Dose 15 MG; Start 11/19/18 at 21:00 Pantoprazole (Protonix Tab) 40 mg AC BREAKFAST PO Last administered on 11/24/18 06:52; Admin Dose 40 MG; Start 11/19/18 at 07:00 Guaifenesin (Mucinex) 600 mg BID PO Last administered on 11/24/18 08:19; Admin Dose 600 MG; Start 11/19/18 at 21:00 Cefazolin Sodium 50 ml @ 100 mls/hr Q8 IVPB Last administered on 11/24/18 15:14; Admin Dose 100 MLS/HR; Start 11/20/18 at 00:00 Clindamycin HCl/ Dextrose 50 ml @ 50 mls/hr Q6 IVPB Last administered on 11/24/18 13:11; Admin Dose 50 MLS/HR; Start 11/20/18 at 00:00 Diltiazem HCl (Cardizem Cd) 120 mg AM PO Last administered on 11/24/18 08:18; Admin Dose 120 MG; Start 11/21/18 at 09:00 Prednisone (Prednisone) 30 mg DAILY PO Last administered on 11/24/18 08:19; Admin Dose 30 MG; Start 11/23/18 at 09:00 Apixaban (Eliquis) 10 mg BID PO Last administered on 11/24/18 08:18; Admin Dose 10 MG; Start 11/23/18 at 21:00 BREEZY FRIAS MD Nov 24, 2018 17:25
--- NOTE | 2018-11-24 18:04 | NUR ---
EOSS: Pt. remained stable during shift. No acute events. Discontinued restraints today at 1400. Pt's family at bedside. Pt. calmly resting in bed after removal of restraints. Pt. did not pull on his IV or Hydrator Operator. Pt. occasionally tried to get out of bed but did not need restraints. Hourly rounding complete. All needs meet. Bed in lowest position. Bed alarm on. Changes colostomy and ileostomy bags during shift. Kept pt. clean and dry. Will continue to monitor and report care to shift supervisor.
[2018-11-24] MEDS: AMOXICILLIN/CLAV 500 MG TAB PO SCH (20:30)
[2018-11-24] MEDS: DOCUSATE SODIUM 100 MG CAP PO SCH (20:30)
[2018-11-24] MEDS: ATORVASTATIN 20 MG TAB PO SCH (20:30)
[2018-11-24] MEDS: MIRTAZAPINE 15 MG TAB PO SCH (20:31)
[2018-11-24] MEDS ORDERED: DIAZEPAM 5 MG TAB PO ONE (23:30)
[2018-11-25] VITALS (12 sets, daily range): BP systolic 116–133; BP diastolic 49–71; PULSE 56–76; RESP 18–20
[2018-11-25] MEDS: ALBUTEROL/IPRATROPIUM (NEB) 3 ML AMP INH SCH ×4 (01:19→19:46)
[2018-11-25] MEDS: ACETYLCYSTEINE 20% 4 ML VIAL NEB SCH ×4 (01:19→19:46)
[2018-11-25] MEDS: PANTOPRAZOLE (EC) 40 MG TAB PO SCH (06:04)
--- NOTE | 2018-11-25 06:34 | NUR ---
EOSS Pt AAO X2. No s/s of respiratory distress, pain or discomfort. pt was agitated last night. he was removing heart monitor, oxygen, gown and trying to get out of bed. Notified obtained an order for Valium. Medication effective. pt was able to rest through the night. No acute changes.Change ileostomy/colostomy bag. Reposition every 2 hours and encourage fluid intake
--- NOTE | 2018-11-25 07:06 | CONS ---
DATE OF ADMISSION: 11/18/2018 DATE OF CONSULTATION: REASON FOR CONSULTATION: Venous thromboembolism. HISTORY OF PRESENT ILLNESS: The patient is an 83-year-old man admitted several days ago after being noted to have a left lower extremity swelling. The patient was also noted to have change in mental s tatus and subsequently has been started on broad-spectrum antibiotics and empiric treatment of suspec arnulfo urinary tract infection and pneumonia. The patient was noted on left lower extremity Doppler com pleted today to have an acute occlusive thrombus of the left femoral and common femoral veins and I w as asked to give further recommendation in regard to treatment of said thrombosis. The patient has b een off of his feet and previously treated with sequential compression device. PAST MEDICAL HISTORY: Anxiety, depression, sacral decubitus ulcer, chronic obstructive pulmonary dis ease, hypertension. PAST SURGICAL HISTORY: Angioplasty and bowel resection. ALLERGIES: THE PATIENT HAS NO KNOWN DRUG ALLERGIES. MEDICATIONS: Per the reconciliation. FAMILY HISTORY: Negative for any thrombosis. SOCIAL HISTORY: The patient has a long history of tobacco abuse, previous alcohol use, but no intrav enous drugs. REVIEW OF SYSTEMS: Limited secondary to his current state of mind, but currently denies any chest pa in or shortness of breath. PHYSICAL EXAMINATION: VITAL SIGNS: Currently, the patient is afebrile, temperature 98.1, heart rate of 81, blood pressure 103/68, respiratory rate of 20. GENERAL: The patient is an elderly man but no respiratory distress, awake, alert. HEENT: Shows anicteric sclerae. Moist mucous membranes. NECK: Trachea midline with no bruits bilaterally. CHEST: Clear to auscultation bilaterally without wheezes, rubs or crackles. CARDIAC: Regular rate, normal S1 and S2. ABDOMEN: Soft, nontender, nondistended. EXTREMITIES: Shows no clubbing, cyanosis or edema. There is some more apparent engorgement of his l eft lower extremity veins, but no swelling noted. LABORATORY DATA: White blood cell count of 10.2, hemoglobin 8.8 with MCV of 97 and platelet count of 167. BUN is now 53 ____ was 39 and creatinine of 1.68. ASSESSMENT AND PLAN: An 83-year-old man with new left lower extremity deep vein thrombosis. 1. Left lower extremity deep vein thrombosis. This is likely secondary to his ongoing hospitalizati on. I would therefore recommend treatment with direct oral anticoagulant versus low molecular weight heparin versus Coumadin. All of these are appropriate medications at this time, but should direct o ral anticoagulant be chosen as discussed with Dr. Harvey, then likely apixaban would represent a better choice at initial starting dose at 10 mg twice daily for a week, followed by 5 mg twice daily. Give n his ongoing immobility, consideration should be given to extended thromboprophylaxis beyond 3 to 6 months. 2. Normocytic anemia. This is likely secondary to his anemia of chronic kidney disease and further evaluate with iron, vitamin B12 and folate. 3. Change in mental status. This is reportedly improved and currently under antibiotics. Thank you very much, Dr. Harvey, for allowing me to participate in the care of this patient. We will c ontinue to follow the patient with you. Dictated By: MAKENNA GUERRA MD CH/NTS Conf#: [id number] DID#: [id number] CC: BREEZY HARVEY MD;*End*
[2018-11-25] MEDS: APIXABAN 5 MG TABLET PO SCH ×2 (08:26→20:33)
[2018-11-25] MEDS: AMOXICILLIN/CLAV 500 MG TAB PO SCH ×3 (08:26→20:37)
[2018-11-25] MEDS: FLUTICASONE/VILANTEROL 200-25 INH DEVICE INH SCH (08:26)
[2018-11-25] MEDS: GUAIFENESIN LA 600 MG TABSR PO SCH ×2 (08:27→20:32)
[2018-11-25] MEDS: predniSONE 20 MG TAB PO SCH (08:27)
[2018-11-25] MEDS: ARIPIPRAZOLE 5 MG TAB PO SCH (08:27)
[2018-11-25] MEDS: FOLIC ACID 1 MG TAB PO SCH (08:27)
[2018-11-25] MEDS: ASCORBIC ACID 500 MG TAB PO SCH ×2 (08:27→20:32)
[2018-11-25] MEDS: DILTIAZEM (CD) 120 MG CAP PO SCH (08:28)
[2018-11-25] MEDS: METOPROLOL 50 MG TAB PO SCH ×2 (08:28→20:33)
[2018-11-25] MEDS: BALSAM PERU/CASTOR OIL 60 GM TUBE TOP SCH (08:40)
--- NOTE | 2018-11-25 15:20 | NUR ---
PT NOTE Therapy day number 3 Subjective Denies pain Pain Scale NUMERIC Pain Intensity 0 (0-10) Patient Stated Goal for Pain Relief 0 (0-10) Pain Level Comment denies pain Exercise Assessment Label Bilat Lower Extremity Exercise Type Active Assist ROM Additional Exercise Comments EOB: AP's, knee flex/ext, marches Exercise Start Time 15:20 Exercise End Time 15:35 Total Exercise Time 15 min (8-127) Transfer Training Start Time 15:35 Supine to Sit Moderate Assist Bed Mobility Sit to Supine Moderate Assist Sitting Tolerance 25 min Additional Mobility Comments Bed mobility w/HOB elevated using BR ModA 1PA, 2PA for safety Transfer Training End Time 16:00 Total Transfer Training Time 25 min (8-127) Additional Gait Comments Refused OOB activities, see PT note for details Weight Bearing Assessment Label Bilat Lower Extremity Weight Bearing Status Full Weight Bearing Static Sitting Balance Fair plus Dynamic Sitting Balance Fair minus Safety Judgement Poor Activity Tolerance Fair Equipment Present A pump IV pump Additional Equipment Present O2 2ML/NC . Post Treatment Pain Intensity 0 0-10 Variance Documentation SEE BELOW AND PT NOTE Total Treament Time 40 min (8-127) Total Minutes 40 Total Units 3 PT Technical Record Comment PT NOTE S: Pt stated, "I was sleeping." Agreeable for PT and cleared per ASHLEY Kimbrough. O: Received pt in semi-fowlers, asleep. Min VCs/TCs to rouse. Bed mobility w/HOB elevated using BR w/VCs/TCs for hand placement and sequence ModA 1PA, 2PA for safety. Pt performed EOB AAROM BLE thera ex, see above for exercises, 2 sets x 10 per exercise. Pt also performed static/dynamic sitting balance exercises: weight shifting side to side and forward/backward. Noted pt would close (B) eyes, therefore required occasionally cues to stay awake and maintain eyes opened. Tolerated sitting ~25 minutes. Pt reported fatigue and mild dizziness, therefore assisted BTB ModA 1PA, 2PA for safety. Positioned pt for comfort, call light/phone within reach, bed alarmed, and all needs met. ASHLEY Kimbrough informed of pt's status. A: Fair tolerance to tx. Pt showed no signs of distress or SOB during or after tx. No c/o pain or nausea throughout tx. Limited tx due to fatigue and dizziness. No OOB activities due to pt adamantly refusing despite max encouragement and pt being educated on the benefits and importance of OOB activities. Sitting tolerance improved compared to previous tx. P: Continue POC and progress as tolerated.
--- NOTE | 2018-11-25 17:46 | PN ---
DATE: 11/25/2018 SUBJECTIVE: The patient has no new complaints. Responds only briefly to questions. Denies chest pa in, cough or hemoptysis. OBJECTIVE: GENERAL: The patient is a well-developed, but chronically appearing male who is in no acute distress . VITAL SIGNS: Temperature 98, pulse 68 per minute and regular, respirations 18, blood pressure 133/67 , pulse oximetry 98% on 2 liters of oxygen by nasal cannula. SKIN: Pale with scattered ecchymoses and purpura. HEENT: Normocephalic. No evidence of trauma. Pupils are equal, round, react to light and accommoda tion. Sclerae are nonicteric. Oral mucosa is moist without lesions. There is no oral mucosal purpu ra. NECK: Supple. No jugular venous distention or thyroid enlargement. CHEST: Decreased breath sounds in both bases with some rhonchi. No pain on percussion of spine, louise rnum, clavicles or ribs. HEART: Regular sinus rhythm. No S3, S4 or murmurs. No rubs. ABDOMEN: Soft. There are no masses, no ascites. EXTREMITIES: No clubbing. No edema or cyanosis. No palpable cords or Homans sign. DIAGNOSTIC DATA: The lower extremity venous studies do demonstrate an acute occlusive thrombus in th e left femoral and common femoral veins. LABORATORY DATA: White count 11,300 with an absolute neutrophil count of 9100, hemoglobin 9.1, hemat ocrit 29.5 and platelet count is 196,000. ASSESSMENT: 1. Deep vein thrombosis of left common femoral vein. 2. Chronic obstructive pulmonary disease. 3. Sacral decubitus ulcer. 4. Pneumonia. DISCUSSION: The patient is presently receiving apixaban. He is about to start his third day of "Lod ine." There has been no appreciable change in hemoglobin and hematocrit or other evidence of bleedin g. We would continue him on apixaban at this time. The patient's platelet count is adequate. I have seen this patient previously with thrombocytopenia. Dictated By: TERENCE IBANEZ MD SR/NTS Conf#: [id number] DID#: [id number] CC: BREEZY FRIAS MD;*EndCC*
[2018-11-25] MEDS ORDERED: APIX5TAB PO (17:51)
[2018-11-25] MEDS ORDERED: GUAI600T23 PO (17:51)
[2018-11-25] MEDS ORDERED: AMOX1TAB9 PO (17:51)
[2018-11-25] MEDS ORDERED: DILT-9 PO (17:51)
--- NOTE | 2018-11-25 17:53 | DS ---
Date/Time of Note Date/Time of Note DATE: 11/25/18 TIME: 17:53 Discharge Summary Admission/Discharge Info Admit Date/Time Nov 18, 2018 at 23:24 Discharge Date/Time Nov 26, 2018 at 15:21 Discharge Diagnosis (1) Aspiration pneumonitis (2) Left femoral deep venous thrombosis (3) COPD exacerbation (4) CHF (congestive heart failure) (5) GERD with esophagitis (6) Anemia (7) Dehydration (8) Anxiety and depression Patient Condition: Fair Hx of Present Illness 83-year-old male with history of COPD and recurrent aspiration pneumonia from reflux esophagitis just came home from a long-term facility two weeks ago when he began having altered mental status. Patients brought him into the emergency room where he was noted to have a dirty urine and low oxygen saturation so patient was admitted for possible urinary tract infection and possible aspiration pneumonitis. Hospital Course Patient got chest CT which confirmed aspiration pneumonia at both bases. He was placed on IV antibiotics, respiratory treatments for his COPD and head of bed elevation to prevent aspiration. 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 He developed left leg swelling after 5 days of bedrest and venous doppler showed left femoral DVT. Heme/Onc consult suggest starting patient on Eliquis and following his CBC for recurrence of anemia and thrombocytopenia. Patient's CBC was stable on Eliquis for 2 days and he is discharged to home on po antibiotics with home health nursing for follow up. Home Meds Active Scripts Guaifenesin (Guaifenesin) 600 Mg Tablet.sa, 600 MG PO BID for 30 Days Prov:BREEZY HARVEY MD 11/25/18 Diltiazem Hcl (DILTIAZEM 24HR ER) 120 Mg Cap.er.24h, 120 MG PO AM for 30 Days, CAP Prov:BREEZY HARVEY MD 11/25/18 Apixaban* (Eliquis*) 5 Mg Tablet, 10 MG PO BID for 30 Days, #74 TAB 2 tablets twice a day for 1 week , then 1 tablet twice a day Prov:BREEZY HARVEY MD 11/25/18 Amoxicillin/Potassium Clav (Amox-Clav 500-125 mg Tablet) 500-125 mg Tab, 500 MG PO TID for 7 Days, #20 TAB Prov:BREEZY HARVEY MD 11/25/18 Pantoprazole* (Pantoprazole*) 40 Mg Tablet.dr, 40 MG PO AC BREAKFAST for 30 Days, TAB Prov:BREEZY HARVEY MD 10/02/18 Prednisone* (Prednisone*) 10 Mg Tab, 10 MG PO DAILY for 30 Days, TAB Prov:BREEZY HARVEY MD 10/02/18 Fluticasone/Vilanterol (Breo Ellipta 200-25 Mcg INH) 1 Each Blst.w.dev, 1 INH INH DAILY for 30 Days Prov:BREEZY HARVEY MD 10/02/18 Acetylcysteine* (Mucomyst*) 4 Ml Soln, 3 ML NEB Q6H RESP THERAPY for 30 Days Prov:BREEZY HARVEY MD 10/02/18 Aripiprazole* (Abilify*) 5 Mg Tab, 5 MG PO DAILY for 30 Days, TAB Prov:BREEZY HARVEY MD 10/02/18 Reported Medications Metoprolol Tartrate* (Lopressor*) 50 Mg Tab, 50 MG PO BID for HTN, #60 TAB 11/18/18 Mirtazapine* (Remeron*) 15 Mg Tablet, 15 MG PO HS, TAB 08/31/18 Diazepam* (Diazepam*) 5 Mg Tablet, 5 MG PO Q9PM, TAB 08/31/18 Ascorbic Acid (Vitamin C) 500 Mg Tab, 500 MG PO Q 9AM, TAB 08/31/18 Multivitamin with Minerals (Multivitamins with Minerals) 1 Each Tablet, 1 EACH PO DAILY, TAB 08/31/18 Docusate Sodium* (Colace*) 100 Mg Capsule, 200 MG PO QHS, #30 CAP 08/31/18 Acetaminophen* (Acetaminophen*) 325 Mg Tablet, 650 MG PO Q4H PRN for PAIN LEVEL 1-5, #30 TAB 08/31/18 Folic Acid* (Folic Acid*) 1 Mg Tablet, 1 MG PO DAILY, TAB 08/31/18 Ipratropium-Albuterol (Ipratropium-Albuterol) 0.5-3 Mg/3 Ml Ampul.neb, 3 ML INHALATION Q6, #30 VIAL 08/31/18 Atorvastatin Calcium* (Atorvastatin Calcium*) 20 Mg Tablet, 20 MG PO QHS, #30 TAB 06/03/18 Follow-up Plan See Dr. Harvey in 1 week. Primary Care Provider Breezy Harvey MD Time spent on discharge: > 30 minutes Pending Labs Laboratory Tests Test 11/25/18 05:06 White Blood Count 11.3 10^3/ul (4.8-10.8) Red Blood Count 3.11 10^6/ul (4.70-6.10) Hemoglobin 9.1 g/dl (14.0-18.0) Hematocrit 29.5 % (42.0-52.0) Mean Corpuscular Volume 94.9 fl (82.0-101.0) Mean Corpuscular Hemoglobin 29.3 pg (29.0-33.0) Mean Corpuscular Hemoglobin Concent 30.8 g/dl (32.0-37.0) Red Cell Distribution Width 16.2 % (11.5-14.5) Platelet Count 196 10^3/UL (140-415) Mean Platelet Volume 10.8 fl (7.4-10.4) Immature Granulocytes % 0.600 % (0.001-0.429) Neutrophils % 80.4 % (39.0-77.0) Lymphocytes % 10.0 % (15.0-51.0) Monocytes % 8.5 % (0.0-11.0) Eosinophils % 0.4 % (0.0-7.0) Basophils % 0.1 % (0.0-2.0) Nucleated Red Blood Cells % 0.0 /100WBC (0.0-0.0) Immature Granulocytes # 0.070 10^3/ul (0.0-0.031) Neutrophils # 9.1 10^3/ul (1.6-7.5) Lymphocytes # 1.1 10^3/ul (0.8-2.9) Monocytes # 1.0 10^3/ul (0.3-0.9) Eosinophils # 0.1 10^3/ul (0.0-0.5) Basophils # 0.0 10^3/ul (0.0-0.1) Nucleated Red Blood Cells # 0.0 10^3/ul (0.0-0.0) Sodium Level 146 mmol/L (135-144) Potassium Level 3.7 mmol/L (3.5-5.1) Chloride Level 109 mmol/L (97-110) Carbon Dioxide Level 26 mmol/L (21-31) Anion Gap 11 (5-13) Blood Urea Nitrogen 40 mg/dl (7-20) Creatinine 1.03 mg/dl (0.61-1.24) Est Glomerular Filtrat Rate mL/min mL/min (>60) Glucose Level 75 mg/dl (70-220) Calcium Level 9.6 mg/dl (8.4-10.2) BREEZY HARVEY MD Nov 25, 2018 17:53
--- NOTE | 2018-11-25 19:10 | NUR ---
Pt is sleepy. Noted he's lethargic. Noted no facial grimacing r/t pain or discomfort. On o2 via nasal cannula. On bedrest. On going ABX PO. Will encourage to drink fluids. Bed alarm on ,call light within reach. Will reposition q 2 hours and prn.
[2018-11-25] MEDS: DOCUSATE SODIUM 100 MG CAP PO SCH (20:32)
[2018-11-25] MEDS: MIRTAZAPINE 15 MG TAB PO SCH (20:32)
[2018-11-25] MEDS: ATORVASTATIN 20 MG TAB PO SCH (20:32)
--- NOTE | 2018-11-25 22:40 | NUR ---
Pt able to respond when calling his name. Able to take his meds crushed with apple sauce. Able to eat custard and had a cup of juice an had a cup of water. Repositioned for comfort. Will continue monitor.
[2018-11-25] MEDS ORDERED: DIAZEPAM 5 MG TAB PO ONE (23:00)
[2018-11-26] VITALS (11 sets, daily range): BP systolic 93–149; BP diastolic 53–72; PULSE 54–80; RESP 16–20
--- NOTE | 2018-11-26 01:18 | NUR ---
Didn't give pt's Valium order since pt is calm and for most of the time, he's asleep. Bed alarm on ,call light within reach. Hourly rounds and prn.
[2018-11-26] MEDS: ACETYLCYSTEINE 20% 4 ML VIAL NEB SCH ×4 (03:09→19:54)
[2018-11-26] MEDS: ALBUTEROL/IPRATROPIUM (NEB) 3 ML AMP INH SCH ×4 (03:10→19:54)
[2018-11-26] MEDS: PANTOPRAZOLE (EC) 40 MG TAB PO SCH (04:38)
--- NOTE | 2018-11-26 05:40 | NUR ---
Pt is more awake now. Able to drink more fluids. Responds when being asked.Colostomy bag has an output of 400ml greenish/brownish liquidy stool. No ileostomy output. Inc of bladder x 2. Will endorse to morning nurse about the transport for pt's discharge.
[2018-11-26] MEDS: APIXABAN 5 MG TABLET PO SCH ×2 (08:45→20:16)
[2018-11-26] MEDS: FOLIC ACID 1 MG TAB PO SCH (08:45)
[2018-11-26] MEDS: AMOXICILLIN/CLAV 500 MG TAB PO SCH ×3 (08:45→20:21)
[2018-11-26] MEDS: ASCORBIC ACID 500 MG TAB PO SCH ×2 (08:45→20:16)
[2018-11-26] MEDS: GUAIFENESIN LA 600 MG TABSR PO SCH ×2 (08:45→20:16)
[2018-11-26] MEDS: ARIPIPRAZOLE 5 MG TAB PO SCH (08:45)
[2018-11-26] MEDS: predniSONE 20 MG TAB PO SCH (08:45)
[2018-11-26] MEDS: DILTIAZEM (CD) 120 MG CAP PO SCH (08:46)
[2018-11-26] MEDS: FLUTICASONE/VILANTEROL 200-25 INH DEVICE INH SCH (08:47)
[2018-11-26] MEDS: METOPROLOL 50 MG TAB PO SCH ×2 (08:47→20:22)
[2018-11-26] MEDS: BALSAM PERU/CASTOR OIL 60 GM TUBE TOP SCH (08:48)
--- NOTE | 2018-11-26 10:11 | NUR ---
[facility] DISCHARGE NOTES: Plan is for dc home to family care today. [facility] [phone] to pickup pt at 5:00pm today (TRIP #: [id number]). S/w pt's son Venkatesh stating no one at home until 5:30pm today to accept pt. RN made aware. Will followup as needed. Elliot DOBBINS [phone]
--- NOTE | 2018-11-26 10:16 | NUR ---
Tired to contact Dr Harvey regarding pt's discharge. waited in line 10 min, no answer. will wait for Dr Harvey. pt is scheduled for pickle maker at 5 pm DC home. will monitor.
--- NOTE | 2018-11-26 13:30 | NUR ---
PT Note Therapy day number 4 Subjective Denies pain Pain Scale NUMERIC Pain Intensity 0 (0-10) Patient Stated Goal for Pain Relief 0 (0-10) Pain Level Comment denies pain Exercise Assessment Label Bilat Lower Extremity Exercise Type Active ROM Additional Exercise Comments sitting EOB: lateral trunk lean 3-3x, pt needed Juanita 1x Exercise Start Time 13:30 Exercise End Time 13:45 Total Exercise Time 15 min (8-127) Transfer Training Start Time 13:45 Supine to Sit Supervised Transfer Sit to Stand Ability Minimum Assist Bed Mobility Sit to Supine Supervised Sitting Tolerance 20 min Additional Mobility Comments supervision only for sitting EOB, VCs for handplacement sit-stand Transfer Training End Time 14:00 Total Transfer Training Time 15 min (8-127) Gait Training Start Time 14:00 Gait Assist Levels Minimum Assist Assistive Devices Front Wheel Walker Additional Gait Comments pre-gait side-side, fwd-back, 4 steps to the L at bedside, sitting breaks Gait Training End Time 14:15 Total Gait Training Treatment Time 15 min (8-127) Static Sitting Balance Fair plus Dynamic Sitting Balance Fair Standing Static Balance Fair minus Dynamic Standing Balance Poor plus Additional Balance Assessments Comments with FWW Safety Judgement Fair Activity Tolerance Poor Additional Equipment Present 2L O2 via NC Post Treatment Pain Intensity 0 0-10 Total Treament Time 45 min (8-127) Total Minutes 45 Total Units 3 PT Technical Record Comment S: Pt found supine in bed, is agreeable to PT. RN cleared pt for activity. O: Pt was seen for bed mobility, transfers, and gait. Pt tolerated sitting EOB with supervision, required Juanita for sit-stand with FWW, able to take 4 small steps to the L at side of the bed with frequent sitting breaks throughout. Pt assisted back to bed with call light nearby, bed alarm on, tray table at bedside and all needs met. Pt educated on importance of regular activity and need to call staff auditor before trying to get out of bed. RN informed of pt response to activity. A: Pt demonstrates improved tolerance and independence for mobility, able to ambulate with small, shaky steps at bedside, heavy BUE support on the FWW, flexed posture and assistance with FWW. Pt is easily fatigued, with poor standing balance, poor tolerance for activity, and requires assistance for all OOB activities. P: Continue POC. Progress gait as tolerated. 1PA at bedside, 2PA to progress gait.
[2018-11-26] MEDS: ACETAMINOPHEN 325 MG TAB PO PRN (18:18)
--- NOTE | 2018-11-26 18:25 | NUR ---
DC instructions were given, Pt's verbalized understanding of given instructions. Pt will be picked up at 1830. Will monitor.
--- NOTE | 2018-11-26 19:30 | NUR ---
Pt is alert and oriented x2-3. Pt's is with him. Waiting for the transport but would like to have his noc meds and breathing tx if possible while waiting for the transport. Mian pain. Noted no facial grimacing r/t pain or discomfort. Needs 2 person assist. Colostomy bag is now empty emptied by the morning nurse this evening. Ileostomy non functional. As per morning nurse, all instructions were give including scripts. All I need to do is remove the ID band. WIll follow up the transport.
--- NOTE | 2018-11-26 20:15 | NUR ---
Given his breathing tx by the RT. Given noc meds. Transport is now here. Will give a report.
[2018-11-26] MEDS: ATORVASTATIN 20 MG TAB PO SCH (20:16)
[2018-11-26] MEDS: MIRTAZAPINE 15 MG TAB PO SCH (20:16)
[2018-11-26] MEDS: DOCUSATE SODIUM 100 MG CAP PO SCH (20:21)
--- NOTE | 2018-11-26 21:00 | NUR ---
Pt is still here but be leaving soon. Just waiting for the transport to be ready to transfer pt from the hospital to home. Pt and are ok.
--- NOTE | 2018-11-26 21:03 | NUR ---
Pt left the unit with and 2 transporters via stretcher. Pt and the is very appreciative of the care given.
== END 2018-11-26 21:03 | disposition home or self-care (01) | DRG 177 ==
LOC: E/R 19:38 → ICU 23:24 → 6WM 11-19 18:58
PROVIDERS: ADMIT Internal Medicine; ATTEND Internal Medicine
DX: J69.0 Pneumonitis due to inhalation of food and vomit (principal); G92 Toxic encephalopathy; I82.412 Acute embolism and thrombosis of left femoral vein; J44.1 Chronic obstructive pulmonary disease with (acute) exacerbation; L89.159 Pressure ulcer of sacral region, unspecified stage; K21.0 Gastro-esophageal reflux disease with esophagitis; F41.9 Anxiety disorder, unspecified; F32.9 Major depressive disorder, single episode, unspecified; E86.0 Dehydration; E87.5 Hyperkalemia; D64.9 Anemia, unspecified
CPT/HCPCS: 36415; 70450; 71045; 71250; 80048; 80053; 81001; 82140; 82728; 82962; 83010; 83540; 83605; 84484; 85025; 85378; 85610; 85651; 85730; 87040; 87045; 87081; 87086; 90686; 93005; 93970; 94640; 94664; 94667; 94668; 94669; 97110; 97116; 97161; 97530; J0690; J0692; J2920; J3370; J7512

== ENCOUNTER 2018-12-17 13:22 | Emergency (ER) | payer MEDICARE, BC ==
[~2018-12-17] VITALS: Ht 172.7 cm; Wt 90.9 kg
[~2018-12-17 13:22] MED LIST changes: -AMIN30LI PO; +AMOX1TAB9 PO; -AMOX250C PO; +APIX5TAB PO; +DILT-9 PO; -DILT120C77 PO; -DOXY100T21 PO; -ESCI10TA48 PO; -GINK120C PO; -GUAI5SYR2 PO; -MAGN400O19 PO; -MAGN400T28 PO; +METO-429 PO; -METO-448 PO; -SAN30GM TOP
[2018-12-17 13:27] VITALS: Ht 172.7 cm; Wt 90.9 kg
[2018-12-17] MEDS ORDERED: ACETAMINOPHEN 500 MG TAB PO STA (13:59)
--- NOTE | 2018-12-17 14:23 | ERD ---
ER Documentation Chief Complaint Chief Complaint glf without head injury. c/o L hip and buttock pain HPI 83-year-old male brought in by ambulance after a ground-level fall onto his buttocks. Get his wheelchair in to the house from the patio. His hands slipped and he fell backwards onto his buttocks. He complains of lower back pain, aching, worse with movement, currently 6 out of 10. Denies any hip pain, upper back pain, head injury, loss of consciousness, chest pain or shortness of breath. No numbness or tingling in the extremities. ROS All systems reviewed and are negative except as per history of present illness. Medications Home Meds Active Scripts Guaifenesin (Guaifenesin) 600 Mg Tablet.sa, 600 MG PO BID for 30 Days Prov:BREEZY FRIAS MD 11/25/18 Diltiazem Hcl (DILTIAZEM 24HR ER) 120 Mg Cap.er.24h, 120 MG PO AM for 30 Days, CAP Prov:BREEZY FRIAS MD 11/25/18 Apixaban* (Eliquis*) 5 Mg Tablet, 10 MG PO BID for 30 Days, #74 TAB 2 tablets twice a day for 1 week , then 1 tablet twice a day Prov:BREEZY FRIAS MD 11/25/18 Amoxicillin/Potassium Clav (Amox-Clav 500-125 mg Tablet) 500-125 mg Tab, 500 MG PO TID for 7 Days, #20 TAB Prov:BREEZY FRIAS MD 11/25/18 Pantoprazole* (Pantoprazole*) 40 Mg Tablet.dr, 40 MG PO AC BREAKFAST for 30 Days, TAB Prov:BREEZY FRIAS MD 10/02/18 Prednisone* (Prednisone*) 10 Mg Tab, 10 MG PO DAILY for 30 Days, TAB Prov:BREEZY FRIAS MD 10/02/18 Fluticasone/Vilanterol (Breo Ellipta 200-25 Mcg INH) 1 Each Blst.w.dev, 1 INH INH DAILY for 30 Days Prov:BREEZY FRIAS MD 10/02/18 Acetylcysteine* (Mucomyst*) 4 Ml Soln, 3 ML NEB Q6H RESP THERAPY for 30 Days Prov:BREEZY FRIAS MD 10/02/18 Aripiprazole* (Abilify*) 5 Mg Tab, 5 MG PO DAILY for 30 Days, TAB Prov:BREEZY FRIAS MD 10/02/18 Reported Medications Metoprolol Tartrate* (Lopressor*) 50 Mg Tab, 50 MG PO BID for HTN, #60 TAB 11/18/18 Mirtazapine* (Remeron*) 15 Mg Tablet, 15 MG PO HS, TAB 08/31/18 Diazepam* (Diazepam*) 5 Mg Tablet, 5 MG PO Q9PM, TAB 08/31/18 Ascorbic Acid (Vitamin C) 500 Mg Tab, 500 MG PO Q 9AM, TAB 08/31/18 Multivitamin with Minerals (Multivitamins with Minerals) 1 Each Tablet, 1 EACH PO DAILY, TAB 08/31/18 Docusate Sodium* (Colace*) 100 Mg Capsule, 200 MG PO QHS, #30 CAP 08/31/18 Acetaminophen* (Acetaminophen*) 325 Mg Tablet, 650 MG PO Q4H PRN for PAIN LEVEL 1-5, #30 TAB 08/31/18 Folic Acid* (Folic Acid*) 1 Mg Tablet, 1 MG PO DAILY, TAB 08/31/18 Ipratropium-Albuterol (Ipratropium-Albuterol) 0.5-3 Mg/3 Ml Ampul.neb, 3 ML INHALATION Q6, #30 VIAL 08/31/18 Atorvastatin Calcium* (Atorvastatin Calcium*) 20 Mg Tablet, 20 MG PO QHS, #30 TAB 06/03/18 Allergies Allergies: Coded Allergies: No Known Allergy (Unverified , 12/17/18) PMhx/Soc History of Surgery: Yes (COLOSTOMY PLACEMENT (RIGHT ABD/ THEN LEFT ABDOMEN)) Anesthesia Reaction: No Hx Neurological Disorder: Yes (WEAKNESS BOTH LOWER EXTREMITIES) Hx Respiratory Disorders: Yes (EMPHYSEMA) Hx Cardiac Disorders: Yes (HTN) Hx Psychiatric Problems: Yes Hx Miscellaneous Medical Probl: No Hx Alcohol Use: Yes Hx Substance Use: No Hx Tobacco Use: No Smoking Status: Never smoker FmHx Family History: No diabetes Physical Exam Vitals Vital Signs Date Temp Pulse Resp B/P (MAP) Pulse Ox O2 O2 Flow FiO2 Time Delivery Rate 12/17/18 98.4 72 19 138/78 100 Room Air 17:25 (98) 12/17/18 99.2 84 18 140/62 98 13:27 (88) Physical Exam Const: No acute distress Head: Atraumatic Eyes: Normal Conjunctiva ENT: Normal External Ears, Nose and Mouth. Neck: Full range of motion. No meningismus. Resp: Clear to auscultation bilaterally Cardio: Regular rate and rhythm, no murmurs Abd: Colostomy noted. Abdominal well-healed surgical scars. Soft, non tender, non distended. Normal bowel sounds Skin: No petechiae or rashes. Old bruises on bilateral upper extremities Back: No midline tenderness. No sacral tenderness. No step-offs. Mild bilateral paraspinal muscle tenderness in the lumbar region. No ecchymoses. Ext: Normal to inspection and palpation without any deformities. No joint swelling. Full range of motion at all joints without pain. Neur: Awake and alert, oriented, normal speech, cranial nerves intact, strength and sensations intact grossly in all 4 extremities Psych: Normal Mood and Affect Results 24 hrs Current Medications Medications Dose Sig/Rolando Start Time Status Last (Trade) Ordered Route PRN Stop Time Admin Dose Reason Admin 1,000 mg ONCE STAT 12/17/18 DC 12/17/18 Acetaminophen PO 13:59 14:55 (Tylenol 12/17/18 14:01 Tab) Procedures/MDM EMERGENT LABS AND DIAGNOSTIC STUDIES: Radiology Results as interpreted by Radiology below were reviewed by Mathew Burch MD: CT Lumbar spine: IMPRESSION: 1. Transitional lumbosacral anatomy with counting as detailed above. Careful review of imaging is recommended prior to any intervention. 2. Linear lucencies at the superior endplate of L1 not present on prior exams, likely representing acute mild compression fracture. Consider MRI for further evaluation. 3. Chronic compression deformity of L2 vertebral body similar to prior exams. 4. Levoscoliosis and multilevel degenerative disc and facet disease with 2.5 mm retrolisthesis at L5-S1. 5. Multilevel neural foraminal narrowing as detailed above level by level. 6. Multilevel spinal canal stenosis and subarticular recess narrowing, moderate at L3-L4, with multiple additional levels as detailed above. 7. Osteopenia. RPTAT: BBDD Golden Dumont Physician Date Time Electronically viewed and signed by Golden Dumont, Physician on 12/17/2018 15:26 XR Pelvis: no acute abnormalities Initial Nursing notes reviewed. Previous Medical Records requested via the Electronic Health Record. EMERGENCY DEPARTMENT COURSE / MEDICAL DECISION MAKING: Patient is presenting after mechanical ground level fall complaining of mild low back pain. VItals are stable. No evidence of significant trauma on exam. Given his age and risk of osteoporosis and risk of fractures from low energy injuries, CT of the lumbar spine was done and showed mild compression deformity of L1. No evidence of spinal cord compression on exam. Patient is neurovascularly intact, at his baseline. PAin was controlled with tylenol. I discussed the result with the patient and his and son at bedside. I offered admission for PT and pain control if desired. o surgical intervention would be immediately necessary for this type of injury. They feel comfortable going home with continued outpatient PCP followup with referral to computer training specialist for TLSO brace. Fall precautions discussed. Return precautions given. OTC analgesics recommended for pain control as needed. Patient's blood pressure was elevated (>120/80) but appears stable without evidence of hypertensive emergency or urgency. The patient was counseled about the risks of hypertension and urged to pursue outpatient monitoring and therapy within a week with their primary care physician. Departure Diagnosis: Primary Impression: Closed compression fracture of L1 vertebra Encounter type: initial encounter Qualified Codes: S32.010A - Wedge compression fracture of first lumbar vertebra, initial encounter for closed fracture Additional Impression: Fall from ground level Condition: Stable IKMMY BURCH MD Dec 17, 2018 14:23
[2018-12-17 17:25] VITALS: BP 138/78; PULSE 72; RESP 19
== END 2018-12-17 17:25 | disposition home or self-care (01) ==
LOC: E/R 13:22
DX: S32.010A Wedge compression fracture of first lumbar vertebra, initial encounter for closed fracture (principal); I10 Essential (primary) hypertension; W01.0XXA Fall on same level from slipping, tripping and stumbling without subsequent striking against object, initial encounter; Y92.9 Unspecified place or not applicable
CPT/HCPCS: 72131; 72170

== ENCOUNTER 2019-01-09 16:10 | Inpatient (IN) | payer MEDICARE, BC ==
[~2019-01-09] VITALS: Ht 172.7 cm; Wt 72.7 kg
[2019-01-09 16:21] VITALS: Ht 172.7 cm; Wt 72.7 kg
--- NOTE | 2019-01-09 16:29 | ERD ---
ER Documentation Chief Complaint Chief Complaint Altered mental status HPI 83-year-old male of hypertension, COPD, coronary artery disease status post PCI, ischemic colitis status status post resection, colostomy colostomy, paroxysmal atrial fibrillation, congestive heart failure, pneumonia, GERD, DVT and heparin induced thrombocytopenia presents to the ED via rescue ambulance for evaluation of altered mental status. As per EMS, son reported that since this afternoon his father is not responding normally. Patient reports that he feels fine. Denies chest pain or palpitations. No abdominal pain nausea or vomiting. Denies dysuria or polyuria. Denies headache neck or back pain. No fevers or chills. ROS All systems reviewed and are negative except as per history of present illness. Medications Home Meds Reported Medications Fluticasone/Vilanterol (Breo Ellipta 200-25 Mcg INH) 1 Each Blst.w.dev, 1 PUFF INHALATION DAILY, #1 INHALER 01/09/19 Prednisone* (Prednisone*) 5 Mg Tab, 5 MG PO DAILY, TAB TAKE 1 OR 2 TAB NEEDED 01/09/19 Aripiprazole* (Abilify*) 5 Mg Tab, 5 MG PO DAILY, #30 TAB 01/09/19 Diltiazem Hcl (Diltiazem) 120 Mg Capsr, 120 MG PO QAM, #30 CAP 01/09/19 Pantoprazole* (Pantoprazole*) 40 Mg Tablet.dr, 40 MG PO AC BREAKFAST, TAB 01/09/19 Mirtazapine* (Mirtazapine*) 15 Mg Tablet, 15 MG PO HS, TAB 01/09/19 Metoprolol Tartrate* (Lopressor*) 50 Mg Tab, 50 MG PO BID, #60 TAB 01/09/19 Docusate Sodium* (Colace*) 100 Mg Capsule, 100 MG PO QHS, #30 CAP 01/09/19 Diazepam* (Diazepam*) 2 Mg Tablet, 2 MG PO QHS, TAB 01/09/19 Atorvastatin Calcium* (Atorvastatin Calcium*) 20 Mg Tablet, 20 MG PO QHS, #30 TAB 01/09/19 Acetaminophen* (Acetaminophen*) 325 Mg Tablet, 650 MG PO NEEDED PRN for PAIN AND OR ELEVATED TEMP, #30 TAB 01/09/19 Salmeterol Xinaf-Fluticasone* (Advair*) 500/50 Diskus Inhaler, 1 INH INHALATION BID, #1 INHALER 01/09/19 Calcium Carbonate* (Calcium Carbonate*) 600 MG Ca Tab, 600 MG PO BID, TAB 01/09/19 Apixaban* (Eliquis*) 5 Mg Tablet, 5 MG PO BID, TAB 01/09/19 Discontinued Reported Medications Metoprolol Tartrate* (Lopressor*) 50 Mg Tab, 50 MG PO BID for HTN, #60 TAB 11/18/18 Mirtazapine* (Remeron*) 15 Mg Tablet, 15 MG PO HS, TAB 08/31/18 Diazepam* (Diazepam*) 5 Mg Tablet, 5 MG PO Q9PM, TAB 08/31/18 Ascorbic Acid (Vitamin C) 500 Mg Tab, 500 MG PO Q 9AM, TAB 08/31/18 Multivitamin with Minerals (Multivitamins with Minerals) 1 Each Tablet, 1 EACH PO DAILY, TAB 08/31/18 Docusate Sodium* (Colace*) 100 Mg Capsule, 200 MG PO QHS, #30 CAP 08/31/18 Acetaminophen* (Acetaminophen*) 325 Mg Tablet, 650 MG PO Q4H PRN for PAIN LEVEL 1-5, #30 TAB 08/31/18 Folic Acid* (Folic Acid*) 1 Mg Tablet, 1 MG PO DAILY, TAB 08/31/18 Ipratropium-Albuterol (Ipratropium-Albuterol) 0.5-3 Mg/3 Ml Ampul.neb, 3 ML INHALATION Q6, #30 VIAL 08/31/18 Atorvastatin Calcium* (Atorvastatin Calcium*) 20 Mg Tablet, 20 MG PO QHS, #30 TAB 06/03/18 Discontinued Scripts Guaifenesin (Guaifenesin) 600 Mg Tablet.sa, 600 MG PO BID for 30 Days Prov:BREEZY HARVEY MD 11/25/18 Diltiazem Hcl (DILTIAZEM 24HR ER) 120 Mg Cap.er.24h, 120 MG PO AM for 30 Days, CAP Prov:BREEZY HARVEY MD 11/25/18 Apixaban* (Eliquis*) 5 Mg Tablet, 10 MG PO BID for 30 Days, #74 TAB 2 tablets twice a day for 1 week , then 1 tablet twice a day Prov:BREEZY HARVEY MD 11/25/18 Amoxicillin/Potassium Clav (Amox-Clav 500-125 mg Tablet) 500-125 mg Tab, 500 MG PO TID for 7 Days, #20 TAB Prov:BREEZY HARVEY MD 11/25/18 Pantoprazole* (Pantoprazole*) 40 Mg Tablet.dr, 40 MG PO AC BREAKFAST for 30 Days, TAB Prov:BREEZY HARVEY MD 10/02/18 Prednisone* (Prednisone*) 10 Mg Tab, 10 MG PO DAILY for 30 Days, TAB Prov:BREEZY HARVEY MD 10/02/18 Fluticasone/Vilanterol (Breo Ellipta 200-25 Mcg INH) 1 Each Blst.w.dev, 1 INH INH DAILY for 30 Days Prov:BREEZY HARVEY MD 10/02/18 Acetylcysteine* (Mucomyst*) 4 Ml Soln, 3 ML NEB Q6H RESP THERAPY for 30 Days Prov:BREEZY HARVEY MD 10/02/18 Aripiprazole* (Abilify*) 5 Mg Tab, 5 MG PO DAILY for 30 Days, TAB Prov:BREEZY HARVEY MD 10/02/18 Allergies Allergies: Coded Allergies: No Known Allergy (Unverified , 01/09/19) PMhx/Soc Reviewed in chart. As per HPI. History of Surgery: Yes (COLOSTOMY PLACEMENT (RIGHT ABD/ THEN LEFT ABDOMEN)) Anesthesia Reaction: No Hx Neurological Disorder: Yes (WEAKNESS BOTH LOWER EXTREMITIES) Hx Respiratory Disorders: Yes (EMPHYSEMA) Hx Cardiac Disorders: Yes (HTN) Hx Psychiatric Problems: Yes Hx Miscellaneous Medical Probl: No Hx Alcohol Use: Yes Hx Substance Use: No Hx Tobacco Use: No FmHx No family history relevant to presenting complaint Physical Exam Vitals Vital Signs Date Temp Pulse Resp B/P (MAP) Pulse Ox O2 O2 Flow FiO2 Time Delivery Rate 01/09/19 89 20 128/49 98 Nasal 3.0 19:51 (75) Cannula 01/09/19 85 22 136/72 97 Nasal 2.0 18:06 (93) Cannula 01/09/19 99.9 16:54 01/09/19 Nasal 2 16:30 Cannula 01/09/19 98.3 90 20 137/66 98 16:21 (89) Physical Exam Const: Elderly, chronically ill-appearing but in no acute distress Head: Atraumatic Eyes: Bilateral conjunctival injection with purulent discharge. ENT: Normal External Ears, Nose and Mouth. Pharynx is clear. Mucous membranes are dry. Neck: Full range of motion. Nontender. No JVD. No meningismus. Resp: Diminished bilaterally with crackles of the left greater than right base. No wheezing or rhonchi. Cardio: Regular rate and rhythm, no murmurs Abd: Soft, obese, non tender, non distended. Colostomy sites clean without erythema or skin changes, mucosa is pink. Normal bowel sounds Skin: No petechiae or rashes Back: No midline or flank tenderness Ext: No cyanosis, or edema Neur: Awake and alert. Oriented to person. No facial droop. Motor and se nsory equal bilaterally. Psych: Normal Mood and Affect Result Diagram: 01/11/19 0613 01/11/19 0613 Results 24 hrs Laboratory Tests Test 01/09/19 18:04 01/09/19 18:55 01/09/19 19:25 Bedside Glucose 106 mg/dL White Blood Count 13.0 10^3/ul Red Blood Count 4.00 10^6/ul Hemoglobin 11.3 g/dl Hematocrit 37.5 % Mean Corpuscular Volume 93.8 fl Mean Corpuscular Hemoglobin 28.3 pg Mean Corpuscular 30.1 g/dl Hemoglobin Concent Red Cell Distribution Width 16.6 % Platelet Count 187 10^3/UL Mean Platelet Volume 10.6 fl Immature Granulocytes % 0.600 % Neutrophils % 83.7 % Lymphocytes % 6.3 % Monocytes % 8.0 % Eosinophils % 1.2 % Basophils % 0.2 % Nucleated Red Blood Cells % 0.0 /100WBC Immature Granulocytes # 0.080 10^3/ul Neutrophils # 10.8 10^3/ul Lymphocytes # 0.8 10^3/ul Monocytes # 1.0 10^3/ul Eosinophils # 0.2 10^3/ul Basophils # 0.0 10^3/ul Nucleated Red Blood Cells # 0.0 10^3/ul Prothrombin Time 12.5 Sec Prothrombin Time Ratio 1.0 INR International 0.92 Normalized Ratio Activated Partial Thromboplast 24.1 Sec Time Sodium Level 140 mmol/L Potassium Level 4.5 mmol/L Chloride Level 106 mmol/L Carbon Dioxide Level 26 mmol/L Anion Gap 8 Blood Urea Nitrogen 25 mg/dl Creatinine 1.16 mg/dl Est Glomerular Filtrat mL/min Rate mL/min Glucose Level 106 mg/dl Calcium Level 10.2 mg/dl Total Bilirubin 0.3 mg/dl Direct Bilirubin 0.00 mg/dl Indirect Bilirubin 0.3 mg/dl Aspartate Amino 19 IU/L Transf (AST/SGOT) Alanine 17 IU/L Aminotransferase (ALT/SGPT) Alkaline Phosphatase 148 IU/L Troponin I 0.053 ng/ml Total Protein 7.2 g/dl Albumin 3.7 g/dl Globulin 3.50 g/dl Albumin/Globulin Ratio 1.05 Urine Color YELLOW Urine Clarity SLIGHTLY CLOUDY Urine pH 5.0 Urine Specific [place] 1.018 Urine Ketones NEGATIVE mg/dL Urine Nitrite NEGATIVE mg/dL Urine Bilirubin NEGATIVE mg/dL Urine Urobilinogen NEGATIVE mg/dL Urine Leukocyte Esterase 2+ [place]/ul Urine Microscopic RBC 3 /HPF Urine Microscopic WBC 16 /HPF Urine Squamous Epithelial Cells MODERATE /HPF Urine Bacteria FEW /HPF Urine Hyaline Casts FEW /HPF Urine Yeast (Budding) FEW /HPF Urine Hemoglobin NEGATIVE mg/dL Urine Glucose NEGATIVE mg/dL Urine Total Protein 1+ mg/dl Procedures/MDM DOCUMENTS REVIEWED: ED nurse, prior ED, prior records EKG: Rate/Rhythm: Atrial flutter with controlled ventricular response QRS, ST, T-waves: No changes consistent w/ acute ischemia Impression: No evidence of ischemia IMAGING: Chest AP portable: Cardiomegaly. Small left pleural effusion. Poor inspiration with compressive atelectasis. No acute infiltrate or congestive heart failure. No mediastinal widening. My interpretation. MEDICAL DECISION MAKIN-year-old male of hypertension, COPD, coronary art doc disease status post PCI, ischemic colitis status status post resection, colostomy colostomy, paroxysmal atrial fibrillation, congestive heart failure, pneumonia, GERD, DVT and heparin induced thrombocytopenia presents to the ED via rescue ambulance for evaluation of altered mental status. CBC remarkable for leukocytosis, mild anemia but no thrombocytopenia. Chemistry reveals elevated BUN with normal creatinine but no electrolyte abnormalities or hypoglycemia. LFTs are unremarkable. Urinalysis reveals pyuria and moderate leukocyte esterase, culture is pending. Troponin is not elevated. EKG reveals no evidence of acute ischemic changes. Chest x-ray reveals small left pleural effusion unchanged from prior but no acute infiltrate or pneumonia. CT of the brain reveals chronic changes but no hemorrhage, acute ischemia, mass or hydrocephalus. Patient presents with acute encephalopathy likely secondary to urinary tract infection. Abdominal exam is benign without significant tende rness, rebound, guarding, signs of obstruction or an acute intra-abdominal process and advanced imaging is deferred. Criteria for systemic inflammatory response syndrome include tachypnea and leukocytosis with sepsis secondary to urinary tract infection. Lactate is less than 2.0 mmol/L. No hypotension or criteria for severe sepsis or septic shock. Intravenous hydration and broad- spectrum antibiotics initiated after cultures. Admit to telemetry for further evaluation and management. CALLS/CONSULTS: Time: 29:08, Dr. Harvey. PATIENT CARE TRANSITIONED: Time: 20:29, Dr. Carter. Departure Diagnosis: Primary Impression: Acute encephalopathy Additional Impressions: UTI (urinary tract infection) Urinary tract infection type: acute cystitis Hematuria presence: without hematuria Qualified Codes: N30.00 - Acute cystitis without hematuria SIRS (systemic inflammatory response syndrome) Sepsis Sepsis type: sepsis due to unspecified organism Qualified Codes: A41.9 - Sepsis, unspecified organism Acute conjunctivitis of both eyes Acute conjunctivitis type: unspecified Qualified Codes: H10.33 - Unspecified acute conjunctivitis, bilateral Dehydration Anticoagulated Status post colostomy Condition: Serious ROXANNA PRATT MD Jan 09, 2019 16:29
[2019-01-09] MEDS ORDERED: CALC600T24 PO (17:49)
[2019-01-09] MEDS ORDERED: APIX5TAB PO (17:49)
[2019-01-09] MEDS ORDERED: ACET325T45 PO (17:50)
[2019-01-09] MEDS ORDERED: ADV50050 INHALATION (17:50)
[2019-01-09] MEDS ORDERED: ATOR20TA38 PO (17:51)
[2019-01-09] MEDS ORDERED: DIAZ2TAB3 PO (17:51)
[2019-01-09] MEDS ORDERED: METO-429 PO (17:52)
[2019-01-09] MEDS ORDERED: DOCU-144 PO (17:52)
[2019-01-09] MEDS ORDERED: MIRT15TA5 PO (17:53)
[2019-01-09] MEDS ORDERED: PANT40TA4 PO (17:53)
[2019-01-09] MEDS ORDERED: CAR120SR PO (17:54)
[2019-01-09] MEDS ORDERED: ARIP5TAB14 PO (17:55)
[2019-01-09] MEDS ORDERED: PRED5TAB PO (17:56)
[2019-01-09] MEDS ORDERED: FLUT1BLS INHALATION (17:56)
[2019-01-09] MEDS ORDERED: CEFTRIAXONE 1 GM/50 ML (PMX) 50 ML IVPB ONE (21:00)
[2019-01-09] MEDS ORDERED: ONDANSETRON 4 MG INJ IV PRN ×2 (21:00→21:30)
[2019-01-09] MEDS ORDERED: ACETAMINOPHEN 325 MG TAB PO PRN ×2 (21:00→22:00)
[2019-01-09] MEDS ORDERED: NACL 0.9% 3 ML SYG IV SCH (21:30)
[2019-01-09] MEDS: DEXTROSE 5%-0.45% NACL 1,000 ML IV SCH (22:10)
[2019-01-09] MEDS: NEOMYC/POLYMYX/DEXAMETH OPH 5 ML BOTH EYES SCH (22:29)
[2019-01-10] VITALS (11 sets, daily range): BP systolic 101–152; BP diastolic 48–86; PULSE 63–88; RESP 18–19
[2019-01-10] MEDS: PANTOPRAZOLE (EC) 40 MG TAB PO SCH (06:48)
[2019-01-10] MEDS ORDERED: PENDING SANTYL ORDER FOR WOUND CARE XX PRN (07:30)
[2019-01-10] MEDS ORDERED: predniSONE 5 MG TAB PO SCH (09:00)
[2019-01-10] MEDS ORDERED: DILTIAZEM HCL 120 MG PO SCH (09:00)
[2019-01-10] MEDS: APIXABAN 5 MG TABLET PO SCH ×2 (09:45→21:29)
[2019-01-10] MEDS: DILTIAZEM (CD) 120 MG CAP PO SCH (09:45)
[2019-01-10] MEDS: METOPROLOL 50 MG TAB PO SCH ×2 (09:46→21:29)
[2019-01-10] MEDS: CEFTRIAXONE 1 GM/50 ML (PMX) 50 ML IVPB SCH (09:51)
[2019-01-10] MEDS: DEXTROSE 5%-0.45% NACL 1,000 ML IV SCH (10:10)
--- NOTE | 2019-01-10 12:14 | HP ---
Date/Time of Note Date/Time of Note DATE: 01/10/19 TIME: 12:09 Assessment/Plan VTE [place] [facility] [place]: 6 [place] [facility] [place] Yes Pharmacological prophylaxis: apixaban Lines/Catheters IV Catheter Type (from [facility]): Peripheral IV Assessment/Plan Problems: (1) Encephalopathy Status: Resolved Comment: Probably due to infection. Start IV antibiotics for presumptive UTI. Await cultures. (2) Sepsis Status: Acute Comment: IV antibiotics and follow WBC. (3) UTI (urinary tract infection) Status: Acute Comment: as above (4) COPD (chronic obstructive pulmonary disease) Status: Chronic Comment: Resume Breo and Spiriva inhalers, start xopenex HHN. Continue low dose prednisone since we are tapering him down off steroid slowly as outpatient. 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 Continue to taper off steroids and continue physical therapy as tolerated. Result Diagram: 01/10/1961101/10/19611 Results 24hrs Laboratory Tests Test 01/09/19 18:04 01/09/19 18:55 01/09/19 19:25 01/09/19 20:53 Bedside Glucose 106 White Blood Count 13.0 H Red Blood Count 4.00 L Hemoglobin 11.3 L Hematocrit 37.5 L Mean Corpuscular 93.8 Volume Mean Corpuscular 28.3 L Hemoglobin Mean Corpuscular 30.1 L Hemoglobin Concen t Red Cell 16.6 H Distribution Width Platelet Count 187 Mean Platelet 10.6 H Volume Immature 0.600 H Granulocytes % Neutrophils % 83.7 H Lymphocytes % 6.3 L Monocytes % 8.0 Eosinophils % 1.2 Basophils % 0.2 Nucleated Red 0.0 Blood Cells % Immature 0.080 H Granulocytes # Neutrophils # 10.8 H Lymphocytes # 0.8 Monocytes # 1.0 H Eosinophils # 0.2 Basophils # 0.0 Nucleated Red 0.0 Blood Cells # Prothrombin Time 12.5 Prothrombin Time 1.0 Ratio INR International 0.92 Normalized Ratio Activated 24.1 Partial Thrombopl ast Time Sodium Level 140 Potassium Level 4.5 Chloride Level 106 Carbon Dioxide 26 Level Anion Gap 8 Blood Urea 25 H Nitrogen Creatinine 1.16 Est Glomerular Filtrat Rate mL/min Glucose Level 106 Calcium Level 10.2 Total Bilirubin 0.3 Direct Bilirubin 0.00 Indirect 0.3 Bilirubin Aspartate Amino 19 Transf (AST/SGOT) Alanine 17 Aminotransferase (ALT/SGPT) Alkaline 148 H Phosphatase Troponin I 0.053 Total Protein 7.2 Albumin 3.7 Globulin 3.50 H Albumin/Globulin 1.05 Ratio Urine Color YELLOW Urine Clarity SLIGHTLY CLOUDY A Urine pH 5.0 Urine Specific 1.018 [place] Urine Ketones NEGATIVE Urine Nitrite NEGATIVE Urine Bilirubin NEGATIVE Urine NEGATIVE Urobilinogen Urine Leukocyte 2+ H Esterase Urine Microscopic 3 RBC Urine Microscopic 16 H WBC Urine Squamous MODERATE Epithelial Cells Urine Bacteria FEW A Urine Hyaline FEW A Casts Urine Yeast FEW A (Budding) Urine Hemoglobin NEGATIVE Urine Glucose NEGATIVE Urine Total 1+ H Protein POC Venous 1.8 Lactate Test 01/10/19 06:12 White Blood Count 11.0 H Red Blood Count 3.57 L Hemoglobin 10.2 L Hematocrit 34.3 L Mean Corpuscular 96.1 Volume Mean Corpuscular 28.6 L Hemoglobin Mean Corpuscular 29.7 L Hemoglobin Concen t Red Cell 16.9 H Distribution Width Platelet Count 117 #L Mean Platelet 11.8 H Volume Immature 0.500 H Granulocytes % Neutrophils % 79.8 H Segmented 78 H Neutrophils % (Manual) Band Neutrophils 2 % (Manual) Lymphocytes % 7.2 L Lymphocytes % 11 L (Manual) Monocytes % 10.7 Monocytes % 4 (Manual) Eosinophils % 1.5 Eosinophils % 5 (Manual) Basophils % 0.3 Nucleated Red 0.0 Blood Cells % Immature 0.060 H Granulocytes # Neutrophils # 8.8 H Neutrophils # 8.6 H (Manual) Band Neutrophils 0.2 # Lymphocytes 1.2 (Manual) Lymphocytes # 0.8 Monocytes # 1.2 H Monocytes # 0.4 (Manual) Eosinophils # 0.2 Basophils # 0.0 Nucleated Red 0.0 Blood Cells # Platelet Estimate DECREASED Polychromasia 1+ Poikilocytosis 1+ Anisocytosis 1+ Microcytosis 1+ Spherocytes 1+ Sodium Level 138 Potassium Level 3.7 Chloride Level 109 Carbon Dioxide 24 Level Anion Gap 5 Blood Urea 23 H Nitrogen Creatinine 0.96 Est Glomerular Filtrat Rate mL/min Glucose Level 106 Hemoglobin A1c 5.7 Calcium Level 9.4 Total Bilirubin 0.3 Direct Bilirubin 0.00 Indirect 0.3 Bilirubin Aspartate Amino 17 Transf (AST/SGOT) Alanine 22 Aminotransferase (ALT/SGPT) Alkaline 116 Phosphatase Total Protein 6.3 Albumin 3.2 L Globulin 3.10 Albumin/Globulin 1.03 Ratio HPI/ROS Admit Date/Time Admit Date/Time Jan 10, 2019 at 11:21 Hx of Present Illness 83 year old male with history of copd, chf, s/p cva, s/p ileostomy and colostomy for ischemic colitis and colon cancer presents with altered mental status for 1 day. Per family , patient was tired, lethargic and not responding to normal stimuli. In the ER patient was noted to have dirty urine and elevated wbc and patient is admitted for encephalopathy due to urosepsis. PMH/Family/Social Past Medical History Medical History: cancer, colitis, congestive heart failure, coronary artery disease, deep vein thrombosis, hypertension Medications Current Medications Dextrose/Sodium Chloride 1,000 ml @ 75 mls/hr [id number] IV Last administered on 01/10/19at 10:10; Admin Dose 75 MLS/HR; Start 01/09/19 at 21:26 IV Flush (NS 3 ml) 3 ml PER PROTOCOL IV ; Start 01/09/19 at 21:30 Ondansetron HCl (Zofran Inj) 4 mg Q6H PRN IV NAUSEA/VOMITING; Start 01/09/19 at 21:30 Ceftriaxone Sodium 50 ml @ 100 mls/hr DAILY IVPB Last administered on 01/10/19at 09:51; Admin Dose 100 MLS/HR; Start 01/10/19 at 09:00 Neomycin/ Polymyxin/ Dexamethasone (Maxitrol Oph Susp) 2 drop QID BOTH EYES Last administered on 01/09/19at 22:29; Admin Dose 2 DROP; Start 01/09/19 at 22:00 Clonidine (Catapres) 0.1 mg TID PRN PO sbp >170; Start 01/09/19 at 22:00 Acetaminophen (Tylenol Tab) 650 mg TID PRN PO MILD PAIN(1-3)OR ELEVATED TEMP; Start 01/09/19 at 22:00 Apixaban (Eliquis) 5 mg BID PO Last administered on 01/10/19at 09:45; Admin Dose 5 MG; Start 01/10/19 at 09:00 Aripiprazole (Abilify) 5 mg DAILY PO ; Start 01/10/19 at 09:00 Metoprolol Tartrate (Lopressor) 50 mg BID PO Last administered on 01/10/19at 09:46; Admin Dose 50 MG; Start 01/10/19 at 09:00 Mirtazapine (Remeron) 15 mg HS PO ; Start 01/10/19 at 21:00 Pantoprazole (Protonix Tab) 40 mg AC BREAKFAST PO ; Start 01/10/19 at 07:00 Prednisone (Prednisone) 5 mg DAILY PO Last administered on 01/10/19at 09:45; Admin Dose 5 MG; Start 01/10/19 at 09:00 Diltiazem HCl (Cardizem Cd) 120 mg DAILY PO Last administered on 01/10/19at 09:45; Admin Dose 120 MG; Start 01/10/19 at 09:00 Miscellaneous Information ([facility]) This patient sawyer... PRN PRN XX WOUND CARE; Start 01/10/19 at 07:30 Coded Allergies: No Known Allergy (Unverified , 01/09/19) Past Surgical History Past Surgical Hx: angioplasty, bowel resection, other Family History Significant Family History: no pertinent family hx Social History Alcohol Use: other Smoking Status: Former smoker Drug Use: none Exam/Review of Systems Vital Signs Vitals Vital Signs Date Temp Pulse Resp B/P (MAP) Pulse Ox O2 O2 Flow FiO2 Time Delivery Rate 01/10/19 98.2 70 18 145/65 98 11:26 (91) 01/10/19 Nasal 3.0 03:15 Cannula Intake and Output 01/09/19 01/09/19 01/10/19 1515:00 23:00 07:00 IntakeIntake Total 150 ml BalanceBalance 150 ml Exam Exam Asleep but arousable , responding to questions but not oriented Psych: confusion Head: normocephalic, atraumatic ENMT: nl external ears & nose Respiratory: congested cough, crackles/rales Cardiovascular: regular rate and rhythm Gastrointestinal: soft, other (bilateral upper abdoment ostomies) Musculoskeletal: nl extremities to inspection BREEZY FRIAS MD Jan 10, 2019 12:14
[2019-01-10] MEDS: NEOMYC/POLYMYX/DEXAMETH OPH 5 ML BOTH EYES SCH ×4 (13:00→21:29)
[2019-01-10] MEDS: LEVALBUTEROL (NEB) 0.63 MG/3 ML AMP HHN SCH ×2 (13:23→20:19)
[2019-01-10] MEDS: ARIPIPRAZOLE 5 MG TAB PO SCH (15:35)
[2019-01-10] MEDS ORDERED: VANCOMYCIN IV PER PHARMACY XX SCH (18:00)
[2019-01-10] MEDS ORDERED: VANCOMYCIN HCL 1.5 GM in SOD CHLORIDE 0.9% 250 ML IVPB ONE (20:00)
[2019-01-10] MEDS: MIRTAZAPINE 15 MG TAB PO SCH (21:29)
[2019-01-11] VITALS (12 sets, daily range): BP systolic 96–149; BP diastolic 47–74; PULSE 59–69; RESP 18–20
[2019-01-11] MEDS: LEVALBUTEROL (NEB) 0.63 MG/3 ML AMP HHN SCH ×4 (01:43→19:49)
[2019-01-11] MEDS: DEXTROSE 5%-0.45% NACL 1,000 ML IV SCH ×2 (03:56→18:26)
[2019-01-11] MEDS: PANTOPRAZOLE (EC) 40 MG TAB PO SCH (06:16)
[2019-01-11] MEDS: FLUTICASONE/VILANTEROL 200-25 INH DEVICE INH SCH (09:00)
[2019-01-11] MEDS: TIOTROPIUM 18 MCG CAPSULE INHA DEV INH SCH (09:12)
[2019-01-11] MEDS: ARIPIPRAZOLE 5 MG TAB PO SCH (09:13)
[2019-01-11] MEDS: predniSONE 1 MG TAB PO SCH (09:13)
[2019-01-11] MEDS: predniSONE 5 MG TAB PO SCH (09:13)
[2019-01-11] MEDS: APIXABAN 5 MG TABLET PO SCH ×2 (09:13→21:51)
[2019-01-11] MEDS: CEFTRIAXONE 1 GM/50 ML (PMX) 50 ML IVPB SCH (09:13)
[2019-01-11] MEDS: METOPROLOL 50 MG TAB PO SCH ×2 (09:14→21:51)
[2019-01-11] MEDS: NEOMYC/POLYMYX/DEXAMETH OPH 5 ML BOTH EYES SCH ×4 (09:14→21:45)
[2019-01-11] MEDS: DILTIAZEM (CD) 120 MG CAP PO SCH (09:14)
[2019-01-11] MEDS: BALSAM PERU/CASTOR OIL 60 GM TUBE TOP SCH (12:51)
--- NOTE | 2019-01-11 17:03 | PN ---
Date/Time of Note Date/Time of Note DATE: 01/11/19 TIME: 16:59 Assessment/Plan VTE Prophylaxis [place] [facility] [place]: 5 [place]CD applied [place] [facility] [place] No SCD contraindicated: DVT Pharmacological prophylaxis: apixaban Lines/Catheters IV [facility]ter Type (from [facility]): Peripheral IV Assessment/Plan Problems: (1) Encephalopathy Status: Resolved (2) UTI (urinary tract infection) Status: Acute Comment: Gram negative rods in urine culture. Will change zosyn to oral cipro. (3) Bacteremia Status: Acute Comment: 1/2 bottles growing staph aureus. Patient on Vancomycin. (4) COPD (chronic obstructive pulmonary disease) Status: Chronic (5) CHF (congestive heart failure) Status: Chronic (6) Weakness Status: Chronic Result Diagram: 01/11/19 0613 01/11/19 0613 Results 24hrs Laboratory Tests Test 01/11/19 06:13 White Blood Count 9.6 Red Blood Count 3.20 L Hemoglobin 9.0 L Hematocrit 29.9 L Mean Corpuscular Volume 93.4 Mean Corpuscular Hemoglobin 28.1 L Mean Corpuscular Hemoglobin Concent 30.1 L Red Cell Distribution Width 16.9 H Platelet Count 148 # Mean Platelet Volume 10.3 Immature Granulocytes % 0.300 Neutrophils % 75.2 Lymphocytes % 11.4 L Monocytes % 11.1 H Eosinophils % 1.8 Basophils % 0.2 Nucleated Red Blood Cells % 0.0 Immature Granulocytes # 0.030 Neutrophils # 7.2 Lymphocytes # 1.1 Monocytes # 1.1 H Eosinophils # 0.2 Basophils # 0.0 Nucleated Red Blood Cells # 0.0 Sodium Level 141 Potassium Level 3.8 Chloride Level 109 Carbon Dioxide Level 26 Anion Gap 6 Blood Urea Nitrogen 23 H Creatinine 1.02 Est Glomerular Filtrat Rate mL/min Glucose Level 99 Calcium Level 9.1 Total Bilirubin 0.2 Direct Bilirubin 0.00 Indirect Bilirubin 0.2 Aspartate Amino Transf (AST/SGOT) 14 L Alanine Aminotransferase (ALT/SGPT) 19 Alkaline Phosphatase 95 Total Protein 5.8 L Albumin 2.9 L Globulin 2.90 Albumin/Globulin Ratio 1.00 Subjective 24 Hr Interval Summary Free Text/Dictation Patient has no complaints , wants to go home soon. Exam/Review of Systems Exam Vitals Vital Signs Date Temp Pulse Resp B/P (MAP) Pulse Ox O2 O2 Flow FiO2 Time Delivery Rate 01/11/19 60 16:00 01/11/19 98.0 18 98/55 (98) 94 15:34 01/11/19 Nasal 3.0 14:11 Cannula Intake and Output 01/10/19 01/10/19 01/11/19 1414:59 22:59 06:59 IntakeIntake Total 2475 ml BalanceBalance 2475 ml Constitutional: alert Psych: confusion ENMT: nl external ears & nose Respiratory: clear to auscultation, crackles/rales Cardiovascular: regular rate and rhythm Musculoskeletal: nl extremities to inspection Results Results 24hrs Laboratory Tests Test 01/11/19 06:13 White Blood Count 9.6 Red Blood Count 3.20 L Hemoglobin 9.0 L Hematocrit 29.9 L Mean Corpuscular Volume 93.4 Mean Corpuscular Hemoglobin 28.1 L Mean Corpuscular Hemoglobin Concent 30.1 L Red Cell Distribution Width 16.9 H Platelet Count 148 # Mean Platelet Volume 10.3 Immature Granulocytes % 0.300 Neutrophils % 75.2 Lymphocytes % 11.4 L Monocytes % 11.1 H Eosinophils % 1.8 Basophils % 0.2 Nucleated Red Blood Cells % 0.0 Immature Granulocytes # 0.030 Neutrophils # 7.2 Lymphocytes # 1.1 Monocytes # 1.1 H Eosinophils # 0.2 Basophils # 0.0 Nucleated Red Blood Cells # 0.0 Sodium Level 141 Potassium Level 3.8 Chloride Level 109 Carbon Dioxide Level 26 Anion Gap 6 Blood Urea Nitrogen 23 H Creatinine 1.02 Est Glomerular Filtrat Rate mL/min Glucose Level 99 Calcium Level 9.1 Total Bilirubin 0.2 Direct Bilirubin 0.00 Indirect Bilirubin 0.2 Aspartate Amino Transf (AST/SGOT) 14 L Alanine Aminotransferase (ALT/SGPT) 19 Alkaline Phosphatase 95 Total Protein 5.8 L Albumin 2.9 L Globulin 2.90 Albumin/Globulin Ratio 1.00 Medications Medication Current Medications Dextrose/Sodium Chloride 1,000 ml @ 75 mls/hr [id number] IV Last administered on 01/11/19at 03:56; Admin Dose 75 MLS/HR; Start 01/09/19 at 21:26 IV Flush (NS 3 ml) 3 ml PER PROTOCOL IV ; Start 01/09/19 at 21:30 Ondansetron HCl (Zofran Inj) 4 mg Q6H PRN IV NAUSEA/VOMITING; Start 01/09/19 at 21:30 Ceftriaxone Sodium 50 ml @ 100 mls/hr DAILY IVPB Last administered on 01/11/19 09:13; Admin Dose 100 MLS/HR; Start 01/10/19 at 09:00 Neomycin/ Polymyxin/ Dexamethasone (Maxitrol Oph Susp) 2 drop QID BOTH EYES Last administered on 01/11/19 09:14; Admin Dose 2 DROP; Start 01/09/19 at 22:00 Clonidine (Catapres) 0.1 mg TID PRN PO sbp >170; Start 01/09/19 at 22:00 Acetaminophen (Tylenol Tab) 650 mg TID PRN PO MILD PAIN(1-3)OR ELEVATED TEMP; Start 01/09/19 at 22:00 Apixaban (Eliquis) 5 mg BID PO Last administered on 01/11/19 09:13; Admin Dose 5 MG; Start 01/10/19 at 09:00 Aripiprazole (Abilify) 5 mg DAILY PO Last administered on 01/11/19 09:13; Admin Dose 5 MG; Start 01/10/19 at 09:00 Metoprolol Tartrate (Lopressor) 50 mg BID PO Last administered on 01/11/19 09:14; Admin Dose 50 MG; Start 01/10/19 at 09:00 Mirtazapine (Remeron) 15 mg HS PO Last administered on 01/10/19 21:29; Admin Dose 15 MG; Start 01/10/19 at 21:00 Pantoprazole (Protonix Tab) 40 mg AC BREAKFAST PO Last administered on 01/11/19 06:16; Admin Dose 40 MG; Start 01/10/19 at 07:00 Diltiazem HCl (Cardizem Cd) 120 mg DAILY PO Last administered on 01/11/19 0 9:14; Admin Dose 120 MG; Start 01/10/19 at 09:00 Miscellaneous Information (Pending [facility] Order For Wound Care) This patient sawyer... PRN PRN XX WOUND CARE; Start 01/10/19 at 07:30 Levalbuterol (Xopenex Neb) 0.63 mg Q6H RESP THERAPY HHN Last administered on 01/11/19 14:11; Admin Dose 0.63 MG; Start 01/10/19 at 14:00 Prednisone (Prednisone) 5 mg DAILY PO Last administered on 01/11/19at 09:13; Adm in Dose 5 MG; Start 01/11/19 at 09:00 Prednisone (Prednisone) 2 mg DAILY PO Last administered on 01/11/19at 09:13; Admin Dose 2 MG; Start 01/11/19 at 09:00 Fluticasone/ Vilanterol (Breo Ellipta 200-25 Mcg Inh) 1 inh DAILY INH ; Start 01/11/19 at 09:00 Tiotropium [place] (Spiriva) 1 inh DAILY INH Last administered on 01/11/19at 09:12; Admin Dose 1 INH; Start 01/11/19 at 09:00 Vancomycin HCl (Vanco Iv Per Pharmacy) VANCOMYCIN PER PHARMACY PER PROTOCOL XX ; Start 01/10/19 at 18:00 Vancomycin HCl 1.25 gm/Sodium Chloride 250 ml @ 83.333 mls/ hr Q24H IVPB ; Start 01/11/19 at 22:00 BREEZY FRIAS MD Jan 11, 2019 17:03
[2019-01-11] MEDS: VANCOMYCIN HCL 1.25 GM in SOD CHLORIDE 0.9% 250 ML IVPB SCH (21:41)
[2019-01-11] MEDS: MIRTAZAPINE 15 MG TAB PO SCH (21:51)
[2019-01-11] MEDS: CEPHALEXIN 500 MG CAP PO SCH (22:00)
[2019-01-12] VITALS (12 sets, daily range): BP systolic 111–145; BP diastolic 56–80; PULSE 59–76; RESP 18–20
[2019-01-12] MEDS ORDERED: CEPHALEXIN 500 MG CAP PO SCH
[2019-01-12] MEDS ORDERED: LORAZEPAM 2 MG INJ IV ONE (00:30)
[2019-01-12] MEDS: CEPHALEXIN 500 MG CAP PO SCH ×3 (00:49→12:26)
[2019-01-12] MEDS: ACETYLCYSTEINE 20% 4 ML VIAL NEB SCH ×5 (01:03→19:41)
[2019-01-12] MEDS: LEVALBUTEROL (NEB) 0.63 MG/3 ML AMP HHN SCH ×4 (01:03→19:40)
[2019-01-12] MEDS: DEXTROSE 5%-0.45% NACL 1,000 ML IV SCH ×2 (02:46→12:26)
[2019-01-12] MEDS: APIXABAN 5 MG TABLET PO SCH ×3 (08:37→21:00)
[2019-01-12] MEDS: PANTOPRAZOLE (EC) 40 MG TAB PO SCH (08:38)
[2019-01-12] MEDS: METOPROLOL 50 MG TAB PO SCH ×3 (08:38→21:00)
[2019-01-12] MEDS: predniSONE 1 MG TAB PO SCH (08:38)
[2019-01-12] MEDS: GUAIFENESIN LA 600 MG TABSR PO SCH ×3 (08:38→21:00)
[2019-01-12] MEDS: predniSONE 5 MG TAB PO SCH (08:38)
[2019-01-12] MEDS: ARIPIPRAZOLE 5 MG TAB PO SCH (08:38)
[2019-01-12] MEDS: NEOMYC/POLYMYX/DEXAMETH OPH 5 ML BOTH EYES SCH ×3 (08:39→16:50)
[2019-01-12] MEDS: TIOTROPIUM 18 MCG CAPSULE INHA DEV INH SCH (08:39)
[2019-01-12] MEDS: DILTIAZEM (CD) 120 MG CAP PO SCH (08:39)
[2019-01-12] MEDS: BALSAM PERU/CASTOR OIL 60 GM TUBE TOP SCH (08:39)
[2019-01-12] MEDS: FLUTICASONE/VILANTEROL 200-25 INH DEVICE INH SCH (08:47)
--- NOTE | 2019-01-12 15:59 | PN ---
Date/Time of Note Date/Time of Note DATE: 01/12/19 TIME: 15:54 Assessment/Plan VTE Prophylaxis Risk score (from [facility]0 risk: 5 SCD applied (from [facility] [place] No SCD contraindicated: DVT Pharmacological prophylaxis: apixaban Lines/Catheters IV Catheter Type (from [facility]): Peripheral IV Assessment/Plan Assessment/Plan (1) Encephalopathy, hospital psychosis Status: chronic Comment: Resume diazepam qhs for anxiety and use IV lorazepam as needed for agitation. (2) UTI (urinary tract infection) Status: Acute Comment: ESBL E. coli and pseudomonas in urine culture. Will change abx to Meropenem. (3) Bacteremia Status: Acute Comment: 1/2 bottles growing staph aureus. Patient on Vancomycin. (4) COPD (chronic obstructive pulmonary disease) Status: Chronic, continue inhalers. (5) Conjuctivitis Status: Acute, start antibiotics eye drops, check sinus CT for sinusitis (6) Weakness Status: Chronic (7)CHF (congestive heart failure) Status: Chronic (8) GERD with hiatal hernia Status: Chronic, keep head of bed elevated to prevent aspiration. Result Diagram: 01/11/1961201/11/19612 Subjective 24 Hr Interval Summary Free Text/Dictation Patient awake and alert but confused this am. Had severe agitation last night pulling on lines and bags. Exam/Review of Systems Exam Vitals Vital Signs Date Temp Pulse Resp B/P (MAP) Pulse Ox O2 O2 Flow FiO2 Time Delivery Rate 01/12/19 98.3 59 20 137/75 94 15:09 (95) 01/12/19 21 14:37 01/12/19 Room Air 01:27 01/12/19 2.0 01:04 Intake and Output 01/11/19 01/11/19 01/12/19 1515:00 23:00 07:00 IntakeIntake Total 725 ml 550 ml 970 ml OutputOutput Total 300 ml BalanceBalance 725 ml 250 ml 970 ml Constitutional: alert Psych: confusion Eyes: nl conjunctiva, other (crusty discharge bilateral eyelids.) ENMT: nl external ears & nose Respiratory: congested cough, crackles/rales Cardiovascular: regular rate and rhythm Gastrointestinal: soft, other (bilateral ostomies) Musculoskeletal: nl extremities to inspection Medications Medication Current Medications Dextrose/Sodium Chloride 1,000 ml @ 75 mls/hr [id number] IV Last administered on 01/12/19 12:26; Admin Dose 75 MLS/HR; Start 01/09/19 at 21:26 IV Flush (NS 3 ml) 3 ml PER PROTOCOL IV ; Start 01/09/19 at 21:30 Ondansetron HCl (Zofran Inj) 4 mg Q6H PRN IV NAUSEA/VOMITING; Start 01/09/19 at 21:30 Neomycin/ Polymyxin/ Dexamethasone (Maxitrol Oph Susp) 2 drop QID BOTH EYES Last administered on 01/12/19 12:26; Admin Dose 2 DROP; Start 01/09/19 at 22:00 Clonidine (Catapres) 0.1 mg TID PRN PO sbp >170; Start 01/09/19 at 22:00 Acetaminophen (Tylenol Tab) 650 mg TID PRN PO MILD PAIN(1-3)OR ELEVATED TEMP; Start 01/09/19 at 22:00 Apixaban (Eliquis) 5 mg BID PO Last administered on 01/12/19 08:37; Admin Dose 5 MG; Start 01/10/19 at 09:00 Aripiprazole (Abilify) 5 mg DAILY PO Last administered on 01/12/19 08:38; Admin Dose 5 MG; Start 01/10/19 at 09:00 Metoprolol Tartrate (Lopressor) 50 mg BID PO Last administered on 01/12/19 08:38; Admin Dose 50 MG; Start 01/10/19 at 09:00 Mirtazapine (Remeron) 15 mg HS PO Last administered on 01/11/19 21:51; Admin Dose 15 MG; Start 01/10/19 at 21:00 Pantoprazole (Protonix Tab) 40 mg AC BREAKFAST PO Last administered on 01/12/19 08:38; Admin Dose 40 MG; Start 01/10/19 at 07:00 Diltiazem HCl (Cardizem Cd) 120 mg DAILY PO Last administered on 01/12/19 08:39; Admin Dose 120 MG; Start 01/10/19 at 09:00 Miscellaneous Information (Pending [facility] Order For Wound Care) This patient sawyer... PRN PRN XX WOUND CARE; Start 01/10/19 at 07:30 Levalbuterol (Xopenex Neb) 0.63 mg Q6H RESP THERAPY HHN Last administered on 01/12/19 01:03; Admin Dose 0.63 MG; Start 01/10/19 at 14:00 Prednisone (Prednisone) 5 mg DAILY PO Last administered on 01/12/19 08:38; Admin Dose 5 MG; Start 01/11/19 at 09:00 Prednisone (Prednisone) 2 mg DAILY PO Last administered on 01/12/19 08:38; Admin Dose 2 MG; Start 01/11/19 at 09:00 Fluticasone/ Vilanterol (Breo Ellipta 200-25 Mcg Inh) 1 inh DAILY INH Last administered on 01/12/19 08:47; Admin Dose 1 INH; Start 01/11/19 at 09:00 Tiotropium [place] (Spiriva) 1 inh DAILY INH Last administered on 01/12/19 08:39; Admin Dose 1 INH; Start 01/11/19 at 09:00 Vancomycin HCl (Vanco Iv Per Pharmacy) VANCOMYCIN PER PHARMACY PER PROTOCOL XX ; Start 01/10/19 at 18:00 Vancomycin HCl 1.25 gm/Sodium Chloride 250 ml @ 83.333 mls/ hr Q24H IVPB Last administered on 01/11/19at 21:41; Admin Dose 83.333 MLS/HR; Start 01/11/19 at 22:00 Cephalexin (Keflex) 500 mg Q8 PO Last administered on 01/12/19at 12:26; Admin Dose 500 MG; Start 01/11/19 at 22:00 Diazepam (Valium) 2 mg HS PO ; Start 01/12/19 at 21:00 Guaifenesin (Mucinex) 600 mg BID PO Last administered on 01/12/19 08:38; Admin Dose 600 MG; Start 01/12/19 at 09:00 Acetylcysteine (Mucomyst) 2 ml Q6H RESP THERAPY NEB ; Start 01/12/19 at 02:00 BREEZY FRIAS MD Jan 12, 2019 15:59
[2019-01-12] MEDS ORDERED: LORAZEPAM 2 MG INJ IV PRN (16:00)
[2019-01-12] MEDS: MEROPENEM 1 GM/50ML(PMX) 50 ML IVPB SCH (17:16)
[2019-01-12] MEDS: MOXIFLOXACIN 0.5% 3 ML OPH BOTH EYES SCH (20:19)
[2019-01-12] MEDS: MIRTAZAPINE 15 MG TAB PO SCH ×2 (20:19→21:00)
[2019-01-12] MEDS: DIAZEPAM 2 MG TAB PO SCH ×2 (20:20→21:00)
[2019-01-12] MEDS: VANCOMYCIN HCL 1.25 GM in SOD CHLORIDE 0.9% 250 ML IVPB SCH (21:48)
[2019-01-13] VITALS (12 sets, daily range): BP systolic 98–126; BP diastolic 48–62; PULSE 60–71; RESP 18–20
[2019-01-13] MEDS: LEVALBUTEROL (NEB) 0.63 MG/3 ML AMP HHN SCH ×4 (01:40→20:44)
[2019-01-13] MEDS: ACETYLCYSTEINE 20% 4 ML VIAL NEB SCH ×4 (01:51→20:45)
[2019-01-13] MEDS: DEXTROSE 5%-0.45% NACL 1,000 ML IV SCH ×2 (05:26→18:51)
[2019-01-13] MEDS: PANTOPRAZOLE (EC) 40 MG TAB PO SCH (07:25)
[2019-01-13] MEDS: MEROPENEM 1 GM/50ML(PMX) 50 ML IVPB SCH ×2 (08:37→21:00)
[2019-01-13] MEDS: GUAIFENESIN LA 600 MG TABSR PO SCH ×2 (09:00→21:50)
[2019-01-13] MEDS: TIOTROPIUM 18 MCG CAPSULE INHA DEV INH SCH (09:00)
[2019-01-13] MEDS: FLUTICASONE/VILANTEROL 200-25 INH DEVICE INH SCH (09:00)
[2019-01-13] MEDS: DILTIAZEM (CD) 120 MG CAP PO SCH (09:00)
--- NOTE | 2019-01-13 09:53 | PQ ---
Date/Time of Note Date/Time of Note DATE: 01/13/19 TIME: 09:[address] Harvey , A review of the medical record found a need for documentation clarification. patient admitted and found to have sepsis and UTI. "Acute Encephalopathy likely related to infection" is documented in H&P. please further specify type of Encephalopathy. Thank you Please clarify a diagnosis being treated. To facilitate accurate and complete coding, please mauro ( x ) the suspected diagnosis that apply: ( x ) Septic Encephalopathy ( ) Metabolic Encephalopathy ( ) Toxic Encephalopathy ( ) Other Please provide your response by clicking edit document,make your choice (x ) , click ok/save and finally click sign. You may alsodocument your responseinyour progress notes. Thank you for your time. Yayo DAVISBS,CCS,CCDS [employer] [facility] Information Management, [facility] and Coding Services [phone] Room # 1525 - Coding [place] [phone] YAYO OTTO Jan 13, 2019 09:53 BREEZY HARVEY MD Jan 14, 2019 00:07
[2019-01-13] MEDS: METOPROLOL 50 MG TAB PO SCH ×2 (09:59→21:51)
[2019-01-13] MEDS: predniSONE 5 MG TAB PO SCH (10:00)
[2019-01-13] MEDS: predniSONE 1 MG TAB PO SCH (10:00)
[2019-01-13] MEDS: ARIPIPRAZOLE 5 MG TAB PO SCH (10:00)
[2019-01-13] MEDS: APIXABAN 5 MG TABLET PO SCH ×2 (10:01→21:50)
[2019-01-13] MEDS: BALSAM PERU/CASTOR OIL 60 GM TUBE TOP SCH (10:03)
[2019-01-13] MEDS: MOXIFLOXACIN 0.5% 3 ML OPH BOTH EYES SCH ×3 (10:04→21:54)
--- NOTE | 2019-01-13 12:05 | CONS ---
Assessment/Plan Assessment/Plan Hospital Course (Demo Recall) 1) MRSA bacteremia unclear source repeat blood cx now no significant microscopic hematuria noted, will check RF in a.m. will order 2d echo, to be read by Dr. Robbins continue with vanco pt has a recent hx of DVT to LLE and he may need WBC scan to r/o infected clot but will order joel doppler to see if it is still there no open wounds other than the colostomy and ileostomy but nurse reports no redness to the sites pt has a cough and some haziness at L base but unable to get sputum cx, nasal cx is pending 2) bacteriuria with mild-mod pyuria due to pseudomonas and e.coli +ESBL continue with merrem at present 3)AMS pt is lethargic was apparently speaking upon admission likely due to metabolic encephalopathy check ammonia level in a.m. 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 6) recent DVT L calf is enlarged, to get venous doppler of area and if clot still present will order WBC to r/o infected clot 7) LUE phlebitis this is likely due to a prior IV site to that area and became present after admission most likely Consultation Date/Type/Reason Admit Date/Time Jan 10, 2019 at 11:21 Date of Consultation: Jan 13, 2019 Type of Consult ID Date/Time of Note DATE: 01/13/19 TIME: 11:48 Hx of Present Illness pt unable to give any hx pt was admitted due to AMS spoke to nurse, no diarrhea, slight cough no open wounds pt had LUE IV site that currently looks inflammed poor oral intake Past Medical History Medical History: cancer, colitis, congestive heart failure, coronary artery disease, deep vein thrombosis, hypertension Home Meds Reported Medications Fluticasone/Vilanterol (Breo Ellipta 200-25 Mcg INH) 1 Each Blst.w.dev, 1 PUFF INHALATION DAILY, #1 INHALER 01/09/19 Prednisone* (Prednisone*) 5 Mg Tab, 5 MG PO DAILY, TAB TAKE 1 OR 2 TAB NEEDED 01/09/19 Aripiprazole* (Abilify*) 5 Mg Tab, 5 MG PO DAILY, #30 TAB 01/09/19 Diltiazem Hcl (Diltiazem) 120 Mg Capsr, 120 MG PO QAM, #30 CAP 01/09/19 Pantoprazole* (Pantoprazole*) 40 Mg Tablet.dr, 40 MG PO AC BREAKFAST, TAB 01/09/19 Mirtazapine* (Mirtazapine*) 15 Mg Tablet, 15 MG PO HS, TAB 01/09/19 Metoprolol Tartrate* (Lopressor*) 50 Mg Tab, 50 MG PO BID, #60 TAB 01/09/19 Docusate Sodium* (Colace*) 100 Mg Capsule, 100 MG PO QHS, #30 CAP 01/09/19 Diazepam* (Diazepam*) 2 Mg Tablet, 2 MG PO QHS, TAB 01/09/19 Atorvastatin Calcium* (Atorvastatin Calcium*) 20 Mg Tablet, 20 MG PO QHS, #30 TAB 01/09/19 Acetaminophen* (Acetaminophen*) 325 Mg Tablet, 650 MG PO NEEDED PRN for PAIN AND OR ELEVATED TEMP, #30 TAB 01/09/19 Salmeterol Xinaf-Fluticasone* (Advair*) 500/50 Diskus Inhaler, 1 INH INHALATION BID, #1 INHALER 01/09/19 Calcium Carbonate* (Calcium Carbonate*) 600 MG Ca Tab, 600 MG PO BID, TAB 01/09/19 Apixaban* (Eliquis*) 5 Mg Tablet, 5 MG PO BID, TAB 01/09/19 Discontinued Reported Medications Metoprolol Tartrate* (Lopressor*) 50 Mg Tab, 50 MG PO BID for HTN, #60 TAB 11/18/18 Mirtazapine* (Remeron*) 15 Mg Tablet, 15 MG PO HS, TAB 08/31/18 Diazepam* (Diazepam*) 5 Mg Tablet, 5 MG PO Q9PM, TAB 08/31/18 Ascorbic Acid (Vitamin C) 500 Mg Tab, 500 MG PO Q 9AM, TAB 08/31/18 Multivitamin with Minerals (Multivitamins with Minerals) 1 Each Tablet, 1 EACH PO DAILY, TAB 08/31/18 Docusate Sodium* (Colace*) 100 Mg Capsule, 200 MG PO QHS, #30 CAP 08/31/18 Acetaminophen* (Acetaminophen*) 325 Mg Tablet, 650 MG PO Q4H PRN for PAIN LEVEL 1-5, #30 TAB 08/31/18 Folic Acid* (Folic Acid*) 1 Mg Tablet, 1 MG PO DAILY, TAB 11/3/18 Ipratropium-Albuterol (Ipratropium-Albuterol) 0.5-3 Mg/3 Ml Ampul.neb, 3 ML INHALATION Q6, #30 VIAL 08/31/18 Atorvastatin Calcium* (Atorvastatin Calcium*) 20 Mg Tablet, 20 MG PO QHS, #30 TAB 06/03/18 Discontinued Scripts Guaifenesin (Guaifenesin) 600 Mg Tablet.sa, 600 MG PO BID for 30 Days Prov:BREEZY RFIAS MD 11/25/18 Diltiazem Hcl (DILTIAZEM 24HR ER) 120 Mg Cap.er.24h, 120 MG PO AM for 30 Days, CAP Prov:BREEZY FRIAS MD 11/25/18 Apixaban* (Eliquis*) 5 Mg Tablet, 10 MG PO BID for 30 Days, #74 TAB 2 tablets twice a day for 1 week , then 1 tablet twice a day Prov:BREEZY FRIAS MD 11/25/18 Amoxicillin/Potassium Clav (Amox-Clav 500-125 mg Tablet) 500-125 mg Tab, 500 MG PO TID for 7 Days, #20 TAB Prov:BREEZY FRIAS MD 11/25/18 Pantoprazole* (Pantoprazole*) 40 Mg Tablet.dr, 40 MG PO AC BREAKFAST for 30 Days, TAB Prov:BREEZY FRIAS MD 10/02/18 Prednisone* (Prednisone*) 10 Mg Tab, 10 MG PO DAILY for 30 Days, TAB Prov:BREEZY FRIAS MD 10/02/18 Fluticasone/Vilanterol (Breo Ellipta 200-25 Mcg INH) 1 Each Blst.w.dev, 1 INH INH DAILY for 30 Days Prov:BREEZY FRIAS MD 10/02/18 Acetylcysteine* (Mucomyst*) 4 Ml Soln, 3 ML NEB Q6H RESP THERAPY for 30 Days Prov:BREEZY FRIAS MD 10/02/18 Aripiprazole* (Abilify*) 5 Mg Tab, 5 MG PO DAILY for 30 Days, TAB Prov:BREEZY FRIAS MD 10/02/18 Medications Current Medications Dextrose/Sodium Chloride 1,000 ml @ 75 mls/hr [id number] IV Last administered on 01/12/19at 12:26; Admin Dose 75 MLS/HR; Start 01/09/19 at 21:26 IV Flush (NS 3 ml) 3 ml PER PROTOCOL IV ; Start 01/09/19 at 21:30 Ondansetron HCl (Zofran Inj) 4 mg Q6H PRN IV NAUSEA/VOMITING; Start 01/09/19 at 21:30 Clonidine (Catapres) 0.1 mg TID PRN PO sbp >170; Start 01/09/19 at 22:00 Acetaminophen (Tylenol Tab) 650 mg TID PRN PO MILD PAIN(1-3)OR ELEVATED TEMP; Start 01/09/19 at 22:00 Apixaban (Eliquis) 5 mg BID PO Last administered on 01/13/19 10:01; Admin Dose 5 MG; Start 01/10/19 at 09:00 Aripiprazole (Abilify) 5 mg DAILY PO Last administered on 01/13/19 10:00; Admin Dose 5 MG; Start 01/10/19 at 09:00 Metoprolol Tartrate (Lopressor) 50 mg BID PO Last administered on 01/13/19 09:59; Admin Dose 50 MG; Start 01/10/19 at 09:00 Mirtazapine (Remeron) 15 mg HS PO Last administered on 01/11/19 21:51; Admin Dose 15 MG; Start 01/10/19 at 21:00 Pantoprazole (Protonix Tab) 40 mg AC BREAKFAST PO Last administered on 01/13/19 07:25; Admin Dose 40 MG; Start 01/10/19 at 07:00 Diltiazem HCl (Cardizem Cd) 120 mg DAILY PO Last administered on 01/12/19 08:39; Admin Dose 120 MG; Start 01/10/19 at 09:00 Miscellaneous Information (Pending [facility] Order For Wound Care) This patient sawyer... PRN PRN XX WOUND CARE; Start 01/10/19 at 07:30 Levalbuterol (Xopenex Neb) 0.63 mg Q6H RESP THERAPY HHN Last administered on 01/13/19 07:09; Admin Dose 0.63 MG; Start 01/10/19 at 14:00 Prednisone (Prednisone) 5 mg DAILY PO Last administered on 01/13/19 10:00; Admin Dose 5 MG; Start 01/11/19 at 09:00 Prednisone (Prednisone) 2 mg DAILY PO Last administered on 01/13/19 10:00; Admin Dose 2 MG; Start 01/11/19 at 09:00 Fluticasone/ Vilanterol (Breo Ellipta 200-25 Mcg Inh) 1 inh DAILY INH Last administered on 01/12/19 08:47; Admin Dose 1 INH; Start 01/11/19 at 09:00 Tiotropium [place] (Spiriva) 1 inh DAILY INH Last administered on 01/12/19 08:39; Admin Dose 1 INH; Start 01/11/19 at 09:00 Vancomycin HCl (Vanco Iv Per Pharmacy) VANCOMYCIN PER PHARMACY PER PROTOCOL XX ; Start 01/10/19 at 18:00 Vancomycin HCl 1.25 gm/Sodium Chloride 250 ml @ 83.333 mls/ hr Q24H IVPB Last administered on 01/12/19 21:48; Admin Dose 83.333 MLS/HR; Start 01/11/19 at 22:00 Diazepam (Valium) 2 mg HS PO ; Start 01/12/19 at 21:00 Guaifenesin (Mucinex) 600 mg BID PO Last administered on 01/13/19 09:00; Admin Dose 600 MG; Start 01/12/19 at 09:00 Acetylcysteine (Mucomyst) 2 ml Q6H RESP THERAPY NEB Last administered on 01/13/19 01:51; Admin Dose 2 ML; Start 01/12/19 at 02:00 Meropenem/Sodium Chloride 50 ml @ 100 mls/hr Q12 IVPB Last administered on 01/13/19 08:37; Admin Dose 100 MLS/HR; Start 01/12/19 at 17:00 Lorazepam (Ativan) 1 mg Q8H PRN IV agitation, anxiety; Start 01/12/19 at 16:00 Moxifloxacin HCl (Vigamox) 1 drop TID BOTH EYES Last administered on 01/13/19 10:04; Admin Dose 1 DROP; Start 01/12/19 at 21:00 Allergies: Coded Allergies: No Known Allergy (Unverified , 01/09/19) Past Surgical History Past Surgical Hx: angioplasty, bowel resection, other Social History Alcohol Use: other Smoking Status: Former smoker Drug Use: none Exam/Review of Systems Exam Vitals Vital Signs Date Temp Pulse Resp B/P (MAP) Pulse Ox O2 O2 Flow FiO2 Time Delivery Rate 01/13/19 Nasal 2.0 08:15 Cannula 01/13/19 63 08:01 01/13/19 98.0 18 108/57 96 07:43 (74) 01/12/19 21 19:40 Intake and Output 01/12/19 01/12/19 01/13/19 1515:00 23:00 07:00 IntakeIntake Total 400 ml 850 ml 850 ml OutputOutput Total 200 ml BalanceBalance 400 ml 850 ml 650 ml Exam pt does not open eyes for me but withdraws in pain Constitutional: non-verbal Respiratory: other (rhonchi mainly on R) Cardiovascular: regular rate and rhythm Gastrointestinal: soft, other (no redness around colostomy or ileostomy) Extremities: other (L calf is larger and pt withdraws with palpation of it, LUE area of swelling redness and increase in heat noted) Results Result Diagram: 01/13/19 0550 01/13/19 0550 Results 24hrs Laboratory Tests Test 01/13/19 05:50 White Blood Count 7.7 Red Blood Count 3.21 L Hemoglobin 9.0 L Hematocrit 29.5 L Mean Corpuscular Volume 91.9 Mean Corpuscular Hemoglobin 28.0 L Mean Corpuscular Hemoglobin Concent 30.5 L Red Cell Distribution Width 16.4 H Platelet Count 138 L Mean Platelet Volume 10.5 H Immature Granulocytes % 0.400 Neutrophils % 73.4 Lymphocytes % 11.8 L Monocytes % 11.9 H Eosinophils % 2.1 Basophils % 0.4 Nucleated Red Blood Cells % 0.0 Immature Granulocytes # 0.030 Neutrophils # 5.6 Lymphocytes # 0.9 Monocytes # 0.9 Eosinophils # 0.2 Basophils # 0.0 Nucleated Red Blood Cells # 0.0 Sodium Level 143 Potassium Level 3.5 Chloride Level 112 H Carbon Dioxide Level 24 Anion Gap 7 Blood Urea Nitrogen 13 # Creatinine 0.94 Est Glomerular Filtrat Rate mL/min Glucose Level 95 Calcium Level 9.0 Total Bilirubin 0.1 L Direct Bilirubin 0.00 Indirect Bilirubin 0.1 Aspartate Amino Transf (AST/SGOT) 12 L Alanine Aminotransferase (ALT/SGPT) 10 L Alkaline Phosphatase 83 Total Protein 5.9 L Albumin 2.9 L Globulin 3.00 Albumin/Globulin Ratio 0.96 Medications Medication Current Medications Dextrose/Sodium Chloride 1,000 ml @ 75 mls/hr [id number] IV Last administered on 01/12/19 12:26; Admin Dose 75 MLS/HR; Start 01/09/19 at 21:26 IV Flush (NS 3 ml) 3 ml PER PROTOCOL IV ; Start 01/09/19 at 21:30 Ondansetron HCl (Zofran Inj) 4 mg Q6H PRN IV NAUSEA/VOMITING; Start 01/09/19 at 21:30 Clonidine (Catapres) 0.1 mg TID PRN PO sbp >170; Start 01/09/19 at 22:00 Acetaminophen (Tylenol Tab) 650 mg TID PRN PO MILD PAIN(1-3)OR ELEVATED TEMP; Start 01/09/19 at 22:00 Apixaban (Eliquis) 5 mg BID PO Last administered on 01/13/19 10:01; Admin Dose 5 MG; Start 01/10/19 at 09:00 Aripiprazole (Abilify) 5 mg DAILY PO Last administered on 01/13/19 10:00; Admin Dose 5 MG; Start 01/10/19 at 09:00 Metoprolol Tartrate (Lopressor) 50 mg BID PO Last administered on 01/13/19 09:59; Admin Dose 50 MG; Start 01/10/19 at 09:00 Mirtazapine (Remeron) 15 mg HS PO Last administered on 01/11/19 21:51; Admin Dose 15 MG; Start 01/10/19 at 21:00 Pantoprazole (Protonix Tab) 40 mg AC BREAKFAST PO Last administered on 01/13/19 07:25; Admin Dose 40 MG; Start 01/10/19 at 07:00 Diltiazem HCl (Cardizem Cd) 120 mg DAILY PO Last administered on 01/12/19 08:39; Admin Dose 120 MG; Start 01/10/19 at 09:00 Miscellaneous Information (Pending [facility] Order For Wound Care) This patient sawyer... PRN PRN XX WOUND CARE; Start 01/10/19 at 07:30 Levalbuterol (Xopenex Neb) 0.63 mg Q6H RESP THERAPY HHN Last administered on 01/13/19 07:09; Admin Dose 0.63 MG; Start 01/10/19 at 14:00 Prednisone (Prednisone) 5 mg DAILY PO Last administered on 01/13/19 10:00; Admin Dose 5 MG; Start 01/11/19 at 09:00 Prednisone (Prednisone) 2 mg DAILY PO Last administered on 01/13/19 10:00; Admin Dose 2 MG; Start 01/11/19 at 09:00 Fluticasone/ Vilanterol (Breo Ellipta 200-25 Mcg Inh) 1 inh DAILY INH Last administered on 01/12/19 08:47; Admin Dose 1 INH; Start 01/11/19 at 09:00 Tiotropium [place] (Spiriva) 1 inh DAILY INH Last administered on 01/12/19 08:39; Admin Dose 1 INH; Start 01/11/19 at 09:00 Vancomycin HCl (Vanco Iv Per Pharmacy) VANCOMYCIN PER PHARMACY PER PROTOCOL XX ; Start 01/10/19 at 18:00 Vancomycin HCl 1.25 gm/Sodium Chloride 250 ml @ 83.333 mls/ hr Q24H IVPB Last administered on 01/12/19 21:48; Admin Dose 83.333 MLS/HR; Start 01/11/19 at 22:00 Diazepam (Valium) 2 mg HS PO ; Start 01/12/19 at 21:00 Guaifenesin (Mucinex) 600 mg BID PO Last administered on 01/13/19 09:00; Admin Dose 600 MG; Start 01/12/19 at 09:00 Acetylcysteine (Mucomyst) 2 ml Q6H RESP THERAPY NEB Last administered on 01/13/19 01:51; Admin Dose 2 ML; Start 01/12/19 at 02:00 Meropenem/Sodium Chloride 50 ml @ 100 mls/hr Q12 IVPB Last administered on 01/13/19 08:37; Admin Dose 100 MLS/HR; Start 01/12/19 at 17:00 Lorazepam (Ativan) 1 mg Q8H PRN IV agitation, anxiety; Start 01/12/19 at 16:00 Moxifloxacin HCl (Vigamox) 1 drop TID BOTH EYES Last administered on 01/13/19 10:04; Admin Dose 1 DROP; Start 01/12/19 at 21:00 MIGUELITO VASQUEZ MD Jan 13, 2019 12:00
--- NOTE | 2019-01-13 17:29 | PN ---
Date/Time of Note Date/Time of Note DATE: 01/13/19 TIME: 17:27 Assessment/Plan VTE Prophylaxis Risk score (from [facility])>0 risk: 5 SCD applied (from [facility]): No SCD contraindicated: DVT Pharmacological prophylaxis: apixaban Lines/Catheters IV Catheter Type (from [facility]): Peripheral IV Assessment/Plan Problems: (1) Encephalopathy Status: Acute Comment: fluctuating mental status may be due to infections or meds- related. D/C lorazepam IV. (2) UTI (urinary tract infection) Status: Acute Comment: Patient on meropenem for ESBL E Coli and Pseudomonas. Qualifiers: Urinary tract infection type: acute cystitis Hematuria presence: without hematuria Qualified Codes: N30.00 - Acute cystitis without hematuria (3) Bacteremia Status: Acute Comment: agree with work up for MRSA bacteremia per ID Dr. Taylor. Continue Vanco for now. (4) Acute conjunctivitis of both eyes Status: Acute Comment: Maxitrol changed to Vigamox. Sinus CT normal. Qualifiers: Acute conjunctivitis type: unspecified Qualified Codes: H10.33 - Unspecified acute conjunctivitis, bilateral (5) Dvt femoral (deep venous thrombosis) Status: Acute Comment: Recheck venous doppler unchanged. (6) COPD (chronic obstructive pulmonary disease) Status: Chronic Comment: Stable on current meds . Will continue steroid taper when patient more stable. (7) GERD with esophagitis Status: Chronic Comment: Keep head of bed elevated to prevent aspiration pneumonitis. (8) CHF (congestive heart failure) Status: Chronic (9) Weakness Status: Chronic (10) Paroxysmal A-fib Status: Chronic Result Diagram: 01/13/19 0550 01/13/19 0550 Results 24hrs Laboratory Tests Test 01/13/19 05:50 White Blood Count 7.7 Red Blood Count 3.21 L Hemoglobin 9.0 L Hematocrit 29.5 L Mean Corpuscular Volume 91.9 Mean Corpuscular Hemoglobin 28.0 L Mean Corpuscular Hemoglobin Concent 30.5 L Red Cell Distribution Width 16.4 H Platelet Count 138 L Mean Platelet Volume 10.5 H Immature Granulocytes % 0.400 Neutrophils % 73.4 Lymphocytes % 11.8 L Monocytes % 11.9 H Eosinophils % 2.1 Basophils % 0.4 Nucleated Red Blood Cells % 0.0 Immature Granulocytes # 0.030 Neutrophils # 5.6 Lymphocytes # 0.9 Monocytes # 0.9 Eosinophils # 0.2 Basophils # 0.0 Nucleated Red Blood Cells # 0.0 Sodium Level 143 Potassium Level 3.5 Chloride Level 112 H Carbon Dioxide Level 24 Anion Gap 7 Blood Urea Nitrogen 13 # Creatinine 0.94 Est Glomerular Filtrat Rate mL/min Glucose Level 95 Calcium Level 9.0 Total Bilirubin 0.1 L Direct Bilirubin 0.00 Indirect Bilirubin 0.1 Aspartate Amino Transf (AST/SGOT) 12 L Alanine Aminotransferase (ALT/SGPT) 10 L Alkaline Phosphatase 83 Total Protein 5.9 L Albumin 2.9 L Globulin 3.00 Albumin/Globulin Ratio 0.96 Subjective 24 Hr Interval Summary Free Text/Dictation Patient asleep barely arousable. Exam/Review of Systems Exam Vitals Vital Signs Date Temp Pulse Resp B/P (MAP) Pulse Ox O2 O2 Flow FiO2 Time Delivery Rate 01/13/19 62 16:01 01/13/19 98.2 18 112/62 98 15:51 (79) 01/13/19 Nasal 2.0 13:43 Cannula 01/12/19 21 19:40 Intake and Output 01/12/19 01/12/19 01/13/19 1515:00 23:00 07:00 IntakeIntake Total 400 ml 850 ml 850 ml OutputOutput Total 200 ml BalanceBalance 400 ml 850 ml 650 ml Head: normocephalic, atraumatic ENMT: nl external ears & nose Respiratory: crackles/rales Cardiovascular: regular rate and rhythm Gastrointestinal: soft, other (bilateral ostomies) Musculoskeletal: nl extremities to inspection Results Results 24hrs Laboratory Tests Test 01/13/19 05:50 White Blood Count 7.7 Red Blood Count 3.21 L Hemoglobin 9.0 L Hematocrit 29.5 L Mean Corpuscular Volume 91.9 Mean Corpuscular Hemoglobin 28.0 L Mean Corpuscular Hemoglobin Concent 30.5 L Red Cell Distribution Width 16.4 H Platelet Count 138 L Mean Platelet Volume 10.5 H Immature Granulocytes % 0.400 Neutrophils % 73.4 Lymphocytes % 11.8 L Monocytes % 11.9 H Eosinophils % 2.1 Basophils % 0.4 Nucleated Red Blood Cells % 0.0 Immature Granulocytes # 0.030 Neutrophils # 5.6 Lymphocytes # 0.9 Monocytes # 0.9 Eosinophils # 0.2 Basophils # 0.0 Nucleated Red Blood Cells # 0.0 Sodium Level 143 Potassium Level 3.5 Chloride Level 112 H Carbon Dioxide Level 24 Anion Gap 7 Blood Urea Nitrogen 13 # Creatinine 0.94 Est Glomerular Filtrat Rate mL/min Glucose Level 95 Calcium Level 9.0 Total Bilirubin 0.1 L Direct Bilirubin 0.00 Indirect Bilirubin 0.1 Aspartate Amino Transf (AST/SGOT) 12 L Alanine Aminotransferase (ALT/SGPT) 10 L Alkaline Phosphatase 83 Total Protein 5.9 L Albumin 2.9 L Globulin 3.00 Albumin/Globulin Ratio 0.96 Medications Medication Current Medications Dextrose/Sodium Chloride 1,000 ml @ 75 mls/hr [id number] IV Last administered on 01/12/19 12:26; Admin Dose 75 MLS/HR; Start 01/09/19 at 21:26 IV Flush (NS 3 ml) 3 ml PER PROTOCOL IV ; Start 01/09/19 at 21:30 Ondansetron HCl (Zofran Inj) 4 mg Q6H PRN IV NAUSEA/VOMITING; Start 01/09/19 at 21:30 Clonidine (Catapres) 0.1 mg TID PRN PO sbp >170; Start 01/09/19 at 22:00 Acetaminophen (Tylenol Tab) 650 mg TID PRN PO MILD PAIN(1-3)OR ELEVATED TEMP; Start 01/09/19 at 22:00 Apixaban (Eliquis) 5 mg BID PO Last administered on 01/13/19at 10:01; Admin Dose 5 MG; Start 01/10/19 at 09:00 Aripiprazole (Abilify) 5 mg DAILY PO Last administered on 01/13/19 10:00; Admin Dose 5 MG; Start 01/10/19 at 09:00 Metoprolol Tartrate (Lopressor) 50 mg BID PO Last administered on 01/13/19 09:59; Admin Dose 50 MG; Start 01/10/19 at 09:00 Mirtazapine (Remeron) 15 mg HS PO Last administered on 01/11/19 21:51; Admin Dose 15 MG; Start 01/10/19 at 21:00 Pantoprazole (Protonix Tab) 40 mg AC BREAKFAST PO Last administered on 01/13/19 07:25; Admin Dose 40 MG; Start 01/10/19 at 07:00 Diltiazem HCl (Cardizem Cd) 120 mg DAILY PO Last administered on 01/12/19 08:39; Admin Dose 120 MG; Start 01/10/19 at 09:00 Miscellaneous Information (Pending [facility] Order For Wound Care) This patient sawyer... PRN PRN XX WOUND CARE; Start 01/10/19 at 07:30 Levalbuterol (Xopenex Neb) 0.63 mg Q6H RESP THERAPY HHN Last administered on 01/13/19 13:40; Admin Dose 0.63 MG; Start 01/10/19 at 14:00 Prednisone (Prednisone) 5 mg DAILY PO Last administered on 01/13/19 10:00; Admin Dose 5 MG; Start 01/11/19 at 09:00 Prednisone (Prednisone) 2 mg DAILY PO Last administered on 01/13/19 10:00; Admin Dose 2 MG; Start 01/11/19 at 09:00 Fluticasone/ Vilanterol (Breo Ellipta 200-25 Mcg Inh) 1 inh DAILY INH Last administered on 01/12/19 08:47; Admin Dose 1 INH; Start 01/11/19 at 09:00 Tiotropium [place] (Spiriva) 1 inh DAILY INH Last administered on 01/12/19 08:39; Admin Dose 1 INH; Start 01/11/19 at 09:00 Vancomycin HCl (Vanco Iv Per Pharmacy) VANCOMYCIN PER PHARMACY PER PROTOCOL XX ; Start 01/10/19 at 18:00 Vancomycin HCl 1.25 gm/Sodium Chloride 250 ml @ 83.333 mls/ hr Q24H IVPB Last administered on 01/12/19 21:48; Admin Dose 83.333 MLS/HR; Start 01/11/19 at 22:00 Diazepam (Valium) 2 mg HS PO ; Start 01/12/19 at 21:00 Guaifenesin (Mucinex) 600 mg BID PO Last administered on 01/13/19 09:00; Admin Dose 600 MG; Start 01/12/19 at 09:00 Acetylcysteine (Mucomyst) 2 ml Q6H RESP THERAPY NEB Last administered on 01/13/19 13:40; Admin Dose 2 ML; Start 01/12/19 at 02:00 Meropenem/Sodium Chloride 50 ml @ 100 mls/hr Q12 IVPB Last administered on 3/18/19at 08:37; Admin Dose 100 MLS/HR; Start 01/12/19 at 17:00 Lorazepam (Ativan) 1 mg Q8H PRN IV agitation, anxiety; Start 01/12/19 at 16:00 Moxifloxacin HCl (Vigamox) 1 drop TID BOTH EYES Last administered on 01/13/19at 13:00; Admin Dose 1 DROP; Start 01/12/19 at 21:00 Miscellaneous Information (*Rx Drug Level Order Reminder*) VANCOMYCIN TROUGH AT 2100 ONCE ONCE XX ; Start 01/13/19 at 21:00; Stop 01/13/19 at 21:01 BREEZY FRIAS MD Jan 13, 2019 17:28
[2019-01-13] MEDS: DIAZEPAM 2 MG TAB PO SCH (21:50)
[2019-01-13] MEDS: MIRTAZAPINE 15 MG TAB PO SCH (21:51)
[2019-01-14] VITALS (12 sets, daily range): BP systolic 104–128; BP diastolic 48–65; PULSE 58–71; RESP 18–20
[2019-01-14] MEDS: VANCOMYCIN HCL 1.25 GM in SOD CHLORIDE 0.9% 250 ML IVPB SCH (00:05)
[2019-01-14] MEDS: ACETYLCYSTEINE 20% 4 ML VIAL NEB SCH ×4 (02:45→20:04)
[2019-01-14] MEDS: LEVALBUTEROL (NEB) 0.63 MG/3 ML AMP HHN SCH ×4 (03:45→20:04)
[2019-01-14] MEDS: PANTOPRAZOLE (EC) 40 MG TAB PO SCH (07:25)
--- NOTE | 2019-01-14 07:30 | CONS ---
Assessment/Plan Assessment/Plan Hospital Course (Demo Recall) 1) MRSA bacteremia unclear source repeat blood cx now no significant microscopic hematuria noted, will check RF in a.m. will order 2d echo, to be read by Dr. 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 6) recent DVT L calf is enlarged, to get venous doppler of area and if clot still present will order WBC to r/o infected clot 01/14 - no change in clot size on repeat venous doppler I will order WBC scan to see if there is possible infected clot, but I think it is low likelihood 7) LUE phlebitis this is likely due to a prior IV site to that area and became present after admission most likely 01/14 - improved Consultation Date/Type/Reason Admit Date/Time Jan 10, 2019 at 11:21 Initial Consult Date 01/13/19 Type of Consult ID Date/Time of Note DATE: 01/14/19 TIME: 07:21 24 HR Interval Summary Free Text/Dictation pt opened eyes and did open mouth upon command but did not answer questions Exam/Review of Systems Exam Vitals Vital Signs Date Temp Pulse Resp B/P (MAP) Pulse Ox O2 O2 Flow FiO2 Time Delivery Rate 01/14/19 98.0 59 19 112/48 95 04:12 (69) 01/14/19 Nasal 2.0 04:04 Cannula 01/12/19 21 19:40 Intake and Output 01/13/19 01/13/19 01/14/19 1515:00 23:00 07:00 IntakeIntake Total 700 ml 700 ml OutputOutput Total 800 ml 450 ml BalanceBalance -100 ml 250 ml Constitutional: alert Eyes: nl sclera ENMT: mucosa pink and moist Respiratory: clear to auscultation Cardiovascular: regular rate and rhythm Gastrointestinal: soft, non-tender Results Result Diagram: 01/13/19 0550 01/13/19 0550 Results 24hrs Laboratory Tests Test 01/13/19 21:13 Vancomycin Level Trough 16.9 Medications Medication Current Medications IV Flush (NS 3 ml) 3 ml PER PROTOCOL IV ; Start 01/09/19 at 21:30 Ondansetron HCl (Zofran Inj) 4 mg Q6H PRN IV NAUSEA/VOMITING; Start 01/09/19 at 21:30 Clonidine (Catapres) 0.1 mg TID PRN PO sbp >170; Start 01/09/19 at 22:00 Acetaminophen (Tylenol Tab) 650 mg TID PRN PO MILD PAIN(1-3)OR ELEVATED TEMP; Start 01/09/19 at 22:00 Apixaban (Eliquis) 5 mg BID PO Last administered on 01/13/19at 21:50; Admin Dose 5 MG; Start 01/10/19 at 09:00 Aripiprazole (Abilify) 5 mg DAILY PO Last administered on 01/13/19at 10:00; Admin Dose 5 MG; Start 01/10/19 at 09:00 Metoprolol Tartrate (Lopressor) 50 mg BID PO Last administered on 01/13/19 21:51; Admin Dose 50 MG; Start 01/10/19 at 09:00 Mirtazapine (Remeron) 15 mg HS PO Last administered on 01/13/19 21:51; Admin Dose 15 MG; Start 01/10/19 at 21:00 Pantoprazole (Protonix Tab) 40 mg AC BREAKFAST PO Last administered on 01/13/19at 07:25; Admin Dose 40 MG; Start 01/10/19 at 07:00 Diltiazem HCl (Cardizem Cd) 120 mg DAILY PO Last administered on 01/12/19 08:39; Admin Dose 120 MG; Start 01/10/19 at 09:00 Miscellaneous Information (Pending Santyl Order For Wound Care) This patient sawyer... PRN PRN XX WOUND CARE; Start 01/10/19 at 07:30 Levalbuterol (Xopenex Neb) 0.63 mg Q6H RESP THERAPY HHN Last administered on 01/14/19 03:45; Admin Dose 0.63 MG; Start 01/10/19 at 14:00 Prednisone (Prednisone) 5 mg DAILY PO Last administered on 01/13/19 10:00; Admin Dose 5 MG; Start 01/11/19 at 09:00 Prednisone (Prednisone) 2 mg DAILY PO Last administered on 01/13/19 10:00; Admin Dose 2 MG; Start 01/11/19 at 09:00 Fluticasone/ Vilanterol (Breo Ellipta 200-25 Mcg Inh) 1 inh DAILY INH Last administered on 01/12/19 08:47; Admin Dose 1 INH; Start 01/11/19 at 09:00 Tiotropium [place] (Spiriva) 1 inh DAILY INH Last administered on 01/12/19 08:39; Admin Dose 1 INH; Start 01/11/19 at 09:00 Vancomycin HCl (Vanco Iv Per Pharmacy) VANCOMYCIN PER PHARMACY PER PROTOCOL XX ; Start 01/10/19 at 18:00 Vancomycin HCl 1.25 gm/Sodium Chloride 250 ml @ 83.333 mls/ hr Q24H IVPB Last administered on 01/14/19 00:05; Admin Dose 83.333 MLS/HR; Start 01/11/19 at 22:00 Diazepam (Valium) 2 mg HS PO Last administered on 01/13/19 21:50; Admin Dose 2 MG; Start 01/12/19 at 21:00 Guaifenesin (Mucinex) 600 mg BID PO Last administered on 01/13/19 21:50; Admin Dose 600 MG; Start 01/12/19 at 09:00 Acetylcysteine (Mucomyst) 2 ml Q6H RESP THERAPY NEB Last administered on 01/14/19 02:45; Admin Dose 2 ML; Start 01/12/19 at 02:00 Meropenem/Sodium Chloride 50 ml @ 100 mls/hr Q12 IVPB Last administered on 01/13/19at 21:00; Admin Dose 100 MLS/HR; Start 01/12/19 at 17:00 Moxifloxacin HCl (Vigamox) 1 drop TID BOTH EYES Last administered on 01/13/19at 21:54; Admin Dose 1 DROP; Start 01/12/19 at 21:00 MIGUELITO VASQUEZ MD Jan 14, 2019 07:30
[2019-01-14] MEDS: MEROPENEM 1 GM/50ML(PMX) 50 ML IVPB SCH ×2 (09:14→21:28)
[2019-01-14] MEDS: TIOTROPIUM 18 MCG CAPSULE INHA DEV INH SCH (09:15)
[2019-01-14] MEDS: MOXIFLOXACIN 0.5% 3 ML OPH BOTH EYES SCH ×3 (09:15→21:30)
[2019-01-14] MEDS: ARIPIPRAZOLE 5 MG TAB PO SCH (09:16)
[2019-01-14] MEDS: APIXABAN 5 MG TABLET PO SCH ×2 (09:17→21:30)
[2019-01-14] MEDS: DILTIAZEM (CD) 120 MG CAP PO SCH (09:17)
[2019-01-14] MEDS: predniSONE 5 MG TAB PO SCH (09:17)
[2019-01-14] MEDS: BALSAM PERU/CASTOR OIL 60 GM TUBE TOP SCH (09:17)
[2019-01-14] MEDS: METOPROLOL 50 MG TAB PO SCH ×2 (09:17→21:28)
[2019-01-14] MEDS: GUAIFENESIN LA 600 MG TABSR PO SCH ×2 (09:17→21:29)
[2019-01-14] MEDS: predniSONE 1 MG TAB PO SCH (09:17)
[2019-01-14] MEDS: FLUTICASONE/VILANTEROL 200-25 INH DEVICE INH SCH (14:02)
--- NOTE | 2019-01-14 17:22 | PN ---
Date/Time of Note Date/Time of Note DATE: 01/14/19 TIME: 17:21 Assessment/Plan VTE Prophylaxis Risk score (from [facility] [place])>0 risk: 10 SCD applied (from [facility] [place]): No SCD contraindicated: DVT Pharmacological prophylaxis: apixaban Lines/Catheters IV C[facility]ter Type (from [facility]): Mid Line Assessment/Plan Assessment/Plan (1) Encephalopathy Status: Acute Comment: fluctuating mental status may be due to infections or meds- related. Will change diazepam to prn only. (2) UTI (urinary tract infection) Status: Acute Comment: Patient on meropenem for ESBL E Coli and Pseudomonas. Qualifiers: Urinary tract infection type: acute cystitis Hematuria presence: without hematuria Qualified Codes: N30.00 - Acute cystitis without hematuria (3) Bacteremia Status: Acute Comment: agree with work up for MRSA bacteremia per ID Dr. Taylor. Continue Vanco for now. (4) Acute conjunctivitis of both eyes Status: Acute, improving Comment: Maxitrol changed to Vigamox. Sinus CT normal. 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 (6) COPD (chronic obstructive pulmonary disease) Status: Chronic Comment: Stable on current meds . Will continue steroid taper when patient more stable. (7) GERD with esophagitis Status: Chronic Comment: Keep head of bed elevated to prevent aspiration pneumonitis. (8) CHF (congestive heart failure) Status: Chronic (9) Weakness Status: Chronic (10) Paroxysmal A-fib Status: Chronic Result Diagram: 01/14/19 0744 01/14/19 0744 Results 24hrs Laboratory Tests Test 01/13/19 21:13 01/14/19 07:44 Vancomycin Level Trough 16.9 White Blood Count 8.4 Red Blood Count 3.35 L Hemoglobin 9.6 L Hematocrit 31.1 L Mean Corpuscular Volume 92.8 Mean Corpuscular Hemoglobin 28.7 L Mean Corpuscular Hemoglobin Concent 30.9 L Red Cell Distribution Width 16.5 H Platelet Count 141 Mean Platelet Volume 10.9 H Immature Granulocytes % 0.500 H Neutrophils % 75.2 Lymphocytes % 10.0 L Monocytes % 11.1 H Eosinophils % 2.8 Basophils % 0.4 Nucleated Red Blood Cells % 0.0 Immature Granulocytes # 0.040 H Neutrophils # 6.4 Lymphocytes # 0.8 Monocytes # 0.9 Eosinophils # 0.2 Basophils # 0.0 Nucleated Red Blood Cells # 0.0 Sodium Level 142 Potassium Level 4.1 Chloride Level 109 Carbon Dioxide Level 25 Anion Gap 8 Blood Urea Nitrogen 11 Creatinine 0.83 Est Glomerular Filtrat Rate mL/min Glucose Level 76 Calcium Level 9.0 Ammonia 12 Rheumatoid Factor Screen NEGATIVE Subjective 24 Hr Interval Summary Free Text/Dictation Patient is awake , confused. Exam/Review of Systems Exam Vitals Vital Signs Date Temp Pulse Resp B/P (MAP) Pulse Ox O2 O2 Flow FiO2 Time Delivery Rate 01/14/19 98.0 67 20 116/51 98 16:24 (72) 01/14/19 Nasal 2.0 14:33 Cannula 01/12/19 19:40 Intake and Output 01/13/19 01/13/19 01/14/19 1515:00 23:00 07:00 IntakeIntake Total 700 ml 700 ml OutputOutput Total 800 ml 450 ml BalanceBalance -100 ml 250 ml Constitutional: alert Psych: confusion Head: normocephalic, atraumatic Eyes: nl conjunctiva, nl lids, nl sclera Neck: supple Respiratory: clear to auscultation Cardiovascular: regular rate and rhythm Musculoskeletal: nl extremities to inspection Results Results 24hrs Laboratory Tests Test 01/13/19 21:13 01/14/19 07:44 Vancomycin Level Trough 16.9 White Blood Count 8.4 Red Blood Count 3.35 L Hemoglobin 9.6 L Hematocrit 31.1 L Mean Corpuscular Volume 92.8 Mean Corpuscular Hemoglobin 28.7 L Mean Corpuscular Hemoglobin Concent 30.9 L Red Cell Distribution Width 16.5 H Platelet Count 141 Mean Platelet Volume 10.9 H Immature Granulocytes % 0.500 H Neutrophils % 75.2 Lymphocytes % 10.0 L Monocytes % 11.1 H Eosinophils % 2.8 Basophils % 0.4 Nucleated Red Blood Cells % 0.0 Immature Granulocytes # 0.040 H Neutrophils # 6.4 Lymphocytes # 0.8 Monocytes # 0.9 Eosinophils # 0.2 Basophils # 0.0 Nucleated Red Blood Cells # 0.0 Sodium Level 142 Potassium Level 4.1 Chloride Level 109 Carbon Dioxide Level 25 Anion Gap 8 Blood Urea Nitrogen 11 Creatinine 0.83 Est Glomerular Filtrat Rate mL/min Glucose Level 76 Calcium Level 9.0 Ammonia 12 Rheumatoid Factor Screen NEGATIVE Medications Medication Current Medications IV Flush (NS 3 ml) 3 ml PER PROTOCOL IV ; Start 01/09/19 at 21:30 Ondansetron HCl (Zofran Inj) 4 mg Q6H PRN IV NAUSEA/VOMITING; Start 01/09/19 at 21:30 Clonidine (Catapres) 0.1 mg TID PRN PO sbp >170; Start 01/09/19 at 22:00 Acetaminophen (Tylenol Tab) 650 mg TID PRN PO MILD PAIN(1-3)OR ELEVATED TEMP; Start 01/09/19 at 22:00 Apixaban (Eliquis) 5 mg BID PO Last administered on 01/14/19 09:17; Admin Dose 5 MG; Start 01/10/19 at 09:00 Aripiprazole (Abilify) 5 mg DAILY PO Last administered on 01/14/19 09:16; Admin Dose 5 MG; Start 01/10/19 at 09:00 Metoprolol Tartrate (Lopressor) 50 mg BID PO Last administered on 01/14/19 09:17; Admin Dose 50 MG; Start 01/10/19 at 09:00 Mirtazapine (Remeron) 15 mg HS PO Last administered on 01/13/19 21:51; Admin Dose 15 MG; Start 01/10/19 at 21:00 Pantoprazole (Protonix Tab) 40 mg AC BREAKFAST PO Last administered on 01/14/19 07:25; Admin Dose 40 MG; Start 01/10/19 at 07:00 Diltiazem HCl (Cardizem Cd) 120 mg DAILY PO Last administered on 01/14/19 09:17; Admin Dose 120 MG; Start 01/10/19 at 09:00 Miscellaneous Information (Pending Santyl Order For Wound Care) This patient sawyer... PRN PRN XX WOUND CARE; Start 01/10/19 at 07:30 Levalbuterol (Xopenex Neb) 0.63 mg Q6H RESP THERAPY HHN Last administered on 01/14/19 14:25; Admin Dose 0.63 MG; Start 01/10/19 at 14:00 Prednisone (Prednisone) 5 mg DAILY PO Last administered on 01/14/19 09:17; Admin Dose 5 MG; Start 01/11/19 at 09:00 Prednisone (Prednisone) 2 mg DAILY PO Last administered on 01/14/19 09:17; Admin Dose 2 MG; Start 01/11/19 at 09:00 Fluticasone/ Vilanterol (Breo Ellipta 200-25 Mcg Inh) 1 inh DAILY INH Last administered on 01/14/19 14:02; Admin Dose 1 INH; Start 01/11/19 at 09:00 Tiotropium [place] (Spiriva) 1 inh DAILY INH Last administered on 01/14/19 09:15; Admin Dose 1 INH; Start 01/11/19 at 09:00 Vancomycin HCl (Vanco Iv Per Pharmacy) VANCOMYCIN PER PHARMACY PER PROTOCOL XX ; Start 01/10/19 at 18:00 Diazepam (Valium) 2 mg HS PO Last administered on 01/13/19 21:50; Admin Dose 2 MG; Start 01/12/19 at 21:00 Guaifenesin (Mucinex) 600 mg BID PO Last administered on 01/14/19 09:17; Admin Dose 600 MG; Start 01/12/19 at 09:00 Acetylcysteine (Mucomyst) 2 ml Q6H RESP THERAPY NEB Last administered on 01/14/19 14:25; Admin Dose 2 ML; Start 01/12/19 at 02:00 Meropenem/Sodium Chloride 50 ml @ 100 mls/hr Q12 IVPB Last administered on 01/14/19 09:14; Admin Dose 100 MLS/HR; Start 01/12/19 at 17:00 Moxifloxacin HCl (Vigamox) 1 drop TID BOTH EYES Last administered on 01/14/19 14:03; Admin Dose 1 DROP; Start 01/12/19 at 21:00 Vancomycin HCl 250 ml @ 125 mls/hr Q24H IVPB ; Start 01/14/19 at 22:00 BREEZY FRIAS MD Jan 14, 2019 17:22
[2019-01-14] MEDS ORDERED: DIAZEPAM 2 MG TAB PO PRN (17:30)
--- NOTE | 2019-01-14 19:22 | RADRPT ---
Echocardiogram Report Patient Name: FARHAT WATERMANPatient ID: [id number] : 10 (83y 6m)Study Date: 01/13/2019 1:12:54 PM Gender: MAccession #: [id number] Tech: Jt [facility] Location: [address] Ref.Physician: MIGUELITO VASQUEZ Height(Cm): BSA: Weight(Kg): Quality: Technically Difficult StudyAccount #: Procedures: Echocardiographic Report: Transthoracic echocardiogram with complete 2D, M-Mode, and doppler examination. Indications: MRSA, R/O Endocarditis. Measurements: 2D/M Mode Doppler Measurement Value Normal Range Measurement Value Normal Range LVIDd 2D 5.1 [ 4.2 - 5.8 ] cm AV Peak Manolo 1.3 [ 100.0 - 170.0 ] cm/sec LVIDs 2D 3.8 [ 2.5 - 4.0 ] cm AV Peak PG 7.0 [ 2.0 - 9.0 ] mmHg LVPWd 2D 1.5 [ 0.6 - 1.0 ] cm LVOT Peak Manolo 0.7 [ 70.0 - 110.0 ] cm/sec IVSd 2D 1.4 [ 0.6 - 1.0 ] cm LVOT Peak PG 2.0 [ 2.0 - 6.0 ] mmHg AoR Diam 2D 3.2 [ 2.6 - 3.4 ] cm MV E Peak Manolo 0.7 [ 60.0 - 130.0 ] cm/sec EDV 2D 125.0 [ 62.0 - 150.0 ] ml MV A Peak Manolo 0.9 [ 100.0 - 120.0 ] cm/sec ESV 2D 63.1 [ 21.0 - 61.0 ] ml MV E/A 0.8 [ 0.8 - 1.5 ] ratio EF 2D 49.5 [ 52.0 - 72.0 ] percent MV Decel Time 183 [ 104 - 258 ] msec LA Dimen 2D 3.4 [ 3.0 - 4.0 ] cm Lat E` Manolo 0.1 [ 10.0 - 15.0 ] cm/sec Lateral E/E` 11.6 [ 1.0 - 2.0 ] ratio MV E/A 0.8 [ 0.8 - 1.5 ] ratio TR Peak Manolo 3.2 [ 100.0 - 280.0 ] cm/sec TR Peak PG 41.0 mmHg RVSP 44.0 [ 10.0 - 36.0 ] mmHg Findings: Left Ventricle: Lower limits of normal systolic function. Normal left ventricular cavity size. Moderate concentric left ventricular hypertrophy. Ejection fraction is visually estimated at 50 %. Tissue Doppler/Mitral Doppler indices are consistent with impaired relaxation (Stage I diastolic dysfunction). Right Ventricle: Normal right ventricular systolic function. Moderate enlargement of right ventricle. Left Atrium: The left atrium is normal in size. Right Atrium: The right atrium is normal in size. Mitral Valve: Mild mitral leaflet calcification. Mild mitral annular calcification. Mild mitral valve regurgitation. Aortic Valve: No significant aortic stenosis or insufficiency. Aortic cusps appear mildly calcified. Tricuspid Valve: Tricuspid valve not well visualized. Estimated peak PA systolic pressure 44 mmHg. There is trace tricuspid regurgitation. Pulmonic Valve: Pulmonic valve not well visualized. Pericardium: Normal pericardium with no significant pericardial effusion. Aorta: Normal aortic root. IVC: Normal size and normal respiratory collapse consistent with normal right atrial pressure. Conclusions: Lower limits of normal systolic function. Normal left ventricular cavity size. Moderate concentric left ventricular hypertrophy. Ejection fraction is visually estimated at 50 %. Tissue Doppler/Mitral Doppler indices are consistent with impaired relaxation (Stage I diastolic dysfunction). Normal right ventricular systolic function. Moderate enlargement of right ventricle. The left atrium is normal in size. The right atrium is normal in size. Mild mitral valve regurgitation. No significant valvular stenosis or regurgitation seen of remaining visualized valves. Normal pericardium with no significant pericardial effusion. Electronically Signed By: Meek Erickson 2019-01-14 19:22:23 PDT
[2019-01-14] MEDS: MIRTAZAPINE 15 MG TAB PO SCH (21:29)
[2019-01-14] MEDS ORDERED: VANCOMYCIN 1 GM 250 ML IVPB SCH (22:00)
[2019-01-15] VITALS (12 sets, daily range): BP systolic 95–115; BP diastolic 47–56; PULSE 59–79; RESP 16–20
[2019-01-15] MEDS: ACETYLCYSTEINE 20% 4 ML VIAL NEB SCH ×4 (01:32→19:48)
[2019-01-15] MEDS: LEVALBUTEROL (NEB) 0.63 MG/3 ML AMP HHN SCH ×4 (01:32→19:48)
--- NOTE | 2019-01-15 07:20 | CONS ---
Assessment/Plan Assessment/Plan Hospital Course (Demo Recall) 1) MRSA bacteremia unclear source repeat blood cx now no significant microscopic hematuria noted, will check RF in a.m. will order 2d echo, to be read by Dr. 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 area 2d echo was done but results are pending final length of IV vanco to be determined by WBC scan results, repeat blood cx and echo results but at least for 2 weeks 01/15 - 2d echo did not show obvious vegetations, sputum cx did eventually grow MRSA likely the bacteremia comes via the lung RF was neg continue with vanco thru 01/23/19 (two week course) 2) bacteriuria with mild-mod pyuria due to pseudomonas and e.coli +ESBL continue with merrem at present 01/14 - continue merrem for a total of 7 days 01/15 - continue merrem thru 01/18/19 3)AMS pt is lethargic was apparently speaking upon admission likely due to metabolic encephalopathy check ammonia level in a.m. 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 6) recent DVT L calf is enlarged, to get venous doppler of area and if clot still present will order WBC to r/o infected clot 01/14 - no change in clot size on repeat venous doppler I will order WBC scan to see if there is possible infected clot, but I think it is low likelihood 01/15 - doubt DVT is infected, await WBC scan 7) LUE phlebitis this is likely due to a prior IV site to that area and became present after admission most likely 01/14 - improved Consultation Date/Type/Reason Admit Date/Time Jan 10, 2019 at 11:21 Initial Consult Date 01/13/19 Type of Consult ID Date/Time of Note DATE: 01/15/19 TIME: 07:15 24 HR Interval Summary Free Text/Dictation pt now responds to questions easily he denies N, V, D he states his breathing is good and so is his appetite he wants some ice cream Exam/Review of Systems Exam Vitals Vital Signs Date Temp Pulse Resp B/P (MAP) Pulse Ox O2 O2 Flow FiO2 Time Delivery Rate 01/15/19 59 04:00 01/15/19 98.1 20 95/47 (63) 91 03:19 01/15/19 Nasal 2.0 01:32 Cannula 01/12/19 21 19:40 Intake and Output 01/14/19 01/14/19 01/15/19 1515:00 23:00 07:00 IntakeIntake Total 50 ml 700 ml 250 ml OutputOutput Total 800 ml 700 ml BalanceBalance 50 ml -100 ml -450 ml Exam alert but confused (wants scissors to cut off his IV) Eyes: nl sclera ENMT: mucosa pink and moist Respiratory: clear to auscultation Cardiovascular: regular rate and rhythm Gastrointestinal: soft, non-tender Results Result Diagram: 01/14/19 0744 01/14/19 0744 Results 24hrs Laboratory Tests Test 01/14/19 07:44 01/15/19 06:04 White Blood Count 8.4 Pending Red Blood Count 3.35 L Pending Hemoglobin 9.6 L Pending Hematocrit 31.1 L Pending Mean Corpuscular Volume 92.8 Pending Mean Corpuscular Hemoglobin 28.7 L Pending Mean Corpuscular Hemoglobin Concent 30.9 L Pending Red Cell Distribution Width 16.5 H Pending Platelet Count 141 Pending Mean Platelet Volume 10.9 H Pending Immature Granulocytes % 0.500 H Neutrophils % 75.2 Lymphocytes % 10.0 L Monocytes % 11.1 H Eosinophils % 2.8 Basophils % 0.4 Nucleated Red Blood Cells % 0.0 Immature Granulocytes # 0.040 H Neutrophils # 6.4 Lymphocytes # 0.8 Monocytes # 0.9 Eosinophils # 0.2 Basophils # 0.0 Nucleated Red Blood Cells # 0.0 Sodium Level 142 Potassium Level 4.1 Chloride Level 109 Carbon Dioxide Level 25 Anion Gap 8 Blood Urea Nitrogen 11 Creatinine 0.83 Est Glomerular Filtrat Rate mL/min Glucose Level 76 Calcium Level 9.0 Ammonia 12 Rheumatoid Factor Screen NEGATIVE Medications Medication Current Medications IV Flush (NS 3 ml) 3 ml PER PROTOCOL IV ; Start 01/09/19 at 21:30 Ondansetron HCl (Zofran Inj) 4 mg Q6H PRN IV NAUSEA/VOMITING; Start 01/09/19 at 21:30 Clonidine (Catapres) 0.1 mg TID PRN PO sbp >170; Start 01/09/19 at 22:00 Acetaminophen (Tylenol Tab) 650 mg TID PRN PO MILD PAIN(1-3)OR ELEVATED TEMP; Start 01/09/19 at 22:00 Apixaban (Eliquis) 5 mg BID PO Last administered on 01/14/19 21:30; Admin Dose 5 MG; Start 01/10/19 at 09:00 Aripiprazole (Abilify) 5 mg DAILY PO Last administered on 01/14/19 09:16; Admin Dose 5 MG; Start 01/10/19 at 09:00 Metoprolol Tartrate (Lopressor) 50 mg BID PO Last administered on 01/14/19 21:28; Admin Dose 50 MG; Start 01/10/19 at 09:00 Mirtazapine (Remeron) 15 mg HS PO Last administered on 01/14/19 21:29; Admin Dose 15 MG; Start 01/10/19 at 21:00 Pantoprazole (Protonix Tab) 40 mg AC BREAKFAST PO Last administered on 01/14/19 07:25; Admin Dose 40 MG; Start 01/10/19 at 07:00 Diltiazem HCl (Cardizem Cd) 120 mg DAILY PO Last administered on 01/14/19 09:17; Admin Dose 120 MG; Start 01/10/19 at 09:00 Miscellaneous Information (Pending Santyl Order For Wound Care) This patient sawyer... PRN PRN XX WOUND CARE; Start 01/10/19 at 07:30 Levalbuterol (Xopenex Neb) 0.63 mg Q6H RESP THERAPY HHN Last administered on 01/15/19 01:32; Admin Dose 0.63 MG; Start 01/10/19 at 14:00 Prednisone (Prednisone) 5 mg DAILY PO Last administered on 01/14/19 09:17; Admin Dose 5 MG; Start 01/11/19 at 09:00 Prednisone (Prednisone) 2 mg DAILY PO Last administered on 01/14/19 09:17; Admin Dose 2 MG; Start 01/11/19 at 09:00 Fluticasone/ Vilanterol (Breo Ellipta 200-25 Mcg Inh) 1 inh DAILY INH Last admi nistered on 01/14/19 14:02; Admin Dose 1 INH; Start 01/11/19 at 09:00 Tiotropium [place] (Spiriva) 1 inh DAILY INH Last administered on 01/14/19 09:15; Admin Dose 1 INH; Start 01/11/19 at 09:00 Vancomycin HCl (Vanco Iv Per Pharmacy) VANCOMYCIN PER PHARMACY PER PROTOCOL XX ; Start 01/10/19 at 18:00 Guaifenesin (Mucinex) 600 mg BID PO Last administered on 01/14/19 21:29; Admin Dose 600 MG; Start 01/12/19 at 09:00 Acetylcysteine (Mucomyst) 2 ml Q6H RESP THERAPY NEB Last administered on 01:32; Admin Dose 2 ML; Start 01/12/19 at 02:00 Meropenem/Sodium Chloride 50 ml @ 100 mls/hr Q12 IVPB Last administered on 01/14/19 21:28; Admin Dose 100 MLS/HR; Start 01/12/19 at 17:00 Moxifloxacin HCl (Vigamox) 1 drop TID BOTH EYES Last administered on 01/14/19 21:30; Admin Dose 1 DROP; Start 01/12/19 at 21:00 Vancomycin HCl 250 ml @ 125 mls/hr Q24H IVPB Last administered on 01/14/19 23:10; Admin Dose 125 MLS/HR; Start 01/14/19 at 22:00 Diazepam (Valium) 2 mg HS PRN PO for agitation, pulling on line Last administered on 01/14/19 21:29; Admin Dose 2 MG; Start 01/14/19 at 17:30 MIGUELITO VASQUEZ MD Jan 15, 2019 07:20
[2019-01-15] MEDS: PANTOPRAZOLE (EC) 40 MG TAB PO SCH (07:40)
[2019-01-15] MEDS: TIOTROPIUM 18 MCG CAPSULE INHA DEV INH SCH (08:25)
[2019-01-15] MEDS: GUAIFENESIN LA 600 MG TABSR PO SCH ×2 (08:25→22:14)
[2019-01-15] MEDS: ARIPIPRAZOLE 5 MG TAB PO SCH (08:25)
[2019-01-15] MEDS: APIXABAN 5 MG TABLET PO SCH ×2 (08:26→22:12)
[2019-01-15] MEDS: predniSONE 1 MG TAB PO SCH (08:26)
[2019-01-15] MEDS: predniSONE 5 MG TAB PO SCH (08:26)
[2019-01-15] MEDS: BALSAM PERU/CASTOR OIL 60 GM TUBE TOP SCH (08:27)
[2019-01-15] MEDS: MOXIFLOXACIN 0.5% 3 ML OPH BOTH EYES SCH ×3 (08:27→21:00)
[2019-01-15] MEDS: METOPROLOL 50 MG TAB PO SCH ×2 (08:27→22:14)
[2019-01-15] MEDS: FLUTICASONE/VILANTEROL 200-25 INH DEVICE INH SCH (08:27)
[2019-01-15] MEDS: MEROPENEM 1 GM/50ML(PMX) 50 ML IVPB SCH ×2 (08:31→22:11)
[2019-01-15] MEDS: DILTIAZEM (CD) 120 MG CAP PO SCH (08:37)
--- NOTE | 2019-01-15 17:53 | PN ---
Date/Time of Note Date/Time of Note DATE: 01/15/19 TIME: 17:47 Assessment/Plan VTE Prophylaxis Risk score (from [facility] [place])>0 risk: 7 SCD applied (from [facility] [place]): No SCD contraindicated: DVT Pharmacological prophylaxis: apixaban Lines/Catheters IV Catheter Type (from [place]): Mid Line Assessment/Plan Assessment/Plan (1) Encephalopathy Status: Acute, improving Comment: fluctuating mental status may be due to infections or meds-related. Improving . Now on diazepam 2mg po only as needed for agitation. (2) UTI (urinary tract infection) Status: Acute Comment: Patient on meropenem for ESBL E Coli and Pseudomonas. (3) Bacteremia Status: Acute Comment: agree with work up for MRSA bacteremia per ID Dr. Taylor. Continue Vanco for now. (4) Acute conjunctivitis of both eyes Status: Acute, improving Comment: Maxitrol changed to Vigamox. Sinus CT normal. 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 (6) COPD (chronic obstructive pulmonary disease) Status: Chronic Comment: Stable on current meds . Will continue steroid taper when patient more stable. (7) GERD with esophagitis Status: Chronic Comment: Keep head of bed elevated to prevent aspiration pneumonitis. (8) Anxiety / Depression Status: Chronic Comment: trial of low dose wellbutrin for depression and smoking cessation. (9) Weakness Status: Chronic Comment: Physical therapy to ambulate pt, out of bed in chair daily now. (10) Paroxysmal A-fib Status: Chronic Result Diagram: 01/15/19 0604 01/15/19 0604 Results 24hrs Laboratory Tests Test 01/15/19 06:04 White Blood Count 10.8 # Red Blood Count 3.40 L Hemoglobin 9.7 L Hematocrit 31.0 L Mean Corpuscular Volume 91.2 Mean Corpuscular Hemoglobin 28.5 L Mean Corpuscular Hemoglobin Concent 31.3 L Red Cell Distribution Width 16.6 H Platelet Count 92 #L Mean Platelet Volume 12.6 H Immature Granulocytes % 0.600 H Neutrophils % Lymphocytes % Monocytes % Eosinophils % Basophils % Nucleated Red Blood Cells % 0.0 Immature Granulocytes # 0.070 H Neutrophils # Lymphocytes # Monocytes # Eosinophils # Basophils # Nucleated Red Blood Cells # Sodium Level 142 Potassium Level 4.7 Chloride Level 110 Carbon Dioxide Level 24 Anion Gap 8 Blood Urea Nitrogen 15 Creatinine 1.30 H Est Glomerular Filtrat Rate mL/min Glucose Level 101 Calcium Level 9.5 Subjective 24 Hr Interval Summary Free Text/Dictation Patient awake and alert. No complaints. Exam/Review of Systems Exam Vitals Vital Signs Date Temp Pulse Resp B/P (MAP) Pulse Ox O2 O2 Flow FiO2 Time Delivery Rate 01/15/19 63 16:03 01/15/19 97.5 16 115/56 98 Nasal 15:38 (75) Cannula 01/15/19 2.0 14:14 01/12/19 21 19:40 Intake and Output 01/14/19 01/14/19 01/15/19 1515:00 23:00 07:00 IntakeIntake Total 50 ml 700 ml 250 ml OutputOutput Total 800 ml 700 ml BalanceBalance 50 ml -100 ml -450 ml Exam Patient was able to ambulate a few steps with FWW and assist today. Constitutional: alert Head: normocephalic, atraumatic ENMT: nl external ears & nose Respiratory: clear to auscultation Cardiovascular: regular rate and rhythm Gastrointestinal: soft, other (bilateral ostomies) Musculoskeletal: nl extremities to inspection Results Results 24hrs Laboratory Tests Test 01/15/19 06:04 White Blood Count 10.8 # Red Blood Count 3.40 L Hemoglobin 9.7 L Hematocrit 31.0 L Mean Corpuscular Volume 91.2 Mean Corpuscular Hemoglobin 28.5 L Mean Corpuscular Hemoglobin Concent 31.3 L Red Cell Distribution Width 16.6 H Platelet Count 92 #L Mean Platelet Volume 12.6 H Immature Granulocytes % 0.600 H Neutrophils % Lymphocytes % Monocytes % Eosinophils % Basophils % Nucleated Red Blood Cells % 0.0 Immature Granulocytes # 0.070 H Neutrophils # Lymphocytes # Monocytes # Eosinophils # Basophils # Nucleated Red Blood Cells # Sodium Level 142 Potassium Level 4.7 Chloride Level 110 Carbon Dioxide Level 24 Anion Gap 8 Blood Urea Nitrogen 15 Creatinine 1.30 H Est Glomerular Filtrat Rate mL/min Glucose Level 101 Calcium Level 9.5 Medications Medication Current Medications IV Flush (NS 3 ml) 3 ml PER PROTOCOL IV ; Start 01/09/19 at 21:30 Ondansetron HCl (Zofran Inj) 4 mg Q6H PRN IV NAUSEA/VOMITING; Start 01/09/19 at 21:30 Clonidine (Catapres) 0.1 mg TID PRN PO sbp >170; Start 01/09/19 at 22:00 Acetaminophen (Tylenol Tab) 650 mg TID PRN PO MILD PAIN(1-3)OR ELEVATED TEMP; Start 01/09/19 at 22:00 Apixaban (Eliquis) 5 mg BID PO Last administered on 01/15/19 08:26; Admin Dose 5 MG; Start 01/10/19 at 09:00 Aripiprazole (Abilify) 5 mg DAILY PO Last administered on 01/15/19 08:25; Admin Dose 5 MG; Start 01/10/19 at 09:00 Metoprolol Tartrate (Lopressor) 50 mg BID PO Last administered on 01/15/19 08:27; Admin Dose 50 MG; Start 01/10/19 at 09:00 Mirtazapine (Remeron) 15 mg HS PO Last administered on 01/14/19 21:29; Admin Dose 15 MG; Start 01/10/19 at 21:00 Pantoprazole (Protonix Tab) 40 mg AC BREAKFAST PO Last administered on 01/15/19 07:40; Admin Dose 40 MG; Start 01/10/19 at 07:00 Diltiazem HCl (Cardizem Cd) 120 mg DAILY PO Last administered on 01/15/19 08:37; Admin Dose 120 MG; Start 01/10/19 at 09:00 Miscellaneous Information (Pending [facility] Order For Wound Care) This patient sawyer... PRN PRN XX WOUND CARE; Start 01/10/19 at 07:30 Levalbuterol (Xopenex Neb) 0.63 mg Q6H RESP THERAPY HHN Last administered on 01/15/19 14:14; Admin Dose 0.63 MG; Start 01/10/19 at 14:00 Prednisone (Prednisone) 5 mg DAILY PO Last administered on 01/15/19 08:26; Admin Dose 5 MG; Start 01/11/19 at 09:00 Prednisone (Prednisone) 2 mg DAILY PO Last administered on 01/15/19 08:26; Admin Dose 2 MG; Start 01/11/19 at 09:00 Fluticasone/ Vilanterol (Breo Ellipta 200-25 Mcg Inh) 1 inh DAILY INH Last administered on 3/20/19at 08:27; Admin Dose 1 INH; Start 01/11/19 at 09:00 Tiotropium [place] (Spiriva) 1 inh DAILY INH Last administered on 01/15/19 08:25; Admin Dose 1 INH; Start 01/11/19 at 09:00 Vancomycin HCl (Vanco Iv Per Pharmacy) VANCOMYCIN PER PHARMACY PER PROTOCOL XX ; Start 01/10/19 at 18:00 Guaifenesin (Mucinex) 600 mg BID PO Last administered on 01/15/19 08:25; Admin Dose 600 MG; Start 01/12/19 at 09:00 Acetylcysteine (Mucomyst) 2 ml Q6H RESP THERAPY NEB Last administered on 01/15/19 14:14; Admin Dose 2 ML; Start 01/12/19 at 02:00 Meropenem/Sodium Chloride 50 ml @ 100 mls/hr Q12 IVPB Last administered on 01/15/19 08:31; Admin Dose 100 MLS/HR; Start 01/12/19 at 17:00 Moxifloxacin HCl (Vigamox) 1 drop TID BOTH EYES Last administered on 01/15/19 12:37; Admin Dose 1 DROP; Start 01/12/19 at 21:00 Vancomycin HCl 250 ml @ 125 mls/hr Q24H IVPB Last administered on 01/14/19 23:10; Admin Dose 125 MLS/HR; Start 01/14/19 at 22:00 Diazepam (Valium) 2 mg HS PRN PO for agitation, pulling on line Last administered on 01/14/19 21:29; Admin Dose 2 MG; Start 01/14/19 at 17:30 Miscellaneous Information (*Rx Drug Level Order Reminder*) VANCOMYCIN TROUGH AT 2100 ONCE ONCE XX ; Start 01/15/19 at 21:00; Stop 01/15/19 at 21:01 BREEZY FRIAS MD Jan 15, 2019 17:53
[2019-01-15] MEDS: MIRTAZAPINE 15 MG TAB PO SCH (22:13)
[2019-01-16] VITALS (11 sets, daily range): BP systolic 100–123; BP diastolic 51–71; PULSE 59–81; RESP 16–19
[2019-01-16] MEDS ORDERED: VANCOMYCIN 750 MG (PMX) 250 ML IVPB SCH (02:00)
[2019-01-16] MEDS: ACETYLCYSTEINE 20% 4 ML VIAL NEB SCH ×4 (02:04→19:42)
[2019-01-16] MEDS: LEVALBUTEROL (NEB) 0.63 MG/3 ML AMP HHN SCH ×4 (02:04→19:42)
[2019-01-16] MEDS: PANTOPRAZOLE (EC) 40 MG TAB PO SCH (06:54)
--- NOTE | 2019-01-16 07:24 | CONS ---
Assessment/Plan Assessment/Plan Hospital Course (Demo Recall) 1) MRSA bacteremia unclear source repeat blood cx now no significant microscopic hematuria noted, will check RF in a.m. will order 2d echo, to be read by Dr. 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 area 2d echo was done but results are pending final length of IV vanco to be determined by WBC scan results, repeat blood cx and echo results but at least for 2 weeks 01/15 - 2d echo did not show obvious vegetations, sputum cx did eventually grow MRSA likely the bacteremia comes via the lung RF was neg continue with vanco thru 01/23/19 (two week course) 01/16 - stable on vanco/merrem decrease in platelets has bounced back, so can continue with vanco thru 01/23 and merrem thru 01/[address] abd/pelv due to mild uptake to R pelvic area 2) bacteriuria with mild-mod pyuria due to pseudomonas and e.coli +ESBL continue with merrem at present 01/14 - continue merrem for a total of 7 days 01/15 - continue merrem thru 01/18/19 3)AMS pt is lethargic was apparently speaking upon admission likely due to metabolic encephalopathy check ammonia level in a.m. 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 6) recent DVT L calf is enlarged, to get venous doppler of area and if clot still present will order WBC to r/o infected clot 01/14 - no change in clot size on repeat venous doppler I will order WBC scan to see if there is possible infected clot, but I think it is low likelihood 01/15 - doubt DVT is infected, await WBC scan 01/16 - no sign on infected clot on WBC scan will order CT abd/pelv to verify no issue to R pelvic area as seen on WBC scan 7) LUE phlebitis this is likely due to a prior IV site to that area and became present after a dmission most likely 01/14 - improved Consultation Date/Type/Reason Admit Date/Time Jan 10, 2019 at 11:21 Initial Consult Date 01/13/19 Type of Consult ID Date/Time of Note DATE: 01/16/19 TIME: 07:18 24 HR Interval Summary Free Text/Dictation spoke to nurse pt remains confused but is eating no V, D Exam/Review of Systems Exam Vitals Vital Signs Date Temp Pulse Resp B/P (MAP) Pulse Ox O2 O2 Flow FiO2 Time Delivery Rate 01/16/19 98.1 70 19 116/52 95 Nasal 04:30 (73) Cannula 01/16/19 2.0 02:05 01/12/19 19:40 Intake and Output 01/15/19 01/15/19 01/16/19 1515:00 23:00 07:00 IntakeIntake Total 50 ml 900 ml OutputOutput Total 900 ml BalanceBalance 50 ml 0 ml Constitutional: alert Eyes: nl sclera Respiratory: clear to auscultation Cardiovascular: regular rate and rhythm Gastrointestinal: soft, non-tender Results Result Diagram: 01/16/19 0621 01/15/19 0604 Results 24hrs Laboratory Tests Test 01/15/19 21:03 01/16/19 06:21 Vancomycin Level Trough 22.4 *H White Blood Count 9.9 Red Blood Count 3.34 L Hemoglobin 9.4 L Hematocrit 31.1 L Mean Corpuscular Volume 93.1 Mean Corpuscular Hemoglobin 28.1 L Mean Corpuscular Hemoglobin Concent 30.2 L Red Cell Distribution Width 16.5 H Platelet Count 141 # Mean Platelet Volume 10.8 H Immature Granulocytes % 0.300 Neutrophils % 78.1 H Lymphocytes % 10.9 L Monocytes % 8.6 Eosinophils % 1.8 Basophils % 0.3 Nucleated Red Blood Cells % 0.0 Immature Granulocytes # 0.030 Neutrophils # 7.7 H Lymphocytes # 1.1 Monocytes # 0.9 Eosinophils # 0.2 Basophils # 0.0 Nucleated Red Blood Cells # 0.0 Medications Medication Current Medications IV Flush (NS 3 ml) 3 ml PER PROTOCOL IV ; Start 01/09/19 at 21:30 Ondansetron HCl (Zofran Inj) 4 mg Q6H PRN IV NAUSEA/VOMITING; Start 01/09/19 at 21:30 Clonidine (Catapres) 0.1 mg TID PRN PO sbp >170; Start 01/09/19 at 22:00 Acetaminophen (Tylenol Tab) 650 mg TID PRN PO MILD PAIN(1-3)OR ELEVATED TEMP; Start 01/09/19 at 22:00 Apixaban (Eliquis) 5 mg BID PO Last administered on 01/15/19 22:12; Admin Dose 5 MG; Start 01/10/19 at 09:00 Aripiprazole (Abilify) 5 mg DAILY PO Last administered on 01/15/19 08:25; Admin Dose 5 MG; Start 01/10/19 at 09:00 Metoprolol Tartrate (Lopressor) 50 mg BID PO Last administered on 01/15/19 22:14; Admin Dose 50 MG; Start 01/10/19 at 09:00 Mirtazapine (Remeron) 15 mg HS PO Last administered on 01/15/19 22:13; Admin Dose 15 MG; Start 01/10/19 at 21:00 Pantoprazole (Protonix Tab) 40 mg AC BREAKFAST PO Last administered on 01/16/19 06:54; Admin Dose 40 MG; Start 01/10/19 at 07:00 Diltiazem HCl (Cardizem Cd) 120 mg DAILY PO Last administered on 01/15/19 08:37; Admin Dose 120 MG; Start 01/10/19 at 09:00 Miscellaneous Information (Pending [facility]yl Order For Wound Care) This patient sawyer... PRN PRN XX WOUND CARE; Start 01/10/19 at 07:30 Levalbuterol (Xopenex Neb) 0.63 mg Q6H RESP THERAPY HHN Last administered on 01/16/19at 02:04; Admin Dose 0.63 MG; Start 01/10/19 at 14:00 Prednisone (Prednisone) 5 mg DAILY PO Last administered on 01/15/19 08:26; Admin Dose 5 MG; Start 01/11/19 at 09:00 Prednisone (Prednisone) 2 mg DAILY PO Last administered on 01/15/19 08:26; Admin Dose 2 MG; Start 01/11/19 at 09:00 Fluticasone/ Vilanterol (Breo Ellipta 200-25 Mcg Inh) 1 inh DAILY INH Last administered on 01/15/19 08:27; Admin Dose 1 INH; Start 01/11/19 at 09:00 Tiotropium [place] (Spiriva) 1 inh DAILY INH Last administered on 01/15/19 08:25; Admin Dose 1 INH; Start 01/11/19 at 09:00 Vancomycin HCl (Vanco Iv Per Pharmacy) VANCOMYCIN PER PHARMACY PER PROTOCOL XX ; Start 01/10/19 at 18:00 Guaifenesin (Mucinex) 600 mg BID PO Last administered on 01/15/19 22:14; Admin Dose 600 MG; Start 01/12/19 at 09:00 Acetylcysteine (Mucomyst) 2 ml Q6H RESP THERAPY NEB Last administered on 01/16/19 02:04; Admin Dose 2 ML; Start 01/12/19 at 02:00 Meropenem/Sodium Chloride 50 ml @ 100 mls/hr Q12 IVPB Last administered on 01/15/19 22:11; Admin Dose 100 MLS/HR; Start 01/12/19 at 17:00 Moxifloxacin HCl (Vigamox) 1 drop TID BOTH EYES Last administered on 01/15/19 21:00; Admin Dose 1 DROP; Start 01/12/19 at 21:00 Diazepam (Valium) 2 mg HS PRN PO for agitation, pulling on line Last administered on 01/14/19 21:29; Admin Dose 2 MG; Start 01/14/19 at 17:30 Vancomycin/Sodium Chloride 250 ml @ 125 mls/hr Q24H IVPB Last administered on 01/16/19 02:43; Admin Dose 125 MLS/HR; Start 01/16/19 at 02:00 Mupirocin (Bactroban) 1 applic BID TOP ; Start 01/16/19 at 09:00 Bupropion HCl (Wellbutrin Sr) 100 mg BID PO ; Start 01/16/19 at 09:00 MIGUELITO VASQUEZ MD Jan 16, 2019 07:23
[2019-01-16] MEDS ORDERED: SOD CHLORIDE 0.9% 100 ML ONE (08:46)
[2019-01-16] MEDS ORDERED: IODIXANOL LOCM 100 ML BTL ONE (08:46)
[2019-01-16] MEDS: MOXIFLOXACIN 0.5% 3 ML OPH BOTH EYES SCH ×3 (09:00→21:19)
[2019-01-16] MEDS: BALSAM PERU/CASTOR OIL 60 GM TUBE TOP SCH (09:00)
[2019-01-16] MEDS: GUAIFENESIN LA 600 MG TABSR PO SCH ×2 (09:30→21:19)
[2019-01-16] MEDS: METOPROLOL 50 MG TAB PO SCH ×2 (09:31→21:19)
[2019-01-16] MEDS: DILTIAZEM (CD) 120 MG CAP PO SCH (09:31)
[2019-01-16] MEDS: ARIPIPRAZOLE 5 MG TAB PO SCH (09:31)
[2019-01-16] MEDS: predniSONE 5 MG TAB PO SCH (09:32)
[2019-01-16] MEDS: predniSONE 1 MG TAB PO SCH (09:32)
[2019-01-16] MEDS: APIXABAN 5 MG TABLET PO SCH ×2 (09:32→21:19)
[2019-01-16] MEDS: FLUTICASONE/VILANTEROL 200-25 INH DEVICE INH SCH (09:34)
[2019-01-16] MEDS: MEROPENEM 1 GM/50ML(PMX) 50 ML IVPB SCH ×2 (09:36→21:18)
[2019-01-16] MEDS: TIOTROPIUM 18 MCG CAPSULE INHA DEV INH SCH (09:37)
[2019-01-16] MEDS: MUPIROCIN 2% 22 GM OINT TOP SCH ×2 (13:01→21:19)
[2019-01-16] MEDS: BUPROPION (SR) 100 MG TAB PO SCH ×2 (13:03→21:19)
--- NOTE | 2019-01-16 15:29 | PN ---
Date/Time of Note Date/Time of Note DATE: 01/16/19 TIME: 15:23 Assessment/Plan VTE Prophylaxis Risk score (from [facility])>0 risk: 6 [place] [facility] [place] contraindicated: DVT Pharmacological prophylaxis: apixaban Lines/Catheters IV Catheter Type (from [facility]): Mid Line Assessment/Plan Assessment/Plan (1) Bacteremia Status: Acute Comment: most likely source of MRSA bacteremia may be respiratory, patient does have history of recurrent aspiration pneumonitis. Continue Vanco for 2 weeks , bactroban to nares. (2) UTI (urinary tract infection) Status: Acute Comment: Patient on meropenem for ESBL E Coli and Pseudomonas. Irregular bladder wall thickening consistent with cystitis but unclear if this is the source of the pelvic inflammation seen on WBC scan. (3) Encephalopathy Status: Acute Comment: fluctuating mental status may be due to infections or meds-related. Improving . (4) Acute conjunctivitis of both eyes Status: Acute, improving Comment: Improved, stop vigamox after 5 days. (5) Weakness Status: Chronic Comment: Physical therapy to ambulate pt, out of bed in chair daily now. (6) COPD (chronic obstructive pulmonary disease) Status: Chronic Comment: Stable on current meds . Will continue steroid taper when patient more stable. (7) GERD with esophagitis Status: Chronic Comment: Keep head of bed elevated to prevent aspiration pneumonitis. (8) Anxiety / Depression Status: Chronic Comment: low dose wellbutrin seems to be helping depression and smoking cessa tion, will taper off mirtazapine. Keep lexapro for anxiety. 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 (10) Paroxysmal A-fib Status: Chronic Result Diagram: 01/16/19 0621 01/16/19 0621 Results 24hrs Laboratory Tests Test 01/15/19 21:03 01/16/19 06:21 Vancomycin Level Trough 22.4 *H White Blood Count 9.9 Red Blood Count 3.34 L Hemoglobin 9.4 L Hematocrit 31.1 L Mean Corpuscular Volume 93.1 Mean Corpuscular Hemoglobin 28.1 L Mean Corpuscular Hemoglobin Concent 30.2 L Red Cell Distribution Width 16.5 H Platelet Count 141 # Mean Platelet Volume 10.8 H Immature Granulocytes % 0.300 Neutrophils % 78.1 H Lymphocytes % 10.9 L Monocytes % 8.6 Eosinophils % 1.8 Basophils % 0.3 Nucleated Red Blood Cells % 0.0 Immature Granulocytes # 0.030 Neutrophils # 7.7 H Lymphocytes # 1.1 Monocytes # 0.9 Eosinophils # 0.2 Basophils # 0.0 Nucleated Red Blood Cells # 0.0 Sodium Level 143 Potassium Level 4.1 Chloride Level 110 Carbon Dioxide Level 24 Anion Gap 9 Blood Urea Nitrogen 19 Creatinine 1.17 Est Glomerular Filtrat Rate mL/min Glucose Level 100 Calcium Level 9.7 Subjective 24 Hr Interval Summary Free Text/Dictation Patient awake and alert, has no complaints. Exam/Review of Systems Exam Vitals Vital Signs Date Temp Pulse Resp B/P (MAP) Pulse Ox O2 O2 Flow FiO2 Time Delivery Rate 01/16/19 97.7 67 18 107/54 98 Nasal 15:08 (71) Cannula 01/16/19 2.0 10:34 01/12/19 21 19:40 Intake and Output 01/15/19 01/15/19 01/16/19 1515:00 23:00 07:00 IntakeIntake Total 50 ml 900 ml 300 ml OutputOutput Total 900 ml 400 ml BalanceBalance 50 ml 0 ml -100 ml Constitutional: alert Eyes: nl conjunctiva, nl lids ENMT: nl external ears & nose Respiratory: clear to auscultation Cardiovascular: regular rate and rhythm Gastrointestinal: soft Musculoskeletal: nl extremities to inspection Results Results 24hrs Laboratory Tests Test 01/15/19 21:03 01/16/19 06:21 Vancomycin Level Trough 22.4 *H White Blood Count 9.9 Red Blood Count 3.34 L Hemoglobin 9.4 L Hematocrit 31.1 L Mean Corpuscular Volume 93.1 Mean Corpuscular Hemoglobin 28.1 L Mean Corpuscular Hemoglobin Concent 30.2 L Red Cell Distribution Width 16.5 H Platelet Count 141 # Mean Platelet Volume 10.8 H Immature Granulocytes % 0.300 Neutrophils % 78.1 H Lymphocytes % 10.9 L Monocytes % 8.6 Eosinophils % 1.8 Basophils % 0.3 Nucleated Red Blood Cells % 0.0 Immature Granulocytes # 0.030 Neutrophils # 7.7 H Lymphocytes # 1.1 Monocytes # 0.9 Eosinophils # 0.2 Basophils # 0.0 Nucleated Red Blood Cells # 0.0 Sodium Level 143 Potassium Level 4.1 Chloride Level 110 Carbon Dioxide Level 24 Anion Gap 9 Blood Urea Nitrogen 19 Creatinine 1.17 Est Glomerular Filtrat Rate mL/min Glucose Level 100 Calcium Level 9.7 Medications Medication Current Medications IV Flush (NS 3 ml) 3 ml PER PROTOCOL IV ; Start 01/09/19 at 21:30 Ondansetron HCl (Zofran Inj) 4 mg Q6H PRN IV NAUSEA/VOMITING; Start 01/09/19 at 21:30 Clonidine (Catapres) 0.1 mg TID PRN PO sbp >170; Start 01/09/19 at 22:00 Acetaminophen (Tylenol Tab) 650 mg TID PRN PO MILD PAIN(1-3)OR ELEVATED TEMP; Start 01/09/19 at 22:00 Apixaban (Eliquis) 5 mg BID PO Last administered on 01/16/19at 09:32; Admin Dose 5 MG; Start 01/10/19 at 09:00 Aripiprazole (Abilify) 5 mg DAILY PO Last administered on 01/16/19 09:31; Admin Dose 5 MG; Start 01/10/19 at 09:00 Metoprolol Tartrate (Lopressor) 50 mg BID PO Last administered on 01/16/19 09:31; Admin Dose 50 MG; Start 01/10/19 at 09:00 Mirtazapine (Remeron) 15 mg HS PO Last administered on 01/15/19at 22:13; Admin Dose 15 MG; Start 01/10/19 at 21:00 Pantoprazole (Protonix Tab) 40 mg AC BREAKFAST PO Last administered on 01/16/19at 06:54; Admin Dose 40 MG; Start 01/10/19 at 07:00 Diltiazem HCl (Cardizem Cd) 120 mg DAILY PO Last administered on 01/16/19 09:31; Admin Dose 120 MG; Start 01/10/19 at 09:00 [facility] This patient sawyer... PRN PRN XX WOUND CARE; Start 01/10/19 at 07:30 Levalbuterol (Xopenex Neb) 0.63 mg Q6H RESP THERAPY HHN Last administered on 01/16/19at 14:04; Admin Dose 0.63 MG; Start 01/10/19 at 14:00 Prednisone (Prednisone) 5 mg DAILY PO Last administered on 01/16/19 09:32; Admin Dose 5 MG; Start 01/11/19 at 09:00 Prednisone (Prednisone) 2 mg DAILY PO Last administered on 01/16/19 09:32; Admin Dose 2 MG; Start 01/11/19 at 09:00 Fluticasone/ Vilanterol (Breo Ellipta 200-25 Mcg Inh) 1 inh DAILY INH Last a dministered on 01/16/19 09:34; Admin Dose 1 INH; Start 01/11/19 at 09:00 Tiotropium [place] (Spiriva) 1 inh DAILY INH Last administered on 01/16/19 09:37; Admin Dose 1 INH; Start 01/11/19 at 09:00 Vancomycin HCl (Vanco Iv Per Pharmacy) VANCOMYCIN PER PHARMACY PER PROTOCOL XX ; Start 01/10/19 at 18:00 Guaifenesin (Mucinex) 600 mg BID PO Last administered on 01/16/19 09:30; Admin Dose 600 MG; Start 01/12/19 at 09:00 Acetylcysteine (Mucomyst) 2 ml Q6H RESP THERAPY NEB Last administered on 14:04; Admin Dose 2 ML; Start 01/12/19 at 02:00 Meropenem/Sodium Chloride 50 ml @ 100 mls/hr Q12 IVPB Last administered on 01/16/19 09:36; Admin Dose 100 MLS/HR; Start 01/12/19 at 17:00 Moxifloxacin HCl (Vigamox) 1 drop TID BOTH EYES Last administered on 01/16/19 13:03; Admin Dose 1 DROP; Start 01/12/19 at 21:00 Diazepam (Valium) 2 mg HS PRN PO for agitation, pulling on line Last adm inistered on 01/14/19 21:29; Admin Dose 2 MG; Start 01/14/19 at 17:30 Mupirocin (Bactroban) 1 applic BID TOP Last administered on 01/16/19 13:01; Admin Dose 1 APPLIC; Start 01/16/19 at 09:00 Bupropion HCl (Wellbutrin Sr) 100 mg BID PO Last administered on 01/16/19 13:03; Admin Dose 100 MG; Start 01/16/19 at 09:00 Vancomycin/Sodium Chloride 250 ml @ 125 mls/hr Q36H IVPB ; Start 01/17/19 at 15 :00 BREEZY FRIAS MD Jan 16, 2019 15:29
[2019-01-16] MEDS: MIRTAZAPINE 15 MG TAB PO SCH (21:19)
[2019-01-17] VITALS (12 sets, daily range): BP systolic 105–137; BP diastolic 53–60; PULSE 60–71; RESP 18–22
[2019-01-17] MEDS: LEVALBUTEROL (NEB) 0.63 MG/3 ML AMP HHN SCH ×4 (01:04→19:37)
[2019-01-17] MEDS: ACETYLCYSTEINE 20% 4 ML VIAL NEB SCH ×4 (01:04→19:37)
[2019-01-17] MEDS: PANTOPRAZOLE (EC) 40 MG TAB PO SCH (06:09)
--- NOTE | 2019-01-17 07:17 | CONS ---
Assessment/Plan Assessment/Plan Hospital Course (Demo Recall) 1) MRSA bacteremia unclear source repeat blood cx now no significant microscopic hematuria noted, will check RF in a.m. will order 2d echo, to be read by Dr. Robbins continue with vanco pt has a recent hx of DVT to LLE and he may need WBC scan to r/o infected clot but will order joel doppler to see if it is still there no open wounds other than the colostomy and ileostomy but nurse reports no redness to the sites pt has a cough and some haziness at L base but unable to get sputum cx, nasal cx is pending 01/14 - sputum cx was obtained and has normal respiratory marely, nasal is positive for MRSA repeat blood cx are NGTD clot still present in LLE but not larger, will order WBC scan to see if machine operator picker noted to clot area 2d echo was done but results are pending final length of IV vanco to be determined by WBC scan results, repeat blood cx and echo results but at least for 2 weeks 01/15 - 2d echo did not show obvious vegetations, sputum cx did eventually grow MRSA likely the bacteremia comes via the lung RF was neg continue with vanco thru 01/23/19 (two week course) 01/16 - stable on vanco/merrem decrease in platelets has bounced back, so can continue with vanco thru 01/23 and merrem thru 01/[address] abd/pelv due to mild uptake to R pelvic area 01/17 - nothing of import seen at RLQ on abd/pelv CT but L kidney complex cyst vs mass is noted pt finishes merrem after 01/18 doses continue vanco thru 01/23 2) bacteriuria with mild-mod pyuria due to pseudomonas and e.coli +ESBL continue with merrem at present 01/14 - continue merrem for a total of 7 days 01/15 - continue merrem thru 01/18/19 3)AMS pt is lethargic was apparently speaking upon admission likely due to metabolic encephalopathy check ammonia level in a.m. 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 6) recent DVT L calf is enlarged, to get venous doppler of area and if clot still present will order WBC to r/o infected clot 01/14 - no change in clot size on repeat venous doppler I will order WBC scan to see if there is possible infected clot, but I think it is low likelihood 01/15 - doubt DVT is infected, await WBC scan 01/16 - no sign on infected clot on WBC scan will order CT abd/pelv to verify no issue to R pelvic area as seen on WBC scan 7) LUE phlebitis this is likely due to a prior IV site to that area and became present after admission most likely 01/14 - improved Consultation Date/Type/Reason Admit Date/Time Jan 10, 2019 at 11:21 Initial Consult Date 01/13/19 Type of Consult ID Date/Time of Note DATE: 01/17/19 TIME: 07:14 24 HR Interval Summary Free Text/Dictation pt is doing well he is hungry, awaiting BF no N, V, D breathing is ok Exam/Review of Systems Exam Vitals Vital Signs Date Temp Pulse Resp B/P (MAP) Pulse Ox O2 O2 Flow FiO2 Time Delivery Rate 01/17/19 98.0 67 18 137/60 98 Nasal 05:00 (85) Cannula 01/17/19 2.0 01:05 Intake and Output 01/16/19 01/16/19 01/17/19 1515:00 23:00 07:00 IntakeIntake Total 50 ml 700 ml 120 ml OutputOutput Total 900 ml 550 ml BalanceBalance 50 ml -200 ml -430 ml Constitutional: alert Eyes: nl sclera ENMT: mucosa pink and moist Respiratory: clear to auscultation Cardiovascular: regular rate and rhythm Gastrointestinal: soft, non-tender Results Result Diagram: 01/16/1962001/16/19620 Medications Medication Current Medications IV Flush (NS 3 ml) 3 ml PER PROTOCOL IV ; Start 01/09/19 at 21:30 Ondansetron HCl (Zofran Inj) 4 mg Q6H PRN IV NAUSEA/VOMITING; Start 01/09/19 at 21:30 Clonidine (Catapres) 0.1 mg TID PRN PO sbp >170; Start 01/09/19 at 22:00 Acetaminophen (Tylenol Tab) 650 mg TID PRN PO MILD PAIN(1-3)OR ELEVATED TEMP; Start 01/09/19 at 22:00 Apixaban (Eliquis) 5 mg BID PO Last administered on 01/16/19 21:19; Admin Dose 5 MG; Start 01/10/19 at 09:00 Aripiprazole (Abilify) 5 mg DAILY PO Last administered on 01/16/19 09:31; Admin Dose 5 MG; Start 01/10/19 at 09:00 Metoprolol Tartrate (Lopressor) 50 mg BID PO Last administered on 01/16/19 21:19; Admin Dose 50 MG; Start 01/10/19 at 09:00 Pantoprazole (Protonix Tab) 40 mg AC BREAKFAST PO Last administered on 01/17/19 06:09; Admin Dose 40 MG; Start 01/10/19 at 07:00 Diltiazem HCl (Cardizem Cd) 120 mg DAILY PO Last administered on 01/16/19 09:31; Admin Dose 120 MG; Start 01/10/19 at 09:00 Miscellaneous Information (Pending Santyl Order For Wound Care) This patient sawyer... PRN PRN XX WOUND CARE; Start 01/10/19 at 07:30 Levalbuterol (Xopenex Neb) 0.63 mg Q6H RESP THERAPY HHN Last administered on 01/17/19 01:04; Admin Dose 0.63 MG; Start 01/10/19 at 14:00 Prednisone (Prednisone) 5 mg DAILY PO Last administered on 01/16/19 09:32; Admin Dose 5 MG; Start 01/11/19 at 09:00 Prednisone (Prednisone) 2 mg DAILY PO Last administered on 01/16/19 09:32; Admin Dose 2 MG; Start 01/11/19 at 09:00 Fluticasone/ Vilanterol (Breo Ellipta 200-25 Mcg Inh) 1 inh DAILY INH Last administered on 01/16/19 09:34; Admin Dose 1 INH; Start 01/11/19 at 09:00 Tiotropium [place] (Spiriva) 1 inh DAILY INH Last administered on 01/16/19 09:37; Admin Dose 1 INH; Start 01/11/19 at 09:00 Vancomycin HCl (Vanco Iv Per Pharmacy) VANCOMYCIN PER PHARMACY PER PROTOCOL XX ; Start 01/10/19 at 18:00 Guaifenesin (Mucinex) 600 mg BID PO Last administered on 01/16/19 21:19; Admin Dose 600 MG; Start 01/12/19 at 09:00 Acetylcysteine (Mucomyst) 2 ml Q6H RESP THERAPY NEB Last administered on 01/17/19at 01:04; Admin Dose 2 ML; Start 01/12/19 at 02:00 Meropenem/Sodium Chloride 50 ml @ 100 mls/hr Q12 IVPB Last administered on 01/16/19at 21:18; Admin Dose 100 MLS/HR; Start 01/12/19 at 17:00 Moxifloxacin HCl (Vigamox) 1 drop TID BOTH EYES Last administered on 01/16/19 21:19; Admin Dose 1 DROP; Start 01/12/19 at 21:00 Diazepam (Valium) 2 mg HS PRN PO for agitation, pulling on line Last administer ed on 01/14/19at 21:29; Admin Dose 2 MG; Start 01/14/19 at 17:30 Mupirocin (Bactroban) 1 applic BID TOP Last administered on 01/16/19at 21:19; Admin Dose 1 APPLIC; Start 01/16/19 at 09:00 Bupropion HCl (Wellbutrin Sr) 100 mg BID PO Last administered on 01/16/19at 21:19; Admin Dose 100 MG; Start 01/16/19 at 09:00 Vancomycin/Sodium Chloride 250 ml @ 125 mls/hr Q36H IVPB ; Start 01/17/19 at 15:00 Escitalopram Oxalate (Lexapro) 5 mg DAILY PO ; Start 01/17/19 at 09:00 MIGUELITO VASQUEZ MD Jan 17, 2019 07:17
[2019-01-17] MEDS: TIOTROPIUM 18 MCG CAPSULE INHA DEV INH SCH (09:00)
[2019-01-17] MEDS: BALSAM PERU/CASTOR OIL 60 GM TUBE TOP SCH (09:00)
[2019-01-17] MEDS: ESCITALOPRAM 10 MG TAB PO SCH (09:56)
[2019-01-17] MEDS: APIXABAN 5 MG TABLET PO SCH ×2 (09:57→21:12)
[2019-01-17] MEDS: DILTIAZEM (CD) 120 MG CAP PO SCH (09:58)
[2019-01-17] MEDS: BUPROPION (SR) 100 MG TAB PO SCH ×2 (09:58→21:12)
[2019-01-17] MEDS: predniSONE 5 MG TAB PO SCH (09:59)
[2019-01-17] MEDS: GUAIFENESIN LA 600 MG TABSR PO SCH ×2 (09:59→21:12)
[2019-01-17] MEDS: ARIPIPRAZOLE 5 MG TAB PO SCH (09:59)
[2019-01-17] MEDS: METOPROLOL 50 MG TAB PO SCH ×2 (09:59→21:12)
[2019-01-17] MEDS: predniSONE 1 MG TAB PO SCH (09:59)
[2019-01-17] MEDS: MUPIROCIN 2% 22 GM OINT TOP SCH ×2 (10:02→21:13)
[2019-01-17] MEDS: FLUTICASONE/VILANTEROL 200-25 INH DEVICE INH SCH (10:04)
[2019-01-17] MEDS: MOXIFLOXACIN 0.5% 3 ML OPH BOTH EYES SCH ×3 (10:04→21:13)
[2019-01-17] MEDS: MEROPENEM 1 GM/50ML(PMX) 50 ML IVPB SCH ×2 (10:05→21:12)
--- NOTE | 2019-01-17 13:26 | PN ---
Date/Time of Note Date/Time of Note DATE: 01/17/19 TIME: 13:25 Assessment/Plan VTE Prophylaxis Risk score (from Ns)>0 risk: 6 SCD applied (from [facility]): No SCD contraindicated: DVT Pharmacological prophylaxis: apixaban Lines/Catheters IV [facility]ter [facility] (from [facility]): Mid Line Assessment/Plan Assessment/Plan (1) Bacteremia Status: Acute Comment: most likely source of MRSA bacteremia may be respiratory, patient does have history of recurrent aspiration pneumonitis. Continue Vanco for 2 weeks ending on 01/23 , bactroban to nares. (2) UTI (urinary tract infection) Status: Acute Comment: Patient on meropenem until tomorrow for ESBL E Coli and Pseudomonas. Irregular bladder wall thickening consistent with cystitis but unclear if this is the source of the pelvic inflammation seen on WBC scan. (3) Encephalopathy Status: Resolved Comment: fluctuating mental status may be due to infections or meds-related. Improved now on diazepam 2mg only as needed for agitation . (4) Acute conjunctivitis of both eyes Status: Acute, improving Comment: Improved, stop vigamox after 5 days. (5) Weakness Status: Chronic Comment: Physical therapy ambulated pt 8 feet yesterday, out of bed in chair daily now. (6) COPD (chronic obstructive pulmonary disease) Status: Chronic Comment: Stable on current meds . Start slow steroid taper now since patient more stable, will reduce prednisone from 7mg to 5mg tomorrow, watch for adrenal insufficiency with hypotension. (7) GERD with esophagitis Status: Chronic Comment: Keep head of bed elevated to prevent aspiration pneumonitis. (8) Anxiety / Depression Status: Chronic Comment: low dose wellbutrin seems to be helping depression and smoking cessation, will taper off mirtazapine. Keep lexapro and abilify for depression and anxiety. 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 Patient on Eliquis. Monitor CBC. (10) Paroxysmal A-fib Status: Chronic, not active. Result Diagram: 01/16/19 0621 01/17/19 0615 Results 24hrs Laboratory Tests Test 01/17/19 06:15 Blood Urea Nitrogen 23 H Creatinine 1.30 H Subjective 24 Hr Interval Summary Free Text/Dictation Patient awake and alert, wants to eat. Complains of no BM for 4 days. Forgot he has ostomies. Exam/Review of Systems Exam Vitals Vital Signs Date Temp Pulse Resp B/P (MAP) Pulse Ox O2 O2 Flow FiO2 Time Delivery Rate 01/17/19 97.6 71 22 117/55 96 Room Air 12:06 (75) 01/17/19 2.0 07:51 Intake and Output 01/16/19 01/16/19 01/17/19 1515:00 23:00 07:00 IntakeIntake Total 50 ml 700 ml 120 ml OutputOutput Total 900 ml 550 ml BalanceBalance 50 ml -200 ml -430 ml Exam Awake and alert but confused. Has wet -cough . Constitutional: alert Psych: no complaints, confusion Head: normocephalic, atraumatic ENMT: nl external ears & nose Neck: supple Respiratory: clear to auscultation, congested cough Cardiovascular: regular rate and rhythm Gastrointestinal: soft, other (bilateral ostomies) Musculoskeletal: nl extremities to inspection Results Results 24hrs Laboratory Tests Test 01/17/19 06:15 Blood Urea Nitrogen 23 H Creatinine 1.30 H Medications Medication Current Medications IV Flush (NS 3 ml) 3 ml PER PROTOCOL IV ; Start 01/09/19 at 21:30 Ondansetron HCl (Zofran Inj) 4 mg Q6H PRN IV NAUSEA/VOMITING; Start 01/09/19 at 21:30 Clonidine (Catapres) 0.1 mg TID PRN PO sbp >170; Start 01/09/19 at 22:00 Acetaminophen (Tylenol Tab) 650 mg TID PRN PO MILD PAIN(1-3)OR ELEVATED TEMP; Start 01/09/19 at 22:00 Apixaban (Eliquis) 5 mg BID PO Last administered on 01/17/19at 09:57; Admin Dose 5 MG; Start 01/10/19 at 09:00 Aripiprazole (Abilify) 5 mg DAILY PO Last administered on 01/17/19at 09:59; A dmin Dose 5 MG; Start 01/10/19 at 09:00 Metoprolol Tartrate (Lopressor) 50 mg BID PO Last administered on 01/17/19at 09:59; Admin Dose 50 MG; Start 01/10/19 at 09:00 Pantoprazole (Protonix Tab) 40 mg AC BREAKFAST PO Last administered on 01/17/19 06:09; Admin Dose 40 MG; Start 01/10/19 at 07:00 Diltiazem HCl (Cardizem Cd) 120 mg DAILY PO Last administered on 01/17/19 09:58; Admin Dose 120 MG; Start 01/10/19 at 09:00 Miscellaneous Information (Pending Santyl Order For Wound Care) This patient sawyer... PRN PRN XX WOUND CARE; Start 01/10/19 at 07:30 Levalbuterol (Xopenex Neb) 0.63 mg Q6H RESP THERAPY HHN Last administered on 01/17/19 07:44; Admin Dose 0.63 MG; Start 01/10/19 at 14:00 Prednisone (Prednisone) 5 mg DAILY PO Last administered on 01/17/19 09:59; Admin Dose 5 MG; Start 01/11/19 at 09:00 Prednisone (Prednisone) 2 mg DAILY PO Last administered on 01/17/19 09:59; Admin Dose 2 MG; Start 01/11/19 at 09:00 Fluticasone/ Vilanterol (Breo Ellipta 200-25 Mcg Inh) 1 inh DAILY INH Last administered on 01/17/19 10:04; Admin Dose 1 INH; Start 01/11/19 at 09:00 Tiotropium [place] (Spiriva) 1 inh DAILY INH Last administered on 01/17/19 09:00; Admin Dose 1 INH; Start 01/11/19 at 09:00 Vancomycin HCl (Vanco Iv Per Pharmacy) VANCOMYCIN PER PHARMACY PER PROTOCOL XX ; Start 01/10/19 at 18:00 Guaifenesin (Mucinex) 600 mg BID PO Last administered on 01/17/19 09:59; Admin Dose 600 MG; Start 01/12/19 at 09:00 Acetylcysteine (Mucomyst) 2 ml Q6H RESP THERAPY NEB Last administered on 01/17/19 07:45; Admin Dose 2 ML; Start 01/12/19 at 02:00 Meropenem/Sodium Chloride 50 ml @ 100 mls/hr Q12 IVPB Last administered on 01/17/19 10:05; Admin Dose 100 MLS/HR; Start 01/12/19 at 17:00 Moxifloxacin HCl (Vigamox) 1 drop TID BOTH EYES Last administered on 01/17/19 12:57; Admin Dose 1 DROP; Start 01/12/19 at 21:00 Diazepam (Valium) 2 mg HS PRN PO for agitation, pulling on line Last administered on 01/14/19 21:29; Admin Dose 2 MG; Start 01/14/19 at 17:30 Mupirocin (Bactroban) 1 applic BID TOP Last administered on 01/17/19 10:02; Admin Dose 1 APPLIC; Start 01/16/19 at 09:00 Bupropion HCl (Wellbutrin Sr) 100 mg BID PO Last administered on 01/17/19 09:58; Admin Dose 100 MG; Start 01/16/19 at 09:00 Vancomycin/Sodium Chloride 250 ml @ 125 mls/hr Q36H IVPB ; Start 01/17/19 at 15:00 Escitalopram Oxalate (Lexapro) 5 mg DAILY PO Last administered on 01/17/19 09:56; Admin Dose 5 MG; Start 01/17/19 at 09:00 BREEZY FRIAS MD Jan 17, 2019 13:26
[2019-01-17] MEDS: VANCOMYCIN 750 MG (PMX) 250 ML IVPB SCH (14:55)
[2019-01-18] VITALS (10 sets, daily range): BP systolic 106–132; BP diastolic 53–64; PULSE 56–68; RESP 18–20
[2019-01-18] MEDS: ACETYLCYSTEINE 20% 4 ML VIAL NEB SCH ×4 (01:55→20:20)
[2019-01-18] MEDS: LEVALBUTEROL (NEB) 0.63 MG/3 ML AMP HHN SCH ×4 (01:55→20:20)
[2019-01-18] MEDS: PANTOPRAZOLE (EC) 40 MG TAB PO SCH (06:27)
--- NOTE | 2019-01-18 06:32 | CONS ---
Assessment/Plan Assessment/Plan Hospital Course (Demo Recall) 1) MRSA bacteremia unclear source repeat blood cx now no significant microscopic hematuria noted, will check RF in a.m. will order 2d echo, to be read by Dr. Robbins continue with vanco pt has a recent hx of DVT to LLE and he may need WBC scan to r/o infected clot but will order joel doppler to see if it is still there no open wounds other than the colostomy and ileostomy but nurse reports no redness to the sites pt has a cough and some haziness at L base but unable to get sputum cx, nasal cx is pending 01/14 - sputum cx was obtained and has normal respiratory marely, nasal is positive for MRSA repeat blood cx are NGTD clot still present in LLE but not larger, will order WBC scan to see if chicken picker noted to clot area 2d echo was done but results are pending final length of IV vanco to be determined by WBC scan results, repeat blood cx and echo results but at least for 2 weeks 01/15 - 2d echo did not show obvious vegetations, sputum cx did eventually grow MRSA likely the bacteremia comes via the lung RF was neg continue with vanco thru 01/23/19 (two week course) 01/16 - stable on vanco/merrem decrease in platelets has bounced back, so can continue with vanco thru 01/23 and merrem thru 01/[address] abd/pelv due to mild uptake to R pelvic area 01/17 - nothing of import seen at RLQ on abd/pelv CT but L kidney complex cyst vs mass is noted pt finishes merrem after 01/18 doses continue vanco thru 01/23 2) bacteriuria with mild-mod pyuria due to pseudomonas and e.coli +ESBL continue with merrem at present 01/14 - continue merrem for a total of 7 days 01/15 - continue merrem thru 01/18/1901/18 - d/c merrem after today's doses 3)AMS pt is lethargic was apparently speaking upon admission likely due to metabolic encephalopathy check ammonia level in a.m. 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 6) recent DVT L calf is enlarged, to get venous doppler of area and if clot still present will order WBC to r/o infected clot 01/14 - no change in clot size on repeat venous doppler I will order WBC scan to see if there is possible infected clot, but I think it is low likelihood 01/15 - doubt DVT is infected, await WBC scan 01/16 - no sign on infected clot on WBC scan will order CT abd/pelv to verify no issue to R pelvic area as seen on WBC scan 7) LUE phlebitis this is likely due to a prior IV site to that area and became present after admission most likely 01/14 - improved Consultation Date/Type/Reason Admit Date/Time Jan 10, 2019 at 11:21 Initial Consult Date 01/13/19 Type of Consult ID Date/Time of Note DATE: 01/18/19 TIME: 06:27 24 HR Interval Summary Free Text/Dictation spoke to nurse some confusion/agitation but overall better no V, D breathing is ok, no coughing heard by nurse Exam/Review of Systems Exam Vitals Vital Signs Date Temp Pulse Resp B/P (MAP) Pulse Ox O2 O2 Flow FiO2 Time Delivery Rate 01/18/19 59 04:00 01/18/19 98.5 18 120/58 96 03:50 (78) 01/18/19 Nasal 2.0 01:55 Cannula Intake and Output 01/17/19 01/17/19 01/18/19 1515:00 23:00 07:00 IntakeIntake Total 50 ml 630 ml OutputOutput Total 800 ml BalanceBalance 50 ml -170 ml Constitutional: alert ENMT: mucosa pink and moist Respiratory: clear to auscultation Cardiovascular: regular rate and rhythm Gastrointestinal: soft, non-tender Results Result Diagram: 01/16/1962001/17/19 06 Medications Medication Current Medications IV Flush (NS 3 ml) 3 ml PER PROTOCOL IV ; Start 01/09/19 at 21:30 Ondansetron HCl (Zofran Inj) 4 mg Q6H PRN IV NAUSEA/VOMITING; Start 01/09/19 at 21:30 Clonidine (Catapres) 0.1 mg TID PRN PO sbp >170; Start 01/09/19 at 22:00 Acetaminophen (Tylenol Tab) 650 mg TID PRN PO MILD PAIN(1-3)OR ELEVATED TEMP; Start 01/09/19 at 22:00 Apixaban (Eliquis) 5 mg BID PO Last administered on 01/17/19 21:12; Admin Dose 5 MG; Start 01/10/19 at 09:00 Aripiprazole (Abilify) 5 mg DAILY PO Last administered on 01/17/19 09:59; Admin Dose 5 MG; Start 01/10/19 at 09:00 Metoprolol Tartrate (Lopressor) 50 mg BID PO Last administered on 01/17/19 21:12; Admin Dose 50 MG; Start 01/10/19 at 09:00 Pantoprazole (Protonix Tab) 40 mg AC BREAKFAST PO Last administered on 01/17/19 06:09; Admin Dose 40 MG; Start 01/10/19 at 07:00 Diltiazem HCl (Cardizem Cd) 120 mg DAILY PO Last administered on 01/17/19 09:58; Admin Dose 120 MG; Start 01/10/19 at 09:00 [facility] This patient sawyer... PRN PRN XX WOUND CARE; Start 01/10/19 at 07:30 Levalbuterol (Xopenex Neb) 0.63 mg Q6H RESP THERAPY HHN Last administered on 01/18/19 01:55; Admin Dose 0.63 MG; Start 01/10/19 at 14:00 Prednisone (Prednisone) 5 mg DAILY PO Last administered on 01/17/19 09:59; Admin Dose 5 MG; Start 01/11/19 at 09:00 Fluticasone/ Vilanterol (Breo Ellipta 200-25 Mcg Inh) 1 inh DAILY INH Last ad ministered on 01/17/19 10:04; Admin Dose 1 INH; Start 01/11/19 at 09:00 Tiotropium [place] (Spiriva) 1 inh DAILY INH Last administered on 01/17/19 09:00; Admin Dose 1 INH; Start 01/11/19 at 09:00 Vancomycin HCl (Vanco Iv Per Pharmacy) VANCOMYCIN PER PHARMACY PER PROTOCOL XX ; Start 01/10/19 at 18:00 Guaifenesin (Mucinex) 600 mg BID PO Last administered on 01/17/19 21:12; Admin Dose 600 MG; Start 01/12/19 at 09:00 Acetylcysteine (Mucomyst) 2 ml Q6H RESP THERAPY NEB Last administered on 12/28 01:55; Admin Dose 2 ML; Start 01/12/19 at 02:00 Meropenem/Sodium Chloride 50 ml @ 100 mls/hr Q12 IVPB Last administered on 01/17/19 21:12; Admin Dose 100 MLS/HR; Start 01/12/19 at 17:00 Diazepam (Valium) 2 mg HS PRN PO for agitation, pulling on line Last administered on 01/14/19 21:29; Admin Dose 2 MG; Start 01/14/19 at 17:30 Mupirocin (Bactroban) 1 applic BID TOP Last administered on 01/17/19 21:13; Admin Dose 1 APPLIC; Start 01/16/19 at 09:00 Bupropion HCl (Wellbutrin Sr) 100 mg BID PO Last administered on 01/17/19 21:12; Admin Dose 100 MG; Start 01/16/19 at 09:00 Vancomycin/Sodium Chloride 250 ml @ 125 mls/hr Q36H IVPB Last administered on 01/17/19 14:55; Admin Dose 125 MLS/HR; Start 01/17/19 at 15:00 Escitalopram Oxalate (Lexapro) 5 mg DAILY PO Last administered on 01/17/19 09:56; Admin Dose 5 MG; Start 01/17/19 at 09:00 MIGUELITO VASQUEZ MD Jan 18, 2019 06:32
[2019-01-18] MEDS: MEROPENEM 1 GM/50ML(PMX) 50 ML IVPB SCH ×2 (09:30→21:11)
[2019-01-18] MEDS: predniSONE 5 MG TAB PO SCH (09:31)
[2019-01-18] MEDS: FLUTICASONE/VILANTEROL 200-25 INH DEVICE INH SCH (09:31)
[2019-01-18] MEDS: ARIPIPRAZOLE 5 MG TAB PO SCH (09:31)
[2019-01-18] MEDS: BUPROPION (SR) 100 MG TAB PO SCH ×2 (09:31→21:11)
[2019-01-18] MEDS: APIXABAN 5 MG TABLET PO SCH ×2 (09:31→21:11)
[2019-01-18] MEDS: GUAIFENESIN LA 600 MG TABSR PO SCH ×2 (09:31→21:11)
[2019-01-18] MEDS: TIOTROPIUM 18 MCG CAPSULE INHA DEV INH SCH (09:31)
[2019-01-18] MEDS: DILTIAZEM (CD) 120 MG CAP PO SCH (09:32)
[2019-01-18] MEDS: ESCITALOPRAM 10 MG TAB PO SCH (09:32)
[2019-01-18] MEDS: METOPROLOL 50 MG TAB PO SCH ×2 (09:33→21:12)
[2019-01-18] MEDS: BALSAM PERU/CASTOR OIL 60 GM TUBE TOP SCH (09:33)
[2019-01-18] MEDS: MUPIROCIN 2% 22 GM OINT TOP SCH ×2 (09:34→21:12)
[2019-01-18] MEDS ORDERED: IOHEXOL 14.3 MG(I)/ML (ADULT) BTL PO ONE (23:00)
[2019-01-19] VITALS (12 sets, daily range): BP systolic 103–135; BP diastolic 52–62; PULSE 54–69; RESP 16–22
--- NOTE | 2019-01-19 00:33 | PN ---
DATE: 01/18/2019 SUBJECTIVE: The patient is sleeping comfortably in bed. OBJECTIVE: VITAL SIGNS: Temperature 97.4, pulse 67, respirations 20, blood pressure 106/64, oxygen saturation 9 2% on nasal cannula oxygen. GENERAL: Well-developed male in no acute distress, lying in bed. CHEST: Slight decreased breath sounds in the bases, scant upper airway secretions, otherwise clear. HEART: Regular rate and rhythm. ABDOMEN: Soft, nontender. EXTREMITIES: Trace edema, scattered ecchymoses and purpuric lesions in the extremities. LABORATORY DATA: Stool occult blood x1 is negative. Sodium 143, potassium 4.4, chloride 110, bicarb tamara 29, BUN of 31, creatinine 1.44, glucose 83. Iron 28, TIBC of 225, iron saturation is 12. Prea lbumin of 21.7, hemoglobin of 8.1, hematocrit 26.9, platelets 146. White blood cell count 9.7. ASSESSMENT AND PLAN: 1. Anemia, worse. We will continue to monitor. The patient is OB negative x1 thus far, but does sawyer ve low iron levels. Could be anemia secondary to chronic disease. The patient has had bleeding in t he past and has a history of colon cancer. We will continue to monitor her, no need for transfusion at this time. 2. Urinary tract infection. The patient to have meropenem discontinued as of today. Continue to mo nitor. The patient does have a possible renal mass by abdominopelvic CT scan. We will order a renal CT scan with contrast in order to evaluate further. 3. Encephalopathy, improved. Continue to monitor, likely a toxic metabolic encephalopathy due to in fection. 4. Bacteremia. The patient is improved, and repeat blood cultures are negative to date. We will co ntinue the vancomycin for a total 2 weeks, ending on 01/23/2019 and Bactroban to the nares. 5. Chronic obstructive pulmonary disease, stable. Continue his current medications and decrease off prednisone. We will do a slow taper at the end of his dosing. 6. GERD with esophagitis, stable. Continue with medications and bed elevation. 7. Deep venous thrombosis, stable. Continue his Eliquis. 8. Paroxysmal atrial fibrillation, stable. The patient on telemetry with no AFib at this time. Raymond capo continue to monitor. Dictated By: TAQUERIA BANKS MD SR/NTS Conf#: [id number] [facility]#: [id number]
[2019-01-19] MEDS: LEVALBUTEROL (NEB) 0.63 MG/3 ML AMP HHN SCH ×4 (01:56→20:40)
[2019-01-19] MEDS: ACETYLCYSTEINE 20% 4 ML VIAL NEB SCH ×4 (01:57→20:39)
[2019-01-19] MEDS: VANCOMYCIN 750 MG (PMX) 250 ML IVPB SCH (03:54)
[2019-01-19] MEDS: PANTOPRAZOLE (EC) 40 MG TAB PO SCH (07:53)
[2019-01-19] MEDS: BUPROPION (SR) 100 MG TAB PO SCH ×2 (08:20→21:07)
[2019-01-19] MEDS: GUAIFENESIN LA 600 MG TABSR PO SCH ×2 (08:20→21:07)
[2019-01-19] MEDS: BALSAM PERU/CASTOR OIL 60 GM TUBE TOP SCH (08:20)
[2019-01-19] MEDS: MUPIROCIN 2% 22 GM OINT TOP SCH ×2 (08:20→21:06)
[2019-01-19] MEDS: ARIPIPRAZOLE 5 MG TAB PO SCH (08:20)
[2019-01-19] MEDS: APIXABAN 5 MG TABLET PO SCH ×2 (08:20→21:07)
[2019-01-19] MEDS: predniSONE 5 MG TAB PO SCH (08:20)
[2019-01-19] MEDS: ESCITALOPRAM 10 MG TAB PO SCH (08:21)
[2019-01-19] MEDS: TIOTROPIUM 18 MCG CAPSULE INHA DEV INH SCH (08:22)
[2019-01-19] MEDS: FLUTICASONE/VILANTEROL 200-25 INH DEVICE INH SCH (08:22)
[2019-01-19] MEDS: METOPROLOL 50 MG TAB PO SCH ×2 (08:22→21:07)
[2019-01-19] MEDS: DILTIAZEM (CD) 120 MG CAP PO SCH (08:24)
[2019-01-19] MEDS ORDERED: IOHEXOL 0 ML ONE (08:40)
[2019-01-19] MEDS ORDERED: SOD CHLORIDE 0.9% 100 ML ONE (08:40)
[2019-01-19] MEDS ORDERED: IOHEXOL 300MG/ML 150 ML BTL ONE (09:46)
[2019-01-19] MEDS ORDERED: MAGNESIUM SULFATE 3 GM in DEXTROSE 5% 100 ML IVPB ONE (10:00)
[2019-01-20] VITALS (11 sets, daily range): BP systolic 95–124; BP diastolic 50–60; PULSE 52–62; RESP 16–18
--- NOTE | 2019-01-20 00:12 | PN ---
DATE: 01/19/2019 SUBJECTIVE: The patient without complaint. OBJECTIVE: VITAL SIGNS: Temperature 98.1, pulse 60, respirations 20, blood pressure 109/53, oxygen saturation 9 8% on 2-liter nasal cannula oxygen. I's and O's 1650 and 2200 out, negative balance 550. CHEST: Scant crackles, rhonchi that decreased with cough; otherwise, clear. HEART: Regular rate and rhythm. ABDOMEN: Soft, nontender. Colostomy draining, ileostomy draining. Positive bowel sounds. EXTREMITIES: Trace edema. SKIN: Numerous ecchymoses and purpuric lesions on the extremities. LABORATORY AND DIAGNOSTIC DATA: White blood cell count 10.6, hemoglobin 8.2, hematocrit 27.7, platel ets 158,000. Sodium 146, potassium 4.5, chloride 106, bicarbonate 28, BUN 40, creatinine 1.22, gluco se 87, magnesium 1.2. Brain natriuretic peptide 1880. Calcium 9.4. Abdominal CT scan with and with out contrast shows questionable cluster hyperdense cyst versus mildly contrast-enhancing solid mass l ower pole of the left kidney. Followup CT scan should be performed in 4 months to ensure stability. Multiple right renal cysts, no further workup required. Basilar atelectasis with small effusions. ASSESSMENT AND PLAN: 1. Anemia, stable. Continue to monitor. No need for transfusion. We will continue to monitor. 2. Urinary tract infection, stable, status post antibiotics. No further meropenem needed at this ti me. The patient's renal mass is evaluated by CT scan and no definitive suspicious masses found but r ecommendations for repeat CT scan in 4 months to ensure stability. 3. Encephalopathy, improved. Continue to monitor. Likely related to infection and medications. No further workup needed. 4. Bacteremia. This is stable on antibiotics. Repeat blood cultures have been negative to date. W e will continue the antibiotics, finishing on 01/23/2019. 5. Chronic obstructive pulmonary disease, stable. Continue with medications and taper off prednison e. 6. Gastroesophageal reflux disease with esophagitis, stable. Continue with medications and bed elev ation. 7. Deep venous thrombosis, stable. Continue Eliquis. 8. Paroxysmal atrial fibrillation, stable. Continue with monitoring and medications. No further ad dressing is needed at this time. Dictated By: TAQUERIA BANKS MD SR/NTS Conf#: [id number] DID#: [id number] CC: NIKKY HENDRICKS MD;*[facility]*
[2019-01-20] MEDS: LEVALBUTEROL (NEB) 0.63 MG/3 ML AMP HHN SCH ×4 (02:36→20:56)
[2019-01-20] MEDS: ACETYLCYSTEINE 20% 4 ML VIAL NEB SCH ×4 (02:36→20:56)
--- NOTE | 2019-01-20 06:49 | CONS ---
Assessment/Plan Assessment/Plan Hospital Course (Demo Recall) 1) MRSA bacteremia unclear source repeat blood cx now no significant microscopic hematuria noted, will check RF in a.m. will order 2d echo, to be read by Dr. Robbins continue with vanco pt has a recent hx of DVT to LLE and he may need WBC scan to r/o infected clot but will order joel doppler to see if it is still there no open wounds other than the colostomy and ileostomy but nurse reports no redness to the sites pt has a cough and some haziness at L base but unable to get sputum cx, nasal cx is pending 01/14 - sputum cx was obtained and has normal respiratory marely, nasal is positive for MRSA repeat blood cx are NGTD clot still present in LLE but not larger, will order WBC scan to see if case picker noted to clot area 2d echo was done but results are pending final length of IV vanco to be determined by WBC scan results, repeat blood cx and echo results but at least for 2 weeks 01/15 - 2d echo did not show obvious vegetations, sputum cx did eventually grow MRSA likely the bacteremia comes via the lung RF was neg continue with vanco thru 01/23/19 (two week course) 01/16 - stable on vanco/merrem decrease in platelets has bounced back, so can continue with vanco thru 01/23 and merrem thru 01/[address] abd/pelv due to mild uptake to R pelvic area 01/17 - nothing of import seen at RLQ on abd/pelv CT but L kidney complex cyst vs mass is noted pt finishes merrem after 01/18 doses continue vanco thru 01/23 01/20 - continue vanco thru 01/23 no new recommendations, will sign off creatinine was improved yesterday 2) bacteriuria with mild-mod pyuria due to pseudomonas and e.coli +ESBL continue with merrem at present 01/14 - continue merrem for a total of 7 days 01/15 - continue merrem thru 01/18/1901/18 - d/c merrem after today's doses 01/20 - off merrem, no new problems 3)AMS pt is lethargic was apparently speaking upon admission likely due to metabolic encephalopathy check ammonia level in a.m. 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 6) recent DVT L calf is enlarged, to get venous doppler of area and if clot still present will order WBC to r/o infected clot 01/14 - no change in clot size on repeat venous doppler I will order WBC scan to see if there is possible infected clot, but I think it is low likelihood 01/15 - doubt DVT is infected, await WBC scan 01/16 - no sign on infected clot on WBC scan will order CT abd/pelv to verify no issue to R pelvic area as seen on WBC scan 7) LUE phlebitis this is likely due to a prior IV site to that area and became present after admission most likely 01/14 - improved 01/20 - resolved Consultation Date/Type/Reason Admit Date/Time Jan 10, 2019 at 11:21 Initial Consult Date 01/13/19 Type of Consult ID Date/Time of Note DATE: 01/20/19 TIME: 06:46 24 HR Interval Summary Free Text/Dictation pt is stable no N, V pt states breathing is ok, occasional cough Exam/Review of Systems Exam Vitals Vital Signs Date Temp Pulse Resp B/P (MAP) Pulse Ox O2 O2 Flow FiO2 Time Delivery Rate 01/20/19 58 04:01 01/20/19 98.8 16 112/50 99 03:20 (70) 01/20/19 Nasal 2.0 02:37 Cannula 01/18/19 21 20:20 Intake and Output 01/19/19 01/19/19 01/20/19 1414:59 22:59 06:59 IntakeIntake Total 1006 ml 300 ml OutputOutput Total 500 ml 400 ml BalanceBalance 506 ml -100 ml Constitutional: alert Eyes: nl sclera ENMT: mucosa pink and moist Respiratory: clear to auscultation Cardiovascular: regular rate and rhythm Gastrointestinal: soft, non-tender Results Result Diagram: 01/19/19 0601/19/19 06 Medications Medication Current Medications IV Flush (NS 3 ml) 3 ml PER PROTOCOL IV ; Start 01/09/19 at 21:30 Ondansetron HCl (Zofran Inj) 4 mg Q6H PRN IV NAUSEA/VOMITING; Start 01/09/19 at 21:30 Clonidine (Catapres) 0.1 mg TID PRN PO sbp >170; Start 01/09/19 at 22:00 Acetaminophen (Tylenol Tab) 650 mg TID PRN PO MILD PAIN(1-3)OR ELEVATED TEMP; Start 01/09/19 at 22:00 Apixaban (Eliquis) 5 mg BID PO Last administered on 01/19/19 21:07; Admin Dose 5 MG; Start 01/10/19 at 09:00 Aripiprazole (Abilify) 5 mg DAILY PO Last administered on 01/19/19 08:20; Admin Dose 5 MG; Start 01/10/19 at 09:00 Metoprolol Tartrate (Lopressor) 50 mg BID PO Last administered on 01/19/19 21:07; Admin Dose 50 MG; Start 01/10/19 at 09:00 Pantoprazole (Protonix Tab) 40 mg AC BREAKFAST PO Last administered on 01/19/19 07:53; Admin Dose 40 MG; Start 01/10/19 at 07:00 Diltiazem HCl (Cardizem Cd) 120 mg DAILY PO Last administered on 01/19/19 08:24; Admin Dose 120 MG; Start 01/10/19 at 09:00 Miscellaneous Information (Pending [facility] Order For Wound Care) This patient sawyer... PRN PRN XX WOUND CARE; Start 01/10/19 at 07:30 Levalbuterol (Xopenex Neb) 0.63 mg Q6H RESP THERAPY HHN Last administered on 01/20/19 02:36; Admin Dose 0.63 MG; Start 01/10/19 at 14:00 Prednisone (Prednisone) 5 mg DAILY PO Last administered on 01/19/19 08:20; Admin Dose 5 MG; Start 01/11/19 at 09:00 Fluticasone/ Vilanterol (Breo Ellipta 200-25 Mcg Inh) 1 inh DAILY INH Last administered on 01/19/19 08:22; Admin Dose 1 INH; Start 01/11/19 at 09:00 Tiotropium [place] (Spiriva) 1 inh DAILY INH Last administered on 01/19/19 08:22; Admin Dose 1 INH; Start 01/11/19 at 09:00 Vancomycin HCl (Vanco Iv Per Pharmacy) VANCOMYCIN PER PHARMACY PER PROTOCOL XX ; Start 01/10/19 at 18:00 Guaifenesin (Mucinex) 600 mg BID PO Last administered on 01/19/19 21:07; Admin Dose 600 MG; Start 01/12/19 at 09:00 Acetylcysteine (Mucomyst) 2 ml Q6H RESP THERAPY NEB Last administered on 01/20/19 02:36; Admin Dose 2 ML; Start 01/12/19 at 02:00 Diazepam (Valium) 2 mg HS PRN PO for agitation, pulling on line Last administered on 01/14/19 21:29; Admin Dose 2 MG; Start 01/14/19 at 17:30 Mupirocin (Bactroban) 1 applic BID TOP Last administered on 01/19/19 21:06; Admin Dose 1 APPLIC; Start 01/16/19 at 09:00 Bupropion HCl (Wellbutrin Sr) 100 mg BID PO Last administered on 01/19/19 21:07; Admin Dose 100 MG; Start 01/16/19 at 09:00 Vancomycin/Sodium Chloride 250 ml @ 125 mls/hr Q36H IVPB Last administered on 01/19/19 03:54; Admin Dose 125 MLS/HR; Start 01/17/19 at 15:00 Escitalopram Oxalate (Lexapro) 5 mg DAILY PO Last administered on 01/19/19 08:21; Admin Dose 5 MG; Start 01/17/19 at 09:00 Miscellaneous Information (*Rx Drug Level Order Reminder*) VANCOMYCIN TROUGH AT 1400 ONCE ONCE XX ; Start 01/20/19 at 14:00; Stop 01/20/19 at 14:01 MIGUELITO VASQUEZ MD Jan 20, 2019 06:48
[2019-01-20] MEDS: TIOTROPIUM 18 MCG CAPSULE INHA DEV INH SCH (08:22)
[2019-01-20] MEDS: MUPIROCIN 2% 22 GM OINT TOP SCH ×2 (08:55→21:19)
[2019-01-20] MEDS: APIXABAN 5 MG TABLET PO SCH ×2 (08:55→21:18)
[2019-01-20] MEDS: PANTOPRAZOLE (EC) 40 MG TAB PO SCH (08:55)
[2019-01-20] MEDS: FLUTICASONE/VILANTEROL 200-25 INH DEVICE INH SCH (08:55)
[2019-01-20] MEDS: METOPROLOL 50 MG TAB PO SCH ×2 (08:57→21:23)
[2019-01-20] MEDS: ARIPIPRAZOLE 5 MG TAB PO SCH (08:57)
[2019-01-20] MEDS: predniSONE 5 MG TAB PO SCH (08:57)
[2019-01-20] MEDS: ESCITALOPRAM 10 MG TAB PO SCH (08:58)
[2019-01-20] MEDS: BUPROPION (SR) 100 MG TAB PO SCH ×2 (08:58→21:18)
[2019-01-20] MEDS: DILTIAZEM (CD) 120 MG CAP PO SCH (08:58)
[2019-01-20] MEDS: GUAIFENESIN LA 600 MG TABSR PO SCH ×2 (08:58→21:18)
[2019-01-20] MEDS: BALSAM PERU/CASTOR OIL 60 GM TUBE TOP SCH (08:59)
--- NOTE | 2019-01-20 16:01 | PN ---
Date/Time of Note Date/Time of Note DATE: 01/20/19 TIME: 16:01 Assessment/Plan VTE Prophylaxis Risk score (from [facility] [place])>0 risk: 6 SCD applied (from [facility] [place]): No SCD contraindicated: DVT Pharmacological prophylaxis: NA/contraindicated Pharm contraindication: bleeding Lines/Catheters [facility] Mid Line Central line still needed: No Urinary Cath still in place: No Assessment/Plan Assessment/Plan 1. bacteremia/ uti/ conjunctivitis 2. a fib/ dvt 3. anemia 4. copd 5. depression/ dementia/ dec activity/ less eating ---per ID ---cont atbx ---must assist eating ---spoke w/ re: rehab strengthening prior going home Result Diagram: 01/20/1962601/20/19 06 Results 24hrs Laboratory Tests Test 01/20/19 06:27 01/20/19 14:28 White Blood Count 9.0 Red Blood Count 2.92 L Hemoglobin 8.2 L Hematocrit 28.4 L Mean Corpuscular Volume 97.3 Mean Corpuscular Hemoglobin 28.1 L Mean Corpuscular Hemoglobin Concent 28.9 L Red Cell Distribution Width 16.7 H Platelet Count 112 #L Mean Platelet Volume 12.1 H Immature Granulocytes % 0.400 Neutrophils % 72.0 Lymphocytes % 14.4 L Monocytes % 10.7 Eosinophils % 2.2 Basophils % 0.3 Nucleated Red Blood Cells % 0.2 H Immature Granulocytes # 0.040 H Neutrophils # 6.5 Lymphocytes # 1.3 Monocytes # 1.0 H Eosinophils # 0.2 Basophils # 0.0 Nucleated Red Blood Cells # 0.0 Sodium Level 143 Potassium Level 4.7 Chloride Level 111 H Carbon Dioxide Level 22 Anion Gap 10 Blood Urea Nitrogen 38 H Creatinine 1.02 Est Glomerular Filtrat Rate mL/min Glucose Level 79 Calcium Level 9.4 Magnesium Level 2.1 B-Type Natriuretic Peptide 1840 H Vancomycin Level Trough 12.6 Subjective 24 Hr Interval Summary Free Text/Dictation in bed, sleeping Exam/Review of Systems Exam Vitals Vital Signs Date Temp Pulse Resp B/P (MAP) Pulse Ox O2 O2 Flow FiO2 Time Delivery Rate 01/20/19 98.1 56 18 124/60 97 Room Air 15:28 (81) 01/20/19 2.0 13:18 01/18/19 21 20:20 Intake and Output 01/19/19 01/19/19 01/20/19 1515:00 23:00 07:00 IntakeIntake Total 106 ml 900 ml 300 ml OutputOutput Total 500 ml 400 ml BalanceBalance 106 ml 400 ml -100 ml Exam pale, +1 pit edema, irreg irreg, dec bs bibasilar, Results Results 24hrs Laboratory Tests Test 01/20/19 06:27 01/20/19 14:28 White Blood Count 9.0 Red Blood Count 2.92 L Hemoglobin 8.2 L Hematocrit 28.4 L Mean Corpuscular Volume 97.3 Mean Corpuscular Hemoglobin 28.1 L Mean Corpuscular Hemoglobin Concent 28.9 L Red Cell Distribution Width 16.7 H Platelet Count 112 #L Mean Platelet Volume 12.1 H Immature Granulocytes % 0.400 Neutrophils % 72.0 Lymphocytes % 14.4 L Monocytes % 10.7 Eosinophils % 2.2 Basophils % 0.3 Nucleated Red Blood Cells % 0.2 H Immature Granulocytes # 0.040 H Neutrophils # 6.5 Lymphocytes # 1.3 Monocytes # 1.0 H Eosinophils # 0.2 Basophils # 0.0 Nucleated Red Blood Cells # 0.0 Sodium Level 143 Potassium Level 4.7 Chloride Level 111 H Carbon Dioxide Level 22 Anion Gap 10 Blood Urea Nitrogen 38 H Creatinine 1.02 Est Glomerular Filtrat Rate mL/min Glucose Level 79 Calcium Level 9.4 Magnesium Level 2.1 B-Type Natriuretic Peptide 1840 H Vancomycin Level Trough 12.6 Medications Medication Current Medications IV Flush (NS 3 ml) 3 ml PER PROTOCOL IV ; Start 01/09/19 at 21:30 Ondansetron HCl (Zofran Inj) 4 mg Q6H PRN IV NAUSEA/VOMITING; Start 01/09/19 at 21:30 Clonidine (Catapres) 0.1 mg TID PRN PO sbp >170; Start 01/09/19 at 22:00 Acetaminophen (Tylenol Tab) 650 mg TID PRN PO MILD PAIN(1-3)OR ELEVATED TEMP; Start 01/09/19 at 22:00 Apixaban (Eliquis) 5 mg BID PO Last administered on 01/20/19at 08:55; Admin Dose 5 MG; Start 01/10/19 at 09:00 Aripiprazole (Abilify) 5 mg DAILY PO Last administered on 01/20/19 08:57; Admin Dose 5 MG; Start 01/10/19 at 09:00 Metoprolol Tartrate (Lopressor) 50 mg BID PO Last administered on 01/20/19 08:57; Admin Dose 50 MG; Start 01/10/19 at 09:00 Pantoprazole (Protonix Tab) 40 mg AC BREAKFAST PO Last administered on 01/20/19 08:55; Admin Dose 40 MG; Start 01/10/19 at 07:00 Diltiazem HCl (Cardizem Cd) 120 mg DAILY PO Last administered on 01/20/19 08:58; Admin Dose 120 MG; Start 01/10/19 at 09:00 [facility] This patient sawyer... PRN PRN XX WOUND CARE; Start 01/10/19 at 07:30 Levalbuterol (Xopenex Neb) 0.63 mg Q6H RESP THERAPY HHN Last administered on 01/20/19 08:23; Admin Dose 0.63 MG; Start 01/10/19 at 14:00 Prednisone (Prednisone) 5 mg DAILY PO Last administered on 01/20/19 08:57; Admin Dose 5 MG; Start 01/11/19 at 09:00 Fluticasone/ Vilanterol (Breo Ellipta 200-25 Mcg Inh) 1 inh DAILY INH Last administered on 01/20/19 08:55; Admin Dose 1 INH; Start 01/11/19 at 09:00 Tiotropium [place] (Spiriva) 1 inh DAILY INH Last administered on 01/20/19 08:22; Admin Dose 1 INH; Start 01/11/19 at 09:00 Vancomycin HCl (Vanco Iv Per Pharmacy) VANCOMYCIN PER PHARMACY PER PROTOCOL XX ; Start 01/10/19 at 18:00 Guaifenesin (Mucinex) 600 mg BID PO Last administered on 01/20/19 08:58; Admin Dose 600 MG; Start 01/12/19 at 09:00 Acetylcysteine (Mucomyst) 2 ml Q6H RESP THERAPY NEB Last administered on 01/20/19 08:23; Admin Dose 2 ML; Start 01/12/19 at 02:00 Diazepam (Valium) 2 mg HS PRN PO for agitation, pulling on line Last administered on 01/14/19 21:29; Admin Dose 2 MG; Start 01/14/19 at 17:30 Mupirocin (Bactroban) 1 applic BID TOP Last administered on 01/20/19 08:55; Admin Dose 1 APPLIC; Start 01/16/19 at 09:00 Bupropion HCl (Wellbutrin Sr) 100 mg BID PO Last administered on 01/20/19 08:58; Admin Dose 100 MG; Start 01/16/19 at 09:00 Vancomycin/Sodium Chloride 250 ml @ 125 mls/hr Q36H IVPB Last administered on 01/19/19 03:54; Admin Dose 125 MLS/HR; Start 01/17/19 at 15:00 Escitalopram Oxalate (Lexapro) 5 mg DAILY PO Last administered on 01/20/19 08:58; Admin Dose 5 MG; Start 01/17/19 at 09:00 ARNOLD TAM MD Jan 20, 2019 16:01
[2019-01-20] MEDS: VANCOMYCIN 750 MG (PMX) 250 ML IVPB SCH (16:13)
[2019-01-21] VITALS (11 sets, daily range): BP systolic 97–111; BP diastolic 52–64; PULSE 56–82; RESP 17–20
[2019-01-21] MEDS: LEVALBUTEROL (NEB) 0.63 MG/3 ML AMP HHN SCH ×4 (01:51→20:27)
[2019-01-21] MEDS: ACETYLCYSTEINE 20% 4 ML VIAL NEB SCH ×4 (01:51→20:27)
[2019-01-21] MEDS: PANTOPRAZOLE (EC) 40 MG TAB PO SCH (06:52)
[2019-01-21] MEDS: TIOTROPIUM 18 MCG CAPSULE INHA DEV INH SCH (09:00)
[2019-01-21] MEDS: ESCITALOPRAM 10 MG TAB PO SCH (09:42)
[2019-01-21] MEDS: predniSONE 5 MG TAB PO SCH (09:42)
[2019-01-21] MEDS: BUPROPION (SR) 100 MG TAB PO SCH ×2 (09:42→21:27)
[2019-01-21] MEDS: ARIPIPRAZOLE 5 MG TAB PO SCH (09:42)
[2019-01-21] MEDS: DILTIAZEM (CD) 120 MG CAP PO SCH (09:43)
[2019-01-21] MEDS: APIXABAN 5 MG TABLET PO SCH ×2 (09:44→21:14)
[2019-01-21] MEDS: GUAIFENESIN LA 600 MG TABSR PO SCH ×2 (09:44→21:14)
[2019-01-21] MEDS: METOPROLOL 50 MG TAB PO SCH ×2 (09:44→21:14)
[2019-01-21] MEDS: FLUTICASONE/VILANTEROL 200-25 INH DEVICE INH SCH (09:45)
[2019-01-21] MEDS: BALSAM PERU/CASTOR OIL 60 GM TUBE TOP SCH (09:45)
[2019-01-21] MEDS: MUPIROCIN 2% 22 GM OINT TOP SCH ×2 (09:45→21:15)
--- NOTE | 2019-01-21 12:42 | PN ---
Date/Time of Note Date/Time of Note DATE: 01/21/19 TIME: 12:42 Assessment/Plan VTE Prophylaxis Risk score (from [facility])>0 risk: 6 SCD applied (from [facility] [place]): No SCD contraindicated: DVT Pharmacological prophylaxis: NA/contraindicated Pharm contraindication: bleeding Lines/Catheters IV Catheter Type (from [facility]): Mid Line Central line still needed: No Urinary Cath still in place: No Assessment/Plan Assessment/Plan 1. bacteremia/ uti/ conjunctivitis 2. a fib/ htn/ dvt 3. depression/ dementia/ debility worse 4. anemia ---per ID ---cont atbx ---cont all supportive cares ---must inc po jose raul intake ---may need ivf bolus if bp low due to not drink or eat enough today Result Diagram: 01/20/1962601/20/19626 Results 24hrs Laboratory Tests Test 01/20/19 14:28 Vancomycin Level Trough 12.6 Subjective 24 Hr Interval Summary Free Text/Dictation tired, no complaints Exam/Review of Systems Exam Vitals Vital Signs Date Temp Pulse Resp B/P (MAP) Pulse Ox O2 O2 Flow FiO2 Time Delivery Rate 01/21/19 98.6 61 20 110/54 100 Nasal 11:34 (72) Cannula 01/21/19 3.0 08:47 01/18/19 21 20:20 Intake and Output 01/20/19 01/20/19 01/21/19 1515:00 23:00 07:00 IntakeIntake Total 720 ml OutputOutput Total 350 ml 200 ml BalanceBalance 370 ml -200 ml Exam low volume wet coughs+, irreg irreg, dec bs bibasilar+, no c/c/+1 pit e, pale, in bed Results Results 24hrs Laboratory Tests Test 01/20/19 14:28 Vancomycin Level Trough 12.6 Medications Medication Current Medications IV Flush (NS 3 ml) 3 ml PER PROTOCOL IV ; Start 01/09/19 at 21:30 Ondansetron HCl (Zofran Inj) 4 mg Q6H PRN IV NAUSEA/VOMITING; Start 01/09/19 at 21:30 Clonidine (Catapres) 0.1 mg TID PRN PO sbp >170; Start 01/09/19 at 22:00 Acetaminophen (Tylenol Tab) 650 mg TID PRN PO MILD PAIN(1-3)OR ELEVATED TEMP; Start 01/09/19 at 22:00 Apixaban (Eliquis) 5 mg BID PO Last administered on 01/21/19 09:44; Admin Dose 5 MG; Start 01/10/19 at 09:00 Aripiprazole (Abilify) 5 mg DAILY PO Last administered on 01/21/19 09:42; Admin Dose 5 MG; Start 01/10/19 at 09:00 Metoprolol Tartrate (Lopressor) 50 mg BID PO Last administered on 01/21/19 09:44; Admin Dose 50 MG; Start 01/10/19 at 09:00 Pantoprazole (Protonix Tab) 40 mg AC BREAKFAST PO Last administered on 01/21/19 06:52; Admin Dose 40 MG; Start 01/10/19 at 07:00 Diltiazem HCl (Cardizem Cd) 120 mg DAILY PO Last administered on 01/21/19 09:43; Admin Dose 120 MG; Start 01/10/19 at 09:00 [facility] This patient sawyer... PRN PRN XX WOUND CARE; Start 01/10/19 at 07:30 Levalbuterol (Xopenex Neb) 0.63 mg Q6H RESP THERAPY HHN Last administered on 01/21/19 08:44; Admin Dose 0.63 MG; Start 01/10/19 at 14:00 Prednisone (Prednisone) 5 mg DAILY PO Last administered on 01/21/19 09:42; Admin Dose 5 MG; Start 01/11/19 at 09:00 Fluticasone/ Vilanterol (Breo Ellipta 200-25 Mcg Inh) 1 inh DAILY INH Last administered on 01/21/19 09:45; Admin Dose 1 INH; Start 01/11/19 at 09:00 Tiotropium [place] (Spiriva) 1 inh DAILY INH Last administered on 01/20/19 08:22; Admin Dose 1 INH; Start 01/11/19 at 09:00 Vancomycin HCl (Vanco Iv Per Pharmacy) VANCOMYCIN PER PHARMACY PER PROTOCOL XX ; Start 01/10/19 at 18:00 Guaifenesin (Mucinex) 600 mg BID PO Last administered on 01/21/19 09:44; Admin Dose 600 MG; Start 01/12/19 at 09:00 Acetylcysteine (Mucomyst) 2 ml Q6H RESP THERAPY NEB Last administered on 01/21/19 08:44; Admin Dose 2 ML; Start 01/12/19 at 02:00 Diazepam (Valium) 2 mg HS PRN PO for agitation, pulling on line Last administered on 01/14/19 21:29; Admin Dose 2 MG; Start 01/14/19 at 17:30 Mupirocin (Bactroban) 1 applic BID TOP Last administered on 01/21/19 09:45; Admin Dose 1 APPLIC; Start 01/16/19 at 09:00 Bupropion HCl (Wellbutrin Sr) 100 mg BID PO Last administered on 01/21/19 09:42; Admin Dose 100 MG; Start 01/16/19 at 09:00 Vancomycin/Sodium Chloride 250 ml @ 125 mls/hr Q36H IVPB Last administered on 01/20/19 16:13; Admin Dose 125 MLS/HR; Start 01/17/19 at 15:00 Escitalopram Oxalate (Lexapro) 5 mg DAILY PO Last administered on 01/21/19 09:42; Admin Dose 5 MG; Start 01/17/19 at 09:00 ARNOLD TAM MD Jan 21, 2019 12:42
[2019-01-22 02:00] VITALS: BP 110/52; PULSE 60; RESP 18
[2019-01-22] MEDS: LEVALBUTEROL (NEB) 0.63 MG/3 ML AMP HHN SCH ×4 (02:00→20:18)
[2019-01-22] MEDS: ACETYLCYSTEINE 20% 4 ML VIAL NEB SCH ×5 (02:00→20:18)
[2019-01-22] MEDS: VANCOMYCIN 750 MG (PMX) 250 ML IVPB SCH (03:25)
--- NOTE | 2019-01-22 07:14 | CONS ---
Assessment/Plan Assessment/Plan Hospital Course (Demo Recall) 1) MRSA bacteremia unclear source repeat blood cx now no significant microscopic hematuria noted, will check RF in a.m. will order 2d echo, to be read by Dr. Robbins continue with vanco pt has a recent hx of DVT to LLE and he may need WBC scan to r/o infected clot but will order joel doppler to see if it is still there no open wounds other than the colostomy and ileostomy but nurse reports no redness to the sites pt has a cough and some haziness at L base but unable to get sputum cx, nasal cx is pending 01/14 - sputum cx was obtained and has normal respiratory marely, nasal is positive for MRSA repeat blood cx are NGTD clot still present in LLE but not larger, will order WBC scan to see if bulk picker noted to clot area 2d echo was done but results are pending final length of IV vanco to be determined by WBC scan results, repeat blood cx and echo results but at least for 2 weeks 01/15 - 2d echo did not show obvious vegetations, sputum cx did eventually grow MRSA likely the bacteremia comes via the lung RF was neg continue with vanco thru 01/23/19 (two week course) 01/16 - stable on vanco/merrem decrease in platelets has bounced back, so can continue with vanco thru 01/23 and merrem thru 01/[address] abd/pelv due to mild uptake to R pelvic area 01/17 - nothing of import seen at RLQ on abd/pelv CT but L kidney complex cyst vs mass is noted pt finishes merrem after 01/18 doses continue vanco thru 01/23 01/20 - continue vanco thru 01/23 no new recommendations, will sign off creatinine was improved yesterday 01/22 - today's vanco is sufficient, I have stopped vanco after this day's dose 2) bacteriuria with mild-mod pyuria due to pseudomonas and e.coli +ESBL continue with merrem at present 01/14 - continue merrem for a total of 7 days 01/15 - continue merrem thru 01/18/1901/18 - d/c merrem after today's doses 01/20 - off merrem, no new problems 3)AMS pt is lethargic was apparently speaking upon admission likely due to metabolic encephalopathy check ammonia level in a.m. 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 6) recent DVT L calf is enlarged, to get venous doppler of area and if clot still present will order WBC to r/o infected clot 01/14 - no change in clot size on repeat venous doppler I will order WBC scan to see if there is possible infected clot, but I think it is low likelihood 01/15 - doubt DVT is infected, await WBC scan 01/16 - no sign on infected clot on WBC scan will order CT abd/pelv to verify no issue to R pelvic area as seen on WBC scan 7) LUE phlebitis this is likely due to a prior IV site to that area and became present after admission most likely 01/14 - improved 01/20 - resolved Consultation Date/Type/Reason Admit Date/Time Jan 10, 2019 at 11:21 Initial Consult Date 01/13/19 Type of Consult ID Date/Time of Note DATE: 01/22/19 TIME: 07:13 24 HR Interval Summary Free Text/Dictation no change Exam/Review of Systems Exam Vitals Vital Signs Date Temp Pulse Resp B/P (MAP) Pulse Ox O2 O2 Flow FiO2 Time Delivery Rate 01/22/19 2.0 02:07 01/22/19 98.6 60 18 110/52 92 Nasal 02:00 (71) Cannula 01/18/19 21 20:20 Intake and Output 01/21/19 01/21/19 01/22/19 1515:00 23:00 07:00 IntakeIntake Total 750 ml BalanceBalance 750 ml Respiratory: clear to auscultation Cardiovascular: regular rate and rhythm Gastrointestinal: soft, non-tender Results Result Diagram: 01/20/1962601/20/19626 Medications Medication Current Medications IV Flush (NS 3 ml) 3 ml PER PROTOCOL IV ; Start 01/09/19 at 21:30 Ondansetron HCl (Zofran Inj) 4 mg Q6H PRN IV NAUSEA/VOMITING; Start 01/09/19 at 21:30 Clonidine (Catapres) 0.1 mg TID PRN PO sbp >170; Start 01/09/19 at 22:00 Acetaminophen (Tylenol Tab) 650 mg TID PRN PO MILD PAIN(1-3)OR ELEVATED TEMP; Start 01/09/19 at 22:00 Apixaban (Eliquis) 5 mg BID PO Last administered on 01/21/19 21:14; Admin Dose 5 MG; Start 01/10/19 at 09:00 Aripiprazole (Abilify) 5 mg DAILY PO Last administered on 01/21/19 09:42; Admin Dose 5 MG; Start 01/10/19 at 09:00 Metoprolol Tartrate (Lopressor) 50 mg BID PO Last administered on 01/21/19 21:14; Admin Dose 50 MG; Start 01/10/19 at 09:00 Pantoprazole (Protonix Tab) 40 mg AC BREAKFAST PO Last administered on 01/21/19 06:52; Admin Dose 40 MG; Start 01/10/19 at 07:00 Diltiazem HCl (Cardizem Cd) 120 mg DAILY PO Last administered on 01/21/19 09:43; Admin Dose 120 MG; Start 01/10/19 at 09:00 Miscellaneous Information (Pending [facility] Order For Wound Care) This patient sawyer... PRN PRN XX WOUND CARE; Start 01/10/19 at 07:30 Levalbuterol (Xopenex Neb) 0.63 mg Q6H RESP THERAPY HHN Last administered on 01/21/19 20:27; Admin Dose 0.63 MG; Start 01/10/19 at 14:00 Prednisone (Prednisone) 5 mg DAILY PO Last administered on 01/21/19 09:42; Admin Dose 5 MG; Start 01/11/19 at 09:00 Fluticasone/ Vilanterol (Breo Ellipta 200-25 Mcg Inh) 1 inh DAILY INH Last administered on 01/21/19 09:45; Admin Dose 1 INH; Start 01/11/19 at 09:00 Tiotropium [place] (Spiriva) 1 inh DAILY INH Last administered on 01/20/19 08:22; Admin Dose 1 INH; Start 01/11/19 at 09:00 Vancomycin HCl (Vanco Iv Per Pharmacy) VANCOMYCIN PER PHARMACY PER PROTOCOL XX ; Start 01/10/19 at 18:00 Guaifenesin (Mucinex) 600 mg BID PO Last administered on 01/21/19 21:14; Admin Dose 600 MG; Start 01/12/19 at 09:00 Acetylcysteine (Mucomyst) 2 ml Q6H RESP THERAPY NEB Last administered on 01/21/19 08:44; Admin Dose 2 ML; Start 01/12/19 at 02:00 Diazepam (Valium) 2 mg HS PRN PO for agitation, pulling on line Last administered on 01/14/19 21:29; Admin Dose 2 MG; Start 01/14/19 at 17:30 Mupirocin (Bactroban) 1 applic BID TOP Last administered on 01/21/19 21:15; Admin Dose 1 APPLIC; Start 01/16/19 at 09:00 Bupropion HCl (Wellbutrin Sr) 100 mg BID PO Last administered on 01/21/19 21:27; Admin Dose 100 MG; Start 01/16/19 at 09:00 Vancomycin/Sodium Chloride 250 ml @ 125 mls/hr Q36H IVPB Last administered on 01/22/19 03:25; Admin Dose 125 MLS/HR; Start 01/17/19 at 15:00 Escitalopram Oxalate (Lexapro) 5 mg DAILY PO Last administered on 01/21/19 09:42; Admin Dose 5 MG; Start 01/17/19 at 09:00 MIGUELITO VASQUEZ MD Jan 22, 2019 07:14
[2019-01-22] MEDS: ARIPIPRAZOLE 5 MG TAB PO SCH (09:06)
[2019-01-22] MEDS: ESCITALOPRAM 10 MG TAB PO SCH (09:06)
[2019-01-22] MEDS: GUAIFENESIN LA 600 MG TABSR PO SCH ×2 (09:06→21:01)
[2019-01-22] MEDS: PANTOPRAZOLE (EC) 40 MG TAB PO SCH (09:06)
[2019-01-22] MEDS: APIXABAN 5 MG TABLET PO SCH ×2 (09:06→21:01)
[2019-01-22] MEDS: METOPROLOL 50 MG TAB PO SCH ×2 (09:08→21:00)
[2019-01-22] MEDS: MUPIROCIN 2% 22 GM OINT TOP SCH ×2 (09:13→21:04)
[2019-01-22] MEDS: FLUTICASONE/VILANTEROL 200-25 INH DEVICE INH SCH (09:13)
[2019-01-22] MEDS: BALSAM PERU/CASTOR OIL 60 GM TUBE TOP SCH (09:13)
[2019-01-22 09:28] VITALS: BP 103/49; PULSE 77; RESP 18
--- NOTE | 2019-01-22 13:32 | PN ---
Date/Time of Note Date/Time of Note DATE: 01/22/19 TIME: 11:32 Assessment/Plan VTE Prophylaxis Risk score (from [facility] [place] risk: 6 SCD applied (from [facility] [place]): No SCD contraindicated: DVT Pharmacological prophylaxis: NA/contraindicated Pharm contraindication: bleeding Lines/Catheters IV Catheter Type (from [facility]): Mid Line Central line still needed: No Urinary Cath still in place: No Assessment/Plan Assessment/Plan 1. bacteremia/ uti/ conjunctivitis 2. a fib/ dvt 3, depression/ dementia/ slow to recovery/ no appetite 4. anemia 5. debility worsening ---per ID, ---finish off atbxs ---encourage PT eval & exercise ---home food ok Result Diagram: 01/20/1962601/20/19626 Subjective 24 Hr Interval Summary Free Text/Dictation lying in bed, does not wanna eat hosp food Exam/Review of Systems Exam Vitals Vital Signs Date Temp Pulse Resp B/P (MAP) Pulse Ox O2 O2 Flow FiO2 Time Delivery Rate 01/22/19 55 18 99 Nasal 2.0 13:30 Cannula 01/22/19 97.6 103/49 09:28 (67) 01/18/19 21 20:20 Intake and Output 01/21/19 01/21/19 01/22/19 1414:59 22:59 06:59 IntakeIntake Total 750 ml BalanceBalance 750 ml Exam not cooperating w/ PT exercise, rr syst m+, dec bs bibasilar+, wet coughs+, no c/c/e pale+ Medications Medication Current Medications IV Flush (NS 3 ml) 3 ml PER PROTOCOL IV ; Start 01/09/19 at 21:30 Ondansetron HCl (Zofran Inj) 4 mg Q6H PRN IV NAUSEA/VOMITING; Start 01/09/19 at 21:30 Clonidine (Catapres) 0.1 mg TID PRN PO sbp >170; Start 01/09/19 at 22:00 Acetaminophen (Tylenol Tab) 650 mg TID PRN PO MILD PAIN(1-3)OR ELEVATED TEMP; Start 01/09/19 at 22:00 Apixaban (Eliquis) 5 mg BID PO Last administered on 01/22/19at 09:06; Admin Dose 5 MG; Start 01/10/19 at 09:00 Aripiprazole (Abilify) 5 mg DAILY PO Last administered on 01/22/19 09:06; Admin Dose 5 MG; Start 01/10/19 at 09:00 Metoprolol Tartrate (Lopressor) 50 mg BID PO Last administered on 01/22/19 09:08; Admin Dose 50 MG; Start 01/10/19 at 09:00 Pantoprazole (Protonix Tab) 40 mg AC BREAKFAST PO Last administered on 01/22/19 09:06; Admin Dose 40 MG; Start 01/10/19 at 07:00 Diltiazem HCl (Cardizem Cd) 120 mg DAILY PO Last administered on 01/21/19 09:43; Admin Dose 120 MG; Start 01/10/19 at 09:00 Miscellaneous Information [facility] This patient sawyer... PRN PRN XX WOUND CARE; Start 01/10/19 at 07:30 Levalbuterol (Xopenex Neb) 0.63 mg Q6H RESP THERAPY HHN Last administered on 01/22/19 13:29; Admin Dose 0.63 MG; Start 01/10/19 at 14:00 Prednisone (Prednisone) 5 mg DAILY PO Last administered on 01/21/19 09:42; Admin Dose 5 MG; Start 01/11/19 at 09:00 Fluticasone/ Vilanterol (Breo Ellipta 200-25 Mcg Inh) 1 inh DAILY INH Last administered on 01/22/19 09:13; Admin Dose 1 INH; Start 01/11/19 at 09:00 Tiotropium [place] (Spiriva) 1 inh DAILY INH Last administered on 01/20/19 08:22; Admin Dose 1 INH; Start 01/11/19 at 09:00 Guaifenesin (Mucinex) 600 mg BID PO Last administered on 01/22/19 09:06; Admin Dose 600 MG; Start 01/12/19 at 09:00 Acetylcysteine (Mucomyst) 2 ml Q6H RESP THERAPY NEB Last administered on 01/22/19 13:29; Admin Dose 2 ML; Start 01/12/19 at 02:00 Diazepam (Valium) 2 mg HS PRN PO for agitation, pulling on line Last administered on 01/14/19 21:29; Admin Dose 2 MG; Start 01/14/19 at 17:30 Mupirocin (Bactroban) 1 applic BID TOP Last administered on 01/22/19 09:13; Admin Dose 1 APPLIC; Start 01/16/19 at 09:00 Bupropion HCl (Wellbutrin Sr) 100 mg BID PO Last administered on 01/21/19 21:27; Admin Dose 100 MG; Start 01/16/19 at 09:00 Escitalopram Oxalate (Lexapro) 5 mg DAILY PO Last administered on 01/22/19 09:06; Admin Dose 5 MG; Start 01/17/19 at 09:00 ARNOLD TAM MD Jan 22, 2019 13:32
[2019-01-22] MEDS: TIOTROPIUM 18 MCG CAPSULE INHA DEV INH SCH (13:36)
[2019-01-22] MEDS: DILTIAZEM (CD) 120 MG CAP PO SCH (13:36)
[2019-01-22] MEDS: BUPROPION (SR) 100 MG TAB PO SCH ×2 (13:42→21:25)
[2019-01-22 14:38] VITALS: BP 122/49; PULSE 58
[2019-01-22] MEDS: predniSONE 5 MG TAB PO SCH (15:29)
[2019-01-22 20:17] VITALS: BP 98/51; PULSE 66; RESP 16
[2019-01-22 21:01] VITALS: BP 95/47
[2019-01-22] MEDS ORDERED: SOD CHLORIDE 0.9% 500 ML IV ONE (22:00)
[2019-01-23] MEDS: LEVALBUTEROL (NEB) 0.63 MG/3 ML AMP HHN SCH ×5 (01:35→19:58)
[2019-01-23] MEDS: ACETYLCYSTEINE 20% 4 ML VIAL NEB SCH ×4 (01:42→19:58)
[2019-01-23 01:52] VITALS: BP 146/65; PULSE 60; RESP 20
[2019-01-23 07:20] VITALS: BP 111/53; PULSE 71; RESP 18
[2019-01-23] MEDS: GUAIFENESIN LA 600 MG TABSR PO SCH ×2 (08:46→21:27)
[2019-01-23] MEDS: METOPROLOL 25 MG TAB PO SCH ×2 (08:47→21:28)
[2019-01-23] MEDS: ARIPIPRAZOLE 5 MG TAB PO SCH (08:48)
[2019-01-23] MEDS: BUPROPION (SR) 100 MG TAB PO SCH ×2 (08:48→21:27)
[2019-01-23] MEDS: APIXABAN 5 MG TABLET PO SCH ×2 (08:48→21:28)
[2019-01-23] MEDS: DILTIAZEM (CD) 120 MG CAP PO SCH (08:48)
[2019-01-23] MEDS: TIOTROPIUM 18 MCG CAPSULE INHA DEV INH SCH (08:49)
[2019-01-23] MEDS: ESCITALOPRAM 10 MG TAB PO SCH (08:49)
[2019-01-23] MEDS: PANTOPRAZOLE (EC) 40 MG TAB PO SCH (08:49)
[2019-01-23] MEDS: FLUTICASONE/VILANTEROL 200-25 INH DEVICE INH SCH (08:50)
[2019-01-23] MEDS: BALSAM PERU/CASTOR OIL 60 GM TUBE TOP SCH (08:51)
[2019-01-23] MEDS: MUPIROCIN 2% 22 GM OINT TOP SCH ×2 (08:51→21:33)
[2019-01-23] MEDS: predniSONE 5 MG TAB PO SCH (11:39)
--- NOTE | 2019-01-23 13:36 | PN ---
Date/Time of Note Date/Time of Note DATE: 01/23/19 TIME: 13:36 Assessment/Plan VTE Prophylaxis Risk [place] [facility] [place] risk: 7 SCD applied (from [facility] [place]): Yes Pharmacological prophylaxis: NA/contraindicated, rivaroxaban Pharm contraindication: bleeding Lines/Catheters IV Cathe[facility] Type (from [facility]): Mid Line Central line still needed: No Urinary Cath still in place: No Assessment/Plan Assessment/Plan 1. bacteremia/ uti/ conjuctivitis 2. a fib/ dvt/ episodes of low bp 3. depression/ dementia/ slow to recovery/ anorexia 4. anemia ---per ID ---finish off atbx ---epogen 10,000u x1 ---megace soln trial ---must promote oob PT exercise, unless cannot go home Result Diagram: 01/23/19 0648 01/23/19 0648 Results 24hrs Laboratory Tests Test 01/23/19 06:48 White Blood Count 9.7 Red Blood Count 3.05 L Hemoglobin 8.6 L Hematocrit 29.4 L Mean Corpuscular Volume 96.4 Mean Corpuscular Hemoglobin 28.2 L Mean Corpuscular Hemoglobin Concent 29.3 L Red Cell Distribution Width 16.2 H Platelet Count 165 # Mean Platelet Volume 11.3 H Immature Granulocytes % 0.400 Neutrophils % 75.5 Lymphocytes % 12.3 L Monocytes % 9.8 Eosinophils % 1.7 Basophils % 0.3 Nucleated Red Blood Cells % 0.0 Immature Granulocytes # 0.040 H Neutrophils # 7.3 Lymphocytes # 1.2 Monocytes # 1.0 H Eosinophils # 0.2 Basophils # 0.0 Nucleated Red Blood Cells # 0.0 Sodium Level 149 H Potassium Level 4.3 Chloride Level 115 H Carbon Dioxide Level 25 Anion Gap 9 Blood Urea Nitrogen 34 H Creatinine 1.17 Est Glomerular Filtrat Rate mL/min Glucose Level 104 Calcium Level 9.8 Magnesium Level 1.8 Subjective 24 Hr Interval Summary Free Text/Dictation no appetite, Exam/Review of Systems Exam Vitals Vital Signs Date Temp Pulse Resp B/P (MAP) Pulse Ox O2 O2 Flow FiO2 Time Delivery Rate 01/23/19 Nasal 2.0 09:00 Cannula 01/23/19 98.0 71 18 111/53 92 07:20 (72) 01/23/19 21 01:35 Intake and Output 01/22/19 01/22/19 01/23/19 1515:00 23:00 07:00 IntakeIntake Total 370 ml 360 ml 550 ml OutputOutput Total 200 ml BalanceBalance 370 ml 160 ml 550 ml Exam in bed, only drank boost, dec bs bibasilar, irreg irreg, no c/c/e, pale Results Results 24hrs Laboratory Tests Test 01/23/19 06:48 White Blood Count 9.7 Red Blood Count 3.05 L Hemoglobin 8.6 L Hematocrit 29.4 L Mean Corpuscular Volume 96.4 Mean Corpuscular Hemoglobin 28.2 L Mean Corpuscular Hemoglobin Concent 29.3 L Red Cell Distribution Width 16.2 H Platelet Count 165 # Mean Platelet Volume 11.3 H Immature Granulocytes % 0.400 Neutrophils % 75.5 Lymphocytes % 12.3 L Monocytes % 9.8 Eosinophils % 1.7 Basophils % 0.3 Nucleated Red Blood Cells % 0.0 Immature Granulocytes # 0.040 H Neutrophils # 7.3 Lymphocytes # 1.2 Monocytes # 1.0 H Eosinophils # 0.2 Basophils # 0.0 Nucleated Red Blood Cells # 0.0 Sodium Level 149 H Potassium Level 4.3 Chloride Level 115 H Carbon Dioxide Level 25 Anion Gap 9 Blood Urea Nitrogen 34 H Creatinine 1.17 Est Glomerular Filtrat Rate mL/min Glucose Level 104 Calcium Level 9.8 Magnesium Level 1.8 Medications Medication Current Medications IV Flush (NS 3 ml) 3 ml PER PROTOCOL IV ; Start 01/09/19 at 21:30 Ondansetron HCl (Zofran Inj) 4 mg Q6H PRN IV NAUSEA/VOMITING; Start 01/09/19 at 21:30 Clonidine (Catapres) 0.1 mg TID PRN PO sbp >170; Start 01/09/19 at 22:00 Acetaminophen (Tylenol Tab) 650 mg TID PRN PO MILD PAIN(1-3)OR ELEVATED TEMP; Start 01/09/19 at 22:00 Apixaban (Eliquis) 5 mg BID PO Last administered on 01/23/19at 08:48; Admin Dose 5 MG; Start 01/10/19 at 09:00 Aripiprazole (Abilify) 5 mg DAILY PO Last administered on 01/23/19at 08:48; Admin Dose 5 MG; Start 01/10/19 at 09:00 Pantoprazole (Protonix Tab) 40 mg AC BREAKFAST PO Last administered on 01/23/19 08:49; Admin Dose 40 MG; Start 01/10/19 at 07:00 Diltiazem HCl (Cardizem Cd) 120 mg DAILY PO Last administered on 01/23/19 08:48; Admin Dose 120 MG; Start 01/10/19 at 09:00 Miscellaneous Information (Pending [facility] For [facility]ound Care) This patient sawyer... PRN PRN XX WOUND CARE; Start 01/10/19 at 07:30 Levalbuterol (Xopenex Neb) 0.63 mg Q6H RESP THERAPY HHN Last administered on 01/23/19 01:41; Admin Dose 0.63 MG; Start 01/10/19 at 14:00 Prednisone (Prednisone) 5 mg DAILY PO Last administered on 01/23/19 11:39; Admin Dose 5 MG; Start 01/11/19 at 09:00 Fluticasone/ Vilanterol (Breo Ellipta 200-25 Mcg Inh) 1 inh DAILY INH Last administered on 01/23/19 08:50; Admin Dose 1 INH; Start 01/11/19 at 09:00 Tiotropium [place] (Spiriva) 1 inh DAILY INH Last administered on 01/23/19 08:49; Admin Dose 1 INH; Start 01/11/19 at 09:00 Guaifenesin (Mucinex) 600 mg BID PO Last administered on 01/23/19 08:46; Admin Dose 600 MG; Start 01/12/19 at 09:00 Acetylcysteine (Mucomyst) 2 ml Q6H RESP THERAPY NEB Last administered on 01/23/19 01:42; Admin Dose 2 ML; Start 01/12/19 at 02:00 Diazepam (Valium) 2 mg HS PRN PO for agitation, pulling on line Last administered on 01/14/19 21:29; Admin Dose 2 MG; Start 01/14/19 at 17:30 Mupirocin (Bactroban) 1 applic BID TOP Last administered on 01/23/19 08:51; Admin Dose 1 APPLIC; Start 01/16/19 at 09:00 Bupropion HCl (Wellbutrin Sr) 100 mg BID PO Last administered on 01/23/19 08:48; Admin Dose 100 MG; Start 01/16/19 at 09:00 Escitalopram Oxalate (Lexapro) 5 mg DAILY PO Last administered on 01/23/19at 08:49; Admin Dose 5 MG; Start 01/17/19 at 09:00 Metoprolol Tartrate (Lopressor) 25 mg BID PO Last administered on 01/23/19at 08:47; Admin Dose 25 MG; Start 01/23/19 at 09:00 ARNOLD TAM MD Jan 23, 2019 13:36
[2019-01-23] MEDS ORDERED: EPOETIN 10000 UNITS/ML (NON ESRD/NON ONCOLOGY) SC ONE (14:00)
[2019-01-23 14:18] VITALS: BP 88/49; PULSE 73; RESP 18
[2019-01-23 14:40] VITALS: BP 117/49; PULSE 71; RESP 18
[2019-01-23] MEDS: MEGESTROL (40 MG/ML) 10ML CUP PO SCH (15:43)
[2019-01-23 20:57] VITALS: BP 107/61; PULSE 75; RESP 18
[2019-01-24 01:56] VITALS: BP 108/67; PULSE 74; RESP 16
[2019-01-24] MEDS: ACETYLCYSTEINE 20% 4 ML VIAL NEB SCH ×4 (02:00→21:31)
[2019-01-24] MEDS: LEVALBUTEROL (NEB) 0.63 MG/3 ML AMP HHN SCH ×4 (02:00→21:31)
[2019-01-24 08:00] VITALS: BP 138/65; PULSE 71; RESP 18
[2019-01-24] MEDS: BUPROPION (SR) 100 MG TAB PO SCH ×2 (08:32→20:33)
[2019-01-24] MEDS: DILTIAZEM (CD) 120 MG CAP PO SCH (08:32)
[2019-01-24] MEDS: PANTOPRAZOLE (EC) 40 MG TAB PO SCH (08:32)
[2019-01-24] MEDS: APIXABAN 5 MG TABLET PO SCH ×2 (08:33→20:33)
[2019-01-24] MEDS: GUAIFENESIN LA 600 MG TABSR PO SCH ×2 (08:33→20:33)
[2019-01-24] MEDS: ARIPIPRAZOLE 5 MG TAB PO SCH (08:33)
[2019-01-24] MEDS: ESCITALOPRAM 10 MG TAB PO SCH (08:33)
[2019-01-24] MEDS: MEGESTROL (40 MG/ML) 10ML CUP PO SCH (08:34)
[2019-01-24] MEDS: predniSONE 5 MG TAB PO SCH (08:34)
[2019-01-24] MEDS: METOPROLOL 25 MG TAB PO SCH ×2 (08:34→20:34)
[2019-01-24] MEDS: BALSAM PERU/CASTOR OIL 60 GM TUBE TOP SCH (09:00)
[2019-01-24] MEDS: FLUTICASONE/VILANTEROL 200-25 INH DEVICE INH SCH (09:00)
[2019-01-24] MEDS: MUPIROCIN 2% 22 GM OINT TOP SCH ×2 (09:00→20:35)
--- NOTE | 2019-01-24 13:15 | PN ---
Date/Time of Note Date/Time of Note DATE: 01/24/19 TIME: 13:15 Assessment/Plan VTE Prophylaxis Risk score (from [facility] [place] [place])>0 risk: 10 SCD applied (from [facility] [place] [place]): Yes SCD contraindicated: DVT Pharmacological prophylaxis: apixaban Lines/Catheters IV Catheter Type (from [facility] [place]): NO IV ACCESS- MD AWARE Central line still needed: No Urinary Cath still in place: No Assessment/Plan Assessment/Plan 1. anemia 2. bacteremia/ uti/ conjunctivitis 3. a fib/ htn 4. depression/ dementia/ slow to recovery 5. copd 6. ckd II ---transfuse 2u prbc ---per ID ---cont all supportive cares ---must improve po jose raul intake ---must inc PT exercise ---most likely needs to go to rehab prior home Result Diagram: 01/24/19 0656 01/24/19 0656 Results 24hrs Laboratory Tests Test 01/24/19 06:56 White Blood Count 9.3 Red Blood Count 2.63 L Hemoglobin 7.4 L Hematocrit 24.9 L Mean Corpuscular Volume 94.7 Mean Corpuscular Hemoglobin 28.1 L Mean Corpuscular Hemoglobin Concent 29.7 L Red Cell Distribution Width 16.6 H Platelet Count 107 #L Mean Platelet Volume 11.6 H Immature Granulocytes % 0.500 H Neutrophils % 71.0 Segmented Neutrophils % (Manual) 70 Band Neutrophils % (Manual) 2 Lymphocytes % 14.9 L Lymphocytes % (Manual) 15 Reactive Lymphocytes % (Manual) 1 H Monocytes % 11.1 H Monocytes % (Manual) 8 Eosinophils % 2.2 Eosinophils % (Manual) 4 Basophils % 0.3 Nucleated Red Blood Cells % 0.0 Immature Granulocytes # 0.050 H Neutrophils # 6.6 Neutrophils # (Manual) 6.5 Band Neutrophils # 0.1 Lymphocytes (Manual) 1.3 Lymphocytes # 1.4 Reactive Lymphocytes # 0.0 Monocytes # 1.0 H Monocytes # (Manual) 0.7 Eosinophils # 0.2 Basophils # 0.0 Nucleated Red Blood Cells # 0.0 Platelet Estimate DECREASED Polychromasia 2+ Poikilocytosis 3+ Anisocytosis 2+ Microcytosis 2+ Ovalocytes 1+ Sodium Level 147 H Potassium Level 4.4 Chloride Level 111 H Carbon Dioxide Level 28 Anion Gap 8 Blood Urea Nitrogen 38 H Creatinine 1.10 Est Glomerular Filtrat Rate mL/min Glucose Level 81 Calcium Level 9.3 Subjective 24 Hr Interval Summary Free Text/Dictation anorexia, more sleepy, Exam/Review of Systems Exam Vitals Vital Signs Date Temp Pulse Resp B/P (MAP) Pulse Ox O2 O2 Flow FiO2 Time Delivery Rate 01/24/19 Nasal 2.0 10:29 Cannula 01/24/19 98.5 71 18 138/65 97 08:00 (89) 01/23/19 21 01:35 Intake and Output 01/23/19 01/23/19 01/24/19 1515:00 23:00 07:00 IntakeIntake Total 750 ml 350 ml BalanceBalance 750 ml 350 ml Exam in bed, pale, irreg irreg, dec bs bibasilar, no c/c/e, slow to wake up Results Results 24hrs Laboratory Tests Test 01/24/19 06:56 White Blood Count 9.3 Red Blood Count 2.63 L Hemoglobin 7.4 L Hematocrit 24.9 L Mean Corpuscular Volume 94.7 Mean Corpuscular Hemoglobin 28.1 L Mean Corpuscular Hemoglobin Concent 29.7 L Red Cell Distribution Width 16.6 H Platelet Count 107 #L Mean Platelet Volume 11.6 H Immature Granulocytes % 0.500 H Neutrophils % 71.0 Segmented Neutrophils % (Manual) 70 Band Neutrophils % (Manual) 2 Lymphocytes % 14.9 L Lymphocytes % (Manual) 15 Reactive Lymphocytes % (Manual) 1 H Monocytes % 11.1 H Monocytes % (Manual) 8 Eosinophils % 2.2 Eosinophils % (Manual) 4 Basophils % 0.3 Nucleated Red Blood Cells % 0.0 Immature Granulocytes # 0.050 H Neutrophils # 6.6 Neutrophils # (Manual) 6.5 Band Neutrophils # 0.1 Lymphocytes (Manual) 1.3 Lymphocytes # 1.4 Reactive Lymphocytes # 0.0 Monocytes # 1.0 H Monocytes # (Manual) 0.7 Eosinophils # 0.2 Basophils # 0.0 Nucleated Red Blood Cells # 0.0 Platelet Estimate DECREASED Polychromasia 2+ Poikilocytosis 3+ Anisocytosis 2+ Microcytosis 2+ Ovalocytes 1+ Sodium Level 147 H Potassium Level 4.4 Chloride Level 111 H Carbon Dioxide Level 28 Anion Gap 8 Blood Urea Nitrogen 38 H Creatinine 1.10 Est Glomerular Filtrat Rate mL/min Glucose Level 81 Calcium Level 9.3 Medications Medication Current Medications IV Flush (NS 3 ml) 3 ml PER PROTOCOL IV ; Start 01/09/19 at 21:30 Ondansetron HCl (Zofran Inj) 4 mg Q6H PRN IV NAUSEA/VOMITING; Start 01/09/19 at 21:30 Clonidine (Catapres) 0.1 mg TID PRN PO sbp >170; Start 01/09/19 at 22:00 Acetaminophen (Tylenol Tab) 650 mg TID PRN PO MILD PAIN(1-3)OR ELEVATED TEMP; Start 01/09/19 at 22:00 Apixaban (Eliquis) 5 mg BID PO Last administered on 01/24/19 08:33; Admin Dose 5 MG; Start 01/10/19 at 09:00 Aripiprazole (Abilify) 5 mg DAILY PO Last administered on 01/24/19 08:33; Admin Dose 5 MG; Start 01/10/19 at 09:00 Pantoprazole (Protonix Tab) 40 mg AC BREAKFAST PO Last administered on 01/24/19 08:32; Admin Dose 40 MG; Start 01/10/19 at 07:00 Diltiazem HCl (Cardizem Cd) 120 mg DAILY PO Last administered on 01/24/19 08:32; Admin Dose 120 MG; Start 01/10/19 at 09:00 Miscellaneous Information (Pending [facility] Order For Wound Care) This patient sawyer... PRN PRN XX WOUND CARE; Start 01/10/19 at 07:30 Levalbuterol (Xopenex Neb) 0.63 mg Q6H RESP THERAPY HHN Last administered on 01/24/19 07:57; Admin Dose 0.63 MG; Start 01/10/19 at 14:00 Prednisone (Prednisone) 5 mg DAILY PO Last administered on 01/24/19 08:34; Admin Dose 5 MG; Start 01/11/19 at 09:00 Fluticasone/ Vilanterol (Breo Ellipta 200-25 Mcg Inh) 1 inh DAILY INH Last administered on 01/23/19 08:50; Admin Dose 1 INH; Start 01/11/19 at 09:00 Tiotropium [place] (Spiriva) 1 inh DAILY INH Last administered on 01/23/19 08:49; Admin Dose 1 INH; Start 01/11/19 at 09:00 Guaifenesin (Mucinex) 600 mg BID PO Last administered on 01/24/19 08:33; Admin Dose 600 MG; Start 01/12/19 at 09:00 Acetylcysteine (Mucomyst) 2 ml Q6H RESP THERAPY NEB Last administered on 01/24/19 08:08; Admin Dose 2 ML; Start 01/12/19 at 02:00 Diazepam (Valium) 2 mg HS PRN PO for agitation, pulling on line Last administered on 01/14/19 21:29; Admin Dose 2 MG; Start 01/14/19 at 17:30 Mupirocin (Bactroban) 1 applic BID TOP Last administered on 01/23/19 21:33; Admin Dose 1 APPLIC; Start 01/16/19 at 09:00 Bupropion HCl (Wellbutrin Sr) 100 mg BID PO Last administered on 01/24/19 08:32; Admin Dose 100 MG; Start 01/16/19 at 09:00 Escitalopram Oxalate (Lexapro) 5 mg DAILY PO Last administered on 01/24/19 08:33; Admin Dose 5 MG; Start 01/17/19 at 09:00 Metoprolol Tartrate (Lopressor) 25 mg BID PO Last administered on 01/24/19 08:34; Admin Dose 25 MG; Start 01/23/19 at 09:00 Megestrol Acetate (Megace Susp) 400 mg AM PO Last administered on 01/24/19 08:34; Admin Dose 400 MG; Start 01/23/19 at 14:00 ARNOLD TAM MD Jan 24, 2019 13:15
[2019-01-24] MEDS: TIOTROPIUM 18 MCG CAPSULE INHA DEV INH SCH (13:40)
[2019-01-24 13:50] VITALS: BP 131/62; PULSE 64; RESP 18
[2019-01-24] MEDS ORDERED: FUROSEMIDE 20 MG INJ IV ONE ×2 (14:00)
[2019-01-24] MEDS ORDERED: DIPHENHYDRAMINE 50 MG CAP PO ONE (14:00)
[2019-01-24 20:22] VITALS: BP 105/52; PULSE 67; RESP 16
[2019-01-25] MEDS: ACETYLCYSTEINE 20% 4 ML VIAL NEB SCH ×4 (01:38→19:35)
[2019-01-25] MEDS: LEVALBUTEROL (NEB) 0.63 MG/3 ML AMP HHN SCH ×4 (01:38→19:35)
[2019-01-25 03:41] VITALS: BP 130/58; PULSE 67; RESP 16
[2019-01-25 08:00] VITALS: BP 165/61; PULSE 73; RESP 17
[2019-01-25] MEDS: MEGESTROL (40 MG/ML) 10ML CUP PO SCH (09:15)
[2019-01-25] MEDS: TIOTROPIUM 18 MCG CAPSULE INHA DEV INH SCH (09:16)
[2019-01-25] MEDS: DILTIAZEM (CD) 120 MG CAP PO SCH (09:16)
[2019-01-25] MEDS: APIXABAN 5 MG TABLET PO SCH ×2 (09:16→20:06)
[2019-01-25] MEDS: METOPROLOL 25 MG TAB PO SCH ×2 (09:17→20:13)
[2019-01-25] MEDS: predniSONE 5 MG TAB PO SCH (09:17)
[2019-01-25] MEDS: BUPROPION (SR) 100 MG TAB PO SCH ×2 (09:17→20:06)
[2019-01-25] MEDS: GUAIFENESIN LA 600 MG TABSR PO SCH ×2 (09:17→20:06)
[2019-01-25] MEDS: ARIPIPRAZOLE 5 MG TAB PO SCH (09:17)
[2019-01-25] MEDS: ESCITALOPRAM 10 MG TAB PO SCH (09:17)
[2019-01-25] MEDS: PANTOPRAZOLE (EC) 40 MG TAB PO SCH (09:18)
[2019-01-25] MEDS: MUPIROCIN 2% 22 GM OINT TOP SCH ×2 (09:23→20:07)
[2019-01-25] MEDS: BALSAM PERU/CASTOR OIL 60 GM TUBE TOP SCH (09:23)
[2019-01-25] MEDS: FLUTICASONE/VILANTEROL 200-25 INH DEVICE INH SCH (10:03)
[2019-01-25 14:05] VITALS: BP 109/46; PULSE 64; RESP 20
[2019-01-25 19:55] VITALS: BP 123/58; PULSE 67; RESP 18
[2019-01-26 02:25] VITALS: BP 156/67; PULSE 75; RESP 18
[2019-01-26] MEDS: LEVALBUTEROL (NEB) 0.63 MG/3 ML AMP HHN SCH ×4 (02:46→19:29)
[2019-01-26] MEDS: ACETYLCYSTEINE 20% 4 ML VIAL NEB SCH ×3 (02:46→14:39)
[2019-01-26] MEDS: PANTOPRAZOLE (EC) 40 MG TAB PO SCH ×2 (07:25→09:01)
[2019-01-26 08:40] VITALS: BP 140/77; PULSE 82; RESP 17
[2019-01-26] MEDS: predniSONE 5 MG TAB PO SCH (09:00)
[2019-01-26] MEDS: GUAIFENESIN LA 600 MG TABSR PO SCH ×2 (09:00→21:36)
[2019-01-26] MEDS: TIOTROPIUM 18 MCG CAPSULE INHA DEV INH SCH (09:00)
[2019-01-26] MEDS: BUPROPION (SR) 100 MG TAB PO SCH ×2 (09:01→21:36)
[2019-01-26] MEDS: APIXABAN 5 MG TABLET PO SCH ×2 (09:01→21:36)
[2019-01-26] MEDS: ESCITALOPRAM 10 MG TAB PO SCH (09:01)
[2019-01-26] MEDS: METOPROLOL 25 MG TAB PO SCH ×2 (09:01→21:37)
[2019-01-26] MEDS: DILTIAZEM (CD) 120 MG CAP PO SCH (09:01)
[2019-01-26] MEDS: FLUTICASONE/VILANTEROL 200-25 INH DEVICE INH SCH (09:01)
[2019-01-26] MEDS: MEGESTROL (40 MG/ML) 10ML CUP PO SCH (09:02)
[2019-01-26] MEDS: BALSAM PERU/CASTOR OIL 60 GM TUBE TOP SCH (09:13)
[2019-01-26] MEDS: MUPIROCIN 2% 22 GM OINT TOP SCH ×2 (09:14→21:37)
[2019-01-26] MEDS: ARIPIPRAZOLE 5 MG TAB PO SCH (10:31)
[2019-01-26 14:08] VITALS: BP 135/75; PULSE 80; RESP 17
--- NOTE | 2019-01-26 16:14 | PN ---
Date/Time of Note Date/Time of Note DATE: 01/26/19 TIME: 16:14 Assessment/Plan VTE Prophylaxis Risk score (from N[facility])>0 risk: 3 SCD applied (from [facility]): Yes Pharmacological prophylaxis: apixaban Lines/Catheters IV Catheter Type (from Nrsg): Saline Lock Central line still needed: No Urinary Cath still in place: No Assessment/Plan Assessment/Plan 1. anemia--s/p 2u prbc 2. s/p bacteremia/ uti 3. h/o copd 4. ckd II 5. h/o htn/ chf 6. depression/ dementia/ very poor recovery/ anorexia? ---must assist eating to improve po jose raul intake ---told to bring home food ---must inc oob ---finish atbx soon ---d/c pred soon? 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, irreg irreg, dec bs bibasilar, no c/c/e Results Results 24hrs Laboratory Tests Test 01/26/19 06:05 Lab Scanned Report BLOOD TRANSFUSION Medications Medication Current Medications IV Flush (NS 3 ml) 3 ml PER PROTOCOL IV ; Start 01/09/19 at 21:30 Ondansetron HCl (Zofran Inj) 4 mg Q6H PRN IV NAUSEA/VOMITING; Start 01/09/19 at 21:30 Clonidine (Catapres) 0.1 mg TID PRN PO sbp >170; Start 01/09/19 at 22:00 Acetaminophen (Tylenol Tab) 650 mg TID PRN PO MILD PAIN(1-3)OR ELEVATED TEMP Last administered on 01/24/19 14:30; Admin Dose 650 MG; Start 01/09/19 at 22:00 Apixaban (Eliquis) 5 mg BID PO Last administered on 01/26/19 09:01; Admin Dose 5 MG; Start 01/10/19 at 09:00 Aripiprazole (Abilify) 5 mg DAILY PO Last administered on 01/26/19 10:31; Admin Dose 5 MG; Start 01/10/19 at 09:00 Pantoprazole (Protonix Tab) 40 mg AC BREAKFAST PO Last administered on 01/26/19 09:01; Admin Dose 40 MG; Start 01/10/19 at 07:00 Diltiazem HCl (Cardizem Cd) 120 mg DAILY PO Last administered on 01/26/19 09:01; Admin Dose 120 MG; Start 01/10/19 at 09:00 Miscellaneous Information (Pending [facility] Order For Wound Care) This patient sawyer... PRN PRN XX WOUND CARE; Start 01/10/19 at 07:30 Levalbuterol (Xopenex Neb) 0.63 mg Q6H RESP THERAPY HHN Last administered on 01/26/19 14:39; Admin Dose 0.63 MG; Start 01/10/19 at 14:00 Prednisone (Prednisone) 5 mg DAILY PO Last administered on 01/26/19 09:00; Admin Dose 5 MG; Start 01/11/19 at 09:00 Fluticasone/ Vilanterol (Breo Ellipta 200-25 Mcg Inh) 1 inh DAILY INH Last administered on 01/26/19 09:01; Admin Dose 1 INH; Start 01/11/19 at 09:00 Tiotropium [place] (Spiriva) 1 inh DAILY INH Last administered on 01/26/19 09:00; Admin Dose 1 INH; Start 01/11/19 at 09:00 Guaifenesin (Mucinex) 600 mg BID PO Last administered on 01/26/19 09:00; Admin Dose 600 MG; Start 01/12/19 at 09:00 Acetylcysteine (Mucomyst) 2 ml Q6H RESP THERAPY NEB Last administered on 01/26/19 14:39; Admin Dose 2 ML; Start 01/12/19 at 02:00 Diazepam (Valium) 2 mg HS PRN PO for agitation, pulling on line Last administered on 01/14/19 21:29; Admin Dose 2 MG; Start 01/14/19 at 17:30 Mupirocin (Bactroban) 1 applic BID TOP Last administered on 01/26/19 09:14; Admin Dose 1 APPLIC; Start 01/16/19 at 09:00 Bupropion HCl (Wellbutrin Sr) 100 mg BID PO Last administered on 01/26/19 09:01; Admin Dose 100 MG; Start 01/16/19 at 09:00 Escitalopram Oxalate (Lexapro) 5 mg DAILY PO Last administered on 01/26/19 09:01; Admin Dose 5 MG; Start 01/17/19 at 09:00 Metoprolol Tartrate (Lopressor) 25 mg BID PO Last administered on 01/26/19 09:01; Admin Dose 25 MG; Start 01/23/19 at 09:00 Megestrol Acetate (Megace Susp) 400 mg AM PO Last administered on 01/26/19 09:02; Admin Dose 400 MG; Start 01/23/19 at 14:00 ARNOLD TAM MD Jan 26, 2019 16:14
--- NOTE | 2019-01-26 16:15 | PN ---
Date/Time of Note Date/Time of Note DATE: 01/26/19 TIME: 16:15 Assessment/Plan VTE Prophylaxis Risk score (from Nsg)>0 risk: 3 SCD applied (from Nsg): Yes Pharmacological prophylaxis: apixaban Lines/Catheters IV Catheter Type (from Nrsg): Saline Lock Central line still needed: No Urinary Cath still in place: No Assessment/Plan Assessment/Plan 1. very slow to recovery/ depression/ dementia 2. anemia 3. s/p bacteremia/ uti 4. slight inc wbc--most likely due to pred 5. copd 6. ckd II 7. htn/ chf ---inc bp med dose ---must inc po jose raul intake ---must inc phys rx exercise ---aru vs snf after-care plan Result Diagram: 01/25/1933401/25/19334 Results 24hrs Laboratory Tests Test 01/26/19 06:05 Lab Scanned Report BLOOD TRANSFUSION Subjective 24 Hr Interval Summary Free Text/Dictation in bed, no complaints Exam/Review of Systems Exam Vitals Vital Signs Date Temp Pulse Resp B/P (MAP) Pulse Ox O2 O2 Flow FiO2 Time Delivery Rate 01/26/19 2.0 14:39 01/26/19 72 18 98 Nasal 14:39 Cannula 01/26/19 99.0 140/77 08:40 (98) 01/23/19 21 01:35 Intake and Output 01/25/19 01/25/19 01/26/19 1515:00 23:00 07:00 IntakeIntake Total 400 ml OutputOutput Total 300 ml 0 ml BalanceBalance -300 ml 400 ml Exam awake, ate 50% per nurse, irreg irreg, dec bs bibasilar, no c/c/e Results Results 24hrs Laboratory Tests Test 01/26/19 06:05 Lab Scanned Report BLOOD TRANSFUSION Medications Medication Current Medications IV Flush (NS 3 ml) 3 ml PER PROTOCOL IV ; Start 01/09/19 at 21:30 Ondansetron HCl (Zofran Inj) 4 mg Q6H PRN IV NAUSEA/VOMITING; Start 01/09/19 at 21:30 Clonidine (Catapres) 0.1 mg TID PRN PO sbp >170; Start 01/09/19 at 22:00 Acetaminophen (Tylenol Tab) 650 mg TID PRN PO MILD PAIN(1-3)OR ELEVATED TEMP Last administered on 01/24/19 14:30; Admin Dose 650 MG; Start 01/09/19 at 22:00 Apixaban (Eliquis) 5 mg BID PO Last administered on 01/26/19 09:01; Admin Dose 5 MG; Start 01/10/19 at 09:00 Aripiprazole (Abilify) 5 mg DAILY PO Last administered on 01/26/19 10:31; Admin Dose 5 MG; Start 01/10/19 at 09:00 Pantoprazole (Protonix Tab) 40 mg AC BREAKFAST PO Last administered on 01/26/19 09:01; Admin Dose 40 MG; Start 01/10/19 at 07:00 Diltiazem HCl (Cardizem Cd) 120 mg DAILY PO Last administered on 01/26/19 09:01; Admin Dose 120 MG; Start 01/10/19 at 09:00 [facility] This patient sawyer... PRN PRN XX WOUND CARE; Start 01/10/19 at 07:30 Levalbuterol (Xopenex Neb) 0.63 mg Q6H RESP THERAPY HHN Last administered on 01/26/19 14:39; Admin Dose 0.63 MG; Start 01/10/19 at 14:00 Prednisone (Prednisone) 5 mg DAILY PO Last administered on 01/26/19 09:00; Admin Dose 5 MG; Start 01/11/19 at 09:00 Fluticasone/ Vilanterol (Breo Ellipta 200-25 Mcg Inh) 1 inh DAILY INH Last administered on 01/26/19 09:01; Admin Dose 1 INH; Start 01/11/19 at 09:00 Tiotropium [place] (Spiriva) 1 inh DAILY INH Last administered on 01/26/19 09:00; Admin Dose 1 INH; Start 01/11/19 at 09:00 Guaifenesin (Mucinex) 600 mg BID PO Last administered on 01/26/19 09:00; Admin Dose 600 MG; Start 01/12/19 at 09:00 Acetylcysteine (Mucomyst) 2 ml Q6H RESP THERAPY NEB Last administered on 01/26/19 14:39; Admin Dose 2 ML; Start 01/12/19 at 02:00 Diazepam (Valium) 2 mg HS PRN PO for agitation, pulling on line Last administered on 01/14/19 21:29; Admin Dose 2 MG; Start 01/14/19 at 17:30 Mupirocin (Bactroban) 1 applic BID TOP Last administered on 01/26/19 09:14; Admin Dose 1 APPLIC; Start 01/16/19 at 09:00 Bupropion HCl (Wellbutrin Sr) 100 mg BID PO Last administered on 01/26/19 09:01; Admin Dose 100 MG; Start 01/16/19 at 09:00 Escitalopram Oxalate (Lexapro) 5 mg DAILY PO Last administered on 01/26/19 09:01; Admin Dose 5 MG; Start 01/17/19 at 09:00 Metoprolol Tartrate (Lopressor) 25 mg BID PO Last administered on 01/26/19 09:01; Admin Dose 25 MG; Start 01/23/19 at 09:00 Megestrol Acetate (Megace Susp) 400 mg AM PO Last administered on 01/26/19 09:02; Admin Dose 400 MG; Start 01/23/19 at 14:00 ARNOLD TAM MD Jan 26, 2019 16:15
[2019-01-26 19:30] VITALS: BP 144/65; PULSE 76; RESP 18
[2019-01-26] MEDS: NYSTATIN 30 GM POWDER BTL TOP SCH (21:36)
[2019-01-27 02:25] VITALS: BP 162/76; PULSE 74; RESP 17
[2019-01-27] MEDS: LEVALBUTEROL (NEB) 0.63 MG/3 ML AMP HHN SCH ×4 (02:46→19:24)
[2019-01-27] MEDS: ACETYLCYSTEINE 20% 4 ML VIAL NEB SCH ×4 (02:47→19:25)
[2019-01-27 08:41] VITALS: BP 121/59; PULSE 73; RESP 18
[2019-01-27] MEDS: MEGESTROL (40 MG/ML) 10ML CUP PO SCH (08:41)
[2019-01-27] MEDS: BUPROPION (SR) 100 MG TAB PO SCH ×2 (08:41→21:00)
[2019-01-27] MEDS: GUAIFENESIN LA 600 MG TABSR PO SCH ×2 (08:41→21:00)
[2019-01-27] MEDS: TIOTROPIUM 18 MCG CAPSULE INHA DEV INH SCH ×2 (08:41→09:00)
[2019-01-27] MEDS: FLUTICASONE/VILANTEROL 200-25 INH DEVICE INH SCH ×2 (08:41→09:00)
[2019-01-27] MEDS: ARIPIPRAZOLE 5 MG TAB PO SCH (08:42)
[2019-01-27] MEDS: APIXABAN 5 MG TABLET PO SCH ×2 (08:43→21:00)
[2019-01-27] MEDS: predniSONE 5 MG TAB PO SCH (08:43)
[2019-01-27] MEDS: METOPROLOL 25 MG TAB PO SCH ×2 (08:43→21:00)
[2019-01-27] MEDS: DILTIAZEM (CD) 120 MG CAP PO SCH (08:43)
[2019-01-27] MEDS: ESCITALOPRAM 10 MG TAB PO SCH (08:43)
[2019-01-27] MEDS: NYSTATIN 30 GM POWDER BTL TOP SCH ×2 (08:45→22:05)
[2019-01-27] MEDS: MUPIROCIN 2% 22 GM OINT TOP SCH ×2 (08:45→22:05)
[2019-01-27] MEDS: BALSAM PERU/CASTOR OIL 60 GM TUBE TOP SCH (08:46)
[2019-01-27 15:06] VITALS: BP 124/62; PULSE 74; RESP 18
[2019-01-27 20:30] VITALS: BP 104/55; PULSE 80; RESP 18
--- NOTE | 2019-01-27 22:56 | PN ---
Date/Time of Note Date/Time of Note DATE: 01/27/19 TIME: 22:36 Assessment/Plan VTE Prophylaxis Risk score (from [facility])>0 risk: 12 SCD applied (from [facility]): Yes Pharmacological prophylaxis: apixaban Lines/Catheters IV Catheter Type (from [facility]): Saline Lock Urinary Cath still in place: No Assessment/Plan Problems: (1) Leukocytosis Status: Acute Comment: Maybe due to blood transfusion reaction . Will galo in am. Anticipate discharge to home if WBC improves. If WBC worsens will restart work up for infections. (2) Anemia Status: Chronic Comment: improved after 2 units PRBC's . (3) Weakness Status: Chronic Comment: Patient's family request outpatient physical therapy after patient is discharged to home. But will need to check with physical therapy regarding patient's ability to transfer with assist before going home. (4) Depression Status: Chronic Comment: Will change wellbutrin to XL formulation since patient prefers to take all his meds once a day in am. (5) Anxiety Status: Chronic Comment: Patient has not had to use diazepam for past week for nighttime agitations. (6) Lethargy Status: Acute Comment: Family reports fluctuating levels of alertness at home. Will keep reducing meds slowly as tolerated. Stop abilify today. (7) Dehydration Status: Acute Comment: Mild increased azotemia probably due to poor po intake from lethargy. Hydrate gently with D5 1/2 NS. 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 (9) Sacral decubitus ulcer, stage III Status: Chronic Comment: Continue local wound care. 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 (11) COPD (chronic obstructive pulmonary disease) Status: Chronic (12) CHF (congestive heart failure) Status: Chronic (13) UTI (urinary tract infection) Status: Resolved Qualifiers: Urinary tract infection type: acute cystitis Hematuria presence: without hematuria Qualified Codes: N30.00 - Acute cystitis without hematuria (14) Bacteremia Status: Resolved (15) Thrombocytopenia Status: Resolved Result Diagram: 01/27/19 1324 01/27/19 1324 Results 24hrs Laboratory Tests Test 01/27/19 13:24 White Blood Count 11.8 H Red Blood Count 3.91 L Hemoglobin 11.0 L Hematocrit 36.4 L Mean Corpuscular Volume 93.1 Mean Corpuscular Hemoglobin 28.1 L Mean Corpuscular Hemoglobin Concent 30.2 L Red Cell Distribution Width 16.8 H Platelet Count 216 Mean Platelet Volume 11.3 H Immature Granulocytes % 0.500 H Neutrophils % 81.9 H Lymphocytes % 8.3 L Monocytes % 8.0 Eosinophils % 0.8 Basophils % 0.5 Nucleated Red Blood Cells % 0.0 Immature Granulocytes # 0.060 H Neutrophils # 9.7 H Lymphocytes # 1.0 Monocytes # 0.9 Eosinophils # 0.1 Basophils # 0.1 Nucleated Red Blood Cells # 0.0 Sodium Level 145 H Potassium Level 4.8 Chloride Level 111 H Carbon Dioxide Level 28 Anion Gap 6 Blood Urea Nitrogen 34 H Creatinine 1.58 H Est Glomerular Filtrat Rate mL/min Glucose Level 141 Calcium Level 9.9 Subjective 24 Hr Interval Summary Free Text/Dictation Patient appears alert and responsive, no complaints. Exam/Review of Systems Exam Vitals Vital Signs Date Temp Pulse Resp B/P (MAP) Pulse Ox O2 O2 Flow FiO2 Time Delivery Rate 01/27/19 98.5 80 18 104/55 93 20:30 (71) 01/27/19 Nasal 3.0 19:25 Cannula Intake and Output 01/26/19 01/26/19 01/27/19 1515:00 23:00 07:00 IntakeIntake Total 120 ml OutputOutput Total 300 ml 300 ml BalanceBalance -300 ml -180 ml Constitutional: alert Psych: confusion Respiratory: clear to auscultation Cardiovascular: regular rate and rhythm Gastrointestinal: soft, other (ostomy sites clean) Musculoskeletal: nl extremities to inspection Skin: other (mild erythema at groins bilaterally.) Results Results 24hrs Laboratory Tests Test 01/27/19 13:24 White Blood Count 11.8 H Red Blood Count 3.91 L Hemoglobin 11.0 L Hematocrit 36.4 L Mean Corpuscular Volume 93.1 Mean Corpuscular Hemoglobin 28.1 L Mean Corpuscular Hemoglobin Concent 30.2 L Red Cell Distribution Width 16.8 H Platelet Count 216 Mean Platelet Volume 11.3 H Immature Granulocytes % 0.500 H Neutrophils % 81.9 H Lymphocytes % 8.3 L Monocytes % 8.0 Eosinophils % 0.8 Basophils % 0.5 Nucleated Red Blood Cells % 0.0 Immature Granulocytes # 0.060 H Neutrophils # 9.7 H Lymphocytes # 1.0 Monocytes # 0.9 Eosinophils # 0.1 Basophils # 0.1 Nucleated Red Blood Cells # 0.0 Sodium Level 145 H Potassium Level 4.8 Chloride Level 111 H Carbon Dioxide Level 28 Anion Gap 6 Blood Urea Nitrogen 34 H Creatinine 1.58 H Est Glomerular Filtrat Rate mL/min Glucose Level 141 Calcium Level 9.9 Medications Medication Current Medications IV Flush (NS 3 ml) 3 ml PER PROTOCOL IV ; Start 01/09/19 at 21:30 Ondansetron HCl (Zofran Inj) 4 mg Q6H PRN IV NAUSEA/VOMITING; Start 01/09/19 at 21:30 Clonidine (Catapres) 0.1 mg TID PRN PO sbp >170; Start 01/09/19 at 22:00 Acetaminophen (Tylenol Tab) 650 mg TID PRN PO MILD PAIN(1-3)OR ELEVATED TEMP Last administered on 01/24/19 14:30; Admin Dose 650 MG; Start 01/09/19 at 22:00 Apixaban (Eliquis) 5 mg BID PO Last administered on 01/27/19 08:43; Admin Dose 5 MG; Start 01/10/19 at 09:00 Aripiprazole (Abilify) 5 mg DAILY PO Last administered on 01/27/19 08:42; Admin Dose 5 MG; Start 01/10/19 at 09:00 Pantoprazole (Protonix Tab) 40 mg AC BREAKFAST PO Last administered on 9at 09:01; Admin Dose 40 MG; Start 01/10/19 at 07:00 Diltiazem HCl (Cardizem Cd) 120 mg DAILY PO Last administered on 01/27/19 08:43; Admin Dose 120 MG; Start 01/10/19 at 09:00 Miscellaneous Information (Pending Santyl Order For Wound Care) This patient sawyer... PRN PRN XX WOUND CARE; Start 01/10/19 at 07:30 Levalbuterol (Xopenex Neb) 0.63 mg Q6H RESP THERAPY HHN Last administered on 01/27/19 19:24; Admin Dose 0.63 MG; Start 01/10/19 at 14:00 Prednisone (Prednisone) 5 mg DAILY PO Last administered on 01/27/19 08:43; Admin Dose 5 MG; Start 01/11/19 at 09:00 Fluticasone/ Vilanterol (Breo Ellipta 200-25 Mcg Inh) 1 inh DAILY INH Last administered on 01/26/19 09:01; Admin Dose 1 INH; Start 01/11/19 at 09:00 Tiotropium [place] (Spiriva) 1 inh DAILY INH Last administered on 01/26/19 09:00; Admin Dose 1 INH; Start 01/11/19 at 09:00 Guaifenesin (Mucinex) 600 mg BID PO Last administered on 01/27/19 08:41; Admin Dose 600 MG; Start 01/12/19 at 09:00 Acetylcysteine (Mucomyst) 2 ml Q6H RESP THERAPY NEB Last administered on 01/27/19 19:25; Admin Dose 2 ML; Start 01/12/19 at 02:00 Diazepam (Valium) 2 mg HS PRN PO for agitation, pulling on line Last administered on 01/14/19 21:29; Admin Dose 2 MG; Start 01/14/19 at 17:30 Mupirocin (Bactroban) 1 applic BID TOP Last administered on 01/27/19 22:05; Admin Dose 1 APPLIC; Start 01/16/19 at 09:00 Bupropion HCl (Wellbutrin Sr) 100 mg BID PO Last administered on 01/27/19 08:41; Admin Dose 100 MG; Start 01/16/19 at 09:00 Escitalopram Oxalate (Lexapro) 5 mg DAILY PO Last administered on 01/27/19 08:43; Admin Dose 5 MG; Start 01/17/19 at 09:00 Metoprolol Tartrate (Lopressor) 25 mg BID PO Last administered on 01/27/19 08:43; Admin Dose 25 MG; Start 01/23/19 at 09:00 Megestrol Acetate (Megace Susp) 400 mg AM PO Last administered on 01/27/19 08:41; Admin Dose 400 MG; Start 01/23/19 at 14:00 Nystatin (Nystatin Powder) 1 applic BID TOP Last administered on 01/27/19 22:05; Admin Dose 1 APPLIC; Start 01/26/19 at 21:00 BREEZY FRIAS MD Jan 27, 2019 22:50
[2019-01-27] MEDS: D5W-0.45 NACL + KCL 20 MEQ 1,000 ML IV SCH (23:43)
[2019-01-28] MEDS: ACETYLCYSTEINE 20% 4 ML VIAL NEB SCH ×5 (02:00→20:07)
[2019-01-28 02:17] VITALS: BP 141/56; PULSE 71; RESP 18
[2019-01-28] MEDS: LEVALBUTEROL (NEB) 0.63 MG/3 ML AMP HHN SCH ×4 (02:42→20:07)
[2019-01-28 08:14] VITALS: BP 128/51; PULSE 81; RESP 20
[2019-01-28] MEDS: ESCITALOPRAM 10 MG TAB PO SCH (08:57)
[2019-01-28] MEDS: BUPROPION (XL) 150 MG TAB PO SCH (08:57)
[2019-01-28] MEDS: APIXABAN 5 MG TABLET PO SCH ×2 (08:57→20:14)
[2019-01-28] MEDS: PANTOPRAZOLE (EC) 40 MG TAB PO SCH (08:57)
[2019-01-28] MEDS: MEGESTROL (40 MG/ML) 10ML CUP PO SCH (08:58)
[2019-01-28] MEDS: predniSONE 2.5 MG TAB PO SCH (08:58)
[2019-01-28] MEDS: GUAIFENESIN LA 600 MG TABSR PO SCH ×2 (08:58→20:14)
[2019-01-28] MEDS: DILTIAZEM (CD) 120 MG CAP PO SCH (08:58)
[2019-01-28] MEDS: METOPROLOL (XL) 25 MG TAB PO SCH (08:58)
[2019-01-28] MEDS: FLUTICASONE/VILANTEROL 200-25 INH DEVICE INH SCH (08:59)
[2019-01-28] MEDS: NYSTATIN 30 GM POWDER BTL TOP SCH ×2 (09:00→20:24)
[2019-01-28] MEDS: BALSAM PERU/CASTOR OIL 60 GM TUBE TOP SCH (09:00)
[2019-01-28] MEDS: D5W-0.45 NACL + KCL 20 MEQ 1,000 ML IV SCH ×2 (11:06→20:14)
[2019-01-28] MEDS: TIOTROPIUM 18 MCG CAPSULE INHA DEV INH SCH (11:30)
[2019-01-28 14:44] VITALS: BP 126/60; PULSE 80; RESP 20
--- NOTE | 2019-01-28 19:26 | CONS ---
Consult Date/Type/Reason Admit Date/Time Jan 10, 2019 at 11:21 Initial Consult Date 01/13/19 Date/Time of Note DATE: 01/28/19 TIME: 19:26 Objective Vitals Vital Signs Date Temp Pulse Resp B/P (MAP) Pulse Ox O2 O2 Flow FiO2 Time Delivery Rate 01/28/19 98.2 80 20 126/60 95 Nasal 2.0 14:44 (82) Cannula Intake and Output 01/27/19 01/27/19 01/28/19 1515:00 23:00 07:00 IntakeIntake Total 200 ml 400 ml 600 ml OutputOutput Total 0 ml 200 ml 150 ml BalanceBalance 200 ml 200 ml 450 ml Results/Medications Result Diagram: 01/28/19 0548 01/28/19 0548 Results 24 hrs Laboratory Tests Test 01/28/19 05:48 White Blood Count 12.2 H Red Blood Count 4.14 L Hemoglobin 11.4 L Hematocrit 38.2 L Mean Corpuscular Volume 92.3 Mean Corpuscular Hemoglobin 27.5 L Mean Corpuscular Hemoglobin Concent 29.8 L Red Cell Distribution Width 17.0 H Platelet Count 173 Mean Platelet Volume 12.7 H Immature Granulocytes % 0.600 H Neutrophils % 76.5 Lymphocytes % 10.6 L Monocytes % 10.5 Eosinophils % 1.3 Basophils % 0.5 Nucleated Red Blood Cells % 0.0 Immature Granulocytes # 0.070 H Neutrophils # 9.4 H Lymphocytes # 1.3 Monocytes # 1.3 H Eosinophils # 0.2 Basophils # 0.1 Nucleated Red Blood Cells # 0.0 Erythrocyte Sedimentation Rate 55 H Sodium Level 146 H Potassium Level 4.6 Chloride Level 109 Carbon Dioxide Level 27 Anion Gap 10 Blood Urea Nitrogen 41 H Creatinine 1.65 H Est Glomerular Filtrat Rate mL/min Glucose Level 108 Calcium Level 9.6 Total Bilirubin 0.2 Direct Bilirubin 0.00 Indirect Bilirubin 0.2 Aspartate Amino Transf (AST/SGOT) 30 Alanine Aminotransferase (ALT/SGPT) 45 Alkaline Phosphatase 112 Total Protein 7.2 Albumin 3.5 Globulin 3.70 H Albumin/Globulin Ratio 0.94 Home Meds Reported Medications Fluticasone/Vilanterol (Breo Ellipta 200-25 Mcg INH) 1 Each Blst.w.dev, 1 PUFF INHALATION DAILY, #1 INHALER 01/09/19 Prednisone* (Prednisone*) 5 Mg Tab, 5 MG PO DAILY, TAB TAKE 1 OR 2 TAB NEEDED 01/09/19 Aripiprazole* (Abilify*) 5 Mg Tab, 5 MG PO DAILY, #30 TAB 01/09/19 Diltiazem Hcl (Diltiazem) 120 Mg Capsr, 120 MG PO QAM, #30 CAP 01/09/19 Pantoprazole* (Pantoprazole*) 40 Mg Tablet.dr, 40 MG PO AC BREAKFAST, TAB 01/09/19 Mirtazapine* (Mirtazapine*) 15 Mg Tablet, 15 MG PO HS, TAB 01/09/19 Metoprolol Tartrate* (Lopressor*) 50 Mg Tab, 50 MG PO BID, #60 TAB 01/09/19 Docusate Sodium* (Colace*) 100 Mg Capsule, 100 MG PO QHS, #30 CAP 01/09/19 Diazepam* (Diazepam*) 2 Mg Tablet, 2 MG PO QHS, TAB 01/09/19 Atorvastatin Calcium* (Atorvastatin Calcium*) 20 Mg Tablet, 20 MG PO QHS, #30 TAB 01/09/19 Acetaminophen* (Acetaminophen*) 325 Mg Tablet, 650 MG PO NEEDED PRN for PAIN AND OR ELEVATED TEMP, #30 TAB 01/09/19 Salmeterol Xinaf-Fluticasone* (Advair*) 500/50 Diskus Inhaler, 1 INH INHALATION BID, #1 INHALER 01/09/19 Calcium Carbonate* (Calcium Carbonate*) 600 MG Ca Tab, 600 MG PO BID, TAB 01/09/19 Apixaban* (Eliquis*) 5 Mg Tablet, 5 MG PO BID, TAB 01/09/19 Medications Current Medications IV Flush (NS 3 ml) 3 ml PER PROTOCOL IV ; Start 01/09/19 at 21:30 Ondansetron HCl (Zofran Inj) 4 mg Q6H PRN IV NAUSEA/VOMITING; Start 01/09/19 at 21:30 Clonidine (Catapres) 0.1 mg TID PRN PO sbp >170; Start 01/09/19 at 22:00 Acetaminophen (Tylenol Tab) 650 mg TID PRN PO MILD PAIN(1-3)OR ELEVATED TEMP Last administered on 01/24/19at 14:30; Admin Dose 650 MG; Start 01/09/19 at 22:00 Apixaban (Eliquis) 5 mg BID PO Last administered on 01/28/19 08:57; Admin Dose 5 MG; Start 01/10/19 at 09:00 Pantoprazole (Protonix Tab) 40 mg AC BREAKFAST PO Last administered on 01/28/19 08:57; Admin Dose 40 MG; Start 01/10/19 at 07:00 Diltiazem HCl (Cardizem Cd) 120 mg DAILY PO Last administered on 01/28/19 08:58; Admin Dose 120 MG; Start 01/10/19 at 09:00 Miscellaneous Information (Pending Santyl Order For Wound Care) This patient sawyer... PRN PRN XX WOUND CARE; Start 01/10/19 at 07:30 Levalbuterol (Xopenex Neb) 0.63 mg Q6H RESP THERAPY HHN Last administered on 01/28/19 12:59; Admin Dose 0.63 MG; Start 01/10/19 at 14:00 Fluticasone/ Vilanterol (Breo Ellipta 200-25 Mcg Inh) 1 inh DAILY INH Last administered on 01/28/19 08:59; Admin Dose 1 INH; Start 01/11/19 at 09:00 Tiotropium [place] (Spiriva) 1 inh DAILY INH Last administered on 01/28/19 11:30; Admin Dose 1 INH; Start 01/11/19 at 09:00 Guaifenesin (Mucinex) 600 mg BID PO Last administered on 01/28/19 08:58; Admin Dose 600 MG; Start 01/12/19 at 09:00 Acetylcysteine (Mucomyst) 2 ml Q6H RESP THERAPY NEB Last administered on 01/27/19 19:25; Admin Dose 2 ML; Start 01/12/19 at 02:00 Diazepam (Valium) 2 mg HS PRN PO for agitation, pulling on line Last administered on 01/14/19 21:29; Admin Dose 2 MG; Start 01/14/19 at 17:30 Escitalopram Oxalate (Lexapro) 5 mg DAILY PO Last administered on 01/28/19 08:57; Admin Dose 5 MG; Start 01/17/19 at 09:00 Megestrol Acetate (Megace Susp) 400 mg AM PO Last administered on 01/28/19 08:58; Admin Dose 400 MG; Start 01/23/19 at 14:00 Nystatin (Nystatin Powder) 1 applic BID TOP Last administered on 01/28/19 09:00; Admin Dose 1 APPLIC; Start 01/26/19 at 21:00 Potassium Chloride/Dextrose/ Sod Cl 1,000 ml @ 100 mls/hr Q10H IV Last administered on 01/28/19 11:06; Admin Dose 100 MLS/HR; Start 01/27/19 at 23:00 Bupropion HCl (Wellbutrin Xl) 150 mg DAILY PO Last administered on 01/28/19 08:57; Admin Dose 150 MG; Start 01/28/19 at 09:00 Prednisone (Prednisone) 2.5 mg DAILY PO Last administered on 01/28/19 08:58; Admin Dose 2.5 MG; Start 01/28/19 at 09:00 Metoprolol Succinate (Toprol Xl) 25 mg DAILY PO Last administered on 01/28/19 08:58; Admin Dose 25 MG; Start 01/28/19 at 09:00 ARNOLD TAM MD Jan 28, 2019 19:26
[2019-01-28 20:00] VITALS: BP 143/54; PULSE 81
--- NOTE | 2019-01-28 21:56 | PN ---
Date/Time of Note Date/Time of Note DATE: 01/28/19 TIME: 21:53 Assessment/Plan VTE Prophylaxis Risk score (from [facility])>0 risk: 12 SCD applied (from [facility]): Yes Pharmacological prophylaxis: apixaban Lines/Catheters IV Catheter Type (from [facility]): Saline Lock Urinary Cath still in place: No Assessment/Plan Assessment/Plan (1) Leukocytosis Status: Acute Comment: Recheck WBC is worse, will work up for infections. (2) Anemia Status: Chronic Comment: improved after 2 units PRBC's . (3) Weakness Status: Chronic Comment: Patient's family request outpatient physical therapy after patient is discharged to home. But will need to check with physical therapy regarding patient's ability to transfer with assist before going home. (4) Depression Status: Chronic Comment: Will change wellbutrin to XL formulation since patient prefers to take all his meds once a day in am. (5) Anxiety Status: Chronic Comment: Patient has not had to use diazepam for past week for nighttime brendan tations. (6) Lethargy Status: Acute Comment: Family reports fluctuating levels of alertness at home. Appears more alert after stopping abilify . (7) Dehydration Status: Acute Comment: Mild increased azotemia probably due to poor po intake from lethargy. Hydrate gently with D5 1/2 NS. 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 (9) Sacral decubitus ulcer, stage III Status: Chronic Comment: Continue local wound care. 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 (11) COPD (chronic obstructive pulmonary disease) Status: Chronic (12) CHF (congestive heart failure) Status: Chronic (13) UTI (urinary tract infection) Status: Resolved Qualifiers: Urinary tract infection type: acute cystitis Hematuria presence: without hematuria Qualified Codes: N30.00 - Acute cystitis without hematuria (14) Bacteremia Status: Resolved (15) Thrombocytopenia Status: Resolved Result Diagram: 01/28/19 0548 01/28/19 0548 Results 24hrs Laboratory Tests Test 01/28/19 05:48 White Blood Count 12.2 H Red Blood Count 4.14 L Hemoglobin 11.4 L Hematocrit 38.2 L Mean Corpuscular Volume 92.3 Mean Corpuscular Hemoglobin 27.5 L Mean Corpuscular Hemoglobin Concent 29.8 L Red Cell Distribution Width 17.0 H Platelet Count 173 Mean Platelet Volume 12.7 H Immature Granulocytes % 0.600 H Neutrophils % 76.5 Lymphocytes % 10.6 L Monocytes % 10.5 Eosinophils % 1.3 Basophils % 0.5 Nucleated Red Blood Cells % 0.0 Immature Granulocytes # 0.070 H Neutrophils # 9.4 H Lymphocytes # 1.3 Monocytes # 1.3 H Eosinophils # 0.2 Basophils # 0.1 Nucleated Red Blood Cells # 0.0 Erythrocyte Sedimentation Rate 55 H Sodium Level 146 H Potassium Level 4.6 Chloride Level 109 Carbon Dioxide Level 27 Anion Gap 10 Blood Urea Nitrogen 41 H Creatinine 1.65 H Est Glomerular Filtrat Rate mL/min Glucose Level 108 Calcium Level 9.6 Total Bilirubin 0.2 Direct Bilirubin 0.00 Indirect Bilirubin 0.2 Aspartate Amino Transf (AST/SGOT) 30 Alanine Aminotransferase (ALT/SGPT) 45 Alkaline Phosphatase 112 Total Protein 7.2 Albumin 3.5 Globulin 3.70 H Albumin/Globulin Ratio 0.94 Subjective 24 Hr Interval Summary Constitutional: no complaints Exam/Review of Systems Exam Vitals Vital Signs Date Temp Pulse Resp B/P (MAP) Pulse Ox O2 O2 Flow FiO2 Time Delivery Rate 01/28/19 98.6 21:05 01/28/19 77 20 95 Nasal 2.0 20:08 Cannula 01/28/19 143/54 20:00 (83) Intake and Output 01/27/19 01/27/19 01/28/19 1515:00 23:00 07:00 IntakeIntake Total 200 ml 400 ml 600 ml OutputOutput Total 0 ml 200 ml 150 ml BalanceBalance 200 ml 200 ml 450 ml Exam more alert, eating better. Constitutional: alert Head: normocephalic Respiratory: clear to auscultation Cardiovascular: regular rate and rhythm Gastrointestinal: soft, non-tender Musculoskeletal: nl extremities to inspection Skin: other (mild redness sacral area, no skin breakdown) Results Results 24hrs Laboratory Tests Test 01/28/19 05:48 White Blood Count 12.2 H Red Blood Count 4.14 L Hemoglobin 11.4 L Hematocrit 38.2 L Mean Corpuscular Volume 92.3 Mean Corpuscular Hemoglobin 27.5 L Mean Corpuscular Hemoglobin Concent 29.8 L Red Cell Distribution Width 17.0 H Platelet Count 173 Mean Platelet Volume 12.7 H Immature Granulocytes % 0.600 H Neutrophils % 76.5 Lymphocytes % 10.6 L Monocytes % 10.5 Eosinophils % 1.3 Basophils % 0.5 Nucleated Red Blood Cells % 0.0 Immature Granulocytes # 0.070 H Neutrophils # 9.4 H Lymphocytes # 1.3 Monocytes # 1.3 H Eosinophils # 0.2 Basophils # 0.1 Nucleated Red Blood Cells # 0.0 Erythrocyte Sedimentation Rate 55 H Sodium Level 146 H Potassium Level 4.6 Chloride Level 109 Carbon Dioxide Level 27 Anion Gap 10 Blood Urea Nitrogen 41 H Creatinine 1.65 H Est Glomerular Filtrat Rate mL/min Glucose Level 108 Calcium Level 9.6 Total Bilirubin 0.2 Direct Bilirubin 0.00 Indirect Bilirubin 0.2 Aspartate Amino Transf (AST/SGOT) 30 Alanine Aminotransferase (ALT/SGPT) 45 Alkaline Phosphatase 112 Total Protein 7.2 Albumin 3.5 Globulin 3.70 H Albumin/Globulin Ratio 0.94 Medications Medication Current Medications IV Flush (NS 3 ml) 3 ml PER PROTOCOL IV ; Start 01/09/19 at 21:30 Ondansetron HCl (Zofran Inj) 4 mg Q6H PRN IV NAUSEA/VOMITING; Start 01/09/19 at 21:30 Clonidine (Catapres) 0.1 mg TID PRN PO sbp >170; Start 01/09/19 at 22:00 Acetaminophen (Tylenol Tab) 650 mg TID PRN PO MILD PAIN(1-3)OR ELEVATED TEMP Last administered on 01/24/19at 14:30; Admin Dose 650 MG; Start 01/09/19 at 22:00 Apixaban (Eliquis) 5 mg BID PO Last administered on 01/28/19at 20:14; Admin Dose 5 MG; Start 01/10/19 at 09:00 Pantoprazole (Protonix Tab) 40 mg AC BREAKFAST PO Last administered on 01/28/19 08:57; Admin Dose 40 MG; Start 01/10/19 at 07:00 Diltiazem HCl (Cardizem Cd) 120 mg DAILY PO Last administered on 01/28/19 08:58; Admin Dose 120 MG; Start 01/10/19 at 09:00 Miscellaneous Information (Pending [facility] Order For Wound Care) This patient sawyer... PRN PRN XX WOUND CARE; Start 01/10/19 at 07:30 Levalbuterol (Xopenex Neb) 0.63 mg Q6H RESP THERAPY HHN Last administered on 01/28/19 20:07; Admin Dose 0.63 MG; Start 01/10/19 at 14:00 Fluticasone/ Vilanterol (Breo Ellipta 200-25 Mcg Inh) 1 inh DAILY INH Last administered on 01/28/19 08:59; Admin Dose 1 INH; Start 01/11/19 at 09:00 Tiotropium [place] (Spiriva) 1 inh DAILY INH Last administered on 01/28/19 11:30; Admin Dose 1 INH; Start 01/11/19 at 09:00 Guaifenesin (Mucinex) 600 mg BID PO Last administered on 01/28/19 20:14; Admin Dose 600 MG; Start 01/12/19 at 09:00 Acetylcysteine (Mucomyst) 2 ml Q6H RESP THERAPY NEB Last administered on 01/28/19 20:07; Admin Dose 2 ML; Start 01/12/19 at 02:00 Diazepam (Valium) 2 mg HS PRN PO for agitation, pulling on line Last administered on 01/14/19 21:29; Admin Dose 2 MG; Start 01/14/19 at 17:30 Escitalopram Oxalate (Lexapro) 5 mg DAILY PO Last administered on 01/28/19 08:57; Admin Dose 5 MG; Start 01/17/19 at 09:00 Megestrol Acetate (Megace Susp) 400 mg AM PO Last administered on 01/28/19 08:58; Admin Dose 400 MG; Start 01/23/19 at 14:00 Nystatin (Nystatin Powder) 1 applic BID TOP Last administered on 01/28/19 20:24; Admin Dose 1 APPLIC; Start 01/26/19 at 21:00 Potassium Chloride/Dextrose/ Sod Cl 1,000 ml @ 100 mls/hr Q10H IV Last administered on 01/28/19 20:14; Admin Dose 100 MLS/HR; Start 01/27/19 at 23:00 Bupropion HCl (Wellbutrin Xl) 150 mg DAILY PO Last administered on 01/28/19 08:57; Admin Dose 150 MG; Start 01/28/19 at 09:00 Prednisone (Prednisone) 2.5 mg DAILY PO Last administered on 01/28/19at 08:58; Admin Dose 2.5 MG; Start 01/28/19 at 09:00 Metoprolol Succinate (Toprol Xl) 25 mg DAILY PO Last administered on 01/28/19at 08:58; Admin Dose 25 MG; Start 01/28/19 at 09:00 BREEZY FRIAS MD Jan 28, 2019 21:56
[2019-01-29 02:00] VITALS: BP 101/50; PULSE 71; RESP 17
[2019-01-29] MEDS: ACETYLCYSTEINE 20% 4 ML VIAL NEB SCH ×4 (02:00→20:25)
[2019-01-29] MEDS: LEVALBUTEROL (NEB) 0.63 MG/3 ML AMP HHN SCH ×4 (02:00→20:24)
[2019-01-29] MEDS: D5W-0.45 NACL + KCL 20 MEQ 1,000 ML IV SCH ×2 (05:19→16:37)
[2019-01-29] MEDS: PANTOPRAZOLE (EC) 40 MG TAB PO SCH (07:58)
[2019-01-29 08:00] VITALS: BP 130/88; PULSE 74; RESP 20
[2019-01-29] MEDS: FLUTICASONE/VILANTEROL 200-25 INH DEVICE INH SCH (08:02)
[2019-01-29] MEDS: ESCITALOPRAM 10 MG TAB PO SCH (08:02)
[2019-01-29] MEDS: BUPROPION (XL) 150 MG TAB PO SCH (08:03)
[2019-01-29] MEDS: DILTIAZEM (CD) 120 MG CAP PO SCH (08:07)
[2019-01-29] MEDS: APIXABAN 5 MG TABLET PO SCH ×2 (08:08→21:48)
[2019-01-29] MEDS: METOPROLOL (XL) 25 MG TAB PO SCH (08:08)
[2019-01-29] MEDS: MEGESTROL (40 MG/ML) 10ML CUP PO SCH (08:10)
[2019-01-29] MEDS: predniSONE 2.5 MG TAB PO SCH (08:11)
[2019-01-29] MEDS: GUAIFENESIN LA 600 MG TABSR PO SCH ×2 (08:14→21:48)
[2019-01-29] MEDS: NYSTATIN 30 GM POWDER BTL TOP SCH ×2 (08:15→21:49)
[2019-01-29] MEDS: BALSAM PERU/CASTOR OIL 60 GM TUBE TOP SCH (08:15)
[2019-01-29] MEDS: TIOTROPIUM 18 MCG CAPSULE INHA DEV INH SCH (08:18)
[2019-01-29 14:00] VITALS: BP 138/62; PULSE 76
--- NOTE | 2019-01-29 18:21 | PN ---
Date/Time of Note Date/Time of Note DATE: 01/29/19 TIME: 18:19 Assessment/Plan VTE Prophylaxis Risk score (from [facility] [place])>0 risk: 12 SCD applied (from [facility] [place]): Yes Pharmacological prophylaxis: apixaban Lines/Catheters IV Catheter Type (from [facility]): Peripheral IV Urinary Cath still in place: No Assessment/Plan Problems: (1) UTI (urinary tract infection) Status: Acute Comment: Start meropenem since patient has history of ESBL resistant organism. Qualifiers: Urinary tract infection type: acute cystitis Hematuria presence: without hematuria Qualified Codes: N30.00 - Acute cystitis without hematuria (2) Leukocytosis Status: Acute Comment: probably from UTI, will start IV antibiotics and galo in am. (3) Sacral decubitus ulcer, stage III Status: Resolved (4) Depression Status: Chronic (5) Hyperkalemia Status: Acute Comment: Probably due to KCL in IV Fluids, hold IVF and galo in am. (6) Encephalopathy Status: Acute Comment: May be worsening due to UTI. Treat infection and monitor mental status. (7) Anxiety and depression Status: Chronic Comment: stable on current meds with less sedation. (8) Weakness Status: Chronic Comment: Patient able to work better with physical therapy past few days. Able to transfer with minimal assists. (9) COPD (chronic obstructive pulmonary disease) Status: Chronic (10) CHF (congestive heart failure) Status: Chronic (11) Lethargy Status: Resolved Result Diagram: 01/29/19 1449 01/29/19 1449 Results 24hrs Laboratory Tests Test 01/29/19 00:05 01/29/19 14:49 Urine Color YELLOW Urine Clarity CLOUDY A Urine pH 5.0 Urine Specific [place] 1.018 Urine Ketones NEGATIVE Urine Nitrite NEGATIVE Urine Bilirubin NEGATIVE Urine Urobilinogen NEGATIVE Urine Leukocyte Esterase 3+ H Urine Microscopic RBC 4 Urine Microscopic WBC 177 H Urine Yeast (Budding) FEW A Urine Hemoglobin NEGATIVE Urine Glucose NEGATIVE Urine Total Protein 1+ H White Blood Count 13.7 H Red Blood Count 3.84 L Hemoglobin 10.8 L Hematocrit 35.4 L Mean Corpuscular Volume 92.2 Mean Corpuscular Hemoglobin 28.1 L Mean Corpuscular Hemoglobin Concent 30.5 L Red Cell Distribution Width 16.9 H Platelet Count 186 Mean Platelet Volume 11.9 H Immature Granulocytes % 0.400 Neutrophils % 80.7 H Lymphocytes % 8.6 L Monocytes % 9.3 Eosinophils % 0.9 Basophils % 0.1 Nucleated Red Blood Cells % 0.0 Immature Granulocytes # 0.060 H Neutrophils # 11.0 H Lymphocytes # 1.2 Monocytes # 1.3 H Eosinophils # 0.1 Basophils # 0.0 Nucleated Red Blood Cells # 0.0 Sodium Level 140 Potassium Level 5.6 H Chloride Level 109 Carbon Dioxide Level 23 Anion Gap 8 Blood Urea Nitrogen 31 H Creatinine 1.38 H Est Glomerular Filtrat Rate mL/min Glucose Level 105 Calcium Level 9.4 Subjective 24 Hr Interval Summary Free Text/Dictation Patient is awake and alert but confused. Exam/Review of Systems Exam Vitals Vital Signs Date Temp Pulse Resp B/P (MAP) Pulse Ox O2 O2 Flow FiO2 Time Delivery Rate 01/29/19 2.0 15:24 01/29/19 97.8 76 138/62 14:00 (87) 01/29/19 18 96 Nasal 13:27 Cannula Intake and Output 01/28/19 01/28/19 01/29/19 1515:00 23:00 07:00 IntakeIntake Total 1540 ml 1100 ml 1000 ml OutputOutput Total 450 ml 400 ml BalanceBalance 1540 ml 650 ml 600 ml Constitutional: alert Psych: confusion Head: normocephalic Eyes: nl conjunctiva ENMT: nl external ears & nose Neck: supple Respiratory: clear to auscultation Cardiovascular: regular rate and rhythm Gastrointestinal: soft, other Musculoskeletal: nl extremities to inspection Skin: other (sacral ulcer healed.) Results Results 24hrs Laboratory Tests Test 01/29/19 00:05 01/29/19 14:49 Urine Color YELLOW Urine Clarity CLOUDY A Urine pH 5.0 Urine Specific [place] 1.018 Urine Ketones NEGATIVE Urine Nitrite NEGATIVE Urine Bilirubin NEGATIVE Urine Urobilinogen NEGATIVE Urine Leukocyte Esterase 3+ H Urine Microscopic RBC 4 Urine Microscopic WBC 177 H Urine Yeast (Budding) FEW A Urine Hemoglobin NEGATIVE Urine Glucose NEGATIVE Urine Total Protein 1+ H White Blood Count 13.7 H Red Blood Count 3.84 L Hemoglobin 10.8 L Hematocrit 35.4 L Mean Corpuscular Volume 92.2 Mean Corpuscular Hemoglobin 28.1 L Mean Corpuscular Hemoglobin Concent 30.5 L Red Cell Distribution Width 16.9 H Platelet Count 186 Mean Platelet Volume 11.9 H Immature Granulocytes % 0.400 Neutrophils % 80.7 H Lymphocytes % 8.6 L Monocytes % 9.3 Eosinophils % 0.9 Basophils % 0.1 Nucleated Red Blood Cells % 0.0 Immature Granulocytes # 0.060 H Neutrophils # 11.0 H Lymphocytes # 1.2 Monocytes # 1.3 H Eosinophils # 0.1 Basophils # 0.0 Nucleated Red Blood Cells # 0.0 Sodium Level 140 Potassium Level 5.6 H Chloride Level 109 Carbon Dioxide Level 23 Anion Gap 8 Blood Urea Nitrogen 31 H Creatinine 1.38 H Est Glomerular Filtrat Rate mL/min Glucose Level 105 Calcium Level 9.4 Medications Medication Current Medications IV Flush (NS 3 ml) 3 ml PER PROTOCOL IV ; Start 01/09/19 at 21:30 Ondansetron HCl (Zofran Inj) 4 mg Q6H PRN IV NAUSEA/VOMITING; Start 01/09/19 at 21:30 Clonidine (Catapres) 0.1 mg TID PRN PO sbp >170; Start 01/09/19 at 22:00 Acetaminophen (Tylenol Tab) 650 mg TID PRN PO MILD PAIN(1-3)OR ELEVATED TEMP Last administered on 01/24/19 14:30; Admin Dose 650 MG; Start 01/09/19 at 22:00 Apixaban (Eliquis) 5 mg BID PO Last administered on 01/29/19 08:08; Admin Dose 5 MG; Start 01/10/19 at 09:00 Pantoprazole (Protonix Tab) 40 mg AC BREAKFAST PO Last administered on 01/29/19 07:58; Admin Dose 40 MG; Start 01/10/19 at 07:00 Diltiazem HCl (Cardizem Cd) 120 mg DAILY PO Last administered on 01/29/19 08:07; Admin Dose 120 MG; Start 01/10/19 at 09:00 Miscellaneous Information (Pending Santyl Order For Wound Care) This patient sawyer... PRN PRN XX WOUND CARE; Start 01/10/19 at 07:30 Levalbuterol (Xopenex Neb) 0.63 mg Q6H RESP THERAPY HHN Last administered on 01/29/19 13:15; Admin Dose 0.63 MG; Start 01/10/19 at 14:00 Fluticasone/ Vilanterol (Breo Ellipta 200-25 Mcg Inh) 1 inh DAILY INH Last administered on 01/29/19 08:02; Admin Dose 1 INH; Start 01/11/19 at 09:00 Tiotropium [place] (Spiriva) 1 inh DAILY INH Last administered on 01/29/19 08:18; Admin Dose 1 INH; Start 01/11/19 at 09:00 Guaifenesin (Mucinex) 600 mg BID PO Last administered on 01/29/19 08:14; Admin Dose 600 MG; Start 01/12/19 at 09:00 Acetylcysteine (Mucomyst) 2 ml Q6H RESP THERAPY NEB Last administered on 01/29/19 13:15; Admin Dose 2 ML; Start 01/12/19 at 02:00 Diazepam (Valium) 2 mg HS PRN PO for agitation, pulling on line Last administered on 01/14/19 21:29; Admin Dose 2 MG; Start 01/14/19 at 17:30 Escitalopram Oxalate (Lexapro) 5 mg DAILY PO Last administered on 01/29/19 08:02; Admin Dose 5 MG; Start 01/17/19 at 09:00 Megestrol Acetate (Megace Susp) 400 mg AM PO Last administered on 01/29/19 08:10; Admin Dose 400 MG; Start 01/23/19 at 14:00 Nystatin (Nystatin Powder) 1 applic BID TOP Last administered on 01/29/19 08:15; Admin Dose 1 APPLIC; Start 01/26/19 at 21:00 Bupropion HCl (Wellbutrin Xl) 150 mg DAILY PO Last administered on 01/29/19 08:03; Admin Dose 150 MG; Start 01/28/19 at 09:00 Prednisone (Prednisone) 2.5 mg DAILY PO Last administered on 01/29/19 08:11; Admin Dose 2.5 MG; Start 01/28/19 at 09:00 Metoprolol Succinate (Toprol Xl) 25 mg DAILY PO Last administered on 01/29/19 08:08; Admin Dose 25 MG; Start 01/28/19 at 09:00 Meropenem/Sodium Chloride 50 ml @ 100 mls/hr Q12 IVPB ; Start 01/29/19 at 21:00 BREEZY FRIAS MD Jan 29, 2019 18:21
[2019-01-29 20:00] VITALS: BP 134/52; PULSE 80; RESP 18
[2019-01-29] MEDS: MEROPENEM 1 GM/50ML(PMX) 50 ML IVPB SCH (21:48)
[2019-01-30 02:00] VITALS: BP 126/58; PULSE 80; RESP 18
[2019-01-30] MEDS: LEVALBUTEROL (NEB) 0.63 MG/3 ML AMP HHN SCH ×5 (02:11→20:20)
[2019-01-30] MEDS: ACETYLCYSTEINE 20% 4 ML VIAL NEB SCH ×5 (02:11→20:14)
[2019-01-30 08:36] VITALS: BP 161/74; PULSE 83; RESP 16
[2019-01-30] MEDS: MEROPENEM 1 GM/50ML(PMX) 50 ML IVPB SCH ×2 (09:00→20:56)
[2019-01-30] MEDS: BUPROPION (XL) 150 MG TAB PO SCH (09:01)
[2019-01-30] MEDS: APIXABAN 5 MG TABLET PO SCH ×3 (09:01→22:59)
[2019-01-30] MEDS: predniSONE 2.5 MG TAB PO SCH (09:01)
[2019-01-30] MEDS: METOPROLOL (XL) 25 MG TAB PO SCH (09:01)
[2019-01-30] MEDS: MEGESTROL (40 MG/ML) 10ML CUP PO SCH (09:01)
[2019-01-30] MEDS: PANTOPRAZOLE (EC) 40 MG TAB PO SCH (09:01)
[2019-01-30] MEDS: GUAIFENESIN LA 600 MG TABSR PO SCH ×3 (09:01→22:59)
[2019-01-30] MEDS: DILTIAZEM (CD) 120 MG CAP PO SCH (09:02)
[2019-01-30] MEDS: ESCITALOPRAM 10 MG TAB PO SCH (09:02)
[2019-01-30] MEDS: TIOTROPIUM 18 MCG CAPSULE INHA DEV INH SCH (09:02)
[2019-01-30] MEDS: FLUTICASONE/VILANTEROL 200-25 INH DEVICE INH SCH (09:03)
[2019-01-30] MEDS: BALSAM PERU/CASTOR OIL 60 GM TUBE TOP SCH (09:04)
[2019-01-30] MEDS: NYSTATIN 30 GM POWDER BTL TOP SCH ×2 (09:05→20:56)
[2019-01-30 11:34] VITALS: BP 132/54; PULSE 81
[2019-01-30 13:55] VITALS: BP 118/70; PULSE 72; RESP 18
--- NOTE | 2019-01-30 18:32 | PN ---
Date/Time of Note Date/Time of Note DATE: 01/30/19 TIME: 18:28 Assessment/Plan VTE Prophylaxis Risk score (from Ns)>0 risk: 7 SCD applied (from Ns): Yes Lines/Catheters IV Catheter Type (from [facility]): Peripheral IV Urinary Cath still in place: No Assessment/Plan Assessment/Plan (1) UTI (urinary tract infection) Status: Acute Comment: Started on meropenem since patient has history of ESBL resistant organism. Urine culture pending. Qualifiers: Urinary tract infection type: acute cystitis Hematuria presence: without hematuria Qualified Codes: N30.00 - Acute cystitis without hematuria (2) Leukocytosis Status: resolved Comment: probably from UTI, improved with IV antibiotics. (3) Encephalopathy Status: Acute Comment: May be worsening due to UTI. Treat infection and monitor mental status. (4) Weakness Status: Chronic Comment: Patient was able to work better with physical therapy but has regressed past few days due to altered mental status. (5) Hyperkalemia Status: resolved (6) Anxiety and depression Status: Chronic Comment: stable on current meds with less sedation. (7) COPD (chronic obstructive pulmonary disease) Status: Chronic (8) CHF (congestive heart failure) Status: Chronic Result Diagram: 01/30/19 1112 01/30/19 1112 Results 24hrs Laboratory Tests Test 01/30/19 11:12 White Blood Count 9.9 # Red Blood Count 3.53 L Hemoglobin 9.9 L Hematocrit 32.6 L Mean Corpuscular Volume 92.4 Mean Corpuscular Hemoglobin 28.0 L Mean Corpuscular Hemoglobin Concent 30.4 L Red Cell Distribution Width 16.7 H Platelet Count 192 Mean Platelet Volume 11.5 H Immature Granulocytes % 0.500 H Neutrophils % 77.3 H Lymphocytes % 9.1 L Monocytes % 11.6 H Eosinophils % 1.2 Basophils % 0.3 Nucleated Red Blood Cells % 0.0 Immature Granulocytes # 0.050 H Neutrophils # 7.7 H Lymphocytes # 0.9 Monocytes # 1.2 H Eosinophils # 0.1 Basophils # 0.0 Nucleated Red Blood Cells # 0.0 Sodium Level 140 Potassium Level 4.7 Chloride Level 110 Carbon Dioxide Level 25 Anion Gap 5 Blood Urea Nitrogen 26 H Creatinine 1.35 H Est Glomerular Filtrat Rate mL/min Glucose Level 91 Calcium Level 9.4 Exam/Review of Systems Exam Vitals Vital Signs Date Temp Pulse Resp B/P (MAP) Pulse Ox O2 O2 Flow FiO2 Time Delivery Rate 01/30/19 2.0 14:25 01/30/19 97.8 72 18 118/70 95 13:55 (86) 01/30/19 Nasal 09:00 Cannula Intake and Output 01/29/19 01/29/19 01/30/19 1515:00 23:00 07:00 IntakeIntake Total 350 ml 1400 ml OutputOutput Total 150 ml 200 ml 500 ml BalanceBalance 200 ml 1200 ml -500 ml Results Results 24hrs Laboratory Tests Test 01/30/19 11:12 White Blood Count 9.9 # Red Blood Count 3.53 L Hemoglobin 9.9 L Hematocrit 32.6 L Mean Corpuscular Volume 92.4 Mean Corpuscular Hemoglobin 28.0 L Mean Corpuscular Hemoglobin Concent 30.4 L Red Cell Distribution Width 16.7 H Platelet Count 192 Mean Platelet Volume 11.5 H Immature Granulocytes % 0.500 H Neutrophils % 77.3 H Lymphocytes % 9.1 L Monocytes % 11.6 H Eosinophils % 1.2 Basophils % 0.3 Nucleated Red Blood Cells % 0.0 Immature Granulocytes # 0.050 H Neutrophils # 7.7 H Lymphocytes # 0.9 Monocytes # 1.2 H Eosinophils # 0.1 Basophils # 0.0 Nucleated Red Blood Cells # 0.0 Sodium Level 140 Potassium Level 4.7 Chloride Level 110 Carbon Dioxide Level 25 Anion Gap 5 Blood Urea Nitrogen 26 H Creatinine 1.35 H Est Glomerular Filtrat Rate mL/min Glucose Level 91 Calcium Level 9.4 Medications Medication Current Medications IV Flush (NS 3 ml) 3 ml PER PROTOCOL IV ; Start 01/09/19 at 21:30 Ondansetron HCl (Zofran Inj) 4 mg Q6H PRN IV NAUSEA/VOMITING; Start 01/09/19 at 21:30 Clonidine (Catapres) 0.1 mg TID PRN PO sbp >170; Start 01/09/19 at 22:00 Acetaminophen (Tylenol Tab) 650 mg TID PRN PO MILD PAIN(1-3)OR ELEVATED TEMP Last administered on 01/24/19at 14:30; Admin Dose 650 MG; Start 01/09/19 at 22:00 Apixaban (Eliquis) 5 mg BID PO Last administered on 4/4/19at 09:01; Admin Dose 5 MG; Start 01/10/19 at 09:00 Pantoprazole (Protonix Tab) 40 mg AC BREAKFAST PO Last administered on 01/30/19 09:01; Admin Dose 40 MG; Start 01/10/19 at 07:00 Diltiazem HCl (Cardizem Cd) 120 mg DAILY PO Last administered on 01/30/19 09:02; Admin Dose 120 MG; Start 01/10/19 at 09:00 Miscellaneous Information (Pending Santyl Order For Wound Care) This patient sawyer... PRN PRN XX WOUND CARE; Start 01/10/19 at 07:30 Levalbuterol (Xopenex Neb) 0.63 mg Q6H RESP THERAPY HHN Last administered on 01/30/19 02:11; Admin Dose 0.63 MG; Start 01/10/19 at 14:00 Fluticasone/ Vilanterol (Breo Ellipta 200-25 Mcg Inh) 1 inh DAILY INH Last administered on 01/30/19 09:03; Admin Dose 1 INH; Start 01/11/19 at 09:00 Tiotropium [place] (Spiriva) 1 inh DAILY INH Last administered on 01/30/19 09:02; Admin Dose 1 INH; Start 01/11/19 at 09:00 Guaifenesin (Mucinex) 600 mg BID PO Last administered on 01/30/19 09:01; Admin Dose 600 MG; Start 01/12/19 at 09:00 Acetylcysteine (Mucomyst) 2 ml Q6H RESP THERAPY NEB Last administered on 01/30/19 02:11; Admin Dose 2 ML; Start 01/12/19 at 02:00 Diazepam (Valium) 2 mg HS PRN PO for agitation, pulling on line Last administered on 01/14/19 21:29; Admin Dose 2 MG; Start 01/14/19 at 17:30 Escitalopram Oxalate (Lexapro) 5 mg DAILY PO Last administered on 01/30/19 09:02; Admin Dose 5 MG; Start 01/17/19 at 09:00 Megestrol Acetate (Megace Susp) 400 mg AM PO Last administered on 01/30/19 09:01; Admin Dose 400 MG; Start 01/23/19 at 14:00 Nystatin (Nystatin Powder) 1 applic BID TOP Last administered on 01/30/19 09:05; Admin Dose 1 APPLIC; Start 01/26/19 at 21:00 Bupropion HCl (Wellbutrin Xl) 150 mg DAILY PO Last administered on 01/30/19 09:01; Admin Dose 150 MG; Start 01/28/19 at 09:00 Prednisone (Prednisone) 2.5 mg DAILY PO Last administered on 01/30/19 09:01; Admin Dose 2.5 MG; Start 01/28/19 at 09:00 Metoprolol Succinate (Toprol Xl) 25 mg DAILY PO Last administered on 01/30/19 09:01; Admin Dose 25 MG; Start 01/28/19 at 09:00 Meropenem/Sodium Chloride 50 ml @ 100 mls/hr Q12 IVPB Last administered on 01/30/19 09:00; Admin Dose 100 MLS/HR; Start 01/29/19 at 21:00 BREEZY FRIAS MD Jan 30, 2019 18:32
[2019-01-30 20:34] VITALS: BP 130/55; PULSE 75; RESP 18
[2019-01-31 02:00] VITALS: BP 133/60; PULSE 80; RESP 18
[2019-01-31] MEDS: LEVALBUTEROL (NEB) 0.63 MG/3 ML AMP HHN SCH ×4 (02:11→20:00)
[2019-01-31] MEDS: ACETYLCYSTEINE 20% 4 ML VIAL NEB SCH ×4 (02:11→20:00)
[2019-01-31 08:26] VITALS: BP 143/63; PULSE 80; RESP 16
[2019-01-31] MEDS ORDERED: BUPROPION (XL) 150 MG TAB PO SCH (09:00)
[2019-01-31] MEDS: TIOTROPIUM 18 MCG CAPSULE INHA DEV INH SCH (09:32)
[2019-01-31] MEDS: MEROPENEM 1 GM/50ML(PMX) 50 ML IVPB SCH (09:32)
[2019-01-31] MEDS: FLUTICASONE/VILANTEROL 200-25 INH DEVICE INH SCH (09:33)
[2019-01-31] MEDS: METOPROLOL (XL) 25 MG TAB PO SCH (09:34)
[2019-01-31] MEDS: GUAIFENESIN LA 600 MG TABSR PO SCH (09:34)
[2019-01-31] MEDS: MEGESTROL (40 MG/ML) 10ML CUP PO SCH (09:34)
[2019-01-31] MEDS: predniSONE 2.5 MG TAB PO SCH (09:35)
[2019-01-31] MEDS: DILTIAZEM (CD) 120 MG CAP PO SCH (09:35)
[2019-01-31] MEDS: ESCITALOPRAM 10 MG TAB PO SCH (09:35)
[2019-01-31] MEDS: APIXABAN 5 MG TABLET PO SCH (09:35)
[2019-01-31] MEDS: NYSTATIN 30 GM POWDER BTL TOP SCH (09:36)
[2019-01-31] MEDS: BALSAM PERU/CASTOR OIL 60 GM TUBE TOP SCH (09:36)
[2019-01-31] MEDS: PANTOPRAZOLE (EC) 40 MG TAB PO SCH (09:38)
[2019-01-31 14:59] VITALS: BP 111/77; PULSE 73; RESP 18
[2019-01-31] MEDS ORDERED: MUCO4 NEB (16:13)
[2019-01-31] MEDS ORDERED: BUPR150T6 PO (16:13)
[2019-01-31] MEDS ORDERED: CIPR-193 PO (16:13)
[2019-01-31] MEDS ORDERED: GUAI600T23 PO (16:13)
--- NOTE | 2019-01-31 17:57 | DS ---
Date/Time of Note Date/Time of Note DATE: 01/31/19 TIME: 17:55 Discharge Summary Admission/Discharge Info Admit Date/Time Jan 10, 2019 at 11:21 Discharge Date/Time Jan 31, 2019 at 1621 Patient Condition: Fair Consults Infectious disease, Hx of Present Illness 83 year old male with history of copd, chf, s/p cva, s/p ileostomy and colostomy for ischemic colitis and colon cancer presents with altered mental status for 1 day. Per family , patient was tired, lethargic and not responding to normal stimuli. In the ER patient was noted to have dirty urine and elevated wbc and patient is admitted for encephalopathy due to urosepsis. Home Meds Reported Medications Fluticasone/Vilanterol (Breo Ellipta 200-25 Mcg INH) 1 Each Blst.w.dev, 1 PUFF INHALATION DAILY, #1 INHALER 01/09/19 Prednisone* (Prednisone*) 5 Mg Tab, 5 MG PO DAILY, TAB TAKE 1 OR 2 TAB NEEDED 01/09/19 Aripiprazole* (Abilify*) 5 Mg Tab, 5 MG PO DAILY, #30 TAB 01/09/19 Diltiazem Hcl (Diltiazem) 120 Mg Capsr, 120 MG PO QAM, #30 CAP 01/09/19 Pantoprazole* (Pantoprazole*) 40 Mg Tablet.dr, 40 MG PO AC BREAKFAST, TAB 01/09/19 Mirtazapine* (Mirtazapine*) 15 Mg Tablet, 15 MG PO HS, TAB 01/09/19 Metoprolol Tartrate* (Lopressor*) 50 Mg Tab, 50 MG PO BID, #60 TAB 01/09/19 Docusate Sodium* (Colace*) 100 Mg Capsule, 100 MG PO QHS, #30 CAP 01/09/19 Diazepam* (Diazepam*) 2 Mg Tablet, 2 MG PO QHS, TAB 01/09/19 Atorvastatin Calcium* (Atorvastatin Calcium*) 20 Mg Tablet, 20 MG PO QHS, #30 TAB 01/09/19 Acetaminophen* (Acetaminophen*) 325 Mg Tablet, 650 MG PO NEEDED PRN for PAIN AND OR ELEVATED TEMP, #30 TAB 01/09/19 Salmeterol Xinaf-Fluticasone* (Advair*) 500/50 Diskus Inhaler, 1 INH INHALATION BID, #1 INHALER 01/09/19 Calcium Carbonate* (Calcium Carbonate*) 600 MG Ca Tab, 600 MG PO BID, TAB 01/09/19 Apixaban* (Eliquis*) 5 Mg Tablet, 5 MG PO BID, TAB 01/09/19 Follow-up Plan Follow up in Dr. Harvey's office in 1 week. Primary Care Provider Breezy Harvey MD Time spent on discharge: > 30 minutes Pending Labs Laboratory Tests Test 01/31/19 06:15 White Blood Count 10.8 10^3/ul (4.8-10.8) Red Blood Count 3.80 10^6/ul (4.70-6.10) Hemoglobin 10.5 g/dl (14.0-18.0) Hematocrit 35.3 % (42.0-52.0) Mean Corpuscular Volume 92.9 fl (82.0-101.0) Mean Corpuscular Hemoglobin 27.6 pg (29.0-33.0) Mean Corpuscular Hemoglobin Concent 29.7 g/dl (32.0-37.0) Red Cell Distribution Width 17.0 % (11.5-14.5) Platelet Count 201 10^3/UL (140-415) Mean Platelet Volume 12.9 fl (7.4-10.4) Immature Granulocytes % 0.400 % (0.001-0.429) Neutrophils % 74.9 % (39.0-77.0) Lymphocytes % 10.3 % (15.0-51.0) Monocytes % 12.5 % (0.0-11.0) Eosinophils % 1.6 % (0.0-7.0) Basophils % 0.3 % (0.0-2.0) Nucleated Red Blood Cells % 0.0 /100WBC (0.0-0.0) Immature Granulocytes # 0.040 10^3/ul (0.0-0.031) Neutrophils # 8.1 10^3/ul (1.6-7.5) Lymphocytes # 1.1 10^3/ul (0.8-2.9) Monocytes # 1.4 10^3/ul (0.3-0.9) Eosinophils # 0.2 10^3/ul (0.0-0.5) Basophils # 0.0 10^3/ul (0.0-0.1) Nucleated Red Blood Cells # 0.0 10^3/ul (0.0-0.0) Erythrocyte Sedimentation Rate 56.0 mm/Hr (0-20) BREEZY HARVEY MD Jan 31, 2019 17:57
== END 2019-01-31 19:40 | disposition home or self-care (01) | DRG 871 ==
LOC: E/R 16:10 → TEL 20:43 → CANRESERV 01-10 00:15 → OBSVTOIN 01-10 11:21 → PP2 01-21 22:47
PROVIDERS: ADMIT Internal Medicine; ATTEND Internal Medicine
PROC: 30233N1 Transfusion of Nonautologous Red Blood Cells into Peripheral Vein, Percutaneous Approach (ICD-10-PCS; principal; 2019-01-24)
DX: A41.9 Sepsis, unspecified organism (principal); L89.153 Pressure ulcer of sacral region, stage 3; G93.41 Metabolic encephalopathy; N39.0 Urinary tract infection, site not specified; G72.0 Drug-induced myopathy; I82.412 Acute embolism and thrombosis of left femoral vein; I13.0 Hypertensive heart and chronic kidney disease with heart failure and stage 1 through stage 4 chronic kidney disease, or unspecified chronic kidney disease; B96.20 Unspecified Escherichia coli [E. coli] as the cause of diseases classified elsewhere; B96.5 Pseudomonas (aeruginosa) (mallei) (pseudomallei) as the cause of diseases classified elsewhere; Z16.12 Extended spectrum beta lactamase (ESBL) resistance; D69.6 Thrombocytopenia, unspecified; D63.8 Anemia in other chronic diseases classified elsewhere; E86.0 Dehydration; E87.5 Hyperkalemia; F41.9 Anxiety disorder, unspecified; F32.9 Major depressive disorder, single episode, unspecified; I50.9 Heart failure, unspecified; I25.10 Atherosclerotic heart disease of native coronary artery without angina pectoris; I80.8 Phlebitis and thrombophlebitis of other sites; I48.0 Paroxysmal atrial fibrillation; J44.9 Chronic obstructive pulmonary disease, unspecified; K21.9 Gastro-esophageal reflux disease without esophagitis; K44.9 Diaphragmatic hernia without obstruction or gangrene; N18.2 Chronic kidney disease, stage 2 (mild); H10.33 Unspecified acute conjunctivitis, bilateral; R53.83 Other fatigue; T38.0X5A Adverse effect of glucocorticoids and synthetic analogues, initial encounter; Z93.3 Colostomy status; Z93.2 Ileostomy status; Z98.61 Coronary angioplasty status; Z87.891 Personal history of nicotine dependence; Z86.73 Personal history of transient ischemic attack (TIA), and cerebral infarction without residual deficits; Z85.038 Personal history of other malignant neoplasm of large intestine; Z79.01 Long term (current) use of anticoagulants
CPT/HCPCS: 36415; 36430; 70450; 70486; 71045; 74170; 74177; 78806; 80048; 80053; 80202; 81001; 82140; 82270; 82565; 82962; 83036; 83540; 83605; 83735; 83880; 84132; 84134; 84484; 84520; 85025; 85045; 85610; 85651; 85730; 86430; 86850; 86900; 86901; 86920; 87070; 87081; 87086; 93005; 93306; 93971; 94640; 94664; 97110; 97116; 97161; 97530; G0378; A4310; A9570; J0696; J0885; J1940; J2060; J2185; J3370; J3475; J3480; J7040; J7042; J7050; J7512; P9016; Q9967

== ENCOUNTER 2019-02-05 16:37 | Inpatient (IN) | payer MEDICARE, BC ==
[~2019-02-05] VITALS: Ht 167.6 cm; Wt 73.9 kg
[~2019-02-05 16:37] MED LIST changes: -AMOX1TAB9 PO; -ARIP5TAB14 PO; -ASC500 PO; +BUPR150T6 PO; +CAR120SR PO; +CIPR-193 PO; +DIAZ2TAB3 PO; -DIAZ5TAB4 PO; -DILT-9 PO; -FLUT1BLS INH; +FLUT1BLS INHALATION; -FOLI-49 PO; -IPRA3AMP29 INHALATION; -MIRT15TA PO; +MIRT15TA5 PO; -MULT-105 PO; -PRED10TA PO
[2019-02-05 17:07] VITALS: Ht 167.6 cm; Wt 73.9 kg
--- NOTE | 2019-02-05 17:27 | ERD ---
ER Documentation Chief Complaint Chief Complaint BIB RA FOR EVAL OF LEFT SHOULDER PAIN. RECENT DC FROM [facility] HPI 83-year-old man brought in by EMS for decreased mental status and complaints of left shoulder pain. Patient denies fevers or chills, no complaints of chest pain or shortness of breath, no vomiting or diarrhea. HPI was limited but supplemented by speaking to EMS, family member who was later at the bedside, and reviewing old medical records ROS All systems reviewed and are negative except as per history of present illness. Medications Home Meds Active Scripts Ciprofloxacin Hcl* (Ciprofloxacin Hcl*) 250 Mg Tablet, 250 MG PO BID for 7 Days, #14 TAB Prov:BREEZY FRIAS MD 01/31/19 Guaifenesin (Guaifenesin) 600 Mg Tablet.sa, 600 MG PO BID for 30 Days, #60 Prov:BREEZY FRIAS MD 01/31/19 Acetylcysteine* (Mucomyst*) 4 Ml Soln, 2 ML NEB Q6H RESP THERAPY for 30 Days, #1 BOTTLE Prov:BREEZY FRIAS MD 01/31/19 Bupropion Hcl* (Bupropion XL*) 150 Mg Tab.er.24h, 300 MG PO DAILY for 30 Days, #30 Prov:BREEZY FRIAS MD 01/31/19 Reported Medications Fluticasone/Vilanterol (Breo Ellipta 200-25 Mcg INH) 1 Each Blst.w.dev, 1 PUFF INHALATION DAILY, #1 INHALER 01/09/19 Diltiazem Hcl (Diltiazem) 120 Mg Capsr, 120 MG PO QAM, #30 CAP 01/09/19 Pantoprazole* (Pantoprazole*) 40 Mg Tablet.dr, 40 MG PO AC BREAKFAST, TAB 01/09/19 Mirtazapine* (Mirtazapine*) 15 Mg Tablet, 15 MG PO HS, TAB 01/09/19 Metoprolol Tartrate* (Lopressor*) 50 Mg Tab, 50 MG PO BID, #60 TAB 01/09/19 Docusate Sodium* (Colace*) 100 Mg Capsule, 100 MG PO QHS, #30 CAP 01/09/19 Diazepam* (Diazepam*) 2 Mg Tablet, 2 MG PO QHS, TAB 01/09/19 Atorvastatin Calcium* (Atorvastatin Calcium*) 20 Mg Tablet, 20 MG PO QHS, #30 TAB 01/09/19 Acetaminophen* (Acetaminophen*) 325 Mg Tablet, 650 MG PO NEEDED PRN for PAIN AND OR ELEVATED TEMP, #30 TAB 01/09/19 Apixaban* (Eliquis*) 5 Mg Tablet, 5 MG PO BID, TAB 01/09/19 Discontinued Reported Medications Prednisone* (Prednisone*) 5 Mg Tab, 5 MG PO DAILY, TAB TAKE 1 OR 2 TAB NEEDED 01/09/19 Aripiprazole* (Abilify*) 5 Mg Tab, 5 MG PO DAILY, #30 TAB 01/09/19 Salmeterol Xinaf-Fluticasone* (Advair*) 500/50 Diskus Inhaler, 1 INH INHALATION BID, #1 INHALER 01/09/19 Calcium Carbonate* (Calcium Carbonate*) 600 MG Ca Tab, 600 MG PO BID, TAB 01/09/19 Allergies Allergies: Coded Allergies: No Known Allergy (Unverified , 02/05/19) PMhx/Soc COPD, status post CVA, history of ischemic colitis and colon cancer status post ileostomy and colostomy History of Surgery: Yes (COLOSTOMY PLACEMENT (RIGHT ABD/ THEN LEFT ABDOMEN)) Hx Neurological Disorder: Yes (WEAKNESS BOTH LOWER EXTREMITIES) Hx Respiratory Disorders: Yes (EMPHYSEMA, COPD) Hx Cardiac Disorders: Yes (HTN) Hx Psychiatric Problems: Yes Hx Miscellaneous Medical Probl: No FmHx Family History: No diabetes Physical Exam Vitals Vital Signs Date Temp Pulse Resp B/P (MAP) Pulse Ox O2 O2 Flow FiO2 Time Delivery Rate 02/05/19 100.1 79 20 113/63 100 Nasal 2.0 18:35 (80) Cannula 02/05/19 82 20 120/81 98 Nasal 2.0 17:23 (94) Cannula 02/05/19 98.3 80 16 147/73 99 17:07 (97) Physical Exam Const: Elderly, chronically debilitated man, lethargic but arousable, febrile HEENT: Pale conjunctive, dry mucous membranes, pupils equal round reactive to light Resp: Clear to auscultation bilaterally Cardio: Regular rate and rhythm, no murmurs Abd: Soft, non tender, non distended. Normal bowel sounds Skin: No petechiae or rashes Back: No midline or flank tenderness Ext: No cyanosis, or edema Neur: Awake and alert x1, able to answer simple questions and follow simple commands, no focal deficits Psych: Normal Mood and Affect Result Diagram: 02/05/19 1740 02/05/19 174 Results 24 hrs Laboratory Tests Test 02/05/19 17:40 02/05/19 19:03 White Blood Count 14.8 10^3/ul Red Blood Count 4.06 10^6/ul Hemoglobin 11.4 g/dl Hematocrit 37.4 % Mean Corpuscular Volume 92.1 fl Mean Corpuscular Hemoglobin 28.1 pg Mean Corpuscular Hemoglobin Concent 30.5 g/dl Red Cell Distribution Width 16.3 % Platelet Count 220 10^3/UL Mean Platelet Volume 11.7 fl Immature Granulocytes % 0.700 % Neutrophils % 77.1 % Lymphocytes % 7.6 % Monocytes % 13.6 % Eosinophils % 0.6 % Basophils % 0.4 % Nucleated Red Blood Cells % 0.0 /100WBC Immature Granulocytes # 0.100 10^3/ul Neutrophils # 11.4 10^3/ul Lymphocytes # 1.1 10^3/ul Monocytes # 2.0 10^3/ul Eosinophils # 0.1 10^3/ul Basophils # 0.1 10^3/ul Nucleated Red Blood Cells # 0.0 10^3/ul Sodium Level 146 mmol/L Potassium Level 5.2 mmol/L Chloride Level 112 mmol/L Carbon Dioxide Level 23 mmol/L Anion Gap 11 Blood Urea Nitrogen 35 mg/dl Creatinine 1.59 mg/dl Est Glomerular Filtrat Rate mL/min mL/min Glucose Level 141 mg/dl Calcium Level 10.0 mg/dl Total Bilirubin 0.3 mg/dl Direct Bilirubin 0.00 mg/dl Indirect Bilirubin 0.3 mg/dl Aspartate Amino Transf (AST/SGOT) 17 IU/L Alanine Aminotransferase (ALT/SGPT) 13 IU/L Alkaline Phosphatase 92 IU/L Total Protein 8.1 g/dl Albumin 3.9 g/dl Globulin 4.20 g/dl Albumin/Globulin Ratio 0.92 Lipase 31 U/L Urine Color JOHNATHAN Urine Clarity CLOUDY Urine pH 5.0 Urine Specific [place] 1.018 Urine Ketones NEGATIVE mg/dL Urine Nitrite NEGATIVE mg/dL Urine Bilirubin NEGATIVE mg/dL Urine Urobilinogen NEGATIVE mg/dL Urine Leukocyte Esterase 3+ [place]/ul Urine Microscopic RBC 47 /HPF Urine Microscopic WBC > 182 /HPF Urine Bacteria FEW /HPF Urine Mucus MODERATE /HPF Urine Yeast (Budding) MODERATE /HPF Urine Hemoglobin 2+ mg/dL Urine Glucose NEGATIVE mg/dL Urine Total Protein 2+ mg/dl Current Medications Medications Dose Sig/Rolando Start Time Status Last (Trade) Ordered Route PRN Stop Time Admin Dose Reason Admin Sodium 1,000 ml @ Q1H STAT 02/05/19 DC 02/05/19 Chloride 1,000 mls/hr IV 17:30 17:38 02/05/19 18:29 Ketorolac 15 mg ONCE STAT 02/05/19 DC 02/05/19 Tromethamine IV 17:30 17:38 (Toradol) 02/05/19 17:32 Procedures/MDM IV line was established patient was placed on monitor technician rhythm strip re vealed a sinus rhythm at about 80 bpm with upright P and T waves. Patient was initially afebrile with a temperature of 98.3 F. I do not suspect sepsis. I administered 1 L normal saline IV and Toradol 15 mg IV x1 for pain control. Chest X-ray 1V Interpreted by me: Soft Tissue: No acute abnormalities Bones: No acute abnormalities Mediastinum/Cardiac Silhouette/Lungs: No acute abnormalities X-ray left shoulder 3V Interpreted by me: Bones: No fracture Joints: No dislocation Foreign body: None CBC reveals a mild leukocytosis, electrolytes revealed dehydration with a BUN/creatinine of 35/1.6 and hyperkalemia 5.2, liver function tests normal, troponin negative, urinalysis was positive for infection. I administered cefepime 1 g IV for acute UTI. Patient will be admitted to [facility] for continued hydration and antibiotics Departure Diagnosis: Primary Impression: Shoulder pain Chronicity: acute Laterality: left Qualified Codes: M25.512 - Pain in left shoulder Additional Impressions: Acute encephalopathy Acute kidney injury Acute dehydration Acute UTI Condition: ZAYRA Ibarra MD Feb 05, 2019 17:27
[2019-02-05] MEDS ORDERED: SOD CHLORIDE 0.9% 1,000 ML IV STA (17:30)
[2019-02-05] MEDS ORDERED: KETOROLAC 15 MG INJ IV STA (17:30)
[2019-02-05] MEDS ORDERED: CEFEPIME 1GM/50 ML (PMX) 50 ML IVPB ONE (20:00)
[2019-02-05 22:00] VITALS: BP 126/59; PULSE 81; RESP 18
[2019-02-05] MEDS: SOD CHLORIDE 0.9% 1,000 ML IV SCH (23:58)
[2019-02-06] MEDS ORDERED: MAGNESIUM HYDROXIDE 30ML CUP PO PRN
[2019-02-06] MEDS ORDERED: NA PHOSPHATE/BIPHOS 133 ML ENEMA PR PRN
[2019-02-06] MEDS ORDERED: ONDANSETRON 4 MG INJ IV PRN
[2019-02-06] MEDS ORDERED: HYDROCODONE/APAP (5/325) TAB PO PRN
[2019-02-06] MEDS ORDERED: NACL 0.9% 3 ML SYG IV SCH
[2019-02-06] MEDS ORDERED: morphine 2 MG INJ IV PRN
[2019-02-06] MEDS: ACETYLCYSTEINE 20% 4 ML VIAL NEB SCH ×4 (02:00→19:45)
[2019-02-06 02:15] VITALS: BP 117/66; PULSE 80; RESP 18
[2019-02-06] MEDS: PANTOPRAZOLE (EC) 40 MG TAB PO SCH (07:20)
[2019-02-06 07:22] VITALS: BP 119/56; PULSE 79; RESP 16
[2019-02-06] MEDS ORDERED: PENDING SANTYL ORDER FOR WOUND CARE XX PRN (08:00)
[2019-02-06] MEDS: ALBUTEROL/IPRATROPIUM (NEB) 3 ML AMP HHN SCH ×3 (08:12→19:45)
[2019-02-06] MEDS ORDERED: CEFEPIME 1GM/50 ML (PMX) 50 ML IVPB SCH (09:00)
[2019-02-06] MEDS: CEFEPIME 1GM/50 ML (PMX) 50 ML IVPB SCH ×2 (09:03→21:18)
[2019-02-06] MEDS: BUPROPION (XL) 150 MG TAB PO SCH (09:28)
[2019-02-06] MEDS: METOPROLOL 50 MG TAB PO SCH ×2 (09:28→21:00)
[2019-02-06] MEDS: GUAIFENESIN LA 600 MG TABSR PO SCH ×2 (09:29→21:00)
[2019-02-06] MEDS: APIXABAN 5 MG TABLET PO SCH ×2 (09:29→21:00)
[2019-02-06] MEDS: FLUTICASONE/VILANTEROL 200-25 INH DEVICE INH SCH (09:30)
[2019-02-06] MEDS: SOD CHLORIDE 0.9% 1,000 ML IV SCH (12:29)
[2019-02-06 19:30] VITALS: BP 109/51; PULSE 69; RESP 20
[2019-02-06] MEDS: MIRTAZAPINE 15 MG TAB PO SCH (21:00)
[2019-02-06] MEDS: DOCUSATE SODIUM 100 MG CAP PO SCH (21:00)
[2019-02-06] MEDS ORDERED: DIAZEPAM 2 MG TAB PO SCH (21:00)
[2019-02-06] MEDS: ATORVASTATIN 20 MG TAB PO SCH (21:00)
[2019-02-06] MEDS: BALSAM PERU/CASTOR OIL 60 GM TUBE TOP SCH (21:19)
[2019-02-07] VITALS: BP 122/68; PULSE 73; RESP 20
[2019-02-07] MEDS: SOD CHLORIDE 0.9% 1,000 ML IV SCH ×3 (00:37→14:03)
[2019-02-07] MEDS: ATORVASTATIN 20 MG TAB PO SCH ×2 (01:00→21:52)
[2019-02-07] MEDS: APIXABAN 5 MG TABLET PO SCH ×3 (01:01→21:52)
[2019-02-07] MEDS: GUAIFENESIN LA 600 MG TABSR PO SCH ×3 (01:01→21:52)
[2019-02-07] MEDS: METOPROLOL 50 MG TAB PO SCH ×3 (01:02→21:52)
[2019-02-07] MEDS: ACETYLCYSTEINE 20% 4 ML VIAL NEB SCH ×4 (01:41→20:39)
[2019-02-07] MEDS: ALBUTEROL/IPRATROPIUM (NEB) 3 ML AMP HHN SCH ×4 (01:41→20:39)
--- NOTE | 2019-02-07 02:03 | HP ---
Date/Time of Note Date/Time of Note DATE: 02/07/19 TIME: 02:03 Assessment/Plan VTE Prophylaxis Risk score (from [facility])>0 risk: 9 SCD applied (from [facility]): Yes Pharmacological prophylaxis: apixaban Lines/Catheters IV [facility] Type ([facility]): Peripheral IV Urinary Cath still in place: No Assessment/Plan Problems: (1) Lethargy Status: Resolved Comment: patient is waking up after IV fluid hydration and antibiotics started. He is now at his baseline mental status with being alert and responsive but confused. (2) UTI (urinary tract infection) Status: Acute Comment: started on Cefipime. Await urine culture results. (3) Leukocytosis Status: Resolved Comment: Due to systemic infection, most likely from urinary source. (4) Acute dehydration Status: Acute Comment: continue IV fluid hydration and recheck Chem panel in AM. (5) Anxiety and depression Status: Chronic Comment: continue Remeron and Wellbutrin but hold diazepam since this may sedate him further. 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 Result Diagram: 02/06/19 0433 02/06/19 0434 Results 24hrs Laboratory Tests Test 02/06/19 04:33 02/06/19 04:34 White Blood Count 12.1 H Red Blood Count 3.70 L Hemoglobin 10.2 L Hematocrit 34.1 L Mean Corpuscular Volume 92.2 Mean Corpuscular Hemoglobin 27.6 L Mean Corpuscular Hemoglobin Concent 29.9 L Red Cell Distribution Width 16.7 H Platelet Count 191 Mean Platelet Volume 11.9 H Immature Granulocytes % 0.300 Neutrophils % 74.7 Lymphocytes % 9.6 L Monocytes % 14.7 H Eosinophils % 0.5 Basophils % 0.2 Nucleated Red Blood Cells % 0.0 Immature Granulocytes # 0.040 H Neutrophils # 9.0 H Lymphocytes # 1.2 Monocytes # 1.8 H Eosinophils # 0.1 Basophils # 0.0 Nucleated Red Blood Cells # 0.0 Hemoglobin A1c 5.3 Magnesium Level 1.5 L Sodium Level 145 H Potassium Level 4.8 Chloride Level 116 H Carbon Dioxide Level 20 L Anion Gap 9 Blood Urea Nitrogen 35 H Creatinine 1.54 H Est Glomerular Filtrat Rate mL/min Glucose Level 106 Calcium Level 9.5 Total Bilirubin 0.4 Direct Bilirubin 0.00 Indirect Bilirubin 0.4 Aspartate Amino Transf (AST/SGOT) 16 Alanine Aminotransferase (ALT/SGPT) 14 Alkaline Phosphatase 75 Total Protein 7.3 Albumin 3.5 Globulin 3.80 H Albumin/Globulin Ratio 0.92 HPI/ROS Admit Date/Time Admit Date/Time Feb 05, 2019 at 20:14 Hx of Present Illness 83-year-old male brought in by his family members for progressive lethargy over the past two days so that he was unable to wake up to take his medications or eat. Work up in the emergency room shows elevated WBC, bun/creatinine and abnormal urine suggestive of dehydration and urosepsis and patient is admitted for IV antibiotics and IV fluid hydration. PMH/Family/Social Past Medical History Medical History: cancer, congestive heart failure, GERD, high cholesterol, hypertension, peptic ulcer disease, urinary tract infection Medications Current Medications Cefepime HCl 50 ml @ 100 mls/hr Q12 IVPB Last administered on 02/06/19at 21:18; Admin Dose 100 MLS/HR; Start 02/06/19 at 09:00 Acetaminophen (Tylenol Tab) 650 mg Q4 PRN PO MILD PAIN(1-3)OR ELEVATED TEMP; Start 02/06/19 at 00:00 Acetylcysteine (Mucomyst) 2 ml Q6H RESP THERAPY NEB Last administered on 02/07/19at 01:41; Admin Dose 2 ML; Start 02/06/19 at 02:00 Apixaban (Eliquis) 2.5 mg BID PO Last administered on 02/07/19at 01:01; Admin Dose 2.5 MG; Start 02/06/19 at 09:00 Atorvastatin Calcium (Lipitor) 20 mg QHS PO Last administered on 02/07/19 01:00; Admin Dose 20 MG; Start 02/06/19 at 21:00 Bupropion HCl (Wellbutrin Xl) 300 mg DAILY PO Last administered on 02/06/19at 09:28; Admin Dose 300 MG; Start 02/06/19 at 09:00 Diazepam (Valium) 2 mg QHS PO ; Start 02/06/19 at 21:00 Docusate Sodium (Colace) 100 mg QHS PO ; Start 02/06/19 at 21:00 Fluticasone/ Vilanterol (Breo Ellipta 200-25 Mcg Inh) 1 inh DAILY INH Last administered on 02/06/19at 09:30; Admin Dose 1 INH; Start 02/06/19 at 09:00 Guaifenesin (Mucinex) 600 mg BID PO Last administered on 02/07/19at 01:01; Admin Dose 600 MG; Start 02/06/19 at 09:00 Metoprolol Tartrate (Lopressor) 50 mg BID PO Last administered on 02/07/19 01:02; Admin Dose 50 MG; Start 02/06/19 at 09:00 Mirtazapine (Remeron) 15 mg HS PO ; Start 02/06/19 at 21:00 Pantoprazole (Protonix Tab) 40 mg AC BREAKFAST PO ; Start 02/06/19 at 07:20 Sodium Chloride 1,000 ml @ 80 mls/hr [id number] IV Last administered on 02/07/19 01:02; Admin Dose 80 MLS/HR; Start 02/05/19 at 23:37 IV Flush (NS 3 ml) 3 ml PER PROTOCOL IV Last administered on 02/06/19at 00:04; Admin Dose 3 ML; Start 02/06/19 at 00:00 Ondansetron HCl (Zofran Inj) 4 mg Q6H PRN IV NAUSEA/VOMITING; Start 02/06/19 at 00:00 Acetaminophen/ Hydrocodone Bitart ([place] (5/325)) 1 tab Q6H PRN PO .MOD PAIN 4- 6; Start 02/06/19 at 00:00 Morphine Sulfate (morphine) 1 mg Q4H PRN IV .SEVERE PAIN 7-10; Start 02/06/19 at 00:00 Magnesium Hydroxide (Milk Of Mag) 30 ml DAILY PRN PO .CONSTIPATION; Start 02/06/19 at 00:00 Sodium Biphosphate/ Sodium Phosphate (Fleet Enema) 133 ml DAILY PRN [place] .CONSTIPATION; Start 02/06/19 at 00:00 Miscellaneous Information ([facility]) This patient sawyer... PRN PRN XX WOUND CARE; Start 02/06/19 at 08:00 Albuterol/ Ipratropium (Duoneb) 3 ml Q6H RESP THERAPY HHN Last administered on 02/07/19at 01:41; Admin Dose 3 ML; Start 02/06/19 at 08:30 Coded Allergies: No Known Allergy (Unverified , 02/05/19) Past Surgical History Past Surgical Hx: angioplasty, bowel resection, other Family History Significant Family History: no pertinent family hx Social History Alcohol Use: occasionally Smoking Status: Former smoker Drug Use: none Exam/Review of Systems Vital Signs Vitals Vital Signs Date Temp Pulse Resp B/P (MAP) Pulse Ox O2 O2 Flow FiO2 Time Delivery Rate 02/07/19 67 18 97 Nasal 2.0 01:41 Cannula 02/06/19 98.6 109/51 19:30 (70) Intake and Output 02/06/19 02/06/19 02/07/19 1515:00 23:00 07:00 IntakeIntake Total 1230 ml 600 ml 200 ml OutputOutput Total 700 ml BalanceBalance 1230 ml -100 ml 200 ml Exam Constitutional: alert Psych: confusion Eyes: nl conjunctiva ENMT: nl external ears & nose Respiratory: clear to auscultation Cardiovascular: regular rate and rhythm Gastrointestinal: soft, other Musculoskeletal: nl extremities to inspection BREEZY FRIAS MD Feb 07, 2019 02:03
[2019-02-07] MEDS ORDERED: DIAZEPAM 2 MG TAB PO PRN (02:30)
[2019-02-07] MEDS: PANTOPRAZOLE (EC) 40 MG TAB PO SCH (06:12)
[2019-02-07 07:32] VITALS: BP 122/62; PULSE 82; RESP 19
[2019-02-07] MEDS: BALSAM PERU/CASTOR OIL 60 GM TUBE TOP SCH ×2 (09:44→20:32)
[2019-02-07] MEDS: CEFEPIME 1GM/50 ML (PMX) 50 ML IVPB SCH ×2 (09:44→20:32)
[2019-02-07] MEDS: BUPROPION (XL) 150 MG TAB PO SCH (09:46)
[2019-02-07] MEDS: FLUTICASONE/VILANTEROL 200-25 INH DEVICE INH SCH (09:51)
[2019-02-07 15:12] VITALS: BP 119/58; PULSE 72; RESP 18
[2019-02-07 19:15] VITALS: BP 159/63; PULSE 96; RESP 20
[2019-02-07] MEDS: MIRTAZAPINE 15 MG TAB PO SCH (21:52)
[2019-02-07] MEDS: DOCUSATE SODIUM 100 MG CAP PO SCH (21:52)
--- NOTE | 2019-02-07 22:45 | PN ---
Date/Time of Note Date/Time of Note DATE: 02/07/19 TIME: 22:35 Assessment/Plan VTE Prophylaxis Risk score (from [facility])>0 risk: 4 SCD applied (from [facility]): Yes Pharmacological prophylaxis: apixaban Lines/Catheters IV Catheter Type (from [facility]): Peripheral IV Urinary Cath still in place: No Assessment/Plan Problems: (1) Lethargy Status: Resolved (2) UTI (urinary tract infection) Status: Acute Comment: preliminary urine culture shows yeast but patient clinically improved with IV cefepime. May need to add fluconazole if indicated. (3) Leukocytosis Status: Resolved (4) Acute dehydration Status: Acute Comment: improving azotemia with IV fluid hydration. Continue gentle hydration and dc iv fluid when bun and creatinine reach baseline. (5) Shoulder pain Status: Resolved Comment: shoulders x-rays negative for bony findings. May need to obtain shoulder MRI to check for rotator cuff tear or soft tissue injury. 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 Result Diagram: 02/07/199 02/07/19 0459 Results 24hrs Laboratory Tests Test 02/07/19 04:59 White Blood Count 10.3 Red Blood Count 3.27 L Hemoglobin 9.3 L Hematocrit 30.5 L Mean Corpuscular Volume 93.3 Mean Corpuscular Hemoglobin 28.4 L Mean Corpuscular Hemoglobin Concent 30.5 L Red Cell Distribution Width 16.5 H Platelet Count 168 Mean Platelet Volume 12.2 H Immature Granulocytes % 0.400 Neutrophils % 73.4 Lymphocytes % 12.0 L Monocytes % 12.5 H Eosinophils % 1.4 Basophils % 0.3 Nucleated Red Blood Cells % 0.0 Immature Granulocytes # 0.040 H Neutrophils # 7.6 H Lymphocytes # 1.2 Monocytes # 1.3 H Eosinophils # 0.1 Basophils # 0.0 Nucleated Red Blood Cells # 0.0 Sodium Level 146 H Potassium Level 4.0 Chloride Level 118 H Carbon Dioxide Level 19 L Anion Gap 9 Blood Urea Nitrogen 32 H Creatinine 1.35 H Est Glomerular Filtrat Rate mL/min Glucose Level 87 Calcium Level 9.2 Total Bilirubin 0.3 Direct Bilirubin 0.00 Indirect Bilirubin 0.3 Aspartate Amino Transf (AST/SGOT) 15 Alanine Aminotransferase (ALT/SGPT) 7 L Alkaline Phosphatase 80 Total Protein 6.6 Albumin 3.1 L Globulin 3.50 H Albumin/Globulin Ratio 0.88 Subjective 24 Hr Interval Summary Free Text/Dictation patient awake and alert and complains of left shoulder pain. Exam/Review of Systems Exam Vitals Vital Signs Date Temp Pulse Resp B/P (MAP) Pulse Ox O2 O2 Flow FiO2 Time Delivery Rate 02/07/19 72 18 98 Nasal 2.0 20:40 Cannula 02/07/19 97.5 159/63 19:15 (95) Intake and Output 02/06/19 02/06/19 02/07/19 1515:00 23:00 07:00 IntakeIntake Total 1230 ml 650 ml 1260 ml OutputOutput Total 1100 ml 200 ml BalanceBalance 1230 ml -450 ml 1060 ml Constitutional: alert Head: normocephalic Eyes: nl conjunctiva ENMT: nl external ears & nose Respiratory: clear to auscultation Cardiovascular: regular rate and rhythm Gastrointestinal: soft, other Musculoskeletal: nl extremities to inspection Results Results 24hrs Laboratory Tests Test 02/07/19 04:59 White Blood Count 10.3 Red Blood Count 3.27 L Hemoglobin 9.3 L Hematocrit 30.5 L Mean Corpuscular Volume 93.3 Mean Corpuscular Hemoglobin 28.4 L Mean Corpuscular Hemoglobin Concent 30.5 L Red Cell Distribution Width 16.5 H Platelet Count 168 Mean Platelet Volume 12.2 H Immature Granulocytes % 0.400 Neutrophils % 73.4 Lymphocytes % 12.0 L Monocytes % 12.5 H Eosinophils % 1.4 Basophils % 0.3 Nucleated Red Blood Cells % 0.0 Immature Granulocytes # 0.040 H Neutrophils # 7.6 H Lymphocytes # 1.2 Monocytes # 1.3 H Eosinophils # 0.1 Basophils # 0.0 Nucleated Red Blood Cells # 0.0 Sodium Level 146 H Potassium Level 4.0 Chloride Level 118 H Carbon Dioxide Level 19 L Anion Gap 9 Blood Urea Nitrogen 32 H Creatinine 1.35 H Est Glomerular Filtrat Rate mL/min Glucose Level 87 Calcium Level 9.2 Total Bilirubin 0.3 Direct Bilirubin 0.00 Indirect Bilirubin 0.3 Aspartate Amino Transf (AST/SGOT) 15 Alanine Aminotransferase (ALT/SGPT) 7 L Alkaline Phosphatase 80 Total Protein 6.6 Albumin 3.1 L Globulin 3.50 H Albumin/Globulin Ratio 0.88 Medications Medication Current Medications Cefepime HCl 50 ml @ 100 mls/hr Q12 IVPB Last administered on 02/07/19 20:32; Admin Dose 100 MLS/HR; Start 02/06/19 at 09:00 Acetaminophen (Tylenol Tab) 650 mg Q4 PRN PO MILD PAIN(1-3)OR ELEVATED TEMP; Start 02/06/19 at 00:00 Acetylcysteine (Mucomyst) 2 ml Q6H RESP THERAPY NEB Last administered on 02/07/19 20:39; Admin Dose 2 ML; Start 02/06/19 at 02:00 Apixaban (Eliquis) 2.5 mg BID PO Last administered on 02/07/19 21:52; Admin Dose 2.5 MG; Start 02/06/19 at 09:00 Atorvastatin Calcium (Lipitor) 20 mg QHS PO Last administered on 02/07/19 21:52; Admin Dose 20 MG; Start 02/06/19 at 21:00 Bupropion HCl (Wellbutrin Xl) 300 mg DAILY PO Last administered on 02/07/19 09:46; Admin Dose 300 MG; Start 02/06/19 at 09:00 Docusate Sodium (Colace) 100 mg QHS PO Last administered on 02/07/19 21:52; Admin Dose 100 MG; Start 02/06/19 at 21:00 Fluticasone/ Vilanterol (Breo Ellipta 200-25 Mcg Inh) 1 inh DAILY INH Last admi nistered on 02/07/19 09:51; Admin Dose 1 INH; Start 02/06/19 at 09:00 Guaifenesin (Mucinex) 600 mg BID PO Last administered on 02/07/19 21:52; Admin Dose 600 MG; Start 02/06/19 at 09:00 Metoprolol Tartrate (Lopressor) 50 mg BID PO Last administered on 02/07/19 21:52; Admin Dose 50 MG; Start 02/06/19 at 09:00 Mirtazapine (Remeron) 15 mg HS PO Last administered on 4/12/19at 21:52; Admin Dose 15 MG; Start 02/06/19 at 21:00 Pantoprazole (Protonix Tab) 40 mg AC BREAKFAST PO Last administered on 02/07/19 06:12; Admin Dose 40 MG; Start 02/06/19 at 07:20 Sodium Chloride 1,000 ml @ 80 mls/hr [id number] IV Last administered on 02/07/19at 14:03; Admin Dose 80 MLS/HR; Start 02/05/19 at 23:37 IV Flush (NS 3 ml) 3 ml PER PROTOCOL IV Last administered on 02/06/19at 00:04; Admin Dose 3 ML; Start 02/06/19 at 00:00 Ondansetron HCl (Zofran Inj) 4 mg Q6H PRN IV NAUSEA/VOMITING; Start 02/06/19 at 00:00 Acetaminophen/ Hydrocodone Bitart ([place] (5/325)) 1 tab Q6H PRN PO .MOD PAIN 4- 6; Start 02/06/19 at 00:00 Morphine Sulfate (morphine) 1 mg Q4H PRN IV .SEVERE PAIN 7-10; Start 02/06/19 at 00:00 Magnesium Hydroxide (Milk Of Mag) 30 ml DAILY PRN PO .CONSTIPATION; Start 02/06/19 at 00:00 Sodium Biphosphate/ Sodium Phosphate (Fleet Enema) 133 ml DAILY PRN [place] .CONSTIPATION; Start 02/06/19 at 00:00 Miscellaneous Information (Pending [facility] Order For Wound Care) This patient sawyer... PRN PRN XX WOUND CARE; Start 02/06/19 at 08:00 Albuterol/ Ipratropium (Duoneb) 3 ml Q6H RESP THERAPY HHN Last administered on 02/07/19at 20:39; Admin Dose 3 ML; Start 02/06/19 at 08:30 Diazepam (Valium) 2 mg QHS PRN PO agitation; Start 02/07/19 at 02:30 BREEZY FRIAS MD Feb 07, 2019 22:45
[2019-02-08] MEDS: ACETYLCYSTEINE 20% 4 ML VIAL NEB SCH ×4 (01:58→19:44)
[2019-02-08] MEDS: ALBUTEROL/IPRATROPIUM (NEB) 3 ML AMP HHN SCH ×4 (01:58→19:44)
[2019-02-08 02:10] VITALS: BP 151/67; PULSE 82; RESP 20
[2019-02-08] MEDS: SOD CHLORIDE 0.9% 1,000 ML IV SCH ×2 (02:40→19:04)
[2019-02-08] MEDS: PANTOPRAZOLE (EC) 40 MG TAB PO SCH (06:08)
[2019-02-08 08:13] VITALS: BP 138/59; PULSE 75; RESP 18
[2019-02-08] MEDS: GUAIFENESIN LA 600 MG TABSR PO SCH ×2 (09:34→21:15)
[2019-02-08] MEDS: BUPROPION (XL) 150 MG TAB PO SCH (09:34)
[2019-02-08] MEDS: APIXABAN 5 MG TABLET PO SCH ×2 (09:34→21:16)
[2019-02-08] MEDS: METOPROLOL 50 MG TAB PO SCH ×2 (09:40→21:16)
[2019-02-08] MEDS: CEFEPIME 1GM/50 ML (PMX) 50 ML IVPB SCH ×2 (09:41→21:15)
[2019-02-08] MEDS: BALSAM PERU/CASTOR OIL 60 GM TUBE TOP SCH ×2 (09:41→21:19)
[2019-02-08] MEDS: FLUTICASONE/VILANTEROL 200-25 INH DEVICE INH SCH (09:41)
[2019-02-08 13:51] VITALS: BP 138/72; PULSE 74; RESP 18
--- NOTE | 2019-02-08 18:42 | PN ---
Date/Time of Note Date/Time of Note DATE: 02/08/19 TIME: 08:42 Subjective tired, weak Objective Vitals Vital Signs Date Temp Pulse Resp B/P (MAP) Pulse Ox O2 O2 Flow FiO2 Time Delivery Rate 02/08/19 97.8 74 18 138/72 99 13:51 (94) 02/08/19 Nasal 2.0 09:00 Cannula Intake and Output 02/07/19 02/07/19 02/08/19 1515:00 23:00 07:00 IntakeIntake Total 810 ml 1360 ml 1790 ml OutputOutput Total 250 ml 300 ml BalanceBalance 810 ml 1110 ml 1490 ml less motivated to eat himself, in bed, pale, flat affect, rr syst m+, cta, a few open skin ulcer wounds+ Results Result Diagram: 02/07/19 0459 02/08/19 0418 Medications Medications Current Medications Cefepime HCl 50 ml @ 100 mls/hr Q12 IVPB Last administered on 02/08/19at 09:41; Admin Dose 100 MLS/HR; Start 02/06/19 at 09:00 Acetaminophen (Tylenol Tab) 650 mg Q4 PRN PO MILD PAIN(1-3)OR ELEVATED TEMP; Start 02/06/19 at 00:00 Acetylcysteine (Mucomyst) 2 ml Q6H RESP THERAPY NEB Last administered on 02/08/19at 09:10; Admin Dose 2 ML; Start 02/06/19 at 02:00 Apixaban (Eliquis) 2.5 mg BID PO Last administered on 02/08/19 09:34; Admin Dose 2.5 MG; Start 02/06/19 at 09:00 Atorvastatin Calcium (Lipitor) 20 mg QHS PO Last administered on 02/07/19 21:52; Admin Dose 20 MG; Start 02/06/19 at 21:00 Bupropion HCl (Wellbutrin Xl) 300 mg DAILY PO Last administered on 02/08/19 09:34; Admin Dose 300 MG; Start 02/06/19 at 09:00 Docusate Sodium (Colace) 100 mg QHS PO Last administered on 02/07/19 21:52; Admin Dose 100 MG; Start 02/06/19 at 21:00 Fluticasone/ Vilanterol (Breo Ellipta 200-25 Mcg Inh) 1 inh DAILY INH Last administered on 02/08/19 09:41; Admin Dose 1 INH; Start 02/06/19 at 09:00 Guaifenesin (Mucinex) 600 mg BID PO Last administered on 02/08/19 09:34; Admin Dose 600 MG; Start 02/06/19 at 09:00 Metoprolol Tartrate (Lopressor) 50 mg BID PO Last administered on 02/08/19 09:40; Admin Dose 50 MG; Start 02/06/19 at 09:00 Mirtazapine (Remeron) 15 mg HS PO Last administered on 02/07/19 21:52; Admin Dose 15 MG; Start 02/06/19 at 21:00 Pantoprazole (Protonix Tab) 40 mg AC BREAKFAST PO Last administered on 02/08/19 06:08; Admin Dose 40 MG; Start 02/06/19 at 07:20 Sodium Chloride 1,000 ml @ 80 mls/hr [id number] IV Last administered on 02/08/19at 02:40; Admin Dose 80 MLS/HR; Start 02/05/19 at 23:37 IV Flush (NS 3 ml) 3 ml PER PROTOCOL IV Last administered on 02/06/19at 00:04; Admin Dose 3 ML; Start 02/06/19 at 00:00 Ondansetron HCl (Zofran Inj) 4 mg Q6H PRN IV NAUSEA/VOMITING; Start 02/06/19 at 00:00 Acetaminophen/ Hydrocodone Bitart ([place] (5/325)) 1 tab Q6H PRN PO .MOD PAIN 4- 6; Start 02/06/19 at 00:00 Morphine Sulfate (morphine) 1 mg Q4H PRN IV .SEVERE PAIN 7-10; Start 02/06/19 at 00:00 Magnesium Hydroxide (Milk Of Mag) 30 ml DAILY PRN PO .CONSTIPATION; Start 02/06/19 at 00:00 Sodium Biphosphate/ Sodium Phosphate (Fleet Enema) 133 ml DAILY PRN [place] .CONSTIPATION; Start 02/06/19 at 00:00 Miscellaneous Information (Pending [facility] Order For Wound Care) This patient sawyer... PRN PRN XX WOUND CARE; Start 02/06/19 at 08:00 Albuterol/ Ipratropium (Duoneb) 3 ml Q6H RESP THERAPY HHN Last administered on 02/08/19at 09:10; Admin Dose 3 ML; Start 02/06/19 at 08:30 Diazepam (Valium) 2 mg QHS PRN PO agitation; Start 02/07/19 at 02:30 VTE Prophylaxis Risk score (from [facility])>0 risk: 6 SCD applied (from [facility]): Yes Pharmacological prophylaxis: apixaban Lines/Catheters IV Catheter Type: Saline Lock Central line still needed: No Lazaro in Place: No Assessment/Plan Assessment/Plan 1. uti 2. encephalopathy 3. ckd II 4. anemia 5. htn/cm 6. depression/ dementia 7. debility worsening 8. stasis open skin ulcers ---cont iv atbx ---dec ivf rate ---natalie all supportive cares ARNOLD TAM MD Feb 08, 2019 18:42
[2019-02-08 19:10] VITALS: BP 161/79; PULSE 74; RESP 20
[2019-02-08] MEDS: ATORVASTATIN 20 MG TAB PO SCH (21:15)
[2019-02-08] MEDS: MIRTAZAPINE 15 MG TAB PO SCH (21:15)
[2019-02-08] MEDS: DOCUSATE SODIUM 100 MG CAP PO SCH (21:16)
[2019-02-09 02:12] VITALS: BP 167/82; PULSE 70; RESP 20
[2019-02-09] MEDS: ACETYLCYSTEINE 20% 4 ML VIAL NEB SCH ×4 (02:25→19:50)
[2019-02-09] MEDS: ALBUTEROL/IPRATROPIUM (NEB) 3 ML AMP HHN SCH ×4 (02:25→19:49)
[2019-02-09 04:00] VITALS: BP 146/78; PULSE 74
[2019-02-09] MEDS: PANTOPRAZOLE (EC) 40 MG TAB PO SCH (06:28)
[2019-02-09 08:00] VITALS: BP 136/62; PULSE 69; RESP 19
[2019-02-09] MEDS: BUPROPION (XL) 150 MG TAB PO SCH (08:24)
[2019-02-09] MEDS: GUAIFENESIN LA 600 MG TABSR PO SCH ×2 (08:24→21:14)
[2019-02-09] MEDS: METOPROLOL 50 MG TAB PO SCH (08:25)
[2019-02-09] MEDS: APIXABAN 5 MG TABLET PO SCH ×2 (08:25→21:15)
[2019-02-09] MEDS: CEFEPIME 1GM/50 ML (PMX) 50 ML IVPB SCH ×2 (08:28→21:14)
[2019-02-09] MEDS: FLUTICASONE/VILANTEROL 200-25 INH DEVICE INH SCH (08:28)
[2019-02-09] MEDS: BALSAM PERU/CASTOR OIL 60 GM TUBE TOP SCH ×2 (08:29→21:16)
--- NOTE | 2019-02-09 13:22 | PN ---
Date/Time of Note Date/Time of Note DATE: 02/09/19 TIME: 13:18 Subjective complaints Objective Vitals Vital Signs Date Temp Pulse Resp B/P (MAP) Pulse Ox O2 O2 Flow FiO2 Time Delivery Rate 02/09/19 71 24 94 Nasal 1.0 08:55 Cannula 02/09/19 98.0 136/62 08:00 (86) 02/09/19 28 02:45 Intake and Output 02/08/19 02/08/19 02/09/19 1515:00 23:00 07:00 IntakeIntake Total 750 ml 1050 ml 350 ml OutputOutput Total 1 ml 400 ml BalanceBalance 749 ml 1050 ml -50 ml flat affect+, pale, in bed, cta, rr syst m+, slight +1 edema Results Result Diagram: 02/09/19 0428 02/09/19 0428 Medications Medications Current Medications Cefepime HCl 50 ml @ 100 mls/hr Q12 IVPB Last administered on 02/09/19 08:28; Admin Dose 100 MLS/HR; Start 02/06/19 at 09:00 Acetaminophen (Tylenol Tab) 650 mg Q4 PRN PO MILD PAIN(1-3)OR ELEVATED TEMP; Start 02/06/19 at 00:00 Acetylcysteine (Mucomyst) 2 ml Q6H RESP THERAPY NEB Last administered on 02/09/19 08:55; Admin Dose 2 ML; Start 02/06/19 at 02:00 Apixaban (Eliquis) 2.5 mg BID PO Last administered on 02/09/19 08:25; Admin Dose 2.5 MG; Start 02/06/19 at 09:00 Atorvastatin Calcium (Lipitor) 20 mg QHS PO Last administered on 02/08/19 21: 15; Admin Dose 20 MG; Start 02/06/19 at 21:00 Bupropion HCl (Wellbutrin Xl) 300 mg DAILY PO Last administered on 02/09/19 08:24; Admin Dose 300 MG; Start 02/06/19 at 09:00 Docusate Sodium (Colace) 100 mg QHS PO Last administered on 02/08/19 21:16; Admin Dose 100 MG; Start 02/06/19 at 21:00 Fluticasone/ Vilanterol (Breo Ellipta 200-25 Mcg Inh) 1 inh DAILY INH Last administered on 02/09/19 08:28; Admin Dose 1 INH; Start 02/06/19 at 09:00 Guaifenesin (Mucinex) 600 mg BID PO Last administered on 02/09/19 08:24; Admin Dose 600 MG; Start 02/06/19 at 09:00 Metoprolol Tartrate (Lopressor) 50 mg BID PO Last administered on 02/09/19 08:25; Admin Dose 50 MG; Start 02/06/19 at 09:00 Mirtazapine (Remeron) 15 mg HS PO Last administered on 02/08/19 21:15; Admin Dose 15 MG; Start 02/06/19 at 21:00 Pantoprazole (Protonix Tab) 40 mg AC BREAKFAST PO Last administered on 02/09/19 06:28; Admin Dose 40 MG; Start 02/06/19 at 07:20 Sodium Chloride 1,000 ml @ 50 mls/hr Q20H IV Last administered on 02/08/19 19:04; Admin Dose 50 MLS/HR; Start 02/05/19 at 23:37 IV Flush (NS 3 ml) 3 ml PER PROTOCOL IV Last administered on 02/06/19 00:04; Admin Dose 3 ML; Start 02/06/19 at 00:00 Ondansetron HCl (Zofran Inj) 4 mg Q6H PRN IV NAUSEA/VOMITING; Start 02/06/19 at 00:00 Acetaminophen/ Hydrocodone Bitart ([place] (5/325)) 1 tab Q6H PRN PO .MOD PAIN 4- 6; Start 02/06/19 at 00:00 Morphine Sulfate (morphine) 1 mg Q4H PRN IV .SEVERE PAIN 7-10; Start 02/06/19 at 00:00 Magnesium Hydroxide (Milk Of Mag) 30 ml DAILY PRN PO .CONSTIPATION; Start 02/06/19 at 00:00 Sodium Biphosphate/ Sodium Phosphate (Fleet Enema) 133 ml DAILY PRN [place] .CONSTIPATION; Start 02/06/19 at 00:00 Miscellaneous Information (Pending [facility] Order For Wound Care) This patient sawyer... PRN PRN XX WOUND CARE; Start 02/06/19 at 08:00 Albuterol/ Ipratropium (Duoneb) 3 ml Q6H RESP THERAPY HHN Last administered on 02/09/19at 08:55; Admin Dose 3 ML; Start 02/06/19 at 08:30 Diazepam (Valium) 2 mg QHS PRN PO agitation; Start 02/07/19 at 02:30 Magnesium Sulfate 50 ml @ 25 mls/hr ONCE ONCE IVPB ; Start 02/09/19 at 13:30; Stop 02/09/19 at 15:29; Status UNV VTE Prophylaxis Risk score (from [facility])>0 risk: 9 SCD applied (from [facility]): Yes Pharmacological prophylaxis: apixaban Lines/Catheters IV Catheter Type: Saline Lock Central line still needed: No Lazaro in Place: No Assessment/Plan Assessment/Plan 1. uti 2. ckd II/ anemia 3. cm/ htn 4. depression/ dementia 5. debility worsening--disposition location diff to choose 6. a few open stasis ulcer/ scratched lesions+ 7. copd ---cont iv atbx ---cont ivf ---replace Mg ---start ot/ pt ARNOLD Jackson MD Feb 09, 2019 13:22
[2019-02-09] MEDS ORDERED: MAGNESIUM SULFATE 2 GM/50 ML 50 ML IVPB ONE (14:30)
[2019-02-09 15:01] VITALS: BP 160/65; PULSE 75; RESP 19
[2019-02-09 19:54] VITALS: BP 120/68; PULSE 75; RESP 20
[2019-02-09] MEDS: ATORVASTATIN 20 MG TAB PO SCH (21:14)
[2019-02-09] MEDS: DOCUSATE SODIUM 100 MG CAP PO SCH (21:15)
[2019-02-09] MEDS: METOPROLOL 25 MG TAB PO SCH (21:15)
[2019-02-09] MEDS: MIRTAZAPINE 15 MG TAB PO SCH (21:16)
[2019-02-10] MEDS: ACETYLCYSTEINE 20% 4 ML VIAL NEB SCH ×4 (01:46→19:50)
[2019-02-10] MEDS: ALBUTEROL/IPRATROPIUM (NEB) 3 ML AMP HHN SCH ×4 (01:46→19:50)
[2019-02-10 02:08] VITALS: BP 128/80; PULSE 69; RESP 20
[2019-02-10] MEDS: SOD CHLORIDE 0.9% 1,000 ML IV SCH (02:49)
[2019-02-10 07:34] VITALS: BP 151/73; PULSE 68; RESP 18
[2019-02-10] MEDS: CEFEPIME 1GM/50 ML (PMX) 50 ML IVPB SCH (08:23)
[2019-02-10] MEDS: PANTOPRAZOLE (EC) 40 MG TAB PO SCH (08:24)
[2019-02-10] MEDS: GUAIFENESIN LA 600 MG TABSR PO SCH ×2 (08:24→21:10)
[2019-02-10] MEDS: BUPROPION (XL) 150 MG TAB PO SCH (08:24)
[2019-02-10] MEDS: BALSAM PERU/CASTOR OIL 60 GM TUBE TOP SCH ×2 (08:24→21:11)
[2019-02-10] MEDS: FLUTICASONE/VILANTEROL 200-25 INH DEVICE INH SCH (08:24)
[2019-02-10] MEDS: METOPROLOL 25 MG TAB PO SCH ×2 (08:25→21:11)
[2019-02-10] MEDS: APIXABAN 5 MG TABLET PO SCH ×2 (08:25→21:11)
[2019-02-10 15:44] VITALS: BP 128/75; PULSE 91; RESP 18
[2019-02-10 19:49] VITALS: BP 142/61; PULSE 83; RESP 22
[2019-02-10] MEDS: ATORVASTATIN 20 MG TAB PO SCH (21:10)
[2019-02-10] MEDS: DOCUSATE SODIUM 100 MG CAP PO SCH (21:10)
[2019-02-10] MEDS: MIRTAZAPINE 15 MG TAB PO SCH (21:10)
--- NOTE | 2019-02-10 21:27 | PN ---
Date/Time of Note Date/Time of Note DATE: 02/10/19 TIME: 21:11 Assessment/Plan VTE Prophylaxis Risk score (from [facility] [place])>0 risk: 7 SCD applied (from [facility] [place]): Yes Pharmacological prophylaxis: apixaban Lines/Catheters IV Catheter Type (from [facility]): Peripheral IV Urinary Cath still in place: No Assessment/Plan Problems: (1) Lethargy Status: Resolved Comment: altered mental status resolved with IV fluid hydration and IV antibiotics. I will discontinue IV antibiotics and IV fluid, especially since urine culture is negative for bacteria infection. (2) Dehydration Status: Resolved Comment: clinically improved. Will discontinue IV fluids and follow basic metabolic panel. (3) UTI (urinary tract infection) Status: Acute Comment: patient is growing enriqueta glabrata in the urine culture. Unclear if this is colonization or infection since patient is improved clinically on no antifungal medications.. I will recheck urine analysis and urine culture and consult infectious disease for treatment since Enriqueta glabrata has high tendency for fluconazole resistance. (4) Weakness Status: Chronic Comment: patient cooperative and improving with physical therapy treatment. (5) Anxiety and depression Status: Chronic Comment: Depression controlled on wellbutrin in am and low dose of mirtazapine at night. 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 (8) Shoulder pain Status: Resolved Comment: MRI notable for multiple tendinosis. Patient reports symptoms improved at this point. Will stop IV Morphine and [place]. Continue Tylenol if needed. Qualifiers: Chronicity: acute Laterality: left Qualified Codes: M25.512 - Pain in left shoulder Result Diagram: 02/09/19 0428 02/10/19 0422 Results 24hrs Laboratory Tests Test 02/10/19 04:22 Sodium Level 144 Potassium Level 4.2 Chloride Level 117 H Carbon Dioxide Level 20 L Anion Gap 7 Blood Urea Nitrogen 21 H Creatinine 1.15 Est Glomerular Filtrat Rate mL/min Glucose Level 87 Calcium Level 10.1 Magnesium Level 2.0 Subjective 24 Hr Interval Summary Free Text/Dictation Awake and alert. Reports that he was able to transfer out o& bed and ambulated short distances with physical therapy Exam/Review of Systems Exam Vitals Vital Signs Date Temp Pulse Resp B/P (MAP) Pulse Ox O2 O2 Flow FiO2 Time Delivery Rate 02/10/19 87 20 95 Nasal 2.0 19:50 Cannula 02/10/19 99.2 142/61 19:49 (88) 02/09/19 28 02:45 Intake and Output 02/09/19 02/09/19 02/10/19 1414:59 22:59 06:59 IntakeIntake Total 450 ml 600 ml 520 ml OutputOutput Total 401 ml 750 ml BalanceBalance 450 ml 199 ml -230 ml Constitutional: alert Head: normocephalic, atraumatic Eyes: nl conjunctiva ENMT: nl external ears & nose Respiratory: clear to auscultation Cardiovascular: regular rate and rhythm Musculoskeletal: nl extremities to inspection Lymph: other Results Results 24hrs Laboratory Tests Test 02/10/19 04:22 Sodium Level 144 Potassium Level 4.2 Chloride Level 117 H Carbon Dioxide Level 20 L Anion Gap 7 Blood Urea Nitrogen 21 H Creatinine 1.15 Est Glomerular Filtrat Rate mL/min Glucose Level 87 Calcium Level 10.1 Magnesium Level 2.0 Medications Medication Current Medications Acetaminophen (Tylenol Tab) 650 mg Q4 PRN PO MILD PAIN(1-3)OR ELEVATED TEMP; Start 02/06/19 at 00:00 Acetylcysteine (Mucomyst) 2 ml Q6H RESP THERAPY NEB Last administered on at 19:50; Admin Dose 2 ML; Start 02/06/19 at 02:00 Apixaban (Eliquis) 2.5 mg BID PO Last administered on 02/10/19at 08:25; Admin Dose 2.5 MG; Start 02/06/19 at 09:00 Atorvastatin Calcium (Lipitor) 20 mg QHS PO Last administered on 02/09/19 21:14; Admin Dose 20 MG; Start 02/06/19 at 21:00 Bupropion HCl (Wellbutrin Xl) 300 mg DAILY PO Last administered on 02/10/19at 08:24; Admin Dose 300 MG; Start 02/06/19 at 09:00 Docusate Sodium (Colace) 100 mg QHS PO Last administered on 02/09/19 21:15; A dmin Dose 100 MG; Start 02/06/19 at 21:00 Fluticasone/ Vilanterol (Breo Ellipta 200-25 Mcg Inh) 1 inh DAILY INH Last administered on 02/10/19 08:24; Admin Dose 1 INH; Start 02/06/19 at 09:00 Guaifenesin (Mucinex) 600 mg BID PO Last administered on 02/10/19 08:24; Admin Dose 600 MG; Start 02/06/19 at 09:00 Mirtazapine (Remeron) 15 mg HS PO Last administered on 02/09/19 21:16; Admin Dose 15 MG; Start 02/06/19 at 21:00 Pantoprazole (Protonix Tab) 40 mg AC BREAKFAST PO Last administered on 08:24; Admin Dose 40 MG; Start 02/06/19 at 07:20 IV Flush (NS 3 ml) 3 ml PER PROTOCOL IV Last administered on 02/06/19 00:04; Admin Dose 3 ML; Start 02/06/19 at 00:00 Ondansetron HCl (Zofran Inj) 4 mg Q6H PRN IV NAUSEA/VOMITING; Start 02/06/19 at 00:00 Acetaminophen/ Hydrocodone Bitart ([place] (5/325)) 1 tab Q6H PRN PO .MOD PAIN 4- 6; Start 02/06/19 at 00:00 Morphine Sulfate (morphine) 1 mg Q4H PRN IV .SEVERE PAIN 7-10; Start 02/06/19 at 00:00 Magnesium Hydroxide (Milk Of Mag) 30 ml DAILY PRN PO .CONSTIPATION; Start 02/06/19 at 00:00 Sodium Biphosphate/ Sodium Phosphate (Fleet Enema) 133 ml DAILY PRN [place] .CONSTIPATION; Start 02/06/19 at 00:00 Miscellaneous Information (Pending [facility] Order For Wound Care) This patient sawyer... PRN PRN XX WOUND CARE; Start 02/06/19 at 08:00 Albuterol/ Ipratropium (Duoneb) 3 ml Q6H RESP THERAPY HHN Last administered on 02/10/19 19:50; Admin Dose 3 ML; Start 02/06/19 at 08:30 Diazepam (Valium) 2 mg QHS PRN PO agitation; Start 02/07/19 at 02:30 Metoprolol Tartrate (Lopressor) 25 mg BID PO Last administered on 4/15/19at 08:25; Admin Dose 25 MG; Start 02/09/19 at 21:00 BREEZY FRIAS MD Feb 10, 2019 21:22
[2019-02-11] MEDS: ALBUTEROL/IPRATROPIUM (NEB) 3 ML AMP HHN SCH ×4 (02:12→19:24)
[2019-02-11] MEDS: ACETYLCYSTEINE 20% 4 ML VIAL NEB SCH ×4 (02:12→19:24)
[2019-02-11 07:50] VITALS: BP 138/65; PULSE 82; RESP 18
[2019-02-11] MEDS: BUPROPION (XL) 150 MG TAB PO SCH (08:32)
[2019-02-11] MEDS: GUAIFENESIN LA 600 MG TABSR PO SCH ×2 (08:32→21:52)
[2019-02-11] MEDS: PANTOPRAZOLE (EC) 40 MG TAB PO SCH (08:32)
[2019-02-11] MEDS: METOPROLOL 25 MG TAB PO SCH ×2 (08:33→21:52)
[2019-02-11] MEDS: APIXABAN 5 MG TABLET PO SCH ×2 (08:33→21:52)
[2019-02-11] MEDS: BALSAM PERU/CASTOR OIL 60 GM TUBE TOP SCH ×2 (08:34→21:53)
[2019-02-11] MEDS: FLUTICASONE/VILANTEROL 200-25 INH DEVICE INH SCH (09:19)
[2019-02-11 15:43] VITALS: BP 138/62; PULSE 79; RESP 18
--- NOTE | 2019-02-11 18:47 | PN ---
Date/Time of Note Date/Time of Note DATE: 02/11/19 TIME: 18:44 Assessment/Plan VTE Prophylaxis Risk score (from [facility]s)>0 risk: 9 SCD applied (from [facility]): Yes Pharmacological prophylaxis: apixaban Lines/Catheters IV Catheter Type (from [facility]): Saline Lock Urinary Cath still in place: No Assessment/Plan Assessment/Plan (1) Lethargy/ Confusion Status: Resolved Comment: lethargy resolved with IV fluid hydration and IV antibiotics but patient still has episodes of confusions, pulling out ileostomy bag. Recheck CBC and cmp off IV meds and trial of low dose ativan for restlessness at night. (2) Dehydration Status: Resolved Comment: clinically improved. Recheck chem panel off IV fluids. (3) UTI (urinary tract infection) Status: Acute Comment: patient is growing enriqueta glabrata in the urine culture. Unclear if this is colonization or infection since patient is improved clinically on no antifungal medications. I will recheck urine analysis and urine culture and consult infectious disease for treatment if funguria persists since Enriqueta glabrata has high tendency for fluconazole resistance. (4) Weakness Status: Chronic Comment: patient cooperative and improving with physical therapy treatment. (5) Anxiety and depression Status: Chronic Comment: Depression controlled on wellbutrin in am and low dose of mirtazapine at night. 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 (8) Shoulder pain Status: Acute Comment: MRI notable for multiple tendinosis. Patient reports symptoms improved at this point. Result Diagram: 02/09/19 0428 02/10/19 0422 Results 24hrs Laboratory Tests Test 02/11/19 10:15 Urine Color JOHNATHAN Urine Clarity TURBID A Urine pH 5.0 Urine Specific [place] 1.018 Urine Ketones NEGATIVE Urine Nitrite NEGATIVE Urine Bilirubin NEGATIVE Urine Urobilinogen NEGATIVE Urine Leukocyte Esterase 3+ H Urine Microscopic RBC 149 H Urine Microscopic WBC > 182 H Urine Squamous Epithelial Cells FEW Urine Bacteria FEW A Urine Mucus FEW A Urine Yeast (Budding) FEW A Urine Hemoglobin 3+ H Urine Glucose NEGATIVE Urine Total Protein 2+ H Subjective 24 Hr Interval Summary Constitutional: no complaints Exam/Review of Systems Exam Vitals Vital Signs Date Temp Pulse Resp B/P (MAP) Pulse Ox O2 O2 Flow FiO2 Time Delivery Rate 02/11/19 98.3 79 18 138/62 99 Room Air 15:43 (87) 02/11/19 2.0 14:02 02/09/19 28 02:45 Intake and Output 02/10/19 02/10/19 02/11/19 1515:00 23:00 07:00 IntakeIntake Total 200 ml 400 ml OutputOutput Total 550 ml 700 ml BalanceBalance -350 ml -300 ml Constitutional: alert Psych: confusion Eyes: nl conjunctiva ENMT: nl external ears & nose Respiratory: clear to auscultation Cardiovascular: regular rate and rhythm Gastrointestinal: soft, other (bilateral ostomies) Musculoskeletal: nl extremities to inspection Results Results 24hrs Laboratory Tests Test 02/11/19 10:15 Urine Color JOHNATHAN Urine Clarity TURBID A Urine pH 5.0 Urine Specific [place] 1.018 Urine Ketones NEGATIVE Urine Nitrite NEGATIVE Urine Bilirubin NEGATIVE Urine Urobilinogen NEGATIVE Urine Leukocyte Esterase 3+ H Urine Microscopic RBC 149 H Urine Microscopic WBC > 182 H Urine Squamous Epithelial Cells FEW Urine Bacteria FEW A Urine Mucus FEW A Urine Yeast (Budding) FEW A Urine Hemoglobin 3+ H Urine Glucose NEGATIVE Urine Total Protein 2+ H Medications Medication Current Medications Acetaminophen (Tylenol Tab) 650 mg Q4 PRN PO MILD PAIN(1-3)OR ELEVATED TEMP; Start 02/06/19 at 00:00 Acetylcysteine (Mucomyst) 2 ml Q6H RESP THERAPY NEB Last administered on 02/11/19at 14:01; Admin Dose 2 ML; Start 02/06/19 at 02:00 Apixaban (Eliquis) 2.5 mg BID PO Last administered on 02/11/19at 08:33; Admin Dose 2.5 MG; Start 02/06/19 at 09:00 Atorvastatin Calcium (Lipitor) 20 mg QHS PO Last administered on 02/10/19 21:10; Admin Dose 20 MG; Start 02/06/19 at 21:00 Bupropion HCl (Wellbutrin Xl) 300 mg DAILY PO Last administered on 02/11/19at 08:32; Admin Dose 300 MG; Start 02/06/19 at 09:00 Docusate Sodium (Colace) 100 mg QHS PO Last administered on 02/10/19 21:10; Admin Dose 100 MG; Start 02/06/19 at 21:00 Fluticasone/ Vilanterol (Breo Ellipta 200-25 Mcg Inh) 1 inh DAILY INH Last administered on 02/11/19 09:19; Admin Dose 1 INH; Start 02/06/19 at 09:00 Guaifenesin (Mucinex) 600 mg BID PO Last administered on 02/11/19 08:32; Admin Dose 600 MG; Start 02/06/19 at 09:00 Mirtazapine (Remeron) 15 mg HS PO Last administered on 02/10/19 21:10; Admin Dose 15 MG; Start 02/06/19 at 21:00 Pantoprazole (Protonix Tab) 40 mg AC BREAKFAST PO Last administered on 02/11/19 08:32; Admin Dose 40 MG; Start 02/06/19 at 07:20 IV Flush (NS 3 ml) 3 ml PER PROTOCOL IV Last administered on 02/06/19 00:04; Admin Dose 3 ML; Start 02/06/19 at 00:00 Ondansetron HCl (Zofran Inj) 4 mg Q6H PRN IV NAUSEA/VOMITING; Start 02/06/19 at 00:00 Magnesium Hydroxide (Milk Of Mag) 30 ml DAILY PRN PO .CONSTIPATION; Start 02/06/19 at 00:00 Sodium Biphosphate/ Sodium Phosphate (Fleet Enema) 133 ml DAILY PRN [place] .CONSTIPATION; Start 02/06/19 at 00:00 Miscellaneous Information (Pending [facility] Order For Wound Care) This patient sawyer... PRN PRN XX WOUND CARE; Start 02/06/19 at 08:00 Albuterol/ Ipratropium (Duoneb) 3 ml Q6H RESP THERAPY HHN Last administered on 02/11/19at 14:01; Admin Dose 3 ML; Start 02/06/19 at 08:30 Metoprolol Tartrate (Lopressor) 25 mg BID PO Last administered on 02/11/19 08:33; Admin Dose 25 MG; Start 02/09/19 at 21:00 BREEZY FRIAS MD Feb 11, 2019 18:47
[2019-02-11 19:42] VITALS: BP 119/67; PULSE 64; RESP 18
[2019-02-11] MEDS: ATORVASTATIN 20 MG TAB PO SCH (21:52)
[2019-02-11] MEDS: MIRTAZAPINE 15 MG TAB PO SCH (21:52)
[2019-02-11] MEDS: DOCUSATE SODIUM 100 MG CAP PO SCH (21:52)
[2019-02-12] MEDS: ACETAMINOPHEN 325 MG TAB PO PRN (01:20)
[2019-02-12 02:18] VITALS: BP 122/71; PULSE 88; RESP 18
[2019-02-12] MEDS: ALBUTEROL/IPRATROPIUM (NEB) 3 ML AMP HHN SCH ×4 (02:23→20:32)
[2019-02-12] MEDS: ACETYLCYSTEINE 20% 4 ML VIAL NEB SCH ×4 (02:24→20:32)
[2019-02-12 08:33] VITALS: BP 140/60; PULSE 86; RESP 18
[2019-02-12 08:58] VITALS: BP 133/64; PULSE 63; RESP 18
[2019-02-12] MEDS: BUPROPION (XL) 150 MG TAB PO SCH (10:02)
[2019-02-12] MEDS: GUAIFENESIN LA 600 MG TABSR PO SCH ×2 (10:02→22:43)
[2019-02-12] MEDS: APIXABAN 5 MG TABLET PO SCH ×2 (10:02→22:44)
[2019-02-12] MEDS: PANTOPRAZOLE (EC) 40 MG TAB PO SCH (10:03)
[2019-02-12] MEDS: METOPROLOL 25 MG TAB PO SCH ×2 (10:03→22:50)
[2019-02-12] MEDS: BALSAM PERU/CASTOR OIL 60 GM TUBE TOP SCH ×2 (10:14→22:48)
[2019-02-12] MEDS: FLUTICASONE/VILANTEROL 200-25 INH DEVICE INH SCH (11:43)
--- NOTE | 2019-02-12 12:07 | CONS ---
Assessment/Plan Assessment/Plan Hospital Course (Demo Recall) 1) lethargy this seems to wax and wane pt's caregiver that last time he was in the hospital he got more lethargic from the meds he was given I doubt infection is causing his lethargy at this time 2) pyuria initial urine cx grew 50k c.glabrata and repeat shows <10k of c.alb I doubt either one is the cause of his pyuria agree to stopping of cefepime since he has neg cx for bacteria x2 I doubt he has an active UTI he may have some prostatitis and a trial of doxycycline to treat atypicals might be of benefit I will start doxycycline to treat possible prostatitis and if his pyuria does not resolve then I would recommend urology consult 3) COPD breathing is currently stable 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 5) hx of DVT 6) CAD 7) HTN 8) hx of CVA Consultation Date/Type/Reason Admit Date/Time Feb 05, 2019 at 20:14 Date of Consultation: Feb 12, 2019 Type of Consult ID Date/Time of Note DATE: 02/12/19 TIME: 11:49 Hx of Present Illness pt was admitted due to lethargy and found to have pyuria he quickly returned to baseline with hydration and cefepime he was presumed to have an UTI but his initial urine cx grew 50k of c.glabrata his WBC returned to baseline soon after admission CXR was neg he denies dysuria, abd pain, N, V, colostomy has soft/liquid stool present pt easily goes back to sleep after a few questions but re-awakens with further questioning. He had L shoulder pain for which MRI shows some tendon tears Past Medical History Medical History: cancer, congestive heart failure, GERD, high cholesterol, hy pertension, peptic ulcer disease, urinary tract infection Home Meds Active Scripts Ciprofloxacin Hcl* (Ciprofloxacin Hcl*) 250 Mg Tablet, 250 MG PO BID for 7 Days, #14 TAB Prov:BREEZY FRIAS MD 01/31/19 Guaifenesin (Guaifenesin) 600 Mg Tablet.sa, 600 MG PO BID for 30 Days, #60 Prov:BREEZY FRIAS MD 01/31/19 Acetylcysteine* (Mucomyst*) 4 Ml Soln, 2 ML NEB Q6H RESP THERAPY for 30 Days, #1 BOTTLE Prov:BREEZY FRIAS MD 01/31/19 Bupropion Hcl* (Bupropion XL*) 150 Mg Tab.er.24h, 300 MG PO DAILY for 30 Days, #30 Prov:BREEZY FRIAS MD 01/31/19 Reported Medications Fluticasone/Vilanterol (Breo Ellipta 200-25 Mcg INH) 1 Each Blst.w.dev, 1 PUFF INHALATION DAILY, #1 INHALER 01/09/19 Diltiazem Hcl (Diltiazem) 120 Mg Capsr, 120 MG PO QAM, #30 CAP 01/09/19 Pantoprazole* (Pantoprazole*) 40 Mg Tablet.dr, 40 MG PO AC BREAKFAST, TAB 01/09/19 Mirtazapine* (Mirtazapine*) 15 Mg Tablet, 15 MG PO HS, TAB 01/09/19 Metoprolol Tartrate* (Lopressor*) 50 Mg Tab, 50 MG PO BID, #60 TAB 01/09/19 Docusate Sodium* (Colace*) 100 Mg Capsule, 100 MG PO QHS, #30 CAP 01/09/19 Diazepam* (Diazepam*) 2 Mg Tablet, 2 MG PO QHS, TAB 01/09/19 Atorvastatin Calcium* (Atorvastatin Calcium*) 20 Mg Tablet, 20 MG PO QHS, #30 TAB 01/09/19 Acetaminophen* (Acetaminophen*) 325 Mg Tablet, 650 MG PO NEEDED PRN for PAIN AND OR ELEVATED TEMP, #30 TAB 01/09/19 Apixaban* (Eliquis*) 5 Mg Tablet, 5 MG PO BID, TAB 01/09/19 Medications Current Medications Acetaminophen (Tylenol Tab) 650 mg Q4 PRN PO MILD PAIN(1-3)OR ELEVATED TEMP Last administered on 02/12/19at 01:20; Admin Dose 650 MG; Start 02/06/19 at 00:00 Acetylcysteine (Mucomyst) 2 ml Q6H RESP THERAPY NEB Last administered on 02/12/19at 08:21; Admin Dose 2 ML; Start 02/06/19 at 02:00 Apixaban (Eliquis) 2.5 mg BID PO Last administered on 02/12/19at 10:02; Admin Dose 2.5 MG; Start 02/06/19 at 09:00 Atorvastatin Calcium (Lipitor) 20 mg QHS PO Last administered on 02/11/19 21:52; Admin Dose 20 MG; Start 02/06/19 at 21:00 Bupropion HCl (Wellbutrin Xl) 300 mg DAILY PO Last administered on 02/12/19 10:02; Admin Dose 300 MG; Start 02/06/19 at 09:00 Docusate Sodium (Colace) 100 mg QHS PO Last administered on 02/11/19 21:52; Admin Dose 100 MG; Start 02/06/19 at 21:00 Fluticasone/ Vilanterol (Breo Ellipta 200-25 Mcg Inh) 1 inh DAILY INH Last administered on 02/12/19 11:43; Admin Dose 1 INH; Start 02/06/19 at 09:00 Guaifenesin (Mucinex) 600 mg BID PO Last administered on 02/12/19 10:02; Admin Dose 600 MG; Start 02/06/19 at 09:00 Mirtazapine (Remeron) 15 mg HS PO Last administered on 02/11/19 21:52; Admin Dose 15 MG; Start 02/06/19 at 21:00 Pantoprazole (Protonix Tab) 40 mg AC BREAKFAST PO Last administered on 10:03; Admin Dose 40 MG; Start 02/06/19 at 07:20 IV Flush (NS 3 ml) 3 ml PER PROTOCOL IV Last administered on 02/06/19at 00:04; Admin Dose 3 ML; Start 02/06/19 at 00:00 Ondansetron HCl (Zofran Inj) 4 mg Q6H PRN IV NAUSEA/VOMITING; Start 02/06/19 at 00:00 Magnesium Hydroxide (Milk Of Mag) 30 ml DAILY PRN PO .CONSTIPATION; Start 02/06/19 at 00:00 Sodium Biphosphate/ Sodium Phosphate (Fleet Enema) 133 ml DAILY PRN [place] .CONSTIPATION; Start 02/06/19 at 00:00 Misc[facility] This patient sawyer... PRN PRN XX WOUND CARE; Start 02/06/19 at 08:00 Albuterol/ Ipratropium (Duoneb) 3 ml Q6H RESP THERAPY HHN Last administered on 02/12/19 08:21; Admin Dose 3 ML; Start 02/06/19 at 08:30 Metoprolol Tartrate (Lopressor) 25 mg BID PO Last administered on 02/12/19at 10:03; Admin Dose 25 MG; Start 02/09/19 at 21:00 Allergies: Coded Allergies: No Known Allergy (Unverified , 02/05/19) Past Surgical History Past Surgical Hx: angioplasty, bowel resection, other Social History Alcohol Use: occasionally Smoking Status: Former smoker Drug Use: none Exam/Review of Systems Exam Vitals Vital Signs Date Temp Pulse Resp B/P (MAP) Pulse Ox O2 O2 Flow FiO2 Time Delivery Rate 02/12/19 98.0 63 18 133/64 98 Room Air 08:58 (87) 02/12/19 21 02:26 02/11/19 2.0 20:00 Intake and Output 02/11/19 02/11/19 02/12/19 1515:00 23:00 07:00 IntakeIntake Total 200 ml 240 ml OutputOutput Total 1000 ml 650 ml BalanceBalance -800 ml -410 ml Exam pt answers some questions then falls back asleep but re-awaken with further questioning he denies F, C, NS no N, V, abd pain no dysuria Head: normocephalic Eyes: nl sclera Respiratory: clear to auscultation Cardiovascular: regular rate and rhythm Gastrointestinal: soft, non-tender Extremities: other (no edema) Results Result Diagram: 02/09/19 0428 02/10/19 0422 Medications Medication Current Medications Acetaminophen (Tylenol Tab) 650 mg Q4 PRN PO MILD PAIN(1-3)OR ELEVATED TEMP Last administered on 02/12/19at 01:20; Admin Dose 650 MG; Start 02/06/19 at 00:00 Acetylcysteine (Mucomyst) 2 ml Q6H RESP THERAPY NEB Last administered on 02/12/19at 08:21; Admin Dose 2 ML; Start 02/06/19 at 02:00 Apixaban (Eliquis) 2.5 mg BID PO Last administered on 02/12/19at 10:02; Admin Dose 2.5 MG; Start 02/06/19 at 09:00 Atorvastatin Calcium (Lipitor) 20 mg QHS PO Last administered on 02/11/19at 21:52; Admin Dose 20 MG; Start 02/06/19 at 21:00 Bupropion HCl (Wellbutrin Xl) 300 mg DAILY PO Last administered on 02/12/19 10:02; Admin Dose 300 MG; Start 02/06/19 at 09:00 Docusate Sodium (Colace) 100 mg QHS PO Last administered on 02/11/19 21:52; Admin Dose 100 MG; Start 02/06/19 at 21:00 Fluticasone/ Vilanterol (Breo Ellipta 200-25 Mcg Inh) 1 inh DAILY INH Last administered on 02/12/19 11:43; Admin Dose 1 INH; Start 02/06/19 at 09:00 Guaifenesin (Mucinex) 600 mg BID PO Last administered on 02/12/19 10:02; Admin Dose 600 MG; Start 02/06/19 at 09:00 Mirtazapine (Remeron) 15 mg HS PO Last administered on 02/11/19 21:52; Admin Dose 15 MG; Start 02/06/19 at 21:00 Pantoprazole (Protonix Tab) 40 mg AC BREAKFAST PO Last administered on 9at 10:03; Admin Dose 40 MG; Start 02/06/19 at 07:20 IV Flush (NS 3 ml) 3 ml PER PROTOCOL IV Last administered on 02/06/19at 00:04; Admin Dose 3 ML; Start 02/06/19 at 00:00 Ondansetron HCl (Zofran Inj) 4 mg Q6H PRN IV NAUSEA/VOMITING; Start 02/06/19 at 00:00 Magnesium Hydroxide (Milk Of Mag) 30 ml DAILY PRN PO .CONSTIPATION; Start 02/06/19 at 00:00 Sodium Biphosphate/ Sodium Phosphate (Fleet Enema) 133 ml DAILY PRN [place] .CONSTIPATION; Start 02/06/19 at 00:00 Miscellaneous Information (Pending [facility] Order For Wound Care) This patient sawyer... PRN PRN XX WOUND CARE; Start 02/06/19 at 08:00 Albuterol/ Ipratropium (Duoneb) 3 ml Q6H RESP THERAPY HHN Last administered on 02/12/19 08:21; Admin Dose 3 ML; Start 02/06/19 at 08:30 Metoprolol Tartrate (Lopressor) 25 mg BID PO Last administered on 02/12/19at 10:03; Admin Dose 25 MG; Start 02/09/19 at 21:00 MIGUELITO VASQUEZ MD Feb 12, 2019 12:02
[2019-02-12 14:00] VITALS: BP 134/66; PULSE 68; RESP 18
--- NOTE | 2019-02-12 18:07 | PN ---
Date/Time of Note Date/Time of Note DATE: 02/12/19 TIME: 18:07 Assessment/Plan VTE Prophylaxis Risk score (from Ns)>0 risk: 3 SCD applied (from [facility]): Yes Pharmacological prophylaxis: apixaban Lines/Catheters IV Catheter Type (from [facility]): Saline Lock Urinary Cath still in place: No Assessment/Plan Problems: (1) Abnormal urinalysis Status: Acute Comment: Urine culture is now growing Emily albicans. I agree with Dr. Taylor's assessment and trial of doxycycline for possible prostatitis. (2) Confusion Status: Chronic Comment: currently at baseline. (3) Weakness Status: Chronic Comment: Will discuss with patients regarding discharge plans. 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 Exam/Review of Systems Exam Vitals Vital Signs Date Temp Pulse Resp B/P (MAP) Pulse Ox O2 O2 Flow FiO2 Time Delivery Rate 02/12/19 95 20 97 Nasal 2.0 14:07 Cannula 02/12/19 97.9 134/66 14:00 (88) 02/12/19 21 02:26 Intake and Output 02/11/19 02/11/19 02/12/19 1414:59 22:59 06:59 IntakeIntake Total 200 ml 240 ml OutputOutput Total 1000 ml 650 ml BalanceBalance -800 ml -410 ml Head: normocephalic, atraumatic Respiratory: clear to auscultation Cardiovascular: regular rate and rhythm Gastrointestinal: other (bilateral ostomy bags.) Musculoskeletal: nl extremities to inspection Medications Medication Current Medications Acetaminophen (Tylenol Tab) 650 mg Q4 PRN PO MILD PAIN(1-3)OR ELEVATED TEMP Last administered on 02/12/19at 01:20; Admin Dose 650 MG; Start 02/06/19 at 00:00 Acetylcysteine (Mucomyst) 2 ml Q6H RESP THERAPY NEB Last administered on 02/12/19 13:52; Admin Dose 2 ML; Start 02/06/19 at 02:00 Apixaban (Eliquis) 2.5 mg BID PO Last administered on 02/12/19 10:02; Admin Dose 2.5 MG; Start 02/06/19 at 09:00 Atorvastatin Calcium (Lipitor) 20 mg QHS PO Last administered on 02/11/19 21:52; Admin Dose 20 MG; Start 02/06/19 at 21:00 Bupropion HCl (Wellbutrin Xl) 300 mg DAILY PO Last administered on 02/12/19 1 0:02; Admin Dose 300 MG; Start 02/06/19 at 09:00 Docusate Sodium (Colace) 100 mg QHS PO Last administered on 02/11/19 21:52; Admin Dose 100 MG; Start 02/06/19 at 21:00 Fluticasone/ Vilanterol (Breo Ellipta 200-25 Mcg Inh) 1 inh DAILY INH Last administered on 02/12/19 11:43; Admin Dose 1 INH; Start 02/06/19 at 09:00 Guaifenesin (Mucinex) 600 mg BID PO Last administered on 02/12/19 10:02; Admin Dose 600 MG; Start 02/06/19 at 09:00 Mirtazapine (Remeron) 15 mg HS PO Last administered on 02/11/19 21:52; Admin Dose 15 MG; Start 02/06/19 at 21:00 Pantoprazole (Protonix Tab) 40 mg AC BREAKFAST PO Last administered on 02/12/19 10:03; Admin Dose 40 MG; Start 02/06/19 at 07:20 IV Flush (NS 3 ml) 3 ml PER PROTOCOL IV Last administered on 02/06/19 00:04; Admin Dose 3 ML; Start 02/06/19 at 00:00 Ondansetron HCl (Zofran Inj) 4 mg Q6H PRN IV NAUSEA/VOMITING; Start 02/06/19 at 00:00 Magnesium Hydroxide (Milk Of Mag) 30 ml DAILY PRN PO .CONSTIPATION; Start 02/06/19 at 00:00 Sodium Biphosphate/ Sodium Phosphate (Fleet Enema) 133 ml DAILY PRN [place] .CONSTIPATION; Start 02/06/19 at 00:00 Miscellaneous Information (Pending [facility] Order For Wound Care) This patient sawyer... PRN PRN XX WOUND CARE; Start 02/06/19 at 08:00 Albuterol/ Ipratropium (Duoneb) 3 ml Q6H RESP THERAPY HHN Last administered on 02/12/19at 13:52; Admin Dose 3 ML; Start 02/06/19 at 08:30 Metoprolol Tartrate (Lopressor) 25 mg BID PO Last administered on 02/12/19at 10:03; Admin Dose 25 MG; Start 02/09/19 at 21:00 Doxycycline Hyclate (Vibramycin) 100 mg BID PO ; Start 02/12/19 at 21:00 BREEZY FRIAS MD Feb 12, 2019 18:07
[2019-02-12 19:30] VITALS: BP 139/80; PULSE 76; RESP 20
[2019-02-12] MEDS: DOCUSATE SODIUM 100 MG CAP PO SCH (22:43)
[2019-02-12] MEDS: DOXYCYCLINE 100 MG TAB PO SCH (22:43)
[2019-02-12] MEDS: MIRTAZAPINE 15 MG TAB PO SCH (22:43)
[2019-02-12] MEDS: ATORVASTATIN 20 MG TAB PO SCH (22:43)
[2019-02-13] MEDS: ACETYLCYSTEINE 20% 4 ML VIAL NEB SCH ×5 (02:07→20:22)
[2019-02-13] MEDS: ALBUTEROL/IPRATROPIUM (NEB) 3 ML AMP HHN SCH ×5 (02:07→20:22)
[2019-02-13 02:10] VITALS: BP 136/59; PULSE 71; RESP 20
[2019-02-13] MEDS: PANTOPRAZOLE (EC) 40 MG TAB PO SCH (06:27)
--- NOTE | 2019-02-13 07:19 | CONS ---
Assessment/Plan Assessment/Plan Hospital Course (Demo Recall) 1) lethargy this seems to wax and wane pt's caregiver that last time he was in the hospital he got more lethargic from the meds he was given I doubt infection is causing his lethargy at this time 2) pyuria initial urine cx grew 50k c.glabrata and repeat shows <10k of c.alb I doubt either one is the cause of his pyuria agree to stopping of cefepime since he has neg cx for bacteria x2 I doubt he has an active UTI he may have some prostatitis and a trial of doxycycline to treat atypicals might be of benefit I will start doxycycline to treat possible prostatitis and if his pyuria does not resolve then I would recommend urology consult 02/13 - pt tolerating his doxycycline so far, continue for one month and re-check u/a, urine cx 1 week after he is done with his antibiotics 3) COPD breathing is currently stable 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 5) hx of DVT 6) CAD 7) HTN 8) hx of CVA Consultation Date/Type/Reason Admit Date/Time Feb 05, 2019 at 20:14 Initial Consult Date 02/12/19 Type of Consult ID Date/Time of Note DATE: 02/13/19 TIME: 07:17 24 HR Interval Summary Free Text/Dictation spoke to nurse pt sleeps mostly but does wake up and follow commands he is eating and taking his meds no choking on food watery/mushy stools in colostomy Exam/Review of Systems Exam Vitals Vital Signs Date Temp Pulse Resp B/P (MAP) Pulse Ox O2 O2 Flow FiO2 Time Delivery Rate 02/13/19 97.8 71 20 136/59 93 Room Air 02:10 (84) 02/13/19 3.0 02:08 02/12/19 21 02:26 Intake and Output 02/12/19 02/12/19 02/13/19 1515:00 23:00 07:00 IntakeIntake Total 300 ml OutputOutput Total 400 ml BalanceBalance -100 ml Exam opens eyes only for me Eyes: nl sclera Respiratory: clear to auscultation Cardiovascular: regular rate and rhythm Gastrointestinal: soft, non-tender Results Result Diagram: 02/13/19 0500 02/13/19 0500 Results 24hrs Laboratory Tests Test 02/13/19 05:00 White Blood Count 9.7 Red Blood Count 3.67 L Hemoglobin 10.1 L Hematocrit 33.0 L Mean Corpuscular Volume 89.9 Mean Corpuscular Hemoglobin 27.5 L Mean Corpuscular Hemoglobin Concent 30.6 L Red Cell Distribution Width 16.1 H Platelet Count 198 Mean Platelet Volume 11.7 H Immature Granulocytes % 0.300 Neutrophils % 71.4 Lymphocytes % 13.5 L Monocytes % 10.8 Eosinophils % 3.5 Basophils % 0.5 Nucleated Red Blood Cells % 0.0 Immature Granulocytes # 0.030 Neutrophils # 6.9 Lymphocytes # 1.3 Monocytes # 1.1 H Eosinophils # 0.3 Basophils # 0.1 Nucleated Red Blood Cells # 0.0 Sodium Level 144 Potassium Level 4.8 Chloride Level 112 H Carbon Dioxide Level 23 Anion Gap 9 Blood Urea Nitrogen 30 H Creatinine 1.37 H Est Glomerular Filtrat Rate mL/min Glucose Level 113 Calcium Level 10.6 H Total Bilirubin 0.1 L Direct Bilirubin 0.00 Indirect Bilirubin 0.1 Aspartate Amino Transf (AST/SGOT) 13 L Alanine Aminotransferase (ALT/SGPT) < 6 L Alkaline Phosphatase 86 Total Protein 7.4 Albumin 3.5 Globulin 3.90 H Albumin/Globulin Ratio 0.89 Medications Medication Current Medications Acetaminophen (Tylenol Tab) 650 mg Q4 PRN PO MILD PAIN(1-3)OR ELEVATED TEMP Last administered on 02/12/19 01:20; Admin Dose 650 MG; Start 02/06/19 at 00:00 Acetylcysteine (Mucomyst) 2 ml Q6H RESP THERAPY NEB Last administered on 02/13/19 02:07; Admin Dose 2 ML; Start 02/06/19 at 02:00 Apixaban (Eliquis) 2.5 mg BID PO Last administered on 02/12/19 22:44; Admin Dose 2.5 MG; Start 02/06/19 at 09:00 Atorvastatin Calcium (Lipitor) 20 mg QHS PO Last administered on 02/12/19 22:43; Admin Dose 20 MG; Start 02/06/19 at 21:00 Bupropion HCl (Wellbutrin Xl) 300 mg DAILY PO Last administered on 02/12/19at 10:02; Admin Dose 300 MG; Start 02/06/19 at 09:00 Docusate Sodium (Colace) 100 mg QHS PO Last administered on 02/12/19 22:43; Admin Dose 100 MG; Start 02/06/19 at 21:00 Fluticasone/ Vilanterol (Breo Ellipta 200-25 Mcg Inh) 1 inh DAILY INH Last administered on 02/12/19 11:43; Admin Dose 1 INH; Start 02/06/19 at 09:00 Guaifenesin (Mucinex) 600 mg BID PO Last administered on 02/12/19 22:43; Admin Dose 600 MG; Start 02/06/19 at 09:00 Mirtazapine (Remeron) 15 mg HS PO Last administered on 02/12/19 22:43; Admin Dose 15 MG; Start 02/06/19 at 21:00 Pantoprazole (Protonix Tab) 40 mg AC BREAKFAST PO Last administered on 02/13/19 06:27; Admin Dose 40 MG; Start 02/06/19 at 07:20 IV Flush (NS 3 ml) 3 ml PER PROTOCOL IV Last administered on 02/06/19at 00:04; Admin Dose 3 ML; Start 02/06/19 at 00:00 Ondansetron HCl (Zofran Inj) 4 mg Q6H PRN IV NAUSEA/VOMITING; Start 02/06/19 at 00:00 Magnesium Hydroxide (Milk Of Mag) 30 ml DAILY PRN PO .CONSTIPATION; Start 02/06/19 at 00:00 Sodium Biphosphate/ Sodium Phosphate (Fleet Enema) [address] . CONSTIPATION; Start 02/06/19 at 00:00 Miscellaneous Information (Pending [facility] Order For Wound Care) This patient sawyer... PRN PRN XX WOUND CARE; Start 02/06/19 at 08:00 Albuterol/ Ipratropium (Duoneb) 3 ml Q6H RESP THERAPY HHN Last administered on 02/13/19 02:07; Admin Dose 3 ML; Start 02/06/19 at 08:30 Metoprolol Tartrate (Lopressor) 25 mg BID PO Last administered on 02/12/19 22:50; Admin Dose 25 MG; Start 02/09/19 at 21:00 Doxycycline Hyclate (Vibramycin) 100 mg BID PO Last administered on 02/12/19 22:43; Admin Dose 100 MG; Start 4/17/19 at 21:00 MIGUELITO VASQUEZ MD Feb 13, 2019 07:19
[2019-02-13 09:02] VITALS: BP 115/55; PULSE 80; RESP 18
[2019-02-13] MEDS: APIXABAN 5 MG TABLET PO SCH ×2 (09:17→21:28)
[2019-02-13] MEDS: GUAIFENESIN LA 600 MG TABSR PO SCH ×2 (09:17→21:26)
[2019-02-13] MEDS: METOPROLOL 25 MG TAB PO SCH ×2 (09:18→21:28)
[2019-02-13] MEDS: BUPROPION (XL) 150 MG TAB PO SCH (09:18)
[2019-02-13] MEDS: DOXYCYCLINE 100 MG TAB PO SCH ×2 (09:18→21:26)
[2019-02-13] MEDS: BALSAM PERU/CASTOR OIL 60 GM TUBE TOP SCH ×2 (09:19→21:29)
[2019-02-13] MEDS: FLUTICASONE/VILANTEROL 200-25 INH DEVICE INH SCH (09:19)
[2019-02-13 16:28] VITALS: BP 129/62; PULSE 80; RESP 18
[2019-02-13 19:20] VITALS: BP 150/65; PULSE 93; RESP 20
[2019-02-13] MEDS: DOCUSATE SODIUM 100 MG CAP PO SCH (21:00)
[2019-02-13] MEDS: MIRTAZAPINE 15 MG TAB PO SCH (21:28)
[2019-02-13] MEDS: ATORVASTATIN 20 MG TAB PO SCH (21:28)
--- NOTE | 2019-02-14 00:06 | PN ---
Date/Time of Note Date/Time of Note DATE: 02/14/19 TIME: 00:03 Assessment/Plan VTE Prophylaxis Risk score (from Nsg)>0 risk: 3 SCD applied (from Nsg): Yes Pharmacological prophylaxis: apixaban Lines/Catheters IV Catheter Type (from Nrsg): Saline Lock Urinary Cath still in place: No Assessment/Plan Problems: (1) Prostatitis Status: Chronic Comment: Will treat for possible prostatitis with doxycycline for 1 month per ID recommendation. (2) Weakness Status: Chronic Comment: Discussed with son since patient's is out of town. Will discharge to [facility] for continued physical therapy / rehab. (3) Confusion Status: Chronic Comment: intermittent lethargy is baseline per family. (4) COPD (chronic obstructive pulmonary disease) Status: Chronic Comment: stable on meds. 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 Comment: on eliquis (6) Anxiety and depression Status: Chronic Comment: continue current meds (7) Lethargy Status: Resolved (8) Dehydration Status: Resolved (9) Shoulder pain Status: Resolved Qualifiers: Chronicity: acute Laterality: left Qualified Codes: M25.512 - Pain in left shoulder Result Diagram: 02/13/19 0500 02/13/19 0500 Results 24hrs Laboratory Tests Test 02/13/19 05:00 White Blood Count 9.7 Red Blood Count 3.67 L Hemoglobin 10.1 L Hematocrit 33.0 L Mean Corpuscular Volume 89.9 Mean Corpuscular Hemoglobin 27.5 L Mean Corpuscular Hemoglobin Concent 30.6 L Red Cell Distribution Width 16.1 H Platelet Count 198 Mean Platelet Volume 11.7 H Immature Granulocytes % 0.300 Neutrophils % 71.4 Lymphocytes % 13.5 L Monocytes % 10.8 Eosinophils % 3.5 Basophils % 0.5 Nucleated Red Blood Cells % 0.0 Immature Granulocytes # 0.030 Neutrophils # 6.9 Lymphocytes # 1.3 Monocytes # 1.1 H Eosinophils # 0.3 Basophils # 0.1 Nucleated Red Blood Cells # 0.0 Sodium Level 144 Potassium Level 4.8 Chloride Level 112 H Carbon Dioxide Level 23 Anion Gap 9 Blood Urea Nitrogen 30 H Creatinine 1.37 H Est Glomerular Filtrat Rate mL/min Glucose Level 113 Calcium Level 10.6 H Total Bilirubin 0.1 L Direct Bilirubin 0.00 Indirect Bilirubin 0.1 Aspartate Amino Transf (AST/SGOT) 13 L Alanine Aminotransferase (ALT/SGPT) < 6 L Alkaline Phosphatase 86 Total Protein 7.4 Albumin 3.5 Globulin 3.90 H Albumin/Globulin Ratio 0.89 Subjective 24 Hr Interval Summary Constitutional: no complaints Exam/Review of Systems Exam Vitals Vital Signs Date Temp Pulse Resp B/P (MAP) Pulse Ox O2 O2 Flow FiO2 Time Delivery Rate 02/13/19 93 20 94 Nasal 3.0 20:22 Cannula 02/13/19 97.5 150/65 19:20 (93) 02/12/19 21 02:26 Intake and Output 02/13/19 02/13/19 02/14/19 1515:00 23:00 07:00 IntakeIntake Total 200 ml 200 ml OutputOutput Total 700 ml 600 ml BalanceBalance -500 ml -400 ml Constitutional: alert, oriented Head: normocephalic, atraumatic ENMT: nl external ears & nose Cardiovascular: regular rate and rhythm Musculoskeletal: nl extremities to inspection Results Results 24hrs Laboratory Tests Test 02/13/19 05:00 White Blood Count 9.7 Red Blood Count 3.67 L Hemoglobin 10.1 L Hematocrit 33.0 L Mean Corpuscular Volume 89.9 Mean Corpuscular Hemoglobin 27.5 L Mean Corpuscular Hemoglobin Concent 30.6 L Red Cell Distribution Width 16.1 H Platelet Count 198 Mean Platelet Volume 11.7 H Immature Granulocytes % 0.300 Neutrophils % 71.4 Lymphocytes % 13.5 L Monocytes % 10.8 Eosinophils % 3.5 Basophils % 0.5 Nucleated Red Blood Cells % 0.0 Immature Granulocytes # 0.030 Neutrophils # 6.9 Lymphocytes # 1.3 Monocytes # 1.1 H Eosinophils # 0.3 Basophils # 0.1 Nucleated Red Blood Cells # 0.0 Sodium Level 144 Potassium Level 4.8 Chloride Level 112 H Carbon Dioxide Level 23 Anion Gap 9 Blood Urea Nitrogen 30 H Creatinine 1.37 H Est Glomerular Filtrat Rate mL/min Glucose Level 113 Calcium Level 10.6 H Total Bilirubin 0.1 L Direct Bilirubin 0.00 Indirect Bilirubin 0.1 Aspartate Amino Transf (AST/SGOT) 13 L Alanine Aminotransferase (ALT/SGPT) < 6 L Alkaline Phosphatase 86 Total Protein 7.4 Albumin 3.5 Globulin 3.90 H Albumin/Globulin Ratio 0.89 Medications Medication Current Medications Acetaminophen (Tylenol Tab) 650 mg Q4 PRN PO MILD PAIN(1-3)OR ELEVATED TEMP Last administered on 02/12/19 01:20; Admin Dose 650 MG; Start 02/06/19 at 00:00 Acetylcysteine (Mucomyst) 2 ml Q6H RESP THERAPY NEB Last administered on 02/13/19 20:22; Admin Dose 2 ML; Start 02/06/19 at 02:00 Apixaban (Eliquis) 2.5 mg BID PO Last administered on 02/13/19 21:28; Admin Dose 2.5 MG; Start 02/06/19 at 09:00 Atorvastatin Calcium (Lipitor) 20 mg QHS PO Last administered on 02/13/19 21:28; Admin Dose 20 MG; Start 02/06/19 at 21:00 Bupropion HCl (Wellbutrin Xl) 300 mg DAILY PO Last administered on 02/13/19 09:18; Admin Dose 300 MG; Start 02/06/19 at 09:00 Docusate Sodium (Colace) 100 mg QHS PO Last administered on 02/12/19 22:43; Admin Dose 100 MG; Start 02/06/19 at 21:00 Fluticasone/ Vilanterol (Breo Ellipta 200-25 Mcg Inh) 1 inh DAILY INH Last administered on 02/13/19 09:19; Admin Dose 1 INH; Start 02/06/19 at 09:00 Guaifenesin (Mucinex) 600 mg BID PO Last administered on 02/13/19 21:26; Admin Dose 600 MG; Start 02/06/19 at 09:00 Mirtazapine (Remeron) 15 mg HS PO Last administered on 02/13/19 21:28; Admin Dose 15 MG; Start 02/06/19 at 21:00 Pantoprazole (Protonix Tab) 40 mg AC BREAKFAST PO Last administered on 02/13/19 06:27; Admin Dose 40 MG; Start 02/06/19 at 07:20 IV Flush (NS 3 ml) 3 ml PER PROTOCOL IV Last administered on 02/06/19 00:04; Admin Dose 3 ML; Start 02/06/19 at 00:00 Ondansetron HCl (Zofran Inj) 4 mg Q6H PRN IV NAUSEA/VOMITING; Start 02/06/19 at 00:00 Magnesium Hydroxide (Milk Of Mag) 30 ml DAILY PRN PO .CONSTIPATION; Start 02/06/19 at 00:00 Sodium Biphosphate/ Sodium Phosphate (Fleet Enema) 133 ml DAILY PRN [place] .CONSTIPATION; Start 02/06/19 at 00:00 [facility] This patient sawyer... PRN PRN XX WOUND CARE; Start 02/06/19 at 08:00 Albuterol/ Ipratropium (Duoneb) 3 ml Q6H RESP THERAPY HHN Last administered on 02/13/19at 20:22; Admin Dose 3 ML; Start 02/06/19 at 08:30 Metoprolol Tartrate (Lopressor) 25 mg BID PO Last administered on 02/13/19at 21:28; Admin Dose 25 MG; Start 02/09/19 at 21:00 Doxycycline Hyclate (Vibramycin) 100 mg BID PO Last administered on 02/13/19at 21:26; Admin Dose 100 MG; Start 02/12/19 at 21:00 BREEZY FRIAS MD Feb 14, 2019 00:06
[2019-02-14] MEDS: ACETYLCYSTEINE 20% 4 ML VIAL NEB SCH ×4 (01:28→21:30)
[2019-02-14] MEDS: ALBUTEROL/IPRATROPIUM (NEB) 3 ML AMP HHN SCH ×4 (01:28→21:30)
[2019-02-14 02:40] VITALS: BP 146/65; PULSE 98; RESP 20
[2019-02-14] MEDS: PANTOPRAZOLE (EC) 40 MG TAB PO SCH (06:26)
[2019-02-14 07:39] VITALS: BP 143/108; PULSE 77; RESP 17
[2019-02-14] MEDS: BALSAM PERU/CASTOR OIL 60 GM TUBE TOP SCH ×2 (09:00→21:17)
[2019-02-14] MEDS: FLUTICASONE/VILANTEROL 200-25 INH DEVICE INH SCH (09:33)
[2019-02-14] MEDS: METOPROLOL 25 MG TAB PO SCH ×2 (09:33→21:19)
[2019-02-14] MEDS: GUAIFENESIN LA 600 MG TABSR PO SCH ×2 (09:33→21:15)
[2019-02-14] MEDS: APIXABAN 5 MG TABLET PO SCH ×2 (09:34→21:14)
[2019-02-14] MEDS: DOXYCYCLINE 100 MG TAB PO SCH ×2 (09:38→21:16)
[2019-02-14] MEDS: BUPROPION (XL) 150 MG TAB PO SCH (10:05)
[2019-02-14 14:02] VITALS: BP 138/68; PULSE 74; RESP 18
[2019-02-14 19:25] VITALS: BP 129/65; PULSE 90; RESP 20
--- NOTE | 2019-02-14 20:10 | DS ---
Date/Time of Note Date/Time of Note DATE: 02/14/19 TIME: 19:53 Discharge Summary Admission/Discharge Info Admit Date/Time Feb 05, 2019 at 20:14 Discharge Date/Time Discharge Diagnosis Lethargy/altered mental status Dehydration Shoulder tendonitis Weakness Funguria Prostatitis Depression Anxiety Dementia COPD CHF DVT Patient Condition: Fair Consults Infectious Disease. Hx of Present Illness 83-year-old male brought in by his family members for progressive lethargy over the past two days so that he was unable to wake up to take his medications or eat. Work up in the emergency room shows elevated WBC, bun/creatinine and abnormal urine suggestive of dehydration and urosepsis and patient is admitted for IV antibiotics and IV fluid hydration. Hospital Course Patient was admitted with altered mental status and acute dehydration and leukouria. His mental status and dehydration improved with IV fluids and cefepime which were stopped when urine culture grew vijay glabata but no bacteria. Repeat cath UA still shows marked leukouria but culture grew vijay albicans. ID consult recommended treatment for prostatitis with 1 month of doxycycline. Patient was able to feed himself but needs full assist in transfer and ambulation even with PT treatment for a week. Will need rehab placement for continued therapy or discharge to home with real time analyst care and home health PT. Home Meds Active Scripts Ciprofloxacin Hcl* (Ciprofloxacin Hcl*) 250 Mg Tablet, 250 MG PO BID for 7 Days, #14 TAB Prov:BREEZY FRIAS MD 01/31/19 Guaifenesin (Guaifenesin) 600 Mg Tablet.sa, 600 MG PO BID for 30 Days, #60 Prov:BREEZY FRIAS MD 01/31/19 Acetylcysteine* (Mucomyst*) 4 Ml Soln, 2 ML NEB Q6H RESP THERAPY for 30 Days, #1 BOTTLE Prov:BREEZY FRIAS MD 01/31/19 Bupropion Hcl* (Bupropion XL*) 150 Mg Tab.er.24h, 300 MG PO DAILY for 30 Days, #30 Prov:BREEZY FRIAS MD 01/31/19 Reported Medications Fluticasone/Vilanterol (Breo Ellipta 200-25 Mcg INH) 1 Each Blst.w.dev, 1 PUFF INHALATION DAILY, #1 INHALER 01/09/19 Diltiazem Hcl (Diltiazem) 120 Mg Capsr, 120 MG PO QAM, #30 CAP 01/09/19 Pantoprazole* (Pantoprazole*) 40 Mg Tablet.dr, 40 MG PO AC BREAKFAST, TAB 01/09/19 Mirtazapine* (Mirtazapine*) 15 Mg Tablet, 15 MG PO HS, TAB 01/09/19 Metoprolol Tartrate* (Lopressor*) 50 Mg Tab, 50 MG PO BID, #60 TAB 01/09/19 Docusate Sodium* (Colace*) 100 Mg Capsule, 100 MG PO QHS, #30 CAP 01/09/19 Diazepam* (Diazepam*) 2 Mg Tablet, 2 MG PO QHS, TAB 01/09/19 Atorvastatin Calcium* (Atorvastatin Calcium*) 20 Mg Tablet, 20 MG PO QHS, #30 TAB 01/09/19 Acetaminophen* (Acetaminophen*) 325 Mg Tablet, 650 MG PO NEEDED PRN for PAIN AND OR ELEVATED TEMP, #30 TAB 01/09/19 Apixaban* (Eliquis*) 5 Mg Tablet, 5 MG PO BID, TAB 01/09/19 Primary Care Provider MD ALTAGRACIA Newton,BREEZY Andrade MD Feb 14, 2019 20:09
[2019-02-14] MEDS: ATORVASTATIN 20 MG TAB PO SCH (21:15)
[2019-02-14] MEDS: MIRTAZAPINE 15 MG TAB PO SCH (21:16)
[2019-02-14] MEDS: DOCUSATE SODIUM 100 MG CAP PO SCH (21:16)
[2019-02-15] MEDS: ACETYLCYSTEINE 20% 4 ML VIAL NEB SCH ×4 (02:05→21:52)
[2019-02-15] MEDS: ALBUTEROL/IPRATROPIUM (NEB) 3 ML AMP HHN SCH ×4 (02:05→21:42)
[2019-02-15 02:10] VITALS: BP 138/62; PULSE 90; RESP 20
[2019-02-15] MEDS: PANTOPRAZOLE (EC) 40 MG TAB PO SCH (07:57)
[2019-02-15 08:25] VITALS: BP 132/91; PULSE 92; RESP 20
[2019-02-15] MEDS: BUPROPION (XL) 150 MG TAB PO SCH (08:57)
[2019-02-15] MEDS: DOXYCYCLINE 100 MG TAB PO SCH ×2 (08:57→20:24)
[2019-02-15] MEDS: APIXABAN 5 MG TABLET PO SCH ×2 (08:58→20:21)
[2019-02-15] MEDS: FLUTICASONE/VILANTEROL 200-25 INH DEVICE INH SCH (08:58)
[2019-02-15] MEDS: GUAIFENESIN LA 600 MG TABSR PO SCH ×2 (08:58→20:24)
[2019-02-15] MEDS: METOPROLOL 25 MG TAB PO SCH ×2 (09:02→20:23)
[2019-02-15] MEDS: BALSAM PERU/CASTOR OIL 60 GM TUBE TOP SCH ×2 (13:23→20:24)
--- NOTE | 2019-02-15 15:13 | PN ---
DATE: 02/15/2019 SUBJECTIVE: The patient without complaint. OBJECTIVE: VITAL SIGNS: T-max 99, now 98.3, pulse 92 and regular, respirations 20, blood pressure 132/91, oxyge n saturation is 100% on 3 liter nasal cannula, cut down to as low as 85 this morning just shortly bef ore the 100%. GENERAL: Well-developed male in no acute distress, lying in bed. CHEST: Increased expiratory phase but otherwise clear. HEART: Regular rate and rhythm. ABDOMEN: Soft, nontender. Ostomy right lower quadrant with normal stool in the ostomy. Left lower quadrant empty at this time of urine. Normoactive bowel sounds, nontender. EXTREMITIES: No cyanosis, clubbing or edema. NEUROLOGIC: Patient is alert and oriented x2, otherwise nonfocal. LABORATORY DATA: None available at this time. ASSESSMENT AND PLAN: 1. Lethargy, improved as the patient goes through phases through the day, likely a combination of de mentia medications and overall weakness. Will continue to monitor. 2. Pyuria/chronic prostatitis. The patient will remain on doxycycline for a total of 1 month. 3. Coronary artery disease/paroxysmal afib/hypertension, stable with meds. 4. Hypomagnesemia improved but will recheck just to make sure the patient's levels are replaced prio r to discharge. 5. Acute on chronic renal insufficiency, worse on 02/13/2019, likely due to prerenal azotemia. Will recheck to see if patient needs hydration. 6. Discharge planning awaiting a decision from [facility] to see if a bed is available. The patien t too weak for home unless has 24-hour care as patient is full assist and needs more extensive physic al and occupational therapy. Dictated By: TAQUERIA BANKS MD SR/NTS Conf#: [id number] DID#: [id number] CC: BREEZY FRIAS MD;*End*
[2019-02-15 15:29] VITALS: BP 131/63; PULSE 92; RESP 20
[2019-02-15 20:00] VITALS: BP 130/76; PULSE 67; RESP 20
[2019-02-15] MEDS: ATORVASTATIN 20 MG TAB PO SCH (20:22)
[2019-02-15] MEDS: MIRTAZAPINE 15 MG TAB PO SCH (20:23)
[2019-02-15] MEDS: DOCUSATE SODIUM 100 MG CAP PO SCH (20:23)
[2019-02-16] MEDS ORDERED: HALOPERIDOL 5 MG INJ IM ONE (00:30)
[2019-02-16 01:37] VITALS: BP 159/77; PULSE 94; RESP 20
[2019-02-16] MEDS: ACETYLCYSTEINE 20% 4 ML VIAL NEB SCH ×4 (02:00→20:25)
[2019-02-16] MEDS: ALBUTEROL/IPRATROPIUM (NEB) 3 ML AMP HHN SCH ×5 (02:53→20:25)
[2019-02-16 08:25] VITALS: BP 152/76; PULSE 83; RESP 18
[2019-02-16] MEDS: DOXYCYCLINE 100 MG TAB PO SCH ×2 (08:47→20:16)
[2019-02-16] MEDS: PANTOPRAZOLE (EC) 40 MG TAB PO SCH (08:47)
[2019-02-16] MEDS: GUAIFENESIN LA 600 MG TABSR PO SCH ×2 (08:48→20:16)
[2019-02-16] MEDS: METOPROLOL 25 MG TAB PO SCH ×2 (08:48→20:17)
[2019-02-16] MEDS: FLUTICASONE/VILANTEROL 200-25 INH DEVICE INH SCH (09:00)
[2019-02-16] MEDS ORDERED: SOD CHLORIDE 0.9% 1,000 ML IV SCH (11:30)
[2019-02-16] MEDS ORDERED: MAGNESIUM SULFATE 3 GM in DEXTROSE 5% 100 ML IVPB ONE (11:30)
[2019-02-16] MEDS: APIXABAN 5 MG TABLET PO SCH ×2 (11:57→20:16)
[2019-02-16] MEDS: BUPROPION (XL) 150 MG TAB PO SCH (11:58)
[2019-02-16] MEDS: BALSAM PERU/CASTOR OIL 60 GM TUBE TOP SCH ×2 (12:00→20:17)
--- NOTE | 2019-02-16 13:29 | PN ---
DATE: 02/16/2019 SUBJECTIVE: The patient without complaint. OBJECTIVE: VITAL SIGNS: Temperature 98.3, pulse 87, respirations 20, blood pressure 152/76, oxygen saturation 9 3% on 3 liter nasal cannula oxygen. GENERAL: Well-developed male in no acute distress, sitting up in bed. LUNGS: Scant left greater than right end expiratory wheeze, no rhonchi. HEART: Regular rate and rhythm. ABDOMEN: Soft, nontender. EXTREMITIES: No cyanosis, clubbing or edema. NEUROLOGIC: Patient is alert and oriented x2, otherwise nonfocal. LABORATORY DATA: White blood cell count 16.3, hemoglobin 11.4, hematocrit 38.0, platelets 171, BUN o f 54, creatinine 1.48, potassium 5.7, sodium 143, chloride 110, BUN of 54, creatinine 1.48, glucose 9 3, calcium 11.2, magnesium 1.1. ASSESSMENT AND PLAN 1. Leukocytosis, unclear etiology. The patient afebrile, but does have a scant wheeze. The patient may have a component of hemoconcentration as his hematocrit has increased over the last couple of da ys and he is clinically dehydrated as well as a BUN and creatinine are elevated. We will do a chest x-ray and repeat CBC in the morning and monitor for other symptoms. 2. Chronic prostatitis/pyuria stable. Continue on doxycycline. 3. Chronic obstructive pulmonary disease, stable. The patient was wheezing today. Will check a mark st x-ray. Continue with p.r.n. breathing treatments. 4. Hypomagnesemia. The patient was significantly low magnesium. We will give 3 grams of IV magnesi um replacement. 5. Hypopotassemia likely in part related to hemoconcentration. We will give intravenous fluids and recheck potassium and kidney function later today. 6. Acute on chronic renal insufficiency, worse. Will give some normal saline at 75 mL an hour x1 li ter only and recheck BUN and creatinine. Dictated By: TAQUEIRA BANKS MD SR/NTS Conf#: [id number] DID#: [id number] CC: BREEZY FRIAS MD;*EndCC*
[2019-02-16 14:07] VITALS: BP 114/70; PULSE 81; RESP 18
[2019-02-16 19:38] VITALS: BP 114/76; PULSE 60; RESP 18
[2019-02-16] MEDS: DOCUSATE SODIUM 100 MG CAP PO SCH (20:16)
[2019-02-16] MEDS: MIRTAZAPINE 15 MG TAB PO SCH (20:17)
[2019-02-16] MEDS: ATORVASTATIN 20 MG TAB PO SCH (20:17)
[2019-02-17 01:40] VITALS: BP 138/70; PULSE 80; RESP 20
[2019-02-17] MEDS: ALBUTEROL/IPRATROPIUM (NEB) 3 ML AMP HHN SCH ×4 (02:35→20:43)
[2019-02-17] MEDS: ACETYLCYSTEINE 20% 4 ML VIAL NEB SCH ×4 (02:35→20:00)
--- NOTE | 2019-02-17 08:10 | CONS ---
Assessment/Plan Assessment/Plan Hospital Course (Demo Recall) 1) lethargy this seems to wax and wane pt's caregiver that last time he was in the hospital he got more lethargic from the meds he was given I doubt infection is causing his lethargy at this time 2) pyuria initial urine cx grew 50k c.glabrata and repeat shows <10k of c.alb I doubt either one is the cause of his pyuria agree to stopping of cefepime since he has neg cx for bacteria x2 I doubt he has an active UTI he may have some prostatitis and a trial of doxycycline to treat atypicals might be of benefit I will start doxycycline to treat possible prostatitis and if his pyuria does not resolve then I would recommend urology consult 02/13 - pt tolerating his doxycycline so far, continue for one month and re-check u/a, urine cx 1 week after he is done with his antibiotics 02/17 - due to elevated WBC will re-order u/a and urine cx 3) COPD breathing is currently stable 02/17- CXR does not show raimundo pneumonia, his O2 sats have been stable will order procalcitonin, doubt he has pneumonia 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 5) hx of DVT 6) CAD 7) HTN 8) hx of CVA 9) leukocytosis 02/17 - unexplained, no obvious source of infection CXR shows atelectasis/small pleural effusions and no change in O2 sats will order procalcitonin, u/a and urine cx Consultation Date/Type/Reason Admit Date/Time Feb 05, 2019 at 20:14 Initial Consult Date 02/12/19 Type of Consult ID Date/Time of Note DATE: 02/17/19 TIME: 08:04 24 HR Interval Summary Free Text/Dictation pt was agitated over the weekend and pulling out lines he had some wheezing which has improved no F nurse reports minimally coughing no diarrhea from colostomy or ileostomy according to the nurse Exam/Review of Systems Exam Vitals Vital Signs Date Temp Pulse Resp B/P (MAP) Pulse Ox O2 O2 Flow FiO2 Time Delivery Rate 02/17/19 3.0 07:59 02/17/19 20 21 07:59 02/17/19 70 96 Nasal 02:40 Cannula 02/17/19 98.1 138/70 01:40 (92) Intake and Output 02/16/19 02/16/19 02/17/19 1515:00 23:00 07:00 IntakeIntake Total 181 ml 700 ml OutputOutput Total 600 ml BalanceBalance -419 ml 700 ml Constitutional: non-verbal Respiratory: other (bibasilar rales) Cardiovascular: regular rate and rhythm Gastrointestinal: soft, non-tender Extremities: other (prior IV sites are ok) Results Result Diagram: 02/17/19 0507 02/17/19 0507 Results 24hrs Laboratory Tests Test 02/16/19 17:06 02/17/19 05:07 Sodium Level 144 145 H Potassium Level 4.6 5.7 H Chloride Level 118 H 114 H Carbon Dioxide Level 19 L 20 L Anion Gap 7 11 Blood Urea Nitrogen 45 H 58 H Creatinine 1.21 1.54 H Est Glomerular Filtrat Rate mL/min Glucose Level 88 93 Calcium Level 9.1 11.1 #H White Blood Count 19.3 H Red Blood Count 3.86 L Hemoglobin 10.7 L Hematocrit 34.9 L Mean Corpuscular Volume 90.4 Mean Corpuscular Hemoglobin 27.7 L Mean Corpuscular Hemoglobin Concent 30.7 L Red Cell Distribution Width 16.2 H Platelet Count 193 Mean Platelet Volume 11.9 H Immature Granulocytes % 0.500 H Neutrophils % 76.5 Lymphocytes % 10.7 L Monocytes % 9.7 Eosinophils % 2.1 Basophils % 0.5 Nucleated Red Blood Cells % 0.0 Immature Granulocytes # 0.090 H Neutrophils # 14.7 H Lymphocytes # 2.1 Monocytes # 1.9 H Eosinophils # 0.4 Basophils # 0.1 Nucleated Red Blood Cells # 0.0 Magnesium Level 1.9 Total Bilirubin 0.1 L Direct Bilirubin 0.00 Indirect Bilirubin 0.1 Aspartate Amino Transf (AST/SGOT) 23 Alanine Aminotransferase (ALT/SGPT) 16 Alkaline Phosphatase 87 Total Protein 7.4 Albumin 3.5 Globulin 3.90 H Albumin/Globulin Ratio 0.89 Medications Medication Current Medications Acetaminophen (Tylenol Tab) 650 mg Q4 PRN PO MILD PAIN(1-3)OR ELEVATED TEMP Last administered on 02/12/19at 01:20; Admin Dose 650 MG; Start 02/06/19 at 00:00 Acetylcysteine (Mucomyst) 2 ml Q6H RESP THERAPY NEB Last administered on 02/17/19at 07:54; Admin Dose 2 ML; Start 02/06/19 at 02:00 Apixaban (Eliquis) 2.5 mg BID PO Last administered on 02/16/19 20:16; Admin Dose 2.5 MG; Start 02/06/19 at 09:00 Atorvastatin Calcium (Lipitor) 20 mg QHS PO Last administered on 02/16/19 20:17; Admin Dose 20 MG; Start 02/06/19 at 21:00 Bupropion HCl (Wellbutrin Xl) 300 mg DAILY PO Last administered on 02/16/19 11:58; Admin Dose 300 MG; Start 02/06/19 at 09:00 Docusate Sodium (Colace) 100 mg QHS PO Last administered on 02/16/19 20:16; Admin Dose 100 MG; Start 02/06/19 at 21:00 Fluticasone/ Vilanterol (Breo Ellipta 200-25 Mcg Inh) 1 inh DAILY INH Last administered on 02/15/19 08:58; Admin Dose 1 INH; Start 02/06/19 at 09:00 Guaifenesin (Mucinex) 600 mg BID PO Last administered on 02/16/19 20:16; Admin Dose 600 MG; Start 02/06/19 at 09:00 Mirtazapine (Remeron) 15 mg HS PO Last administered on 02/16/19 20:17; Admin Dose 15 MG; Start 02/06/19 at 21:00 Pantoprazole (Protonix Tab) 40 mg AC BREAKFAST PO Last administered on 02/16/19at 08:47; Admin Dose 40 MG; Start 02/06/19 at 07:20 IV Flush (NS 3 ml) 3 ml PER PROTOCOL IV Last administered on 02/06/19at 00:04; Admin Dose 3 ML; Start 02/06/19 at 00:00 Ondansetron HCl (Zofran Inj) 4 mg Q6H PRN IV NAUSEA/VOMITING; Start 02/06/19 at 00:00 Magnesium Hydroxide (Milk Of Mag) 30 ml DAILY PRN PO .CONSTIPATION; Start 02/06/19 at 00:00 Sodium Biphosphate/ Sodium Phosphate (Fleet Enema) 133 ml DAILY PRN [place] .CONSTIPATION; Start 02/06/19 at 00:00 Miscellaneous Information (Pending [facility] Order For Wound Care) This patient sawyer... PRN PRN XX WOUND CARE; Start 02/06/19 at 08:00 Albuterol/ Ipratropium (Duoneb) 3 ml Q6H RESP THERAPY HHN Last administered on 02/17/19at 07:54; Admin Dose 3 ML; Start 02/06/19 at 08:30 Metoprolol Tartrate (Lopressor) 25 mg BID PO Last administered on 02/16/19at 20:17; Admin Dose 25 MG; Start 02/09/19 at 21:00 Doxycycline Hyclate (Vibramycin) 100 mg BID PO Last administered on 02/16/19at 20:16; Admin Dose 100 MG; Start 02/12/19 at 21:00 MIGUELITO VASQUEZ MD Feb 17, 2019 08:10
[2019-02-17 08:25] VITALS: BP 120/86; PULSE 76; RESP 18
[2019-02-17] MEDS: FLUTICASONE/VILANTEROL 200-25 INH DEVICE INH SCH (08:27)
[2019-02-17] MEDS: METOPROLOL 25 MG TAB PO SCH ×2 (08:28→21:32)
[2019-02-17] MEDS: BUPROPION (XL) 150 MG TAB PO SCH (08:29)
[2019-02-17] MEDS: DOXYCYCLINE 100 MG TAB PO SCH ×2 (08:29→21:31)
[2019-02-17] MEDS: APIXABAN 5 MG TABLET PO SCH ×2 (08:29→21:31)
[2019-02-17] MEDS: GUAIFENESIN LA 600 MG TABSR PO SCH ×2 (08:29→21:31)
[2019-02-17] MEDS: PANTOPRAZOLE (EC) 40 MG TAB PO SCH (08:30)
[2019-02-17] MEDS: BALSAM PERU/CASTOR OIL 60 GM TUBE TOP SCH ×2 (08:31→21:32)
[2019-02-17 15:05] VITALS: BP 136/63; PULSE 85
--- NOTE | 2019-02-17 18:17 | PN ---
Date/Time of Note Date/Time of Note DATE: 02/17/19 TIME: 18:14 Assessment/Plan VTE Prophylaxis Risk score (from [facility])>0 risk: 6 SCD applied (from [facility]): Yes Pharmacological prophylaxis: apixaban Lines/Catheters IV Catheter Type (from [facility]): Peripheral IV Urinary Cath still in place: No Assessment/Plan Hospital Course Patient was admitted with altered mental status and acute dehydration and leukouria. His mental status and dehydration improved with IV fluids and cefepime which were stopped when urine culture grew vijay glabata but no bacteria. Repeat cath UA still shows marked leukouria but culture grew vijay albicans. ID consult recommended treatment for prostatitis with 1 month of doxycycline. Patient was able to feed himself but needs full assist in transfer and ambu lation even with PT treatment for a week. Was supposed to go to [facility] for continued therapy 2 days ago but patient started having leukocytosis and increased confusion. Problems: (1) Leukocytosis Status: Acute Comment: Chest xray shows bibasilar atelectasis and possible effusion. Galo chest CT since patient has history of aspiration pneumonitis visible only on CT scan. He also has persistent pyuria and history of spontaneous pneumoperitoneum on last admission. Will galo abd/pelvic CT for intraabdominal pathology. (2) Encephalopathy Status: Acute Comment: treat hallucination and agitations with haldol while working up source of encephalopathy. (3) Pyuria Status: Acute Comment: Patient on doxy for possible prostatitis. 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 (7) Anxiety and depression Status: Chronic Result Diagram: 02/17/19 0507 02/17/19 0507 Results 24hrs Laboratory Tests Test 02/17/19 05:07 02/17/19 09:30 White Blood Count 19.3 H Red Blood Count 3.86 L Hemoglobin 10.7 L Hematocrit 34.9 L Mean Corpuscular Volume 90.4 Mean Corpuscular Hemoglobin 27.7 L Mean Corpuscular Hemoglobin Concent 30.7 L Red Cell Distribution Width 16.2 H Platelet Count 193 Mean Platelet Volume 11.9 H Immature Granulocytes % 0.500 H Neutrophils % 76.5 Lymphocytes % 10.7 L Monocytes % 9.7 Eosinophils % 2.1 Basophils % 0.5 Nucleated Red Blood Cells % 0.0 Immature Granulocytes # 0.090 H Neutrophils # 14.7 H Lymphocytes # 2.1 Monocytes # 1.9 H Eosinophils # 0.4 Basophils # 0.1 Nucleated Red Blood Cells # 0.0 Sodium Level 145 H Potassium Level 5.7 H Chloride Level 114 H Carbon Dioxide Level 20 L Anion Gap 11 Blood Urea Nitrogen 58 H Creatinine 1.54 H Est Glomerular Filtrat Rate mL/min Glucose Level 93 Calcium Level 11.1 #H Magnesium Level 1.9 Total Bilirubin 0.1 L Direct Bilirubin 0.00 Indirect Bilirubin 0.1 Aspartate Amino Transf (AST/SGOT) 23 Alanine Aminotransferase (ALT/SGPT) 16 Alkaline Phosphatase 87 Total Protein 7.4 Albumin 3.5 Globulin 3.90 H Albumin/Globulin Ratio 0.89 Urine Color YELLOW Urine Clarity CLOUDY A Urine pH 5.0 Urine Specific [place] 1.017 Urine Ketones NEGATIVE Urine Nitrite NEGATIVE Urine Bilirubin NEGATIVE Urine Urobilinogen NEGATIVE Urine Leukocyte Esterase 3+ H Urine Microscopic RBC 9 H Urine Microscopic WBC > 182 H Urine Squamous Epithelial Cells FEW Urine Bacteria FEW A Urine Hemoglobin NEGATIVE Urine Glucose NEGATIVE Urine Total Protein 1+ H Subjective 24 Hr Interval Summary Free Text/Dictation No complaints. Exam/Review of Systems Exam Vitals Vital Signs Date Temp Pulse Resp B/P (MAP) Pulse Ox O2 O2 Flow FiO2 Time Delivery Rate 02/17/19 98.1 85 136/63 93 Nasal 15:05 (87) Cannula 02/17/19 20 21 13:59 02/17/19 3.0 08:00 Intake and Output 02/16/19 02/16/19 02/17/19 1515:00 23:00 07:00 IntakeIntake Total 181 ml 700 ml OutputOutput Total 600 ml BalanceBalance -419 ml 700 ml Exam Patient awake and oriented to person but hallucinatin, grabbing things in the air. Head: normocephalic ENMT: nl external ears & nose Respiratory: congested cough, diminished breath sounds Cardiovascular: regular rate and rhythm Gastrointestinal: other Musculoskeletal: nl extremities to inspection Results Results 24hrs Laboratory Tests Test 02/17/19 05:07 02/17/19 09:30 White Blood Count 19.3 H Red Blood Count 3.86 L Hemoglobin 10.7 L Hematocrit 34.9 L Mean Corpuscular Volume 90.4 Mean Corpuscular Hemoglobin 27.7 L Mean Corpuscular Hemoglobin Concent 30.7 L Red Cell Distribution Width 16.2 H Platelet Count 193 Mean Platelet Volume 11.9 H Immature Granulocytes % 0.500 H Neutrophils % 76.5 Lymphocytes % 10.7 L Monocytes % 9.7 Eosinophils % 2.1 Basophils % 0.5 Nucleated Red Blood Cells % 0.0 Immature Granulocytes # 0.090 H Neutrophils # 14.7 H Lymphocytes # 2.1 Monocytes # 1.9 H Eosinophils # 0.4 Basophils # 0.1 Nucleated Red Blood Cells # 0.0 Sodium Level 145 H Potassium Level 5.7 H Chloride Level 114 H Carbon Dioxide Level 20 L Anion Gap 11 Blood Urea Nitrogen 58 H Creatinine 1.54 H Est Glomerular Filtrat Rate mL/min Glucose Level 93 Calcium Level 11.1 #H Magnesium Level 1.9 Total Bilirubin 0.1 L Direct Bilirubin 0.00 Indirect Bilirubin 0.1 Aspartate Amino Transf (AST/SGOT) 23 Alanine Aminotransferase (ALT/SGPT) 16 Alkaline Phosphatase 87 Total Protein 7.4 Albumin 3.5 Globulin 3.90 H Albumin/Globulin Ratio 0.89 Urine Color YELLOW Urine Clarity CLOUDY A Urine pH 5.0 Urine Specific [place] 1.017 Urine Ketones NEGATIVE Urine Nitrite NEGATIVE Urine Bilirubin NEGATIVE Urine Urobilinogen NEGATIVE Urine Leukocyte Esterase 3+ H Urine Microscopic RBC 9 H Urine Microscopic WBC > 182 H Urine Squamous Epithelial Cells FEW Urine Bacteria FEW A Urine Hemoglobin NEGATIVE Urine Glucose NEGATIVE Urine Total Protein 1+ H Medications Medication Current Medications Acetaminophen (Tylenol Tab) 650 mg Q4 PRN PO MILD PAIN(1-3)OR ELEVATED TEMP Last administered on 02/12/19at 01:20; Admin Dose 650 MG; Start 02/06/19 at 00:00 Acetylcysteine (Mucomyst) 2 ml Q6H RESP THERAPY NEB Last administered on 02/17/19at 13:59; Admin Dose 2 ML; Start 02/06/19 at 02:00 Apixaban (Eliquis) 2.5 mg BID PO Last administered on 02/17/19at 08:29; Admin Dose 2.5 MG; Start 02/06/19 at 09:00 Atorvastatin Calcium (Lipitor) 20 mg QHS PO Last administered on 02/16/19at 20:17; Admin Dose 20 MG; Start 02/06/19 at 21:00 Bupropion HCl (Wellbutrin Xl) 300 mg DAILY PO Last administered on 02/17/19 08:29; Admin Dose 300 MG; Start 02/06/19 at 09:00 Docusate Sodium (Colace) 100 mg QHS PO Last administered on 02/16/19 20:16; Admin Dose 100 MG; Start 02/06/19 at 21:00 Fluticasone/ Vilanterol (Breo Ellipta 200-25 Mcg Inh) 1 inh DAILY INH Last administered on 02/17/19 08:27; Admin Dose 1 INH; Start 02/06/19 at 09:00 Guaifenesin (Mucinex) 600 mg BID PO Last administered on 02/17/19 08:29; Admin Dose 600 MG; Start 02/06/19 at 09:00 Mirtazapine (Remeron) 15 mg HS PO Last administered on 02/16/19 20:17; Admin Dose 15 MG; Start 02/06/19 at 21:00 Pantoprazole (Protonix Tab) 40 mg AC BREAKFAST PO Last administered on 02/17/19 08:30; Admin Dose 40 MG; Start 02/06/19 at 07:20 IV Flush (NS 3 ml) 3 ml PER PROTOCOL IV Last administered on 02/06/19 00:04; Admin Dose 3 ML; Start 02/06/19 at 00:00 Ondansetron HCl (Zofran Inj) 4 mg Q6H PRN IV NAUSEA/VOMITING; Start 02/06/19 at 00:00 Magnesium Hydroxide (Milk Of Mag) 30 ml DAILY PRN PO .CONSTIPATION; Start 02/06/19 at 00:00 Sodium Biphosphate/ Sodium Phosphate (Fleet Enema) 133 ml DAILY PRN [place] .CON STIPATION; Start 02/06/19 at 00:00 Miscellaneous Information (Pending [facility] Order For Wound Care) This patient sawyer... PRN PRN XX WOUND CARE; Start 02/06/19 at 08:00 Albuterol/ Ipratropium (Duoneb) 3 ml Q6H RESP THERAPY HHN Last administered on 02/17/19 13:59; Admin Dose 3 ML; Start 02/06/19 at 08:30 Metoprolol Tartrate (Lopressor) 25 mg BID PO Last administered on 02/17/19 08:28; Admin Dose 25 MG; Start 02/09/19 at 21:00 Doxycycline Hyclate (Vibramycin) 100 mg BID PO Last administered on 02/17/19at 08:29; Admin Dose 100 MG; Start 02/12/19 at 21:00 BREEZY FRIAS MD Feb 17, 2019 18:17
[2019-02-17] MEDS ORDERED: IOHEXOL 14.3 MG(I)/ML (ADULT) BTL PO ONE (19:30)
[2019-02-17 19:43] VITALS: BP 117/58; PULSE 91; RESP 20
[2019-02-17] MEDS: ATORVASTATIN 20 MG TAB PO SCH (21:31)
[2019-02-17] MEDS: MIRTAZAPINE 15 MG TAB PO SCH (21:31)
[2019-02-17] MEDS: DOCUSATE SODIUM 100 MG CAP PO SCH (21:31)
[2019-02-18] MEDS: ALBUTEROL/IPRATROPIUM (NEB) 3 ML AMP HHN SCH ×4 (01:53→20:23)
[2019-02-18 01:54] VITALS: BP 130/60; RESP 20
[2019-02-18] MEDS: ACETYLCYSTEINE 20% 4 ML VIAL NEB SCH ×4 (02:00→20:23)
--- NOTE | 2019-02-18 07:33 | CONS ---
Assessment/Plan Assessment/Plan Hospital Course (Demo Recall) 1) lethargy this seems to wax and wane pt's caregiver that last time he was in the hospital he got more lethargic from the meds he was given I doubt infection is causing his lethargy at this time 02/18 - pt less lethargic this a.m. but has confusion 2) pyuria initial urine cx grew 50k c.glabrata and repeat shows <10k of c.alb I doubt either one is the cause of his pyuria agree to stopping of cefepime since he has neg cx for bacteria x2 I doubt he has an active UTI he may have some prostatitis and a trial of doxycycline to treat atypicals might be of benefit I will start doxycycline to treat possible prostatitis and if his pyuria does not resolve then I would recommend urology consult 02/13 - pt tolerating his doxycycline so far, continue for one month and re-check u/a, urine cx 1 week after he is done with his antibiotics 02/17 - due to elevated WBC will re-order u/a and urine cx 02/18 - pyuria persists urine cx has 5K colonies of likely enterococcus which is not significant continue doxycycline at present consider urology consult I will order urine for AFB cx 3) COPD breathing is currently stable 02/17- CXR does not show raimundo pneumonia, his O2 sats have been stable will order procalcitonin, doubt he has pneumonia 02/18 - breathing is stable and pt appears comfortable procalcitonin is pending WBC is down a bit today CT chest is pending 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 5) hx of DVT 6) CAD 7) HTN 8) hx of CVA 9) leukocytosis 02/17 - unexplained, no obvious source of infection CXR shows atelectasis/small pleural effusions and no change in O2 sats will order procalcitonin, u/a and urine cx 02/18 - urine cx only has 5k colonies of likely enterococcus which is not significant breathing is stable no diarrhea WBC a bit improved no additional antibiotics at this time CT chest/abd/pelv is pending Consultation Date/Type/Reason Admit Date/Time Feb 05, 2019 at 20:14 Initial Consult Date 02/12/19 Type of Consult ID Date/Time of Note DATE: 02/18/19 TIME: 07:24 24 HR Interval Summary Free Text/Dictation pt is more awake this a.m. but confused he states his breathing is pretty good no V, D no pain anyplace Exam/Review of Systems Exam Vitals Vital Signs Date Temp Pulse Resp B/P (MAP) Pulse Ox O2 O2 Flow FiO2 Time Delivery Rate 02/18/19 91 20 94 Nasal 3.0 02:02 Cannula 02/18/19 98.0 130/60 01:54 (83) 02/17/19 21 13:59 Intake and Output 02/17/19 02/17/19 02/18/19 1515:00 23:00 07:00 IntakeIntake Total 780 ml 120 ml 120 ml OutputOutput Total 950 ml 200 ml 200 ml BalanceBalance -170 ml -80 ml -80 ml Constitutional: alert Psych: confusion Eyes: nl sclera ENMT: mucosa pink and moist Respiratory: other (decreased BS at bases) Cardiovascular: regular rate and rhythm Gastrointestinal: soft, non-tender Extremities: other (no edema) Neurological: other (pt has tremors) Results Result Diagram: 02/18/19 0432 02/17/19 0507 Results 24hrs Laboratory Tests Test 02/17/19 09:30 02/18/19 04:32 Urine Color YELLOW Urine Clarity CLOUDY A Urine pH 5.0 Urine Specific [place] 1.017 Urine Ketones NEGATIVE Urine Nitrite NEGATIVE Urine Bilirubin NEGATIVE Urine Urobilinogen NEGATIVE Urine Leukocyte Esterase 3+ H Urine Microscopic RBC 9 H Urine Microscopic WBC > 182 H Urine Squamous Epithelial Cells FEW Urine Bacteria FEW A Urine Hemoglobin NEGATIVE Urine Glucose NEGATIVE Urine Total Protein 1+ H White Blood Count 16.7 H Red Blood Count 4.01 L Hemoglobin 11.1 L Hematocrit 36.1 L Mean Corpuscular Volume 90.0 Mean Corpuscular Hemoglobin 27.7 L Mean Corpuscular Hemoglobin Concent 30.7 L Red Cell Distribution Width 16.2 H Platelet Count 207 Mean Platelet Volume 12.2 H Immature Granulocytes % 0.600 H Neutrophils % 75.2 Lymphocytes % 10.7 L Monocytes % 10.6 Eosinophils % 2.4 Basophils % 0.5 Nucleated Red Blood Cells % 0.0 Immature Granulocytes # 0.100 H Neutrophils # 12.6 H Lymphocytes # 1.8 Monocytes # 1.8 H Eosinophils # 0.4 Basophils # 0.1 Nucleated Red Blood Cells # 0.0 Ammonia 15 Medications Medication Current Medications Acetaminophen (Tylenol Tab) 650 mg Q4 PRN PO MILD PAIN(1-3)OR ELEVATED TEMP Last administered on 02/12/19 01:20; Admin Dose 650 MG; Start 02/06/19 at 00:00 Acetylcysteine (Mucomyst) 2 ml Q6H RESP THERAPY NEB Last administered on 02/17/19 13:59; Admin Dose 2 ML; Start 02/06/19 at 02:00 Apixaban (Eliquis) 2.5 mg BID PO Last administered on 02/17/19 21:31; Admin Dose 2.5 MG; Start 02/06/19 at 09:00 Atorvastatin Calcium (Lipitor) 20 mg QHS PO Last administered on 02/17/19 21:31; Admin Dose 20 MG; Start 02/06/19 at 21:00 Bupropion HCl (Wellbutrin Xl) 300 mg DAILY PO Last administered on 02/17/19 08:29; Admin Dose 300 MG; Start 02/06/19 at 09:00 Docusate Sodium (Colace) 100 mg QHS PO Last administered on 02/17/19 21:31; Admin Dose 100 MG; Start 02/06/19 at 21:00 Fluticasone/ Vilanterol (Breo Ellipta 200-25 Mcg Inh) 1 inh DAILY INH Last administered on 02/17/19 08:27; Admin Dose 1 INH; Start 02/06/19 at 09:00 Guaifenesin (Mucinex) 600 mg BID PO Last administered on 02/17/19 21:31; Admin Dose 600 MG; Start 02/06/19 at 09:00 Mirtazapine (Remeron) 15 mg HS PO Last administered on 02/17/19 21:31; Admin Dose 15 MG; Start 02/06/19 at 21:00 Pantoprazole (Protonix Tab) 40 mg AC BREAKFAST PO Last administered on 02/17/19 08:30; Admin Dose 40 MG; Start 02/06/19 at 07:20 IV Flush (NS 3 ml) 3 ml PER PROTOCOL IV Last administered on 02/06/19 00:04; Admin Dose 3 ML; Start 02/06/19 at 00:00 Ondansetron HCl (Zofran Inj) 4 mg Q6H PRN IV NAUSEA/VOMITING; Start 02/06/19 at 00:00 Magnesium Hydroxide (Milk Of Mag) 30 ml DAILY PRN PO .CONSTIPATION; Start 02/06/19 at 00:00 Sodium Biphosphate/ Sodium Phosphate (Fleet Enema) 133 ml DAILY PRN [place] .CON STIPATION; Start 02/06/19 at 00:00 Misc[facility] This patient sawyer... PRN PRN XX WOUND CARE; Start 02/06/19 at 08:00 Albuterol/ Ipratropium (Duoneb) 3 ml Q6H RESP THERAPY HHN Last administered on 02/18/19at 01:53; Admin Dose 3 ML; Start 02/06/19 at 08:30 Metoprolol Tartrate (Lopressor) 25 mg BID PO Last administered on 02/17/19at 21:32; Admin Dose 25 MG; Start 02/09/19 at 21:00 Doxycycline Hyclate (Vibramycin) 100 mg BID PO Last administered on 02/17/19at 21:31; Admin Dose 100 MG; Start 02/12/19 at 21:00 MIGUELITO VASQUEZ MD Feb 18, 2019 07:33
[2019-02-18 07:36] VITALS: BP 130/89; PULSE 90; RESP 18
[2019-02-18] MEDS: GUAIFENESIN LA 600 MG TABSR PO SCH (09:30)
[2019-02-18] MEDS: PANTOPRAZOLE (EC) 40 MG TAB PO SCH (09:30)
[2019-02-18] MEDS: METOPROLOL 25 MG TAB PO SCH ×2 (09:31→21:19)
[2019-02-18] MEDS: BUPROPION (XL) 150 MG TAB PO SCH (09:31)
[2019-02-18] MEDS: DOXYCYCLINE 100 MG TAB PO SCH ×2 (09:31→21:18)
[2019-02-18] MEDS: FLUTICASONE/VILANTEROL 200-25 INH DEVICE INH SCH (09:44)
[2019-02-18] MEDS: BALSAM PERU/CASTOR OIL 60 GM TUBE TOP SCH ×2 (09:44→22:06)
[2019-02-18] MEDS: APIXABAN 5 MG TABLET PO SCH ×2 (09:44→21:19)
[2019-02-18 14:02] VITALS: BP 130/78; PULSE 88; RESP 18
--- NOTE | 2019-02-18 17:16 | PN ---
Date/Time of Note Date/Time of Note DATE: 02/18/19 TIME: 17:05 Assessment/Plan VTE Prophylaxis [place] [facility] risk: 10 SCD applied (from [facility] Yes Pharmacological prophylaxis: apixaban Lines/Catheters IV Catheter Type (from [facility]): Peripheral IV Urinary Cath still in place: No Assessment/Plan Hospital Course Patient was admitted with altered mental status and acute dehydration and leukouria. His mental status and dehydration improved with IV fluids and cefepime which were stopped when urine culture grew vijay glabata but no bacteria. Repeat cath UA still shows marked leukouria but culture grew vijay albicans. ID consult recommended treatment for prostatitis with 1 month of doxycycline. Patient was able to feed himself but needs full assist in transfer and amb ulation even with PT treatment for a week. [facility] but patient developed leukocytosis and increased confusion several days ago . Work up shows persistent pyuria with thickened bladder wall and complex mass of right kidney. Problems: (1) Encephalopathy Status: Acute Comment: This is a marked deterioation in mental status from his baseline. May be due to ongoing acute process, use low dose haldol as needed since ativan and diazepam sedates him for a long time. (2) Chronic cystitis Status: Chronic Comment: Thickened bladder wall was seen last month on previous admission. Will request Urology consult for this problem and pyuria. (3) Right kidney mass Status: Chronic Comment: Also seen on last abd CT scan thought to be due to complex cyst but now associated with persistent pyuria. May need further work up . (4) Leukocytosis Status: Acute Comment: Mild improved today on no new antibiotics besides the oral doxycycline. Continue to follow cbc. (5) Dehydration Status: Acute Comment: Patient unable to keep up with fluids when he becomes confused . Resume IV fluids for now. Result Diagram: 02/18/19 0432 02/18/19 0637 Results 24hrs Laboratory Tests Test 02/18/19 04:32 02/18/19 06:37 White Blood Count 16.7 H Red Blood Count 4.01 L Hemoglobin 11.1 L Hematocrit 36.1 L Mean Corpuscular Volume 90.0 Mean Corpuscular Hemoglobin 27.7 L Mean Corpuscular Hemoglobin Concent 30.7 L Red Cell Distribution Width 16.2 H Platelet Count 207 Mean Platelet Volume 12.2 H Immature Granulocytes % 0.600 H Neutrophils % 75.2 Lymphocytes % 10.7 L Monocytes % 10.6 Eosinophils % 2.4 Basophils % 0.5 Nucleated Red Blood Cells % 0.0 Immature Granulocytes # 0.100 H Neutrophils # 12.6 H Lymphocytes # 1.8 Monocytes # 1.8 H Eosinophils # 0.4 Basophils # 0.1 Nucleated Red Blood Cells # 0.0 Erythrocyte Sedimentation Rate 130.0 H Ammonia 15 Sodium Level 150 H Potassium Level 5.1 Chloride Level 117 H Carbon Dioxide Level 21 Anion Gap 12 Blood Urea Nitrogen 67 H Creatinine 1.85 H Est Glomerular Filtrat Rate mL/min Glucose Level 115 Calcium Level 11.4 H Total Bilirubin 0.1 L Direct Bilirubin 0.00 Indirect Bilirubin 0.1 Aspartate Amino Transf (AST/SGOT) 16 Alanine Aminotransferase (ALT/SGPT) < 6 L Alkaline Phosphatase 99 Total Protein 8.4 H Albumin 3.9 Globulin 4.50 H Albumin/Globulin Ratio 0.86 Subjective 24 Hr Interval Summary Free Text/Dictation No complaints. Exam/Review of Systems Exam Vitals Vital Signs Date Temp Pulse Resp B/P (MAP) Pulse Ox O2 O2 Flow FiO2 Time Delivery Rate 02/18/19 3.0 14:28 02/18/19 74 16 97 Nasal 14:10 Cannula 02/18/19 97.8 130/78 14:02 (95) 02/17/19 21 13:59 Intake and Output 02/17/19 02/17/19 02/18/19 1515:00 23:00 07:00 IntakeIntake Total 780 ml 120 ml 120 ml OutputOutput Total 950 ml 200 ml 200 ml BalanceBalance -170 ml -80 ml -80 ml Exam Confused and lethargic. Head: normocephalic, atraumatic ENMT: nl external ears & nose Respiratory: clear to auscultation Cardiovascular: regular rate and rhythm Gastrointestinal: soft, non-tender, other (bilateral abdominal ostomies ) Musculoskeletal: nl extremities to inspection Results Results 24hrs Laboratory Tests Test 02/18/19 04:32 02/18/19 06:37 White Blood Count 16.7 H Red Blood Count 4.01 L Hemoglobin 11.1 L Hematocrit 36.1 L Mean Corpuscular Volume 90.0 Mean Corpuscular Hemoglobin 27.7 L Mean Corpuscular Hemoglobin Concent 30.7 L Red Cell Distribution Width 16.2 H Platelet Count 207 Mean Platelet Volume 12.2 H Immature Granulocytes % 0.600 H Neutrophils % 75.2 Lymphocytes % 10.7 L Monocytes % 10.6 Eosinophils % 2.4 Basophils % 0.5 Nucleated Red Blood Cells % 0.0 Immature Granulocytes # 0.100 H Neutrophils # 12.6 H Lymphocytes # 1.8 Monocytes # 1.8 H Eosinophils # 0.4 Basophils # 0.1 Nucleated Red Blood Cells # 0.0 Erythrocyte Sedimentation Rate 130.0 H Ammonia 15 Sodium Level 150 H Potassium Level 5.1 Chloride Level 117 H Carbon Dioxide Level 21 Anion Gap 12 Blood Urea Nitrogen 67 H Creatinine 1.85 H Est Glomerular Filtrat Rate mL/min Glucose Level 115 Calcium Level 11.4 H Total Bilirubin 0.1 L Direct Bilirubin 0.00 Indirect Bilirubin 0.1 Aspartate Amino Transf (AST/SGOT) 16 Alanine Aminotransferase (ALT/SGPT) < 6 L Alkaline Phosphatase 99 Total Protein 8.4 H Albumin 3.9 Globulin 4.50 H Albumin/Globulin Ratio 0.86 Medications Medication Current Medications Acetaminophen (Tylenol Tab) 650 mg Q4 PRN PO MILD PAIN(1-3)OR ELEVATED TEMP Last administered on 02/12/19 01:20; Admin Dose 650 MG; Start 02/06/19 at 00:00 Acetylcysteine (Mucomyst) 2 ml Q6H RESP THERAPY NEB Last administered on 02/18/19 14:10; Admin Dose 2 ML; Start 02/06/19 at 02:00 Apixaban (Eliquis) 2.5 mg BID PO Last administered on 02/18/19 09:44; Admin Dose 2.5 MG; Start 02/06/19 at 09:00 Atorvastatin Calcium (Lipitor) 20 mg QHS PO Last administered on 02/17/19 21:31; Admin Dose 20 MG; Start 02/06/19 at 21:00 Bupropion HCl (Wellbutrin Xl) 300 mg DAILY PO Last administered on 02/18/19 09:31; Admin Dose 300 MG; Start 02/06/19 at 09:00 Docusate Sodium (Colace) 100 mg QHS PO Last administered on 02/17/19 21:31; Admin Dose 100 MG; Start 02/06/19 at 21:00 Fluticasone/ Vilanterol (Breo Ellipta 200-25 Mcg Inh) 1 inh DAILY INH Last administered on 02/18/19 09:44; Admin Dose 1 INH; Start 02/06/19 at 09:00 Guaifenesin (Mucinex) 600 mg BID PO Last administered on 02/18/19 09:30; Admin Dose 600 MG; Start 02/06/19 at 09:00 Mirtazapine (Remeron) 15 mg HS PO Last administered on 02/17/19 21:31; Admin Dose 15 MG; Start 02/06/19 at 21:00 Pantoprazole (Protonix Tab) 40 mg AC BREAKFAST PO Last administered on 02/18/19 09:30; Admin Dose 40 MG; Start 02/06/19 at 07:20 IV Flush (NS 3 ml) 3 ml PER PROTOCOL IV Last administered on 02/06/19 00:04; Admin Dose 3 ML; Start 02/06/19 at 00:00 Ondansetron HCl (Zofran Inj) 4 mg Q6H PRN IV NAUSEA/VOMITING; Start 02/06/19 at 00:00 Magnesium Hydroxide (Milk Of Mag) 30 ml DAILY PRN PO .CONSTIPATION; Start 02/06/19 at 00:00 Sodium Biphosphate/ Sodium Phosphate (Fleet Enema) [address] .CONSTIPATION; Start 02/06/19 at 00:00 Miscellaneous Information (Pending [facility] Order For Wound Care) This patient sawyer... PRN PRN XX WOUND CARE; Start 02/06/19 at 08:00 Albuterol/ Ipratropium (Duoneb) 3 ml Q6H RESP THERAPY HHN Last administered on 02/18/19 14:10; Admin Dose 3 ML; Start 02/06/19 at 08:30 Metoprolol Tartrate (Lopressor) 25 mg BID PO Last administered on 02/18/19 09:31; Admin Dose 25 MG; Start 02/09/19 at 21:00 Doxycycline Hyclate (Vibramycin) 100 mg BID PO Last administered on 02/18/19 09:31; Admin Dose 100 MG; Start 02/12/19 at 21:00 BREEZY FRIAS MD Feb 18, 2019 17:16
[2019-02-18] MEDS ORDERED: GUAIFENESIN 20 MG/ML 5ML CUP PO PRN (18:00)
[2019-02-18] MEDS: SOD CHLORIDE 0.45% 1,000 ML IV SCH (18:28)
--- NOTE | 2019-02-18 18:38 | CONS ---
Assessment/Plan Assessment/Plan Hospital Course (Demo Recall) 83-year-old male was admitted to the hospital because of progressive lethargy. He was unable to wake up to take his medications or eat. Work up in the emergency room shows elevated WBC, BUN/creatinine and abnormal urine suggestive of dehydration and urosepsis. The patient was treated was on the biotics yet he continued to have pyuria and is urine culture did show once Enriqueta glabrata and another time Enriqueta albicans with mixed gram-positive organisms On the physical examination: He does have rash over the scrotum and the penis. He does have phimosis and when the nurses are doing the in and out cath they are not able to see the meatus and the urine is easily contaminated from the drainage underneath the foreskin. As I was examining him he did urinate. I therefore went ahead and did a straight cath on him after retracting the foreskin and cleaning the glans penis and that gives me an idea about his postvoid residual. He had about 10 mL of purulent urine that drained out of his bladder. And most likely is pyuria is persisting because he is always keeping some infected urine inside his bladder. I did send that urine for urine analysis and culture. Based on the prior urine cultures he did have Enriqueta glabrata and Enriqueta albicans. The gram-positive cocci are most likely contaminant from the area of the foreskin. Therefore I went ahead and inserted an 18 Tajik three-way Lazaro catheter and started him on amphotericin bladder irrigation. That basically would not allow to flush all the pus out of the bladder. Once the bladder is cleared from all this purulent material then we could discontinue the Lazaro catheter and repeat his urine analysis and culture. He may as well benefit from oral or intravenous antifungal. I will discuss that with Dr. Taylor Consultation Date/Type/Reason Admit Date/Time Feb 05, 2019 at 20:14 Date of Consultation: Feb 18, 2019 Type of Consult Urology Reason for Consultation Persistent pyuria Requesting Provider: BREEZY FRIAS MD Date/Time of Note DATE: 02/18/19 TIME: 18:20 Hx of Present Illness 83-year-old male was admitted to the hospital because of progressive lethargy. He was unable to wake up to take his medications or eat. Work up in the emergency room shows elevated WBC, BUN/creatinine and abnormal urine suggestive of dehydration and urosepsis. The patient was treated was on the biotics yet he continued to have pyuria and is urine culture did show once Enriqueta glabrata and another time Enriqueta albicans with mixed gram-positive organisms. Constitutional: no complaints Eyes: no complaints ENT: no complaints Respiratory: No shortness of breath Cardiovascular: No chest pain Gastrointestinal: other (Enterostomy on the right side of the abdomen and a colostomy on the left side.) Genitourinary: other (He has rash over the scrotum and penis.) Skin: other (Rash over the groins and scrotum) Neurologic: confusion Endocrine: no complaints Lymphatic: no complaints Past Medical History Medical History: cancer, congestive heart failure, GERD, high cholesterol, hypertension, peptic ulcer disease, urinary tract infection Home Meds Active Scripts Ciprofloxacin Hcl* (Ciprofloxacin Hcl*) 250 Mg Tablet, 250 MG PO BID for 7 Days, #14 TAB Prov:BREEZY FRIAS MD 01/31/19 Guaifenesin (Guaifenesin) 600 Mg Tablet.sa, 600 MG PO BID for 30 Days, #60 Prov:BREEZY FRIAS MD 01/31/19 Acetylcysteine* (Mucomyst*) 4 Ml Soln, 2 ML NEB Q6H RESP THERAPY for 30 Days, #1 BOTTLE Prov:BREEZY FRIAS MD 01/31/19 Bupropion Hcl* (Bupropion XL*) 150 Mg Tab.er.24h, 300 MG PO DAILY for 30 Days, #30 Prov:BREEZY FRIAS MD 01/31/19 Reported Medications Fluticasone/Vilanterol (Breo Ellipta 200-25 Mcg INH) 1 Each Blst.w.dev, 1 PUFF INHALATION DAILY, #1 INHALER 01/09/19 Diltiazem Hcl (Diltiazem) 120 Mg Capsr, 120 MG PO QAM, #30 CAP 01/09/19 Pantoprazole* (Pantoprazole*) 40 Mg Tablet.dr, 40 MG PO AC BREAKFAST, TAB 01/09/19 Mirtazapine* (Mirtazapine*) 15 Mg Tablet, 15 MG PO HS, TAB 01/09/19 Metoprolol Tartrate* (Lopressor*) 50 Mg Tab, 50 MG PO BID, #60 TAB 01/09/19 Docusate Sodium* (Colace*) 100 Mg Capsule, 100 MG PO QHS, #30 CAP 01/09/19 Diazepam* (Diazepam*) 2 Mg Tablet, 2 MG PO QHS, TAB 01/09/19 Atorvastatin Calcium* (Atorvastatin Calcium*) 20 Mg Tablet, 20 MG PO QHS, #30 TAB 01/09/19 Acetaminophen* (Acetaminophen*) 325 Mg Tablet, 650 MG PO NEEDED PRN for PAIN AND OR ELEVATED TEMP, #30 TAB 01/09/19 Apixaban* (Eliquis*) 5 Mg Tablet, 5 MG PO BID, TAB 01/09/19 Medications Current Medications Acetaminophen (Tylenol Tab) 650 mg Q4 PRN PO MILD PAIN(1-3)OR ELEVATED TEMP Last administered on 02/12/19 01:20; Admin Dose 650 MG; Start 02/06/19 at 00:00 Acetylcysteine (Mucomyst) 2 ml Q6H RESP THERAPY NEB Last administered on 02/18/19 14:10; Admin Dose 2 ML; Start 02/06/19 at 02:00 Apixaban (Eliquis) 2.5 mg BID PO Last administered on 02/18/19 09:44; Admin Dose 2.5 MG; Start 02/06/19 at 09:00 Atorvastatin Calcium (Lipitor) 20 mg QHS PO Last administered on 02/17/19 21:31; Admin Dose 20 MG; Start 02/06/19 at 21:00 Bupropion HCl (Wellbutrin Xl) 300 mg DAILY PO Last administered on 02/18/19 09:31; Admin Dose 300 MG; Start 02/06/19 at 09:00 Docusate Sodium (Colace) 100 mg QHS PO Last administered on 02/17/19 21:31; Admin Dose 100 MG; Start 02/06/19 at 21:00 Fluticasone/ Vilanterol (Breo Ellipta 200-25 Mcg Inh) 1 inh DAILY INH Last administered on 02/18/19 09:44; Admin Dose 1 INH; Start 02/06/19 at 09:00 Mirtazapine (Remeron) 15 mg HS PO Last administered on 02/17/19 21:31; Admin Dose 15 MG; Start 02/06/19 at 21:00 Pantoprazole (Protonix Tab) 40 mg AC BREAKFAST PO Last administered on 02/18/19 at 09:30; Admin Dose 40 MG; Start 02/06/19 at 07:20 IV Flush (NS 3 ml) 3 ml PER PROTOCOL IV Last administered on 02/06/19at 00:04; Admin Dose 3 ML; Start 02/06/19 at 00:00 Ondansetron HCl (Zofran Inj) 4 mg Q6H PRN IV NAUSEA/VOMITING; Start 02/06/19 at 00:00 Magnesium Hydroxide (Milk Of Mag) 30 ml DAILY PRN PO .CONSTIPATION; Start 02/06/19 at 00:00 Sodium Biphosphate/ Sodium Phosphate (Fleet Enema) 133 ml DAILY PRN [place] .CONSTIPATION; Start 02/06/19 at 00:00 [facility] This patient sawyer... PRN PRN XX WOUND CARE; Start 02/06/19 at 08:00 Albuterol/ Ipratropium (Duoneb) 3 ml Q6H RESP THERAPY HHN Last administered on 02/18/19at 14:10; Admin Dose 3 ML; Start 02/06/19 at 08:30 Metoprolol Tartrate (Lopressor) 25 mg BID PO Last administered on 02/18/19at 09:31; Admin Dose 25 MG; Start 02/09/19 at 21:00 Doxycycline Hyclate (Vibramycin) 100 mg BID PO Last administered on 02/18/19at 09:31; Admin Dose 100 MG; Start 02/12/19 at 21:00 Sodium Chloride 1,000 ml @ 80 mls/hr [id number] IV ; Start 02/18/19 at 17:30 Guaifenesin (Robitussin Liquid Cup) 200 mg Q4H PRN PO COUGH; Start 02/18/19 at 18:00 Allergies: Coded Allergies: No Known Allergy (Unverified , 02/05/19) Past Surgical History Past Surgical Hx: angioplasty, bowel resection, other (Enterostomy and colostomy) Social History Alcohol Use: occasionally Smoking Status: Former smoker Drug Use: none Exam/Review of Systems Exam Vitals Vital Signs Date Temp Pulse Resp B/P (MAP) Pulse Ox O2 O2 Flow FiO2 Time Delivery Rate 02/18/19 3.0 14:28 02/18/19 74 16 97 Nasal 14:10 Cannula 02/18/19 97.8 130/78 14:02 (95) 02/17/19 13:59 Intake and Output 02/17/19 02/17/19 02/18/19 1515:00 23:00 07:00 IntakeIntake Total 780 ml 120 ml 120 ml OutputOutput Total 950 ml 200 ml 200 ml BalanceBalance -170 ml -80 ml -80 ml Constitutional: alert Psych: no complaints Head: normocephalic Eyes: nl conjunctiva ENMT: nl external ears & nose Neck: supple Respiratory: No wheezing Cardiovascular: No jugular venous distention (JVD) Gastrointestinal: soft, other (Enterostomy right side of the abdomen and colostomy on the left side) Genitourinary - Male: other (He does have rash over the scrotum and the penis. He does have phimosis and when the nurses are doing the in and out cath they are not able to see the meatus and the urine is easily contaminated from the drainage underneath the foreskin. As I was examining him he did urinate. I therefore went ahead and did a straight cath on him after retracting the foreski n and cleaning the glans penis and that gives me an idea about his postvoid residual.) Extremities: No calf tenderness Skin: rash or lesions (Over the groin and scrotum) Results Result Diagram: 02/18/19 0432 02/18/19 0637 Results 24hrs Laboratory Tests Test 02/18/19 04:32 02/18/19 06:37 White Blood Count 16.7 H Red Blood Count 4.01 L Hemoglobin 11.1 L Hematocrit 36.1 L Mean Corpuscular Volume 90.0 Mean Corpuscular Hemoglobin 27.7 L Mean Corpuscular Hemoglobin Concent 30.7 L Red Cell Distribution Width 16.2 H Platelet Count 207 Mean Platelet Volume 12.2 H Immature Granulocytes % 0.600 H Neutrophils % 75.2 Lymphocytes % 10.7 L Monocytes % 10.6 Eosinophils % 2.4 Basophils % 0.5 Nucleated Red Blood Cells % 0.0 Immature Granulocytes # 0.100 H Neutrophils # 12.6 H Lymphocytes # 1.8 Monocytes # 1.8 H Eosinophils # 0.4 Basophils # 0.1 Nucleated Red Blood Cells # 0.0 Erythrocyte Sedimentation Rate 130.0 H Ammonia 15 Sodium Level 150 H Potassium Level 5.1 Chloride Level 117 H Carbon Dioxide Level 21 Anion Gap 12 Blood Urea Nitrogen 67 H Creatinine 1.85 H Est Glomerular Filtrat Rate mL/min Glucose Level 115 Calcium Level 11.4 H Total Bilirubin 0.1 L Direct Bilirubin 0.00 Indirect Bilirubin 0.1 Aspartate Amino Transf (AST/SGOT) 16 Alanine Aminotransferase (ALT/SGPT) < 6 L Alkaline Phosphatase 99 Total Protein 8.4 H Albumin 3.9 Globulin 4.50 H Albumin/Globulin Ratio 0.[address] scan of the chest abdomen and pelvis showed: Mild patchy residual consolidation within the dependent portions of the bilateral lung bases, improved. Mild bilateral emphysematous changes with diffuse bronchial wall thickening compatible with sequelae of COPD. Lobular mildly hyperdense structure of the lower pole left kidney, unchanged. Please refer to recent CT abdomen 01/19/2019 for recommendations. Surgical changes of partial colon resection with enterostomy within the right side of the abdomen and colostomy within the left side of the abdomen. Surgical changes of the distal colon within the pelvis are also present. There is no abnormality of the anastomosis. Mild subacute/chronic compression fractures of T12, L1 and L2, unchanged since 01/16/2019. Medications Medication Current Medications Acetaminophen (Tylenol Tab) 650 mg Q4 PRN PO MILD PAIN(1-3)OR ELEVATED TEMP Last administered on 02/12/19 01:20; Admin Dose 650 MG; Start 02/06/19 at 00:00 Acetylcysteine (Mucomyst) 2 ml Q6H RESP THERAPY NEB Last administered on 02/18/19 14:10; Admin Dose 2 ML; Start 02/06/19 at 02:00 Apixaban (Eliquis) 2.5 mg BID PO Last administered on 02/18/19 09:44; Admin D ose 2.5 MG; Start 02/06/19 at 09:00 Atorvastatin Calcium (Lipitor) 20 mg QHS PO Last administered on 02/17/19 21:31; Admin Dose 20 MG; Start 02/06/19 at 21:00 Bupropion HCl (Wellbutrin Xl) 300 mg DAILY PO Last administered on 02/18/19 09:31; Admin Dose 300 MG; Start 02/06/19 at 09:00 Docusate Sodium (Colace) 100 mg QHS PO Last administered on 02/17/19 21:31; Admin Dose 100 MG; Start 02/06/19 at 21:00 Fluticasone/ Vilanterol (Breo Ellipta 200-25 Mcg Inh) 1 inh DAILY INH Last administered on 02/18/19 09:44; Admin Dose 1 INH; Start 02/06/19 at 09:00 Mirtazapine (Remeron) 15 mg HS PO Last administered on 02/17/19 21:31; Admin Dose 15 MG; Start 02/06/19 at 21:00 Pantoprazole (Protonix Tab) 40 mg AC BREAKFAST PO Last administered on 02/18/19 09:30; Admin Dose 40 MG; Start 02/06/19 at 07:20 IV Flush (NS 3 ml) 3 ml PER PROTOCOL IV Last administered on 02/06/19 00:04; Admin Dose 3 ML; Start 02/06/19 at 00:00 Ondansetron HCl (Zofran Inj) 4 mg Q6H PRN IV NAUSEA/VOMITING; Start 02/06/19 at 00:00 Magnesium Hydroxide (Milk Of Mag) 30 ml DAILY PRN PO .CONSTIPATION; Start 02/06/19 at 00:00 Sodium Biphosphate/ Sodium Phosphate (Fleet Enema) 133 ml DAILY PRN [place] .CONSTIPATION; Start 02/06/19 at 00:00 Miscellaneous Information (Pending [facility] Order For Wound Care) This patient sawyer... PRN PRN XX WOUND CARE; Start 02/06/19 at 08:00 Albuterol/ Ipratropium (Duoneb) 3 ml Q6H RESP THERAPY HHN Last administered on 02/18/19 14:10; Admin Dose 3 ML; Start 02/06/19 at 08:30 Metoprolol Tartrate (Lopressor) 25 mg BID PO Last administered on 02/18/19 09:31; Admin Dose 25 MG; Start 02/09/19 at 21:00 Doxycycline Hyclate (Vibramycin) 100 mg BID PO Last administered on 02/18/19 09:31; Admin Dose 100 MG; Start 02/12/19 at 21:00 Sodium Chloride 1,000 ml @ 80 mls/hr [id number] IV ; Start 02/18/19 at 17:30 Guaifenesin (Robitussin Liquid Cup) 200 mg Q4H PRN PO COUGH; Start 02/18/19 at 18:00 SARITHA OWEN MD Feb 18, 2019 18:31
[2019-02-18 20:43] VITALS: BP 152/70; PULSE 93; RESP 16
[2019-02-18] MEDS: MIRTAZAPINE 15 MG TAB PO SCH (21:18)
[2019-02-18] MEDS: DOCUSATE SODIUM 100 MG CAP PO SCH (21:18)
[2019-02-18] MEDS: ATORVASTATIN 20 MG TAB PO SCH (21:19)
[2019-02-18] MEDS: AMPHOTERICIN B IRR SCH (22:04)
[2019-02-19] MEDS: ACETYLCYSTEINE 20% 4 ML VIAL NEB SCH ×4 (01:23→20:58)
[2019-02-19] MEDS: ALBUTEROL/IPRATROPIUM (NEB) 3 ML AMP HHN SCH ×4 (01:23→20:58)
[2019-02-19 04:23] VITALS: BP 116/55; PULSE 87; RESP 18
[2019-02-19] MEDS: SOD CHLORIDE 0.45% 1,000 ML IV SCH (05:40)
--- NOTE | 2019-02-19 06:31 | PQ ---
Date/Time of Note Date/Time of Note DATE: 02/19/19 TIME: 06:24 Physician Query Documentation Clarification Per RN Integumentary Wound Care Assessment Right NARE * Wound Type Ulcer, Pressure * Pressure Ulcer Stage III Please further specify if you agree that the above diagnosis was present on admission To facilitate accurate and complete coding, please mauro ( x ) for the answer that applies: (x ) Yes ( ) No Please provide your response by clicking edit document,making your choice (x ), clicking ok/save and finally clicking sign. You may alsodocument your response on your progress notes. Thank you for your time. Sincerely, Mahesh Barnes [facility] Specialist [address] [id number] [email or web address] Copies To: CC: BREEZY FRIAS MD ; MAHESH BARNES Feb 19, 2019 06:31 BREEZY FRIAS MD Feb 19, 2019 16:49
--- NOTE | 2019-02-19 07:14 | CONS ---
Assessment/Plan Assessment/Plan Hospital Course (Demo Recall) 1) lethargy this seems to wax and wane pt's caregiver that last time he was in the hospital he got more lethargic from the meds he was given I doubt infection is causing his lethargy at this time 02/18 - pt less lethargic this a.m. but has confusion 2) pyuria initial urine cx grew 50k c.glabrata and repeat shows <10k of c.alb I doubt either one is the cause of his pyuria agree to stopping of cefepime since he has neg cx for bacteria x2 I doubt he has an active UTI he may have some prostatitis and a trial of doxycycline to treat atypicals might be of benefit I will start doxycycline to treat possible prostatitis and if his pyuria does not resolve then I would recommend urology consult 02/13 - pt tolerating his doxycycline so far, continue for one month and re-check u/a, urine cx 1 week after he is done with his antibiotics 02/17 - due to elevated WBC will re-order u/a and urine cx 02/18 - pyuria persists urine cx has 5K colonies of likely enterococcus which is not significant continue doxycycline at present consider urology consult I will order urine for AFB cx 02/19 - urine cx from 02/17 only had 5k of enterococcus urine cx from 02/[address] Hancock noted pus in his urine when he urinated and believes pt retains small amout of pus in bladder due to small amout of residual urine left when he urinates pt has been placed on ampho B bladder irrigation, if repeat urine cx from yesterday remains neg can d/c the ampho B doubt pt would benefit from IV ampho B, if vijay is present the bladder irrigation should be sufficient continue with doxycycline CT shows no change in hyperdense mass to L lower kidney 3) COPD breathing is currently stable 02/17- CXR does not show raimundo pneumonia, his O2 sats have been stable will order procalcitonin, doubt he has pneumonia 02/18 - breathing is stable and pt appears comfortable procalcitonin is pending WBC is down a bit today CT chest is pending 02/19 - CT chest has smaller amount of infiltrates to lower lungs, doubt he has active pneumonia 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 5) hx of DVT 6) CAD 7) HTN 8) hx of CVA 9) leukocytosis 02/17 - unexplained, no obvious source of infection CXR shows atelectasis/small pleural effusions and no change in O2 sats will order procalcitonin, u/a and urine cx 02/18 - urine cx only has 5k colonies of likely enterococcus which is not significant breathing is stable no diarrhea WBC a bit improved no additional antibiotics at this time CT chest/abd/pelv is pending Consultation Date/Type/Reason Admit Date/Time Feb 05, 2019 at 20:14 Initial Consult Date 02/12/19 Type of Consult ID Requesting Provider: BREEZY FRIAS MD Date/Time of Note DATE: 02/19/19 TIME: 07:04 24 HR Interval Summary Free Text/Dictation pt seen by Dr. Hancock and started on ampho B bladder irrigation nurse reports no coughing pt keeps trying to pull at his beard catheter no V ileostomy had 100c output overnight Exam/Review of Systems Exam Vitals Vital Signs Date Temp Pulse Resp B/P (MAP) Pulse Ox O2 O2 Flow FiO2 Time Delivery Rate 02/19/19 98.4 87 18 116/55 97 Nasal 2.0 04:23 (75) Cannula 02/19/19 21 01:25 Intake and Output 02/18/19 02/18/19 02/19/19 1515:00 23:00 07:00 IntakeIntake Total 320 ml 220 ml 940 ml OutputOutput Total 250 ml 1100 ml BalanceBalance 320 ml -30 ml -160 ml Constitutional: non-verbal Respiratory: clear to auscultation Cardiovascular: regular rate and rhythm Gastrointestinal: soft, non-tender Results Result Diagram: 02/19/19 0437 02/19/19 0437 Results 24hrs Laboratory Tests Test 02/18/19 18:15 02/19/19 04:37 Urine Color YELLOW Urine Clarity TURBID A Urine pH 5.0 Urine Specific [place] 1.017 Urine Ketones NEGATIVE Urine Nitrite NEGATIVE Urine Bilirubin NEGATIVE Urine Urobilinogen NEGATIVE Urine Leukocyte Esterase 2+ H Urine Microscopic RBC 114 H Urine Microscopic WBC > 182 H Urine Squamous Epithelial Cells FEW Urine Bacteria MODERATE Urine Mucus MODERATE Urine Yeast (Budding) MANY A Urine Hemoglobin 2+ H Urine Glucose NEGATIVE Urine Total Protein 2+ H White Blood Count 14.8 H Red Blood Count 3.76 L Hemoglobin 10.4 L Hematocrit 34.0 L Mean Corpuscular Volume 90.4 Mean Corpuscular Hemoglobin 27.7 L Mean Corpuscular Hemoglobin Concent 30.6 L Red Cell Distribution Width 16.3 H Platelet Count 197 Mean Platelet Volume 12.4 H Immature Granulocytes % 0.500 H Neutrophils % 72.8 Lymphocytes % 11.6 L Monocytes % 12.3 H Eosinophils % 2.2 Basophils % 0.6 Nucleated Red Blood Cells % 0.0 Immature Granulocytes # 0.070 H Neutrophils # 10.8 H Lymphocytes # 1.7 Monocytes # 1.8 H Eosinophils # 0.3 Basophils # 0.1 Nucleated Red Blood Cells # 0.0 Sodium Level 150 H Potassium Level 4.7 Chloride Level 118 H Carbon Dioxide Level 21 Anion Gap 11 Blood Urea Nitrogen 68 H Creatinine 2.03 H Est Glomerular Filtrat Rate mL/min Glucose Level 98 Calcium Level 10.7 H Medications Medication Current Medications Acetaminophen (Tylenol Tab) 650 mg Q4 PRN PO MILD PAIN(1-3)OR ELEVATED TEMP [place] st administered on 02/12/19 01:20; Admin Dose 650 MG; Start 02/06/19 at 00:00 Acetylcysteine (Mucomyst) 2 ml Q6H RESP THERAPY NEB Last administered on 02/19/19 01:23; Admin Dose 2 ML; Start 02/06/19 at 02:00 Apixaban (Eliquis) 2.5 mg BID PO Last administered on 02/18/19 21:19; Admin Dose 2.5 MG; Start 02/06/19 at 09:00 Atorvastatin Calcium (Lipitor) 20 mg QHS PO Last administered on 02/18/19 21:19; Admin Dose 20 MG; Start 02/06/19 at 21:00 Bupropion HCl (Wellbutrin Xl) 300 mg DAILY PO Last administered on 02/18/19 09:31; Admin Dose 300 MG; Start 02/06/19 at 09:00 Docusate Sodium (Colace) 100 mg QHS PO Last administered on 02/18/19 21:18; Admin Dose 100 MG; Start 02/06/19 at 21:00 Fluticasone/ Vilanterol (Breo Ellipta 200-25 Mcg Inh) 1 inh DAILY INH Last administered on 02/18/19 09:44; Admin Dose 1 INH; Start 02/06/19 at 09:00 Mirtazapine (Remeron) 15 mg HS PO Last administered on 02/18/19 21:18; Admin Dose 15 MG; Start 02/06/19 at 21:00 Pantoprazole (Protonix Tab) 40 mg AC BREAKFAST PO Last administered on 02/18/19 09:30; Admin Dose 40 MG; Start 02/06/19 at 07:20 IV Flush (NS 3 ml) 3 ml PER PROTOCOL IV Last administered on 02/06/19at 00:04; Admin Dose 3 ML; Start 02/06/19 at 00:00 Ondansetron HCl (Zofran Inj) 4 mg Q6H PRN IV NAUSEA/VOMITING; Start 02/06/19 at 00:00 Magnesium Hydroxide (Milk Of Mag) 30 ml DAILY PRN PO .CONSTIPATION; Start 02/06/19 at 00:00 Sodium Biphosphate/ Sodium Phosphate (Fleet Enema) 133 ml DAILY PRN [place] .CONSTIPATION; Start 02/06/19 at 00:00 Miscellaneous Information (Pending [facility] Order For Wound Care) This patient sawyer... PRN PRN XX WOUND CARE; Start 02/06/19 at 08:00 Albuterol/ Ipratropium (Duoneb) 3 ml Q6H RESP THERAPY HHN Last administered on 02/19/19 01:23; Admin Dose 3 ML; Start 02/06/19 at 08:30 Metoprolol Tartrate (Lopressor) 25 mg BID PO Last administered on 02/18/19 21:19; Admin Dose 25 MG; Start 02/09/19 at 21:00 Doxycycline Hyclate (Vibramycin) 100 mg BID PO Last administered on 02/18/19 21:18; Admin Dose 100 MG; Start 02/12/19 at 21:00 Sodium Chloride 1,000 ml @ 80 mls/hr [id number] IV Last administered on 02/19/19 05:40; Admin Dose 80 MLS/HR; Start 02/18/19 at 17:30 Guaifenesin (Robitussin Liquid Cup) 200 mg Q4H PRN PO COUGH; Start 02/18/19 at 18:00 Amphotericin B (Fungizone) 1,000 ml Q24H IRR Last administered on 02/18/19at 22:04; Admin Dose 1,000 ML; Start 02/18/19 at 20:00; Stop 02/22/19 at 20:01 MIGUELITO VASQUEZ MD Feb 19, 2019 07:14
[2019-02-19 07:57] VITALS: BP 141/63; PULSE 83; RESP 18
[2019-02-19] MEDS: DOXYCYCLINE 100 MG TAB PO SCH ×2 (09:13→20:14)
[2019-02-19] MEDS: BUPROPION (XL) 150 MG TAB PO SCH (09:13)
[2019-02-19] MEDS: PANTOPRAZOLE (EC) 40 MG TAB PO SCH (09:14)
[2019-02-19] MEDS: METOPROLOL 25 MG TAB PO SCH ×2 (09:16→21:34)
[2019-02-19] MEDS: APIXABAN 5 MG TABLET PO SCH ×2 (09:17→20:14)
[2019-02-19] MEDS: BALSAM PERU/CASTOR OIL 60 GM TUBE TOP SCH ×2 (09:52→20:14)
[2019-02-19] MEDS: FLUTICASONE/VILANTEROL 200-25 INH DEVICE INH SCH (09:52)
[2019-02-19 14:00] VITALS: BP 125/66; PULSE 80; RESP 18
[2019-02-19] MEDS: AMPHOTERICIN B IRR SCH (15:40)
--- NOTE | 2019-02-19 16:41 | PN ---
Date/Time of Note Date/Time of Note DATE: 02/19/19 TIME: 16:24 Assessment/Plan VTE Prophylaxis Risk score (from [facility] [place]0 risk: 4 SCD applied (from [facility] [place]): Yes Pharmacological prophylaxis: apixaban Lines/Catheters IV Catheter Type (from [facility]): Peripheral IV Urinary Cath still in place: Yes Reason Cath still needed: pres ulcer contaminated by urine Assessment/Plan Problems: (1) Abnormal urinalysis Status: Acute Comment: Agree with Dr. Hancock and Dr. Taylor's plan. Will do amphotericin bladder washing while awaiting repeat urine cx. (2) Leukocytosis Status: Acute Comment: No obvious source of sepsis/infection. May be due to process or aspiration pneumonitis without pneumonia. (3) Dehydration Status: Acute Comment: Increasing bun/creatinine. Will increase IV fluids. 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 (7) Anxiety and depression Status: Chronic (8) Weakness Status: Chronic Result Diagram: 02/19/19 0437 02/19/19 0437 Results 24hrs Laboratory Tests Test 02/18/19 18:15 02/19/19 04:37 Urine Color YELLOW Urine Clarity TURBID A Urine pH 5.0 Urine Specific [place] 1.017 Urine Ketones NEGATIVE Urine Nitrite NEGATIVE Urine Bilirubin NEGATIVE Urine Urobilinogen NEGATIVE Urine Leukocyte Esterase 2+ H Urine Microscopic RBC 114 H Urine Microscopic WBC > 182 H Urine Squamous Epithelial Cells FEW Urine Bacteria MODERATE Urine Mucus MODERATE Urine Yeast (Budding) MANY A Urine Hemoglobin 2+ H Urine Glucose NEGATIVE Urine Total Protein 2+ H White Blood Count 14.8 H Red Blood Count 3.76 L Hemoglobin 10.4 L Hematocrit 34.0 L Mean Corpuscular Volume 90.4 Mean Corpuscular Hemoglobin 27.7 L Mean Corpuscular Hemoglobin Concent 30.6 L Red Cell Distribution Width 16.3 H Platelet Count 197 Mean Platelet Volume 12.4 H Immature Granulocytes % 0.500 H Neutrophils % 72.8 Lymphocytes % 11.6 L Monocytes % 12.3 H Eosinophils % 2.2 Basophils % 0.6 Nucleated Red Blood Cells % 0.0 Immature Granulocytes # 0.070 H Neutrophils # 10.8 H Lymphocytes # 1.7 Monocytes # 1.8 H Eosinophils # 0.3 Basophils # 0.1 Nucleated Red Blood Cells # 0.0 Sodium Level 150 H Potassium Level 4.7 Chloride Level 118 H Carbon Dioxide Level 21 Anion Gap 11 Blood Urea Nitrogen 68 H Creatinine 2.03 H Est Glomerular Filtrat Rate mL/min Glucose Level 98 Calcium Level 10.7 H Exam/Review of Systems Exam Vitals Vital Signs Date Temp Pulse Resp B/P (MAP) Pulse Ox O2 O2 Flow FiO2 Time Delivery Rate 02/19/19 78 18 96 Nasal 1.0 14:25 Cannula 02/19/19 98.6 141/63 07:57 (89) 02/19/19 21 01:25 Intake and Output 02/18/19 02/18/19 02/19/19 1515:00 23:00 07:00 IntakeIntake Total 320 ml 220 ml 940 ml OutputOutput Total 250 ml 1100 ml BalanceBalance 320 ml -30 ml -160 ml Exam Patient lethargic but arousable and knows my name. Head: normocephalic, atraumatic Eyes: nl conjunctiva ENMT: nl external ears & nose Neck: supple Respiratory: clear to auscultation, normal air movement Cardiovascular: regular rate and rhythm Gastrointestinal: soft Musculoskeletal: nl extremities to inspection Results Results 24hrs Laboratory Tests Test 02/18/19 18:15 02/19/19 04:37 Urine Color YELLOW Urine Clarity TURBID A Urine pH 5.0 Urine Specific [place] 1.017 Urine Ketones NEGATIVE Urine Nitrite NEGATIVE Urine Bilirubin NEGATIVE Urine Urobilinogen NEGATIVE Urine Leukocyte Esterase 2+ H Urine Microscopic RBC 114 H Urine Microscopic WBC > 182 H Urine Squamous Epithelial Cells FEW Urine Bacteria MODERATE Urine Mucus MODERATE Urine Yeast (Budding) MANY A Urine Hemoglobin 2+ H Urine Glucose NEGATIVE Urine Total Protein 2+ H White Blood Count 14.8 H Red Blood Count 3.76 L Hemoglobin 10.4 L Hematocrit 34.0 L Mean Corpuscular Volume 90.4 Mean Corpuscular Hemoglobin 27.7 L Mean Corpuscular Hemoglobin Concent 30.6 L Red Cell Distribution Width 16.3 H Platelet Count 197 Mean Platelet Volume 12.4 H Immature Granulocytes % 0.500 H Neutrophils % 72.8 Lymphocytes % 11.6 L Monocytes % 12.3 H Eosinophils % 2.2 Basophils % 0.6 Nucleated Red Blood Cells % 0.0 Immature Granulocytes # 0.070 H Neutrophils # 10.8 H Lymphocytes # 1.7 Monocytes # 1.8 H Eosinophils # 0.3 Basophils # 0.1 Nucleated Red Blood Cells # 0.0 Sodium Level 150 H Potassium Level 4.7 Chloride Level 118 H Carbon Dioxide Level 21 Anion Gap 11 Blood Urea Nitrogen 68 H Creatinine 2.03 H Est Glomerular Filtrat Rate mL/min Glucose Level 98 Calcium Level 10.7 H Medications Medication Current Medications Acetaminophen (Tylenol Tab) 650 mg Q4 PRN PO MILD PAIN(1-3)OR ELEVATED TEMP Last administered on 02/12/19 01:20; Admin Dose 650 MG; Start 02/06/19 at 00:00 Acetylcysteine (Mucomyst) 2 ml Q6H RESP THERAPY NEB Last administered on 02/19/19 14:34; Admin Dose 2 ML; Start 02/06/19 at 02:00 Apixaban (Eliquis) 2.5 mg BID PO Last administered on 02/19/19 09:17; Admin Dose 2.5 MG; Start 02/06/19 at 09:00 Atorvastatin Calcium (Lipitor) 20 mg QHS PO Last administered on 02/18/19 21 :19; Admin Dose 20 MG; Start 02/06/19 at 21:00 Bupropion HCl (Wellbutrin Xl) 300 mg DAILY PO Last administered on 02/19/19 09:13; Admin Dose 300 MG; Start 02/06/19 at 09:00 Docusate Sodium (Colace) 100 mg QHS PO Last administered on 02/18/19 21:18; Admin Dose 100 MG; Start 02/06/19 at 21:00 Fluticasone/ Vilanterol (Breo Ellipta 200-25 Mcg Inh) 1 inh DAILY INH Last administered on 02/19/19 09:52; Admin Dose 1 INH; Start 02/06/19 at 09:00 Mirtazapine (Remeron) 15 mg HS PO Last administered on 02/18/19 21:18; Admin Dose 15 MG; Start 02/06/19 at 21:00 Pantoprazole (Protonix Tab) 40 mg AC BREAKFAST PO Last administered on 02/19/19 09:14; Admin Dose 40 MG; Start 02/06/19 at 07:20 IV Flush (NS 3 ml) 3 ml PER PROTOCOL IV Last administered on 02/06/19at 00:04; Admin Dose 3 ML; Start 02/06/19 at 00:00 Ondansetron HCl (Zofran Inj) 4 mg Q6H PRN IV NAUSEA/VOMITING; Start 02/06/19 at 00:00 Magnesium Hydroxide (Milk Of Mag) 30 ml DAILY PRN PO .CONSTIPATION; Start 02/06/19 at 00:00 Sodium Biphosphate/ Sodium Phosphate (Fleet Enema) 133 ml DAILY PRN [place] .CONSTIPATION; Start 02/06/19 at 00:00 Miscellaneous Information (Pending Santyl Order For Wound Care) This patient sawyer... PRN PRN XX WOUND CARE; Start 02/06/19 at 08:00 Albuterol/ Ipratropium (Duoneb) 3 ml Q6H RESP THERAPY HHN Last administered on 02/19/19at 14:34; Admin Dose 3 ML; Start 02/06/19 at 08:30 Metoprolol Tartrate (Lopressor) 25 mg BID PO Last administered on 02/19/19at 09:16; Admin Dose 25 MG; Start 02/09/19 at 21:00 Doxycycline Hyclate (Vibramycin) 100 mg BID PO Last administered on 02/19/19 09:13; Admin Dose 100 MG; Start 02/12/19 at 21:00 Sodium Chloride 1,000 ml @ 80 mls/hr [id number] IV Last administered on 02/19/19at 05:40; Admin Dose 80 MLS/HR; Start 02/18/19 at 17:30 Guaifenesin (Robitussin Liquid Cup) 200 mg Q4H PRN PO COUGH; Start 02/18/19 at 18:00 Amphotericin B (Fungizone) 1,000 ml Q24H IRR Last administered on 02/19/19at 15:40; Admin Dose 1,000 ML; Start 02/18/19 at 20:00; Stop 02/22/19 at 20:01 BREEZY FRIAS MD Feb 19, 2019 16:34
[2019-02-19] MEDS: DEXTROSE 5% 1,000 ML IV SCH (18:04)
--- NOTE | 2019-02-19 19:19 | CONS ---
Consult Date/Type/Reason Admit Date/Time Feb 05, 2019 at 20:14 Initial Consult Date 02/18/19 Type of Consultation: urology Reason for Consultation pyuria Requesting Provider: BREEZY FRIAS MD Date/Time of Note DATE: 02/19/19 TIME: 19:12 Subjective The patient is confused. Objective Vitals Vital Signs Date Temp Pulse Resp B/P (MAP) Pulse Ox O2 O2 Flow FiO2 Time Delivery Rate 02/19/19 78 18 96 Nasal 1.0 14:25 Cannula 02/19/19 98.6 141/63 07:57 (89) 02/19/19 21 01:25 Intake and Output 02/18/19 02/18/19 02/19/19 1515:00 23:00 07:00 IntakeIntake Total 320 ml 220 ml 940 ml OutputOutput Total 250 ml 1100 ml BalanceBalance 320 ml -30 ml -160 ml Exam abdomen is soft,the beard is draining slightly cloudy urine with the Amphotericin irrigation. Results/Medications Result Diagram: 02/19/19 0437 02/19/19 0437 Results 24 hrs Laboratory Tests Test 02/19/19 04:37 White Blood Count 14.8 H Red Blood Count 3.76 L Hemoglobin 10.4 L Hematocrit 34.0 L Mean Corpuscular Volume 90.4 Mean Corpuscular Hemoglobin 27.7 L Mean Corpuscular Hemoglobin Concent 30.6 L Red Cell Distribution Width 16.3 H Platelet Count 197 Mean Platelet Volume 12.4 H Immature Granulocytes % 0.500 H Neutrophils % 72.8 Lymphocytes % 11.6 L Monocytes % 12.3 H Eosinophils % 2.2 Basophils % 0.6 Nucleated Red Blood Cells % 0.0 Immature Granulocytes # 0.070 H Neutrophils # 10.8 H Lymphocytes # 1.7 Monocytes # 1.8 H Eosinophils # 0.3 Basophils # 0.1 Nucleated Red Blood Cells # 0.0 Sodium Level 150 H Potassium Level 4.7 Chloride Level 118 H Carbon Dioxide Level 21 Anion Gap 11 Blood Urea Nitrogen 68 H Creatinine 2.03 H Est Glomerular Filtrat Rate mL/min Glucose Level 98 Calcium Level 10.7 H Home Meds Active Scripts Ciprofloxacin Hcl* (Ciprofloxacin Hcl*) 250 Mg Tablet, 250 MG PO BID for 7 Days, #14 TAB Prov:BREEZY FRIAS MD 01/31/19 Guaifenesin (Guaifenesin) 600 Mg Tablet.sa, 600 MG PO BID for 30 Days, #60 Prov:BREEZY FRIAS MD 01/31/19 Acetylcysteine* (Mucomyst*) 4 Ml Soln, 2 ML NEB Q6H RESP THERAPY for 30 Days, #1 BOTTLE Prov:BREEZY FRIAS MD 01/31/19 Bupropion Hcl* (Bupropion XL*) 150 Mg Tab.er.24h, 300 MG PO DAILY for 30 Days, #30 Prov:BREEZY FRIAS MD 01/31/19 Reported Medications Fluticasone/Vilanterol (Breo Ellipta 200-25 Mcg INH) 1 Each Blst.w.dev, 1 PUFF INHALATION DAILY, #1 INHALER 01/09/19 Diltiazem Hcl (Diltiazem) 120 Mg Capsr, 120 MG PO QAM, #30 CAP 01/09/19 Pantoprazole* (Pantoprazole*) 40 Mg Tablet.dr, 40 MG PO AC BREAKFAST, TAB 01/09/19 Mirtazapine* (Mirtazapine*) 15 Mg Tablet, 15 MG PO HS, TAB 01/09/19 Metoprolol Tartrate* (Lopressor*) 50 Mg Tab, 50 MG PO BID, #60 TAB 01/09/19 Docusate Sodium* (Colace*) 100 Mg Capsule, 100 MG PO QHS, #30 CAP 01/09/19 Diazepam* (Diazepam*) 2 Mg Tablet, 2 MG PO QHS, TAB 01/09/19 Atorvastatin Calcium* (Atorvastatin Calcium*) 20 Mg Tablet, 20 MG PO QHS, #30 TAB 01/09/19 Acetaminophen* (Acetaminophen*) 325 Mg Tablet, 650 MG PO NEEDED PRN for PAIN AND OR ELEVATED TEMP, #30 TAB 01/09/19 Apixaban* (Eliquis*) 5 Mg Tablet, 5 MG PO BID, TAB 01/09/19 Medications Current Medications Acetaminophen (Tylenol Tab) 650 mg Q4 PRN PO MILD PAIN(1-3)OR ELEVATED TEMP Last administered on 02/12/19at 01:20; Admin Dose 650 MG; Start 02/06/19 at 00:00 Acetylcysteine (Mucomyst) 2 ml Q6H RESP THERAPY NEB Last administered on 02/19/19at 14:34; Admin Dose 2 ML; Start 02/06/19 at 02:00 Apixaban (Eliquis) 2.5 mg BID PO Last administered on 02/19/19 09:17; Admin Dose 2.5 MG; Start 02/06/19 at 09:00 Atorvastatin Calcium (Lipitor) 20 mg QHS PO Last administered on 02/18/19 21:19; Admin Dose 20 MG; Start 02/06/19 at 21:00 Bupropion HCl (Wellbutrin Xl) 300 mg DAILY PO Last administered on 02/19/19 09:13; Admin Dose 300 MG; Start 02/06/19 at 09:00 Docusate Sodium (Colace) 100 mg QHS PO Last administered on 02/18/19 21:18; Admin Dose 100 MG; Start 02/06/19 at 21:00 Fluticasone/ Vilanterol (Breo Ellipta 200-25 Mcg Inh) 1 inh DAILY INH Last administered on 02/19/19 09:52; Admin Dose 1 INH; Start 02/06/19 at 09:00 Mirtazapine (Remeron) 15 mg HS PO Last administered on 02/18/19 21:18; Admin Dose 15 MG; Start 02/06/19 at 21:00 Pantoprazole (Protonix Tab) 40 mg AC BREAKFAST PO Last administered on 02/19/19 09:14; Admin Dose 40 MG; Start 02/06/19 at 07:20 IV Flush (NS 3 ml) 3 ml PER PROTOCOL IV Last administered on 02/06/19at 00:04; Admin Dose 3 ML; Start 02/06/19 at 00:00 Ondansetron HCl (Zofran Inj) 4 mg Q6H PRN IV NAUSEA/VOMITING; Start 02/06/19 at 00:00 Magnesium Hydroxide (Milk Of Mag) 30 ml DAILY PRN PO .CONSTIPATION; Start 02/06/19 at 00:00 Sodium Biphosphate/ Sodium Phosphate (Fleet Enema) 133 ml DAILY PRN [place] .CONSTIPATION; Start 02/06/19 at 00:00 Miscellaneous Information (Pending Santyl Order For Wound Care) This patient sawyer ... PRN PRN XX WOUND CARE; Start 02/06/19 at 08:00 Albuterol/ Ipratropium (Duoneb) 3 ml Q6H RESP THERAPY HHN Last administered on 02/19/19 14:34; Admin Dose 3 ML; Start 02/06/19 at 08:30 Metoprolol Tartrate (Lopressor) 25 mg BID PO Last administered on 02/19/19 09:16; Admin Dose 25 MG; Start 02/09/19 at 21:00 Doxycycline Hyclate (Vibramycin) 100 mg BID PO Last administered on 02/19/19 09:13; Admin Dose 100 MG; Start 02/12/19 at 21:00 Guaifenesin (Robitussin Liquid Cup) 200 mg Q4H PRN PO COUGH; Start 02/18/19 at 18:00 Amphotericin B (Fungizone) 1,000 ml Q24H IRR Last administered on 02/19/19 15:40; Admin Dose 1,000 ML; Start 02/18/19 at 20:00; Stop 02/22/19 at 20:01 Dextrose 1,000 ml @ 100 mls/hr Q10H IV Last administered on 02/19/19 18:04; Admin Dose 100 MLS/HR; Start 02/19/19 at 18:00 Cefepime HCl 50 ml @ 100 mls/hr Q24H IVPB ; Start 02/19/19 at 21:00 Assessment/Plan Hospital Course (Demo Recall) 83-year-old male was admitted to the hospital because of progressive lethargy. He was unable to wake up to take his medications or eat. Work up in the emergency room shows elevated WBC, BUN/creatinine and abnormal urine suggestive of dehydration and urosepsis. The patient was treated was on the biotics yet he continued to have pyuria and is urine culture did show once Enriqueta glabrata and another time Enriqueta albicans with mixed gram-positive organisms The patient is confused but he reacts to any pain. He is on bladder irrigation with amphotericin. The return is clear to slightly cloudy. The urine culture that was sent yesterday showed no growth in 24 hours. Will await the final report of the urine culture. Recheck his CBC in a.m. If the urine culture is negative we could stop the bladder irrigation and that would have allowed to flush out any purulent material out of the bladder. SARITHA OWEN MD Feb 19, 2019 19:19
[2019-02-19] MEDS: DOCUSATE SODIUM 100 MG CAP PO SCH (20:14)
[2019-02-19] MEDS: ATORVASTATIN 20 MG TAB PO SCH (20:14)
[2019-02-19] MEDS: CEFEPIME 1GM/50 ML (PMX) 50 ML IVPB SCH (20:14)
[2019-02-19] MEDS: MIRTAZAPINE 15 MG TAB PO SCH (20:15)
[2019-02-19 20:44] VITALS: BP 138/54; PULSE 59; RESP 16
[2019-02-20] MEDS: ALBUTEROL/IPRATROPIUM (NEB) 3 ML AMP HHN SCH ×4 (01:51→20:49)
[2019-02-20] MEDS: ACETYLCYSTEINE 20% 4 ML VIAL NEB SCH ×4 (01:52→20:49)
[2019-02-20] MEDS: DEXTROSE 5% 1,000 ML IV SCH ×3 (04:04→23:07)
--- NOTE | 2019-02-20 06:47 | CONS ---
Assessment/Plan Assessment/Plan Hospital Course (Demo Recall) 1) lethargy this seems to wax and wane pt's caregiver that last time he was in the hospital he got more lethargic from the meds he was given I doubt infection is causing his lethargy at this time 02/18 - pt less lethargic this a.m. but has confusion 2) pyuria initial urine cx grew 50k c.glabrata and repeat shows <10k of c.alb I doubt either one is the cause of his pyuria agree to stopping of cefepime since he has neg cx for bacteria x2 I doubt he has an active UTI he may have some prostatitis and a trial of doxycycline to treat atypicals might be of benefit I will start doxycycline to treat possible prostatitis and if his pyuria does not resolve then I would recommend urology consult 02/13 - pt tolerating his doxycycline so far, continue for one month and re-check u/a, urine cx 1 week after he is done with his antibiotics 02/17 - due to elevated WBC will re-order u/a and urine cx 02/18 - pyuria persists urine cx has 5K colonies of likely enterococcus which is not significant continue doxycycline at present consider urology consult I will order urine for AFB cx 02/19 - urine cx from 02/17 only had 5k of enterococcus urine cx from 02/[address] Hancock noted pus in his urine when he urinated and believes pt retains small amout of pus in bladder due to small amout of residual urine left when he urinates pt has been placed on ampho B bladder irrigation, if repeat urine cx from yesterday remains neg can d/c the ampho B doubt pt would benefit from IV ampho B, if vijay is present the bladder irrigation should be sufficient continue with doxycycline CT shows no change in hyperdense mass to L lower kidney 02/20 - ur cx has >100k of yeast continue with ampho B irrigation (5 days as originally planned by Dr. Hancock) 3) COPD breathing is currently stable 02/17- CXR does not show raimundo pneumonia, his O2 sats have been stable will order procalcitonin, doubt he has pneumonia 02/18 - breathing is stable and pt appears comfortable procalcitonin is pending WBC is down a bit today CT chest is pending 02/19 - CT chest has smaller amount of infiltrates to lower lungs, doubt he has active pneumonia 02/20 - stable, procalcitonin is pending 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 5) hx of DVT 6) CAD 7) HTN 8) hx of CVA 9) leukocytosis 02/17 - unexplained, no obvious source of infection CXR shows atelectasis/small pleural effusions and no change in O2 sats will order procalcitonin, u/a and urine cx 02/18 - urine cx only has 5k colonies of likely enterococcus which is not significant breathing is stable no diarrhea WBC a bit improved no additional antibiotics at this time CT chest/abd/pelv is pending 02/20 - RUE is swollen, will order RUE venous doppler continue with ampho B bladder irrigation and doxycycline await procalcitonin if elevated will start pneumonia treatment repeat urine cx has >100k yeast but doubt this is the source for his leukocytosis check cbc, cmp in a.m. pt has persistent hypercalcemia Consultation Date/Type/Reason Admit Date/Time Feb 05, 2019 at 20:14 Initial Consult Date 02/12/19 Type of Consult ID Requesting Provider: BREEZY FRIAS MD Date/Time of Note DATE: 02/20/19 TIME: 06:42 24 HR Interval Summary Free Text/Dictation pt again non verbal for me this a.m. spoke to nurse pt is eating ok and without difficulty (with assistance) no V Exam/Review of Systems Exam Vitals Vital Signs Date Temp Pulse Resp B/P (MAP) Pulse Ox O2 O2 Flow FiO2 Time Delivery Rate 02/20/19 78 18 96 Nasal 2.0 01:52 Cannula 02/19/19 98.1 138/54 20:44 (82) 02/19/19 21 01:25 Intake and Output 02/19/19 02/19/19 02/20/19 1515:00 23:00 07:00 IntakeIntake Total 1450 ml 1100 ml OutputOutput Total 300 ml 975 ml 1400 ml BalanceBalance -300 ml 475 ml -300 ml Constitutional: non-verbal Respiratory: clear to auscultation Cardiovascular: regular rate and rhythm Gastrointestinal: soft, non-tender Extremities: other (swelling of RUE) Results Result Diagram: 02/20/19 0457 02/20/19 0457 Results 24hrs Laboratory Tests Test 02/20/19 04:57 White Blood Count 16.9 H Red Blood Count 3.62 L Hemoglobin 9.7 L Hematocrit 32.3 L Mean Corpuscular Volume 89.2 Mean Corpuscular Hemoglobin 26.8 L Mean Corpuscular Hemoglobin Concent 30.0 L Red Cell Distribution Width 16.2 H Platelet Count 196 Mean Platelet Volume 12.4 H Immature Granulocytes % 0.500 H Neutrophils % 74.0 Lymphocytes % 11.3 L Monocytes % 11.4 H Eosinophils % 2.4 Basophils % 0.4 Nucleated Red Blood Cells % 0.0 Immature Granulocytes # 0.090 H Neutrophils # 12.5 H Lymphocytes # 1.9 Monocytes # 1.9 H Eosinophils # 0.4 Basophils # 0.1 Nucleated Red Blood Cells # 0.0 Sodium Level 144 Potassium Level 4.4 Chloride Level 115 H Carbon Dioxide Level 20 L Anion Gap 9 Blood Urea Nitrogen 63 H Creatinine 1.66 H Est Glomerular Filtrat Rate mL/min Glucose Level 113 Calcium Level 10.7 H Medications Medication Current Medications Acetaminophen (Tylenol Tab) 650 mg Q4 PRN PO MILD PAIN(1-3)OR ELEVATED TEMP Last administered on 02/12/19 01:20; Admin Dose 650 MG; Start 02/06/19 at 00:00 Acetylcysteine (Mucomyst) 2 ml Q6H RESP THERAPY NEB Last administered on 02/20/19 01:52; Admin Dose 2 ML; Start 02/06/19 at 02:00 Apixaban (Eliquis) 2.5 mg BID PO Last administered on 02/19/19 20:14; Admin Dose 2.5 MG; Start 02/06/19 at 09:00 Atorvastatin Calcium (Lipitor) 20 mg QHS PO Last administered on 02/19/19 20:14; Admin Dose 20 MG; Start 02/06/19 at 21:00 Bupropion HCl (Wellbutrin Xl) 300 mg DAILY PO Last administered on 02/19/19 09:13; Admin Dose 300 MG; Start 02/06/19 at 09:00 Docusate Sodium (Colace) 100 mg QHS PO Last administered on 02/19/19 20:14; Admin Dose 100 MG; Start 02/06/19 at 21:00 Fluticasone/ Vilanterol (Breo Ellipta 200-25 Mcg Inh) 1 inh DAILY INH Last administered on 02/19/19 09:52; Admin Dose 1 INH; Start 02/06/19 at 09:00 Mirtazapine (Remeron) 15 mg HS PO Last administered on 02/19/19 20:15; Admin Dose 15 MG; Start 02/06/19 at 21:00 Pantoprazole (Protonix Tab) 40 mg AC BREAKFAST PO Last administered on 02/19/19 09:14; Admin Dose 40 MG; Start 02/06/19 at 07:20 IV Flush (NS 3 ml) 3 ml PER PROTOCOL IV Last administered on 02/06/19 00:04; Admin Dose 3 ML; Start 02/06/19 at 00:00 Ondansetron HCl (Zofran Inj) 4 mg Q6H PRN IV NAUSEA/VOMITING; Start 02/06/19 at 00:00 Magnesium Hydroxide (Milk Of Mag) 30 ml DAILY PRN PO .CONSTIPATION; Start 02/06/19 at 00:00 Sodium Biphosphate/ Sodium Phosphate (Fleet Enema) 133 ml DAILY PRN [place] .CONSTIPATION; Start 02/06/19 at 00:00 [facility] This patient sawyer... PRN PRN XX WOUND CARE; Start 02/06/19 at 08:00 Albuterol/ Ipratropium (Duoneb) 3 ml Q6H RESP THERAPY HHN Last administered on 02/20/19 01:51; Admin Dose 3 ML; Start 02/06/19 at 08:30 Metoprolol Tartrate (Lopressor) 25 mg BID PO Last administered on 02/19/19 21:34; Admin Dose 25 MG; Start 02/09/19 at 21:00 Doxycycline Hyclate (Vibramycin) 100 mg BID PO Last administered on 02/19/19 20:14; Admin Dose 100 MG; Start 02/12/19 at 21:00 Guaifenesin (Robitussin Liquid Cup) 200 mg Q4H PRN PO COUGH; Start 02/18/19 at 18:00 Amphotericin B (Fungizone) 1,000 ml Q24H IRR Last administered on 02/19/19 15:40; Admin Dose 1,000 ML; Start 02/18/19 at 20:00; Stop 02/22/19 at 20:01 Dextrose 1,000 ml @ 100 mls/hr Q10H IV Last administered on 02/20/19at 04:04; Admin Dose 100 MLS/HR; Start 02/19/19 at 18:00 Cefepime HCl 50 ml @ 100 mls/hr Q24H IVPB Last administered on 02/19/19at 20:14; Admin Dose 100 MLS/HR; Start 02/19/19 at 21:00 MIGUELITO VASQUEZ MD Feb 20, 2019 06:47
[2019-02-20] MEDS: PANTOPRAZOLE (EC) 40 MG TAB PO SCH (06:56)
[2019-02-20 08:22] VITALS: BP 119/56; PULSE 99; RESP 19
--- NOTE | 2019-02-20 08:30 | CONS ---
Consult Date/Type/Reason Admit Date/Time Feb 05, 2019 at 20:14 Initial Consult Date 02/18/19 Type of Consultation: urology Reason for Consultation Pyuria Requesting Provider: BREEZY FRIAS MD Date/Time of Note DATE: 02/20/19 TIME: 08:26 Subjective Patient is resting now but was confused last night. Objective Vitals Vital Signs Date Temp Pulse Resp B/P (MAP) Pulse Ox O2 O2 Flow FiO2 Time Delivery Rate 02/20/19 98.0 99 19 119/56 90 Nasal 08:22 (77) Cannula 02/20/19 2.0 01:52 02/19/19 21 01:25 Intake and Output 02/19/19 02/19/19 02/20/19 1515:00 23:00 07:00 IntakeIntake Total 1450 ml 1100 ml OutputOutput Total 300 ml 975 ml 1400 ml BalanceBalance -300 ml 475 ml -300 ml Exam Bladder irrigation with amphotericin. The return is clear. The urine culture showing yeast. Results/Medications Result Diagram: 02/20/19 0457 02/20/19 0457 Results 24 hrs Laboratory Tests Test 02/20/19 04:57 White Blood Count 16.9 H Red Blood Count 3.62 L Hemoglobin 9.7 L Hematocrit 32.3 L Mean Corpuscular Volume 89.2 Mean Corpuscular Hemoglobin 26.8 L Mean Corpuscular Hemoglobin Concent 30.0 L Red Cell Distribution Width 16.2 H Platelet Count 196 Mean Platelet Volume 12.4 H Immature Granulocytes % 0.500 H Neutrophils % 74.0 Lymphocytes % 11.3 L Monocytes % 11.4 H Eosinophils % 2.4 Basophils % 0.4 Nucleated Red Blood Cells % 0.0 Immature Granulocytes # 0.090 H Neutrophils # 12.5 H Lymphocytes # 1.9 Monocytes # 1.9 H Eosinophils # 0.4 Basophils # 0.1 Nucleated Red Blood Cells # 0.0 Sodium Level 144 Potassium Level 4.4 Chloride Level 115 H Carbon Dioxide Level 20 L Anion Gap 9 Blood Urea Nitrogen 63 H Creatinine 1.66 H Est Glomerular Filtrat Rate mL/min Glucose Level 113 Calcium Level 10.7 H Home Meds Active Scripts Ciprofloxacin Hcl* (Ciprofloxacin Hcl*) 250 Mg Tablet, 250 MG PO BID for 7 Days, #14 TAB Prov:BREEZY FRIAS MD 01/31/19 Guaifenesin (Guaifenesin) 600 Mg Tablet.sa, 600 MG PO BID for 30 Days, #60 Prov:BREEZY FRIAS MD 01/31/19 Acetylcysteine* (Mucomyst*) 4 Ml Soln, 2 ML NEB Q6H RESP THERAPY for 30 Days, #1 BOTTLE Prov:BREEZY FRIAS MD 01/31/19 Bupropion Hcl* (Bupropion XL*) 150 Mg Tab.er.24h, 300 MG PO DAILY for 30 Days, #30 Prov:BREEZY FRIAS MD 01/31/19 Reported Medications Fluticasone/Vilanterol (Breo Ellipta 200-25 Mcg INH) 1 Each Blst.w.dev, 1 PUFF INHALATION DAILY, #1 INHALER 01/09/19 Diltiazem Hcl (Diltiazem) 120 Mg Capsr, 120 MG PO QAM, #30 CAP 01/09/19 Pantoprazole* (Pantoprazole*) 40 Mg Tablet.dr, 40 MG PO AC BREAKFAST, TAB 01/09/19 Mirtazapine* (Mirtazapine*) 15 Mg Tablet, 15 MG PO HS, TAB 01/09/19 Metoprolol Tartrate* (Lopressor*) 50 Mg Tab, 50 MG PO BID, #60 TAB 01/09/19 Docusate Sodium* (Colace*) 100 Mg Capsule, 100 MG PO QHS, #30 CAP 01/09/19 Diazepam* (Diazepam*) 2 Mg Tablet, 2 MG PO QHS, TAB 01/09/19 Atorvastatin Calcium* (Atorvastatin Calcium*) 20 Mg Tablet, 20 MG PO QHS, #30 TAB 01/09/19 Acetaminophen* (Acetaminophen*) 325 Mg Tablet, 650 MG PO NEEDED PRN for PAIN AND OR ELEVATED TEMP, #30 TAB 01/09/19 Apixaban* (Eliquis*) 5 Mg Tablet, 5 MG PO BID, TAB 01/09/19 Medications Current Medications Acetaminophen (Tylenol Tab) 650 mg Q4 PRN PO MILD PAIN(1-3)OR ELEVATED TEMP Last administered on 02/12/19at 01:20; Admin Dose 650 MG; Start 02/06/19 at 00:00 Acetylcysteine (Mucomyst) 2 ml Q6H RESP THERAPY NEB Last administered on 02/20/19at 01:52; Admin Dose 2 ML; Start 02/06/19 at 02:00 Apixaban (Eliquis) 2.5 mg BID PO Last administered on 02/19/19 20:14; Admin Dose 2.5 MG; Start 02/06/19 at 09:00 Atorvastatin Calcium (Lipitor) 20 mg QHS PO Last administered on 02/19/19 20:14; Admin Dose 20 MG; Start 02/06/19 at 21:00 Bupropion HCl (Wellbutrin Xl) 300 mg DAILY PO Last administered on 02/19/19 09:13; Admin Dose 300 MG; Start 02/06/19 at 09:00 Docusate Sodium (Colace) 100 mg QHS PO Last administered on 02/19/19 20:14; Ad min Dose 100 MG; Start 02/06/19 at 21:00 Fluticasone/ Vilanterol (Breo Ellipta 200-25 Mcg Inh) 1 inh DAILY INH Last administered on 02/19/19 09:52; Admin Dose 1 INH; Start 02/06/19 at 09:00 Mirtazapine (Remeron) 15 mg HS PO Last administered on 02/19/19 20:15; Admin Dose 15 MG; Start 02/06/19 at 21:00 Pantoprazole (Protonix Tab) 40 mg AC BREAKFAST PO Last administered on 02/20/19 06:56; Admin Dose 40 MG; Start 02/06/19 at 07:20 IV Flush (NS 3 ml) 3 ml PER PROTOCOL IV Last administered on 02/06/19 00:04; Admin Dose 3 ML; Start 02/06/19 at 00:00 Ondansetron HCl (Zofran Inj) 4 mg Q6H PRN IV NAUSEA/VOMITING; Start 02/06/19 at 00:00 Magnesium Hydroxide (Milk Of Mag) 30 ml DAILY PRN PO .CONSTIPATION; Start 02/06/19 at 00:00 Sodium Biphosphate/ Sodium Phosphate (Fleet Enema) 133 ml DAILY PRN [place] .CONSTIPATION; Start 02/06/19 at 00:00 Miscellaneous Information (Pending [facility] Order For Wound Care) This patient sawyer... PRN PRN XX WOUND CARE; Start 02/06/19 at 08:00 Albuterol/ Ipratropium (Duoneb) 3 ml Q6H RESP THERAPY HHN Last administered on 02/20/19 01:51; Admin Dose 3 ML; Start 02/06/19 at 08:30 Metoprolol Tartrate (Lopressor) 25 mg BID PO Last administered on 02/19/19 21: 34; Admin Dose 25 MG; Start 02/09/19 at 21:00 Doxycycline Hyclate (Vibramycin) 100 mg BID PO Last administered on 02/19/19 20:14; Admin Dose 100 MG; Start 02/12/19 at 21:00 Guaifenesin (Robitussin Liquid Cup) 200 mg Q4H PRN PO COUGH; Start 02/18/19 at 18:00 Amphotericin B (Fungizone) 1,000 ml Q24H IRR Last administered on 02/19/19 15:40; Admin Dose 1,000 ML; Start 02/18/19 at 20:00; Stop 02/22/19 at 20:01 Dextrose 1,000 ml @ 100 mls/hr Q10H IV Last administered on 02/20/19 04:04; Admin Dose 100 MLS/HR; Start 02/19/19 at 18:00 Cefepime HCl 50 ml @ 100 mls/hr Q24H IVPB Last administered on 02/19/19 20:14; Admin Dose 100 MLS/HR; Start 02/19/19 at 21:00 Assessment/Plan Hospital Course (Demo Recall) 83-year-old male was admitted to the hospital because of progressive lethargy. He was unable to wake up to take his medications or eat. Work up in the emergency room shows elevated WBC, BUN/creatinine and abnormal urine suggestive of dehydration and urosepsis. The patient was treated was on the biotics yet he continued to have pyuria and is urine culture did show once Enriqueta glabrata and another time Enriqueta albicans with mixed gram-positive organisms The patient was confused last night. He is on bladder irrigation with amphotericin. The return is clear to slightly cloudy. The urine culture that was sent on 02/18 2019 showed yeast. Will await the final report of the urine culture. He still have leukocytosis. I doubt that the pyuria is the reason for his leukocytosis Continue the bladder irrigation. SARITHA OWEN MD Feb 20, 2019 08:30
[2019-02-20] MEDS: FLUTICASONE/VILANTEROL 200-25 INH DEVICE INH SCH (09:00)
[2019-02-20] MEDS: APIXABAN 5 MG TABLET PO SCH ×2 (10:28→20:45)
[2019-02-20] MEDS: METOPROLOL 25 MG TAB PO SCH ×2 (10:29→20:47)
[2019-02-20] MEDS: BUPROPION (XL) 150 MG TAB PO SCH (10:29)
[2019-02-20] MEDS: DOXYCYCLINE 100 MG TAB PO SCH ×2 (10:29→20:45)
[2019-02-20] MEDS: BALSAM PERU/CASTOR OIL 60 GM TUBE TOP SCH ×2 (10:29→20:47)
[2019-02-20] MEDS: AMPHOTERICIN B IRR SCH (13:47)
[2019-02-20 16:10] VITALS: BP 122/60; PULSE 78; RESP 20
--- NOTE | 2019-02-20 17:12 | PN ---
Date/Time of Note Date/Time of Note DATE: 02/20/19 TIME: 17:10 Assessment/Plan VTE Prophylaxis Risk score (from [facility])>0 risk: 6 SCD applied (from [facility]): Yes Pharmacological prophylaxis: apixaban Lines/Catheters IV Catheter Type (from [facility]): Peripheral IV Urinary Cath still in place: No Assessment/Plan Hospital Course Patient was admitted with altered mental status and acute dehydration and leukouria. His mental status and dehydration improved with IV fluids and cefepime which were stopped when urine culture grew vijay glabata but no bacteria. Repeat cath UA still shows marked leukouria but culture grew vijay albicans. ID consult recommended treatment for prostatitis with 1 month of doxycycline. Patient was able to feed himself but needs full assist in transfer and ambu lation even with PT treatment for a week. Was supposed to go to [facility] for continued therapy but patient developed leukocytosis and increased confusion just prior to discharge. Problems: (1) Leukocytosis Status: Acute Comment: persistent leukocytosis now with shaking chills and right arm redness and swelling. Repeat blood cultures since patient has history of bacteremia and presumed line sepsis. Will add Vanco to Cefepime for cellulitis / sepsis. (2) Pyuria Status: Acute Comment: Urine now growing yeast. Continue Amphotericin bladder washing . (3) Dehydration Status: Acute Comment: improving Na and BUN/ creatinine. Continue IV fluids. (4) Confusion Status: Acute Comment: fluctuating mental status may be due to sepsis. Treat with restraints if needed and / or haldol . Although any sedative will cause prolonged lethargy in this elderly patient. (5) Sacral decubitus ulcer Status: Chronic Qualifiers: Pressure injury stage: stage 2 Qualified Codes: L89.152 - Pressure ulcer of sacral region, stage 2 Result Diagram: 02/20/19 0457 02/20/19 0457 Results 24hrs Laboratory Tests Test 02/20/19 04:57 White Blood Count 16.9 H Red Blood Count 3.62 L Hemoglobin 9.7 L Hematocrit 32.3 L Mean Corpuscular Volume 89.2 Mean Corpuscular Hemoglobin 26.8 L Mean Corpuscular Hemoglobin Concent 30.0 L Red Cell Distribution Width 16.2 H Platelet Count 196 Mean Platelet Volume 12.4 H Immature Granulocytes % 0.500 H Neutrophils % 74.0 Lymphocytes % 11.3 L Monocytes % 11.4 H Eosinophils % 2.4 Basophils % 0.4 Nucleated Red Blood Cells % 0.0 Immature Granulocytes # 0.090 H Neutrophils # 12.5 H Lymphocytes # 1.9 Monocytes # 1.9 H Eosinophils # 0.4 Basophils # 0.1 Nucleated Red Blood Cells # 0.0 Sodium Level 144 Potassium Level 4.4 Chloride Level 115 H Carbon Dioxide Level 20 L Anion Gap 9 Blood Urea Nitrogen 63 H Creatinine 1.66 H Est Glomerular Filtrat Rate mL/min Glucose Level 113 Calcium Level 10.7 H Subjective 24 Hr Interval Summary Free Text/Dictation Patient has new onset right arm pain today , refusing PT due to pain. Exam/Review of Systems Exam Vitals Vital Signs Date Temp Pulse Resp B/P (MAP) Pulse Ox O2 O2 Flow FiO2 Time Delivery Rate 02/20/19 98.2 78 20 122/60 91 16:10 (80) 02/20/19 2.0 14:12 02/20/19 Nasal 14:11 Cannula 02/19/19 21 01:25 Intake and Output 02/19/19 02/19/19 02/20/19 1515:00 23:00 07:00 IntakeIntake Total 1450 ml 1100 ml OutputOutput Total 300 ml 975 ml 1400 ml BalanceBalance -300 ml 475 ml -300 ml Exam Patient having shaking chills in room Constitutional: alert Head: normocephalic, atraumatic ENMT: nl external ears & nose Respiratory: clear to auscultation Cardiovascular: regular rate and rhythm Gastrointestinal: soft Musculoskeletal: nl extremities to inspection Results Results 24hrs Laboratory Tests Test 02/20/19 04:57 White Blood Count 16.9 H Red Blood Count 3.62 L Hemoglobin 9.7 L Hematocrit 32.3 L Mean Corpuscular Volume 89.2 Mean Corpuscular Hemoglobin 26.8 L Mean Corpuscular Hemoglobin Concent 30.0 L Red Cell Distribution Width 16.2 H Platelet Count 196 Mean Platelet Volume 12.4 H Immature Granulocytes % 0.500 H Neutrophils % 74.0 Lymphocytes % 11.3 L Monocytes % 11.4 H Eosinophils % 2.4 Basophils % 0.4 Nucleated Red Blood Cells % 0.0 Immature Granulocytes # 0.090 H Neutrophils # 12.5 H Lymphocytes # 1.9 Monocytes # 1.9 H Eosinophils # 0.4 Basophils # 0.1 Nucleated Red Blood Cells # 0.0 Sodium Level 144 Potassium Level 4.4 Chloride Level 115 H Carbon Dioxide Level 20 L Anion Gap 9 Blood Urea Nitrogen 63 H Creatinine 1.66 H Est Glomerular Filtrat Rate mL/min Glucose Level 113 Calcium Level 10.7 H Medications Medication Current Medications Acetaminophen (Tylenol Tab) 650 mg Q4 PRN PO MILD PAIN(1-3)OR ELEVATED TEMP Last administered on 02/12/19 01:20; Admin Dose 650 MG; Start 02/06/19 at 00:00 Acetylcysteine (Mucomyst) 2 ml Q6H RESP THERAPY NEB Last administered on 02/20/19 14:02; Admin Dose 2 ML; Start 02/06/19 at 02:00 Apixaban (Eliquis) 2.5 mg BID PO Last administered on 02/20/19 10:28; Admin Dose 2.5 MG; Start 02/06/19 at 09:00 Atorvastatin Calcium (Lipitor) 20 mg QHS PO Last administered on 02/19/19 20:14; Admin Dose 20 MG; Start 02/06/19 at 21:00 Bupropion HCl (Wellbutrin Xl) 300 mg DAILY PO Last administered on 02/20/19 10:29; Admin Dose 300 MG; Start 02/06/19 at 09:00 Docusate Sodium (Colace) 100 mg QHS PO Last administered on 02/19/19 20:14; Admin Dose 100 MG; Start 02/06/19 at 21:00 Fluticasone/ Vilanterol (Breo Ellipta 200-25 Mcg Inh) 1 inh DAILY INH Last administered on 02/19/19 09:52; Admin Dose 1 INH; Start 02/06/19 at 09:00 Mirtazapine (Remeron) 15 mg HS PO Last administered on 02/19/19 20:15; Admin Dose 15 MG; Start 02/06/19 at 21:00 Pantoprazole (Protonix Tab) 40 mg AC BREAKFAST PO Last administered on 02/20/19 06:56; Admin Dose 40 MG; Start 02/06/19 at 07:20 IV Flush (NS 3 ml) 3 ml PER PROTOCOL IV Last administered on 02/06/19 00:04; Admin Dose 3 ML; Start 02/06/19 at 00:00 Ondansetron HCl (Zofran Inj) 4 mg Q6H PRN IV NAUSEA/VOMITING; Start 02/06/19 at 00:00 Magnesium Hydroxide (Milk Of Mag) 30 ml DAILY PRN PO .CONSTIPATION; Start 02/06/19 at 00:00 Sodium Biphosphate/ Sodium Phosphate (Fleet Enema) 133 ml DAILY PRN [place] .CONSTIPATION; Start 02/06/19 at 00:00 Miscellaneous Information (Pending [facility] Order For Wound Care) This patient h a... PRN PRN XX WOUND CARE; Start 02/06/19 at 08:00 Albuterol/ Ipratropium (Duoneb) 3 ml Q6H RESP THERAPY HHN Last administered on 02/20/19 14:01; Admin Dose 3 ML; Start 02/06/19 at 08:30 Metoprolol Tartrate (Lopressor) 25 mg BID PO Last administered on 02/20/19 10:29; Admin Dose 25 MG; Start 02/09/19 at 21:00 Doxycycline Hyclate (Vibramycin) 100 mg BID PO Last administered on 02/20/19 10:29; Admin Dose 100 MG; Start 02/12/19 at 21:00 Guaifenesin (Robitussin Liquid Cup) 200 mg Q4H PRN PO COUGH; Start 02/18/19 at 18:00 Amphotericin B (Fungizone) 1,000 ml Q24H IRR Last administered on 02/20/19 13:47; Admin Dose 1,000 ML; Start 02/18/19 at 20:00; Stop 02/22/19 at 20:01 Dextrose 1,000 ml @ 100 mls/hr Q10H IV Last administered on 02/20/19 04:04; Admin Dose 100 MLS/HR; Start 02/19/19 at 18:00 Cefepime HCl 50 ml @ 100 mls/hr Q24H IVPB Last administered on 02/19/19 20:14; Admin Dose 100 MLS/HR; Start 02/19/19 at 21:00 BREEZY FRIAS MD Feb 20, 2019 17:12
[2019-02-20] MEDS ORDERED: VANCOMYCIN 1 GM (PMX) 250 ML IVPB ONE (19:00)
[2019-02-20 20:19] VITALS: BP 117/51; PULSE 80; RESP 20
[2019-02-20] MEDS: CEFEPIME 1GM/50 ML (PMX) 50 ML IVPB SCH (20:45)
[2019-02-20] MEDS: DOCUSATE SODIUM 100 MG CAP PO SCH (20:45)
[2019-02-20] MEDS: ATORVASTATIN 20 MG TAB PO SCH (20:46)
[2019-02-20] MEDS: MIRTAZAPINE 15 MG TAB PO SCH (20:46)
[2019-02-21] MEDS: ALBUTEROL/IPRATROPIUM (NEB) 3 ML AMP HHN SCH ×4 (02:13→19:47)
[2019-02-21] MEDS: ACETYLCYSTEINE 20% 4 ML VIAL NEB SCH ×4 (02:13→19:47)
[2019-02-21 02:31] VITALS: BP 113/54; PULSE 76; RESP 18
[2019-02-21] MEDS: PANTOPRAZOLE (EC) 40 MG TAB PO SCH (06:19)
--- NOTE | 2019-02-21 07:06 | CONS ---
Assessment/Plan Assessment/Plan Hospital Course (Demo Recall) 1) lethargy this seems to wax and wane pt's caregiver that last time he was in the hospital he got more lethargic from the meds he was given I doubt infection is causing his lethargy at this time 02/18 - pt less lethargic this a.m. but has confusion 2) pyuria initial urine cx grew 50k c.glabrata and repeat shows <10k of c.alb I doubt either one is the cause of his pyuria agree to stopping of cefepime since he has neg cx for bacteria x2 I doubt he has an active UTI he may have some prostatitis and a trial of doxycycline to treat atypicals might be of benefit I will start doxycycline to treat possible prostatitis and if his pyuria does not resolve then I would recommend urology consult 02/13 - pt tolerating his doxycycline so far, continue for one month and re-check u/a, urine cx 1 week after he is done with his antibiotics 02/17 - due to elevated WBC will re-order u/a and urine cx 02/18 - pyuria persists urine cx has 5K colonies of likely enterococcus which is not significant continue doxycycline at present consider urology consult I will order urine for AFB cx 02/19 - urine cx from 02/17 only had 5k of enterococcus urine cx from 02/[address] Hancock noted pus in his urine when he urinated and believes pt retains small amout of pus in bladder due to small amout of residual urine left when he urinates pt has been placed on ampho B bladder irrigation, if repeat urine cx from yesterday remains neg can d/c the ampho B doubt pt would benefit from IV ampho B, if vijay is present the bladder irrigation should be sufficient continue with doxycycline CT shows no change in hyperdense mass to L lower kidney 02/20 - ur cx has >100k of yeast continue with ampho B irrigation (5 days as originally planned by Dr. Hancock) 3) COPD breathing is currently stable 02/17- CXR does not show raimundo pneumonia, his O2 sats have been stable will order procalcitonin, doubt he has pneumonia 02/18 - breathing is stable and pt appears comfortable procalcitonin is pending WBC is down a bit today CT chest is pending 02/19 - CT chest has smaller amount of infiltrates to lower lungs, doubt he has active pneumonia 02/20 - stable, procalcitonin is pending 02/21 - cefepime was started by Dr. 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 5) hx of DVT 6) CAD 7) HTN 8) hx of CVA 9) leukocytosis 02/17 - unexplained, no obvious source of infection CXR shows atelectasis/small pleural effusions and no change in O2 sats will order procalcitonin, u/a and urine cx 02/18 - urine cx only has 5k colonies of likely enterococcus which is not significant breathing is stable no diarrhea WBC a bit improved no additional antibiotics at this time CT chest/abd/pelv is pending 02/20 - RUE is swollen, will order RUE venous doppler continue with ampho B bladder irrigation and doxycycline await procalcitonin if elevated will start pneumonia treatment repeat urine cx has >100k yeast but doubt this is the source for his leukocytosis check cbc, cmp in a.m. pt has persistent hypercalcemia 02/21 - RUE venous doppler was neg and swelling is less doubt he has cellulitis and doxycycline has excellent staph coverage, to d/c vanco on cefepime for possible pneumonia, if procalcitonin on 02/18 comes back neg then will d/c cefepime pt to complete his ampho B bladder irrigation after dose on 02/22 Consultation Date/Type/Reason Admit Date/Time Feb 05, 2019 at 20:14 Initial Consult Date 02/12/19 Type of Consult ID Requesting Provider: BREEZY FRIAS MD Date/Time of Note DATE: 02/21/19 TIME: 07:00 24 HR Interval Summary Free Text/Dictation pt is non verbal spoke to nurse pt eating better during the day but then did not eat dinner at all no cough, V ileostomy has 400cc of output for the last 24 hours Exam/Review of Systems Exam Vitals Vital Signs Date Temp Pulse Resp B/P (MAP) Pulse Ox O2 O2 Flow FiO2 Time Delivery Rate 02/21/19 97.4 76 18 113/54 98 02:31 (73) 02/21/19 Nasal 2.0 02:13 Cannula 02/19/19 21 01:25 Intake and Output 02/20/19 02/20/19 02/21/19 1515:00 23:00 07:00 IntakeIntake Total 510 ml 300 ml 350 ml OutputOutput Total 200 ml 500 ml 1300 ml BalanceBalance 310 ml -200 ml -950 ml Constitutional: non-verbal Respiratory: clear to auscultation, other (decreased BS at bases) Cardiovascular: regular rate and rhythm Gastrointestinal: non-tender Extremities: other (RUE swelling is less, no increase in heat, minimal faint redness with discrete border noted) Results Result Diagram: 02/21/19 0452 02/21/19 0452 Results 24hrs Laboratory Tests Test 02/21/19 04:52 White Blood Count 14.3 H Red Blood Count 3.44 L Hemoglobin 9.5 L Hematocrit 30.8 L Mean Corpuscular Volume 89.5 Mean Corpuscular Hemoglobin 27.6 L Mean Corpuscular Hemoglobin Concent 30.8 L Red Cell Distribution Width 15.8 H Platelet Count 173 Mean Platelet Volume 11.9 H Immature Granulocytes % 0.600 H Neutrophils % 69.7 Lymphocytes % 12.9 L Monocytes % 13.0 H Eosinophils % 3.4 Basophils % 0.4 Nucleated Red Blood Cells % 0.0 Immature Granulocytes # 0.090 H Neutrophils # 9.9 H Lymphocytes # 1.8 Monocytes # 1.9 H Eosinophils # 0.5 Basophils # 0.1 Nucleated Red Blood Cells # 0.0 Sodium Level 144 Potassium Level 4.6 Chloride Level 113 H Carbon Dioxide Level 22 Anion Gap 9 Blood Urea Nitrogen 62 H Creatinine 1.53 H Est Glomerular Filtrat Rate mL/min Glucose Level 97 Calcium Level 10.5 H Total Bilirubin 0.0 L Direct Bilirubin 0.00 Indirect Bilirubin 0.0 Aspartate Amino Transf (AST/SGOT) 18 Alanine Aminotransferase (ALT/SGPT) 10 L Alkaline Phosphatase 80 Total Protein 7.1 Albumin 3.3 Globulin 3.80 H Albumin/Globulin Ratio 0.86 Medications Medication Current Medications Acetaminophen (Tylenol Tab) 650 mg Q4 PRN PO MILD PAIN(1-3)OR ELEVATED TEMP Last administered on 02/12/19at 01:20; Admin Dose 650 MG; Start 02/06/19 at 00:00 Acetylcysteine (Mucomyst) 2 ml Q6H RESP THERAPY NEB Last administered on 02/21/19at 02:13; Admin Dose 2 ML; Start 02/06/19 at 02:00 Apixaban (Eliquis) 2.5 mg BID PO Last administered on 02/20/19 20:45; Admin Dose 2.5 MG; Start 02/06/19 at 09:00 Atorvastatin Calcium (Lipitor) 20 mg QHS PO Last administered on 02/20/19 20:46; Admin Dose 20 MG; Start 02/06/19 at 21:00 Bupropion HCl (Wellbutrin Xl) 300 mg DAILY PO Last administered on 02/20/19 10:29; Admin Dose 300 MG; Start 02/06/19 at 09:00 Docusate Sodium (Colace) 100 mg QHS PO Last administered on 02/20/19 20:45; Admin Dose 100 MG; Start 02/06/19 at 21:00 Fluticasone/ Vilanterol (Breo Ellipta 200-25 Mcg Inh) 1 inh DAILY INH Last administered on 02/19/19 09:52; Admin Dose 1 INH; Start 02/06/19 at 09:00 Mirtazapine (Remeron) 15 mg HS PO Last administered on 02/20/19 20:46; Admin Dose 15 MG; Start 02/06/19 at 21:00 Pantoprazole (Protonix Tab) 40 mg AC BREAKFAST PO Last administered on 02/21/19at 06:19; Admin Dose 40 MG; Start 02/06/19 at 07:20 IV Flush (NS 3 ml) 3 ml PER PROTOCOL IV Last administered on 02/06/19at 00:04; Admin Dose 3 ML; Start 02/06/19 at 00:00 Ondansetron HCl (Zofran Inj) 4 mg Q6H PRN IV NAUSEA/VOMITING; Start 02/06/19 at 00:00 Magnesium Hydroxide (Milk Of Mag) 30 ml DAILY PRN PO .CONSTIPATION; Start 02/06/19 at 00:00 Sodium Biphosphate/ Sodium Phosphate (Fleet Enema) 133 ml DAILY PRN [place] .CONS TIPATION; Start 02/06/19 at 00:00 Miscellaneous Information (Pending [facility] Order For Wound Care) This patient sawyer... PRN PRN XX WOUND CARE; Start 02/06/19 at 08:00 Albuterol/ Ipratropium (Duoneb) 3 ml Q6H RESP THERAPY HHN Last administered on 02/21/19 02:13; Admin Dose 3 ML; Start 02/06/19 at 08:30 Metoprolol Tartrate (Lopressor) 25 mg BID PO Last administered on 02/20/19 20:47; Admin Dose 25 MG; Start 02/09/19 at 21:00 Doxycycline Hyclate (Vibramycin) 100 mg BID PO Last administered on 02/20/19 20:45; Admin Dose 100 MG; Start 02/12/19 at 21:00 Guaifenesin (Robitussin Liquid Cup) 200 mg Q4H PRN PO COUGH; Start 02/18/19 at 18:00 Amphotericin B (Fungizone) 1,000 ml Q24H IRR Last administered on 02/20/19 13:47; Admin Dose 1,000 ML; Start 02/18/19 at 20:00; Stop 02/22/19 at 20:01 Dextrose 1,000 ml @ 100 mls/hr Q10H IV Last administered on 02/20/19 04:04; Admin Dose 100 MLS/HR; Start 02/19/19 at 18:00 Cefepime HCl 50 ml @ 100 mls/hr Q24H IVPB Last administered on 02/20/19at 2 0:45; Admin Dose 100 MLS/HR; Start 02/19/19 at 21:00 MIGUELITO VASQUEZ MD Feb 21, 2019 07:06
[2019-02-21] MEDS: FLUTICASONE/VILANTEROL 200-25 INH DEVICE INH SCH (09:00)
[2019-02-21] MEDS: APIXABAN 5 MG TABLET PO SCH ×2 (09:55→21:43)
[2019-02-21] MEDS: DOXYCYCLINE 100 MG TAB PO SCH ×2 (09:55→21:46)
[2019-02-21] MEDS: BALSAM PERU/CASTOR OIL 60 GM TUBE TOP SCH (09:55)
[2019-02-21] MEDS: BUPROPION (XL) 150 MG TAB PO SCH (09:55)
[2019-02-21] MEDS: METOPROLOL 25 MG TAB PO SCH ×2 (09:58→21:42)
[2019-02-21] MEDS: DEXTROSE 5% 1,000 ML IV SCH ×2 (11:08→20:00)
--- NOTE | 2019-02-21 14:52 | PN ---
Date/Time of Note Date/Time of Note DATE: 02/21/19 TIME: 14:45 Assessment/Plan VTE [place]axis [place] [facility] [place]: 9 [place]CD [place] [facility] [place] Yes Pharmacological prophylaxis: apixaban Lines/Catheters IV Catheter Type (from [facility]): Peripheral IV Urinary Cath still in place: Yes Reason Cath still needed: pres ulcer contaminated by urine Assessment/Plan Hospital Course Patient was admitted with altered mental status and acute dehydration and leukouria. His mental status and dehydration improved with IV fluids and cefepime which were stopped when urine culture grew vijay glabata but no bacteria. Repeat cath UA still shows marked leukouria but culture grew vijay albicans. ID consult recommended treatment for prostatitis with 1 month of doxycycline. Patient was able to feed himself but needs full assist in transfer and ambulation even with PT treatment for a week. Was supposed to go to [facility] for continued therapy 2 days ago but patient started having leukocytosis and increased confusion. Problems: (1) Leukocytosis Status: Acute Comment: Sudden occurence on 02-16 suggestive of occult infections. Blood cultures pending . Check lactic acid since patient had shaking chills last night. Continue amphotericin bladder washing for possible invasive fungal cystitis. Continue cefepime for possible pneumonitis. Continue doxycycline for prostatitis and/or cellulitis. (2) Pyuria Status: Acute Comment: Continue amphotericin bladder washing for possible invasive fungal cystitis and doxycycline for prostatitis. (3) Dehydration Status: Acute Comment: Patient skipping meals when he has altered mental status. Continue IV fluids for now. (4) Sacral decubitus ulcer Status: Chronic Comment: Continue local wound care for small stage 2 sacral ulcers. Qualifiers: Pressure injury stage: stage 2 Qualified Codes: L89.152 - Pressure ulcer of sacral region, stage 2 (5) Confusion Status: Acute Comment: Worsened mental status since leukocytosis onset suggest possible systemic sepsis. (6) Anxiety and depression Status: Chronic Comment: Patient has low motivation and refusing PT again. Will resume lexapro. Result Diagram: 02/21/19 0452 02/21/19 0452 Results 24hrs Laboratory Tests Test 02/21/19 04:52 White Blood Count 14.3 H Red Blood Count 3.44 L Hemoglobin 9.5 L Hematocrit 30.8 L Mean Corpuscular Volume 89.5 Mean Corpuscular Hemoglobin 27.6 L Mean Corpuscular Hemoglobin Concent 30.8 L Red Cell Distribution Width 15.8 H Platelet Count 173 Mean Platelet Volume 11.9 H Immature Granulocytes % 0.600 H Neutrophils % 69.7 Lymphocytes % 12.9 L Monocytes % 13.0 H Eosinophils % 3.4 Basophils % 0.4 Nucleated Red Blood Cells % 0.0 Immature Granulocytes # 0.090 H Neutrophils # 9.9 H Lymphocytes # 1.8 Monocytes # 1.9 H Eosinophils # 0.5 Basophils # 0.1 Nucleated Red Blood Cells # 0.0 Sodium Level 144 Potassium Level 4.6 Chloride Level 113 H Carbon Dioxide Level 22 Anion Gap 9 Blood Urea Nitrogen 62 H Creatinine 1.53 H Est Glomerular Filtrat Rate mL/min Glucose Level 97 Calcium Level 10.5 H Total Bilirubin 0.0 L Direct Bilirubin 0.00 Indirect Bilirubin 0.0 Aspartate Amino Transf (AST/SGOT) 18 Alanine Aminotransferase (ALT/SGPT) 10 L Alkaline Phosphatase 80 Total Protein 7.1 Albumin 3.3 Globulin 3.80 H Albumin/Globulin Ratio 0.86 Subjective 24 Hr Interval Summary Free Text/Dictation Patient awake and oriented to name. Exam/Review of Systems Exam Vitals Vital Signs Date Temp Pulse Resp B/P (MAP) Pulse Ox O2 O2 Flow FiO2 Time Delivery Rate 02/21/19 85 20 97 Nasal 2.0 14:38 Cannula 02/21/19 97.4 113/54 02:31 (73) 02/19/19 21 01:25 Intake and Output 02/20/19 02/20/19 02/21/19 1414:59 22:59 06:59 IntakeIntake Total 510 ml 300 ml 350 ml OutputOutput Total 200 ml 500 ml 1300 ml BalanceBalance 310 ml -200 ml -950 ml Exam Patient declined physical therapy today, does not want to due to weakness. Head: normocephalic, atraumatic Eyes: nl conjunctiva ENMT: nl external ears & nose Respiratory: clear to auscultation Cardiovascular: regular rate and rhythm Gastrointestinal: soft, other (bilateral ostomies) Musculoskeletal: nl extremities to inspection, other (Right elbow redness and warmth improved but still has dependency edema.) Results Results 24hrs Laboratory Tests Test 02/21/19 04:52 White Blood Count 14.3 H Red Blood Count 3.44 L Hemoglobin 9.5 L Hematocrit 30.8 L Mean Corpuscular Volume 89.5 Mean Corpuscular Hemoglobin 27.6 L Mean Corpuscular Hemoglobin Concent 30.8 L Red Cell Distribution Width 15.8 H Platelet Count 173 Mean Platelet Volume 11.9 H Immature Granulocytes % 0.600 H Neutrophils % 69.7 Lymphocytes % 12.9 L Monocytes % 13.0 H Eosinophils % 3.4 Basophils % 0.4 Nucleated Red Blood Cells % 0.0 Immature Granulocytes # 0.090 H Neutrophils # 9.9 H Lymphocytes # 1.8 Monocytes # 1.9 H Eosinophils # 0.5 Basophils # 0.1 Nucleated Red Blood Cells # 0.0 Sodium Level 144 Potassium Level 4.6 Chloride Level 113 H Carbon Dioxide Level 22 Anion Gap 9 Blood Urea Nitrogen 62 H Creatinine 1.53 H Est Glomerular Filtrat Rate mL/min Glucose Level 97 Calcium Level 10.5 H Total Bilirubin 0.0 L Direct Bilirubin 0.00 Indirect Bilirubin 0.0 Aspartate Amino Transf (AST/SGOT) 18 Alanine Aminotransferase (ALT/SGPT) 10 L Alkaline Phosphatase 80 Total Protein 7.1 Albumin 3.3 Globulin 3.80 H Albumin/Globulin Ratio 0.86 Medications Medication Current Medications Acetaminophen (Tylenol Tab) 650 mg Q4 PRN PO MILD PAIN(1-3)OR ELEVATED TEMP Last administered on 02/12/19 01:20; Admin Dose 650 MG; Start 02/06/19 at 00:00 Acetylcysteine (Mucomyst) 2 ml Q6H RESP THERAPY NEB Last administered on 02/21/19 02:13; Admin Dose 2 ML; Start 02/06/19 at 02:00 Apixaban (Eliquis) 2.5 mg BID PO Last administered on 02/21/19 09:55; Admin Dose 2.5 MG; Start 02/06/19 at 09:00 Atorvastatin Calcium (Lipitor) 20 mg QHS PO Last administered on 02/20/19 20:46; Admin Dose 20 MG; Start 02/06/19 at 21:00 Bupropion HCl (Wellbutrin Xl) 300 mg DAILY PO Last administered on 02/21/19 09:55; Admin Dose 300 MG; Start 02/06/19 at 09:00 Docusate Sodium (Colace) 100 mg QHS PO Last administered on 02/20/19 20:45; Admin Dose 100 MG; Start 02/06/19 at 21:00 Fluticasone/ Vilanterol (Breo Ellipta 200-25 Mcg Inh) 1 inh DAILY INH Last administered on 02/19/19 09:52; Admin Dose 1 INH; Start 02/06/19 at 09:00 Mirtazapine (Remeron) 15 mg HS PO Last administered on 02/20/19 20:46; Admin Dose 15 MG; Start 02/06/19 at 21:00 Pantoprazole (Protonix Tab) 40 mg AC BREAKFAST PO Last administered on 02/21/19 06:19; Admin Dose 40 MG; Start 02/06/19 at 07:20 IV Flush (NS 3 ml) 3 ml PER PROTOCOL IV Last administered on 02/06/19 00:04; Admin Dose 3 ML; Start 02/06/19 at 00:00 Ondansetron HCl (Zofran Inj) 4 mg Q6H PRN IV NAUSEA/VOMITING; Start 02/06/19 at 00:00 Magnesium Hydroxide (Milk Of Mag) 30 ml DAILY PRN PO .CONSTIPATION; Start 02/06/19 at 00:00 Sodium Biphosphate/ Sodium Phosphate (Fleet Enema) 133 ml DAILY PRN [place] .CONSTIPATION; Start 02/06/19 at 00:00 Miscellaneous Information (Pending [facility] Order For Wound Care) This patient sawyer... PRN PRN XX WOUND CARE; Start 02/06/19 at 08:00 Albuterol/ Ipratropium (Duoneb) 3 ml Q6H RESP THERAPY HHN Last administered on 02/21/19 14:37; Admin Dose 3 ML; Start 02/06/19 at 08:30 Metoprolol Tartrate (Lopressor) 25 mg BID PO Last administered on 02/21/19 09:58; Admin Dose 25 MG; Start 02/09/19 at 21:00 Doxycycline Hyclate (Vibramycin) 100 mg BID PO Last administered on 02/21/19 09:55; Admin Dose 100 MG; Start 02/12/19 at 21:00 Guaifenesin (Robitussin Liquid Cup) 200 mg Q4H PRN PO COUGH; Start 02/18/19 at 18:00 Amphotericin B (Fungizone) 1,000 ml Q24H IRR Last administered on 02/20/19at 13:47; Admin Dose 1,000 ML; Start 02/18/19 at 20:00; Stop 02/22/19 at 20:01 Dextrose 1,000 ml @ 100 mls/hr Q10H IV Last administered on 02/21/19at 11:08; Admin Dose 100 MLS/HR; Start 02/19/19 at 18:00 Cefepime HCl 50 ml @ 100 mls/hr Q24H IVPB Last administered on 02/20/19at 20:45; Admin Dose 100 MLS/HR; Start 02/19/19 at 21:00 BREEZY FRIAS MD Feb 21, 2019 14:52
[2019-02-21 17:05] VITALS: BP 129/81; PULSE 79; RESP 18
[2019-02-21 19:15] VITALS: BP 111/57; PULSE 83; RESP 18
--- NOTE | 2019-02-21 20:01 | CONS ---
Consult Date/Type/Reason Admit Date/Time Feb 05, 2019 at 20:14 Initial Consult Date 02/18/19 Type of Consultation: urology Reason for Consultation Pyuria and yeast urinary tract infection Requesting Provider: BREEZY FRIAS MD Date/Time of Note DATE: 02/21/19 TIME: 19:58 Subjective The patient is sitting in his bed having his dinner. His and his son are at his bedside. He is not confused as he was before Objective Vitals Vital Signs Date Temp Pulse Resp B/P (MAP) Pulse Ox O2 O2 Flow FiO2 Time Delivery Rate 02/21/19 98.3 79 18 129/81 99 Nasal 17:05 (97) Cannula 02/21/19 2.0 14:38 02/19/19 21 01:25 Intake and Output 02/20/19 02/20/19 02/21/19 1515:00 23:00 07:00 IntakeIntake Total 510 ml 300 ml 350 ml OutputOutput Total 200 ml 500 ml 1300 ml BalanceBalance 310 ml -200 ml -950 ml Exam Lazaro catheter is draining well and the irrigation with amphotericin still on and the return is clear. Results/Medications Result Diagram: 02/21/19 0452 02/21/19 0452 Results 24 hrs Laboratory Tests Test 02/21/19 04:52 White Blood Count 14.3 H Red Blood Count 3.44 L Hemoglobin 9.5 L Hematocrit 30.8 L Mean Corpuscular Volume 89.5 Mean Corpuscular Hemoglobin 27.6 L Mean Corpuscular Hemoglobin Concent 30.8 L Red Cell Distribution Width 15.8 H Platelet Count 173 Mean Platelet Volume 11.9 H Immature Granulocytes % 0.600 H Neutrophils % 69.7 Lymphocytes % 12.9 L Monocytes % 13.0 H Eosinophils % 3.4 Basophils % 0.4 Nucleated Red Blood Cells % 0.0 Immature Granulocytes # 0.090 H Neutrophils # 9.9 H Lymphocytes # 1.8 Monocytes # 1.9 H Eosinophils # 0.5 Basophils # 0.1 Nucleated Red Blood Cells # 0.0 Sodium Level 144 Potassium Level 4.6 Chloride Level 113 H Carbon Dioxide Level 22 Anion Gap 9 Blood Urea Nitrogen 62 H Creatinine 1.53 H Est Glomerular Filtrat Rate mL/min Glucose Level 97 Calcium Level 10.5 H Total Bilirubin 0.0 L Direct Bilirubin 0.00 Indirect Bilirubin 0.0 Aspartate Amino Transf (AST/SGOT) 18 Alanine Aminotransferase (ALT/SGPT) 10 L Alkaline Phosphatase 80 Total Protein 7.1 Albumin 3.3 Globulin 3.80 H Albumin/Globulin Ratio 0.86 Home Meds Active Scripts Ciprofloxacin Hcl* (Ciprofloxacin Hcl*) 250 Mg Tablet, 250 MG PO BID for 7 Days, #14 TAB Prov:BREEZY FRIAS MD 01/31/19 Guaifenesin (Guaifenesin) 600 Mg Tablet.sa, 600 MG PO BID for 30 Days, #60 Prov:BREEZY FRIAS MD 01/31/19 Acetylcysteine* (Mucomyst*) 4 Ml Soln, 2 ML NEB Q6H RESP THERAPY for 30 Days, #1 BOTTLE Prov:BREEZY FRIAS MD 01/31/19 Bupropion Hcl* (Bupropion XL*) 150 Mg Tab.er.24h, 300 MG PO DAILY for 30 Days, #30 Prov:BREEZY FRIAS MD 01/31/19 Reported Medications Fluticasone/Vilanterol (Breo Ellipta 200-25 Mcg INH) 1 Each Blst.w.dev, 1 PUFF INHALATION DAILY, #1 INHALER 01/09/19 Diltiazem Hcl (Diltiazem) 120 Mg Capsr, 120 MG PO QAM, #30 CAP 01/09/19 Pantoprazole* (Pantoprazole*) 40 Mg Tablet.dr, 40 MG PO AC BREAKFAST, TAB 01/09/19 Mirtazapine* (Mirtazapine*) 15 Mg Tablet, 15 MG PO HS, TAB 01/09/19 Metoprolol Tartrate* (Lopressor*) 50 Mg Tab, 50 MG PO BID, #60 TAB 01/09/19 Docusate Sodium* (Colace*) 100 Mg Capsule, 100 MG PO QHS, #30 CAP 01/09/19 Diazepam* (Diazepam*) 2 Mg Tablet, 2 MG PO QHS, TAB 01/09/19 Atorvastatin Calcium* (Atorvastatin Calcium*) 20 Mg Tablet, 20 MG PO QHS, #30 TAB 01/09/19 Acetaminophen* (Acetaminophen*) 325 Mg Tablet, 650 MG PO NEEDED PRN for PAIN AND OR ELEVATED TEMP, #30 TAB 01/09/19 Apixaban* (Eliquis*) 5 Mg Tablet, 5 MG PO BID, TAB 01/09/19 Medications Current Medications Acetaminophen (Tylenol Tab) 650 mg Q4 PRN PO MILD PAIN(1-3)OR ELEVATED TEMP Last administered on 02/12/19 01:20; Admin Dose 650 MG; Start 02/06/19 at 00:00 Acetylcysteine (Mucomyst) 2 ml Q6H RESP THERAPY NEB Last administered on 02/21/19 14:48; Admin Dose 2 ML; Start 02/06/19 at 02:00 Apixaban (Eliquis) 2.5 mg BID PO Last administered on 02/21/19 09:55; Admin Dose 2.5 MG; Start 02/06/19 at 09:00 Atorvastatin Calcium (Lipitor) 20 mg QHS PO Last administered on 02/20/19 20:46; Admin Dose 20 MG; Start 02/06/19 at 21:00 Bupropion HCl (Wellbutrin Xl) 300 mg DAILY PO Last administered on 02/21/19 09:55; Admin Dose 300 MG; Start 02/06/19 at 09:00 Docusate Sodium (Colace) 100 mg QHS PO Last administered on 02/20/19 20:45; Admin Dose 100 MG; Start 02/06/19 at 21:00 Fluticasone/ Vilanterol (Breo Ellipta 200-25 Mcg Inh) 1 inh DAILY INH Last administered on 02/19/19 09:52; Admin Dose 1 INH; Start 02/06/19 at 09:00 Mirtazapine (Remeron) 15 mg HS PO Last administered on 02/20/19 20:46; Admin Dose 15 MG; Start 02/06/19 at 21:00 Pantoprazole (Protonix Tab) 40 mg AC BREAKFAST PO Last administered on 02/21/19 06:19; Admin Dose 40 MG; Start 02/06/19 at 07:20 IV Flush (NS 3 ml) 3 ml PER PROTOCOL IV Last administered on 02/06/19 00:04; Admin Dose 3 ML; Start 02/06/19 at 00:00 Ondansetron HCl (Zofran Inj) 4 mg Q6H PRN IV NAUSEA/VOMITING; Start 02/06/19 at 00:00 Magnesium Hydroxide (Milk Of Mag) 30 ml DAILY PRN PO .CONSTIPATION; Start 02/06/19 at 00:00 Sodium Biphosphate/ Sodium Phosphate (Fleet Enema) 133 ml DAILY PRN [place] .CONSTIPATION; Start 02/06/19 at 00:00 Miscellaneous Information (Pending [facility] Order For Wound Care) This patient sawyer... PRN PRN XX WOUND CARE; Start 02/06/19 at 08:00 Albuterol/ Ipratropium (Duoneb) 3 ml Q6H RESP THERAPY HHN Last administered on 02/21/19at 14:37; Admin Dose 3 ML; Start 02/06/19 at 08:30 Metoprolol Tartrate (Lopressor) 25 mg BID PO Last administered on 02/21/19 09:58; Admin Dose 25 MG; Start 02/09/19 at 21:00 Doxycycline Hyclate (Vibramycin) 100 mg BID PO Last administered on 02/21/19at 09:55; Admin Dose 100 MG; Start 02/12/19 at 21:00 Guaifenesin (Robitussin Liquid Cup) 200 mg Q4H PRN PO COUGH; Start 02/18/19 at 18:00 Amphotericin B (Fungizone) 1,000 ml Q24H IRR Last administered on 02/20/19at 13:47; Admin Dose 1,000 ML; Start 02/18/19 at 20:00; Stop 02/22/19 at 20:01 Dextrose 1,000 ml @ 100 mls/hr Q10H IV Last administered on 02/21/19 11:08; A dmin Dose 100 MLS/HR; Start 02/19/19 at 18:00 Cefepime HCl 50 ml @ 100 mls/hr Q24H IVPB Last administered on 02/20/19at 20:45; Admin Dose 100 MLS/HR; Start 02/19/19 at 21:00 Escitalopram Oxalate (Lexapro) 10 mg DAILY PO ; Start 02/22/19 at 09:00 Assessment/Plan Hospital Course (Demo Recall) 83-year-old male was admitted to the hospital because of progressive lethargy. He was unable to wake up to take his medications or eat. Work up in the emergency room shows elevated WBC, BUN/creatinine and abnormal urine suggestive of dehydration and urosepsis. The patient was treated was on the biotics yet he continued to have pyuria and is urine culture did show once Enriqueta glabrata and another time Enriqueta albicans with mixed gram-positive organisms The patient is less confused now. He is on bladder irrigation with amphotericin. The return is clear to slightly cloudy. The urine culture that was sent on 02/18 2019 showed yeast. He still have leukocytosis but improving. I doubt that the pyuria is the reason for his leukocytosis Continue the bladder irrigation. SARITHA OWEN MD Feb 21, 2019 20:00
[2019-02-21] MEDS: AMPHOTERICIN B IRR SCH (20:12)
[2019-02-21] MEDS: CEFEPIME 1GM/50 ML (PMX) 50 ML IVPB SCH (21:00)
[2019-02-21] MEDS: ATORVASTATIN 20 MG TAB PO SCH (21:42)
[2019-02-21] MEDS: MIRTAZAPINE 15 MG TAB PO SCH (21:42)
[2019-02-21] MEDS: DOCUSATE SODIUM 100 MG CAP PO SCH (21:46)
[2019-02-22] MEDS: BALSAM PERU/CASTOR OIL 60 GM TUBE TOP SCH ×3 (00:24→21:01)
[2019-02-22] MEDS: ALBUTEROL/IPRATROPIUM (NEB) 3 ML AMP HHN SCH ×4 (01:07→19:35)
[2019-02-22] MEDS: ACETYLCYSTEINE 20% 4 ML VIAL NEB SCH ×4 (01:07→19:36)
[2019-02-22] MEDS: ACETAMINOPHEN 325 MG TAB PO PRN ×2 (01:46→20:55)
[2019-02-22 02:42] VITALS: BP 110/57; PULSE 80; RESP 18
[2019-02-22] MEDS: DEXTROSE 5% 1,000 ML IV SCH ×2 (06:00→14:56)
[2019-02-22] MEDS: PANTOPRAZOLE (EC) 40 MG TAB PO SCH (06:54)
[2019-02-22 08:14] VITALS: BP 121/59; PULSE 76; RESP 18
[2019-02-22] MEDS: ESCITALOPRAM 10 MG TAB PO SCH (09:53)
[2019-02-22] MEDS: DOXYCYCLINE 100 MG TAB PO SCH ×2 (09:53→20:45)
[2019-02-22] MEDS: APIXABAN 5 MG TABLET PO SCH ×2 (09:53→20:45)
[2019-02-22] MEDS: METOPROLOL 25 MG TAB PO SCH ×2 (09:54→20:54)
[2019-02-22] MEDS: FLUTICASONE/VILANTEROL 200-25 INH DEVICE INH SCH (09:55)
[2019-02-22] MEDS: BUPROPION (XL) 150 MG TAB PO SCH (10:29)
--- NOTE | 2019-02-22 12:43 | CONS ---
Consult Date/Type/Reason Admit Date/Time Feb 05, 2019 at 20:14 Initial Consult Date 02/18/19 Type of Consultation: urology Reason for Consultation Pyuria. Requesting Provider: BREEZY FRIAS MD Date/Time of Note DATE: 02/22/19 TIME: 12:23 Subjective Patient presents resting. He appears to be comfortable now. According to the nurses notes he had some problems at night that they had to call his to calm him down. Objective Vitals Vital Signs Date Temp Pulse Resp B/P (MAP) Pulse Ox O2 O2 Flow FiO2 Time Delivery Rate 02/22/19 76 18 97 Nasal 2.0 09:02 Cannula 02/22/19 98.3 121/59 08:14 (79) 02/19/19 21 01:25 Intake and Output 02/21/19 02/21/19 02/22/19 1414:59 22:59 06:59 IntakeIntake Total 550 ml 1200 ml 100 ml OutputOutput Total 800 ml 1350 ml BalanceBalance 550 ml 400 ml -1250 ml Exam Lazaro catheter is draining clear. The bladder irrigation with the amphotericin still going. The report of the urine culture came back as Enriqueta glabrata. His CBC continues to show leukocytosis. Results/Medications Result Diagram: 02/22/19 0502 02/22/19 0502 Results 24 hrs Laboratory Tests Test 02/22/19 05:02 White Blood Count 16.0 H Red Blood Count 3.82 L Hemoglobin 10.5 L Hematocrit 33.7 L Mean Corpuscular Volume 88.2 Mean Corpuscular Hemoglobin 27.5 L Mean Corpuscular Hemoglobin Concent 31.2 L Red Cell Distribution Width 15.9 H Platelet Count 215 # Mean Platelet Volume 12.1 H Immature Granulocytes % 0.600 H Neutrophils % 71.3 Lymphocytes % 12.1 L Monocytes % 12.0 H Eosinophils % 3.4 Basophils % 0.6 Nucleated Red Blood Cells % 0.0 Immature Granulocytes # 0.100 H Neutrophils # 11.4 H Lymphocytes # 1.9 Monocytes # 1.9 H Eosinophils # 0.6 H Basophils # 0.1 Nucleated Red Blood Cells # 0.0 Sodium Level 143 Potassium Level 4.8 Chloride Level 110 Carbon Dioxide Level 22 Anion Gap 11 Blood Urea Nitrogen 58 H Creatinine 1.65 H Est Glomerular Filtrat Rate mL/min Glucose Level 101 Calcium Level 10.9 H Home Meds Active Scripts Ciprofloxacin Hcl* (Ciprofloxacin Hcl*) 250 Mg Tablet, 250 MG PO BID for 7 Days, #14 TAB Prov:BREEZY FRIAS MD 01/31/19 Guaifenesin (Guaifenesin) 600 Mg Tablet.sa, 600 MG PO BID for 30 Days, #60 Prov:BREEZY FRIAS MD 01/31/19 Acetylcysteine* (Mucomyst*) 4 Ml Soln, 2 ML NEB Q6H RESP THERAPY for 30 Days, #1 BOTTLE Prov:BREEZY FRIAS MD 01/31/19 Bupropion Hcl* (Bupropion XL*) 150 Mg Tab.er.24h, 300 MG PO DAILY for 30 Days, #30 Prov:BREEZY FRIAS MD 01/31/19 Reported Medications Fluticasone/Vilanterol (Breo Ellipta 200-25 Mcg INH) 1 Each Blst.w.dev, 1 PUFF INHALATION DAILY, #1 INHALER 01/09/19 Diltiazem Hcl (Diltiazem) 120 Mg Capsr, 120 MG PO QAM, #30 CAP 01/09/19 Pantoprazole* (Pantoprazole*) 40 Mg Tablet.dr, 40 MG PO AC BREAKFAST, TAB 01/09/19 Mirtazapine* (Mirtazapine*) 15 Mg Tablet, 15 MG PO HS, TAB 01/09/19 Metoprolol Tartrate* (Lopressor*) 50 Mg Tab, 50 MG PO BID, #60 TAB 01/09/19 Docusate Sodium* (Colace*) 100 Mg Capsule, 100 MG PO QHS, #30 CAP 01/09/19 Diazepam* (Diazepam*) 2 Mg Tablet, 2 MG PO QHS, TAB 01/09/19 Atorvastatin Calcium* (Atorvastatin Calcium*) 20 Mg Tablet, 20 MG PO QHS, #30 TAB 01/09/19 Acetaminophen* (Acetaminophen*) 325 Mg Tablet, 650 MG PO NEEDED PRN for PAIN AND OR ELEVATED TEMP, #30 TAB 01/09/19 Apixaban* (Eliquis*) 5 Mg Tablet, 5 MG PO BID, TAB 01/09/19 Medications Current Medications Acetaminophen (Tylenol Tab) 650 mg Q4 PRN PO MILD PAIN(1-3)OR ELEVATED TEMP Last administered on 02/22/19at 01:46; Admin Dose 650 MG; Start 02/06/19 at 00:00 Acetylcysteine (Mucomyst) 2 ml Q6H RESP THERAPY NEB Last administered on 02/22/19 08:50; Admin Dose 2 ML; Start 02/06/19 at 02:00 Apixaban (Eliquis) 2.5 mg BID PO Last administered on 02/22/19 09:53; Admin Dose 2.5 MG; Start 02/06/19 at 09:00 Atorvastatin Calcium (Lipitor) 20 mg QHS PO Last administered on 02/21/19 21:42; Admin Dose 20 MG; Start 02/06/19 at 21:00 Bupropion HCl (Wellbutrin Xl) 300 mg DAILY PO Last administered on 02/22/19 10:29; Admin Dose 300 MG; Start 02/06/19 at 09:00 Docusate Sodium (Colace) 100 mg QHS PO Last administered on 02/21/19 21:46; Admin Dose 100 MG; Start 02/06/19 at 21:00 Fluticasone/ Vilanterol (Breo Ellipta 200-25 Mcg Inh) 1 inh DAILY INH Last administered on 02/22/19 09:55; Admin Dose 1 INH; Start 02/06/19 at 09:00 Mirtazapine (Remeron) 15 mg HS PO Last administered on 02/21/19 21:42; Admin Dose 15 MG; Start 02/06/19 at 21:00 Pantoprazole (Protonix Tab) 40 mg AC BREAKFAST PO Last administered on 02/22/19 06:54; Admin Dose 40 MG; Start 02/06/19 at 07:20 IV Flush (NS 3 ml) 3 ml PER PROTOCOL IV Last administered on 02/06/19 00:04; Admin Dose 3 ML; Start 02/06/19 at 00:00 Ondansetron HCl (Zofran Inj) 4 mg Q6H PRN IV NAUSEA/VOMITING; Start 02/06/19 at 00:00 Magnesium Hydroxide (Milk Of Mag) 30 ml DAILY PRN PO .CONSTIPATION; Start 02/06/19 at 00:00 Sodium Biphosphate/ Sodium Phosphate (Fleet Enema) 133 ml DAILY PRN [place] .CONSTIPATION; Start 02/06/19 at 00:00 Miscellaneous Information (Pending [facility] Order For Wound Care) This patient sawyer... PRN PRN XX WOUND CARE; Start 02/06/19 at 08:00 Albuterol/ Ipratropium (Duoneb) 3 ml Q6H RESP THERAPY HHN Last administered on 02/22/19 08:00; Admin Dose 3 ML; Start 02/06/19 at 08:30 Metoprolol Tartrate (Lopressor) 25 mg BID PO Last administered on 02/22/19 09:54; Admin Dose 25 MG; Start 02/09/19 at 21:00 Doxycycline Hyclate (Vibramycin) 100 mg BID PO Last administered on 02/22/19 09:53; Admin Dose 100 MG; Start 02/12/19 at 21:00 Guaifenesin (Robitussin Liquid Cup) 200 mg Q4H PRN PO COUGH; Start 02/18/19 at 18:00 Amphotericin B (Fungizone) 1,000 ml Q24H IRR Last administered on 02/21/19 20:12; Admin Dose 1,000 ML; Start 02/18/19 at 20:00; Stop 02/22/19 at 20:01 Dextrose 1,000 ml @ 100 mls/hr Q10H IV Last administered on 02/21/19 11:08; Admin Dose 100 MLS/HR; Start 02/19/19 at 18:00 Cefepime HCl 50 ml @ 100 mls/hr Q24H IVPB Last administered on 02/20/19 20:45; Admin Dose 100 MLS/HR; Start 02/19/19 at 21:00 Escitalopram Oxalate (Lexapro) 10 mg DAILY PO Last administered on 02/22/19 09:53; Admin Dose 10 MG; Start 02/22/19 at 09:00 Assessment/Plan Hospital Course (Demo Recall) 83-year-old male was admitted to the hospital because of progressive lethargy. He was unable to wake up to take his medications or eat. Work up in the emergency room shows elevated WBC, BUN/creatinine and abnormal urine suggestive of dehydration and urosepsis. The patient was treated was on the antibiotics yet he continued to have pyuria and is urine culture did show once Enriqueta glabrata and another time Enriqueta albicans with mixed gram-positive organisms. Repeat urine culture on 02/18/2019 grew Enriqueta glabrata. Patient still on amphotericin bladder irrigation. I would leave it to Dr. Taylor if he thinks oral antifungal medication (voriconazole/fluconazole)may be helpful. SARITHA OWEN MD Feb 22, 2019 12:33
[2019-02-22 15:23] VITALS: BP 114/59; PULSE 73; RESP 18
--- NOTE | 2019-02-22 15:45 | PN ---
Date/Time of Note Date/Time of Note DATE: 02/22/19 TIME: 15:44 Assessment/Plan VTE Prophylaxis Risk score (from [facility])>0 risk: 9 SCD applied (from [facility]): Yes Pharmacological prophylaxis: apixaban Lines/Catheters IV Catheter Type (from [facility]): Peripheral IV Urinary Cath still in place: Yes Reason Cath still needed: pres ulcer contaminated by urine Assessment/Plan Hospital Course Patient was admitted with altered mental status and acute dehydration and leukouria. His mental status and dehydration improved with IV fluids and cefepime which were stopped when urine culture grew vijay glabata but no bacteria. Repeat cath UA still shows marked leukouria but culture grew vijay albicans. ID consult recommended treatment for prostatitis with 1 month of doxycycline. Patient was able to feed himself but needs full assist in transfer and ambulation even with PT treatment for a week. Was supposed to go to [facility] for continued therapy but patient developed leukocytosis and increased confusion just prior to discharge. Assessment/Plan (1) Leukocytosis Status: Acute Comment: Sudden occurence on 02-16 suggestive of occult infections. Blood cultures pending . Check lactic acid since patient had shaking chills last night. Continue amphotericin bladder washing for possible invasive fungal cystitis. Continue cefepime for possible pneumonitis. Continue doxycycline for prostatitis and/or cellulitis. (2) Pyuria Status: Acute Comment: Continue amphotericin bladder washing for possible invasive fungal cystitis and doxycycline for prostatitis. (3) Dehydration Status: Acute Comment: Patient skipping meals when he has altered mental status. Continue IV fluids for now. (4) Sacral decubitus ulcer Status: Chronic Comment: Continue local wound care for small stage 2 sacral ulcers. Qualifiers: Pressure injury stage: stage 2 Qualified Codes: L89.152 - Pressure ulcer of sacral region, stage 2 (5) Confusion Status: Acute Comment: Worsened mental status since leukocytosis onset suggest possible systemic sepsis. (6) Anxiety and depression Status: Chronic Comment: Patient has low motivation and refusing PT again. Will resume lexapro. Result Diagram: 02/22/19 0502 02/22/19 0502 Results 24hrs Laboratory Tests Test 02/22/19 05:02 White Blood Count 16.0 H Red Blood Count 3.82 L Hemoglobin 10.5 L Hematocrit 33.7 L Mean Corpuscular Volume 88.2 Mean Corpuscular Hemoglobin 27.5 L Mean Corpuscular Hemoglobin Concent 31.2 L Red Cell Distribution Width 15.9 H Platelet Count 215 # Mean Platelet Volume 12.1 H Immature Granulocytes % 0.600 H Neutrophils % 71.3 Lymphocytes % 12.1 L Monocytes % 12.0 H Eosinophils % 3.4 Basophils % 0.6 Nucleated Red Blood Cells % 0.0 Immature Granulocytes # 0.100 H Neutrophils # 11.4 H Lymphocytes # 1.9 Monocytes # 1.9 H Eosinophils # 0.6 H Basophils # 0.1 Nucleated Red Blood Cells # 0.0 Sodium Level 143 Potassium Level 4.8 Chloride Level 110 Carbon Dioxide Level 22 Anion Gap 11 Blood Urea Nitrogen 58 H Creatinine 1.65 H Est Glomerular Filtrat Rate mL/min Glucose Level 101 Calcium Level 10.9 H Subjective 24 Hr Interval Summary Constitutional: no complaints Exam/Review of Systems Exam Vitals Vital Signs Date Temp Pulse Resp B/P (MAP) Pulse Ox O2 O2 Flow FiO2 Time Delivery Rate 02/22/19 98.3 73 18 114/59 94 Nasal 15:23 (77) Cannula 02/22/19 2.0 14:57 02/19/19 21 01:25 Intake and Output 02/21/19 02/21/19 02/22/19 1515:00 23:00 07:00 IntakeIntake Total 550 ml 1200 ml 200 ml OutputOutput Total 1100 ml 1050 ml BalanceBalance 550 ml 100 ml -850 ml Constitutional: alert Psych: confusion Head: normocephalic, atraumatic Neck: supple, non-tender Respiratory: clear to auscultation, normal air movement Cardiovascular: regular rate and rhythm Gastrointestinal: soft, other Musculoskeletal: nl extremities to inspection Results Results 24hrs Laboratory Tests Test 02/22/19 05:02 White Blood Count 16.0 H Red Blood Count 3.82 L Hemoglobin 10.5 L Hematocrit 33.7 L Mean Corpuscular Volume 88.2 Mean Corpuscular Hemoglobin 27.5 L Mean Corpuscular Hemoglobin Concent 31.2 L Red Cell Distribution Width 15.9 H Platelet Count 215 # Mean Platelet Volume 12.1 H Immature Granulocytes % 0.600 H Neutrophils % 71.3 Lymphocytes % 12.1 L Monocytes % 12.0 H Eosinophils % 3.4 Basophils % 0.6 Nucleated Red Blood Cells % 0.0 Immature Granulocytes # 0.100 H Neutrophils # 11.4 H Lymphocytes # 1.9 Monocytes # 1.9 H Eosinophils # 0.6 H Basophils # 0.1 Nucleated Red Blood Cells # 0.0 Sodium Level 143 Potassium Level 4.8 Chloride Level 110 Carbon Dioxide Level 22 Anion Gap 11 Blood Urea Nitrogen 58 H Creatinine 1.65 H Est Glomerular Filtrat Rate mL/min Glucose Level 101 Calcium Level 10.9 H Medications Medication Current Medications Acetaminophen (Tylenol Tab) 650 mg Q4 PRN PO MILD PAIN(1-3)OR ELEVATED TEMP Last administered on 02/22/19 01:46; Admin Dose 650 MG; Start 02/06/19 at 00:00 Acetylcysteine (Mucomyst) 2 ml Q6H RESP THERAPY NEB Last administered on 02/22/19 14:57; Admin Dose 2 ML; Start 02/06/19 at 02:00 Apixaban (Eliquis) 2.5 mg BID PO Last administered on 02/22/19 09:53; Admin Dose 2.5 MG; Start 02/06/19 at 09:00 Atorvastatin Calcium (Lipitor) 20 mg QHS PO Last administered on 02/21/19 21:42; Admin Dose 20 MG; Start 02/06/19 at 21:00 Bupropion HCl (Wellbutrin Xl) 300 mg DAILY PO Last administered on 02/22/19 1 0:29; Admin Dose 300 MG; Start 02/06/19 at 09:00 Docusate Sodium (Colace) 100 mg QHS PO Last administered on 02/21/19 21:46; Admin Dose 100 MG; Start 02/06/19 at 21:00 Fluticasone/ Vilanterol (Breo Ellipta 200-25 Mcg Inh) 1 inh DAILY INH Last administered on 02/22/19 09:55; Admin Dose 1 INH; Start 02/06/19 at 09:00 Mirtazapine (Remeron) 15 mg HS PO Last administered on 02/21/19 21:42; Admin Dose 15 MG; Start 02/06/19 at 21:00 Pantoprazole (Protonix Tab) 40 mg AC BREAKFAST PO Last administered on 02/22/19 06:54; Admin Dose 40 MG; Start 02/06/19 at 07:20 IV Flush (NS 3 ml) 3 ml PER PROTOCOL IV Last administered on 4/11/19at 00:04; Admin Dose 3 ML; Start 02/06/19 at 00:00 Ondansetron HCl (Zofran Inj) 4 mg Q6H PRN IV NAUSEA/VOMITING; Start 02/06/19 at 00:00 Magnesium Hydroxide (Milk Of Mag) 30 ml DAILY PRN PO .CONSTIPATION; Start 02/06/19 at 00:00 Sodium Biphosphate/ Sodium Phosphate (Fleet Enema) 133 ml DAILY PRN [place] .CONSTIPATION; Start 02/06/19 at 00:00 [facility]isc[facility] This patient sawyer... PRN PRN XX WOUND CARE; Start 02/06/19 at 08:00 Albuterol/ Ipratropium (Duoneb) 3 ml Q6H RESP THERAPY HHN Last administered on 02/22/19 14:57; Admin Dose 3 ML; Start 02/06/19 at 08:30 Metoprolol Tartrate (Lopressor) 25 mg BID PO Last administered on 02/22/19 09:54; Admin Dose 25 MG; Start 02/09/19 at 21:00 Doxycycline Hyclate (Vibramycin) 100 mg BID PO Last administered on 02/22/19 09:53; Admin Dose 100 MG; Start 02/12/19 at 21:00 Guaifenesin (Robitussin Liquid Cup) 200 mg Q4H PRN PO COUGH; Start 02/18/19 at 18:00 Amphotericin B (Fungizone) 1,000 ml Q24H IRR Last administered on 02/21/19at 20:12; Admin Dose 1,000 ML; Start 02/18/19 at 20:00; Stop 02/22/19 at 20:01 Dextrose 1,000 ml @ 100 mls/hr Q10H IV Last administered on 02/22/19 14:56; Admin Dose 100 MLS/HR; Start 02/19/19 at 18:00 Cefepime HCl 50 ml @ 100 mls/hr Q24H IVPB Last administered on 02/20/19 20:45; Admin Dose 100 MLS/HR; Start 02/19/19 at 21:00 Escitalopram Oxalate (Lexapro) 10 mg DAILY PO Last administered on 02/22/19 09:53; Admin Dose 10 MG; Start 02/22/19 at 09:00 BREEZY FRIAS MD Feb 22, 2019 15:45
[2019-02-22] MEDS: AMPHOTERICIN B IRR SCH (19:58)
[2019-02-22] MEDS: MIRTAZAPINE 15 MG TAB PO SCH (20:43)
[2019-02-22] MEDS: CEFEPIME 1GM/50 ML (PMX) 50 ML IVPB SCH (20:43)
[2019-02-22] MEDS: DOCUSATE SODIUM 100 MG CAP PO SCH (20:43)
[2019-02-22] MEDS: ATORVASTATIN 20 MG TAB PO SCH (20:55)
[2019-02-23] MEDS: ALBUTEROL/IPRATROPIUM (NEB) 3 ML AMP HHN SCH ×4 (02:08→21:19)
[2019-02-23] MEDS: ACETYLCYSTEINE 20% 4 ML VIAL NEB SCH ×4 (02:08→21:19)
[2019-02-23 02:29] VITALS: BP 118/56; PULSE 78; RESP 20
[2019-02-23] MEDS: DEXTROSE 5% 1,000 ML IV SCH ×4 (02:41→23:46)
[2019-02-23] MEDS: PANTOPRAZOLE (EC) 40 MG TAB PO SCH (05:54)
[2019-02-23 07:34] VITALS: BP 142/67; PULSE 80; RESP 17
[2019-02-23] MEDS: BUPROPION (XL) 150 MG TAB PO SCH (08:25)
[2019-02-23] MEDS: ESCITALOPRAM 10 MG TAB PO SCH (08:25)
[2019-02-23] MEDS: DOXYCYCLINE 100 MG TAB PO SCH ×2 (08:26→21:26)
[2019-02-23] MEDS: APIXABAN 5 MG TABLET PO SCH ×2 (08:27→21:27)
[2019-02-23] MEDS: METOPROLOL 25 MG TAB PO SCH ×2 (08:27→21:27)
[2019-02-23] MEDS: FLUTICASONE/VILANTEROL 200-25 INH DEVICE INH SCH (08:32)
[2019-02-23] MEDS: BALSAM PERU/CASTOR OIL 60 GM TUBE TOP SCH ×2 (08:32→21:28)
--- NOTE | 2019-02-23 12:28 | PN ---
Date/Time of Note Date/Time of Note DATE: 02/23/19 TIME: 12:26 Assessment/Plan VTE Prophylaxis Risk score (from [facility])>0 risk: 9 SCD applied (from [facility]): Yes Pharmacological prophylaxis: apixaban Lines/Catheters IV Catheter Type (from [facility]): Peripheral IV Urinary Cath still in place: Yes Reason Cath still needed: pres ulcer contaminated by urine, other (indicate) (amphotericin bladder washings) Assessment/Plan Hospital Course Patient was admitted with altered mental status and acute dehydration and leukouria. His mental status and dehydration improved with IV fluids and cefepime which were stopped when urine culture grew vijay glabata but no bacteria. Repeat cath UA still shows marked leukouria but culture grew vijay albicans. ID consult recommended treatment for prostatitis with 1 month of doxycycline. Patient was able to feed himself but needs full assist in transfer and ambulation even with PT treatment for a week. Was supposed to go to [facility] for continued therapy but patient developed leukocytosis and increased confusion just prior to discharge. Assessment/Plan (1) Leukocytosis Status: Acute Comment: Sudden occurence on 02-16 suggestive of occult infections. Blood cultures negative so far. Continue amphotericin bladder washing for possible invasive fungal cystitis. Continue cefepime for possible pneumonitis. Continue doxycycline for prostatitis and/or cellulitis although right elbow swelling is much better.. (2) Pyuria Status: Acute Comment: Continue amphotericin bladder washing for possible invasive fungal cystitis and doxycycline for prostatitis. (3) Dehydration Status: Acute Comment: Patient skipping meals when he has altered mental status. Continue IV fluids for now. (4) Sacral decubitus ulcer Status: Chronic Comment: Continue local wound care for small stage 2 sacral ulcers. Qualifiers: Pressure injury stage: stage 2 Qualified Codes: L89.152 - Pressure ulcer of sacral region, stage 2 (5) Confusion Status: Acute Comment: Worsened mental status since leukocytosis onset suggest possible systemic sepsis. (6) Anxiety and depression Status: Chronic Comment: Patient appears more alert and responsive on lexapro, remeron and wellbutrin. Result Diagram: 02/22/19 0502 02/22/19 0502 Subjective 24 Hr Interval Summary Constitutional: no complaints Exam/Review of Systems Exam Vitals Vital Signs Date Temp Pulse Resp B/P (MAP) Pulse Ox O2 O2 Flow FiO2 Time Delivery Rate 02/23/19 2.0 08:54 02/23/19 Nasal 08:00 Cannula 02/23/19 97.8 80 17 142/67 99 07:34 (92) 02/22/19 21 19:35 Intake and Output 02/22/19 02/22/19 02/23/19 1414:59 22:59 06:59 IntakeIntake Total 2000 ml 1010 ml 1140 ml OutputOutput Total 1210 ml 2260 ml 1500 ml BalanceBalance 790 ml -1250 ml -360 ml Constitutional: alert, oriented Head: normocephalic, atraumatic Respiratory: clear to auscultation Cardiovascular: regular rate and rhythm Gastrointestinal: soft Musculoskeletal: nl extremities to inspection Medications Medication Current Medications Acetaminophen (Tylenol Tab) 650 mg Q4 PRN PO MILD PAIN(1-3)OR ELEVATED TEMP Last administered on 02/22/19 20:55; Admin Dose 650 MG; Start 02/06/19 at 00:00 Acetylcysteine (Mucomyst) 2 ml Q6H RESP THERAPY NEB Last administered on 02/23/19 02:08; Admin Dose 2 ML; Start 02/06/19 at 02:00 Apixaban (Eliquis) 2.5 mg BID PO Last administered on 02/23/19 08:27; Admin Dose 2.5 MG; Start 02/06/19 at 09:00 Atorvastatin Calcium (Lipitor) 20 mg QHS PO Last administered on 02/22/19 20:55; Admin Dose 20 MG; Start 02/06/19 at 21:00 Bupropion HCl (Wellbutrin Xl) 300 mg DAILY PO Last administered on 02/23/19 08:25; Admin Dose 300 MG; Start 02/06/19 at 09:00 Docusate Sodium (Colace) 100 mg QHS PO Last administered on 02/22/19 20:43; Admin Dose 100 MG; Start 02/06/19 at 21:00 Fluticasone/ Vilanterol (Breo Ellipta 200-25 Mcg Inh) 1 inh DAILY INH Last administered on 02/22/19 09:55; Admin Dose 1 INH; Start 02/06/19 at 09:00 Mirtazapine (Remeron) 15 mg HS PO Last administered on 02/22/19 20:43; Admin Dose 15 MG; Start 02/06/19 at 21:00 Pantoprazole (Protonix Tab) 40 mg AC BREAKFAST PO Last administered on 02/23/19 05:54; Admin Dose 40 MG; Start 02/06/19 at 07:20 IV Flush (NS 3 ml) 3 ml PER PROTOCOL IV Last administered on 02/06/19 00:04; Admin Dose 3 ML; Start 02/06/19 at 00:00 Ondansetron HCl (Zofran Inj) 4 mg Q6H PRN IV NAUSEA/VOMITING; Start 02/06/19 at 00:00 Magnesium Hydroxide (Milk Of Mag) 30 ml DAILY PRN PO .CONSTIPATION; Start 02/06/19 at 00:00 Sodium Biphosphate/ Sodium Phosphate (Fleet Enema) 133 ml DAILY PRN [place] .CONSTIPATION; Start 02/06/19 at 00:00 Miscellaneous Information (Pending [facility] Order For Wound Care) This patient sawyer... PRN PRN XX WOUND CARE; Start 02/06/19 at 08:00 Albuterol/ Ipratropium (Duoneb) 3 ml Q6H RESP THERAPY HHN Last administered on 02/23/19 02:08; Admin Dose 3 ML; Start 02/06/19 at 08:30 Metoprolol Tartrate (Lopressor) 25 mg BID PO Last administered on 02/23/19 08:27; Admin Dose 25 MG; Start 02/09/19 at 21:00 Doxycycline Hyclate (Vibramycin) 100 mg BID PO Last administered on 02/23/19 08:26; Admin Dose 100 MG; Start 02/12/19 at 21:00 Guaifenesin (Robitussin Liquid Cup) 200 mg Q4H PRN PO COUGH; Start 02/18/19 at 18:00 Dextrose 1,000 ml @ 100 mls/hr Q10H IV Last administered on 02/23/19 02:41; Admin Dose 100 MLS/HR; Start 02/19/19 at 18:00 Cefepime HCl 50 ml @ 100 mls/hr Q24H IVPB Last administered on 02/22/19 20:43; Admin Dose 100 MLS/HR; Start 02/19/19 at 21:00 Escitalopram Oxalate (Lexapro) 10 mg DAILY PO Last administered on 02/23/19 08:25; Admin Dose 10 MG; Start 02/22/19 at 09:00 BREEZY FRIAS MD Feb 23, 2019 12:28
[2019-02-23 15:21] VITALS: BP 134/82; PULSE 72; RESP 17
--- NOTE | 2019-02-23 20:00 | CONS ---
Consult Date/Type/Reason Admit Date/Time Feb 05, 2019 at 20:14 Initial Consult Date 02/18/19 Type of Consultation: urology Reason for Consultation Pyuria Requesting Provider: BREEZY FRIAS MD Date/Time of Note DATE: 02/23/19 TIME: 19:56 Subjective Patient is sleeping and his family at his bedside. I woke him up and asked him how is he doing and he answered: fine Objective Vitals Vital Signs Date Temp Pulse Resp B/P (MAP) Pulse Ox O2 O2 Flow FiO2 Time Delivery Rate 02/23/19 98.6 72 17 134/82 98 Nasal 15:21 (99) Cannula 02/23/19 2.0 13:50 02/22/19 21 19:35 Intake and Output 02/22/19 02/22/19 02/23/19 1515:00 23:00 07:00 IntakeIntake Total 1900 ml 1010 ml 1140 ml OutputOutput Total 1210 ml 2260 ml 1500 ml BalanceBalance 690 ml -1250 ml -360 ml Exam The Lazaro catheter is draining clear urine. It still has some occasional cloudiness. The amphotericin irrigation was stopped on 02/23/2020 after running for 5 days. Results/Medications Result Diagram: 02/22/19 0502 02/22/19 0502 Home Meds Active Scripts Ciprofloxacin Hcl* (Ciprofloxacin Hcl*) 250 Mg Tablet, 250 MG PO BID for 7 Days, #14 TAB Prov:BREEZY FRIAS MD 01/31/19 Guaifenesin (Guaifenesin) 600 Mg Tablet.sa, 600 MG PO BID for 30 Days, #60 Prov:BREEZY FRIAS MD 01/31/19 Acetylcysteine* (Mucomyst*) 4 Ml Soln, 2 ML NEB Q6H RESP THERAPY for 30 Days, #1 BOTTLE Prov:BREEZY FRIAS MD 01/31/19 Bupropion Hcl* (Bupropion XL*) 150 Mg Tab.er.24h, 300 MG PO DAILY for 30 Days, #30 Prov:BREEZY FRIAS MD 01/31/19 Reported Medications Fluticasone/Vilanterol (Breo Ellipta 200-25 Mcg INH) 1 Each Blst.w.dev, 1 PUFF INHALATION DAILY, #1 INHALER 01/09/19 Diltiazem Hcl (Diltiazem) 120 Mg Capsr, 120 MG PO QAM, #30 CAP 01/09/19 Pantoprazole* (Pantoprazole*) 40 Mg Tablet.dr, 40 MG PO AC BREAKFAST, TAB 01/09/19 Mirtazapine* (Mirtazapine*) 15 Mg Tablet, 15 MG PO HS, TAB 01/09/19 Metoprolol Tartrate* (Lopressor*) 50 Mg Tab, 50 MG PO BID, #60 TAB 01/09/19 Docusate Sodium* (Colace*) 100 Mg Capsule, 100 MG PO QHS, #30 CAP 01/09/19 Diazepam* (Diazepam*) 2 Mg Tablet, 2 MG PO QHS, TAB 01/09/19 Atorvastatin Calcium* (Atorvastatin Calcium*) 20 Mg Tablet, 20 MG PO QHS, #30 TAB 01/09/19 Acetaminophen* (Acetaminophen*) 325 Mg Tablet, 650 MG PO NEEDED PRN for PAIN AND OR ELEVATED TEMP, #30 TAB 01/09/19 Apixaban* (Eliquis*) 5 Mg Tablet, 5 MG PO BID, TAB 01/09/19 Medications Current Medications Acetaminophen (Tylenol Tab) 650 mg Q4 PRN PO MILD PAIN(1-3)OR ELEVATED TEMP Last administered on 02/22/19at 20:55; Admin Dose 650 MG; Start 02/06/19 at 00:00 Acetylcysteine (Mucomyst) 2 ml Q6H RESP THERAPY NEB Last administered on 02/23/19at 02:08; Admin Dose 2 ML; Start 02/06/19 at 02:00 Apixaban (Eliquis) 2.5 mg BID PO Last administered on 02/23/19 08:27; Admin Dose 2.5 MG; Start 02/06/19 at 09:00 Atorvastatin Calcium (Lipitor) 20 mg QHS PO Last administered on 02/22/19at 20:55; Admin Dose 20 MG; Start 02/06/19 at 21:00 Bupropion HCl (Wellbutrin Xl) 300 mg DAILY PO Last administered on 02/23/19 08:25; Admin Dose 300 MG; Start 02/06/19 at 09:00 Docusate Sodium (Colace) 100 mg QHS PO Last administered on 02/22/19at 20:43; Admin Dose 100 MG; Start 02/06/19 at 21:00 Fluticasone/ Vilanterol (Breo Ellipta 200-25 Mcg Inh) 1 inh DAILY INH Last administered on 02/22/19 09:55; Admin Dose 1 INH; Start 02/06/19 at 09:00 Mirtazapine (Remeron) 15 mg HS PO Last administered on 02/22/19 20:43; Admin Dose 15 MG; Start 02/06/19 at 21:00 Pantoprazole (Protonix Tab) 40 mg AC BREAKFAST PO Last administered on 02/23/19 05:54; Admin Dose 40 MG; Start 02/06/19 at 07:20 IV Flush (NS 3 ml) 3 ml PER PROTOCOL IV Last administered on 02/06/19 00:04; Admin Dose 3 ML; Start 02/06/19 at 00:00 Ondansetron HCl (Zofran Inj) 4 mg Q6H PRN IV NAUSEA/VOMITING; Start 02/06/19 at 00:00 Magnesium Hydroxide (Milk Of Mag) 30 ml DAILY PRN PO .CONSTIPATION; Start 02/06/19 at 00:00 Sodium Biphosphate/ Sodium Phosphate (Fleet Enema) 133 ml DAILY PRN [place] .CONSTIPATION; Start 02/06/19 at 00:00 Miscellaneous Information (Pending [facility] Order For Wound Care) This patient sawyer... PRN PRN XX WOUND CARE; Start 02/06/19 at 08:00 Albuterol/ Ipratropium (Duoneb) 3 ml Q6H RESP THERAPY HHN Last administered on 02/23/19 13:53; Admin Dose 3 ML; Start 02/06/19 at 08:30 Metoprolol Tartrate (Lopressor) 25 mg BID PO Last administered on 02/23/19 08:27; Admin Dose 25 MG; Start 02/09/19 at 21:00 Doxycycline Hyclate (Vibramycin) 100 mg BID PO Last administered on 02/23/19 08:26; Admin Dose 100 MG; Start 02/12/19 at 21:00 Guaifenesin (Robitussin Liquid Cup) 200 mg Q4H PRN PO COUGH; Start 02/18/19 at 18:00 Dextrose 1,000 ml @ 100 mls/hr Q10H IV Last administered on 02/23/19 14:33; Admin Dose 100 MLS/HR; Start 02/19/19 at 18:00 Cefepime HCl 50 ml @ 100 mls/hr Q24H IVPB Last administered on 02/22/19at 20:43; Admin Dose 100 MLS/HR; Start 02/19/19 at 21:00 Escitalopram Oxalate (Lexapro) 10 mg DAILY PO Last administered on 02/23/19at 08:25; Admin Dose 10 MG; Start 02/22/19 at 09:00 Assessment/Plan Hospital Course (Demo Recall) 83-year-old male was admitted to the hospital because of progressive lethargy. He was unable to wake up to take his medications or eat. Work up in the emergency room shows elevated WBC, BUN/creatinine and abnormal urine suggestive of dehydration and urosepsis. The patient was treated was on the antibiotics yet he continued to have pyuria and is urine culture did show once Enriqueta glabrata and another time Enriqueta albicans with mixed gram-positive organisms. Repeat urine culture on 02/18/2019 grew Enriqueta glabrata. The amphotericin bladder irrigation was discontinued on 02/22/2019 after running for 5 days. I will discontinue the Lazaro catheter at 6 AM Sunday, February 24, 2019. I would leave it to Dr. Taylor if he thinks oral antifungal medication (voriconazole/fluconazole)may be helpful. SARITHA OWEN MD Feb 23, 2019 19:59
[2019-02-23 20:47] VITALS: BP 115/77; PULSE 72; RESP 18
[2019-02-23] MEDS: CEFEPIME 1GM/50 ML (PMX) 50 ML IVPB SCH (21:26)
[2019-02-23] MEDS: DOCUSATE SODIUM 100 MG CAP PO SCH (21:26)
[2019-02-23] MEDS: ATORVASTATIN 20 MG TAB PO SCH (21:26)
[2019-02-23] MEDS: MIRTAZAPINE 15 MG TAB PO SCH (21:27)
[2019-02-24 01:57] VITALS: BP 115/58; PULSE 73; RESP 22
[2019-02-24] MEDS: ALBUTEROL/IPRATROPIUM (NEB) 3 ML AMP HHN SCH ×4 (02:03→19:59)
[2019-02-24] MEDS: ACETYLCYSTEINE 20% 4 ML VIAL NEB SCH ×4 (02:03→19:59)
--- NOTE | 2019-02-24 07:16 | CONS ---
Assessment/Plan Assessment/Plan Hospital Course (Demo Recall) 1) lethargy this seems to wax and wane pt's caregiver that last time he was in the hospital he got more lethargic from the meds he was given I doubt infection is causing his lethargy at this time 02/18 - pt less lethargic this a.m. but has confusion 2) pyuria initial urine cx grew 50k c.glabrata and repeat shows <10k of c.alb I doubt either one is the cause of his pyuria agree to stopping of cefepime since he has neg cx for bacteria x2 I doubt he has an active UTI he may have some prostatitis and a trial of doxycycline to treat atypicals might be of benefit I will start doxycycline to treat possible prostatitis and if his pyuria does not resolve then I would recommend urology consult 02/13 - pt tolerating his doxycycline so far, continue for one month and re-check u/a, urine cx 1 week after he is done with his antibiotics 02/17 - due to elevated WBC will re-order u/a and urine cx 02/18 - pyuria persists urine cx has 5K colonies of likely enterococcus which is not significant continue doxycycline at present consider urology consult I will order urine for AFB cx 02/19 - urine cx from 02/17 only had 5k of enterococcus urine cx from 02/[address] Hancock noted pus in his urine when he urinated and believes pt retains small amout of pus in bladder due to small amout of residual urine left when he urinates pt has been placed on ampho B bladder irrigation, if repeat urine cx from yesterday remains neg can d/c the ampho B doubt pt would benefit from IV ampho B, if vijay is present the bladder irrigation should be sufficient continue with doxycycline CT shows no change in hyperdense mass to L lower kidney 02/20 - ur cx has >100k of yeast continue with ampho B irrigation (5 days as originally planned by Dr. Hancock) 02/24 - pt's 5th day of ampho B bladder irrigation was finished yesterday evening will order repeat u/a and urine cx 3) COPD breathing is currently stable 02/17- CXR does not show raimundo pneumonia, his O2 sats have been stable will order procalcitonin, doubt he has pneumonia 02/18 - breathing is stable and pt appears comfortable procalcitonin is pending WBC is down a bit today CT chest is pending 02/19 - CT chest has smaller amount of infiltrates to lower lungs, doubt he has active pneumonia 02/20 - stable, procalcitonin is pending 02/21 - cefepime was started by Dr. Frias if procalcitonin comes back neg to d/c cefepime then 02/24 - procalcitonin was marginally elevated on cefepime, to repeat procalcitonin today 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 5) hx of DVT 6) CAD 7) HTN 8) hx of CVA 9) leukocytosis 02/17 - unexplained, no obvious source of infection CXR shows atelectasis/small pleural effusions and no change in O2 sats will order procalcitonin, u/a and urine cx 02/18 - urine cx only has 5k colonies of likely enterococcus which is not significant breathing is stable no diarrhea WBC a bit improved no additional antibiotics at this time CT chest/abd/pelv is pending 02/20 - RUE is swollen, will order RUE venous doppler continue with ampho B bladder irrigation and doxycycline await procalcitonin if elevated will start pneumonia treatment repeat urine cx has >100k yeast but doubt this is the source for his leukocytosis check cbc, cmp in a.m. pt has persistent hypercalcemia 02/21 - RUE venous doppler was neg and swelling is less doubt he has cellulitis and doxycycline has excellent staph coverage, to d/c vanco on cefepime for possible pneumonia, if procalcitonin on 02/18 comes back neg then will d/c cefepime pt to complete his ampho B bladder irrigation after dose on 02/22 02/23 - improved WBC today pt has RUE IV infiltrated with small pustules and redness noted I have ordered cx of these pustules, continue with cefepime/doxy at present repeat u/a and urine cx now that ampho B bladder irrigation was completed last evening repeat procalcitonin this a.m. Consultation Date/Type/Reason Admit Date/Time Feb 05, 2019 at 20:14 Initial Consult Date 02/12/19 Type of Consult ID Requesting Provider: BREEZY FRIAS MD Date/Time of Note DATE: 02/24/19 TIME: 07:11 24 HR Interval Summary Free Text/Dictation spoke to nurse IV infiltrated on R and there are some small pustules, redness and increase in heat, no diarrhea no cough no vomiting Exam/Review of Systems Exam Vitals Vital Signs Date Temp Pulse Resp B/P (MAP) Pulse Ox O2 O2 Flow FiO2 Time Delivery Rate 02/24/19 73 24 Nasal 2.0 02:04 Cannula 02/24/19 97 02:04 02/24/19 98.6 115/58 01:57 (77) 02/22/19 21 19:35 Intake and Output 02/23/19 02/23/19 02/24/19 1515:00 23:00 07:00 IntakeIntake Total 700 ml 520 ml 1330 ml OutputOutput Total 1450 ml 900 ml BalanceBalance 700 ml -930 ml 430 ml Constitutional: non-verbal Respiratory: clear to auscultation Cardiovascular: regular rate and rhythm Gastrointestinal: soft, non-tender Extremities: other (R amr is bandaged, pic seen of it) Results Result Diagram: 02/24/19 0546 02/24/19 0442 Results 24hrs Laboratory Tests Test 02/24/19 04:42 02/24/19 05:46 Sodium Level 135 Potassium Level 4.2 Chloride Level 106 Carbon Dioxide Level 21 Anion Gap 8 Blood Urea Nitrogen 42 #H Creatinine 1.27 H Est Glomerular Filtrat Rate mL/min Glucose Level 91 Calcium Level 10.2 White Blood Count 14.2 H Red Blood Count 3.37 L Hemoglobin 9.2 L Hematocrit 29.5 L Mean Corpuscular Volume 87.5 Mean Corpuscular Hemoglobin 27.3 L Mean Corpuscular Hemoglobin Concent 31.2 L Red Cell Distribution Width 15.4 H Platelet Count 179 Mean Platelet Volume 12.1 H Immature Granulocytes % 0.600 H Neutrophils % 70.1 Lymphocytes % 13.1 L Monocytes % 12.3 H Eosinophils % 3.5 Basophils % 0.4 Nucleated Red Blood Cells % 0.0 Immature Granulocytes # 0.080 H Neutrophils # 10.0 H Lymphocytes # 1.9 Monocytes # 1.7 H Eosinophils # 0.5 Basophils # 0.1 Nucleated Red Blood Cells # 0.0 Medications Medication Current Medications Acetaminophen (Tylenol Tab) 650 mg Q4 PRN PO MILD PAIN(1-3)OR ELEVATED TEMP Last administered on 02/22/19at 20:55; Admin Dose 650 MG; Start 02/06/19 at 00:00 Acetylcysteine (Mucomyst) 2 ml Q6H RESP THERAPY NEB Last administered on 02/24/19 02:03; Admin Dose 2 ML; Start 02/06/19 at 02:00 Apixaban (Eliquis) 2.5 mg BID PO Last administered on 02/23/19 21:27; Admin Dose 2.5 MG; Start 02/06/19 at 09:00 Atorvastatin Calcium (Lipitor) 20 mg QHS PO Last administered on 02/23/19 21:26; Admin Dose 20 MG; Start 02/06/19 at 21:00 Bupropion HCl (Wellbutrin Xl) 300 mg DAILY PO Last administered on 02/23/19 08:25; Admin Dose 300 MG; Start 02/06/19 at 09:00 Docusate Sodium (Colace) 100 mg QHS PO Last administered on 02/23/19 21:26; Admin Dose 100 MG; Start 02/06/19 at 21:00 Fluticasone/ Vilanterol (Breo Ellipta 200-25 Mcg Inh) 1 inh DAILY INH Last administered on 02/22/19 09:55; Admin Dose 1 INH; Start 02/06/19 at 09:00 Mirtazapine (Remeron) 15 mg HS PO Last administered on 02/23/19 21:27; Admin Dose 15 MG; Start 02/06/19 at 21:00 Pantoprazole (Protonix Tab) 40 mg AC BREAKFAST PO Last administered on 02/23/19 05:54; Admin Dose 40 MG; Start 02/06/19 at 07:20 IV Flush (NS 3 ml) 3 ml PER PROTOCOL IV Last administered on 02/06/19 00:04; Admin Dose 3 ML; Start 02/06/19 at 00:00 Ondansetron HCl (Zofran Inj) 4 mg Q6H PRN IV NAUSEA/VOMITING; Start 02/06/19 at 00:00 Magnesium Hydroxide (Milk Of Mag) 30 ml DAILY PRN PO .CONSTIPATION; Start 02/06/19 at 00:00 Sodium Biphosphate/ Sodium Phosphate (Fleet Enema) 133 ml DAILY PRN [place] .CONSTIPATION; Start 02/06/19 at 00:00 Miscellaneous Information (Pending Santyl Order For Wound Care) This patient sawyer... PRN PRN XX WOUND CARE; Start 02/06/19 at 08:00 Albuterol/ Ipratropium (Duoneb) 3 ml Q6H RESP THERAPY HHN Last administered on 02/24/19 02:03; Admin Dose 3 ML; Start 02/06/19 at 08:30 Metoprolol Tartrate (Lopressor) 25 mg BID PO Last administered on 02/23/19 21:27; Admin Dose 25 MG; Start 02/09/19 at 21:00 Doxycycline Hyclate (Vibramycin) 100 mg BID PO Last administered on 02/23/19 21:26; Admin Dose 100 MG; Start 02/12/19 at 21:00 Guaifenesin (Robitussin Liquid Cup) 200 mg Q4H PRN PO COUGH; Start 02/18/19 at 18:00 Dextrose 1,000 ml @ 100 mls/hr Q10H IV Last administered on 02/23/19 23:46; Admin Dose 100 MLS/HR; Start 02/19/19 at 18:00 Cefepime HCl 50 ml @ 100 mls/hr Q24H IVPB Last administered on 02/23/19 21:26; Admin Dose 100 MLS/HR; Start 02/19/19 at 21:00 Escitalopram Oxalate (Lexapro) 10 mg DAILY PO Last administered on 02/23/19 08:25; Admin Dose 10 MG; Start 02/22/19 at 09:00 MIGUELITO VASQUEZ MD Feb 24, 2019 07:16
[2019-02-24 08:00] VITALS: BP 120/54; PULSE 80
--- NOTE | 2019-02-24 08:40 | CONS ---
Assessment/Plan Assessment/Plan Hospital Course (Demo Recall) 83-year-old male was admitted to the hospital because of progressive lethargy. He was unable to wake up to take his medications or eat. Work up in the emergency room shows elevated WBC, BUN/creatinine and abnormal urine suggestive of dehydration and urosepsis. The patient was treated was on the antibiotics yet he continued to have pyuria and is urine culture did show once Enriqueta glabrata and another time Enriqueta albicans with mixed gram-positive organisms. Repeat urine culture on 02/18/2019 grew Enriqueta glabrata. The amphotericin bladder irrigation was discontinued on 02/22/2019 after running for 5 days. The Lazaro catheter has been removed. Patient has not voided yet. Urologically at the present time no plan for any intervention. Consultation Date/Type/Reason Admit Date/Time Feb 05, 2019 at 20:14 Initial Consult Date 02/18/19 Type of Consult Urology Reason for Consultation Pyuria Requesting Provider: BREEZY FRIAS MD Date/Time of Note DATE: 02/24/19 TIME: 08:36 24 HR Interval Summary Free Text/Dictation Patient is resting comfortable. The Lazaro catheter was removed 2 hours earlier. Patient has not voided yet. Exam/Review of Systems Exam Vitals Vital Signs Date Temp Pulse Resp B/P (MAP) Pulse Ox O2 O2 Flow FiO2 Time Delivery Rate 02/24/19 75 20 92 Nasal 2.0 07:54 Cannula 02/24/19 98.6 115/58 01:57 (77) 02/22/19 21 19:35 Intake and Output 02/23/19 02/23/19 02/24/19 1515:00 23:00 07:00 IntakeIntake Total 700 ml 520 ml 1330 ml OutputOutput Total 1450 ml 900 ml BalanceBalance 700 ml -930 ml 430 ml Exam Abdomen is soft, there is no abdominal tenderness. The external genitalia are normal. Results Result Diagram: 02/24/19 0546 02/24/19 0442 Results 24hrs Laboratory Tests Test 02/24/19 04:42 02/24/19 05:46 Sodium Level 135 Potassium Level 4.2 Chloride Level 106 Carbon Dioxide Level 21 Anion Gap 8 Blood Urea Nitrogen 42 #H Creatinine 1.27 H Est Glomerular Filtrat Rate mL/min Glucose Level 91 Calcium Level 10.2 White Blood Count 14.2 H Red Blood Count 3.37 L Hemoglobin 9.2 L Hematocrit 29.5 L Mean Corpuscular Volume 87.5 Mean Corpuscular Hemoglobin 27.3 L Mean Corpuscular Hemoglobin Concent 31.2 L Red Cell Distribution Width 15.4 H Platelet Count 179 Mean Platelet Volume 12.1 H Immature Granulocytes % 0.600 H Neutrophils % 70.1 Lymphocytes % 13.1 L Monocytes % 12.3 H Eosinophils % 3.5 Basophils % 0.4 Nucleated Red Blood Cells % 0.0 Immature Granulocytes # 0.080 H Neutrophils # 10.0 H Lymphocytes # 1.9 Monocytes # 1.7 H Eosinophils # 0.5 Basophils # 0.1 Nucleated Red Blood Cells # 0.0 The creatinine has come down Medications Medication Current Medications Acetaminophen (Tylenol Tab) 650 mg Q4 PRN PO MILD PAIN(1-3)OR ELEVATED TEMP Last administered on 02/22/19 20:55; Admin Dose 650 MG; Start 02/06/19 at 00:00 Acetylcysteine (Mucomyst) 2 ml Q6H RESP THERAPY NEB Last administered on 02/24/19 07:53; Admin Dose 2 ML; Start 02/06/19 at 02:00 Apixaban (Eliquis) 2.5 mg BID PO Last administered on 02/23/19 21:27; Admin Dose 2.5 MG; Start 02/06/19 at 09:00 Atorvastatin Calcium (Lipitor) 20 mg QHS PO Last administered on 02/23/19 21:26; Admin Dose 20 MG; Start 02/06/19 at 21:00 Bupropion HCl (Wellbutrin Xl) 300 mg DAILY PO Last administered on 02/23/19 08:25; Admin Dose 300 MG; Start 02/06/19 at 09:00 Docusate Sodium (Colace) 100 mg QHS PO Last administered on 02/23/19 21:26; Admin Dose 100 MG; Start 02/06/19 at 21:00 Fluticasone/ Vilanterol (Breo Ellipta 200-25 Mcg Inh) 1 inh DAILY INH Last administered on 02/22/19 09:55; Admin Dose 1 INH; Start 02/06/19 at 09:00 Mirtazapine (Remeron) 15 mg HS PO Last administered on 02/23/19 21:27; Admin Dose 15 MG; Start 02/06/19 at 21:00 Pantoprazole (Protonix Tab) 40 mg AC BREAKFAST PO Last administered on 02/23/19 05:54; Admin Dose 40 MG; Start 02/06/19 at 07:20 IV Flush (NS 3 ml) 3 ml PER PROTOCOL IV Last administered on 02/06/19 00:04; Admin Dose 3 ML; Start 02/06/19 at 00:00 Ondansetron HCl (Zofran Inj) 4 mg Q6H PRN IV NAUSEA/VOMITING; Start 02/06/19 at 00:00 Magnesium Hydroxide (Milk Of Mag) 30 ml DAILY PRN PO .CONSTIPATION; Start 02/06/19 at 00:00 Sodium Biphosphate/ Sodium Phosphate (Fleet Enema) 133 ml DAILY PRN [place] .CONSTIPATION; Start 02/06/19 at 00:00 [facility] This patient sawyer... PRN PRN XX WOUND CARE; Start 02/06/19 at 08:00 Albuterol/ Ipratropium (Duoneb) 3 ml Q6H RESP THERAPY HHN Last administered on 02/24/19 07:53; Admin Dose 3 ML; Start 02/06/19 at 08:30 Metoprolol Tartrate (Lopressor) 25 mg BID PO Last administered on 02/23/19 21:27; Admin Dose 25 MG; Start 02/09/19 at 21:00 Doxycycline Hyclate (Vibramycin) 100 mg BID PO Last administered on 02/23/19 21:26; Admin Dose 100 MG; Start 02/12/19 at 21:00 Guaifenesin (Robitussin Liquid Cup) 200 mg Q4H PRN PO COUGH; Start 02/18/19 at 18:00 Dextrose 1,000 ml @ 100 mls/hr Q10H IV Last administered on 02/23/19 23:46; Admin Dose 100 MLS/HR; Start 02/19/19 at 18:00 Cefepime HCl 50 ml @ 100 mls/hr Q24H IVPB Last administered on 02/23/19 21:26; Admin Dose 100 MLS/HR; Start 02/19/19 at 21:00 Escitalopram Oxalate (Lexapro) 10 mg DAILY PO Last administered on 4/28/19at 08:25; Admin Dose 10 MG; Start 02/22/19 at 09:00 SARITHA OWEN MD Feb 24, 2019 08:40
[2019-02-24] MEDS: PANTOPRAZOLE (EC) 40 MG TAB PO SCH (09:10)
[2019-02-24] MEDS: BUPROPION (XL) 150 MG TAB PO SCH (09:10)
[2019-02-24] MEDS: APIXABAN 5 MG TABLET PO SCH ×2 (09:11→21:41)
[2019-02-24] MEDS: ESCITALOPRAM 10 MG TAB PO SCH (09:11)
[2019-02-24] MEDS: FLUTICASONE/VILANTEROL 200-25 INH DEVICE INH SCH (09:11)
[2019-02-24] MEDS: METOPROLOL 25 MG TAB PO SCH ×2 (09:11→21:41)
[2019-02-24] MEDS: DOXYCYCLINE 100 MG TAB PO SCH ×2 (09:11→21:41)
[2019-02-24] MEDS: BALSAM PERU/CASTOR OIL 60 GM TUBE TOP SCH ×2 (09:12→21:42)
[2019-02-24 13:09] VITALS: BP 105/67; PULSE 76; RESP 19
[2019-02-24] MEDS: DEXTROSE 5% 1,000 ML IV SCH (14:37)
--- NOTE | 2019-02-24 17:02 | PN ---
Date/Time of Note Date/Time of Note DATE: 02/24/19 TIME: 16:58 Assessment/Plan VTE [place] [facility]: 10 [place]CD [place] [facility] Yes Pharmacological prophylaxis: apixaban Lines/Catheters IV [facility]ter Type (from [facility] Peripheral IV Urinary Cath still in place: No Assessment/Plan Hospital Course Patient was admitted with altered mental status and acute dehydration and leukouria. His mental status and dehydration improved with IV fluids and cefepime which were stopped when urine culture grew vijay glabata but no bacteria. Repeat cath UA still shows marked leukouria but culture grew vijay albicans. ID consult recommended treatment for prostatitis with 1 month of doxycycline. Patient was able to feed himself but needs full assist in transfer and amb ulation even with PT treatment for a week. Was supposed to go to [facility] for continued therapy but patient developed leukocytosis and increased confusion just prior to discharge. Assessment/Plan (1) Leukocytosis Status: Acute Comment: Sudden occurence on 02-16 suggestive of occult infections. Blood cultures negative so far. Status post amphotericin bladder washing for possible invasive fungal cystitis. Continue cefepime for possible pneumonitis. Continue doxycycline for prostatitis. (2) Pyuria Status: Acute Comment: Completed amphotericin bladder washing for possible invasive fungal cystitis. Will recheck UA, cx. (3) Dehydration Status: Acute Comment: Patient skipping meals when he has altered mental status. Continue IV fluids for now. (4) Sacral decubitus ulcer Status: Chronic Comment: Continue local wound care for small stage 2 sacral ulcers. (5) Weakness Status: Acute Comment: resuming physical therapy now that patient is more responsive. (6) Anxiety and depression Status: Chronic Comment: Patient appears more alert and responsive on lexapro, remeron and wellbutrin. Result Diagram: 02/24/19 0546 02/24/19 0442 Results 24hrs Laboratory Tests Test 02/24/19 04:42 02/24/19 05:46 02/24/19 13:28 Sodium Level 135 Potassium Level 4.2 Chloride Level 106 Carbon Dioxide Level 21 Anion Gap 8 Blood Urea Nitrogen 42 #H Creatinine 1.27 H Est Glomerular Filtrat Rate mL/min Glucose Level 91 Calcium Level 10.2 White Blood Count 14.2 H Red Blood Count 3.37 L Hemoglobin 9.2 L Hematocrit 29.5 L Mean Corpuscular Volume 87.5 Mean Corpuscular Hemoglobin 27.3 L Mean Corpuscular Hemoglobin Concent 31.2 L Red Cell Distribution Width 15.4 H Platelet Count 179 Mean Platelet Volume 12.1 H Immature Granulocytes % 0.600 H Neutrophils % 70.1 Lymphocytes % 13.1 L Monocytes % 12.3 H Eosinophils % 3.5 Basophils % 0.4 Nucleated Red Blood Cells % 0.0 Immature Granulocytes # 0.080 H Neutrophils # 10.0 H Lymphocytes # 1.9 Monocytes # 1.7 H Eosinophils # 0.5 Basophils # 0.1 Nucleated Red Blood Cells # 0.0 Urine Color YELLOW Urine Clarity CLOUDY A Urine pH 6.0 Urine Specific [place] 1.008 Urine Ketones NEGATIVE Urine Nitrite NEGATIVE Urine Bilirubin NEGATIVE Urine Urobilinogen NEGATIVE Urine Leukocyte Esterase 1+ H Urine Microscopic RBC 1 Urine Microscopic WBC 3 Urine Amorphous Crystals FEW A Urine Hemoglobin 1+ H Urine Glucose NEGATIVE Urine Total Protein NEGATIVE Subjective 24 Hr Interval Summary Constitutional: no complaints Exam/Review of Systems Exam Vitals Vital Signs Date Temp Pulse Resp B/P (MAP) Pulse Ox O2 O2 Flow FiO2 Time Delivery Rate 02/24/19 2.0 15:01 02/24/19 98.0 76 19 105/67 95 13:09 (80) 02/24/19 Nasal 08:15 Cannula 02/22/19 21 19:35 Intake and Output 02/23/19 02/23/19 02/24/19 1515:00 23:00 07:00 IntakeIntake Total 700 ml 520 ml 1330 ml OutputOutput Total 1450 ml 900 ml BalanceBalance 700 ml -930 ml 430 ml Constitutional: alert Head: normocephalic, atraumatic Respiratory: clear to auscultation Cardiovascular: regular rate and rhythm Gastrointestinal: soft, other Musculoskeletal: nl extremities to inspection (bilateral ostomies clean) Results Results 24hrs Laboratory Tests Test 02/24/19 04:42 02/24/19 05:46 02/24/19 13:28 Sodium Level 135 Potassium Level 4.2 Chloride Level 106 Carbon Dioxide Level 21 Anion Gap 8 Blood Urea Nitrogen 42 #H Creatinine 1.27 H Est Glomerular Filtrat Rate mL/min Glucose Level 91 Calcium Level 10.2 White Blood Count 14.2 H Red Blood Count 3.37 L Hemoglobin 9.2 L Hematocrit 29.5 L Mean Corpuscular Volume 87.5 Mean Corpuscular Hemoglobin 27.3 L Mean Corpuscular Hemoglobin Concent 31.2 L Red Cell Distribution Width 15.4 H Platelet Count 179 Mean Platelet Volume 12.1 H Immature Granulocytes % 0.600 H Neutrophils % 70.1 Lymphocytes % 13.1 L Monocytes % 12.3 H Eosinophils % 3.5 Basophils % 0.4 Nucleated Red Blood Cells % 0.0 Immature Granulocytes # 0.080 H Neutrophils # 10.0 H Lymphocytes # 1.9 Monocytes # 1.7 H Eosinophils # 0.5 Basophils # 0.1 Nucleated Red Blood Cells # 0.0 Urine Color YELLOW Urine Clarity CLOUDY A Urine pH 6.0 Urine Specific [place] 1.008 Urine Ketones NEGATIVE Urine Nitrite NEGATIVE Urine Bilirubin NEGATIVE Urine Urobilinogen NEGATIVE Urine Leukocyte Esterase 1+ H Urine Microscopic RBC 1 Urine Microscopic WBC 3 Urine Amorphous Crystals FEW A Urine Hemoglobin 1+ H Urine Glucose NEGATIVE Urine Total Protein NEGATIVE Medications Medication Current Medications Acetaminophen (Tylenol Tab) 650 mg Q4 PRN PO MILD PAIN(1-3)OR ELEVATED TEMP Last administered on 02/22/19 20:55; Admin Dose 650 MG; Start 02/06/19 at 00:00 Acetylcysteine (Mucomyst) 2 ml Q6H RESP THERAPY NEB Last administered on 02/24/19 07:53; Admin Dose 2 ML; Start 02/06/19 at 02:00 Apixaban (Eliquis) 2.5 mg BID PO Last administered on 02/24/19 09:11; Admin Dose 2.5 MG; Start 02/06/19 at 09:00 Atorvastatin Calcium (Lipitor) 20 mg QHS PO Last administered on 02/23/19 21:26; Admin Dose 20 MG; Start 02/06/19 at 21:00 Bupropion HCl (Wellbutrin Xl) 300 mg DAILY PO Last administered on 02/24/19 09:10; Admin Dose 300 MG; Start 02/06/19 at 09:00 Docusate Sodium (Colace) 100 mg QHS PO Last administered on 02/23/19 21:26; Admin Dose 100 MG; Start 02/06/19 at 21:00 Fluticasone/ Vilanterol (Breo Ellipta 200-25 Mcg Inh) 1 inh DAILY INH Last administered on 02/24/19 09:11; Admin Dose 1 INH; Start 02/06/19 at 09:00 Mirtazapine (Remeron) 15 mg HS PO Last administered on 02/23/19 21:27; Admin Dose 15 MG; Start 02/06/19 at 21:00 Pantoprazole (Protonix Tab) 40 mg AC BREAKFAST PO Last administered on 02/24/19 09:10; Admin Dose 40 MG; Start 02/06/19 at 07:20 IV Flush (NS 3 ml) 3 ml PER PROTOCOL IV Last administered on 02/06/19at 00:04; Admin Dose 3 ML; Start 02/06/19 at 00:00 Ondansetron HCl (Zofran Inj) 4 mg Q6H PRN IV NAUSEA/VOMITING; Start 02/06/19 at 00:00 Magnesium Hydroxide (Milk Of Mag) 30 ml DAILY PRN PO .CONSTIPATION; Start 02/06/19 at 00:00 Sodium Biphosphate/ Sodium Phosphate (Fleet Enema) 133 ml DAILY PRN [place] .CONSTIPATION; Start 02/06/19 at 00:00 Miscellaneous Information (Pending [facility] Order For Wound Care) This patient sawyer... PRN PRN XX WOUND CARE; Start 02/06/19 at 08:00 Albuterol/ Ipratropium (Duoneb) 3 ml Q6H RESP THERAPY HHN Last administered on 02/24/19 07:53; Admin Dose 3 ML; Start 02/06/19 at 08:30 Metoprolol Tartrate (Lopressor) 25 mg BID PO Last administered on 02/24/19 09:11; Admin Dose 25 MG; Start 02/09/19 at 21:00 Doxycycline Hyclate (Vibramycin) 100 mg BID PO Last administered on 02/24/19 09:11; Admin Dose 100 MG; Start 02/12/19 at 21:00 Guaifenesin (Robitussin Liquid Cup) 200 mg Q4H PRN PO COUGH; Start 02/18/19 at 18:00 Dextrose 1,000 ml @ 100 mls/hr Q10H IV Last administered on 02/24/19 14:37; Admin Dose 100 MLS/HR; Start 02/19/19 at 18:00 Cefepime HCl 50 ml @ 100 mls/hr Q24H IVPB Last administered on 4/28/19at 21:26; Admin Dose 100 MLS/HR; Start 02/19/19 at 21:00 Escitalopram Oxalate (Lexapro) 10 mg DAILY PO Last administered on 02/24/19at 09:11; Admin Dose 10 MG; Start 02/22/19 at 09:00 BREEZY FRIAS MD Feb 24, 2019 17:02
[2019-02-24 20:13] VITALS: BP 110/50; PULSE 80; RESP 18
[2019-02-24] MEDS: MIRTAZAPINE 15 MG TAB PO SCH (21:41)
[2019-02-24] MEDS: ATORVASTATIN 20 MG TAB PO SCH (21:41)
[2019-02-24] MEDS: CEFEPIME 1GM/50 ML (PMX) 50 ML IVPB SCH (21:41)
[2019-02-24] MEDS: DOCUSATE SODIUM 100 MG CAP PO SCH (21:41)
[2019-02-25] MEDS: DEXTROSE 5% 1,000 ML IV SCH ×3 (01:15→20:31)
[2019-02-25] MEDS: ACETYLCYSTEINE 20% 4 ML VIAL NEB SCH ×4 (01:41→20:12)
[2019-02-25] MEDS: ALBUTEROL/IPRATROPIUM (NEB) 3 ML AMP HHN SCH ×4 (01:41→20:12)
[2019-02-25 02:15] VITALS: BP 114/56; PULSE 74; RESP 18
--- NOTE | 2019-02-25 06:41 | CONS ---
Assessment/Plan Assessment/Plan Hospital Course (Demo Recall) 1) lethargy this seems to wax and wane pt's caregiver that last time he was in the hospital he got more lethargic from the meds he was given I doubt infection is causing his lethargy at this time 02/18 - pt less lethargic this a.m. but has confusion 2) pyuria initial urine cx grew 50k c.glabrata and repeat shows <10k of c.alb I doubt either one is the cause of his pyuria agree to stopping of cefepime since he has neg cx for bacteria x2 I doubt he has an active UTI he may have some prostatitis and a trial of doxycycline to treat atypicals might be of benefit I will start doxycycline to treat possible prostatitis and if his pyuria does not resolve then I would recommend urology consult 02/13 - pt tolerating his doxycycline so far, continue for one month and re-check u/a, urine cx 1 week after he is done with his antibiotics 02/17 - due to elevated WBC will re-order u/a and urine cx 02/18 - pyuria persists urine cx has 5K colonies of likely enterococcus which is not significant continue doxycycline at present consider urology consult I will order urine for AFB cx 02/19 - urine cx from 02/17 only had 5k of enterococcus urine cx from 02/[address] Hancock noted pus in his urine when he urinated and believes pt retains small amout of pus in bladder due to small amout of residual urine left when he urinates pt has been placed on ampho B bladder irrigation, if repeat urine cx from yesterday remains neg can d/c the ampho B doubt pt would benefit from IV ampho B, if vijay is present the bladder irrigation should be sufficient continue with doxycycline CT shows no change in hyperdense mass to L lower kidney 02/20 - ur cx has >100k of yeast continue with ampho B irrigation (5 days as originally planned by Dr. Hancock) 02/24 - pt's 5th day of ampho B bladder irrigation was finished yesterday evening will order repeat u/a and urine cx 02/25 - repeat u/a is good, no significant pyuria/hematuria continue with doxycycline 3) COPD breathing is currently stable 02/17- CXR does not show raimundo pneumonia, his O2 sats have been stable will order procalcitonin, doubt he has pneumonia 02/18 - breathing is stable and pt appears comfortable procalcitonin is pending WBC is down a bit today CT chest is pending 02/19 - CT chest has smaller amount of infiltrates to lower lungs, doubt he has active pneumonia 02/20 - stable, procalcitonin is pending 02/21 - cefepime was started by Dr. Frias if procalcitonin comes back neg to d/c cefepime then 02/24 - procalcitonin was marginally elevated on cefepime, to repeat procalcitonin today 02/25 - procalcitonin now done in house, to order it for tomorrow a.m. to see if can d/c cefepime 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 5) hx of DVT 6) CAD 7) HTN 8) hx of CVA 9) leukocytosis 02/17 - unexplained, no obvious source of infection CXR shows atelectasis/small pleural effusions and no change in O2 sats will order procalcitonin, u/a and urine cx 02/18 - urine cx only has 5k colonies of likely enterococcus which is not significant breathing is stable no diarrhea WBC a bit improved no additional antibiotics at this time CT chest/abd/pelv is pending 02/20 - RUE is swollen, will order RUE venous doppler continue with ampho B bladder irrigation and doxycycline await procalcitonin if elevated will start pneumonia treatment repeat urine cx has >100k yeast but doubt this is the source for his leukocytosis check cbc, cmp in a.m. pt has persistent hypercalcemia 02/21 - RUE venous doppler was neg and swelling is less doubt he has cellulitis and doxycycline has excellent staph coverage, to d/c vanco on cefepime for possible pneumonia, if procalcitonin on 02/18 comes back neg then will d/c cefepime pt to complete his ampho B bladder irrigation after dose on 02/22 02/23 - improved WBC today pt has RUE IV infiltrated with small pustules and redness noted I have ordered cx of these pustules, continue with cefepime/doxy at present repeat u/a and urine cx now that ampho B bladder irrigation was completed last evening repeat procalcitonin this a.m. Consultation Date/Type/Reason Admit Date/Time Feb 05, 2019 at 20:14 Initial Consult Date 02/12/19 Type of Consult ID Requesting Provider: BREEZY FRIAS MD Date/Time of Note DATE: 02/25/19 TIME: 06:37 24 HR Interval Summary Free Text/Dictation spoke to nurse, no change po intake is poor but does take his meds crushed no V, D no change to R arm according to nurse Exam/Review of Systems Exam Vitals Vital Signs Date Temp Pulse Resp B/P (MAP) Pulse Ox O2 O2 Flow FiO2 Time Delivery Rate 02/25/19 97.6 74 18 114/56 96 Nasal 02:15 (75) Cannula 02/25/19 2.0 01:42 02/22/19 21 19:35 Intake and Output 02/24/19 02/24/19 02/25/19 1515:00 23:00 07:00 IntakeIntake Total 600 ml 400 ml 1550 ml OutputOutput Total 200 ml 80 ml BalanceBalance 400 ml 320 ml 1550 ml Constitutional: non-verbal Respiratory: clear to auscultation Cardiovascular: regular rate and rhythm Gastrointestinal: soft, non-tender Extremities: other (R forearm is bandaged but no redness or increase heat noted beyond it) Results Result Diagram: 02/25/19 0511 02/24/19 0442 Results 24hrs Laboratory Tests Test 02/24/19 13:28 02/25/19 05:11 Urine Color YELLOW Urine Clarity CLOUDY A Urine pH 6.0 Urine Specific [place] 1.008 Urine Ketones NEGATIVE Urine Nitrite NEGATIVE Urine Bilirubin NEGATIVE Urine Urobilinogen NEGATIVE Urine Leukocyte Esterase 1+ H Urine Microscopic RBC 1 Urine Microscopic WBC 3 Urine Amorphous Crystals FEW A Urine Hemoglobin 1+ H Urine Glucose NEGATIVE Urine Total Protein NEGATIVE White Blood Count 14.7 H Red Blood Count 3.58 L Hemoglobin 9.8 L Hematocrit 30.6 L Mean Corpuscular Volume 85.5 Mean Corpuscular Hemoglobin 27.4 L Mean Corpuscular Hemoglobin Concent 32.0 Red Cell Distribution Width 15.3 H Platelet Count 198 Mean Platelet Volume 12.2 H Immature Granulocytes % 0.500 H Neutrophils % 70.1 Lymphocytes % 12.9 L Monocytes % 12.2 H Eosinophils % 4.0 Basophils % 0.3 Nucleated Red Blood Cells % 0.0 Immature Granulocytes # 0.080 H Neutrophils # 10.3 H Lymphocytes # 1.9 Monocytes # 1.8 H Eosinophils # 0.6 H Basophils # 0.1 Nucleated Red Blood Cells # 0.0 Medications Medication Current Medications Acetaminophen (Tylenol Tab) 650 mg Q4 PRN PO MILD PAIN(1-3)OR ELEVATED TEMP Last administered on 02/22/19 20:55; Admin Dose 650 MG; Start 02/06/19 at 00:00 Acetylcysteine (Mucomyst) 2 ml Q6H RESP THERAPY NEB Last administered on 02/25/19 01:41; Admin Dose 2 ML; Start 02/06/19 at 02:00 Apixaban (Eliquis) 2.5 mg BID PO Last administered on 02/24/19 21:41; Admin Dose 2.5 MG; Start 02/06/19 at 09:00 Atorvastatin Calcium (Lipitor) 20 mg QHS PO Last administered on 02/24/19 21:41; Admin Dose 20 MG; Start 02/06/19 at 21:00 Bupropion HCl (Wellbutrin Xl) 300 mg DAILY PO Last administered on 02/24/19 09:10; Admin Dose 300 MG; Start 02/06/19 at 09:00 Docusate Sodium (Colace) 100 mg QHS PO Last administered on 02/24/19 21:41; Admin Dose 100 MG; Start 02/06/19 at 21:00 Fluticasone/ Vilanterol (Breo Ellipta 200-25 Mcg Inh) 1 inh DAILY INH Last administered on 02/24/19 09:11; Admin Dose 1 INH; Start 02/06/19 at 09:00 Mirtazapine (Remeron) 15 mg HS PO Last administered on 02/24/19 21:41; Admin Dose 15 MG; Start 02/06/19 at 21:00 Pantoprazole (Protonix Tab) 40 mg AC BREAKFAST PO Last administered on 02/24/19 09:10; Admin Dose 40 MG; Start 02/06/19 at 07:20 IV Flush (NS 3 ml) 3 ml PER PROTOCOL IV Last administered on 02/06/19 00:04; Admin Dose 3 ML; Start 02/06/19 at 00:00 Ondansetron HCl (Zofran Inj) 4 mg Q6H PRN IV NAUSEA/VOMITING; Start 02/06/19 at 00:00 Magnesium Hydroxide (Milk Of Mag) 30 ml DAILY PRN PO .CONSTIPATION; Start 02/06/19 at 00:00 Sodium Biphosphate/ Sodium Phosphate (Fleet Enema) 133 ml DAILY PRN [place] .CONSTIPATION; Start 02/06/19 at 00:00 Miscellaneous Information [facility] This patient sawyer... PRN PRN XX WOUND CARE; Start 02/06/19 at 08:00 Albuterol/ Ipratropium (Duoneb) 3 ml Q6H RESP THERAPY HHN Last administered on 02/25/19 01:41; Admin Dose 3 ML; Start 02/06/19 at 08:30 Metoprolol Tartrate (Lopressor) 25 mg BID PO Last administered on 02/24/19 21:41; Admin Dose 25 MG; Start 02/09/19 at 21:00 Doxycycline Hyclate (Vibramycin) 100 mg BID PO Last administered on 02/24/19 21:41; Admin Dose 100 MG; Start 02/12/19 at 21:00 Guaifenesin (Robitussin Liquid Cup) 200 mg Q4H PRN PO COUGH; Start 02/18/19 at 18:00 Dextrose 1,000 ml @ 100 mls/hr Q10H IV Last administered on 02/25/19 01:15; Admin Dose 100 MLS/HR; Start 02/19/19 at 18:00 Cefepime HCl 50 ml @ 100 mls/hr Q24H IVPB Last administered on 02/24/19 21:41; Admin Dose 100 MLS/HR; Start 02/19/19 at 21:00 Escitalopram Oxalate (Lexapro) 10 mg DAILY PO Last administered on 02/24/19 09:11; Admin Dose 10 MG; Start 02/22/19 at 09:00 MIGUELITO VASQUEZ MD Feb 25, 2019 06:41
[2019-02-25 08:23] VITALS: BP 154/70; PULSE 73; RESP 18
[2019-02-25] MEDS: ESCITALOPRAM 10 MG TAB PO SCH (08:34)
[2019-02-25] MEDS: PANTOPRAZOLE (EC) 40 MG TAB PO SCH (08:34)
[2019-02-25] MEDS: BUPROPION (XL) 150 MG TAB PO SCH (08:34)
[2019-02-25] MEDS: METOPROLOL 25 MG TAB PO SCH ×2 (08:35→20:32)
[2019-02-25] MEDS: APIXABAN 5 MG TABLET PO SCH ×2 (08:35→20:32)
[2019-02-25] MEDS: DOXYCYCLINE 100 MG TAB PO SCH ×2 (08:35→20:32)
--- NOTE | 2019-02-25 08:35 | CONS ---
Consult Date/Type/Reason Admit Date/Time Feb 05, 2019 at 20:14 Initial Consult Date 02/18/19 Type of Consultation: urology Reason for Consultation Pyuria Requesting Provider: BREEZY FRIAS MD Date/Time of Note DATE: 02/25/19 TIME: 08:32 Subjective Patient is resting comfortable and no events overnight. Objective Vitals Vital Signs Date Temp Pulse Resp B/P (MAP) Pulse Ox O2 O2 Flow FiO2 Time Delivery Rate 02/25/19 97.6 74 18 114/56 96 Nasal 02:15 (75) Cannula 02/25/19 2.0 01:42 02/22/19 21 19:35 Intake and Output 02/24/19 02/24/19 02/25/19 1515:00 23:00 07:00 IntakeIntake Total 600 ml 400 ml 1550 ml OutputOutput Total 200 ml 80 ml 550 ml BalanceBalance 400 ml 320 ml 1000 ml Exam Patient has been voiding and the urine is clear. Urine analysis showed much improvement and no significant pyuria. UA showed 1 RBC per high-power field and 3 WBCs per high-power field Results/Medications Result Diagram: 02/25/19 0511 02/25/19 0511 Results 24 hrs Laboratory Tests Test 02/24/19 13:28 02/25/19 05:11 Urine Color YELLOW Urine Clarity CLOUDY A Urine pH 6.0 Urine Specific [place] 1.008 Urine Ketones NEGATIVE Urine Nitrite NEGATIVE Urine Bilirubin NEGATIVE Urine Urobilinogen NEGATIVE Urine Leukocyte Esterase 1+ H Urine Microscopic RBC 1 Urine Microscopic WBC 3 Urine Amorphous Crystals FEW A Urine Hemoglobin 1+ H Urine Glucose NEGATIVE Urine Total Protein NEGATIVE White Blood Count 14.7 H Red Blood Count 3.58 L Hemoglobin 9.8 L Hematocrit 30.6 L Mean Corpuscular Volume 85.5 Mean Corpuscular Hemoglobin 27.4 L Mean Corpuscular Hemoglobin Concent 32.0 Red Cell Distribution Width 15.3 H Platelet Count 198 Mean Platelet Volume 12.2 H Immature Granulocytes % 0.500 H Neutrophils % 70.1 Lymphocytes % 12.9 L Monocytes % 12.2 H Eosinophils % 4.0 Basophils % 0.3 Nucleated Red Blood Cells % 0.0 Immature Granulocytes # 0.080 H Neutrophils # 10.3 H Lymphocytes # 1.9 Monocytes # 1.8 H Eosinophils # 0.6 H Basophils # 0.1 Nucleated Red Blood Cells # 0.0 Sodium Level 133 L Potassium Level 4.1 Chloride Level 102 Carbon Dioxide Level 20 L Anion Gap 11 Blood Urea Nitrogen 41 H Creatinine 1.31 H Est Glomerular Filtrat Rate mL/min Glucose Level 111 Calcium Level 10.5 H Home Meds Active Scripts Ciprofloxacin Hcl* (Ciprofloxacin Hcl*) 250 Mg Tablet, 250 MG PO BID for 7 Days, #14 TAB Prov:BREEZY FRIAS MD 01/31/19 Guaifenesin (Guaifenesin) 600 Mg Tablet.sa, 600 MG PO BID for 30 Days, #60 Prov:BREEZY FRIAS MD 01/31/19 Acetylcysteine* (Mucomyst*) 4 Ml Soln, 2 ML NEB Q6H RESP THERAPY for 30 Days, #1 BOTTLE Prov:BREEZY FRIAS MD 01/31/19 Bupropion Hcl* (Bupropion XL*) 150 Mg Tab.er.24h, 300 MG PO DAILY for 30 Days, #30 Prov:BREEZY FRIAS MD 01/31/19 Reported Medications Fluticasone/Vilanterol (Breo Ellipta 200-25 Mcg INH) 1 Each Blst.w.dev, 1 PUFF INHALATION DAILY, #1 INHALER 01/09/19 Diltiazem Hcl (Diltiazem) 120 Mg Capsr, 120 MG PO QAM, #30 CAP 01/09/19 Pantoprazole* (Pantoprazole*) 40 Mg Tablet.dr, 40 MG PO AC BREAKFAST, TAB 01/09/19 Mirtazapine* (Mirtazapine*) 15 Mg Tablet, 15 MG PO HS, TAB 01/09/19 Metoprolol Tartrate* (Lopressor*) 50 Mg Tab, 50 MG PO BID, #60 TAB 01/09/19 Docusate Sodium* (Colace*) 100 Mg Capsule, 100 MG PO QHS, #30 CAP 01/09/19 Diazepam* (Diazepam*) 2 Mg Tablet, 2 MG PO QHS, TAB 01/09/19 Atorvastatin Calcium* (Atorvastatin Calcium*) 20 Mg Tablet, 20 MG PO QHS, #30 TAB 01/09/19 Acetaminophen* (Acetaminophen*) 325 Mg Tablet, 650 MG PO NEEDED PRN for PAIN AND OR ELEVATED TEMP, #30 TAB 01/09/19 Apixaban* (Eliquis*) 5 Mg Tablet, 5 MG PO BID, TAB 01/09/19 Medications Current Medications Acetaminophen (Tylenol Tab) 650 mg Q4 PRN PO MILD PAIN(1-3)OR ELEVATED TEMP Last administered on 02/22/19 20:55; Admin Dose 650 MG; Start 02/06/19 at 00:00 Acetylcysteine (Mucomyst) 2 ml Q6H RESP THERAPY NEB Last administered on 02/25/19 01:41; Admin Dose 2 ML; Start 02/06/19 at 02:00 Apixaban (Eliquis) 2.5 mg BID PO Last administered on 02/24/19 21:41; Admin Dose 2.5 MG; Start 02/06/19 at 09:00 Atorvastatin Calcium (Lipitor) 20 mg QHS PO Last administered on 02/24/19 21:41; Admin Dose 20 MG; Start 02/06/19 at 21:00 Bupropion HCl (Wellbutrin Xl) 300 mg DAILY PO Last administered on 02/24/19 09:10; Admin Dose 300 MG; Start 02/06/19 at 09:00 Docusate Sodium (Colace) 100 mg QHS PO Last administered on 02/24/19 21:41; Admin Dose 100 MG; Start 02/06/19 at 21:00 Fluticasone/ Vilanterol (Breo Ellipta 200-25 Mcg Inh) 1 inh DAILY INH Last administered on 02/24/19 09:11; Admin Dose 1 INH; Start 02/06/19 at 09:00 Mirtazapine (Remeron) 15 mg HS PO Last administered on 02/24/19 21:41; Admin Dose 15 MG; Start 02/06/19 at 21:00 Pantoprazole (Protonix Tab) 40 mg AC BREAKFAST PO Last administered on 02/24/19 09:10; Admin Dose 40 MG; Start 02/06/19 at 07:20 IV Flush (NS 3 ml) 3 ml PER PROTOCOL IV Last administered on 02/06/19 00:04; Admin Dose 3 ML; Start 02/06/19 at 00:00 Ondansetron HCl (Zofran Inj) 4 mg Q6H PRN IV NAUSEA/VOMITING; Start 02/06/19 at 00:00 Magnesium Hydroxide (Milk Of Mag) 30 ml DAILY PRN PO .CONSTIPATION; Start 02/06/19 at 00:00 Sodium Biphosphate/ Sodium Phosphate (Fleet Enema) 133 ml DAILY PRN [place] . CONSTIPATION; Start 02/06/19 at 00:00 Miscellaneous Information (Pending [facility] Order For Wound Care) This patient sawyer... PRN PRN XX WOUND CARE; Start 02/06/19 at 08:00 Albuterol/ Ipratropium (Duoneb) 3 ml Q6H RESP THERAPY HHN Last administered on 02/25/19 01:41; Admin Dose 3 ML; Start 02/06/19 at 08:30 Metoprolol Tartrate (Lopressor) 25 mg BID PO Last administered on 02/24/19 21:41; Admin Dose 25 MG; Start 02/09/19 at 21:00 Doxycycline Hyclate (Vibramycin) 100 mg BID PO Last administered on 02/24/19 21:41; Admin Dose 100 MG; Start 02/12/19 at 21:00 Guaifenesin (Robitussin Liquid Cup) 200 mg Q4H PRN PO COUGH; Start 02/18/19 at 18:00 Dextrose 1,000 ml @ 100 mls/hr Q10H IV Last administered on 02/25/19 01:15; Admin Dose 100 MLS/HR; Start 02/19/19 at 18:00 Cefepime HCl 50 ml @ 100 mls/hr Q24H IVPB Last administered on 02/24/19 21:41; Admin Dose 100 MLS/HR; Start 02/19/19 at 21:00 Escitalopram Oxalate (Lexapro) 10 mg DAILY PO Last administered on 02/24/19 09:11; Admin Dose 10 MG; Start 02/22/19 at 09:00 Assessment/Plan Hospital Course (Demo Recall) 83-year-old male was admitted to the hospital because of progressive lethargy. He was unable to wake up to take his medications or eat. Work up in the emergency room shows elevated WBC, BUN/creatinine and abnormal urine suggestive of dehydration and urosepsis. The patient was treated was on the antibiotics yet he continued to have pyuria and is urine culture did show once C andida glabrata and another time Enriqueta albicans with mixed gram-positive organisms. Repeat urine culture on 02/18/2019 grew Enriqueta glabrata. The amphotericin bladder irrigation was discontinued on 02/22/2019 after running for 5 days. The Lazaor catheter has been removed. Patient has been voiding well and the urine is clear and the urine analysis showed only 3 WBCs per high-power field. I will sign off. Thank you for giving me the opportunity to help in his care SARITHA OWEN MD Feb 25, 2019 08:35
[2019-02-25] MEDS: FLUTICASONE/VILANTEROL 200-25 INH DEVICE INH SCH (08:36)
[2019-02-25 15:23] VITALS: BP 120/55; PULSE 84; RESP 18
--- NOTE | 2019-02-25 17:27 | PN ---
Date/Time of Note Date/Time of Note DATE: 02/25/19 TIME: 17:18 Assessment/Plan VTE Prophylaxis Risk score (from [facility] [place])>0 risk: 4 SCD applied (from [facility] [place]): Yes Pharmacological prophylaxis: apixaban Lines/Catheters IV Catheter Type (from [facility]): Peripheral IV Urinary Cath still in place: No Assessment/Plan Hospital Course Patient was admitted with altered mental status and acute dehydration and leukouria. His mental status and dehydration improved with IV fluids and cefepime which were stopped when urine culture grew vijay glabata but no bacteria. Repeat cath UA still shows marked leukouria but culture grew vijay albicans. ID consult recommended treatment for prostatitis with 1 month of doxycycline. Patient was able to feed himself but needs full assist in transfer and ambu lation even with PT treatment for a week. Was supposed to go to [facility] for continued therapy but patient developed leukocytosis and increased confusion just prior to discharge. Assessment/Plan (1) Leukocytosis Status: Acute Comment: Sudden occurence on 02-16-2019 suggestive of occult infections. Blood cultures negative so far. Urine culture showed vijay. Right elbow skin culture growing gm neg rods. Status post amphotericin bladder washing for possible invasive fungal cystitis. Continue cefepime for possible pneumonitis and celluilits. Continue doxycycline for prostatitis. (2) Pyuria Status: Resolved Comment: Completed amphotericin bladder washing for invasive fungal cystitis. Recheck UA shows minimal WBC's in urine. (3) Dehydration Status: Acute Comment: Patient skipping meals when he has altered mental status. Continue IV fluids for now. (4) Sacral decubitus ulcer Status: Chronic Comment: Continue local wound care for small stage 2 sacral ulcers. (5) Weakness Status: Acute Comment: resuming physical therapy when patient is more responsive. (6) Anxiety and depression Status: Chronic Comment: Patient appears more alert and responsive on lexapro, remeron and wellbutrin. Result Diagram: 02/25/19 0511 02/25/19 0511 Results 24hrs Laboratory Tests Test 02/25/19 05:11 White Blood Count 14.7 H Red Blood Count 3.58 L Hemoglobin 9.8 L Hematocrit 30.6 L Mean Corpuscular Volume 85.5 Mean Corpuscular Hemoglobin 27.4 L Mean Corpuscular Hemoglobin Concent 32.0 Red Cell Distribution Width 15.3 H Platelet Count 198 Mean Platelet Volume 12.2 H Immature Granulocytes % 0.500 H Neutrophils % 70.1 Lymphocytes % 12.9 L Monocytes % 12.2 H Eosinophils % 4.0 Basophils % 0.3 Nucleated Red Blood Cells % 0.0 Immature Granulocytes # 0.080 H Neutrophils # 10.3 H Lymphocytes # 1.9 Monocytes # 1.8 H Eosinophils # 0.6 H Basophils # 0.1 Nucleated Red Blood Cells # 0.0 Sodium Level 133 L Potassium Level 4.1 Chloride Level 102 Carbon Dioxide Level 20 L Anion Gap 11 Blood Urea Nitrogen 41 H Creatinine 1.31 H Est Glomerular Filtrat Rate mL/min Glucose Level 111 Calcium Level 10.5 H Subjective 24 Hr Interval Summary Free Text/Dictation Patient asleep but arousable, no complaint of pain. Exam/Review of Systems Exam Vitals Vital Signs Date Temp Pulse Resp B/P (MAP) Pulse Ox O2 O2 Flow FiO2 Time Delivery Rate 02/25/19 2.0 16:00 02/25/19 73 20 93 Nasal 16:00 Cannula 02/25/19 98.3 120/55 15:23 (76) 02/22/19 21 19:35 Intake and Output 02/24/19 02/24/19 02/25/19 1515:00 23:00 07:00 IntakeIntake Total 600 ml 400 ml 1550 ml OutputOutput Total 200 ml 80 ml 550 ml BalanceBalance 400 ml 320 ml 1000 ml Constitutional: alert Psych: no complaints Head: normocephalic, atraumatic ENMT: nl external ears & nose Respiratory: clear to auscultation, normal air movement Cardiovascular: regular rate and rhythm Gastrointestinal: soft, non-tender, other (ostomies clean) Musculoskeletal: nl extremities to inspection Skin: other (Right inner elbow rednesss and small scattered pustules) Results Results 24hrs Laboratory Tests Test 02/25/19 05:11 White Blood Count 14.7 H Red Blood Count 3.58 L Hemoglobin 9.8 L Hematocrit 30.6 L Mean Corpuscular Volume 85.5 Mean Corpuscular Hemoglobin 27.4 L Mean Corpuscular Hemoglobin Concent 32.0 Red Cell Distribution Width 15.3 H Platelet Count 198 Mean Platelet Volume 12.2 H Immature Granulocytes % 0.500 H Neutrophils % 70.1 Lymphocytes % 12.9 L Monocytes % 12.2 H Eosinophils % 4.0 Basophils % 0.3 Nucleated Red Blood Cells % 0.0 Immature Granulocytes # 0.080 H Neutrophils # 10.3 H Lymphocytes # 1.9 Monocytes # 1.8 H Eosinophils # 0.6 H Basophils # 0.1 Nucleated Red Blood Cells # 0.0 Sodium Level 133 L Potassium Level 4.1 Chloride Level 102 Carbon Dioxide Level 20 L Anion Gap 11 Blood Urea Nitrogen 41 H Creatinine 1.31 H Est Glomerular Filtrat Rate mL/min Glucose Level 111 Calcium Level 10.5 H Medications Medication Current Medications Acetaminophen (Tylenol Tab) 650 mg Q4 PRN PO MILD PAIN(1-3)OR ELEVATED TEMP Last administered on 02/22/19 20:55; Admin Dose 650 MG; Start 02/06/19 at 00:00 Acetylcysteine (Mucomyst) 2 ml Q6H RESP THERAPY NEB Last administered on 02/25/19 15:59; Admin Dose 2 ML; Start 02/06/19 at 02:00 Apixaban (Eliquis) 2.5 mg BID PO Last administered on 02/25/19 08:35; Admin Dose 2.5 MG; Start 02/06/19 at 09:00 Atorvastatin Calcium (Lipitor) 20 mg QHS PO Last administered on 02/24/19 21:41; Admin Dose 20 MG; Start 02/06/19 at 21:00 Bupropion HCl (Wellbutrin Xl) 300 mg DAILY PO Last administered on 02/25/19 08:34; Admin Dose 300 MG; Start 02/06/19 at 09:00 Docusate Sodium (Colace) 100 mg QHS PO Last administered on 02/24/19 21:41; Admin Dose 100 MG; Start 02/06/19 at 21:00 Fluticasone/ Vilanterol (Breo Ellipta 200-25 Mcg Inh) 1 inh DAILY INH Last administered on 02/25/19 08:36; Admin Dose 1 INH; Start 02/06/19 at 09:00 Mirtazapine (Remeron) 15 mg HS PO Last administered on 02/24/19 21:41; Admin Dose 15 MG; Start 02/06/19 at 21:00 Pantoprazole (Protonix Tab) 40 mg AC BREAKFAST PO Last administered on 02/25/19 08:34; Admin Dose 40 MG; Start 02/06/19 at 07:20 IV Flush (NS 3 ml) 3 ml PER PROTOCOL IV Last administered on 02/06/19 00:04; Admin Dose 3 ML; Start 02/06/19 at 00:00 Ondansetron HCl (Zofran Inj) 4 mg Q6H PRN IV NAUSEA/VOMITING; Start 02/06/19 at 00:00 Magnesium Hydroxide (Milk Of Mag) 30 ml DAILY PRN PO .CONSTIPATION; Start 02/06/19 at 00:00 Sodium Biphosphate/ Sodium Phosphate (Fleet Enema) 133 ml DAILY PRN [place] .CONSTIPATION; Start 02/06/19 at 00:00 Miscellaneous Information (Pending [facility] Order For Wound Care) This patient sawyer... PRN PRN XX WOUND CARE; Start 02/06/19 at 08:00 Albuterol/ Ipratropium (Duoneb) 3 ml Q6H RESP THERAPY HHN Last administered on 02/25/19 15:59; Admin Dose 3 ML; Start 02/06/19 at 08:30 Metoprolol Tartrate (Lopressor) 25 mg BID PO Last administered on 02/25/19 08:35; Admin Dose 25 MG; Start 02/09/19 at 21:00 Doxycycline Hyclate (Vibramycin) 100 mg BID PO Last administered on 02/25/19 08:35; Admin Dose 100 MG; Start 02/12/19 at 21:00 Guaifenesin (Robitussin Liquid Cup) 200 mg Q4H PRN PO COUGH; Start 02/18/19 at 18:00 Dextrose 1,000 ml @ 100 mls/hr Q10H IV Last administered on 02/25/19 10:42; Admin Dose 100 MLS/HR; Start 02/19/19 at 18:00 Cefepime HCl 50 ml @ 100 mls/hr Q24H IVPB Last administered on 02/24/19 21:41; Admin Dose 100 MLS/HR; Start 02/19/19 at 21:00 Escitalopram Oxalate (Lexapro) 10 mg DAILY PO Last administered on 02/25/19 08:34; Admin Dose 10 MG; Start 02/22/19 at 09:00 BREEZY FRIAS MD Feb 25, 2019 17:27
[2019-02-25] MEDS: BALSAM PERU/CASTOR OIL 60 GM TUBE TOP SCH ×2 (18:23→20:33)
[2019-02-25] MEDS: MEGESTROL (40 MG/ML) 10ML CUP PO SCH (19:39)
[2019-02-25 20:01] VITALS: BP 132/87; PULSE 75; RESP 18
[2019-02-25] MEDS: DOCUSATE SODIUM 100 MG CAP PO SCH (20:32)
[2019-02-25] MEDS: MIRTAZAPINE 15 MG TAB PO SCH (20:32)
[2019-02-25] MEDS: ATORVASTATIN 20 MG TAB PO SCH (20:32)
[2019-02-25] MEDS: CEFEPIME 1GM/50 ML (PMX) 50 ML IVPB SCH (20:34)
[2019-02-26] MEDS: ALBUTEROL/IPRATROPIUM (NEB) 3 ML AMP HHN SCH ×4 (01:05→20:46)
[2019-02-26] MEDS: ACETYLCYSTEINE 20% 4 ML VIAL NEB SCH ×4 (01:10→20:46)
[2019-02-26 02:35] VITALS: BP 127/64; PULSE 88; RESP 18
[2019-02-26] MEDS: DEXTROSE 5% 1,000 ML IV SCH ×3 (06:48→20:36)
[2019-02-26 07:19] VITALS: BP 127/75; PULSE 88; RESP 18
--- NOTE | 2019-02-26 07:47 | CONS ---
Assessment/Plan Assessment/Plan Hospital Course (Demo Recall) 1) lethargy this seems to wax and wane pt's caregiver that last time he was in the hospital he got more lethargic from the meds he was given I doubt infection is causing his lethargy at this time 02/18 - pt less lethargic this a.m. but has confusion 2) pyuria initial urine cx grew 50k c.glabrata and repeat shows <10k of c.alb I doubt either one is the cause of his pyuria agree to stopping of cefepime since he has neg cx for bacteria x2 I doubt he has an active UTI he may have some prostatitis and a trial of doxycycline to treat atypicals might be of benefit I will start doxycycline to treat possible prostatitis and if his pyuria does not resolve then I would recommend urology consult 02/13 - pt tolerating his doxycycline so far, continue for one month and re-check u/a, urine cx 1 week after he is done with his antibiotics 02/17 - due to elevated WBC will re-order u/a and urine cx 02/18 - pyuria persists urine cx has 5K colonies of likely enterococcus which is not significant continue doxycycline at present consider urology consult I will order urine for AFB cx 02/19 - urine cx from 02/17 only had 5k of enterococcus urine cx from 02/[address] Hancock noted pus in his urine when he urinated and believes pt retains small amout of pus in bladder due to small amout of residual urine left when he urinates pt has been placed on ampho B bladder irrigation, if repeat urine cx from yesterday remains neg can d/c the ampho B doubt pt would benefit from IV ampho B, if vijay is present the bladder irrigation should be sufficient continue with doxycycline CT shows no change in hyperdense mass to L lower kidney 02/20 - ur cx has >100k of yeast continue with ampho B irrigation (5 days as originally planned by Dr. Hancock) 02/24 - pt's 5th day of ampho B bladder irrigation was finished yesterday evening will order repeat u/a and urine cx 02/25 - repeat u/a is good, no significant pyuria/hematuria continue with doxycycline 02/26 - urine cx is negative continue with doxycycline thru 03/13 3) COPD breathing is currently stable 02/17- CXR does not show raimundo pneumonia, his O2 sats have been stable will order procalcitonin, doubt he has pneumonia 02/18 - breathing is stable and pt appears comfortable procalcitonin is pending WBC is down a bit today CT chest is pending 02/19 - CT chest has smaller amount of infiltrates to lower lungs, doubt he has active pneumonia 02/20 - stable, procalcitonin is pending 02/21 - cefepime was started by Dr. Frias if procalcitonin comes back neg to d/c cefepime then 02/24 - procalcitonin was marginally elevated on cefepime, to repeat procalcitonin today 02/25 - procalcitonin now done in house, to order it for tomorrow a.m. to see if can d/c cefepime 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 5) hx of DVT 6) CAD 7) HTN 8) hx of CVA 9) leukocytosis 02/17 - unexplained, no obvious source of infection CXR shows atelectasis/small pleural effusions and no change in O2 sats will order procalcitonin, u/a and urine cx 02/18 - urine cx only has 5k colonies of likely enterococcus which is not significant breathing is stable no diarrhea WBC a bit improved no additional antibiotics at this time CT chest/abd/pelv is pending 02/20 - RUE is swollen, will order RUE venous doppler continue with ampho B bladder irrigation and doxycycline await procalcitonin if elevated will start pneumonia treatment repeat urine cx has >100k yeast but doubt this is the source for his leukocytosis check cbc, cmp in a.m. pt has persistent hypercalcemia 02/21 - RUE venous doppler was neg and swelling is less doubt he has cellulitis and doxycycline has excellent staph coverage, to d/c vanco on cefepime for possible pneumonia, if procalcitonin on 02/18 comes back neg then will d/c cefepime pt to complete his ampho B bladder irrigation after dose on 02/22 02/23 - improved WBC today pt has RUE IV infiltrated with small pustules and redness noted I have ordered cx of these pustules, continue with cefepime/doxy at present repeat u/a and urine cx now that ampho B bladder irrigation was completed last evening repeat procalcitonin this a.m. 02/26 - improved urine cx is neg wound cx from former IV site is growing e.coli+esbl, sensitive to cefepime, continue this for another 4 days 10) R forearm IV site infection 02/26 - due to e.coli+ESBL blood cx were negative though continue cefepime thru 03/01 Consultation Date/Type/Reason Admit Date/Time Feb 05, 2019 at 20:14 Initial Consult Date 02/12/19 Type of Consult ID Requesting Provider: BREEZY FRIAS MD Date/Time of Note DATE: 02/26/19 TIME: 07:43 24 HR Interval Summary Free Text/Dictation no new problems Exam/Review of Systems Exam Vitals Vital Signs Date Temp Pulse Resp B/P (MAP) Pulse Ox O2 O2 Flow FiO2 Time Delivery Rate 02/26/19 98.1 88 18 127/75 99 Room Air 07:19 (92) 02/26/19 2.0 01:05 02/22/19 21 19:35 Intake and Output 02/25/19 02/25/19 02/26/19 1515:00 23:00 07:00 IntakeIntake Total 1650 ml 2200 ml OutputOutput Total 300 ml 300 ml BalanceBalance -300 ml 1650 ml 1900 ml Constitutional: alert Respiratory: clear to auscultation Cardiovascular: regular rate and rhythm Gastrointestinal: soft, non-tender Extremities: other (R forearm, has skin breakdown, minimal drainage, still some redness to skin) Results Result Diagram: 02/26/19 0435 02/25/19 0511 Results 24hrs Laboratory Tests Test 02/26/19 04:35 White Blood Count 12.9 H Red Blood Count 3.35 L Hemoglobin 9.1 L Hematocrit 28.2 L Mean Corpuscular Volume 84.2 Mean Corpuscular Hemoglobin 27.2 L Mean Corpuscular Hemoglobin Concent 32.3 Red Cell Distribution Width 15.3 H Platelet Count 187 Mean Platelet Volume 12.5 H Immature Granulocytes % 0.600 H Neutrophils % 67.7 Lymphocytes % 15.7 Monocytes % 11.9 H Eosinophils % 3.7 Basophils % 0.4 Nucleated Red Blood Cells % 0.0 Immature Granulocytes # 0.080 H Neutrophils # 8.7 H Lymphocytes # 2.0 Monocytes # 1.5 H Eosinophils # 0.5 Basophils # 0.1 Nucleated Red Blood Cells # 0.0 Medications Medication Current Medications Acetaminophen (Tylenol Tab) 650 mg Q4 PRN PO MILD PAIN(1-3)OR ELEVATED TEMP Last administered on 02/22/19 20:55; Admin Dose 650 MG; Start 02/06/19 at 00:00 Acetylcysteine (Mucomyst) 2 ml Q6H RESP THERAPY NEB Last administered on 02/26/19 07:39; Admin Dose 2 ML; Start 02/06/19 at 02:00 Apixaban (Eliquis) 2.5 mg BID PO Last administered on 02/25/19 20:32; Admin Dose 2.5 MG; Start 02/06/19 at 09:00 Atorvastatin Calcium (Lipitor) 20 mg QHS PO Last administered on 02/25/19 20:32; Admin Dose 20 MG; Start 02/06/19 at 21:00 Bupropion HCl (Wellbutrin Xl) 300 mg DAILY PO Last administered on 02/25/19 08:34; Admin Dose 300 MG; Start 02/06/19 at 09:00 Docusate Sodium (Colace) 100 mg QHS PO Last administered on 02/25/19 20:32; Admin Dose 100 MG; Start 02/06/19 at 21:00 Fluticasone/ Vilanterol (Breo Ellipta 200-25 Mcg Inh) 1 inh DAILY INH Last administered on 02/25/19 08:36; Admin Dose 1 INH; Start 02/06/19 at 09:00 Mirtazapine (Remeron) 15 mg HS PO Last administered on 02/25/19 20:32; Admin Dose 15 MG; Start 02/06/19 at 21:00 Pantoprazole (Protonix Tab) 40 mg AC BREAKFAST PO Last administered on 02/25/19 08:34; Admin Dose 40 MG; Start 02/06/19 at 07:20 IV Flush (NS 3 ml) 3 ml PER PROTOCOL IV Last administered on 02/06/19 00:04; Admin Dose 3 ML; Start 02/06/19 at 00:00 Ondansetron HCl (Zofran Inj) 4 mg Q6H PRN IV NAUSEA/VOMITING; Start 02/06/19 at 00:00 Magnesium Hydroxide (Milk Of Mag) 30 ml DAILY PRN PO .CONSTIPATION; Start 02/06/19 at 00:00 Sodium Biphosphate/ Sodium Phosphate (Fleet Enema) 133 ml DAILY PRN [place] .CONSTIPATION; Start 02/06/19 at 00:00 Miscellaneous Information (Pending [facility] Order For Wound Care) This patient sawyer... PRN PRN XX WOUND CARE; Start 02/06/19 at 08:00 Albuterol/ Ipratropium (Duoneb) 3 ml Q6H RESP THERAPY HHN Last administered on 02/26/19 07:39; Admin Dose 3 ML; Start 02/06/19 at 08:30 Metoprolol Tartrate (Lopressor) 25 mg BID PO Last administered on 02/25/19 20:32; Admin Dose 25 MG; Start 02/09/19 at 21:00 Doxycycline Hyclate (Vibramycin) 100 mg BID PO Last administered on 02/25/19 20:32; Admin Dose 100 MG; Start 02/12/19 at 21:00 Guaifenesin (Robitussin Liquid Cup) 200 mg Q4H PRN PO COUGH; Start 02/18/19 at 18:00 Dextrose 1,000 ml @ 100 mls/hr Q10H IV Last administered on 02/26/19 06:54; Admin Dose 100 MLS/HR; Start 02/19/19 at 18:00 Cefepime HCl 50 ml @ 100 mls/hr Q24H IVPB Last administered on 02/25/19 20:34; Admin Dose 100 MLS/HR; Start 02/19/19 at 21:00 Escitalopram Oxalate (Lexapro) 10 mg DAILY PO Last administered on 02/25/19 08:34; Admin Dose 10 MG; Start 02/22/19 at 09:00 Megestrol Acetate (Megace Susp) 800 mg DAILY PO Last administered on 02/25/19 19:39; Admin Dose 800 MG; Start 02/25/19 at 18:30 MIGUELITO VASQUEZ MD February 26, 2019 07:47
[2019-02-26] MEDS: BUPROPION (XL) 150 MG TAB PO SCH (09:51)
[2019-02-26] MEDS: DOXYCYCLINE 100 MG TAB PO SCH ×2 (09:51→20:40)
[2019-02-26] MEDS: MEGESTROL (40 MG/ML) 10ML CUP PO SCH (09:51)
[2019-02-26] MEDS: PANTOPRAZOLE (EC) 40 MG TAB PO SCH (09:52)
[2019-02-26] MEDS: METOPROLOL 25 MG TAB PO SCH ×2 (09:52→20:50)
[2019-02-26] MEDS: APIXABAN 5 MG TABLET PO SCH ×2 (09:52→20:50)
[2019-02-26] MEDS: BALSAM PERU/CASTOR OIL 60 GM TUBE TOP SCH ×2 (09:52→20:52)
[2019-02-26] MEDS: ESCITALOPRAM 10 MG TAB PO SCH (09:52)
[2019-02-26] MEDS: FLUTICASONE/VILANTEROL 200-25 INH DEVICE INH SCH (09:53)
[2019-02-26 15:38] VITALS: BP 124/61; PULSE 91; RESP 18
--- NOTE | 2019-02-26 16:19 | PN ---
Date/Time of Note Date/Time of Note DATE: 02/26/19 TIME: 16:12 Assessment/Plan VTE Prophylaxis Risk score (from [facility] [place])>0 risk: 4 SCD applied (from [facility] [place]): Yes Pharmacological prophylaxis: apixaban Lines/Catheters IV Catheter Type (from [facility]): Peripheral IV Urinary Cath still in place: No Assessment/Plan Hospital Course Patient was admitted with altered mental status and acute dehydration and leukouria. His mental status and dehydration improved with IV fluids and cefepime which were stopped when urine culture grew vijay glabata but no bacteria. Repeat cath UA still shows marked leukouria but culture grew vijay albicans. ID consult recommended treatment for prostatitis with 1 month of doxycycline. Patient was able to feed himself but needs full assist in transfer and ambul ation even with PT treatment for a week. Was supposed to go to [facility] for continued therapy but patient developed leukocytosis and increased confusion just prior to discharge. Problems: (1) Cellulitis Status: Acute Comment: wound cultures from pustules on right elbow growing multiple organism . Cont cefepime until 03-01-2019 per ID. (2) Leukocytosis Status: Acute Comment: Improving very slowly on cefepime and doxycycline. WBC scan pending, blood cx's negative so far but was not drawn when patient had shaking chills., repeat urine cx negative , skin cx growing multiple organisms. (3) Confusion Status: Acute (4) Dehydration Status: Resolved Comment: BUN/creat back to baseline but patient still with poor po intake due to altered mentation . Will reduce IV fluids rate. (5) Pyuria Status: Resolved (6) Sacral decubitus ulcer Status: Chronic Qualifiers: Pressure injury stage: stage 2 Qualified Codes: L89.152 - Pressure ulcer of sacral region, stage 2 (7) Anxiety and depression Status: Chronic Result Diagram: 02/26/19 0435 02/25/19 0511 Results 24hrs Laboratory Tests Test 02/26/19 04:35 White Blood Count 12.9 H Red Blood Count 3.35 L Hemoglobin 9.1 L Hematocrit 28.2 L Mean Corpuscular Volume 84.2 Mean Corpuscular Hemoglobin 27.2 L Mean Corpuscular Hemoglobin Concent 32.3 Red Cell Distribution Width 15.3 H Platelet Count 187 Mean Platelet Volume 12.5 H Immature Granulocytes % 0.600 H Neutrophils % 67.7 Lymphocytes % 15.7 Monocytes % 11.9 H Eosinophils % 3.7 Basophils % 0.4 Nucleated Red Blood Cells % 0.0 Immature Granulocytes # 0.080 H Neutrophils # 8.7 H Lymphocytes # 2.0 Monocytes # 1.5 H Eosinophils # 0.5 Basophils # 0.1 Nucleated Red Blood Cells # 0.0 Procalcitonin 0.14 H Subjective 24 Hr Interval Summary Constitutional: no complaints Exam/Review of Systems Exam Vitals Vital Signs Date Temp Pulse Resp B/P (MAP) Pulse Ox O2 O2 Flow FiO2 Time Delivery Rate 02/26/19 98.3 91 18 124/61 99 Room Air 15:38 (82) 02/26/19 2.0 08:00 02/22/19 21 19:35 Intake and Output 02/25/19 02/25/19 02/26/19 1515:00 23:00 07:00 IntakeIntake Total 1650 ml 2200 ml OutputOutput Total 300 ml 300 ml BalanceBalance -300 ml 1650 ml 1900 ml Constitutional: alert Psych: confusion Head: normocephalic, atraumatic Respiratory: clear to auscultation Cardiovascular: regular rate and rhythm Gastrointestinal: soft, other (bilateral ostomies clean) Musculoskeletal: nl extremities to inspection Results Results 24hrs Laboratory Tests Test 02/26/19 04:35 White Blood Count 12.9 H Red Blood Count 3.35 L Hemoglobin 9.1 L Hematocrit 28.2 L Mean Corpuscular Volume 84.2 Mean Corpuscular Hemoglobin 27.2 L Mean Corpuscular Hemoglobin Concent 32.3 Red Cell Distribution Width 15.3 H Platelet Count 187 Mean Platelet Volume 12.5 H Immature Granulocytes % 0.600 H Neutrophils % 67.7 Lymphocytes % 15.7 Monocytes % 11.9 H Eosinophils % 3.7 Basophils % 0.4 Nucleated Red Blood Cells % 0.0 Immature Granulocytes # 0.080 H Neutrophils # 8.7 H Lymphocytes # 2.0 Monocytes # 1.5 H Eosinophils # 0.5 Basophils # 0.1 Nucleated Red Blood Cells # 0.0 Procalcitonin 0.14 H Medications Medication Current Medications Acetaminophen (Tylenol Tab) 650 mg Q4 PRN PO MILD PAIN(1-3)OR ELEVATED TEMP Last administered on 02/22/19at 20:55; Admin Dose 650 MG; Start 02/06/19 at 00:00 Acetylcysteine (Mucomyst) 2 ml Q6H RESP THERAPY NEB Last administered on 02/26/19 07:39; Admin Dose 2 ML; Start 02/06/19 at 02:00 Apixaban (Eliquis) 2.5 mg BID PO Last administered on 02/26/19 09:52; Admin Dose 2.5 MG; Start 02/06/19 at 09:00 Atorvastatin Calcium (Lipitor) 20 mg QHS PO Last administered on 02/25/19 20:32; Admin Dose 20 MG; Start 02/06/19 at 21:00 Bupropion HCl (Wellbutrin Xl) 300 mg DAILY PO Last administered on 02/26/19 09:51; Admin Dose 300 MG; Start 02/06/19 at 09:00 Docusate Sodium (Colace) 100 mg QHS PO Last administered on 02/25/19 20:32; Admin Dose 100 MG; Start 02/06/19 at 21:00 Fluticasone/ Vilanterol (Breo Ellipta 200-25 Mcg Inh) 1 inh DAILY INH Last administered on 02/26/19 09:53; Admin Dose 1 INH; Start 02/06/19 at 09:00 Mirtazapine (Remeron) 15 mg HS PO Last administered on 02/25/19 20:32; Admin Dose 15 MG; Start 02/06/19 at 21:00 Pantoprazole (Protonix Tab) 40 mg AC BREAKFAST PO Last administered on 02/26/19 09:52; Admin Dose 40 MG; Start 02/06/19 at 07:20 IV Flush (NS 3 ml) 3 ml PER PROTOCOL IV Last administered on 02/06/19 00:04; A dmin Dose 3 ML; Start 02/06/19 at 00:00 Ondansetron HCl (Zofran Inj) 4 mg Q6H PRN IV NAUSEA/VOMITING; Start 02/06/19 at 00:00 Magnesium Hydroxide (Milk Of Mag) 30 ml DAILY PRN PO .CONSTIPATION; Start 02/06/19 at 00:00 Sodium Biphosphate/ Sodium Phosphate (Fleet Enema) 133 ml DAILY PRN [place] .CONSTIP ATION; Start 02/06/19 at 00:00 Miscellaneous Information (Pending [facility] Order For Wound Care) This patient sawyer... PRN PRN XX WOUND CARE; Start 02/06/19 at 08:00 Albuterol/ Ipratropium (Duoneb) 3 ml Q6H RESP THERAPY HHN Last administered on 02/26/19 07:39; Admin Dose 3 ML; Start 02/06/19 at 08:30 Metoprolol Tartrate (Lopressor) 25 mg BID PO Last administered on 02/26/19 09:52; Admin Dose 25 MG; Start 02/09/19 at 21:00 Doxycycline Hyclate (Vibramycin) 100 mg BID PO Last administered on 02/26/19 09:51; Admin Dose 100 MG; Start 02/12/19 at 21:00 Guaifenesin (Robitussin Liquid Cup) 200 mg Q4H PRN PO COUGH; Start 02/18/19 at 18:00 Dextrose 1,000 ml @ 100 mls/hr Q10H IV Last administered on 02/26/19 06:54; Admin Dose 100 MLS/HR; Start 02/19/19 at 18:00 Cefepime HCl 50 ml @ 100 mls/hr Q24H IVPB Last administered on 02/25/19 20:34; Admin Dose 100 MLS/HR; Start 02/19/19 at 21:00 Escitalopram Oxalate (Lexapro) 10 mg DAILY PO Last administered on 02/26/19 09:52; Admin Dose 10 MG; Start 02/22/19 at 09:00 Megestrol Acetate (Megace Susp) 800 mg DAILY PO Last administered on 02/26/19 09:51; Admin Dose 800 MG; Start 02/25/19 at 18:30 BREEZY FRIAS MD February 26, 2019 16:19
[2019-02-26 19:30] VITALS: BP 138/69; PULSE 103; RESP 20
[2019-02-26] MEDS: CEFEPIME 1GM/50 ML (PMX) 50 ML IVPB SCH (20:38)
[2019-02-26] MEDS: ATORVASTATIN 20 MG TAB PO SCH (20:40)
[2019-02-26] MEDS: MIRTAZAPINE 15 MG TAB PO SCH (20:40)
[2019-02-26] MEDS: DOCUSATE SODIUM 100 MG CAP PO SCH (20:50)
[2019-02-27 02:25] VITALS: BP 125/56; PULSE 92; RESP 18
[2019-02-27] MEDS: ALBUTEROL/IPRATROPIUM (NEB) 3 ML AMP HHN SCH ×4 (02:48→19:37)
[2019-02-27] MEDS: ACETYLCYSTEINE 20% 4 ML VIAL NEB SCH ×4 (02:48→19:37)
[2019-02-27] MEDS: PANTOPRAZOLE (EC) 40 MG TAB PO SCH ×2 (07:20→09:45)
[2019-02-27 08:42] VITALS: BP 143/68; PULSE 87; RESP 18
[2019-02-27] MEDS: MEGESTROL (40 MG/ML) 10ML CUP PO SCH ×2 (09:00→10:05)
[2019-02-27] MEDS: FLUTICASONE/VILANTEROL 200-25 INH DEVICE INH SCH ×2 (09:00→10:04)
[2019-02-27] MEDS: BALSAM PERU/CASTOR OIL 60 GM TUBE TOP SCH ×2 (09:00→21:18)
[2019-02-27] MEDS: DEXTROSE 5% 1,000 ML IV SCH ×2 (09:40→21:10)
[2019-02-27] MEDS: DOXYCYCLINE 100 MG TAB PO SCH ×2 (09:44→21:16)
[2019-02-27] MEDS: BUPROPION (XL) 150 MG TAB PO SCH (09:44)
[2019-02-27] MEDS: APIXABAN 5 MG TABLET PO SCH ×2 (09:45→21:17)
[2019-02-27] MEDS: ESCITALOPRAM 10 MG TAB PO SCH (09:45)
[2019-02-27] MEDS: METOPROLOL 25 MG TAB PO SCH ×2 (09:46→21:18)
--- NOTE | 2019-02-27 10:13 | CONS ---
Assessment/Plan Assessment/Plan Hospital Course (Demo Recall) 1) lethargy this seems to wax and wane pt's caregiver that last time he was in the hospital he got more lethargic from the meds he was given I doubt infection is causing his lethargy at this time 02/18 - pt less lethargic this a.m. but has confusion 2) pyuria initial urine cx grew 50k c.glabrata and repeat shows <10k of c.alb I doubt either one is the cause of his pyuria agree to stopping of cefepime since he has neg cx for bacteria x2 I doubt he has an active UTI he may have some prostatitis and a trial of doxycycline to treat atypicals might be of benefit I will start doxycycline to treat possible prostatitis and if his pyuria does not resolve then I would recommend urology consult 02/13 - pt tolerating his doxycycline so far, continue for one month and re-check u/a, urine cx 1 week after he is done with his antibiotics 02/17 - due to elevated WBC will re-order u/a and urine cx 02/18 - pyuria persists urine cx has 5K colonies of likely enterococcus which is not significant continue doxycycline at present consider urology consult I will order urine for AFB cx 02/19 - urine cx from 02/17 only had 5k of enterococcus urine cx from 02/[address] Hancock noted pus in his urine when he urinated and believes pt retains small amout of pus in bladder due to small amout of residual urine left when he urinates pt has been placed on ampho B bladder irrigation, if repeat urine cx from yesterday remains neg can d/c the ampho B doubt pt would benefit from IV ampho B, if vijay is present the bladder irrigation should be sufficient continue with doxycycline CT shows no change in hyperdense mass to L lower kidney 02/20 - ur cx has >100k of yeast continue with ampho B irrigation (5 days as originally planned by Dr. Hancock) 02/24 - pt's 5th day of ampho B bladder irrigation was finished yesterday evening will order repeat u/a and urine cx 02/25 - repeat u/a is good, no significant pyuria/hematuria continue with doxycycline 02/26 - urine cx is negative continue with doxycycline thru 03/13 3) COPD breathing is currently stable 02/17- CXR does not show raimundo pneumonia, his O2 sats have been stable will order procalcitonin, doubt he has pneumonia 02/18 - breathing is stable and pt appears comfortable procalcitonin is pending WBC is down a bit today CT chest is pending 02/19 - CT chest has smaller amount of infiltrates to lower lungs, doubt he has active pneumonia 02/20 - stable, procalcitonin is pending 02/21 - cefepime was started by Dr. Frias if procalcitonin comes back neg to d/c cefepime then 02/24 - procalcitonin was marginally elevated on cefepime, to repeat procalcitonin today 02/25 - procalcitonin now done in house, to order it for tomorrow a.m. 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 5) hx of DVT 6) CAD 7) HTN 8) hx of CVA 9) leukocytosis 02/17 - unexplained, no obvious source of infection CXR shows atelectasis/small pleural effusions and no change in O2 sats will order procalcitonin, u/a and urine cx 02/18 - urine cx only has 5k colonies of likely enterococcus which is not significant breathing is stable no diarrhea WBC a bit improved no additional antibiotics at this time CT chest/abd/pelv is pending 02/20 - RUE is swollen, will order RUE venous doppler continue with ampho B bladder irrigation and doxycycline await procalcitonin if elevated will start pneumonia treatment repeat urine cx has >100k yeast but doubt this is the source for his leukocytosis check cbc, cmp in a.m. pt has persistent hypercalcemia 02/21 - RUE venous doppler was neg and swelling is less doubt he has cellulitis and doxycycline has excellent staph coverage, to d/c vanco on cefepime for possible pneumonia, if procalcitonin on 02/18 comes back neg then will d/c cefepime pt to complete his ampho B bladder irrigation after dose on 02/22 02/23 - improved WBC today pt has RUE IV infiltrated with small pustules and redness noted I have ordered cx of these pustules, continue with cefepime/doxy at present repeat u/a and urine cx now that ampho B bladder irrigation was completed last evening repeat procalcitonin this a.m. 02/26 - improved urine cx is neg wound cx from former IV site is growing e.coli+esbl, sensitive to cefepime, continue this for another 4 days 02/27 - procalcitonin was neg, so no active bacterial infection of lung 10) R forearm IV site infection 02/26 - due to e.coli+ESBL blood cx were negative though continue cefepime thru 03/01 02/27 - doubt yeast, CoNS or enterococcus are significant continue with cefepime thru 03/01 Consultation Date/Type/Reason Admit Date/Time Feb 05, 2019 at 20:14 Initial Consult Date 02/12/19 Type of Consult ID Requesting Provider: BREEZY FRIAS MD Date/Time of Note DATE: 02/27/19 TIME: 10:09 24 HR Interval Summary Free Text/Dictation no significant change spoke to nurse Exam/Review of Systems Exam Vitals Vital Signs Date Temp Pulse Resp B/P (MAP) Pulse Ox O2 O2 Flow FiO2 Time Delivery Rate 02/27/19 98.2 87 18 143/68 99 Room Air 08:42 (93) 02/27/19 2.0 08:23 Intake and Output 02/26/19 02/26/19 02/27/19 1515:00 23:00 07:00 IntakeIntake Total 1450 ml 800 ml OutputOutput Total 450 ml BalanceBalance 1000 ml 800 ml Constitutional: alert, other Eyes: nl sclera Respiratory: clear to auscultation Cardiovascular: regular rate and rhythm Gastrointestinal: soft, non-tender Extremities: other (R arm is bandaged) Results Result Diagram: 02/26/19 0435 02/25/19 0511 Medications Medication Current Medications Acetaminophen (Tylenol Tab) 650 mg Q4 PRN PO MILD PAIN(1-3)OR ELEVATED TEMP Last administered on 02/22/19at 20:55; Admin Dose 650 MG; Start 02/06/19 at 00:00 Acetylcysteine (Mucomyst) 2 ml Q6H RESP THERAPY NEB Last administered on 02/27/19at 02:48; Admin Dose 2 ML; Start 02/06/19 at 02:00 Apixaban (Eliquis) 2.5 mg BID PO Last administered on 02/27/19at 09:45; Admin Dose 2.5 MG; Start 02/06/19 at 09:00 Atorvastatin Calcium (Lipitor) 20 mg QHS PO Last administered on 02/26/19 20:40; Admin Dose 20 MG; Start 02/06/19 at 21:00 Bupropion HCl (Wellbutrin Xl) 300 mg DAILY PO Last administered on 02/27/19 09:44; Admin Dose 300 MG; Start 02/06/19 at 09:00 Docusate Sodium (Colace) 100 mg QHS PO Last administered on 02/25/19 20:32; Admin Dose 100 MG; Start 02/06/19 at 21:00 Fluticasone/ Vilanterol (Breo Ellipta 200-25 Mcg Inh) 1 inh DAILY INH Last administered on 02/27/19 10:04; Admin Dose 1 INH; Start 02/06/19 at 09:00 Mirtazapine (Remeron) 15 mg HS PO Last administered on 02/26/19 20:40; Admin Dose 15 MG; Start 02/06/19 at 21:00 Pantoprazole (Protonix Tab) 40 mg AC BREAKFAST PO Last administered on 02/27/19 09:45; Admin Dose 40 MG; Start 02/06/19 at 07:20 IV Flush (NS 3 ml) 3 ml PER PROTOCOL IV Last administered on 02/06/19 00:04; Admin Dose 3 ML; Start 02/06/19 at 00:00 Ondansetron HCl (Zofran Inj) 4 mg Q6H PRN IV NAUSEA/VOMITING; Start 02/06/19 at 00:00 Magnesium Hydroxide (Milk Of Mag) 30 ml DAILY PRN PO .CONSTIPATION; Start 02/06/19 at 00:00 Sodium Biphosphate/ Sodium Phosphate (Fleet Enema) 133 ml DAILY PRN [place] .CONSTIPATION; Start 02/06/19 at 00:00 Miscellaneous Information ([facility] This patient sawyer... PRN PRN XX WOUND CARE; Start 02/06/19 at 08:00 Albuterol/ Ipratropium (Duoneb) 3 ml Q6H RESP THERAPY HHN Last administered on 02/27/19 08:21; Admin Dose 3 ML; Start 02/06/19 at 08:30 Metoprolol Tartrate (Lopressor) 25 mg BID PO Last administered on 02/27/19 09:46; Admin Dose 25 MG; Start 02/09/19 at 21:00 Doxycycline Hyclate (Vibramycin) 100 mg BID PO Last administered on 02/27/19 09:44; Admin Dose 100 MG; Start 02/12/19 at 21:00 Guaifenesin (Robitussin Liquid Cup) 200 mg Q4H PRN PO COUGH; Start 02/18/19 at 18:00 Dextrose 1,000 ml @ 100 mls/hr Q10H IV Last administered on 02/27/19 09:40; Admin Dose 100 MLS/HR; Start 02/19/19 at 18:00 Cefepime HCl 50 ml @ 100 mls/hr Q24H IVPB Last administered on 02/26/19 20:38; Admin Dose 100 MLS/HR; Start 02/19/19 at 21:00 Escitalopram Oxalate (Lexapro) 10 mg DAILY PO Last administered on 02/27/19 09:45; Admin Dose 10 MG; Start 02/22/19 at 09:00 Megestrol Acetate (Megace Susp) 800 mg DAILY PO Last administered on 02/27/19 10:05; Admin Dose 800 MG; Start 02/25/19 at 18:30 MIGUELITO VASQUEZ MD February 27, 2019 10:13
--- NOTE | 2019-02-27 18:11 | PN ---
Date/Time of Note Date/Time of Note DATE: 02/27/19 TIME: 18:09 Assessment/Plan VTE Prophylaxis Risk score (from [facility] [place])>0 risk: 6 SCD applied (from [facility] [place]): Yes Pharmacological prophylaxis: apixaban Lines/Catheters IV Catheter Type (from [facility] [place] Lock Urinary Cath still in place: No Assessment/Plan Hospital Course Patient was admitted with altered mental status and acute dehydration and leukouria. His mental status and dehydration improved with IV fluids and cefepime which were stopped when urine culture grew vijay glabata but no bacteria. Repeat cath UA still shows marked leukouria but culture grew vijay albicans. ID consult recommended treatment for prostatitis with 1 month of doxycycline. Patient was able to feed himself but needs full assist in transfer and ambulat ion even with PT treatment for a week. Was supposed to go to [facility] for continued therapy but patient developed leukocytosis and increased confusion just prior to discharge. Assessment/Plan (1) Cellulitis Status: Acute Comment: wound cultures from pustules on right elbow growing multiple organism . Cont cefepime until 03-01-2019 per ID. (2) Leukocytosis Status: Acute Comment: Improving very slowly on cefepime and doxycycline. WBC scan pending, blood cx's negative so far but was not drawn when patient had shaking chills., repeat urine cx negative , skin cx growing multiple organisms. (3) Lethargy and poor appetite Status: Acute Comment: Started on megace , add vitamins per [employer]'s recommendation. (4) Dehydration Status: Resolved Comment: BUN/creat back to baseline but patient still with poor po intake due to altered mentation . Will reduce IV fluids rate. (5) Pyuria Status: Resolved (6) Sacral decubitus ulcer Status: Chronic Qualifiers: Pressure injury stage: stage 2 Qualified Codes: L89.152 - Pressure ulcer of sacral region, stage 2 (7) Anxiety and depression Status: Chronic, stable on meds. Result Diagram: 02/26/19 0435 02/25/19 0511 Subjective 24 Hr Interval Summary Subjective hx not possible: pt non-verbal Exam/Review of Systems Exam Vitals Vital Signs Date Temp Pulse Resp B/P (MAP) Pulse Ox O2 O2 Flow FiO2 Time Delivery Rate 02/27/19 98.2 87 18 143/68 99 Room Air 08:42 (93) 02/27/19 2.0 08:23 Intake and Output 02/26/19 02/26/19 02/27/19 1515:00 23:00 07:00 IntakeIntake Total 1450 ml 800 ml OutputOutput Total 450 ml BalanceBalance 1000 ml 800 ml Exam Patient sleeping, arousable but lethargic and not communicating Head: normocephalic, atraumatic Respiratory: clear to auscultation, congested cough Cardiovascular: regular rate and rhythm Gastrointestinal: soft, other (bilateral ostomies clean) Musculoskeletal: nl extremities to inspection Medications Medication Current Medications Acetaminophen (Tylenol Tab) 650 mg Q4 PRN PO MILD PAIN(1-3)OR ELEVATED TEMP Last administered on 02/22/19 20:55; Admin Dose 650 MG; Start 02/06/19 at 00:00 Acetylcysteine (Mucomyst) 2 ml Q6H RESP THERAPY NEB Last administered on 02/27/19 02:48; Admin Dose 2 ML; Start 02/06/19 at 02:00 Apixaban (Eliquis) 2.5 mg BID PO Last administered on 02/27/19 09:45; Admin Dose 2.5 MG; Start 02/06/19 at 09:00 Atorvastatin Calcium (Lipitor) 20 mg QHS PO Last administered on 02/26/19 20:40; Admin Dose 20 MG; Start 02/06/19 at 21:00 Bupropion HCl (Wellbutrin Xl) 300 mg DAILY PO Last administered on 02/27/19 09:44; Admin Dose 300 MG; Start 02/06/19 at 09:00 Docusate Sodium (Colace) 100 mg QHS PO Last administered on 02/25/19 20:32; Admin Dose 100 MG; Start 02/06/19 at 21:00 Fluticasone/ Vilanterol (Breo Ellipta 200-25 Mcg Inh) 1 inh DAILY INH Last administered on 02/27/19 10:04; Admin Dose 1 INH; Start 02/06/19 at 09:00 Mirtazapine (Remeron) 15 mg HS PO Last administered on 02/26/19 20:40; Admin Dose 15 MG; Start 02/06/19 at 21:00 Pantoprazole (Protonix Tab) 40 mg AC BREAKFAST PO Last administered on 02/27/19 09:45; Admin Dose 40 MG; Start 02/06/19 at 07:20 IV Flush (NS 3 ml) 3 ml PER PROTOCOL IV Last administered on 02/06/19 00:04; Admin Dose 3 ML; Start 02/06/19 at 00:00 Ondansetron HCl (Zofran Inj) 4 mg Q6H PRN IV NAUSEA/VOMITING; Start 02/06/19 at 00:00 Magnesium Hydroxide (Milk Of Mag) 30 ml DAILY PRN PO .CONSTIPATION; Start 02/06/19 at 00:00 Sodium Biphosphate/ Sodium Phosphate (Fleet Enema) 133 ml DAILY PRN [place] .CONSTIPATION; Start 02/06/19 at 00:00 Miscellaneous Information (Pending [facility] Order For Wound Care) This patient sawyer... PRN PRN XX WOUND CARE; Start 02/06/19 at 08:00 Albuterol/ Ipratropium (Duoneb) 3 ml Q6H RESP THERAPY HHN Last administered on 02/27/19 14:14; Admin Dose 3 ML; Start 02/06/19 at 08:30 Metoprolol Tartrate (Lopressor) 25 mg BID PO Last administered on 02/27/19 09:46; Admin Dose 25 MG; Start 02/09/19 at 21:00 Doxycycline Hyclate (Vibramycin) 100 mg BID PO Last administered on 02/27/19 09:44; Admin Dose 100 MG; Start 02/12/19 at 21:00 Guaifenesin (Robitussin Liquid Cup) 200 mg Q4H PRN PO COUGH; Start 02/18/19 at 18:00 Dextrose 1,000 ml @ 100 mls/hr Q10H IV Last administered on 02/27/19 09:40; Admin Dose 100 MLS/HR; Start 02/19/19 at 18:00 Cefepime HCl 50 ml @ 100 mls/hr Q24H IVPB Last administered on 02/26/19 20:38; Admin Dose 100 MLS/HR; Start 02/19/19 at 21:00 Escitalopram Oxalate (Lexapro) 10 mg DAILY PO Last administered on 02/27/19 09:45; Admin Dose 10 MG; Start 02/22/19 at 09:00 Megestrol Acetate (Megace Susp) 800 mg DAILY PO Last administered on 5/2/19at 10:05; Admin Dose 800 MG; Start 02/25/19 at 18:30 BREEZY FRIAS MD February 27, 2019 18:11
[2019-02-27 19:15] VITALS: BP 130/50; PULSE 75; RESP 18
[2019-02-27] MEDS ORDERED: ASCORBIC ACID 500 MG TAB.CHEW PO SCH (21:00)
[2019-02-27] MEDS: CEFEPIME 1GM/50 ML (PMX) 50 ML IVPB SCH (21:13)
[2019-02-27] MEDS: DOCUSATE SODIUM 100 MG CAP PO SCH (21:16)
[2019-02-27] MEDS: MIRTAZAPINE 15 MG TAB PO SCH (21:18)
[2019-02-27] MEDS: ATORVASTATIN 20 MG TAB PO SCH (21:18)
[2019-02-28] MEDS: ALBUTEROL/IPRATROPIUM (NEB) 3 ML AMP HHN SCH ×4 (01:17→21:02)
[2019-02-28] MEDS: ACETYLCYSTEINE 20% 4 ML VIAL NEB SCH ×4 (01:18→21:02)
[2019-02-28 02:49] VITALS: BP 148/56; PULSE 95; RESP 18
--- NOTE | 2019-02-28 06:55 | CONS ---
Assessment/Plan Assessment/Plan Hospital Course (Demo Recall) 1) lethargy this seems to wax and wane pt's caregiver that last time he was in the hospital he got more lethargic from the meds he was given I doubt infection is causing his lethargy at this time 02/18 - pt less lethargic this a.m. but has confusion 2) pyuria initial urine cx grew 50k c.glabrata and repeat shows <10k of c.alb I doubt either one is the cause of his pyuria agree to stopping of cefepime since he has neg cx for bacteria x2 I doubt he has an active UTI he may have some prostatitis and a trial of doxycycline to treat atypicals might be of benefit I will start doxycycline to treat possible prostatitis and if his pyuria does not resolve then I would recommend urology consult 02/13 - pt tolerating his doxycycline so far, continue for one month and re-check u/a, urine cx 1 week after he is done with his antibiotics 02/17 - due to elevated WBC will re-order u/a and urine cx 02/18 - pyuria persists urine cx has 5K colonies of likely enterococcus which is not significant continue doxycycline at present consider urology consult I will order urine for AFB cx 02/19 - urine cx from 02/17 only had 5k of enterococcus urine cx from 02/[address] Hancock noted pus in his urine when he urinated and believes pt retains small amout of pus in bladder due to small amout of residual urine left when he urinates pt has been placed on ampho B bladder irrigation, if repeat urine cx from yesterday remains neg can d/c the ampho B doubt pt would benefit from IV ampho B, if vijay is present the bladder irrigation should be sufficient continue with doxycycline CT shows no change in hyperdense mass to L lower kidney 02/20 - ur cx has >100k of yeast continue with ampho B irrigation (5 days as originally planned by Dr. Hancock) 02/24 - pt's 5th day of ampho B bladder irrigation was finished yesterday evening will order repeat u/a and urine cx 02/25 - repeat u/a is good, no significant pyuria/hematuria continue with doxycycline 02/26 - urine cx is negative continue with doxycycline thru 03/13 3) COPD breathing is currently stable 02/17- CXR does not show raimundo pneumonia, his O2 sats have been stable will order procalcitonin, doubt he has pneumonia 02/18 - breathing is stable and pt appears comfortable procalcitonin is pending WBC is down a bit today CT chest is pending 02/19 - CT chest has smaller amount of infiltrates to lower lungs, doubt he has active pneumonia 02/20 - stable, procalcitonin is pending 02/21 - cefepime was started by Dr. Frias if procalcitonin comes back neg to d/c cefepime then 02/24 - procalcitonin was marginally elevated on cefepime, to repeat procalcitonin today 02/25 - procalcitonin now done in house, to order it for tomorrow a.m. 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 5) hx of DVT 6) CAD 7) HTN 8) hx of CVA 9) leukocytosis 02/17 - unexplained, no obvious source of infection CXR shows atelectasis/small pleural effusions and no change in O2 sats will order procalcitonin, u/a and urine cx 02/18 - urine cx only has 5k colonies of likely enterococcus which is not significant breathing is stable no diarrhea WBC a bit improved no additional antibiotics at this time CT chest/abd/pelv is pending 02/20 - RUE is swollen, will order RUE venous doppler continue with ampho B bladder irrigation and doxycycline await procalcitonin if elevated will start pneumonia treatment repeat urine cx has >100k yeast but doubt this is the source for his leukocytosis check cbc, cmp in a.m. pt has persistent hypercalcemia 02/21 - RUE venous doppler was neg and swelling is less doubt he has cellulitis and doxycycline has excellent staph coverage, to d/c vanco on cefepime for possible pneumonia, if procalcitonin on 02/18 comes back neg then will d/c cefepime pt to complete his ampho B bladder irrigation after dose on 02/22 02/23 - improved WBC today pt has RUE IV infiltrated with small pustules and redness noted I have ordered cx of these pustules, continue with cefepime/doxy at present repeat u/a and urine cx now that ampho B bladder irrigation was completed last evening repeat procalcitonin this a.m. 02/26 - improved urine cx is neg wound cx from former IV site is growing e.coli+esbl, sensitive to cefepime, continue this for another 4 days 02/27 - procalcitonin was neg, so no active bacterial infection of lung 02/28 - doubt WBC scan will be useful 10) R forearm IV site infection 02/26 - due to e.coli+ESBL blood cx were negative though continue cefepime thru 03/01 02/27 - doubt yeast, CoNS or enterococcus are significant continue with cefepime thru 03/01 02/28 - this is improved on cefepime thru 03/01 (stop date put in ) Consultation Date/Type/Reason Admit Date/Time Feb 05, 2019 at 20:14 Initial Consult Date 02/12/19 Type of Consult ID Requesting Provider: BREEZY FRIAS MD Date/Time of Note DATE: 02/28/19 TIME: 06:52 24 HR Interval Summary Free Text/Dictation spoke to nurse pt is not eating much at all he is spitting out his meds no V greenish stool in ileostomy Exam/Review of Systems Exam Vitals Vital Signs Date Temp Pulse Resp B/P (MAP) Pulse Ox O2 O2 Flow FiO2 Time Delivery Rate 02/28/19 98.4 95 18 148/56 96 02:49 (86) 02/28/19 2.0 01:19 02/28/19 Nasal 01:19 Cannula Intake and Output 02/27/19 02/27/19 02/28/19 1515:00 23:00 07:00 IntakeIntake Total 200 ml 1050 ml 350 ml OutputOutput Total 700 ml 100 ml BalanceBalance 200 ml 350 ml 250 ml Respiratory: clear to auscultation Cardiovascular: regular rate and rhythm Gastrointestinal: soft, non-tender Extremities: other (R forearm, redness much improved, healing skin breakdown) Results Result Diagram: 02/28/19 0446 02/28/19 0446 Results 24hrs Laboratory Tests Test 02/28/19 04:46 White Blood Count 13.5 H Red Blood Count 3.10 L Hemoglobin 8.5 L Hematocrit 25.6 L Mean Corpuscular Volume 82.6 Mean Corpuscular Hemoglobin 27.4 L Mean Corpuscular Hemoglobin Concent 33.2 Red Cell Distribution Width 15.1 H Platelet Count 133 #L Mean Platelet Volume 12.2 H Immature Granulocytes % 0.600 H Neutrophils % 71.5 Lymphocytes % 13.1 L Monocytes % 11.5 H Eosinophils % 3.0 Basophils % 0.3 Nucleated Red Blood Cells % 0.0 Immature Granulocytes # 0.080 H Neutrophils # 9.7 H Lymphocytes # 1.8 Monocytes # 1.6 H Eosinophils # 0.4 Basophils # 0.0 Nucleated Red Blood Cells # 0.0 Sodium Level 127 L Potassium Level 4.4 Chloride Level 99 Carbon Dioxide Level 19 L Anion Gap 9 Blood Urea Nitrogen 30 H Creatinine 1.27 H Est Glomerular Filtrat Rate mL/min Glucose Level 99 Calcium Level 10.1 Prealbumin 8.6 L Medications Medication Current Medications Acetaminophen (Tylenol Tab) 650 mg Q4 PRN PO MILD PAIN(1-3)OR ELEVATED TEMP Last administered on 02/22/19 20:55; Admin Dose 650 MG; Start 02/06/19 at 00:00 Acetylcysteine (Mucomyst) 2 ml Q6H RESP THERAPY NEB Last administered on 02/28/19 01:18; Admin Dose 2 ML; Start 02/06/19 at 02:00 Apixaban (Eliquis) 2.5 mg BID PO Last administered on 02/27/19 21:17; Admin Dose 2.5 MG; Start 02/06/19 at 09:00 Atorvastatin Calcium (Lipitor) 20 mg QHS PO Last administered on 02/27/19 21:18; Admin Dose 20 MG; Start 02/06/19 at 21:00 Bupropion HCl (Wellbutrin Xl) 300 mg DAILY PO Last administered on 02/27/19 09:44; Admin Dose 300 MG; Start 02/06/19 at 09:00 Docusate Sodium (Colace) 100 mg QHS PO Last administered on 02/27/19 21:16; Admin Dose 100 MG; Start 02/06/19 at 21:00 Fluticasone/ Vilanterol (Breo Ellipta 200-25 Mcg Inh) 1 inh DAILY INH Last administered on 02/26/19 09:53; Admin Dose 1 INH; Start 02/06/19 at 09:00 Mirtazapine (Remeron) 15 mg HS PO Last administered on 02/27/19 21:18; Admin Dose 15 MG; Start 02/06/19 at 21:00 Pantoprazole (Protonix Tab) 40 mg AC BREAKFAST PO Last administered on 02/26/19 09:52; Admin Dose 40 MG; Start 02/06/19 at 07:20 IV Flush (NS 3 ml) 3 ml PER PROTOCOL IV Last administered on 02/06/19 00:04; Admin Dose 3 ML; Start 02/06/19 at 00:00 Ondansetron HCl (Zofran Inj) 4 mg Q6H PRN IV NAUSEA/VOMITING; Start 02/06/19 at 00:00 Magnesium Hydroxide (Milk Of Mag) 30 ml DAILY PRN PO .CONSTIPATION; Start 02/06/19 at 00:00 Sodium Biphosphate/ Sodium Phosphate (Fleet Enema) 133 ml DAILY PRN [place] .CONSTIPATION; Start 02/06/19 at 00:00 [facility] This patient sawyer... PRN PRN XX WOUND CARE; Start 02/06/19 at 08:00 Albuterol/ Ipratropium (Duoneb) 3 ml Q6H RESP THERAPY HHN Last administered on 02/28/19 01:17; Admin Dose 3 ML; Start 02/06/19 at 08:30 Metoprolol Tartrate (Lopressor) 25 mg BID PO Last administered on 02/27/19 21:18; Admin Dose 25 MG; Start 02/09/19 at 21:00 Doxycycline Hyclate (Vibramycin) 100 mg BID PO Last administered on 02/27/19 21:16; Admin Dose 100 MG; Start 02/12/19 at 21:00 Guaifenesin (Robitussin Liquid Cup) 200 mg Q4H PRN PO COUGH; Start 02/18/19 at 18:00 Dextrose 1,000 ml @ 50 mls/hr Q20H IV Last administered on 02/27/19 21:10; Admin Dose 50 MLS/HR; Start 02/19/19 at 18:00 Cefepime HCl 50 ml @ 100 mls/hr Q24H IVPB Last administered on 02/27/19 21:13; Admin Dose 100 MLS/HR; Start 02/19/19 at 21:00 Escitalopram Oxalate (Lexapro) 10 mg DAILY PO Last administered on 02/27/19at 09:45; Admin Dose 10 MG; Start 02/22/19 at 09:00 Megestrol Acetate (Megace Susp) 800 mg DAILY PO Last administered on 02/26/19at 09:51; Admin Dose 800 MG; Start 02/25/19 at 18:30 Zinc Sulfate (Zinc Sulfate) 220 mg DAILY PO ; Start 02/28/19 at 09:00 Multivitamins Therapeutic (Theragran) 1 tab DAILY PO ; Start 02/28/19 at 09:00 Ascorbic Acid (Vitamin C) 500 mg BID PO ; Start 02/28/19 at 09:00 MIGUELITO VASQUEZ MD February 28, 2019 06:55
[2019-02-28 08:00] VITALS: BP 129/57; PULSE 86; RESP 18
[2019-02-28] MEDS: FLUTICASONE/VILANTEROL 200-25 INH DEVICE INH SCH ×2 (09:00→10:02)
[2019-02-28] MEDS: ESCITALOPRAM 10 MG TAB PO SCH (09:56)
[2019-02-28] MEDS: DOXYCYCLINE 100 MG TAB PO SCH ×2 (09:56→20:14)
[2019-02-28] MEDS: ZINC SULFATE 220 MG CAP PO SCH (09:56)
[2019-02-28] MEDS: BUPROPION (XL) 150 MG TAB PO SCH (09:56)
[2019-02-28] MEDS: MEGESTROL (40 MG/ML) 10ML CUP PO SCH (09:56)
[2019-02-28] MEDS: APIXABAN 5 MG TABLET PO SCH ×2 (09:57→20:17)
[2019-02-28] MEDS ORDERED: LIDOCAINE 1% (MPF) 5 ML VIAL SC ONE (10:00)
[2019-02-28] MEDS: ASCORBIC ACID 500 MG TAB PO SCH ×2 (10:01→20:15)
[2019-02-28] MEDS: METOPROLOL 25 MG TAB PO SCH ×2 (10:01→21:00)
[2019-02-28] MEDS: PANTOPRAZOLE (EC) 40 MG TAB PO SCH (10:01)
[2019-02-28] MEDS: MULTIVITAMINS THERAPEUTIC TAB PO SCH (10:01)
[2019-02-28] MEDS: SOD CHLORIDE 0.9% 1,000 ML IV SCH (10:02)
[2019-02-28] MEDS: BALSAM PERU/CASTOR OIL 60 GM TUBE TOP SCH ×2 (10:02→20:16)
--- NOTE | 2019-02-28 12:40 | PN ---
Date/Time of Note Date/Time of Note DATE: 02/28/19 TIME: 12:34 Assessment/Plan VTE Prophylaxis Risk score (from [facility] [place])>0 risk: 8 SCD applied (from [facility] [place]): Yes Pharmacological prophylaxis: apixaban Lines/C[facility]ters [facility] IV Urinary Cath still in place: No Assessment/Plan Hospital Course Patient was admitted with altered mental status and acute dehydration and leukouria. His mental status and dehydration improved with IV fluids and cefepime which were stopped when urine culture grew vijay glabata but no bacteria. Repeat cath UA still shows marked leukouria but culture grew vijay albicans. ID consult recommended treatment for prostatitis with 1 month of doxycycline. Patient was able to feed himself but needs full assist in transfer and ambul ation even with PT treatment for a week. Was supposed to go to [facility] for continued therapy but patient developed leukocytosis and increased confusion just prior to discharge. Problems: (1) Hyponatremia Status: Acute Comment: Stop lexapro. Change D5 W to NS to correct low sodium slowly. (2) Lethargy Status: Acute (3) Cellulitis Status: Acute Comment: finishing with course of cefepime tomorrow, now with mininal right e lbow erythema. (4) Pyuria Status: Resolved (5) Sacral decubitus ulcer Status: Chronic Qualifiers: Pressure injury stage: stage 2 Qualified Codes: L89.152 - Pressure ulcer of sacral region, stage 2 (6) Anxiety and depression Status: Chronic Comment: stop lexapro due to low sodium. Add zyprexa for refractory depressio n. (7) COPD exacerbation Status: Acute (8) CHF (congestive heart failure) Status: Chronic (9) Malnutrition Status: Acute Comment: Started on megace, boost supplements and vitamins supplements. Result Diagram: 02/28/19 0446 02/28/196 Results 24hrs Laboratory Tests Test 02/28/19 04:46 White Blood Count 13.5 H Red Blood Count 3.10 L Hemoglobin 8.5 L Hematocrit 25.6 L Mean Corpuscular Volume 82.6 Mean Corpuscular Hemoglobin 27.4 L Mean Corpuscular Hemoglobin Concent 33.2 Red Cell Distribution Width 15.1 H Platelet Count 133 #L Mean Platelet Volume 12.2 H Immature Granulocytes % 0.600 H Neutrophils % 71.5 Lymphocytes % 13.1 L Monocytes % 11.5 H Eosinophils % 3.0 Basophils % 0.3 Nucleated Red Blood Cells % 0.0 Immature Granulocytes # 0.080 H Neutrophils # 9.7 H Lymphocytes # 1.8 Monocytes # 1.6 H Eosinophils # 0.4 Basophils # 0.0 Nucleated Red Blood Cells # 0.0 Sodium Level 127 L Potassium Level 4.4 Chloride Level 99 Carbon Dioxide Level 19 L Anion Gap 9 Blood Urea Nitrogen 30 H Creatinine 1.27 H Est Glomerular Filtrat Rate mL/min Glucose Level 99 Calcium Level 10.1 Prealbumin 8.6 L Subjective 24 Hr Interval Summary Free Text/Dictation Patient asleep , barely opens eyes to enquiries. Exam/Review of Systems Exam Vitals Vital Signs Date Temp Pulse Resp B/P (MAP) Pulse Ox O2 O2 Flow FiO2 Time Delivery Rate 02/28/19 83 20 98 Nasal 3.0 08:40 Cannula 02/28/19 98.4 148/56 02:49 (86) Intake and Output 02/27/19 02/27/19 02/28/19 1515:00 23:00 07:00 IntakeIntake Total 200 ml 1050 ml 350 ml OutputOutput Total 700 ml 100 ml BalanceBalance 200 ml 350 ml 250 ml Exam Patient not opening mouth for many oral meds per nursing. Head: normocephalic, atraumatic Neck: supple Respiratory: clear to auscultation, normal air movement Gastrointestinal: soft, other (bilaterl ostomies clean) Musculoskeletal: muscle tone, muscle weakness Skin: other (right medial elbow erythema. small punctuate ulcers / excoriation on sacral erythema.) Results Results 24hrs Laboratory Tests Test 02/28/19 04:46 White Blood Count 13.5 H Red Blood Count 3.10 L Hemoglobin 8.5 L Hematocrit 25.6 L Mean Corpuscular Volume 82.6 Mean Corpuscular Hemoglobin 27.4 L Mean Corpuscular Hemoglobin Concent 33.2 Red Cell Distribution Width 15.1 H Platelet Count 133 #L Mean Platelet Volume 12.2 H Immature Granulocytes % 0.600 H Neutrophils % 71.5 Lymphocytes % 13.1 L Monocytes % 11.5 H Eosinophils % 3.0 Basophils % 0.3 Nucleated Red Blood Cells % 0.0 Immature Granulocytes # 0.080 H Neutrophils # 9.7 H Lymphocytes # 1.8 Monocytes # 1.6 H Eosinophils # 0.4 Basophils # 0.0 Nucleated Red Blood Cells # 0.0 Sodium Level 127 L Potassium Level 4.4 Chloride Level 99 Carbon Dioxide Level 19 L Anion Gap 9 Blood Urea Nitrogen 30 H Creatinine 1.27 H Est Glomerular Filtrat Rate mL/min Glucose Level 99 Calcium Level 10.1 Prealbumin 8.6 L Medications Medication Current Medications Acetaminophen (Tylenol Tab) 650 mg Q4 PRN PO MILD PAIN(1-3)OR ELEVATED TEMP Last administered on 02/22/19 20:55; Admin Dose 650 MG; Start 02/06/19 at 00:00 Acetylcysteine (Mucomyst) 2 ml Q6H RESP THERAPY NEB Last administered on 02/28/19 08:40; Admin Dose 2 ML; Start 02/06/19 at 02:00 Apixaban (Eliquis) 2.5 mg BID PO Last administered on 02/28/19 09:57; Admin Dose 2.5 MG; Start 02/06/19 at 09:00 Atorvastatin Calcium (Lipitor) 20 mg QHS PO Last administered on 02/27/19 21:18; Admin Dose 20 MG; Start 02/06/19 at 21:00 Bupropion HCl (Wellbutrin Xl) 300 mg DAILY PO Last administered on 02/28/19 09:56; Admin Dose 300 MG; Start 02/06/19 at 09:00 Docusate Sodium (Colace) 100 mg QHS PO Last administered on 02/27/19 21:16; Admin Dose 100 MG; Start 02/06/19 at 21:00 Fluticasone/ Vilanterol (Breo Ellipta 200-25 Mcg Inh) 1 inh DAILY INH Last administered on 02/26/19 09:53; Admin Dose 1 INH; Start 02/06/19 at 09:00 Mirtazapine (Remeron) 15 mg HS PO Last administered on 02/27/19 21:18; Admin Dose 15 MG; Start 02/06/19 at 21:00 Pantoprazole (Protonix Tab) 40 mg AC BREAKFAST PO Last administered on 02/28/19 10:01; Admin Dose 40 MG; Start 02/06/19 at 07:20 IV Flush (NS 3 ml) 3 ml PER PROTOCOL IV Last administered on 4/11/19at 00:04; Admin Dose 3 ML; Start 02/06/19 at 00:00 Ondansetron HCl (Zofran Inj) 4 mg Q6H PRN IV NAUSEA/VOMITING; Start 02/06/19 at 00:00 Magnesium Hydroxide (Milk Of Mag) 30 ml DAILY PRN PO .CONSTIPATION; Start 02/06/19 at 00:00 Sodium Biphosphate/ Sodium Phosphate (Fleet Enema) 133 ml DAILY PRN [place] .CONSTIPATION; Start 02/06/19 at 00:00 [facility] This patient sawyer... PRN PRN XX WOUND CARE; Start 02/06/19 at 08:00 Albuterol/ Ipratropium (Duoneb) 3 ml Q6H RESP THERAPY HHN Last administered on 02/28/19at 08:40; Admin Dose 3 ML; Start 02/06/19 at 08:30 Metoprolol Tartrate (Lopressor) 25 mg BID PO Last administered on 02/28/19at 10:01; Admin Dose 25 MG; Start 02/09/19 at 21:00 Doxycycline Hyclate (Vibramycin) 100 mg BID PO Last administered on 02/28/19 09:56; Admin Dose 100 MG; Start 02/12/19 at 21:00 Guaifenesin (Robitussin Liquid Cup) 200 mg Q4H PRN PO COUGH; Start 02/18/19 at 18:00 Cefepime HCl 50 ml @ 100 mls/hr Q24H IVPB Last administered on 02/27/19at 21:13; Admin Dose 100 MLS/HR; Start 02/19/19 at 21:00; Stop 03/02/19 at 06:00 Escitalopram Oxalate (Lexapro) 10 mg DAILY PO Last administered on 02/28/19 09:56; Admin Dose 10 MG; Start 02/22/19 at 09:00 Megestrol Acetate (Megace Susp) 800 mg DAILY PO Last administered on 02/28/19 09:56; Admin Dose 800 MG; Start 02/25/19 at 18:30 Zinc Sulfate (Zinc Sulfate) 220 mg DAILY PO Last administered on 02/28/19 09:56; Admin Dose 220 MG; Start 02/28/19 at 09:00 Multivitamins Therapeutic (Theragran) 1 tab DAILY PO Last administered on 02/28/19 10:01; Admin Dose 1 TAB; Start 02/28/19 at 09:00 Ascorbic Acid (Vitamin C) 500 mg BID PO Last administered on 02/28/19 10:01; Admin Dose 500 MG; Start 02/28/19 at 09:00 Sodium Chloride 1,000 ml @ 50 mls/hr Q20H IV Last administered on 02/28/19 10:02; Admin Dose 50 MLS/HR; Start 02/28/19 at 10:00 BREEZY FRIAS MD February 28, 2019 12:40
[2019-02-28 14:32] VITALS: BP 136/64; PULSE 86; RESP 18
[2019-02-28 20:00] VITALS: BP 112/49; PULSE 83; RESP 20
[2019-02-28] MEDS: DOCUSATE SODIUM 100 MG CAP PO SCH (20:13)
[2019-02-28] MEDS: CEFEPIME 1GM/50 ML (PMX) 50 ML IVPB SCH (20:13)
[2019-02-28] MEDS: ATORVASTATIN 20 MG TAB PO SCH (20:14)
[2019-02-28] MEDS: MIRTAZAPINE 15 MG TAB PO SCH (20:15)
[2019-03-01 02:14] VITALS: BP 113/51; PULSE 80; RESP 18
[2019-03-01] MEDS: ACETYLCYSTEINE 20% 4 ML VIAL NEB SCH ×4 (03:36→20:13)
[2019-03-01] MEDS: ALBUTEROL/IPRATROPIUM (NEB) 3 ML AMP HHN SCH ×4 (03:36→20:13)
[2019-03-01] MEDS: SOD CHLORIDE 0.9% 1,000 ML IV SCH (04:53)
[2019-03-01 07:18] VITALS: BP 133/60; PULSE 79; RESP 14
[2019-03-01] MEDS: MULTIVITAMINS THERAPEUTIC TAB PO SCH (08:56)
[2019-03-01] MEDS: ASCORBIC ACID 500 MG TAB PO SCH ×2 (08:57→21:00)
[2019-03-01] MEDS: APIXABAN 5 MG TABLET PO SCH ×2 (08:57→20:59)
[2019-03-01] MEDS: PANTOPRAZOLE (EC) 40 MG TAB PO SCH (08:57)
[2019-03-01] MEDS: METOPROLOL 25 MG TAB PO SCH ×2 (09:00→21:00)
[2019-03-01] MEDS: MEGESTROL (40 MG/ML) 10ML CUP PO SCH (09:00)
[2019-03-01] MEDS: ZINC SULFATE 220 MG CAP PO SCH (09:01)
[2019-03-01] MEDS: DOXYCYCLINE 100 MG TAB PO SCH ×2 (09:01→21:00)
[2019-03-01] MEDS: OLANZAPINE 2.5 MG TAB PO SCH (09:01)
[2019-03-01] MEDS: BUPROPION (XL) 150 MG TAB PO SCH (09:01)
[2019-03-01] MEDS: BALSAM PERU/CASTOR OIL 60 GM TUBE TOP SCH ×2 (09:01→21:03)
--- NOTE | 2019-03-01 10:46 | PN ---
Date/Time of Note Date/Time of Note DATE: 03/01/19 TIME: 10:42 Assessment/Plan VTE Prophylaxis [place] [facility] [place] risk: 8 SCD applied [place] [facility] [place] Yes Pharmacological prophylaxis: LMWH Lines/Catheters IV C[facility]ter Type (from [facility] Mid Line Urinary Cath still in place: No Assessment/Plan Assessment/Plan (1) Hyponatremia Status: Acute Comment: Stop lexapro. Change D5 W to NS to correct low sodium slowly. cont's to improve. (2) Lethargy Status: Acute (3) Cellulitis Status: Acute Comment: completed course of cefepime , now with mininal right elbow erythema. (4) Pyuria Status: Resolved (5) Sacral decubitus ulcer Status: Chronic Qualifiers: Pressure injury stage: stage 2 Qualified Codes: L89.152 - Pressure ulcer of sacral region, stage 2 (6) Anxiety and depression Status: Chronic Comment: stop lexapro due to low sodium. Add zyprexa for refractory depression. (7) COPD exacerbation Status: Acute (8) CHF (congestive heart failure) Status: Chronic (9) Malnutrition Status: Acute Comment: Started on megace, boost supplements and vitamins supplements. pyuria- on chronic abx doxycycline til 03/13. leukocytosis---wbc scan is pending Result Diagram: 03/01/19 0456 03/01/19 0456 Results 24hrs Laboratory Tests Test 03/01/19 04:56 White Blood Count 11.7 H Red Blood Count 3.27 L Hemoglobin 8.9 L Hematocrit 27.8 L Mean Corpuscular Volume 85.0 Mean Corpuscular Hemoglobin 27.2 L Mean Corpuscular Hemoglobin Concent 32.0 Red Cell Distribution Width 15.3 H Platelet Count 178 # Mean Platelet Volume 11.5 H Immature Granulocytes % 0.300 Neutrophils % 69.1 Lymphocytes % 14.9 L Monocytes % 12.4 H Eosinophils % 3.0 Basophils % 0.3 Nucleated Red Blood Cells % 0.0 Immature Granulocytes # 0.030 Neutrophils # 8.1 H Lymphocytes # 1.8 Monocytes # 1.5 H Eosinophils # 0.4 Basophils # 0.0 Nucleated Red Blood Cells # 0.0 Sodium Level 132 L Potassium Level 4.4 Chloride Level 102 Carbon Dioxide Level 21 Anion Gap 9 Blood Urea Nitrogen 33 H Creatinine 1.32 H Est Glomerular Filtrat Rate mL/min Glucose Level 95 Calcium Level 10.2 Exam/Review of Systems Exam Vitals Vital Signs Date Temp Pulse Resp B/P (MAP) Pulse Ox O2 O2 Flow FiO2 Time Delivery Rate 03/01/19 76 18 100 Nasal 3.0 07:55 Cannula 03/01/19 98.2 133/60 07:18 (84) 02/28/19 21 13:56 Intake and Output 02/28/19 02/28/19 03/01/19 1515:00 23:00 07:00 IntakeIntake Total 250 ml 460 ml 700 ml OutputOutput Total 300 ml 150 ml BalanceBalance -50 ml 460 ml 550 ml Constitutional: frail Cardiovascular: regular rate and rhythm Results Results 24hrs Laboratory Tests Test 03/01/19 04:56 White Blood Count 11.7 H Red Blood Count 3.27 L Hemoglobin 8.9 L Hematocrit 27.8 L Mean Corpuscular Volume 85.0 Mean Corpuscular Hemoglobin 27.2 L Mean Corpuscular Hemoglobin Concent 32.0 Red Cell Distribution Width 15.3 H Platelet Count 178 # Mean Platelet Volume 11.5 H Immature Granulocytes % 0.300 Neutrophils % 69.1 Lymphocytes % 14.9 L Monocytes % 12.4 H Eosinophils % 3.0 Basophils % 0.3 Nucleated Red Blood Cells % 0.0 Immature Granulocytes # 0.030 Neutrophils # 8.1 H Lymphocytes # 1.8 Monocytes # 1.5 H Eosinophils # 0.4 Basophils # 0.0 Nucleated Red Blood Cells # 0.0 Sodium Level 132 L Potassium Level 4.4 Chloride Level 102 Carbon Dioxide Level 21 Anion Gap 9 Blood Urea Nitrogen 33 H Creatinine 1.32 H Est Glomerular Filtrat Rate mL/min Glucose Level 95 Calcium Level 10.2 Medications Medication Current Medications Acetaminophen (Tylenol Tab) 650 mg Q4 PRN PO MILD PAIN(1-3)OR ELEVATED TEMP Last administered on 02/22/19at 20:55; Admin Dose 650 MG; Start 02/06/19 at 00:00 Acetylcysteine (Mucomyst) 2 ml Q6H RESP THERAPY NEB Last administered on 03/01/19at 07:46; Admin Dose 2 ML; Start 02/06/19 at 02:00 Apixaban (Eliquis) 2.5 mg BID PO Last administered on 03/01/19at 08:57; Admin Dose 2.5 MG; Start 02/06/19 at 09:00 Atorvastatin Calcium (Lipitor) 20 mg QHS PO Last administered on 02/28/19 20:14; Admin Dose 20 MG; Start 02/06/19 at 21:00 Bupropion HCl (Wellbutrin Xl) 300 mg DAILY PO Last administered on 03/01/19 09:01; Admin Dose 300 MG; Start 02/06/19 at 09:00 Docusate Sodium (Colace) 100 mg QHS PO Last administered on 02/28/19 20:13; Admin Dose 100 MG; Start 02/06/19 at 21:00 Fluticasone/ Vilanterol (Breo Ellipta 200-25 Mcg Inh) 1 inh DAILY INH Last administered on 02/26/19 09:53; Admin Dose 1 INH; Start 02/06/19 at 09:00 Mirtazapine (Remeron) 15 mg HS PO Last administered on 02/28/19 20:15; Admin Dose 15 MG; Start 02/06/19 at 21:00 Pantoprazole (Protonix Tab) 40 mg AC BREAKFAST PO Last administered on 03/01/19 08:57; Admin Dose 40 MG; Start 02/06/19 at 07:20 IV Flush (NS 3 ml) 3 ml PER PROTOCOL IV Last administered on 02/06/19 00:04; Admin Dose 3 ML; Start 02/06/19 at 00:00 Ondansetron HCl (Zofran Inj) 4 mg Q6H PRN IV NAUSEA/VOMITING; Start 02/06/19 at 00:00 Magnesium Hydroxide (Milk Of Mag) 30 ml DAILY PRN PO .CONSTIPATION; Start 02/06/19 at 00:00 Sodium Biphosphate/ Sodium Phosphate (Fleet Enema) 133 ml DAILY PRN [place] .CONSTIPATION; Start 02/06/19 at 00:00 Miscellaneous Information (Pending [facility] Order For Wound Care) This patient sawyer... PRN PRN XX WOUND CARE; Start 02/06/19 at 08:00 Albuterol/ Ipratropium (Duoneb) 3 ml Q6H RESP THERAPY HHN Last administered on 03/01/19 07:46; Admin Dose 3 ML; Start 02/06/19 at 08:30 Metoprolol Tartrate (Lopressor) 25 mg BID PO Last administered on 03/01/19 09:00; Admin Dose 25 MG; Start 02/09/19 at 21:00 Doxycycline Hyclate (Vibramycin) 100 mg BID PO Last administered on 03/01/19 09:01; Admin Dose 100 MG; Start 02/12/19 at 21:00 Guaifenesin (Robitussin Liquid Cup) 200 mg Q4H PRN PO COUGH; Start 02/18/19 at 18:00 Cefepime HCl 50 ml @ 100 mls/hr Q24H IVPB Last administered on 02/28/19 20:13; Admin Dose 100 MLS/HR; Start 02/19/19 at 21:00; Stop 03/02/19 at 06:00 Megestrol Acetate (Megace Susp) 800 mg DAILY PO Last administered on 03/01/19 09:00; Admin Dose 800 MG; Start 02/25/19 at 18:30 Zinc Sulfate (Zinc Sulfate) 220 mg DAILY PO Last administered on 03/01/19 09:01; Admin Dose 220 MG; Start 02/28/19 at 09:00 Multivitamins Therapeutic (Theragran) 1 tab DAILY PO Last administered on 03/01/19 08:56; Admin Dose 1 TAB; Start 02/28/19 at 09:00 Ascorbic Acid (Vitamin C) 500 mg BID PO Last administered on 03/01/19 08:57; Admin Dose 500 MG; Start 02/28/19 at 09:00 Sodium Chloride 1,000 ml @ 50 mls/hr Q20H IV Last administered on 03/01/19 04:53; Admin Dose 50 MLS/HR; Start 02/28/19 at 10:00 Olanzapine (Zyprexa) 2.5 mg DAILY PO Last administered on 03/01/19 09:01; Admin Dose 2.5 MG; Start 03/01/19 at 09:00 NIKKY HENDRICKS MD March 01, 2019 10:46
[2019-03-01] MEDS: FLUTICASONE/VILANTEROL 200-25 INH DEVICE INH SCH (12:14)
[2019-03-01 15:10] VITALS: BP 129/61; PULSE 72; RESP 14
[2019-03-01 19:55] VITALS: BP 97/45; PULSE 80; RESP 18
[2019-03-01] MEDS: CEFEPIME 1GM/50 ML (PMX) 50 ML IVPB SCH (20:58)
[2019-03-01] MEDS: ATORVASTATIN 20 MG TAB PO SCH (20:59)
[2019-03-01] MEDS: DOCUSATE SODIUM 100 MG CAP PO SCH (20:59)
[2019-03-01] MEDS: MIRTAZAPINE 15 MG TAB PO SCH (21:00)
[2019-03-02] MEDS: ALBUTEROL/IPRATROPIUM (NEB) 3 ML AMP HHN SCH ×5 (01:34→20:30)
[2019-03-02] MEDS: ACETYLCYSTEINE 20% 4 ML VIAL NEB SCH ×5 (01:34→20:31)
[2019-03-02 02:18] VITALS: BP 117/83; PULSE 87; RESP 18
[2019-03-02] MEDS: PANTOPRAZOLE (EC) 40 MG TAB PO SCH (05:30)
[2019-03-02] MEDS: SOD CHLORIDE 0.9% 1,000 ML IV SCH ×2 (05:30→21:32)
[2019-03-02 08:29] VITALS: BP 112/59; PULSE 89; RESP 18
[2019-03-02] MEDS: FLUTICASONE/VILANTEROL 200-25 INH DEVICE INH SCH (09:00)
[2019-03-02] MEDS: MEGESTROL (40 MG/ML) 10ML CUP PO SCH (09:00)
[2019-03-02] MEDS: ZINC SULFATE 220 MG CAP PO SCH (09:37)
[2019-03-02] MEDS: DOXYCYCLINE 100 MG TAB PO SCH ×2 (09:42→21:30)
[2019-03-02] MEDS: MULTIVITAMINS THERAPEUTIC TAB PO SCH (09:42)
[2019-03-02] MEDS: APIXABAN 5 MG TABLET PO SCH ×2 (09:42→21:30)
[2019-03-02] MEDS: ASCORBIC ACID 500 MG TAB PO SCH ×2 (09:42→21:30)
[2019-03-02] MEDS: BUPROPION (XL) 150 MG TAB PO SCH (09:43)
[2019-03-02] MEDS: METOPROLOL 25 MG TAB PO SCH ×2 (09:43→21:31)
[2019-03-02] MEDS: OLANZAPINE 2.5 MG TAB PO SCH (09:43)
[2019-03-02] MEDS: BALSAM PERU/CASTOR OIL 60 GM TUBE TOP SCH ×2 (09:51→21:30)
--- NOTE | 2019-03-02 11:02 | PN ---
Date/Time of Note Date/Time of Note DATE: 03/02/19 TIME: 10:59 Assessment/Plan VTE Prophylaxis Risk score (from [facility] [place]0 risk: 7 SCD applied (from [facility] [place]): Yes Pharmacological prophylaxis: LMWH Lines/Catheters IV Catheter Type (from [facility] Mid Line Urinary Cath still in place: No Assessment/Plan Assessment/Plan (1) Hyponatremia Status: Acute Comment: Stop lexapro. currently resolved. na 137. on hydration (2) Lethargy Status: Acute (3) Cellulitis Status: Acute Comment: completed course of cefepime , now with mininal right elbow erythema. (4) Pyuria Status: Resolved- on chronic abx doxycycline til 03/13. (5) Sacral decubitus ulcer Status: Chronic Qualifiers: Pressure injury stage: stage 2 Qualified Codes: L89.152 - Pressure ulcer of sacral region, stage 2 (6) Anxiety and depression Status: Chronic Comment: stop lexapro due to low sodium. Add zyprexa for refractory depression. (7) COPD exacerbation Status: Acute (8) CHF (congestive heart failure) Status: Chronic (9) Malnutrition Status: Acute Comment: Started on megace, boost supplements and vitamins supplements. still po intake. anemia- cont to fluctuate. now hgb at 8.4 cont to watch. Result Diagram: 03/02/19 0852 03/02/19 0852 Results 24hrs Laboratory Tests Test 03/02/19 08:52 White Blood Count 12.1 H Red Blood Count 3.05 L Hemoglobin 8.4 L Hematocrit 26.3 L Mean Corpuscular Volume 86.2 Mean Corpuscular Hemoglobin 27.5 L Mean Corpuscular Hemoglobin Concent 31.9 L Red Cell Distribution Width 15.7 H Platelet Count 183 Mean Platelet Volume 12.0 H Immature Granulocytes % 0.300 Neutrophils % 72.1 Lymphocytes % 12.8 L Monocytes % 11.0 Eosinophils % 3.5 Basophils % 0.3 Nucleated Red Blood Cells % 0.0 Immature Granulocytes # 0.040 H Neutrophils # 8.8 H Lymphocytes # 1.6 Monocytes # 1.3 H Eosinophils # 0.4 Basophils # 0.0 Nucleated Red Blood Cells # 0.0 Sodium Level 137 Potassium Level 3.9 Chloride Level 109 Carbon Dioxide Level 20 L Anion Gap 8 Blood Urea Nitrogen 31 H Creatinine 1.39 H Est Glomerular Filtrat Rate mL/min Glucose Level 93 Calcium Level 10.1 Subjective 24 Hr Interval Summary Free Text/Dictation still with confusion. poor po intake. Exam/Review of Systems Exam Vitals Vital Signs Date Temp Pulse Resp B/P (MAP) Pulse Ox O2 O2 Flow FiO2 Time Delivery Rate 03/02/19 98.2 89 18 112/59 100 Nasal 08:29 (76) Cannula 03/02/19 3.0 07:21 02/28/19 21 13:56 Intake and Output 03/01/19 03/01/19 03/02/19 1515:00 23:00 07:00 IntakeIntake Total 100 ml 850 ml 400 ml OutputOutput Total 300 ml BalanceBalance 100 ml 850 ml 100 ml Respiratory: clear to auscultation Cardiovascular: regular rate and rhythm Results Results 24hrs Laboratory Tests Test 03/02/19 08:52 White Blood Count 12.1 H Red Blood Count 3.05 L Hemoglobin 8.4 L Hematocrit 26.3 L Mean Corpuscular Volume 86.2 Mean Corpuscular Hemoglobin 27.5 L Mean Corpuscular Hemoglobin Concent 31.9 L Red Cell Distribution Width 15.7 H Platelet Count 183 Mean Platelet Volume 12.0 H Immature Granulocytes % 0.300 Neutrophils % 72.1 Lymphocytes % 12.8 L Monocytes % 11.0 Eosinophils % 3.5 Basophils % 0.3 Nucleated Red Blood Cells % 0.0 Immature Granulocytes # 0.040 H Neutrophils # 8.8 H Lymphocytes # 1.6 Monocytes # 1.3 H Eosinophils # 0.4 Basophils # 0.0 Nucleated Red Blood Cells # 0.0 Sodium Level 137 Potassium Level 3.9 Chloride Level 109 Carbon Dioxide Level 20 L Anion Gap 8 Blood Urea Nitrogen 31 H Creatinine 1.39 H Est Glomerular Filtrat Rate mL/min Glucose Level 93 Calcium Level 10.1 Medications Medication Current Medications Acetaminophen (Tylenol Tab) 650 mg Q4 PRN PO MILD PAIN(1-3)OR ELEVATED TEMP Last administered on 02/22/19at 20:55; Admin Dose 650 MG; Start 02/06/19 at 00:00 Acetylcysteine (Mucomyst) 2 ml Q6H RESP THERAPY NEB Last administered on 03/02/19at 07:21; Admin Dose 2 ML; Start 02/06/19 at 02:00 Apixaban (Eliquis) 2.5 mg BID PO Last administered on 03/02/19 09:42; Admin Dose 2.5 MG; Start 02/06/19 at 09:00 Atorvastatin Calcium (Lipitor) 20 mg QHS PO Last administered on 03/01/19 20:59; Admin Dose 20 MG; Start 02/06/19 at 21:00 Bupropion HCl (Wellbutrin Xl) 300 mg DAILY PO Last administered on 03/02/19 09:43; Admin Dose 300 MG; Start 02/06/19 at 09:00 Docusate Sodium (Colace) 100 mg QHS PO Last administered on 03/01/19 20:59; Admin Dose 100 MG; Start 02/06/19 at 21:00 Fluticasone/ Vilanterol (Breo Ellipta 200-25 Mcg Inh) 1 inh DAILY INH Last administered on 03/01/19 12:14; Admin Dose 1 INH; Start 02/06/19 at 09:00 Mirtazapine (Remeron) 15 mg HS PO Last administered on 03/01/19 21:00; Admin Dose 15 MG; Start 02/06/19 at 21:00 Pantoprazole (Protonix Tab) 40 mg AC BREAKFAST PO Last administered on 03/02/19 05:30; Admin Dose 40 MG; Start 02/06/19 at 07:20 IV Flush (NS 3 ml) 3 ml PER PROTOCOL IV Last administered on 02/06/19 00:04; Admin Dose 3 ML; Start 02/06/19 at 00:00 Ondansetron HCl (Zofran Inj) 4 mg Q6H PRN IV NAUSEA/VOMITING; Start 02/06/19 at 00:00 Magnesium Hydroxide (Milk Of Mag) 30 ml DAILY PRN PO .CONSTIPATION; Start 02/06/19 at 00:00 Sodium Biphosphate/ Sodium Phosphate (Fleet Enema) 133 ml DAILY PRN [place] .CONSTIPATION; Start 02/06/19 at 00:00 Miscellaneous Information (Pending [facility] Order For Wound Care) This patient sawyer... PRN PRN XX WOUND CARE; Start 02/06/19 at 08:00 Albuterol/ Ipratropium (Duoneb) 3 ml Q6H RESP THERAPY HHN Last administered on 03/02/19 07:21; Admin Dose 3 ML; Start 02/06/19 at 08:30 Metoprolol Tartrate (Lopressor) 25 mg BID PO Last administered on 03/02/19 0 9:43; Admin Dose 25 MG; Start 02/09/19 at 21:00 Doxycycline Hyclate (Vibramycin) 100 mg BID PO Last administered on 03/02/19 09:42; Admin Dose 100 MG; Start 02/12/19 at 21:00 Guaifenesin (Robitussin Liquid Cup) 200 mg Q4H PRN PO COUGH; Start 02/18/19 at 18:00 Megestrol Acetate (Megace Susp) 800 mg DAILY PO Last administered on 03/01/19 09:00; Admin Dose 800 MG; Start 02/25/19 at 18:30 Zinc Sulfate (Zinc Sulfate) 220 mg DAILY PO Last administered on 03/02/19 09:37; Admin Dose 220 MG; Start 02/28/19 at 09:00 Multivitamins Therapeutic (Theragran) 1 tab DAILY PO Last administered on 03/02/19 09:42; Admin Dose 1 TAB; Start 02/28/19 at 09:00 Ascorbic Acid (Vitamin C) 500 mg BID PO Last administered on 03/02/19 09:42; Admin Dose 500 MG; Start 02/28/19 at 09:00 Sodium Chloride 1,000 ml @ 50 mls/hr Q20H IV Last administered on 03/02/19 05:30; Admin Dose 50 MLS/HR; Start 02/28/19 at 10:00 Olanzapine (Zyprexa) 2.5 mg DAILY PO Last administered on 03/02/19 09:43; Admin Dose 2.5 MG; Start 03/01/19 at 09:00 NIKKY HENDRICKS MD March 02, 2019 11:02
[2019-03-02 15:09] VITALS: BP 129/74; PULSE 87
[2019-03-02 19:40] VITALS: BP 114/53; PULSE 75; RESP 18
[2019-03-02] MEDS: MIRTAZAPINE 15 MG TAB PO SCH (21:30)
[2019-03-02] MEDS: DOCUSATE SODIUM 100 MG CAP PO SCH (21:30)
[2019-03-02] MEDS: ATORVASTATIN 20 MG TAB PO SCH (21:31)
[2019-03-03 02:22] VITALS: BP 117/52; PULSE 98; RESP 16
[2019-03-03] MEDS: ACETYLCYSTEINE 20% 4 ML VIAL NEB SCH ×5 (02:24→20:00)
[2019-03-03] MEDS: ALBUTEROL/IPRATROPIUM (NEB) 3 ML AMP HHN SCH ×5 (02:24→20:34)
[2019-03-03] MEDS: PANTOPRAZOLE (EC) 40 MG TAB PO SCH (06:08)
[2019-03-03 07:26] VITALS: BP 143/60; PULSE 79; RESP 18
--- NOTE | 2019-03-03 07:55 | CONS ---
Assessment/Plan Assessment/Plan Hospital Course (Demo Recall) 1) lethargy this seems to wax and wane pt's caregiver that last time he was in the hospital he got more lethargic from the meds he was given I doubt infection is causing his lethargy at this time 02/18 - pt less lethargic this a.m. but has confusion 5/6 - very poor po intake if no G-tube is planned consider hospice care 2) pyuria initial urine cx grew 50k c.glabrata and repeat shows <10k of c.alb I doubt either one is the cause of his pyuria agree to stopping of cefepime since he has neg cx for bacteria x2 I doubt he has an active UTI he may have some prostatitis and a trial of doxycycline to treat atypicals might be of benefit I will start doxycycline to treat possible prostatitis and if his pyuria does not resolve then I would recommend urology consult 02/13 - pt tolerating his doxycycline so far, continue for one month and re-check u/a, urine cx 1 week after he is done with his antibiotics 02/17 - due to elevated WBC will re-order u/a and urine cx 02/18 - pyuria persists urine cx has 5K colonies of likely enterococcus which is not significant continue doxycycline at present consider urology consult I will order urine for AFB cx 02/19 - urine cx from 02/17 only had 5k of enterococcus urine cx from 02/[address] Hancock noted pus in his urine when he urinated and believes pt retains small amout of pus in bladder due to small amout of residual urine left when he urinates pt has been placed on ampho B bladder irrigation, if repeat urine cx from yesterday remains neg can d/c the ampho B doubt pt would benefit from IV ampho B, if vijay is present the bladder irrigation should be sufficient continue with doxycycline CT shows no change in hyperdense mass to L lower kidney 02/20 - ur cx has >100k of yeast continue with ampho B irrigation (5 days as originally planned by Dr. Hancock) 02/24 - pt's 5th day of ampho B bladder irrigation was finished yesterday evening will order repeat u/a and urine cx 02/25 - repeat u/a is good, no significant pyuria/hematuria continue with doxycycline 02/26 - urine cx is negative continue with doxycycline thru 03/13 3) COPD breathing is currently stable 02/17- CXR does not show raimundo pneumonia, his O2 sats have been stable will order procalcitonin, doubt he has pneumonia 02/18 - breathing is stable and pt appears comfortable procalcitonin is pending WBC is down a bit today CT chest is pending 02/19 - CT chest has smaller amount of infiltrates to lower lungs, doubt he has active pneumonia 02/20 - stable, procalcitonin is pending 02/21 - cefepime was started by Dr. Frias if procalcitonin comes back neg to d/c cefepime then 02/24 - procalcitonin was marginally elevated on cefepime, to repeat procalcitonin today 02/25 - procalcitonin now done in house, to order it for tomorrow a.m. 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 5) hx of DVT 6) CAD 7) HTN 8) hx of CVA 9) leukocytosis 02/17 - unexplained, no obvious source of infection CXR shows atelectasis/small pleural effusions and no change in O2 sats will order procalcitonin, u/a and urine cx 02/18 - urine cx only has 5k colonies of likely enterococcus which is not significant breathing is stable no diarrhea WBC a bit improved no additional antibiotics at this time CT chest/abd/pelv is pending 02/20 - RUE is swollen, will order RUE venous doppler continue with ampho B bladder irrigation and doxycycline await procalcitonin if elevated will start pneumonia treatment repeat urine cx has >100k yeast but doubt this is the source for his leukocytosis check cbc, cmp in a.m. pt has persistent hypercalcemia 02/21 - RUE venous doppler was neg and swelling is less doubt he has cellulitis and doxycycline has excellent staph coverage, to d/c vanco on cefepime for possible pneumonia, if procalcitonin on 02/18 comes back neg then will d/c cefepime pt to complete his ampho B bladder irrigation after dose on 02/22 02/23 - improved WBC today pt has RUE IV infiltrated with small pustules and redness noted I have ordered cx of these pustules, continue with cefepime/doxy at present repeat u/a and urine cx now that ampho B bladder irrigation was completed last evening repeat procalcitonin this a.m. 02/26 - improved urine cx is neg wound cx from former IV site is growing e.coli+esbl, sensitive to cefepime, continue this for another 4 days 02/27 - procalcitonin was neg, so no active bacterial infection of lung 02/28 - doubt WBC scan will be useful 03/03 - WBC scan was neg 10) R forearm IV site infection 02/26 - due to e.coli+ESBL blood cx were negative though continue cefepime thru 03/01 02/27 - doubt yeast, CoNS or enterococcus are significant continue with cefepime thru 03/01 02/28 - this is improved on cefepime thru 03/01 (stop date put in ) 03/03 - stable WBC off cefepime no sign of forearm infection now I will sign off on case, thank you Consultation Date/Type/Reason Admit Date/Time Feb 05, 2019 at 20:14 Initial Consult Date 02/12/19 Type of Consult ID Requesting Provider: BREEZY FRIAS MD Date/Time of Note DATE: 03/03/19 TIME: 07:48 24 HR Interval Summary Free Text/Dictation no new problems no V, D pt has poor po intake Exam/Review of Systems Exam Vitals Vital Signs Date Temp Pulse Resp B/P (MAP) Pulse Ox O2 O2 Flow FiO2 Time Delivery Rate 03/03/19 98.3 79 18 143/60 96 Room Air 07:26 (87) 03/03/19 2.0 02:25 03/02/19 30 20:32 Intake and Output 03/02/19 03/02/19 03/03/19 1515:00 23:00 07:00 IntakeIntake Total 240 ml 1610 ml 400 ml OutputOutput Total 375 ml 100 ml 100 ml BalanceBalance -135 ml 1510 ml 300 ml Constitutional: non-verbal Respiratory: other (mild expiratory wheezing) Cardiovascular: regular rate and rhythm Gastrointestinal: soft, non-tender Extremities: other (R forearm cellulitis is resolved) Results Result Diagram: 03/03/19 0418 03/03/19 0418 Results 24hrs Laboratory Tests Test 03/02/19 08:52 03/03/19 04:18 White Blood Count 12.1 H 12.0 H Red Blood Count 3.05 L 3.02 L Hemoglobin 8.4 L 8.2 L Hematocrit 26.3 L 26.5 L Mean Corpuscular Volume 86.2 87.7 Mean Corpuscular Hemoglobin 27.5 L 27.2 L Mean Corpuscular Hemoglobin Concent 31.9 L 30.9 L Red Cell Distribution Width 15.7 H 15.9 H Platelet Count 183 197 Mean Platelet Volume 12.0 H 11.7 H Immature Granulocytes % 0.300 0.300 Neutrophils % 72.1 70.0 Lymphocytes % 12.8 L 14.0 L Monocytes % 11.0 11.6 H Eosinophils % 3.5 3.7 Basophils % 0.3 0.4 Nucleated Red Blood Cells % 0.0 0.0 Immature Granulocytes # 0.040 H 0.040 H Neutrophils # 8.8 H 8.4 H Lymphocytes # 1.6 1.7 Monocytes # 1.3 H 1.4 H Eosinophils # 0.4 0.4 Basophils # 0.0 0.1 Nucleated Red Blood Cells # 0.0 0.0 Sodium Level 137 141 Potassium Level 3.9 4.1 Chloride Level 109 113 H Carbon Dioxide Level 20 L 22 Anion Gap 8 6 Blood Urea Nitrogen 31 H 28 H Creatinine 1.39 H 1.39 H Est Glomerular Filtrat Rate mL/min Glucose Level 93 86 Calcium Level 10.1 10.4 H Medications Medication Current Medications Acetaminophen (Tylenol Tab) 650 mg Q4 PRN PO MILD PAIN(1-3)OR ELEVATED TEMP Last administered on 02/22/19at 20:55; Admin Dose 650 MG; Start 02/06/19 at 00:00 Acetylcysteine (Mucomyst) 2 ml Q6H RESP THERAPY NEB Last administered on 03/03/19 02:24; Admin Dose 2 ML; Start 02/06/19 at 02:00 Apixaban (Eliquis) 2.5 mg BID PO Last administered on 03/02/19 21:30; Admin Dose 2.5 MG; Start 02/06/19 at 09:00 Atorvastatin Calcium (Lipitor) 20 mg QHS PO Last administered on 03/02/19 21:31; Admin Dose 20 MG; Start 02/06/19 at 21:00 Bupropion HCl (Wellbutrin Xl) 300 mg DAILY PO Last administered on 03/02/19 09:43; Admin Dose 300 MG; Start 02/06/19 at 09:00 Docusate Sodium (Colace) 100 mg QHS PO Last administered on 03/02/19 21:30; Admin Dose 100 MG; Start 02/06/19 at 21:00 Fluticasone/ Vilanterol (Breo Ellipta 200-25 Mcg Inh) 1 inh DAILY INH Last administered on 03/01/19 12:14; Admin Dose 1 INH; Start 02/06/19 at 09:00 Mirtazapine (Remeron) 15 mg HS PO Last administered on 03/02/19 21:30; Admin Dose 15 MG; Start 02/06/19 at 21:00 Pantoprazole (Protonix Tab) 40 mg AC BREAKFAST PO Last administered on 03/02/19 05:30; Admin Dose 40 MG; Start 02/06/19 at 07:20 IV Flush (NS 3 ml) 3 ml PER PROTOCOL IV Last administered on 02/06/19 00:04; Admin Dose 3 ML; Start 02/06/19 at 00:00 Ondansetron HCl (Zofran Inj) 4 mg Q6H PRN IV NAUSEA/VOMITING; Start 02/06/19 at 00:00 Magnesium Hydroxide (Milk Of Mag) 30 ml DAILY PRN PO .CONSTIPATION; Start 02/06/19 at 00:00 Sodium Biphosphate/ Sodium Phosphate (Fleet Enema) 133 ml DAILY PRN [place] .CONSTIPATION; Start 02/06/19 at 00:00 Miscellaneous Information (Pending [facility] Order For Wound Care) This patient sawyer... PRN PRN XX WOUND CARE; Start 02/06/19 at 08:00 Albuterol/ Ipratropium (Duoneb) 3 ml Q6H RESP THERAPY HHN Last administered on 03/03/19 02:24; Admin Dose 3 ML; Start 02/06/19 at 08:30 Metoprolol Tartrate (Lopressor) 25 mg BID PO Last administered on 03/02/19 21:31; Admin Dose 25 MG; Start 02/09/19 at 21:00 Doxycycline Hyclate (Vibramycin) 100 mg BID PO Last administered on 03/02/19 21:30; Admin Dose 100 MG; Start 02/12/19 at 21:00 Guaifenesin (Robitussin Liquid Cup) 200 mg Q4H PRN PO COUGH; Start 02/18/19 at 18:00 Megestrol Acetate (Megace Susp) 800 mg DAILY PO Last administered on 03/01/19 09:00; Admin Dose 800 MG; Start 02/25/19 at 18:30 Zinc Sulfate (Zinc Sulfate) 220 mg DAILY PO Last administered on 03/02/19 09:37; Admin Dose 220 MG; Start 02/28/19 at 09:00 Multivitamins Therapeutic (Theragran) 1 tab DAILY PO Last administered on 03/02/19 09:42; Admin Dose 1 TAB; Start 02/28/19 at 09:00 Ascorbic Acid (Vitamin C) 500 mg BID PO Last administered on 03/02/19 21:30; Admin Dose 500 MG; Start 02/28/19 at 09:00 Sodium Chloride 1,000 ml @ 50 mls/hr Q20H IV Last administered on 03/02/19 21:32; Admin Dose 50 MLS/HR; Start 02/28/19 at 10:00 Olanzapine (Zyprexa) 2.5 mg DAILY PO Last administered on 03/02/19 09:43; Admin Dose 2.5 MG; Start 03/01/19 at 09:00 MIGUELITO VASQUEZ MD March 03, 2019 07:55
[2019-03-03] MEDS: FLUTICASONE/VILANTEROL 200-25 INH DEVICE INH SCH (09:00)
[2019-03-03] MEDS: MEGESTROL (40 MG/ML) 10ML CUP PO SCH (09:00)
[2019-03-03] MEDS: BUPROPION (XL) 150 MG TAB PO SCH (09:00)
[2019-03-03] MEDS: ZINC SULFATE 220 MG CAP PO SCH (09:29)
[2019-03-03] MEDS: APIXABAN 5 MG TABLET PO SCH ×2 (09:30→21:32)
[2019-03-03] MEDS: DOXYCYCLINE 100 MG TAB PO SCH ×2 (09:30→21:32)
[2019-03-03] MEDS: ASCORBIC ACID 500 MG TAB PO SCH ×2 (09:30→21:33)
[2019-03-03] MEDS: METOPROLOL 25 MG TAB PO SCH ×2 (09:30→21:00)
[2019-03-03] MEDS: OLANZAPINE 2.5 MG TAB PO SCH (09:30)
[2019-03-03] MEDS: MULTIVITAMINS THERAPEUTIC TAB PO SCH (09:30)
[2019-03-03] MEDS: SOD CHLORIDE 0.9% 1,000 ML IV SCH (09:42)
[2019-03-03] MEDS: BALSAM PERU/CASTOR OIL 60 GM TUBE TOP SCH ×2 (09:44→21:35)
[2019-03-03 16:04] VITALS: BP 136/67; PULSE 74; RESP 18
--- NOTE | 2019-03-03 17:38 | PN ---
Date/Time of Note Date/Time of Note DATE: 03/03/19 TIME: 17:37 Assessment/Plan VTE Prophylaxis Risk score (from [facility])>0 risk: 7 SCD applied (from [facility]): Yes Pharmacological prophylaxis: apixaban Lines/Catheters IV Catheter Type (from [facility] Mid Line Urinary Cath still in place: No Assessment/Plan Hospital Course Patient was admitted with altered mental status and acute dehydration and leukouria. His mental status and dehydration improved with IV fluids and cefepime which were stopped when urine culture grew vijay glabata but no bacteria. Repeat cath UA still shows marked leukouria but culture grew vijay albicans. ID consult recommended treatment for prostatitis with 1 month of doxycycline. Patient was able to feed himself but needs full assist in transfer and ambulation even with PT treatment for a week. Was supposed to go to [facility] for continued therapy but patient developed leukocytosis and increased confusion just prior to discharge. Problems: (1) Lethargy Status: Acute Comment: maybe due to meds or other issues. Will check thyroid, cortisol and testosterone levels and trial of discontinuation of all psych meds. (2) Leukocytosis Status: Acute Comment: Improving slowly. (3) Malnutrition Status: Acute Comment: Patient not eating due to altered mental status , will try holding psych meds to see if he wakes up. (4) Cellulitis Status: Resolved (5) Sacral decubitus ulcer Status: Chronic Qualifiers: Pressure injury stage: stage 2 Qualified Codes: L89.152 - Pressure ulcer of sacral region, stage 2 Result Diagram: 03/03/19 0418 03/03/19 0418 Results 24hrs Laboratory Tests Test 03/03/19 04:18 White Blood Count 12.0 H Red Blood Count 3.02 L Hemoglobin 8.2 L Hematocrit 26.5 L Mean Corpuscular Volume 87.7 Mean Corpuscular Hemoglobin 27.2 L Mean Corpuscular Hemoglobin Concent 30.9 L Red Cell Distribution Width 15.9 H Platelet Count 197 Mean Platelet Volume 11.7 H Immature Granulocytes % 0.300 Neutrophils % 70.0 Lymphocytes % 14.0 L Monocytes % 11.6 H Eosinophils % 3.7 Basophils % 0.4 Nucleated Red Blood Cells % 0.0 Immature Granulocytes # 0.040 H Neutrophils # 8.4 H Lymphocytes # 1.7 Monocytes # 1.4 H Eosinophils # 0.4 Basophils # 0.1 Nucleated Red Blood Cells # 0.0 Sodium Level 141 Potassium Level 4.1 Chloride Level 113 H Carbon Dioxide Level 22 Anion Gap 6 Blood Urea Nitrogen 28 H Creatinine 1.39 H Est Glomerular Filtrat Rate mL/min Glucose Level 86 Calcium Level 10.4 H Subjective 24 Hr Interval Summary Free Text/Dictation Patient is lethargic and bareky arousable but responsive to certain inquiries. said he would eat if he has hamburger. Exam/Review of Systems Exam Vitals Vital Signs Date Temp Pulse Resp B/P (MAP) Pulse Ox O2 O2 Flow FiO2 Time Delivery Rate 03/03/19 98.0 74 18 136/67 96 Room Air 16:04 (90) 03/03/19 2.0 13:49 03/02/19 30 20:32 Intake and Output 03/02/19 03/02/19 03/03/19 1515:00 23:00 07:00 IntakeIntake Total 240 ml 1610 ml 400 ml OutputOutput Total 375 ml 100 ml 100 ml BalanceBalance -135 ml 1510 ml 300 ml Exam nursing reports the patient has not been taking many of his medications because he is either too lethargic or refuses to open his mouth. Some days he would be quite awake and alert but most days he would be very lethargic and sleepy. and I discussed a trial of holding off all of his antidepressants and seeing if any of these medications may be causing lethargy or altered mental status. Psych: no complaints Head: normocephalic Respiratory: clear to auscultation Cardiovascular: regular rate and rhythm Gastrointestinal: soft Musculoskeletal: other Results Results 24hrs Laboratory Tests Test 03/03/19 04:18 White Blood Count 12.0 H Red Blood Count 3.02 L Hemoglobin 8.2 L Hematocrit 26.5 L Mean Corpuscular Volume 87.7 Mean Corpuscular Hemoglobin 27.2 L Mean Corpuscular Hemoglobin Concent 30.9 L Red Cell Distribution Width 15.9 H Platelet Count 197 Mean Platelet Volume 11.7 H Immature Granulocytes % 0.300 Neutrophils % 70.0 Lymphocytes % 14.0 L Monocytes % 11.6 H Eosinophils % 3.7 Basophils % 0.4 Nucleated Red Blood Cells % 0.0 Immature Granulocytes # 0.040 H Neutrophils # 8.4 H Lymphocytes # 1.7 Monocytes # 1.4 H Eosinophils # 0.4 Basophils # 0.1 Nucleated Red Blood Cells # 0.0 Sodium Level 141 Potassium Level 4.1 Chloride Level 113 H Carbon Dioxide Level 22 Anion Gap 6 Blood Urea Nitrogen 28 H Creatinine 1.39 H Est Glomerular Filtrat Rate mL/min Glucose Level 86 Calcium Level 10.4 H Medications Medication Current Medications Acetaminophen (Tylenol Tab) 650 mg Q4 PRN PO MILD PAIN(1-3)OR ELEVATED TEMP Last administered on 02/22/19 20:55; Admin Dose 650 MG; Start 02/06/19 at 00:00 Acetylcysteine (Mucomyst) 2 ml Q6H RESP THERAPY NEB Last administered on 03/03/19 13:46; Admin Dose 2 ML; Start 02/06/19 at 02:00 Apixaban (Eliquis) 2.5 mg BID PO Last administered on 03/03/19 09:30; Admin Dose 2.5 MG; Start 02/06/19 at 09:00 Atorvastatin Calcium (Lipitor) 20 mg QHS PO Last administered on 03/02/19 21:31; Admin Dose 20 MG; Start 02/06/19 at 21:00 Bupropion HCl (Wellbutrin Xl) 300 mg DAILY PO Last administered on 03/02/19 09:43; Admin Dose 300 MG; Start 02/06/19 at 09:00 Docusate Sodium (Colace) 100 mg QHS PO Last administered on 03/02/19 21:30; Admin Dose 100 MG; Start 02/06/19 at 21:00 Fluticasone/ Vilanterol (Breo Ellipta 200-25 Mcg Inh) 1 inh DAILY INH Last administered on 03/01/19 12:14; Admin Dose 1 INH; Start 02/06/19 at 09:00 Mirtazapine (Remeron) 15 mg HS PO Last administered on 03/02/19 21:30; Admin D ose 15 MG; Start 02/06/19 at 21:00 Pantoprazole (Protonix Tab) 40 mg AC BREAKFAST PO Last administered on 03/02/19 05:30; Admin Dose 40 MG; Start 02/06/19 at 07:20 IV Flush (NS 3 ml) 3 ml PER PROTOCOL IV Last administered on 02/06/19 00:04; Admin Dose 3 ML; Start 02/06/19 at 00:00 Ondansetron HCl (Zofran Inj) 4 mg Q6H PRN IV NAUSEA/VOMITING; Start 02/06/19 at 00:00 Magnesium Hydroxide (Milk Of Mag) 30 ml DAILY PRN PO .CONSTIPATION; Start 02/06/19 at 00:00 Sodium Biphosphate/ Sodium Phosphate (Fleet Enema) 133 ml DAILY PRN [place] .CONSTIPATION; Start 02/06/19 at 00:00 Miscellaneous Information ([facility]) This patient sawyer... PRN PRN XX WOUND CARE; Start 02/06/19 at 08:00 Albuterol/ Ipratropium (Duoneb) 3 ml Q6H RESP THERAPY HHN Last administered on 03/03/19 13:46; Admin Dose 3 ML; Start 02/06/19 at 08:30 Metoprolol Tartrate (Lopressor) 25 mg BID PO Last administered on 03/03/19 09:30; Admin Dose 25 MG; Start 02/09/19 at 21:00 Doxycycline Hyclate (Vibramycin) 100 mg BID PO Last administered on 03/03/19 09:30; Admin Dose 100 MG; Start 02/12/19 at 21:00 Guaifenesin (Robitussin Liquid Cup) 200 mg Q4H PRN PO COUGH; Start 02/18/19 at 18:00 Megestrol Acetate (Megace Susp) 800 mg DAILY PO Last administered on 03/01/19 09:00; Admin Dose 800 MG; Start 02/25/19 at 18:30 Zinc Sulfate (Zinc Sulfate) 220 mg DAILY PO Last administered on 03/03/19 09:29; Admin Dose 220 MG; Start 02/28/19 at 09:00 Multivitamins Therapeutic (Theragran) 1 tab DAILY PO Last administered on 03/03/19 09:30; Admin Dose 1 TAB; Start 02/28/19 at 09:00 Ascorbic Acid (Vitamin C) 500 mg BID PO Last administered on 03/03/19 09:30; Admin Dose 500 MG; Start 02/28/19 at 09:00 Sodium Chloride 1,000 ml @ 50 mls/hr Q20H IV Last administered on 03/03/19 09:42; Admin Dose 50 MLS/HR; Start 02/28/19 at 10:00 Olanzapine (Zyprexa) 2.5 mg DAILY PO Last administered on 03/03/19at 09:30; Admin Dose 2.5 MG; Start 03/01/19 at 09:00 Nystatin (Nystatin Powder) 1 applic BID TOP ; Start 03/03/19 at 15:30 BREEZY FRIAS MD March 03, 2019 17:38
[2019-03-03] MEDS: NYSTATIN 30 GM POWDER BTL TOP SCH ×2 (18:18→21:33)
[2019-03-03 21:05] VITALS: BP 93/51; PULSE 82; RESP 18
[2019-03-03] MEDS: DOCUSATE SODIUM 100 MG CAP PO SCH (21:32)
[2019-03-03] MEDS: MIRTAZAPINE 15 MG TAB PO SCH (21:32)
[2019-03-03] MEDS: ATORVASTATIN 20 MG TAB PO SCH (21:45)
[2019-03-04] MEDS: ACETYLCYSTEINE 20% 4 ML VIAL NEB SCH ×4 (01:35→19:32)
[2019-03-04] MEDS: ALBUTEROL/IPRATROPIUM (NEB) 3 ML AMP HHN SCH ×4 (01:35→19:32)
[2019-03-04] MEDS: SOD CHLORIDE 0.9% 1,000 ML IV SCH (06:43)
[2019-03-04 08:23] VITALS: BP 144/67; PULSE 88; RESP 18
[2019-03-04] MEDS: FLUTICASONE/VILANTEROL 200-25 INH DEVICE INH SCH (09:00)
[2019-03-04] MEDS: APIXABAN 5 MG TABLET PO SCH ×2 (09:42→21:59)
[2019-03-04] MEDS: BALSAM PERU/CASTOR OIL 60 GM TUBE TOP SCH ×2 (09:42→22:00)
[2019-03-04] MEDS: NYSTATIN 30 GM POWDER BTL TOP SCH ×2 (09:42→22:00)
[2019-03-04] MEDS: DOXYCYCLINE 100 MG TAB PO SCH ×2 (09:43→21:59)
[2019-03-04 15:23] VITALS: BP 125/52; PULSE 83; RESP 18
--- NOTE | 2019-03-04 17:49 | PN ---
Date/Time of Note Date/Time of Note DATE: 03/04/19 TIME: 17:43 Assessment/Plan VTE Prophylaxis Risk score (from [facility])>0 risk: 7 SCD applied (from [facility]): Yes Pharmacological prophylaxis: apixaban Lines/Catheters IV Catheter Type (from [facility] Mid Line Urinary Cath still in place: No Assessment/Plan Hospital Course Patient was admitted with altered mental status and acute dehydration and leukouria. His mental status and dehydration improved with IV fluids and cefepime which were stopped when urine culture grew vijay glabata but no bacteria. Repeat cath UA still shows marked leukouria but culture grew vijay albicans. ID consult recommended treatment for prostatitis with 1 month of doxycycline. Patient was able to feed himself but needs full assist in transfer and ambulation even with PT treatment for a week. Was supposed to go to [facility] for continued therapy but patient developed leukocytosis and increased confusion just prior to discharge. Work up showed recurrent pyuria and Urology media consultant outside sales recommended amphotericin bladder washings for 5 days. Patient was also found to have right elbow cellulitis with multiple organisms on cultures. He was treated with Cefepime and Doxycycline . His pyuria improved after treatment but lethargy and altered mental status persisted with the additional issue of malnutrition since patient refuses to eat when he is lethargic. Patient has fluctuating mental status with some days being awake and alert and responsive and some days he is somnolent all day. At 's request, we discontinued all psychotropic meds to see if his lethargy gets better. Result Diagram: 03/04/19 0511 03/03/19 0418 Results 24hrs Laboratory Tests Test 03/04/19 05:10 03/04/19 05:11 Iron Level 23 L Total Iron Binding Capacity 157 L Percent Iron Saturation 15 L Thyroid Stimulating Hormone (TSH) 2.150 Free Thyroxine 1.15 Free Triiodothyronine (T3) pg/mL 4.49 Random Cortisol 8.4 White Blood Count 13.8 H Red Blood Count 3.19 L Hemoglobin 8.7 L Hematocrit 28.5 L Mean Corpuscular Volume 89.3 Mean Corpuscular Hemoglobin 27.3 L Mean Corpuscular Hemoglobin Concent 30.5 L Red Cell Distribution Width 16.2 H Platelet Count 196 Mean Platelet Volume 12.1 H Immature Granulocytes % 0.300 Neutrophils % 71.1 Lymphocytes % 13.7 L Monocytes % 10.4 Eosinophils % 4.1 Basophils % 0.4 Nucleated Red Blood Cells % 0.0 Immature Granulocytes # 0.040 H Neutrophils # 9.8 H Lymphocytes # 1.9 Monocytes # 1.4 H Eosinophils # 0.6 H Basophils # 0.1 Nucleated Red Blood Cells # 0.0 Subjective 24 Hr Interval Summary Free Text/Dictation Patient more lethargic today. Exam/Review of Systems Exam Vitals Vital Signs Date Temp Pulse Resp B/P (MAP) Pulse Ox O2 O2 Flow FiO2 Time Delivery Rate 03/04/19 98.1 83 18 125/52 95 Room Air 15:23 (76) 03/04/19 21 14:42 03/04/19 2.0 09:00 Intake and Output 03/03/19 03/03/19 03/04/19 1515:00 23:00 07:00 IntakeIntake Total 600 ml 450 ml 850 ml OutputOutput Total 200 ml BalanceBalance 400 ml 450 ml 850 ml Exam Not eating , drinking or taking meds past 12 hours due to lethargy. ENMT: nl external ears & nose Respiratory: congested cough, diminished breath sounds Cardiovascular: regular rate and rhythm Gastrointestinal: soft Musculoskeletal: nl extremities to inspection, other (right elbow skin normal now.) Results Results 24hrs Laboratory Tests Test 03/04/19 05:10 03/04/19 05:11 Iron Level 23 L Total Iron Binding Capacity 157 L Percent Iron Saturation 15 L Thyroid Stimulating Hormone (TSH) 2.150 Free Thyroxine 1.15 Free Triiodothyronine (T3) pg/mL 4.49 Random Cortisol 8.4 White Blood Count 13.8 H Red Blood Count 3.19 L Hemoglobin 8.7 L Hematocrit 28.5 L Mean Corpuscular Volume 89.3 Mean Corpuscular Hemoglobin 27.3 L Mean Corpuscular Hemoglobin Concent 30.5 L Red Cell Distribution Width 16.2 H Platelet Count 196 Mean Platelet Volume 12.1 H Immature Granulocytes % 0.300 Neutrophils % 71.1 Lymphocytes % 13.7 L Monocytes % 10.4 Eosinophils % 4.1 Basophils % 0.4 Nucleated Red Blood Cells % 0.0 Immature Granulocytes # 0.040 H Neutrophils # 9.8 H Lymphocytes # 1.9 Monocytes # 1.4 H Eosinophils # 0.6 H Basophils # 0.1 Nucleated Red Blood Cells # 0.0 Medications Medication Current Medications Acetaminophen (Tylenol Tab) 650 mg Q4 PRN PO MILD PAIN(1-3)OR ELEVATED TEMP Last administered on 02/22/19 20:55; Admin Dose 650 MG; Start 02/06/19 at 00:00 Acetylcysteine (Mucomyst) 2 ml Q6H RESP THERAPY NEB Last administered on 03/04/19 14:42; Admin Dose 2 ML; Start 02/06/19 at 02:00 Apixaban (Eliquis) 2.5 mg BID PO Last administered on 03/04/19 09:42; Admin Dose 2.5 MG; Start 02/06/19 at 09:00 Docusate Sodium (Colace) 100 mg QHS PO Last administered on 03/03/19 21:32; Admin Dose 100 MG; Start 02/06/19 at 21:00 Fluticasone/ Vilanterol (Breo Ellipta 200-25 Mcg Inh) 1 inh DAILY INH Last administered on 03/01/19 12:14; Admin Dose 1 INH; Start 02/06/19 at 09:00 IV Flush (NS 3 ml) 3 ml PER PROTOCOL IV Last administered on 02/06/19 00:04; Admin Dose 3 ML; Start 02/06/19 at 00:00 Ondansetron HCl (Zofran Inj) 4 mg Q6H PRN IV NAUSEA/VOMITING; Start 02/06/19 at 00:00 Magnesium Hydroxide (Milk Of Mag) 30 ml DAILY PRN PO .CONSTIPATION; Start 02/06/19 at 00:00 Sodium Biphosphate/ Sodium Phosphate (Fleet Enema) 133 ml DAILY PRN [place] .CONSTIPATION; Start 02/06/19 at 00:00 Miscellaneous Information [facility] This patient sawyer... PRN PRN XX WOUND CARE; Start 02/06/19 at 08:00 Albuterol/ Ipratropium (Duoneb) 3 ml Q6H RESP THERAPY HHN Last administered on 03/04/19 14:41; Admin Dose 3 ML; Start 02/06/19 at 08:30 Doxycycline Hyclate (Vibramycin) 100 mg BID PO Last administered on 03/04/19 09:43; Admin Dose 100 MG; Start 02/12/19 at 21:00 Guaifenesin (Robitussin Liquid Cup) 200 mg Q4H PRN PO COUGH; Start 02/18/19 at 18:00 Sodium Chloride 1,000 ml @ 50 mls/hr Q20H IV Last administered on 03/04/19at 06:43; Admin Dose 50 MLS/HR; Start 02/28/19 at 10:00 Nystatin (Nystatin Powder) 1 applic BID TOP Last administered on 03/04/19at 09:42; Admin Dose 1 APPLIC; Start 03/03/19 at 15:30 Clonidine (Catapres) 0.1 mg Q6H PRN PO sbp>180 or hr>100; Start 03/04/19 at 01:00 BREEZY FRIAS MD March 04, 2019 17:49
[2019-03-04 21:19] VITALS: BP 132/60; PULSE 94; RESP 18
[2019-03-04] MEDS: SOD FERRIC GLUC COMPLX 125 MG in SOD CHLORIDE 0.9% 100 ML IVPB SCH (21:59)
[2019-03-04] MEDS: DOCUSATE SODIUM 100 MG CAP PO SCH (21:59)
[2019-03-05] MEDS: ACETYLCYSTEINE 20% 4 ML VIAL NEB SCH ×4 (01:18→20:31)
[2019-03-05] MEDS: ALBUTEROL/IPRATROPIUM (NEB) 3 ML AMP HHN SCH ×4 (01:18→20:31)
--- NOTE | 2019-03-05 07:32 | CONS ---
Assessment/Plan Assessment/Plan Hospital Course (Demo Recall) 1) lethargy this seems to wax and wane pt's caregiver that last time he was in the hospital he got more lethargic from the meds he was given I doubt infection is causing his lethargy at this time 02/18 - pt less lethargic this a.m. but has confusion / - very poor po intake if no G-tube is planned consider hospice care 03/05 - pt is eating more (with liquid drinks with a straw) 2) pyuria initial urine cx grew 50k c.glabrata and repeat shows <10k of c.alb I doubt either one is the cause of his pyuria agree to stopping of cefepime since he has neg cx for bacteria x2 I doubt he has an active UTI he may have some prostatitis and a trial of doxycycline to treat atypicals might be of benefit I will start doxycycline to treat possible prostatitis and if his pyuria does not resolve then I would recommend urology consult 02/13 - pt tolerating his doxycycline so far, continue for one month and re-check u/a, urine cx 1 week after he is done with his antibiotics 02/17 - due to elevated WBC will re-order u/a and urine cx 02/18 - pyuria persists urine cx has 5K colonies of likely enterococcus which is not significant continue doxycycline at present consider urology consult I will order urine for AFB cx 02/19 - urine cx from 02/17 only had 5k of enterococcus urine cx from 02/[address] Hancock noted pus in his urine when he urinated and believes pt retains small amout of pus in bladder due to small amout of residual urine left when he urinates pt has been placed on ampho B bladder irrigation, if repeat urine cx from yesterday remains neg can d/c the ampho B doubt pt would benefit from IV ampho B, if vijay is present the bladder irrigation should be sufficient continue with doxycycline CT shows no change in hyperdense mass to L lower kidney 02/20 - ur cx has >100k of yeast continue with ampho B irrigation (5 days as originally planned by Dr. Hancock) 02/24 - pt's 5th day of ampho B bladder irrigation was finished yesterday evening will order repeat u/a and urine cx 02/25 - repeat u/a is good, no significant pyuria/hematuria continue with doxycycline 02/26 - urine cx is negative continue with doxycycline thru 03/13 03/05 - repeat urine cx obtained early this a.m. and u/a again shows pyuria will await maturation of urine cx, on doxy still prior u/a on 02/24 was neg 3) COPD breathing is currently stable 02/17- CXR does not show raimundo pneumonia, his O2 sats have been stable will order procalcitonin, doubt he has pneumonia 02/18 - breathing is stable and pt appears comfortable procalcitonin is pending WBC is down a bit today CT chest is pending 02/19 - CT chest has smaller amount of infiltrates to lower lungs, doubt he has active pneumonia 02/20 - stable, procalcitonin is pending 02/21 - cefepime was started by Dr. Frias if procalcitonin comes back neg to d/c cefepime then 02/24 - procalcitonin was marginally elevated on cefepime, to repeat procalcitonin today 02/25 - procalcitonin now done in house, to order it for tomorrow a.m. 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 5) hx of DVT 6) CAD 7) HTN 8) hx of CVA 9) leukocytosis 02/17 - unexplained, no obvious source of infection CXR shows atelectasis/small pleural effusions and no change in O2 sats will order procalcitonin, u/a and urine cx 02/18 - urine cx only has 5k colonies of likely enterococcus which is not significant breathing is stable no diarrhea WBC a bit improved no additional antibiotics at this time CT chest/abd/pelv is pending 02/20 - RUE is swollen, will order RUE venous doppler continue with ampho B bladder irrigation and doxycycline await procalcitonin if elevated will start pneumonia treatment repeat urine cx has >100k yeast but doubt this is the source for his leukocytosis check cbc, cmp in a.m. pt has persistent hypercalcemia 02/21 - RUE venous doppler was neg and swelling is less doubt he has cellulitis and doxycycline has excellent staph coverage, to d/c vanco on cefepime for possible pneumonia, if procalcitonin on 02/18 comes back neg then will d/c cefepime pt to complete his ampho B bladder irrigation after dose on 02/22 02/23 - improved WBC today pt has RUE IV infiltrated with small pustules and redness noted I have ordered cx of these pustules, continue with cefepime/doxy at present repeat u/a and urine cx now that ampho B bladder irrigation was completed last evening repeat procalcitonin this a.m. 02/26 - improved urine cx is neg wound cx from former IV site is growing e.coli+esbl, sensitive to cefepime, continue this for another 4 days 02/27 - procalcitonin was neg, so no active bacterial infection of lung 02/28 - doubt WBC scan will be useful 03/03 - WBC scan was neg 03/05 - WBC is mildly elevated, u/a shows pyuria, urine cx is pending pt is maintained on doxycycline, prior u/a on 02/24 was neg hold off on new antibiotics till urine cx matures R forearm continues to improve 10) R forearm IV site infection 02/26 - due to e.coli+ESBL blood cx were negative though continue cefepime thru 03/01 02/27 - doubt yeast, CoNS or enterococcus are significant continue with cefepime thru 03/01 02/28 - this is improved on cefepime thru 03/01 (stop date put in ) 03/03 - stable WBC off cefepime no sign of forearm infection now I will sign off on case, thank you 03/05 - no sign of cellulitis, there is still swelling will have nurse take a culture from area of eschar and flaking skin to see if we can d/c isolation Consultation Date/Type/Reason Admit Date/Time Feb 05, 2019 at 20:14 Initial Consult Date 02/12/19 Type of Consult ID Requesting Provider: BREEZY FRIAS MD Date/Time of Note DATE: 03/05/19 TIME: 07:21 24 HR Interval Summary Free Text/Dictation pt is eating better via shakes with a straw no V, D pt at times is awake urine take and it again shows pyuria, urine cx is pending Exam/Review of Systems Exam Vitals Vital Signs Date Temp Pulse Resp B/P (MAP) Pulse Ox O2 O2 Flow FiO2 Time Delivery Rate 03/05/19 95 3.0 01:29 5/8/19 103 24 21 01:19 03/04/19 97.6 132/60 21:19 (84) 03/04/19 Nasal 21:00 Cannula Intake and Output 03/04/19 03/04/19 03/05/19 1515:00 23:00 07:00 IntakeIntake Total 240 ml 720 ml 300 ml OutputOutput Total 200 ml 250 ml 400 ml BalanceBalance 40 ml 470 ml -100 ml Constitutional: non-verbal Respiratory: clear to auscultation Cardiovascular: regular rate and rhythm Gastrointestinal: soft, non-tender Extremities: other (RUE forearm, swelling mostly in dependent area with pale redness/bruising noted, no discharge) Results Result Diagram: 03/04/19 0511 03/05/19 0445 Results 24hrs Laboratory Tests Test 03/05/19 02:05 03/05/19 04:45 Urine Color YELLOW Urine Clarity CLOUDY A Urine pH 5.0 Urine Specific [place] 1.019 Urine Ketones NEGATIVE Urine Nitrite NEGATIVE Urine Bilirubin NEGATIVE Urine Urobilinogen NEGATIVE Urine Leukocyte Esterase 2+ H Urine Microscopic RBC 68 H Urine Microscopic WBC 71 H Urine Calcium Oxalate Crystals MANY A Urine Bacteria FEW A Urine Hyaline Casts FEW A Urine Granular Casts FEW A Urine Hemoglobin 2+ H Urine Glucose NEGATIVE Urine Total Protein 2+ H Sodium Level 149 H Potassium Level 4.4 Chloride Level 121 H Carbon Dioxide Level 21 Anion Gap 7 Blood Urea Nitrogen 31 H Creatinine 1.27 H Est Glomerular Filtrat Rate mL/min Glucose Level 146 Calcium Level 10.5 H Medications Medication Current Medications Acetaminophen (Tylenol Tab) 650 mg Q4 PRN PO MILD PAIN(1-3)OR ELEVATED TEMP Last administered on 02/22/19at 20:55; Admin Dose 650 MG; Start 02/06/19 at 00:00 Acetylcysteine (Mucomyst) 2 ml Q6H RESP THERAPY NEB Last administered on 03/05/19 01:18; Admin Dose 2 ML; Start 02/06/19 at 02:00 Apixaban (Eliquis) 2.5 mg BID PO Last administered on 03/04/19 21:59; Admin Dose 2.5 MG; Start 02/06/19 at 09:00 Docusate Sodium (Colace) 100 mg QHS PO Last administered on 03/04/19 21:59; Admin Dose 100 MG; Start 02/06/19 at 21:00 Fluticasone/ Vilanterol (Breo Ellipta 200-25 Mcg Inh) 1 inh DAILY INH Last administered on 03/01/19 12:14; Admin Dose 1 INH; Start 02/06/19 at 09:00 IV Flush (NS 3 ml) 3 ml PER PROTOCOL IV Last administered on 02/06/19at 00:04; Admin Dose 3 ML; Start 02/06/19 at 00:00 Ondansetron HCl (Zofran Inj) 4 mg Q6H PRN IV NAUSEA/VOMITING; Start 02/06/19 at 00:00 Magnesium Hydroxide (Milk Of Mag) 30 ml DAILY PRN PO .CONSTIPATION; Start 02/06/19 at 00:00 Sodium Biphosphate/ Sodium Phosphate (Fleet Enema) 133 ml DAILY PRN [place] .CONSTIPATION; Start 02/06/19 at 00:00 Miscellaneous Information (Pending [facility] Order For Wound Care) This patient sawyer... PRN PRN XX WOUND CARE; Start 02/06/19 at 08:00 Albuterol/ Ipratropium (Duoneb) 3 ml Q6H RESP THERAPY HHN Last administered on 03/05/19 01:18; Admin Dose 3 ML; Start 02/06/19 at 08:30 Doxycycline Hyclate (Vibramycin) 100 mg BID PO Last administered on 03/04/19 21:59; Admin Dose 100 MG; Start 02/12/19 at 21:00 Guaifenesin (Robitussin Liquid Cup) 200 mg Q4H PRN PO COUGH; Start 02/18/19 at 18:00 Sodium Chloride 1,000 ml @ 50 mls/hr Q20H IV Last administered on 03/04/19 06:43; Admin Dose 50 MLS/HR; Start 02/28/19 at 10:00 Nystatin (Nystatin Powder) 1 applic BID TOP Last administered on 03/04/19 22:00; Admin Dose 1 APPLIC; Start 03/03/19 at 15:30 Clonidine (Catapres) 0.1 mg Q6H PRN PO sbp>180 or hr>100; Start 03/04/19 at 01:00 Ferric Sodium Gluconate Complex 125 mg/Sodium Chloride 100 ml @ 100 mls/hr DAILY@1300 IVPB Last administered on 5/7/19at 21:59; Admin Dose 100 MLS/HR; Start 03/04/19 at 20:30; Stop 03/06/19 at 13:59 MIGUELITO VASQUEZ MD March 05, 2019 07:31
[2019-03-05 08:02] VITALS: BP 98/41; PULSE 52; RESP 18
[2019-03-05] MEDS: FLUTICASONE/VILANTEROL 200-25 INH DEVICE INH SCH (09:00)
[2019-03-05] MEDS: DOXYCYCLINE 100 MG TAB PO SCH ×2 (09:35→21:14)
[2019-03-05] MEDS: BALSAM PERU/CASTOR OIL 60 GM TUBE TOP SCH ×2 (09:35→21:15)
[2019-03-05] MEDS: APIXABAN 5 MG TABLET PO SCH ×2 (09:35→21:14)
[2019-03-05] MEDS: NYSTATIN 30 GM POWDER BTL TOP SCH ×2 (09:35→21:15)
[2019-03-05] MEDS: SOD CHLORIDE 0.45% 1,000 ML IV SCH (10:44)
[2019-03-05] MEDS: SOD FERRIC GLUC COMPLX 125 MG in SOD CHLORIDE 0.9% 100 ML IVPB SCH (12:54)
[2019-03-05 13:47] VITALS: BP 124/71; PULSE 66; RESP 18
--- NOTE | 2019-03-05 17:41 | PN ---
Date/Time of Note Date/Time of Note DATE: 03/05/19 TIME: 17:38 Assessment/Plan VTE Prophylaxis Risk score (from Ns)>0 risk: 7 SCD applied (from Ns): Yes Pharmacological prophylaxis: apixaban Lines/Catheters [facility] Mid Line Central line still needed: Yes Urinary Cath still in place: No Assessment/Plan Hospital Course Patient was admitted with altered mental status and acute dehydration and leukouria. His mental status and dehydration improved with IV fluids and cefepime which were stopped when urine culture grew vijay glabata but no bacteria. Repeat cath UA still shows marked leukouria but culture grew vijay albicans. ID consult recommended treatment for prostatitis with 1 month of doxycycline. Patient was able to feed himself but needs full assist in transfer and ambulation even with PT treatment for a week. Was supposed to go to [facility] for continued therapy but patient developed leukocytosis and increased conf usion just prior to discharge. Work up showed recurrent pyuria and Urology solar energy consultant and designer recommended amphotericin bladder washings for 5 days. Patient was also found to have right elbow cellulitis with multiple organisms on cultures. He was treated with Cefepime and Doxycycline . His pyuria improved after treatment but lethargy and altered mental status persisted with the additional issue of malnutrition since patient refuses to eat when he is lethargic. Patient has fluctuating mental status with some days being awake and alert and responsive and some days he is somnolent all day. At 's request, we discontinued all psychotropic meds to see if his lethargy gets better. 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 Will obtain pelvic MRI to check for bladder abcess or prostatitis. Result Diagram: 03/04/19 0511 03/05/19 0445 Results 24hrs Laboratory Tests Test 03/05/19 02:05 03/05/19 04:45 Urine Color YELLOW Urine Clarity CLOUDY A Urine pH 5.0 Urine Specific [place] 1.019 Urine Ketones NEGATIVE Urine Nitrite NEGATIVE Urine Bilirubin NEGATIVE Urine Urobilinogen NEGATIVE Urine Leukocyte Esterase 2+ H Urine Microscopic RBC 68 H Urine Microscopic WBC 71 H Urine Calcium Oxalate Crystals MANY A Urine Bacteria FEW A Urine Hyaline Casts FEW A Urine Granular Casts FEW A Urine Hemoglobin 2+ H Urine Glucose NEGATIVE Urine Total Protein 2+ H Sodium Level 149 H Potassium Level 4.4 Chloride Level 121 H Carbon Dioxide Level 21 Anion Gap 7 Blood Urea Nitrogen 31 H Creatinine 1.27 H Est Glomerular Filtrat Rate mL/min Glucose Level 146 Calcium Level 10.5 H Subjective 24 Hr Interval Summary Free Text/Dictation Patient still lethargic Exam/Review of Systems Exam Vitals Vital Signs Date Temp Pulse Resp B/P (MAP) Pulse Ox O2 O2 Flow FiO2 Time Delivery Rate 03/05/19 70 18 98 Nasal 3.0 14:22 Cannula 03/05/19 99.8 124/71 13:47 (88) 03/05/19 21 01:19 Intake and Output 03/04/19 03/04/19 03/05/19 1414:59 22:59 06:59 IntakeIntake Total 240 ml 620 ml 1400 ml OutputOutput Total 200 ml 250 ml 400 ml BalanceBalance 40 ml 370 ml 1000 ml Psych: no complaints ENMT: nl external ears & nose Respiratory: clear to auscultation Cardiovascular: regular rate and rhythm Gastrointestinal: soft, other (bilateral ostomies) Musculoskeletal: nl extremities to inspection Extremities: normal pulses Results Results 24hrs Laboratory Tests Test 03/05/19 02:05 03/05/19 04:45 Urine Color YELLOW Urine Clarity CLOUDY A Urine pH 5.0 Urine Specific Bar[place] 1.019 Urine Ketones NEGATIVE Urine Nitrite NEGATIVE Urine Bilirubin NEGATIVE Urine Urobilinogen NEGATIVE Urine Leukocyte Esterase 2+ H Urine Microscopic RBC 68 H Urine Microscopic WBC 71 H Urine Calcium Oxalate Crystals MANY A Urine Bacteria FEW A Urine Hyaline Casts FEW A Urine Granular Casts FEW A Urine Hemoglobin 2+ H Urine Glucose NEGATIVE Urine Total Protein 2+ H Sodium Level 149 H Potassium Level 4.4 Chloride Level 121 H Carbon Dioxide Level 21 Anion Gap 7 Blood Urea Nitrogen 31 H Creatinine 1.27 H Est Glomerular Filtrat Rate mL/min Glucose Level 146 Calcium Level 10.5 H Medications Medication Current Medications Acetaminophen (Tylenol Tab) 650 mg Q4 PRN PO MILD PAIN(1-3)OR ELEVATED TEMP Last administered on 02/22/19at 20:55; Admin Dose 650 MG; Start 02/06/19 at 00:00 Acetylcysteine (Mucomyst) 2 ml Q6H RESP THERAPY NEB Last administered on 03/05/19at 14:23; Admin Dose 2 ML; Start 02/06/19 at 02:00 Apixaban (Eliquis) 2.5 mg BID PO Last administered on 03/05/19 09:35; Admin Dose 2.5 MG; Start 02/06/19 at 09:00 Docusate Sodium (Colace) 100 mg QHS PO Last administered on 03/04/19 21:59; Admin Dose 100 MG; Start 02/06/19 at 21:00 Fluticasone/ Vilanterol (Breo Ellipta 200-25 Mcg Inh) 1 inh DAILY INH Last administered on 03/01/19 12:14; Admin Dose 1 INH; Start 02/06/19 at 09:00 IV Flush (NS 3 ml) 3 ml PER PROTOCOL IV Last administered on 02/06/19 00:04; Admin Dose 3 ML; Start 02/06/19 at 00:00 Ondansetron HCl (Zofran Inj) 4 mg Q6H PRN IV NAUSEA/VOMITING; Start 02/06/19 at 00:00 Magnesium Hydroxide (Milk Of Mag) 30 ml DAILY PRN PO .CONSTIPATION; Start 02/06/19 at 00:00 Sodium Biphosphate/ Sodium Phosphate (Fleet Enema) 133 ml DAILY PRN [place] .CONSTIPATION; Start 02/06/19 at 00:00 Miscellaneous Information (Pending [facility] Order For Wound Care) This patient sawyer... PRN PRN XX WOUND CARE; Start 02/06/19 at 08:00 Albuterol/ Ipratropium (Duoneb) 3 ml Q6H RESP THERAPY HHN Last administered on 03/05/19 14:23; Admin Dose 3 ML; Start 02/06/19 at 08:30 Doxycycline Hyclate (Vibramycin) 100 mg BID PO Last administered on 03/05/19 09:35; Admin Dose 100 MG; Start 02/12/19 at 21:00 Guaifenesin (Robitussin Liquid Cup) 200 mg Q4H PRN PO COUGH; Start 02/18/19 at 18:00 Nystatin (Nystatin Powder) 1 applic BID TOP Last administered on 03/05/19 09:35; Admin Dose 1 APPLIC; Start 03/03/19 at 15:30 Clonidine (Catapres) 0.1 mg Q6H PRN PO sbp>180 or hr>100; Start 03/04/19 at 01:00 Ferric Sodium Gluconate Complex 125 mg/Sodium Chloride 100 ml @ 100 mls/hr DAILY@1300 IVPB Last administered on 03/05/19at 12:54; Admin Dose 100 MLS/HR; Start 03/04/19 at 20:30; Stop 03/06/19 at 13:59 Sodium Chloride 1,000 ml @ 50 mls/hr Q20H IV Last administered on 03/05/19at 10:44; Admin Dose 50 MLS/HR; Start 03/05/19 at 10:30 BREEZY FRIAS MD March 05, 2019 17:41
[2019-03-05 20:14] VITALS: BP 124/58; PULSE 92; RESP 18
[2019-03-05] MEDS: DOCUSATE SODIUM 100 MG CAP PO SCH (21:14)
[2019-03-05] MEDS: ACETAMINOPHEN 325 MG TAB PO PRN (21:15)
[2019-03-06 01:59] VITALS: BP 121/60; PULSE 90; RESP 20
[2019-03-06] MEDS: ACETYLCYSTEINE 20% 4 ML VIAL NEB SCH ×4 (02:52→20:31)
[2019-03-06] MEDS: ALBUTEROL/IPRATROPIUM (NEB) 3 ML AMP HHN SCH ×4 (02:52→20:16)
[2019-03-06] MEDS: SOD CHLORIDE 0.45% 1,000 ML IV SCH ×2 (06:30→09:48)
--- NOTE | 2019-03-06 07:47 | CONS ---
Assessment/Plan Assessment/Plan Hospital Course (Demo Recall) 1) lethargy this seems to wax and wane pt's caregiver that last time he was in the hospital he got more lethargic from the meds he was given I doubt infection is causing his lethargy at this time 02/18 - pt less lethargic this a.m. but has confusion 03/03 - very poor po intake if no G-tube is planned consider hospice care 03/05 - pt is eating more (with liquid drinks with a straw) 03/06 - pt a bit more awake today 2) pyuria initial urine cx grew 50k c.glabrata and repeat shows <10k of c.alb I doubt either one is the cause of his pyuria agree to stopping of cefepime since he has neg cx for bacteria x2 I doubt he has an active UTI he may have some prostatitis and a trial of doxycycline to treat atypicals might be of benefit I will start doxycycline to treat possible prostatitis and if his pyuria does not resolve then I would recommend urology consult 02/13 - pt tolerating his doxycycline so far, continue for one month and re-check u/a, urine cx 1 week after he is done with his antibiotics 02/17 - due to elevated WBC will re-order u/a and urine cx 02/18 - pyuria persists urine cx has 5K colonies of likely enterococcus which is not significant continue doxycycline at present consider urology consult I will order urine for AFB cx 02/19 - urine cx from 02/17 only had 5k of enterococcus urine cx from 02/[address] Hancock noted pus in his urine when he urinated and believes pt retains small amout of pus in bladder due to small amout of residual urine left when he urinates pt has been placed on ampho B bladder irrigation, if repeat urine cx from yesterday remains neg can d/c the ampho B doubt pt would benefit from IV ampho B, if vijay is present the bladder irrigation should be sufficient continue with doxycycline CT shows no change in hyperdense mass to L lower kidney 02/20 - ur cx has >100k of yeast continue with ampho B irrigation (5 days as originally planned by Dr. Hancock) 02/24 - pt's 5th day of ampho B bladder irrigation was finished yesterday evening will order repeat u/a and urine cx 02/25 - repeat u/a is good, no significant pyuria/hematuria continue with doxycycline 02/26 - urine cx is negative continue with doxycycline thru 03/13 03/05 - repeat urine cx obtained early this a.m. and u/a again shows pyuria will await maturation of urine cx, on doxy still prior u/a on 02/24 was neg 03/06 - urine cx has <5k of probable enterococcus (not significant) 3) COPD breathing is currently stable 02/17- CXR does not show raimundo pneumonia, his O2 sats have been stable will order procalcitonin, doubt he has pneumonia 02/18 - breathing is stable and pt appears comfortable procalcitonin is pending WBC is down a bit today CT chest is pending 02/19 - CT chest has smaller amount of infiltrates to lower lungs, doubt he has active pneumonia 02/20 - stable, procalcitonin is pending 02/21 - cefepime was started by Dr. Frias if procalcitonin comes back neg to d/c cefepime then 02/24 - procalcitonin was marginally elevated on cefepime, to repeat procalcitonin today 02/25 - procalcitonin now done in house, to order it for tomorrow a.m. to see if can d/c cefepime 02/27 - procalcitonin was neg on 02/26 03/06 - no acute change but due to leukocytosis will get CXR and check procalcitonin in a.m. 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 5) hx of DVT 6) CAD 7) HTN 8) hx of CVA 9) leukocytosis 02/17 - unexplained, no obvious source of infection CXR shows atelectasis/small pleural effusions and no change in O2 sats will order procalcitonin, u/a and urine cx 02/18 - urine cx only has 5k colonies of likely enterococcus which is not significant breathing is stable no diarrhea WBC a bit improved no additional antibiotics at this time CT chest/abd/pelv is pending 02/20 - RUE is swollen, will order RUE venous doppler continue with ampho B bladder irrigation and doxycycline await procalcitonin if elevated will start pneumonia treatment repeat urine cx has >100k yeast but doubt this is the source for his leukocytosis check cbc, cmp in a.m. pt has persistent hypercalcemia 02/21 - RUE venous doppler was neg and swelling is less doubt he has cellulitis and doxycycline has excellent staph coverage, to d/c vanco on cefepime for possible pneumonia, if procalcitonin on 02/18 comes back neg then will d/c cefepime pt to complete his ampho B bladder irrigation after dose on 02/22 02/23 - improved WBC today pt has RUE IV infiltrated with small pustules and redness noted I have ordered cx of these pustules, continue with cefepime/doxy at present repeat u/a and urine cx now that ampho B bladder irrigation was completed last evening repeat procalcitonin this a.m. 02/26 - improved urine cx is neg wound cx from former IV site is growing e.coli+esbl, sensitive to cefepime, continue this for another 4 days 02/27 - procalcitonin was neg, so no active bacterial infection of lung 02/28 - doubt WBC scan will be useful 03/03 - WBC scan was neg 03/05 - WBC is mildly elevated, u/a shows pyuria, urine cx is pending pt is maintained on doxycycline, prior u/a on 02/24 was neg hold off on new antibiotics till urine cx matures R forearm continues to improve 03/06 - doubling of WBC and mild fever pelvic MRI is pending urine cx has <5k of probable enterococcus which is not significant will send stool from ileostomy for c.dif get blood cx x2 with one set via the picc line get CXR and check procalcitonin in a.m. R forearm looks good clinically pt is stable and would not start antibiotics till more info is available 10) R forearm IV site infection 02/26 - due to e.coli+ESBL blood cx were negative though continue cefepime thru 03/01 02/27 - doubt yeast, CoNS or enterococcus are significant continue with cefepime thru 03/01 02/28 - this is improved on cefepime thru 03/01 (stop date put in ) 03/03 - stable WBC off cefepime no sign of forearm infection now I will sign off on case, thank you 03/05 - no sign of cellulitis, there is still swelling will have nurse take a culture from area of eschar and flaking skin to see if we can d/c isolation 03/06 - arm looks good, no sign of infection Consultation Date/Type/Reason Admit Date/Time Feb 05, 2019 at 20:14 Initial Consult Date 02/12/19 Type of Consult ID Requesting Provider: BREEZY FRIAS MD Date/Time of Note DATE: 03/06/19 TIME: 07:39 24 HR Interval Summary Free Text/Dictation pt a bit more awake, opens eyes and says hi dark liquid stool in ileostomy pt is taking only in boost by straw, does not take mechanical soft diet no V O2 sats are stable Exam/Review of Systems Exam Vitals Vital Signs Date Temp Pulse Resp B/P (MAP) Pulse Ox O2 O2 Flow FiO2 Time Delivery Rate 03/06/19 89 20 96 Nasal 3.0 02:52 Cannula 03/06/19 98.8 121/60 01:59 (80) 03/05/19 21 01:19 Intake and Output 03/05/19 03/05/19 03/06/19 1515:00 23:00 07:00 IntakeIntake Total 220 ml 540 ml 550 ml OutputOutput Total 200 ml 250 ml BalanceBalance 20 ml 290 ml 550 ml Constitutional: alert Eyes: nl sclera Respiratory: clear to auscultation Cardiovascular: regular rate and rhythm Gastrointestinal: soft, non-tender Extremities: other (picc line site to LUE looks ok, no redness, swelling) Results Result Diagram: 03/06/19 0511 03/05/19 0445 Results 24hrs Laboratory Tests Test 03/06/19 05:11 White Blood Count 29.6 #H Red Blood Count 2.90 L Hemoglobin 8.0 L Hematocrit 25.9 L Mean Corpuscular Volume 89.3 Mean Corpuscular Hemoglobin 27.6 L Mean Corpuscular Hemoglobin Concent 30.9 L Red Cell Distribution Width 17.3 H Platelet Count 167 Mean Platelet Volume 12.3 H Immature Granulocytes % 1.100 H Neutrophils % Lymphocytes % Monocytes % Eosinophils % Basophils % Nucleated Red Blood Cells % 0.0 Immature Granulocytes # 0.320 H Neutrophils # Lymphocytes # Monocytes # Eosinophils # Basophils # Nucleated Red Blood Cells # Medications Medication Current Medications Acetaminophen (Tylenol Tab) 650 mg Q4 PRN PO MILD PAIN(1-3)OR ELEVATED TEMP Last administered on 03/05/19at 21:15; Admin Dose 650 MG; Start 02/06/19 at 00:00 Acetylcysteine (Mucomyst) 2 ml Q6H RESP THERAPY NEB Last administered on 03/06/19 02:52; Admin Dose 2 ML; Start 02/06/19 at 02:00 Apixaban (Eliquis) 2.5 mg BID PO Last administered on 03/05/19 21:14; Admin Dose 2.5 MG; Start 02/06/19 at 09:00 Docusate Sodium (Colace) 100 mg QHS PO Last administered on 03/05/19 21:14; Admin Dose 100 MG; Start 02/06/19 at 21:00 Fluticasone/ Vilanterol (Breo Ellipta 200-25 Mcg Inh) 1 inh DAILY INH Last administered on 03/01/19 12:14; Admin Dose 1 INH; Start 02/06/19 at 09:00 IV Flush (NS 3 ml) 3 ml PER PROTOCOL IV Last administered on 02/06/19 00:04; Admin Dose 3 ML; Start 02/06/19 at 00:00 Ondansetron HCl (Zofran Inj) 4 mg Q6H PRN IV NAUSEA/VOMITING; Start 02/06/19 at 00:00 Magnesium Hydroxide (Milk Of Mag) 30 ml DAILY PRN PO .CONSTIPATION; Start 02/06/19 at 00:00 Sodium Biphosphate/ Sodium Phosphate (Fleet Enema) 133 ml DAILY PRN [place] .CONSTIPATION; Start 02/06/19 at 00:00 Miscellaneous Information (Pending [facility] Order For Wound Care) This patient sawyer... PRN PRN XX WOUND CARE; Start 02/06/19 at 08:00 Albuterol/ Ipratropium (Duoneb) 3 ml Q6H RESP THERAPY HHN Last administered on 03/06/19 02:52; Admin Dose 3 ML; Start 02/06/19 at 08:30 Doxycycline Hyclate (Vibramycin) 100 mg BID PO Last administered on 03/05/19 21:14; Admin Dose 100 MG; Start 02/12/19 at 21:00 Guaifenesin (Robitussin Liquid Cup) 200 mg Q4H PRN PO COUGH; Start 02/18/19 at 18:00 Nystatin (Nystatin Powder) 1 applic BID TOP Last administered on 03/05/19 21:15; Admin Dose 1 APPLIC; Start 03/03/19 at 15:30 Clonidine (Catapres) 0.1 mg Q6H PRN PO sbp>180 or hr>100; Start 03/04/19 at 01:00 Ferric Sodium Gluconate Complex 125 mg/Sodium Chloride 100 ml @ 100 mls/hr DAILY@1300 IVPB Last administered on 03/05/19at 12:54; Admin Dose 100 MLS/HR; Start 03/04/19 at 20:30; Stop 03/06/19 at 13:59 Sodium Chloride 1,000 ml @ 50 mls/hr Q20H IV Last administered on 03/05/19at 10:44; Admin Dose 50 MLS/HR; Start 03/05/19 at 10:30 MIGUELITO VASQUEZ MD March 06, 2019 07:47
[2019-03-06 08:04] VITALS: BP 120/63; PULSE 96; RESP 18
[2019-03-06] MEDS: DOXYCYCLINE 100 MG TAB PO SCH ×2 (08:15→20:34)
[2019-03-06] MEDS: NYSTATIN 30 GM POWDER BTL TOP SCH ×2 (08:16→20:34)
[2019-03-06] MEDS: APIXABAN 5 MG TABLET PO SCH ×2 (08:16→20:34)
[2019-03-06] MEDS: BALSAM PERU/CASTOR OIL 60 GM TUBE TOP SCH ×2 (08:16→20:35)
[2019-03-06] MEDS: FLUTICASONE/VILANTEROL 200-25 INH DEVICE INH SCH (08:16)
[2019-03-06] MEDS: SOD FERRIC GLUC COMPLX 125 MG in SOD CHLORIDE 0.9% 100 ML IVPB SCH (13:26)
[2019-03-06 14:55] VITALS: BP 133/77; PULSE 93; RESP 17
--- NOTE | 2019-03-06 18:00 | PN ---
Date/Time of Note Date/Time of Note DATE: 03/06/19 TIME: 17:57 Assessment/Plan VTE Prophylaxis Risk score (from Ns)>0 risk: 7 SCD applied (from Ns): Yes Pharmacological prophylaxis: apixaban Lines/Catheters IV Catheter Type (from [facility]): Mid Line Central line still needed: Yes Urinary Cath still in place: No Assessment/Plan Hospital Course Patient was admitted with altered mental status and acute dehydration and leukouria. His mental status and dehydration improved with IV fluids and cefepime which were stopped when urine culture grew vijay glabata but no bacteria. Repeat cath UA still shows marked leukouria but culture grew vijay albicans. ID consult recommended treatment for prostatitis with 1 month of doxycycline. Patient was able to feed himself but needs full assist in transfer and ambulation even with PT treatment for a week. Was supposed to go to [facility] for continued therapy but patient developed leukocytosis and increased conf usion just prior to discharge. Work up showed recurrent pyuria and Urology disaster recovery consultant recommended amphotericin bladder washings for 5 days. Patient was also found to have right elbow cellulitis with multiple organisms on cultures. He was treated with Cefepime and Doxycycline . His pyuria improved after treatment but lethargy and altered mental status persisted with the additional issue of malnutrition since patient refuses to eat when he is lethargic. Patient has fluctuating mental status with some days being awake and alert and responsive and some days he is somnolent all day. At 's request, we discontinued all psychotropic meds to see if his lethargy gets better. 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 Pelvic MRI done last night did not show bladder abcess but chronic bladder wall thickening. Problems: (1) Fever Status: Acute Comment: possible acute aspiration pneumonitis due to lying down flat for MRI . Patient on oral doxycycline, further work up and antibiotics per ID. (2) Pneumonia Status: Acute Qualifiers: Pneumonia type: aspiration pneumonia (3) Leukocytosis Status: Acute Comment: worsened from baseline and associated with fever, most likely due to aspiration pneumonitis. Continue doxycycline and consider adding more antibiotics coverage for aspiration pneumonia. (4) CHF (congestive heart failure) Status: Chronic Result Diagram: 03/06/19 0511 03/05/19 0445 Results 24hrs Laboratory Tests Test 03/06/19 05:11 03/06/19 08:00 White Blood Count 29.6 #H Red Blood Count 2.90 L Hemoglobin 8.0 L Hematocrit 25.9 L Mean Corpuscular Volume 89.3 Mean Corpuscular Hemoglobin 27.6 L Mean Corpuscular Hemoglobin Concent 30.9 L Red Cell Distribution Width 17.3 H Platelet Count 167 Mean Platelet Volume 12.3 H Immature Granulocytes % 1.100 H Neutrophils % Segmented Neutrophils % (Manual) 93 H Band Neutrophils % (Manual) 3 Lymphocytes % Lymphocytes % (Manual) 3 L Monocytes % Monocytes % (Manual) 1 Eosinophils % Basophils % Nucleated Red Blood Cells % 0.0 Immature Granulocytes # 0.320 H Neutrophils # Neutrophils # (Manual) 27.8 H Band Neutrophils # 0.8 H Lymphocytes (Manual) 0.8 Lymphocytes # Monocytes # Monocytes # (Manual) 0.2 L Eosinophils # Basophils # Nucleated Red Blood Cells # Pathologist Review (Hematology) Y Platelet Estimate NORMAL Polychromasia 3+ Poikilocytosis 2+ Anisocytosis 1+ Microcytosis 1+ Ovalocytes 1+ Stool Occult Blood NEGATIVE Subjective 24 Hr Interval Summary Free Text/Dictation Patient had fever to 100.1 last night after coming back from MRI but has is more alert this morning and has no comlaints. Exam/Review of Systems Exam Vitals Vital Signs Date Temp Pulse Resp B/P (MAP) Pulse Ox O2 O2 Flow FiO2 Time Delivery Rate 03/06/19 3.0 17:26 03/06/19 97.4 93 17 133/77 96 14:55 (95) 03/06/19 21 14:29 03/06/19 Nasal 09:00 Cannula Intake and Output 03/05/19 03/05/19 03/06/19 1515:00 23:00 07:00 IntakeIntake Total 220 ml 540 ml 550 ml OutputOutput Total 200 ml 250 ml BalanceBalance 20 ml 290 ml 550 ml Exam Patient awake and alert, drinking Boost given by . Psych: no complaints Head: normocephalic, atraumatic ENMT: nl external ears & nose Respiratory: clear to auscultation, crackles/rales Gastrointestinal: soft, other (ostomies) Musculoskeletal: nl extremities to inspection, other (Right elbow erythema much reduced.) Results Results 24hrs Laboratory Tests Test 03/06/19 05:11 03/06/19 08:00 White Blood Count 29.6 #H Red Blood Count 2.90 L Hemoglobin 8.0 L Hematocrit 25.9 L Mean Corpuscular Volume 89.3 Mean Corpuscular Hemoglobin 27.6 L Mean Corpuscular Hemoglobin Concent 30.9 L Red Cell Distribution Width 17.3 H Platelet Count 167 Mean Platelet Volume 12.3 H Immature Granulocytes % 1.100 H Neutrophils % Segmented Neutrophils % (Manual) 93 H Band Neutrophils % (Manual) 3 Lymphocytes % Lymphocytes % (Manual) 3 L Monocytes % Monocytes % (Manual) 1 Eosinophils % Basophils % Nucleated Red Blood Cells % 0.0 Immature Granulocytes # 0.320 H Neutrophils # Neutrophils # (Manual) 27.8 H Band Neutrophils # 0.8 H Lymphocytes (Manual) 0.8 Lymphocytes # Monocytes # Monocytes # (Manual) 0.2 L Eosinophils # Basophils # Nucleated Red Blood Cells # Pathologist Review (Hematology) Y Platelet Estimate NORMAL Polychromasia 3+ Poikilocytosis 2+ Anisocytosis 1+ Microcytosis 1+ Ovalocytes 1+ Stool Occult Blood NEGATIVE Medications Medication Current Medications Acetaminophen (Tylenol Tab) 650 mg Q4 PRN PO MILD PAIN(1-3)OR ELEVATED TEMP Last administered on 03/05/19 21:15; Admin Dose 650 MG; Start 02/06/19 at 00:00 Acetylcysteine (Mucomyst) 2 ml Q6H RESP THERAPY NEB Last administered on 03/06/19 14:41; Admin Dose 2 ML; Start 02/06/19 at 02:00 Apixaban (Eliquis) 2.5 mg BID PO Last administered on 03/06/19 08:16; Admin Dose 2.5 MG; Start 02/06/19 at 09:00 Docusate Sodium (Colace) 100 mg QHS PO Last administered on 03/05/19 21:14; Admin Dose 100 MG; Start 02/06/19 at 21:00 Fluticasone/ Vilanterol (Breo Ellipta 200-25 Mcg Inh) 1 inh DAILY INH Last administered on 03/01/19 12:14; Admin Dose 1 INH; Start 02/06/19 at 09:00 IV Flush (NS 3 ml) 3 ml PER PROTOCOL IV Last administered on 02/06/19at 00:04; Admin Dose 3 ML; Start 02/06/19 at 00:00 Ondansetron HCl (Zofran Inj) 4 mg Q6H PRN IV NAUSEA/VOMITING; Start 02/06/19 at 00:00 Magnesium Hydroxide (Milk Of Mag) 30 ml DAILY PRN PO .CONSTIPATION; Start 02/06/19 at 00:00 Sodium Biphosphate/ Sodium Phosphate (Fleet Enema) 133 ml DAILY PRN OR .CONSTIPATION; Start 02/06/19 at 00:00 Miscellaneous Information (Pending [facility] Order For Wound Care) This patient sawyer... PRN PRN XX WOUND CARE; Start 02/06/19 at 08:00 Albuterol/ Ipratropium (Duoneb) 3 ml Q6H RESP THERAPY HHN Last administered on 03/06/19 14:29; Admin Dose 3 ML; Start 02/06/19 at 08:30 Doxycycline Hyclate (Vibramycin) 100 mg BID PO Last administered on 03/06/19 08:15; Admin Dose 100 MG; Start 02/12/19 at 21:00 Guaifenesin (Robitussin Liquid Cup) 200 mg Q4H PRN PO COUGH; Start 02/18/19 at 18:00 Nystatin (Nystatin Powder) 1 applic BID TOP Last administered on 03/06/19 08:16; Admin Dose 1 APPLIC; Start 03/03/19 at 15:30 Clonidine (Catapres) 0.1 mg Q6H PRN PO sbp>180 or hr>100; Start 03/04/19 at 01:00 Sodium Chloride 1,000 ml @ 50 mls/hr Q20H IV Last administered on 03/06/19 09:48; Admin Dose 50 MLS/HR; Start 03/05/19 at 10:30 BREEZY FRIAS MD March 06, 2019 18:00
[2019-03-06 20:00] VITALS: BP 142/66; PULSE 87; RESP 20
[2019-03-06] MEDS: DOCUSATE SODIUM 100 MG CAP PO SCH (20:34)
[2019-03-07] VITALS (7 sets, daily range): BP systolic 98–144; BP diastolic 56–75; PULSE 75–114; RESP 12–20
[2019-03-07] MEDS: ALBUTEROL/IPRATROPIUM (NEB) 3 ML AMP HHN SCH ×4 (02:07→19:29)
[2019-03-07] MEDS: ACETYLCYSTEINE 20% 4 ML VIAL NEB SCH ×4 (02:07→19:29)
[2019-03-07] MEDS: SOD CHLORIDE 0.45% 1,000 ML IV SCH (03:16)
--- NOTE | 2019-03-07 07:05 | CONS ---
Assessment/Plan Assessment/Plan Hospital Course (Demo Recall) 1) lethargy this seems to wax and wane pt's caregiver that last time he was in the hospital he got more lethargic from the meds he was given I doubt infection is causing his lethargy at this time 02/18 - pt less lethargic this a.m. but has confusion 03/03 - very poor po intake if no G-tube is planned consider hospice care 03/05 - pt is eating more (with liquid drinks with a straw) 03/06 - pt a bit more awake today 03/07 - slight further improvement 2) pyuria initial urine cx grew 50k c.glabrata and repeat shows <10k of c.alb I doubt either one is the cause of his pyuria agree to stopping of cefepime since he has neg cx for bacteria x2 I doubt he has an active UTI he may have some prostatitis and a trial of doxycycline to treat atypicals might be of benefit I will start doxycycline to treat possible prostatitis and if his pyuria does not resolve then I would recommend urology consult 02/13 - pt tolerating his doxycycline so far, continue for one month and re-check u/a, urine cx 1 week after he is done with his antibiotics 02/17 - due to elevated WBC will re-order u/a and urine cx 02/18 - pyuria persists urine cx has 5K colonies of likely enterococcus which is not significant continue doxycycline at present consider urology consult I will order urine for AFB cx 02/19 - urine cx from 02/17 only had 5k of enterococcus urine cx from 02/[address] Hancock noted pus in his urine when he urinated and believes pt retains small amout of pus in bladder due to small amout of residual urine left when he urinates pt has been placed on ampho B bladder irrigation, if repeat urine cx from yesterday remains neg can d/c the ampho B doubt pt would benefit from IV ampho B, if vijay is present the bladder irrigation should be sufficient continue with doxycycline CT shows no change in hyperdense mass to L lower kidney 02/20 - ur cx has >100k of yeast continue with ampho B irrigation (5 days as originally planned by Dr. Hancock) 02/24 - pt's 5th day of ampho B bladder irrigation was finished yesterday evening will order repeat u/a and urine cx 02/25 - repeat u/a is good, no significant pyuria/hematuria continue with doxycycline 02/26 - urine cx is negative continue with doxycycline thru 03/13 03/05 - repeat urine cx obtained early this a.m. and u/a again shows pyuria will await maturation of urine cx, on doxy still prior u/a on 02/24 was neg 03/06 - urine cx has <5k of probable enterococcus (not significant) 03/07 - pelvic MRI shows thickened bladder wall with trabeculations pt likely retains urine WBC is much improved repeat urine cx again and start zosyn (to cover lung too) 3) COPD breathing is currently stable 02/17- CXR does not show raimundo pneumonia, his O2 sats have been stable will order procalcitonin, doubt he has pneumonia 02/18 - breathing is stable and pt appears comfortable procalcitonin is pending WBC is down a bit today CT chest is pending 02/19 - CT chest has smaller amount of infiltrates to lower lungs, doubt he has active pneumonia 02/20 - stable, procalcitonin is pending 02/21 - cefepime was started by Dr. Frias if procalcitonin comes back neg to d/c cefepime then 02/24 - procalcitonin was marginally elevated on cefepime, to repeat procalcitonin today 02/25 - procalcitonin now done in house, to order it for tomorrow a.m. to see if can d/c cefepime 02/27 - procalcitonin was neg on 02/26 03/06 - no acute change but due to leukocytosis will get CXR and check procalcitonin in a.m. 03/07 - CXR is a bit worse WBC is improved, suspect some aspiration is going on start zosyn, await procalcitonin this a.m. and get one tomorrow a.m. and if neg will give antibiotic base on repeat urine cx and u/a 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 5) hx of DVT 6) CAD 7) HTN 8) hx of CVA 9) leukocytosis 02/17 - unexplained, no obvious source of infection CXR shows atelectasis/small pleural effusions and no change in O2 sats will order procalcitonin, u/a and urine cx 02/18 - urine cx only has 5k colonies of likely enterococcus which is not significant breathing is stable no diarrhea WBC a bit improved no additional antibiotics at this time CT chest/abd/pelv is pending 02/20 - RUE is swollen, will order RUE venous doppler continue with ampho B bladder irrigation and doxycycline await procalcitonin if elevated will start pneumonia treatment repeat urine cx has >100k yeast but doubt this is the source for his leukocytosis check cbc, cmp in a.m. pt has persistent hypercalcemia 02/21 - RUE venous doppler was neg and swelling is less doubt he has cellulitis and doxycycline has excellent staph coverage, to d/c vanco on cefepime for possible pneumonia, if procalcitonin on 02/18 comes back neg then will d/c cefepime pt to complete his ampho B bladder irrigation after dose on 02/22 02/23 - improved WBC today pt has RUE IV infiltrated with small pustules and redness noted I have ordered cx of these pustules, continue with cefepime/doxy at present repeat u/a and urine cx now that ampho B bladder irrigation was completed last evening repeat procalcitonin this a.m. 02/26 - improved urine cx is neg wound cx from former IV site is growing e.coli+esbl, sensitive to cefepime, continue this for another 4 days 02/27 - procalcitonin was neg, so no active bacterial infection of lung 02/28 - doubt WBC scan will be useful 03/03 - WBC scan was neg 03/05 - WBC is mildly elevated, u/a shows pyuria, urine cx is pending pt is maintained on doxycycline, prior u/a on 02/24 was neg hold off on new antibiotics till urine cx matures R forearm continues to improve 03/06 - doubling of WBC and mild fever pelvic MRI is pending urine cx has <5k of probable enterococcus which is not significant will send stool from ileostomy for c.dif get blood cx x2 with one set via the picc line get CXR and check procalcitonin in a.m. R forearm looks good clinically pt is stable and would not start antibiotics till more info is available 03/07 - WBC is back down suspect some aspiration is going on, await procalcitonin from today and tomorrow urine is also suspect for persistent leukocytosis start zosyn until procalcitonin and repeat u/a and urine cx are back 10) R forearm IV site infection 02/26 - due to e.coli+ESBL blood cx were negative though continue cefepime thru 03/01 02/27 - doubt yeast, CoNS or enterococcus are significant continue with cefepime thru 03/01 02/28 - this is improved on cefepime thru 03/01 (stop date put in ) 03/03 - stable WBC off cefepime no sign of forearm infection now I will sign off on case, thank you 03/05 - no sign of cellulitis, there is still swelling will have nurse take a culture from area of eschar and flaking skin to see if we can d/c isolation 03/06 - arm looks good, no sign of infection 03/07 - arm cx has no e.coli ok to d/c isolation if repeat urine cx does not have e.coli+ESBL in it Consultation Date/Type/Reason Admit Date/Time Feb 05, 2019 at 20:14 Initial Consult Date 02/12/19 Type of Consult ID Requesting Provider: BREEZY FRIAS MD Date/Time of Note DATE: 03/07/19 TIME: 06:56 24 HR Interval Summary Free Text/Dictation pt was able to say hello to me for the first time in a while pt pulled out ileostomy still with poor appetite Exam/Review of Systems Exam Vitals Vital Signs Date Temp Pulse Resp B/P (MAP) Pulse Ox O2 O2 Flow FiO2 Time Delivery Rate 03/07/19 97 21 02:07 03/07/19 86 18 02:07 03/07/19 99.5 110/56 01:56 (74) 03/06/19 Nasal 3.0 20:16 Cannula Intake and Output 03/06/19 03/06/19 03/07/19 1414:59 22:59 06:59 IntakeIntake Total 100 ml 470 ml 750 ml OutputOutput Total 750 ml BalanceBalance 100 ml 470 ml 0 ml Constitutional: alert Eyes: nl sclera Respiratory: clear to auscultation Cardiovascular: regular rate and rhythm Gastrointestinal: soft, non-tender Results Result Diagram: 03/07/19 0439 03/07/19 0439 Results 24hrs Laboratory Tests Test 03/06/19 08:00 03/07/19 04:39 Stool Occult Blood NEGATIVE White Blood Count 17.8 #H Red Blood Count 2.86 L Hemoglobin 8.0 L Hematocrit 25.4 L Mean Corpuscular Volume 88.8 Mean Corpuscular Hemoglobin 28.0 L Mean Corpuscular Hemoglobin Concent 31.5 L Red Cell Distribution Width 17.5 H Platelet Count 184 Mean Platelet Volume 11.8 H Immature Granulocytes % 0.500 H Neutrophils % 81.0 H Lymphocytes % 8.1 L Monocytes % 8.3 Eosinophils % 1.8 Basophils % 0.3 Nucleated Red Blood Cells % 0.1 H Immature Granulocytes # 0.090 H Neutrophils # 14.4 H Lymphocytes # 1.5 Monocytes # 1.5 H Eosinophils # 0.3 Basophils # 0.1 Nucleated Red Blood Cells # 0.0 Sodium Level 152 H Potassium Level 4.1 Chloride Level 123 H Carbon Dioxide Level 21 Anion Gap 8 Blood Urea Nitrogen 44 #H Creatinine 1.44 H Est Glomerular Filtrat Rate mL/min Glucose Level 94 # Calcium Level 11.3 H Total Bilirubin 0.0 L Direct Bilirubin 0.00 Indirect Bilirubin 0.0 Aspartate Amino Transf (AST/SGOT) 17 Alanine Aminotransferase (ALT/SGPT) < 6 L Alkaline Phosphatase 117 Total Protein 6.7 Albumin 3.1 L Globulin 3.60 H Albumin/Globulin Ratio 0.86 Medications Medication Current Medications Acetaminophen (Tylenol Tab) 650 mg Q4 PRN PO MILD PAIN(1-3)OR ELEVATED TEMP Last administered on 03/05/19 21:15; Admin Dose 650 MG; Start 02/06/19 at 00:00 Acetylcysteine (Mucomyst) 2 ml Q6H RESP THERAPY NEB Last administered on 03/07/19 02:07; Admin Dose 2 ML; Start 02/06/19 at 02:00 Apixaban (Eliquis) 2.5 mg BID PO Last administered on 03/06/19 20:34; Admin Dose 2.5 MG; Start 02/06/19 at 09:00 Docusate Sodium (Colace) 100 mg QHS PO Last administered on 03/06/19 20:34; Admin Dose 100 MG; Start 02/06/19 at 21:00 Fluticasone/ Vilanterol (Breo Ellipta 200-25 Mcg Inh) 1 inh DAILY INH Last administered on 03/01/19 12:14; Admin Dose 1 INH; Start 02/06/19 at 09:00 IV Flush (NS 3 ml) 3 ml PER PROTOCOL IV Last administered on 02/06/19at 00:04; Admin Dose 3 ML; Start 02/06/19 at 00:00 Ondansetron HCl (Zofran Inj) 4 mg Q6H PRN IV NAUSEA/VOMITING; Start 02/06/19 at 00:00 Magnesium Hydroxide (Milk Of Mag) 30 ml DAILY PRN PO .CONSTIPATION; Start 02/06/19 at 00:00 Sodium Biphosphate/ Sodium Phosphate (Fleet Enema) 133 ml DAILY PRN [place] .CONSTIPATION; Start 02/06/19 at 00:00 Miscellaneous Information (Pending Santyl Order For Wound Care) This patient sawyer... PRN PRN XX WOUND CARE; Start 02/06/19 at 08:00 Albuterol/ Ipratropium (Duoneb) 3 ml Q6H RESP THERAPY HHN Last administered on 03/07/19at 02:07; Admin Dose 3 ML; Start 02/06/19 at 08:30 Doxycycline Hyclate (Vibramycin) 100 mg BID PO Last administered on 03/06/19at 20:34; Admin Dose 100 MG; Start 02/12/19 at 21:00 Guaifenesin (Robitussin Liquid Cup) 200 mg Q4H PRN PO COUGH; Start 02/18/19 at 18:00 Nystatin (Nystatin Powder) 1 applic BID TOP Last administered on 03/06/19at 20:34; Admin Dose 1 APPLIC; Start 03/03/19 at 15:30 Clonidine (Catapres) 0.1 mg Q6H PRN PO sbp>180 or hr>100; Start 03/04/19 at 01:00 Sodium Chloride 1,000 ml @ 50 mls/hr Q20H IV Last administered on 03/07/19at 03:16; Admin Dose 50 MLS/HR; Start 03/05/19 at 10:30 MIGUELITO VASQUEZ MD March 07, 2019 07:05
[2019-03-07] MEDS: APIXABAN 5 MG TABLET PO SCH ×2 (09:39→20:54)
[2019-03-07] MEDS: DOXYCYCLINE 100 MG TAB PO SCH ×2 (09:39→20:54)
[2019-03-07] MEDS: FLUTICASONE/VILANTEROL 200-25 INH DEVICE INH SCH (09:39)
[2019-03-07] MEDS: BALSAM PERU/CASTOR OIL 60 GM TUBE TOP SCH ×2 (09:40→20:56)
[2019-03-07] MEDS: NYSTATIN 30 GM POWDER BTL TOP SCH ×2 (09:40→21:34)
[2019-03-07] MEDS: PIPER-TAZO 2.25 GM (PMX) 50 ML IVPB SCH ×2 (12:57→18:25)
--- NOTE | 2019-03-07 13:10 | PN ---
Date/Time of Note Date/Time of Note DATE: 03/07/19 TIME: 12:55 Assessment/Plan VTE Prophylaxis Risk score (from Ns)>0 risk: 4 SCD applied (from Ns): Yes Pharmacological prophylaxis: apixaban Lines/Catheters IV [facility]from [facility] Mid Line Central line still needed: Yes Urinary Cath still in place: No Assessment/Plan Hospital Course Patient was admitted with altered mental status and acute dehydration and leukouria. His mental status and dehydration improved with IV fluids and cefepime which were stopped when urine culture grew vijay glabata but no bacteria. Repeat cath UA still shows marked leukouria but culture grew vijay albicans. ID consult recommended treatment for prostatitis with 1 month of doxycycline. Patient was able to feed himself but needs full assist in transfer and ambulation even with PT treatment for a week. Was supposed to go to [facility] for continued therapy but patient developed leukocytosis and increased co nfusion just prior to discharge. Work up showed recurrent pyuria with vijay growth and Urology outreach consultant recommended amphotericin bladder washings for 5 days. Patient was also found to have right elbow cellulitis with multiple organisms on cultures. He was treated with Cefepime and Doxycycline . His pyuria improved after treatment but lethargy and altered mental status persisted with the additional issue of malnutrition and dehydration since patient refuses to eat when he is lethargic. Patient has fluctuating mental status with some days being awake and alert and responsive and some days he is somnolent all day.] At 's request, we discontinued all psychotropic meds to see if his lethargy gets better. 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 A pelvic MRI done did not show evidence for bladder abcess. Patient developed fever and leukocytosis on the 11/06/2018 and work up is suspicious for aspiration pneumonitis. Problems: (1) Leukocytosis Status: Acute Comment: maybe due to aspiration pneumonitis from lying down flat for pelvic MRI the evening before last . Appears to be improving gradually on no new antibiotics but doxycycline. (2) Dehydration Status: Acute Comment: Due to poor po intake when he was lethargic earlier this week . Patient more alert now but will rehydrate gently with D5 W. (3) Lethargy Status: Acute Comment: Improved yesterday and today off of all psychotropic meds. Continue to monitor since patient has history of fluctuating mental status. (4) Malnutrition Status: Acute Comment: Patient eating better now. Continue Boost supplement in between meals. Ok for family to bring in outside food that patient likes. (5) Anemia Status: Chronic Comment: Gradual onset of anemia due to daily blood draw and poor nutritional and functional status. Will transfuse 2 units PRBC since anemia may be contributing to his weakness and fatigue. Result Diagram: 03/07/199 03/07/19438 Results 24hrs Laboratory Tests Test 03/07/19 04:39 White Blood Count 17.8 #H Red Blood Count 2.86 L Hemoglobin 8.0 L Hematocrit 25.4 L Mean Corpuscular Volume 88.8 Mean Corpuscular Hemoglobin 28.0 L Mean Corpuscular Hemoglobin Concent 31.5 L Red Cell Distribution Width 17.5 H Platelet Count 184 Mean Platelet Volume 11.8 H Immature Granulocytes % 0.500 H Neutrophils % 81.0 H Lymphocytes % 8.1 L Monocytes % 8.3 Eosinophils % 1.8 Basophils % 0.3 Nucleated Red Blood Cells % 0.1 H Immature Granulocytes # 0.090 H Neutrophils # 14.4 H Lymphocytes # 1.5 Monocytes # 1.5 H Eosinophils # 0.3 Basophils # 0.1 Nucleated Red Blood Cells # 0.0 Sodium Level 152 H Potassium Level 4.1 Chloride Level 123 H Carbon Dioxide Level 21 Anion Gap 8 Blood Urea Nitrogen 44 #H Creatinine 1.44 H Est Glomerular Filtrat Rate mL/min Glucose Level 94 # Calcium Level 11.3 H Total Bilirubin 0.0 L Direct Bilirubin 0.00 Indirect Bilirubin 0.0 Aspartate Amino Transf (AST/SGOT) 17 Alanine Aminotransferase (ALT/SGPT) < 6 L Alkaline Phosphatase 117 Total Protein 6.7 Albumin 3.1 L Globulin 3.60 H Albumin/Globulin Ratio 0.86 Procalcitonin 1.00 H Subjective 24 Hr Interval Summary Free Text/Dictation Patient awake and alert, has no complaints this morning. Exam/Review of Systems Exam Vitals Vital Signs Date Temp Pulse Resp B/P (MAP) Pulse Ox O2 O2 Flow FiO2 Time Delivery Rate 03/07/19 95 18 95 21 08:41 03/07/19 99.5 110/56 01:56 (74) 5/9/19 Nasal 3.0 20:16 Cannula Intake and Output 03/06/19 03/06/19 03/07/19 1414:59 22:59 06:59 IntakeIntake Total 100 ml 470 ml 750 ml OutputOutput Total 750 ml BalanceBalance 100 ml 470 ml 0 ml Constitutional: alert Head: normocephalic, atraumatic Respiratory: clear to auscultation, normal air movement Cardiovascular: regular rate and rhythm Gastrointestinal: soft, other Musculoskeletal: nl extremities to inspection Results Results 24hrs Laboratory Tests Test 03/07/19 04:39 White Blood Count 17.8 #H Red Blood Count 2.86 L Hemoglobin 8.0 L Hematocrit 25.4 L Mean Corpuscular Volume 88.8 Mean Corpuscular Hemoglobin 28.0 L Mean Corpuscular Hemoglobin Concent 31.5 L Red Cell Distribution Width 17.5 H Platelet Count 184 Mean Platelet Volume 11.8 H Immature Granulocytes % 0.500 H Neutrophils % 81.0 H Lymphocytes % 8.1 L Monocytes % 8.3 Eosinophils % 1.8 Basophils % 0.3 Nucleated Red Blood Cells % 0.1 H Immature Granulocytes # 0.090 H Neutrophils # 14.4 H Lymphocytes # 1.5 Monocytes # 1.5 H Eosinophils # 0.3 Basophils # 0.1 Nucleated Red Blood Cells # 0.0 Sodium Level 152 H Potassium Level 4.1 Chloride Level 123 H Carbon Dioxide Level 21 Anion Gap 8 Blood Urea Nitrogen 44 #H Creatinine 1.44 H Est Glomerular Filtrat Rate mL/min Glucose Level 94 # Calcium Level 11.3 H Total Bilirubin 0.0 L Direct Bilirubin 0.00 Indirect Bilirubin 0.0 Aspartate Amino Transf (AST/SGOT) 17 Alanine Aminotransferase (ALT/SGPT) < 6 L Alkaline Phosphatase 117 Total Protein 6.7 Albumin 3.1 L Globulin 3.60 H Albumin/Globulin Ratio 0.86 Procalcitonin 1.00 H Medications Medication Current Medications Acetaminophen (Tylenol Tab) 650 mg Q4 PRN PO MILD PAIN(1-3)OR ELEVATED TEMP Last administered on 03/05/19at 21:15; Admin Dose 650 MG; Start 02/06/19 at 00:00 Acetylcysteine (Mucomyst) 2 ml Q6H RESP THERAPY NEB Last administered on 03/07/19at 08:50; Admin Dose 2 ML; Start 02/06/19 at 02:00 Apixaban (Eliquis) 2.5 mg BID PO Last administered on 03/07/19 09:39; Admin Dose 2.5 MG; Start 02/06/19 at 09:00 Docusate Sodium (Colace) 100 mg QHS PO Last administered on 03/06/19at 20:34; Admin Dose 100 MG; Start 02/06/19 at 21:00 Fluticasone/ Vilanterol (Breo Ellipta 200-25 Mcg Inh) 1 inh DAILY INH Last administered on 03/07/19 09:39; Admin Dose 1 INH; Start 02/06/19 at 09:00 IV Flush (NS 3 ml) 3 ml PER PROTOCOL IV Last administered on 02/06/19 00:04; Admin Dose 3 ML; Start 02/06/19 at 00:00 Ondansetron HCl (Zofran Inj) 4 mg Q6H PRN IV NAUSEA/VOMITING; Start 02/06/19 at 00:00 Magnesium Hydroxide (Milk Of Mag) 30 ml DAILY PRN PO .CONSTIPATION; Start 02/06/19 at 00:00 Sodium Biphosphate/ Sodium Phosphate (Fleet Enema) 133 ml DAILY PRN [place] .CONSTIPATION; Start 02/06/19 at 00:00 Miscellaneous Information (Pending [facility] Order For Wound Care) This patient sawyer... PRN PRN XX WOUND CARE; Start 02/06/19 at 08:00 Albuterol/ Ipratropium (Duoneb) 3 ml Q6H RESP THERAPY HHN Last administered on 03/07/19at 08:40; Admin Dose 3 ML; Start 02/06/19 at 08:30 Doxycycline Hyclate (Vibramycin) 100 mg BID PO Last administered on 03/07/19at 09:39; Admin Dose 100 MG; Start 02/12/19 at 21:00 Guaifenesin (Robitussin Liquid Cup) 200 mg Q4H PRN PO COUGH; Start 02/18/19 at 18:00 Nystatin (Nystatin Powder) 1 applic BID TOP Last administered on 03/07/19 09:40; Admin Dose 1 APPLIC; Start 03/03/19 at 15:30 Clonidine (Catapres) 0.1 mg Q6H PRN PO sbp>180 or hr>100; Start 03/04/19 at 01:00 Sodium Chloride 1,000 ml @ 50 mls/hr Q20H IV Last administered on 03/07/19at 03:16; Admin Dose 50 MLS/HR; Start 03/05/19 at 10:30 Piperacillin Sod/ Tazobactam Sod 50 ml @ 100 mls/hr Q6 IVPB ; Start 03/07/19 at 12:00 BREEZY FRIAS MD March 07, 2019 13:06
[2019-03-07] MEDS ORDERED: DIPHENHYDRAMINE 50 MG INJ IV ONE (13:30)
[2019-03-07] MEDS ORDERED: ACETAMINOPHEN 325 MG TAB PO ONE (13:30)
[2019-03-07] MEDS: DOCUSATE SODIUM 100 MG CAP PO SCH (20:55)
[2019-03-07] MEDS ORDERED: METHYLDOPA 500 MG TAB PO SCH (21:00)
[2019-03-08] VITALS (10 sets, daily range): BP systolic 113–161; BP diastolic 56–79; PULSE 75–120; RESP 16–20
[2019-03-08] MEDS ORDERED: FUROSEMIDE 20 MG INJ IV ONE (00:18)
[2019-03-08] MEDS: PIPER-TAZO 2.25 GM (PMX) 50 ML IVPB SCH ×4 (00:25→18:15)
[2019-03-08] MEDS: SOD CHLORIDE 0.45% 1,000 ML IV SCH (00:33)
[2019-03-08] MEDS: ACETYLCYSTEINE 20% 4 ML VIAL NEB SCH ×4 (01:57→19:48)
[2019-03-08] MEDS: ALBUTEROL/IPRATROPIUM (NEB) 3 ML AMP HHN SCH ×3 (01:57→14:00)
--- NOTE | 2019-03-08 08:28 | CONS ---
Assessment/Plan Assessment/Plan Hospital Course (Demo Recall) 1) lethargy this seems to wax and wane pt's caregiver that last time he was in the hospital he got more lethargic from the meds he was given I doubt infection is causing his lethargy at this time 02/18 - pt less lethargic this a.m. but has confusion 03/03 - very poor po intake if no G-tube is planned consider hospice care 03/05 - pt is eating more (with liquid drinks with a straw) 03/06 - pt a bit more awake today 03/07 - slight further improvement 2) pyuria initial urine cx grew 50k c.glabrata and repeat shows <10k of c.alb I doubt either one is the cause of his pyuria agree to stopping of cefepime since he has neg cx for bacteria x2 I doubt he has an active UTI he may have some prostatitis and a trial of doxycycline to treat atypicals might be of benefit I will start doxycycline to treat possible prostatitis and if his pyuria does not resolve then I would recommend urology consult 02/13 - pt tolerating his doxycycline so far, continue for one month and re-check u/a, urine cx 1 week after he is done with his antibiotics 02/17 - due to elevated WBC will re-order u/a and urine cx 02/18 - pyuria persists urine cx has 5K colonies of likely enterococcus which is not significant continue doxycycline at present consider urology consult I will order urine for AFB cx 02/19 - urine cx from 02/17 only had 5k of enterococcus urine cx from 02/[address] Hancock noted pus in his urine when he urinated and believes pt retains small amout of pus in bladder due to small amout of residual urine left when he urinates pt has been placed on ampho B bladder irrigation, if repeat urine cx from yesterday remains neg can d/c the ampho B doubt pt would benefit from IV ampho B, if vijay is present the bladder irrigation should be sufficient continue with doxycycline CT shows no change in hyperdense mass to L lower kidney 02/20 - ur cx has >100k of yeast continue with ampho B irrigation (5 days as originally planned by Dr. Hancock) 02/24 - pt's 5th day of ampho B bladder irrigation was finished yesterday evening will order repeat u/a and urine cx 02/25 - repeat u/a is good, no significant pyuria/hematuria continue with doxycycline 02/26 - urine cx is negative continue with doxycycline thru 03/13 03/05 - repeat urine cx obtained early this a.m. and u/a again shows pyuria will await maturation of urine cx, on doxy still prior u/a on 02/24 was neg 03/06 - urine cx has <5k of probable enterococcus (not significant) 03/07 - pelvic MRI shows thickened bladder wall with trabeculations pt likely retains urine WBC is much improved repeat urine cx again and start zosyn (to cover lung too) 03/08 - stable on zosyn, CBC is still pending 3) COPD breathing is currently stable 02/17- CXR does not show raimundo pneumonia, his O2 sats have been stable will order procalcitonin, doubt he has pneumonia 02/18 - breathing is stable and pt appears comfortable procalcitonin is pending WBC is down a bit today CT chest is pending 02/19 - CT chest has smaller amount of infiltrates to lower lungs, doubt he has active pneumonia 02/20 - stable, procalcitonin is pending 02/21 - cefepime was started by Dr. Frias if procalcitonin comes back neg to d/c cefepime then 02/24 - procalcitonin was marginally elevated on cefepime, to repeat procalcitonin today 02/25 - procalcitonin now done in house, to order it for tomorrow a.m. to see if can d/c cefepime 02/27 - procalcitonin was neg on 02/26 03/06 - no acute change but due to leukocytosis will get CXR and check pro calcitonin in a.m. 03/07 - CXR is a bit worse WBC is improved, suspect some aspiration is going on start zosyn, await procalcitonin this a.m. and get one tomorrow a.m. 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 5) hx of DVT 6) CAD 7) HTN 8) hx of CVA 9) leukocytosis 02/17 - unexplained, no obvious source of infection CXR shows atelectasis/small pleural effusions and no change in O2 sats will order procalcitonin, u/a and urine cx 02/18 - urine cx only has 5k colonies of likely enterococcus which is not significant breathing is stable no diarrhea WBC a bit improved no additional antibiotics at this time CT chest/abd/pelv is pending 02/20 - RUE is swollen, will order RUE venous doppler continue with ampho B bladder irrigation and doxycycline await procalcitonin if elevated will start pneumonia treatment repeat urine cx has >100k yeast but doubt this is the source for his leukocyto sis check cbc, cmp in a.m. pt has persistent hypercalcemia 02/21 - RUE venous doppler was neg and swelling is less doubt he has cellulitis and doxycycline has excellent staph coverage, to d/c vanco on cefepime for possible pneumonia, if procalcitonin on 02/18 comes back neg then will d/c cefepime pt to complete his ampho B bladder irrigation after dose on 02/22 02/23 - improved WBC today pt has RUE IV infiltrated with small pustules and redness noted I have ordered cx of these pustules, continue with cefepime/doxy at present repeat u/a and urine cx now that ampho B bladder irrigation was completed last evening repeat procalcitonin this a.m. 02/26 - improved urine cx is neg wound cx from former IV site is growing e.coli+esbl, sensitive to cefepime, continue this for another 4 days 02/27 - procalcitonin was neg, so no active bacterial infection of lung 02/28 - doubt WBC scan will be useful 03/03 - WBC scan was neg 03/05 - WBC is mildly elevated, u/a shows pyuria, urine cx is pending pt is maintained on doxycycline, prior u/a on 02/24 was neg hold off on new antibiotics till urine cx matures R forearm continues to improve 03/06 - doubling of WBC and mild fever pelvic MRI is pending urine cx has <5k of probable enterococcus which is not significant will send stool from ileostomy for c.dif get blood cx x2 with one set via the picc line get CXR and check procalcitonin in a.m. R forearm looks good clinically pt is stable and would not start antibiotics till more info is available 03/07 - WBC is back down suspect some aspiration is going on, await procalcitonin from today and tomorrow urine is also suspect for persistent leukocytosis start zosyn until procalcitonin and repeat u/a and urine cx are back 03/08 - continue with zosyn, CBC is pending, but likely there is aspiration going on, as procalcitonin ida with some fevers and neg blood cx will stop zosyn when procalcitonin is <0.25 10) R forearm IV site infection 02/26 - due to e.coli+ESBL blood cx were negative though continue cefepime thru 03/01 02/27 - doubt yeast, CoNS or enterococcus are significant continue with cefepime thru 03/01 02/28 - this is improved on cefepime thru 03/01 (stop date put in ) 03/03 - stable WBC off cefepime no sign of forearm infection now I will sign off on case, thank you 03/05 - no sign of cellulitis, there is still swelling will have nurse take a culture from area of eschar and flaking skin to see if we can d/c isolation 03/06 - arm looks good, no sign of infection 03/07 - arm cx has no e.coli ok to d/c isolation if repeat urine cx does not have e.coli+ESBL in it 03/08 - to d/c isolation Consultation Date/Type/Reason Admit Date/Time Feb 05, 2019 at 20:14 Initial Consult Date 02/12/19 Type of Consult ID Requesting Provider: BREEZY FRIAS MD Date/Time of Note DATE: 03/08/19 TIME: 08:21 24 HR Interval Summary Free Text/Dictation no change Exam/Review of Systems Exam Vitals Vital Signs Date Temp Pulse Resp B/P (MAP) Pulse Ox O2 O2 Flow FiO2 Time Delivery Rate 03/08/19 98.6 109 18 144/62 95 Room Air 06:32 (89) 03/08/19 21 01:57 03/07/19 2.0 23:14 Intake and Output 03/07/19 03/07/19 03/08/19 1515:00 23:00 07:00 IntakeIntake Total 290 ml 670 ml 450 ml OutputOutput Total 650 ml 750 ml 250 ml BalanceBalance -360 ml -80 ml 200 ml Constitutional: non-verbal Respiratory: clear to auscultation Cardiovascular: regular rate and rhythm Gastrointestinal: soft, non-tender Extremities: other (RUE redness is resolved) Results Result Diagram: 03/07/1943803/07/19438 Medications Medication Current Medications Acetaminophen (Tylenol Tab) 650 mg Q4 PRN PO MILD PAIN(1-3)OR ELEVATED TEMP Last administered on 03/05/19 21:15; Admin Dose 650 MG; Start 02/06/19 at 00:00 Acetylcysteine (Mucomyst) 2 ml Q6H RESP THERAPY NEB Last administered on 03/08/19 01:57; Admin Dose 2 ML; Start 02/06/19 at 02:00 Apixaban (Eliquis) 2.5 mg BID PO Last administered on 03/07/19 20:54; Admin Dose 2.5 MG; Start 02/06/19 at 09:00 Docusate Sodium (Colace) 100 mg QHS PO Last administered on 03/07/19 20:55; Admin Dose 100 MG; Start 02/06/19 at 21:00 Fluticasone/ Vilanterol (Breo Ellipta 200-25 Mcg Inh) 1 inh DAILY INH Last administered on 03/07/19 09:39; Admin Dose 1 INH; Start 02/06/19 at 09:00 IV Flush (NS 3 ml) 3 ml PER PROTOCOL IV Last administered on 02/06/19at 00:04; Admin Dose 3 ML; Start 02/06/19 at 00:00 Ondansetron HCl (Zofran Inj) 4 mg Q6H PRN IV NAUSEA/VOMITING; Start 02/06/19 at 00:00 Magnesium Hydroxide (Milk Of Mag) 30 ml DAILY PRN PO .CONSTIPATION; Start 02/06/19 at 00:00 Sodium Biphosphate/ Sodium Phosphate (Fleet Enema) 133 ml DAILY PRN [place] .CONSTIPATION; Start 02/06/19 at 00:00 Miscellaneous Information (Pending [facility] Order For Wound Care) This patient sawyer... PRN PRN XX WOUND CARE; Start 02/06/19 at 08:00 Albuterol/ Ipratropium (Duoneb) 3 ml Q6H RESP THERAPY HHN Last administered on 03/08/19 01:57; Admin Dose 3 ML; Start 02/06/19 at 08:30 Doxycycline Hyclate (Vibramycin) 100 mg BID PO Last administered on 03/07/19at 20:54; Admin Dose 100 MG; Start 02/12/19 at 21:00 Guaifenesin (Robitussin Liquid Cup) 200 mg Q4H PRN PO COUGH; Start 02/18/19 at 18:00 Nystatin (Nystatin Powder) 1 applic BID TOP Last administered on 03/07/19at 21:34; Admin Dose 1 APPLIC; Start 03/03/19 at 15:30 Clonidine (Catapres) 0.1 mg Q6H PRN PO sbp>180 or hr>100; Start 03/04/19 at 01:00 Sodium Chloride 1,000 ml @ 50 mls/hr Q20H IV Last administered on 03/08/19at 00:33; Admin Dose 50 MLS/HR; Start 03/05/19 at 10:30 Piperacillin Sod/ Tazobactam Sod 50 ml @ 100 mls/hr Q6 IVPB Last administered on 03/08/19at 00:25; Admin Dose 100 MLS/HR; Start 03/07/19 at 12:00 MIGUELITO VASQUEZ MD March 08, 2019 08:28
[2019-03-08] MEDS ORDERED: AMLODIPINE 10 MG TAB PO SCH (09:00)
[2019-03-08] MEDS ORDERED: LISINOPRIL 20 MG TAB PO SCH (09:00)
[2019-03-08] MEDS: APIXABAN 5 MG TABLET PO SCH ×2 (09:12→21:18)
[2019-03-08] MEDS: DOXYCYCLINE 100 MG TAB PO SCH ×2 (09:12→21:18)
[2019-03-08] MEDS: FLUTICASONE/VILANTEROL 200-25 INH DEVICE INH SCH (09:13)
[2019-03-08] MEDS: BALSAM PERU/CASTOR OIL 60 GM TUBE TOP SCH ×2 (09:13→21:20)
[2019-03-08] MEDS: NYSTATIN 30 GM POWDER BTL TOP SCH ×2 (09:13→21:19)
--- NOTE | 2019-03-08 16:20 | PN ---
Date/Time of Note Date/Time of Note DATE: 03/08/19 TIME: 16:20 Assessment/Plan VTE Prophylaxis Risk score (from Ns)>0 risk: 8 SCD applied (from Ns): Yes Pharmacological prophylaxis: apixaban Lines/Catheters IV Catheter Type (from Nrs): Saline Lock Central line still needed: No Urinary Cath still in place: No Assessment/Plan Assessment/Plan 1. pyuria/ high wbc 2. ams/ dysphagia/ low po jose raul intake/ high Na 3. htn/ chf 4. copd 5. ckd II 6. 2 colostomies 7. high calc ---cont iv atbx ---d/c 1/2 ns ---inc po food/ fluid jose raul intake ---needs to talk to family re: tube feeding & code status Result Diagram: 03/08/1933 03/08/1933 Results 24hrs Laboratory Tests Test 03/08/19 07:33 White Blood Count 12.9 #H Red Blood Count 4.33 #L Hemoglobin 12.0 #L Hematocrit 37.8 #L Mean Corpuscular Volume 87.3 Mean Corpuscular Hemoglobin 27.7 L Mean Corpuscular Hemoglobin Concent 31.7 L Red Cell Distribution Width 16.6 H Platelet Count 148 Mean Platelet Volume 12.5 H Immature Granulocytes % 0.500 H Neutrophils % 74.5 Lymphocytes % 11.3 L Monocytes % 10.1 Eosinophils % 3.1 Basophils % 0.5 Nucleated Red Blood Cells % 0.0 Immature Granulocytes # 0.070 H Neutrophils # 9.6 H Lymphocytes # 1.5 Monocytes # 1.3 H Eosinophils # 0.4 Basophils # 0.1 Nucleated Red Blood Cells # 0.0 Sodium Level 154 H Potassium Level 3.9 Chloride Level 123 H Carbon Dioxide Level 22 Anion Gap 9 Blood Urea Nitrogen 43 H Creatinine 1.55 H Est Glomerular Filtrat Rate mL/min Glucose Level 99 Calcium Level 11.6 H Procalcitonin 0.53 H Subjective 24 Hr Interval Summary Free Text/Dictation opens eyes, trying to say but too soft voice Exam/Review of Systems Exam Vitals Vital Signs Date Temp Pulse Resp B/P (MAP) Pulse Ox O2 O2 Flow FiO2 Time Delivery Rate 03/08/19 110 20 119/58 95 Room Air 15:59 (78) 03/08/19 98.4 13:45 03/08/19 21 09:41 5/11/19 2.0 09:00 Intake and Output 03/07/19 03/07/19 03/08/19 1414:59 22:59 06:59 IntakeIntake Total 290 ml 670 ml 450 ml OutputOutput Total 650 ml 750 ml 250 ml BalanceBalance -360 ml -80 ml 200 ml Exam lethalgic, did not drink or eat much today, rr, dec bs bibasilar, no edema Results Results 24hrs Laboratory Tests Test 03/08/19 07:33 White Blood Count 12.9 #H Red Blood Count 4.33 #L Hemoglobin 12.0 #L Hematocrit 37.8 #L Mean Corpuscular Volume 87.3 Mean Corpuscular Hemoglobin 27.7 L Mean Corpuscular Hemoglobin Concent 31.7 L Red Cell Distribution Width 16.6 H Platelet Count 148 Mean Platelet Volume 12.5 H Immature Granulocytes % 0.500 H Neutrophils % 74.5 Lymphocytes % 11.3 L Monocytes % 10.1 Eosinophils % 3.1 Basophils % 0.5 Nucleated Red Blood Cells % 0.0 Immature Granulocytes # 0.070 H Neutrophils # 9.6 H Lymphocytes # 1.5 Monocytes # 1.3 H Eosinophils # 0.4 Basophils # 0.1 Nucleated Red Blood Cells # 0.0 Sodium Level 154 H Potassium Level 3.9 Chloride Level 123 H Carbon Dioxide Level 22 Anion Gap 9 Blood Urea Nitrogen 43 H Creatinine 1.55 H Est Glomerular Filtrat Rate mL/min Glucose Level 99 Calcium Level 11.6 H Procalcitonin 0.53 H Medications Medication Current Medications Acetaminophen (Tylenol Tab) 650 mg Q4 PRN PO MILD PAIN(1-3)OR ELEVATED TEMP Last administered on 03/05/19at 21:15; Admin Dose 650 MG; Start 02/06/19 at 00:00 Acetylcysteine (Mucomyst) 2 ml Q6H RESP THERAPY NEB Last administered on 03/08/19at 09:40; Admin Dose 2 ML; Start 02/06/19 at 02:00 Apixaban (Eliquis) 2.5 mg BID PO Last administered on 03/08/19 09:12; Admin Dose 2.5 MG; Start 02/06/19 at 09:00 Docusate Sodium (Colace) 100 mg QHS PO Last administered on 03/07/19at 20:55; Admin Dose 100 MG; Start 02/06/19 at 21:00 Fluticasone/ Vilanterol (Breo Ellipta 200-25 Mcg Inh) 1 inh DAILY INH Last administered on 03/08/19at 09:13; Admin Dose 1 INH; Start 02/06/19 at 09:00 IV Flush (NS 3 ml) 3 ml PER PROTOCOL IV Last administered on 02/06/19at 00:04; Admin Dose 3 ML; Start 02/06/19 at 00:00 Ondansetron HCl (Zofran Inj) 4 mg Q6H PRN IV NAUSEA/VOMITING; Start 02/06/19 at 00:00 Magnesium Hydroxide (Milk Of Mag) 30 ml DAILY PRN PO .CONSTIPATION; Start 02/06/19 at 00:00 Sodium Biphosphate/ Sodium Phosphate (Fleet Enema) 133 ml DAILY PRN [place] . CONSTIPATION; Start 02/06/19 at 00:00 Miscellaneous Information (Pending [facility] Order For Wound Care) This patient sawyer... PRN PRN XX WOUND CARE; Start 02/06/19 at 08:00 Albuterol/ Ipratropium (Duoneb) 3 ml Q6H RESP THERAPY HHN Last administered on 03/08/19at 09:40; Admin Dose 3 ML; Start 02/06/19 at 08:30 Doxycycline Hyclate (Vibramycin) 100 mg BID PO Last administered on 03/08/19at 09:12; Admin Dose 100 MG; Start 02/12/19 at 21:00 Guaifenesin (Robitussin Liquid Cup) 200 mg Q4H PRN PO COUGH; Start 02/18/19 at 18:00 Nystatin (Nystatin Powder) 1 applic BID TOP Last administered on 03/08/19at 0 9:13; Admin Dose 1 APPLIC; Start 03/03/19 at 15:30 Clonidine (Catapres) 0.1 mg Q6H PRN PO sbp>180 or hr>100 Last administered on 03/08/19at 14:00; Admin Dose 0.1 MG; Start 03/04/19 at 01:00 Miscellaneous Information (*Order Clarification Bulletin) MEDICATION REQUIRES CLARIFICATI... Q8H XX ; Start 03/08/19 at 09:30 Piperacillin Sod/ Tazobactam Sod 50 ml @ 100 mls/hr Q6 IVPB Last administered on 03/08/19at 13:59; Admin Dose 100 MLS/HR; Start 03/08/19 at 14:00 ARNOLD TAM MD March 08, 2019 16:20
[2019-03-08] MEDS ORDERED: POTASSIUM BICARBONATE 25 MEQ TAB PO ONE (16:30)
[2019-03-08] MEDS: DOCUSATE SODIUM 100 MG CAP PO SCH (21:18)
[2019-03-09] VITALS (8 sets, daily range): BP systolic 112–153; BP diastolic 58–77; PULSE 100–145; RESP 18–20
[2019-03-09] MEDS: PIPER-TAZO 2.25 GM (PMX) 50 ML IVPB SCH ×5 (00:01→23:25)
[2019-03-09] MEDS: ACETYLCYSTEINE 20% 4 ML VIAL NEB SCH ×4 (02:00→19:54)
[2019-03-09] MEDS ORDERED: IPRATROPIUM (NEB) 0.5 MG/2.5 ML AMP HHN PRN (08:00)
--- NOTE | 2019-03-09 08:02 | PN ---
Date/Time of Note Date/Time of Note DATE: 03/09/19 TIME: 08:02 Subjective weak, could not eat, could not drink Objective Vitals Vital Signs Date Temp Pulse Resp B/P (MAP) Pulse Ox O2 O2 Flow FiO2 Time Delivery Rate 03/09/19 98.0 108 18 118/60 95 Room Air 03:08 (79) 03/09/19 2.0 02:44 03/08/19 21 09:41 Intake and Output 03/08/19 03/08/19 03/09/19 1515:00 23:00 07:00 IntakeIntake Total 1250 ml 350 ml 100 ml OutputOutput Total 800 ml BalanceBalance 1250 ml -450 ml 100 ml opens eyes to name calling, slight nods to questions, rr, dec bs bibasilar, no c/c/e Results Result Diagram: 03/09/19 0432 03/09/19 0432 Medications Medications Current Medications Acetaminophen (Tylenol Tab) 650 mg Q4 PRN PO MILD PAIN(1-3)OR ELEVATED TEMP Last administered on 03/05/19 21:15; Admin Dose 650 MG; Start 02/06/19 at 00:00; Stop 03/15/19 at 23:59 Acetylcysteine (Mucomyst) 2 ml Q6H RESP THERAPY NEB Last administered on 03/08/19 09:40; Admin Dose 2 ML; Start 02/06/19 at 02:00; Stop 03/15/19 at 01:59 Apixaban (Eliquis) 2.5 mg BID PO Last administered on 03/08/19 21:18; Admin Dose 2.5 MG; Start 02/06/19 at 09:00 Docusate Sodium (Colace) 100 mg QHS PO Last administered on 03/08/19 21:18; Admin Dose 100 MG; Start 02/06/19 at 21:00; Stop 03/15/19 at 20:59 Fluticasone/ Vilanterol (Breo Ellipta 200-25 Mcg Inh) 1 inh DAILY INH Last administered on 03/08/19 09:13; Admin Dose 1 INH; Start 02/06/19 at 09:00; Stop 03/15/19 at 08:59 IV Flush (NS 3 ml) 3 ml PER PROTOCOL IV Last administered on 02/06/19at 00:04; Admin Dose 3 ML; Start 02/06/19 at 00:00; Stop 03/15/19 at 23:59 Ondansetron HCl (Zofran Inj) 4 mg Q6H PRN IV NAUSEA/VOMITING; Start 02/06/19 at 00:00; Stop 03/15/19 at 23:59 Magnesium Hydroxide (Milk Of Mag) 30 ml DAILY PRN PO .CONSTIPATION; Start 02/06/19 at 00:00; Stop 03/15/19 at 23:59 Sodium Biphosphate/ Sodium Phosphate (Fleet Enema) 133 ml DAILY PRN [place] .CONSTIPATION; Start 02/06/19 at 00:00; Stop 03/15/19 at 23:59 Miscellaneous Information (Pending [facility] Order For Wound Care) This patient sawyer... PRN PRN XX WOUND CARE; Start 02/06/19 at 08:00; Stop 03/15/19 at 07:59 Doxycycline Hyclate (Vibramycin) 100 mg BID PO Last administered on 03/08/19at 2 1:18; Admin Dose 100 MG; Start 02/12/19 at 21:00 Guaifenesin (Robitussin Liquid Cup) 200 mg Q4H PRN PO COUGH; Start 02/18/19 at 18:00 Nystatin (Nystatin Powder) 1 applic BID TOP Last administered on 03/08/19at 21:19; Admin Dose 1 APPLIC; Start 03/03/19 at 15:30 Clonidine (Catapres) 0.1 mg Q6H PRN PO sbp>180 or hr>100 Last administered on 03/08/19at 14:00; Admin Dose 0.1 MG; Start 03/04/19 at 01:00 Miscellaneous Information (*Order Clarification Bulletin) MEDICATION REQUIRES CLARIFICATI... Q8H XX ; Start 03/08/19 at 09:30 Piperacillin Sod/ Tazobactam Sod 50 ml @ 100 mls/hr Q6 IVPB Last administered on 03/09/19at 05:56; Admin Dose 100 MLS/HR; Start 03/08/19 at 14:00 VTE Prophylaxis Risk score (from Nsg)>0 risk: 7 SCD applied (from Ns): Yes Pharmacological prophylaxis: apixaban VTE Confirmed-Overlap Tx Rcvd Pt Rcvd Overlap Therapy: No Lines/Catheters IV Catheter Type: Saline Lock Central line still needed: No Lazaro in Place: No Assessment/Plan Assessment/Plan 1. dysphagia/ weak/ low po jose raul intake/ high Na 2. pyuria 3. copd 4. htn/ chf 5. leukocytosis 6. h/o dvt 7. ? hyper-parathyroid? 8. tachycardia ---transfer to [facility] hospital bed, ---cardiology ref, ---add d5w ---give lasix 20mg iv x1 ---cont iv atbx ---add vit d 1000iu qd ---needs to talk about ngt feed or PEG place ARNOLD TAM MD March 09, 2019 08:02
[2019-03-09] MEDS: APIXABAN 5 MG TABLET PO SCH ×3 (09:36→21:48)
[2019-03-09] MEDS: DOXYCYCLINE 100 MG TAB PO SCH ×3 (09:36→21:48)
[2019-03-09] MEDS: FLUTICASONE/VILANTEROL 200-25 INH DEVICE INH SCH (09:37)
[2019-03-09] MEDS: BALSAM PERU/CASTOR OIL 60 GM TUBE TOP SCH ×2 (09:38→21:48)
[2019-03-09] MEDS: NYSTATIN 30 GM POWDER BTL TOP SCH ×2 (09:38→21:48)
[2019-03-09] MEDS: DEXTROSE 5% 1,000 ML IV SCH ×2 (10:23→16:57)
[2019-03-09] MEDS ORDERED: DEXTROSE 5% WATER 500 ML BAG IV ONE (16:00)
[2019-03-09] MEDS: DOCUSATE SODIUM 100 MG CAP PO SCH ×2 (21:00→21:48)
[2019-03-09] MEDS ORDERED: FUROSEMIDE 20 MG INJ IV ONE ×2 (21:30)
[2019-03-09] MEDS ORDERED: DIGOXIN 500 MCG INJ IV ONE (23:30)
[2019-03-09] MEDS ORDERED: DIGOXIN 0.125 MG TAB PO ONE (23:30)
[2019-03-10] VITALS (14 sets, daily range): BP systolic 52–123; BP diastolic 32–70; PULSE 0–134; RESP 0–31
[2019-03-10] MEDS ORDERED: SUCCINYLCHOLINE CHLORIDE 100 MG/5 ML SYG IV ONE
[2019-03-10] MEDS ORDERED: ATROPINE 1 MG/10 ML SYRINGE ONE
[2019-03-10] MEDS ORDERED: AMIODARONE 150 MG INJ ONE
[2019-03-10] MEDS ORDERED: EPINEPHrine 10 MCG/1ml (10 ML SYG) IV ONE
[2019-03-10] MEDS ORDERED: NA BICARBONATE 8.4% 50 ML SYG ONE
[2019-03-10] MEDS ORDERED: CA CHLORIDE 10% 10 ML SYRINGE ONE
[2019-03-10] MEDS ORDERED: ETOMIDATE 20 MG INJ ONE
[2019-03-10] MEDS ORDERED: EPINEPHrine 4 MG in SOD CHLORIDE 0.9% 246 ML IV SCH (01:00)
[2019-03-10] MEDS ORDERED: SOD CHLORIDE 0.9% 1,000 ML IV ONE (01:30)
[2019-03-10] MEDS ORDERED: NORepinephrine 8MG/250 ML (PMX 250 ML IV PRN (01:30)
[2019-03-10] MEDS ORDERED: NA BICARBONATE 8.4% 50 ML SYG IV ONE (01:30)
[2019-03-10] MEDS ORDERED: PHENYLephrine 20MG IN 250 ML 250 ML ONE (01:33)
[2019-03-10] MEDS ORDERED: SODIUM BICARBONATE (IV ADD) 100 MEQ in DEXTROSE 5% 1,000 ML IV SCH (03:00)
[2019-03-10] MEDS ORDERED: PHENYLephrine 20MG IN 250 ML 250 ML IV PRN (03:00)
[2019-03-10] MEDS ORDERED: VASOPRESSIN 60 UNIT in DEXTROSE 5% 57 ML IV PRN (03:00)
--- NOTE | 2019-03-10 05:44 | EN ---
Date/Time of Note Date/Time of Note DATE: 03/10/19 TIME: 05:40 ER Progress Note I was called to the telemetry floor, for CODE BLUE, CPR was being done on arrival, intubated the patient on first pass without complication. A 7.5 ET tube was placed at approximately 22 cm above the paty, with good color change noted, CPR was continued, patient was given epinephrine, bicarb calcium, after approximately 15 minutes, Ross was achieved. On my assessment, the patient's pupils were fixed and dilated, I explained the poor prognosis to the patient's spouse, advised that we would continue to keep the patient is full code. Subsequently the patient had 6 more episodes of cardiac arrest in the setting of being on multiple pressor, on the last episode, I had an extensive discussion with the patient's family and discussed that at this point, the patient's chance of good neurologic outcome was extremely low, and that further aggressive management would be futile. They were in agreement with plan, and the patient was pronounced at approximately 3:06 AM ZAYRA MARTIN MD March 10, 2019 05:44
[2019-03-10] MEDS ORDERED: CHOLECALCIFEROL 1,000 UNIT TAB PO SCH (09:00)
[2019-03-10] MEDS ORDERED: DIGOXIN 500 MCG INJ IV SCH (13:00)
--- NOTE | 2019-03-17 15:54 | DES ---
Date/Time of Note Date/Time of Note DATE: 03/17/19 TIME: 15:28 Discharge/ Summary Admission/Discharge Info Admit Date/Time Feb 05, 2019 at 20:14 Date/Time 03/10/19 at 03:06 Final Diagnosis Sepsis Aspiration pneumonitis Gastroesophageal reflux COPD exacerbation Encephalopathy Lethargy Weakness Dehydration CHF Dehydration Urinary tract infection Chronic prostatitis Preliminary Cause of Sepsis Aspiration pneumonitis Admit History 83-year-old male brought in by his family members for progressive lethargy over two days so that he was unable to wake up to take his medications or eat. Work up in the emergency room shows elevated WBC, bun/creatinine and abnormal urine suggestive of dehydration and urosepsis and patient is admitted for IV antibiotics and IV fluid hydration. Hospital Course Patient was admitted with altered mental status and acute dehydration and leukouria. His mental status and dehydration improved with IV fluids and cefepime which were stopped when urine culture grew vijay glabata but no bacteria. Repeat cath UA still shows marked leukouria but culture grew vijay albicans. ID consult recommended treatment for prostatitis with 1 month of doxycycline. Patient was able to feed himself but needs full assist in transfer and ambulation even with PT treatment for a week. Was supposed to go to [facility] for continued therapy but patient developed leukocytosis and increased confusion just prior to discharge. Work up showed recurrent pyuria and Urology consultant intern recommended amphotericin bladder washings for 5 days. Patient was also found to have right elbow cellulitis with multiple organisms on cultures. He was treated with Cefepime and Doxycycline . His pyuria improved after treatment but lethargy and altered mental status persisted with the additional issue of malnutrition since patient refuses to eat when he is lethargic. Patient has fluctuating mental status with some days being awake and alert and responsive and some days he is somnolent all day. At 's request, we discontinued all psychotropic meds to see if his lethargy gets better. However since patient was still on Doxycycline for possible chronic prostatitis, a repeat urine analysis was obtained and shows recurrence of pyuria and WBC scan show anterior pelvis increased uptake. Pelvic MRI done last night did not show bladder abcess but chronic bladder wall thickening. Patient's mental status improved for 2 days off antidepressants and antihype rtensives but he developed fever and leukocytosis on March 06 and recurrence of lethargy on March 08. Work up was suggestive of aspiration pneumonitis and patient was started on Piperacillin/Tazobactam but he continued to deteriorate. On March 09 , patient became hypotensive and code blue was called. Patient was resusitated with fluids and transferred to ICU where he was started on pressure support meds. He was coded another 7 times in the ICU and family decided to change code status to DNR , allowing him to pass away at 0306 on March 10. BREEZY FRIAS MD March 17, 2019 15:46
== END 2019-03-10 03:06 | disposition expired | DRG 727 ==
LOC: E/R 16:37 → MS1 20:14 → TEL 03-09 22:20 → ICU 03-10 00:25
PROVIDERS: ADMIT Internal Medicine; ATTEND Internal Medicine
PROC: 0T9B70Z Drainage of Bladder with Drainage Device, Via Natural or Artificial Opening (ICD-10-PCS; principal; 2019-02-18)
PROC: 30233N1 Transfusion of Nonautologous Red Blood Cells into Peripheral Vein, Percutaneous Approach (ICD-10-PCS; 2019-03-07)
PROC: 5A1935Z Respiratory Ventilation, Less than 24 Consecutive Hours (ICD-10-PCS; 2019-03-10)
PROC: 0BH17EZ Insertion of Endotracheal Airway into Trachea, Via Natural or Artificial Opening (ICD-10-PCS; 2019-03-10)
PROC: 5A12012 Performance of Cardiac Output, Single, Manual (ICD-10-PCS; 2019-03-10)
DX: B37.49 Other urogenital candidiasis (principal); L89.813 Pressure ulcer of head, stage 3; A41.9 Sepsis, unspecified organism; J69.0 Pneumonitis due to inhalation of food and vomit; I13.0 Hypertensive heart and chronic kidney disease with heart failure and stage 1 through stage 4 chronic kidney disease, or unspecified chronic kidney disease; G93.40 Encephalopathy, unspecified; E46 Unspecified protein-calorie malnutrition; J44.1 Chronic obstructive pulmonary disease with (acute) exacerbation; L03.113 Cellulitis of right upper limb; I82.519 Chronic embolism and thrombosis of unspecified femoral vein; E87.1 Hypo-osmolality and hyponatremia; E86.0 Dehydration; D72.829 Elevated white blood cell count, unspecified; D63.1 Anemia in chronic kidney disease; D63.8 Anemia in other chronic diseases classified elsewhere; E78.00 Pure hypercholesterolemia, unspecified; E83.42 Hypomagnesemia; E87.5 Hyperkalemia; E83.52 Hypercalcemia; F03.90 Unspecified dementia, unspecified severity, without behavioral disturbance, psychotic disturbance, mood disturbance, and anxiety; F32.9 Major depressive disorder, single episode, unspecified; F41.9 Anxiety disorder, unspecified; G72.9 Myopathy, unspecified; I50.9 Heart failure, unspecified; I25.10 Atherosclerotic heart disease of native coronary artery without angina pectoris; I46.9 Cardiac arrest, cause unspecified; I48.0 Paroxysmal atrial fibrillation; K21.9 Gastro-esophageal reflux disease without esophagitis; L89.152 Pressure ulcer of sacral region, stage 2; M75.92 Shoulder lesion, unspecified, left shoulder; N18.2 Chronic kidney disease, stage 2 (mild); N41.1 Chronic prostatitis; N30.20 Other chronic cystitis without hematuria; N28.89 Other specified disorders of kidney and ureter; R53.83 Other fatigue; R13.10 Dysphagia, unspecified; R00.0 Tachycardia, unspecified; R53.1 Weakness; R53.81 Other malaise; Z66 Do not resuscitate; Z68.26 Body mass index [BMI] 26.0-26.9, adult; Z93.3 Colostomy status; Z93.2 Ileostomy status; Z86.73 Personal history of transient ischemic attack (TIA), and cerebral infarction without residual deficits; Z85.038 Personal history of other malignant neoplasm of large intestine; Z87.891 Personal history of nicotine dependence; Z79.01 Long term (current) use of anticoagulants
CPT/HCPCS: 31500; 36415; 36430; 36600; 71045; 71250; 72197; 73030; 73223; 74176; 78806; 80048; 80053; 81001; 82040; 82140; 82270; 82533; 82803; 82962; 83036; 83540; 83690; 83735; 83970; 84134; 84145; 84403; 84439; 84443; 84481; 84484; 85025; 85651; 86885; 86900; 86901; 86920; 87070; 87075; 87081; 87086; 87116; 92950; 93005; 93971; 94002; 94640; 94664; 94770; 96361; 96374; 96375; 97110; 97162; 97530; A4310; A9570; J0171; J0282; J0285; J0461; J0692; J1200; J1630; J1885; J1940; J2370; J2543; J2916; J3370; J3475; J7030; J7050; J7060; J7070; P9016; Q9967